=== PATIENT | female | born 1955 | race American Indian/Alaskan Native ===

== ENCOUNTER 2016-08-20 14:52 | Outpatient (CLI) | payer BC | END 2016-08-20 14:53 | disposition home or self-care (01) | LOC: LABHHL 14:52 | PROVIDERS: ATTEND Internal Medicine Gastroenterology | DX: D12.6 Benign neoplasm of colon, unspecified (principal) | CPT/HCPCS: 88305 ==

== ENCOUNTER 2019-10-01 04:50 | Inpatient (IN) | payer BC ==
--- NOTE | 2019-10-01 05:35 | Emergency Department Report ---
Blank Doc - Documentation Documentation: 64-year-old female with history of hypertension, diabetes presents to ED with shortness of breath. Patient arrives to ED via EMS. Upon arrival at patient's home, EMS reports patient had room air O2 sats in the 40s. States O2 sats improved to the 90s on nonrebreather. 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 Patient states she was sent home 5 days ago from work due to URI symptoms. Patient denies fever, vomiting, diarrhea. Reports cough, headache, loss of sense of smell and taste. Patient has not been tested for COVID-19. Here in the ED, her O2 sats are 74% on nonrebreather, respiratory rate in the 50s. Patient states she does not want to be intubated. For now, patient has been placed on high flow nasal cannula, and instructed to lay in the prone position. O2 sats have increased to 88%. Preliminary labs and CXR ordered.
[2019-10-01 06:17] LABS: INR 1.15 (0.87-1.13)
[2019-10-01] MEDS ORDERED: IPRATROPIUM 0.02% NEBU 2.5 ML IH ONE (06:17)
[2019-10-01] MEDS ORDERED: ALBUTEROL 2.5 MG/3 ML NEBU IH ONE (06:17)
[2019-10-01 06:18] LABS: Partial Thromboplastin Time 28.6 Sec. (24.2-36.6)
--- NOTE | 2019-10-01 06:23 | XRay Report ---
CHEST 1 VIEW 5:42 AM INDICATION / CLINICAL INFORMATION: Shortness of breath and cough. COMPARISON: None available. FINDINGS: SUPPORT DEVICES: None. HEART / MEDIASTINUM: The heart size and pulmonary vasculature are normal. LUNGS / PLEURA: There is moderately severe parenchymal disease throughout both lungs, more prominent in the lower lung zones especially peripherally. Disease is predominantly groundglass in appearance. No significant pleural effusion. No pneumothorax. ADDITIONAL FINDINGS: No significant additional findings. IMPRESSION: Moderately severe groundglass parenchymal disease bilaterally, more prominent in the mid to lower lung zones peripherally. Atypical causes of pneumonia, including viral pneumonia, should be considered. Signer Name: Alphonse Chan MD Signed: 10/01/2019 6:18 AM Workstation Name: [id number]
[2019-10-01 06:25] LABS: Alanine Aminotransferase 64 units/L (7-56); Albumin 3.4 g/dL (3.9-5); BUN/Creatinine Ratio 24; Bilirubin,Direct < 0.2 mg/dL (0-0.2); Blood Urea Nitrogen 34 mg/dL (7-17); Calcium 8.9 mg/dL (8.4-10.2); Hemolysis Index 24
[2019-10-01] MEDS ORDERED: AZITHROMYCIN 500 MG in SODIUM CHLORIDE 0.9% 250ML 250 ML IV ONE (06:25)
[2019-10-01] MEDS ORDERED: cefTRIAXone/NS 1 GM/50 ML 1 GM/50 ML BAG IV ONE (06:25)
[2019-10-01 06:27] LABS: C-Reactive Protein 15.1 mg/dL (0.00-1.30)
[2019-10-01] MEDS ORDERED: SODIUM CHLORIDE 0.9% 1000 ML 1,000 ML IV ONE (06:31)
--- NOTE | 2019-10-01 06:44 | Emergency Department Report ---
HPI - General Chief Complaint: Dyspnea/Respdistress Time Seen by Provider: 10/01/19 06:05 - HPI HPI: This is a 64-year-old -[place] Citizen female presents to the emergency department via EMS from home with a complaint of shortness of breath and coughing that has been getting progressively worse over the past 4 days. 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 She denies any tobacco or illicit drug use. When EMS arrived to her house they found her to be short of breath with a pulse ox of 43% on room air. She was placed on a nonrebreather and transported to our facility. She denies any fever, chest pain, nausea, vomiting. ED Past Medical Hx - Social History Smoking Status: Never Smoker Substance Use Type: None ED Review of Systems ROS: Stated complaint: SOB Other details as noted in HPI Comment: All other systems reviewed and negative Constitutional: weakness. denies: fever Eyes: denies: eye pain, vision change ENT: denies: ear pain, throat pain Respiratory: cough, shortness of breath Cardiovascular: denies: chest pain, palpitations Gastrointestinal: denies: abdominal pain, vomiting Genitourinary: denies: dysuria, discharge Musculoskeletal: denies: back pain, arthralgia Skin: denies: rash, lesions Neurological: denies: headache, weakness Physical Exam - Physical Exam Vital Signs: Vital Signs 10/01/19 10/01/19 10/01/19 05:09 05:41 06:30 Temperature 98.0 F Pulse Rate 100 H Pulse Rate [ Throughout] Respiratory 26 H 26 H Rate Respiratory Rate [ Throughout] Blood Pressure 160/94 O2 Sat by Pulse 72 L 72 L 86 Oximetry 10/01/19 06:37 Temperature Pulse Rate Pulse Rate [ 98 H Throughout] Respiratory Rate Respiratory 40 H Rate [ Throughout] Blood Pressure O2 Sat by Pulse Oximetry Physical Exam: GENERAL: The patient is well-developed well-nourished. Ill-appearing. HENT: Normocephalic. Atraumatic. Patient has moist mucous membranes. EYES: Extraocular motions are intact. NECK: Supple. Trachea is midline. CHEST/LUNGS: There is tachypnea, accessory muscle use and conversational dyspne a. There is respiratory distress noted. HEART/CARDIOVASCULAR: Regular. There is moderate tachycardia. There is no murmur. ABDOMEN: Abdomen is soft, nontender. There is no abdominal distention. SKIN: Skin is warm and dry. NEURO: The patient is awake, alert, and oriented. No focal, motor or sensory deficits. MUSCULOSKELETAL: There is no tenderness or deformity. There is no evidence of acute injury. ED Course Vital Signs 10/01/19 10/01/19 10/01/19 05:09 05:41 06:30 Temperature 98.0 F Pulse Rate 100 H Pulse Rate [ Throughout] Respiratory 26 H 26 H Rate Respiratory Rate [ Throughout] Blood Pressure 160/94 O2 Sat by Pulse 72 L 72 L 86 Oximetry 10/01/19 06:37 Temperature Pulse Rate Pulse Rate [ 98 H Throughout] Respiratory Rate Respiratory 40 H Rate [ Throughout] Blood Pressure O2 Sat by Pulse Oximetry - ABG Interpretation Ph: [phone] PCO2: 46 PO2: 60 Bicarbonate: 20 Interpretation: respiratory acidosis, metabolic acidosis - Intubation Time Out Performed: Yes Sedative: Etomidate Mg Given: 20 Paralytic: Rocuronium Mg Given: 80 Laryngoscope: other ([place] Scope) Size: 4 ET Tube Size: 7.5 Tube Secured Depth (cm): 24 Tube Secured Location: lips Tube Placement Confirmation: visualized tube passing t, equal breath sounds bilat, confirmation by capnometr Intubation Complications: none ED Medical Decision Making - Lab Data Result diagrams: 10/01/19 06:31 10/01/19 12:24 - EKG Data -: EKG Interpreted by Me EKG shows normal: sinus rhythm, axis (Left axis deviation), intervals, QRS complexes (LVH), ST-T waves Rate: tachycardia (102 bpm) - EKG Data When compared to previous EKG there are: previous EKG unavailable Interpretation: LVH (With mild tachycardia at 103 bpm) - Radiology Data Radiology results: image reviewed interpreted by me: Chest x-ray shows diffuse bilateral opacities. - Medical Decision Making This patient presents to the emergency department with a 4-day history of progressively worsening shortness of breath and cough. Patient was hypoxic when picked up by EMS and continues to have some hypoxia in the high 80s and low 90s with high flow nasal cannula. On top of that patient continues to have some increased work of breathing with tachypnea and conversational dyspnea and accessory muscle use. I spoke to the patient about possibility of intubation but she is very resistant. Patient was placed on BiPAP which did help at first with her oxygen saturation and work of breathing. She was given some IV fluid resuscitation and DuoNeb breathing treatment. A chest x-ray was done which shows diffuse opacities. Patient's labs shows acute kidney injury/renal i nsufficiency, and a mild elevation in the LFTs, elevated inflammatory markers such as d-dimer, CRP, LDH, ferritin. Eventually patient stopped tolerating the BiPAP. She has been pulling out IVs and continuously pulls off her mask. At this point I once again spoke with patient and spoke with her about intubation and she was in agreement. She was given rocuronium and etomidate and intubated successfully using the glide scope. Patient's coronavirus PCR has just come back positive. She is being admitted to the ICU and was accepted for admission by the hospitalist service. Critical Care Time: Yes Critical care time in (mins) excluding proc time.: 45 Critical care attestation.: If time is entered above; I have spent that time in minutes in the direct care of this critically ill patient, excluding procedure time. Critical care time was spent on this patient in doing her initial evaluation, multiple re-evaluations, ordering and interpretation of labs and imaging, IV fluid resuscitation, IV antibiotics, titration of supplemental oxygen and mechanical ventilation with BiPAP. This does not include the time spent doing the intubation procedure. Critical Care Time: 45 minutes ED Disposition Clinical Impression: Suspected 2019 novel coronavirus infection, Hyperglycemia, Hypoxia, FANI (acute kidney injury) Acute respiratory failure Qualifiers: Respiratory failure complication: hypoxia Qualified Code(s): J96.01 - Acute respiratory failure with hypoxia Disposition: -09 OP ADMIT IP TO THIS HOSP Is pt being admited?: Yes Condition: Serious Time of Disposition: 08:04
[2019-10-01 07:43] LABS: Hematocrit 41.7 % (30.3-42.9); Hemoglobin 13.7 gm/dl (10.1-14.3); Mean Corpuscular HGB Conc 33 % (30-34); Mean Corpuscular Volume 91 fl (79-97); Platelet Count 259 K/mm3 (140-440); Red Cell Distribution Width 14.7 % (13.2-15.2)
[2019-10-01] MEDS ORDERED: INSULIN REGULAR, HUMAN 100 UNITS/1 ML IV ONE (08:01)
--- NOTE | 2019-10-01 08:33 | History and Physical Report ---
History of Present Illness Date of examination: 10/01/19 Date of admission: 10/01/19 Chief complaint: Hypoxic respiratory failure History of present illness: Patient is a 64-year-old female with past medical history of hypertension, diabetes presents to ED with shortness of breath. 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 and a few days ago was sent home due to upper respiratory infection syndromes. Unfortunately the symptoms worsened and the patient activated the EMS system and according to documentation upon arrival to the first to the home patient was noted to have an oxygen sat in the 40s which improved to the 90s and a nonrebreather. On arrival to the ED the patient was with increased work of breathing while the patient reports shortness of breath and cough with associated headache and loss of sense of smell and taste she denied any nausea vomiting or diarrhea she denied week evaluation in the ED showed that her respiratory rate was closer to the 50s the patient refused intubation. She was placed on a BiPAP and were consulted to admit the patient. Patient very lethargic could not provide me much information is arrest information is obtained from record Past History Past Medical History: hypertension, hyperlipidemia Past Surgical History: No surgical history Social history: no significant social history Family history: no significant family history Medications and Allergies Allergies Allergy/AdvReac Type Severity Reaction Status Date / Time No Known Allergies Allergy Verified 10/01/19 06:31 Active Meds: Active Medications Sodium Chloride (Nacl 0.9% 1000 Ml) 1,000 mls @ 125 mls/hr IV ONCE ONE Stop: 10/01/19 14:30 Review of Systems All systems: negative Constitutional: fatigue, weakness, malaise, lethargy, no fever, no chills Cardiovascular: shortness of breath Respiratory: shortness of breath Exam - Physical Exam Narrative exam: VITAL SIGNS: Reviewed. GENERAL: The patient appears normally developed, Vital signs as documented. HEAD: No signs of head trauma. EYES: Pupils are equal. Extraocular motions intact. EARS: Hearing grossly intact. MOUTH: Oropharynx is normal. NECK: No adenopathy, no JVD. CHEST: Chest with diminished breath sounds bilaterally. With increased work of breathing no wheezes, rales, or rhonchi. CARDIAC: Tachycardic S1 and S2, without murmurs, gallops, or rubs. VASCULAR: No Edema. Peripheral pulses normal and equal in all extremities. ABDOMEN: Soft, non tender and non distended. No rebound or guarding, and no masses palpated. Bowel Sounds normal. MUSCULOSKELETAL: Good range of motion of all major joints. Extremities without clubbing, cyanosis or edema. NEUROLOGIC EXAM: Awake but lethargic anxious no focal sensory or strength deficits. Speech normal. Follows commands. PSYCHIATRIC: Mood anxious SKIN: detial exam as documented in skin assessment - Constitutional Vitals: Temp Pulse Resp BP Pulse Ox 98.0 F 98 H 40 H 160/94 86 10/01/19 05:09 10/01/19 06:37 10/01/19 06:37 10/01/19 05:09 10/01/19 06:30 HEART Score - HEART Score Troponin: Troponin T 0.018 ng/mL (0.00-0.029) 10/01/19 05:36 Results - Labs CBC & Chem 7: 10/01/19 06:31 10/01/19 12:24 Labs: Laboratory Last Values WBC 12.8 K/mm3 (4.5-11.0) H 10/01/19 06:31 RBC 4.60 M/mm3 (3.65-5.03) 10/01/19 06:31 Hgb 13.7 gm/dl (10.1-14.3) 10/01/19 06:31 Hct 41.7 % (30.3-42.9) 10/01/19 06:31 MCV 91 fl (79-97) 10/01/19 06:31 MCH 30 pg (28-32) 10/01/19 06:31 MCHC 33 % (30-34) 10/01/19 06:31 RDW 14.7 % (13.2-15.2) 10/01/19 06:31 Plt Count 259 K/mm3 (140-440) 10/01/19 06:31 Lymph % (Auto) Assistant Center Director 10/01/19 06:31 Pine % (Auto) Assistant Center Director 10/01/19 06:31 Eos % (Auto) Assistant Center Director 10/01/19 06:31 Baso % (Auto) Assistant Center Director 10/01/19 06:31 Lymph # Assistant Center Director 10/01/19 06:31 Pine # Assistant Center Director 10/01/19 06:31 Eos # Assistant Center Director 10/01/19 06:31 Baso # Assistant Center Director 10/01/19 06:31 Seg Neutrophils % Assistant Center Director 10/01/19 06:31 Seg Neutrophils # Assistant Center Director 10/01/19 06:31 PT 14.5 Sec. (12.2-14.9) 10/01/19 05:36 INR 1.15 (0.87-1.13) H 10/01/19 05:36 APTT 28.6 Sec. (24.2-36.6) 10/01/19 05:36 D-Dimer 1648.23 ng/mlDDU (0-234) H 10/01/19 05:36 Sodium 139 mmol/L (137-145) 10/01/19 05:36 Potassium 4.2 mmol/L (3.6-5.0) 10/01/19 05:36 Chloride 100.9 mmol/L (98-107) 10/01/19 05:36 Carbon Dioxide 13 mmol/L (22-30) L 10/01/19 05:36 Anion Gap 29 mmol/L 10/01/19 05:36 BUN 34 mg/dL (7-17) H 10/01/19 05:36 Creatinine 1.4 mg/dL (0.7-1.2) H 10/01/19 05:36 Estimated GFR 46 ml/min 10/01/19 05:36 BUN/Creatinine Ratio 24 % 10/01/19 05:36 Glucose 413 mg/dL (65-100) H 10/01/19 05:36 Glucose 424 mg/dL (65-100) H 10/01/19 05:36 Ketones Quantitative Negative (Negative) 10/01/19 06:31 Lactic Acid 7.20 mmol/L (0.7-2.0) H* 10/01/19 05:36 Calcium 8.9 mg/dL (8.4-10.2) 10/01/19 05:36 Ferritin 1745.0 ng/mL (13.0-400.0) H 10/01/19 05:36 Total Bilirubin 0.30 mg/dL (0.1-1.2) 10/01/19 05:36 Direct Bilirubin < 0.2 mg/dL (0-0.2) 10/01/19 05:36 Indirect Bilirubin 0.1 mg/dL 10/01/19 05:36 AST 54 units/L (5-40) H 10/01/19 05:36 ALT 64 units/L (7-56) H 10/01/19 05:36 Alkaline Phosphatase 94 units/L (35-129) 10/01/19 05:36 Lactate Dehydrogenase 822 units/L (91-180) H 10/01/19 05:36 Troponin T 0.018 ng/mL (0.00-0.029) 10/01/19 05:36 C-Reactive Protein 15.10 mg/dL (0.00-1.30) H 10/01/19 05:36 Total Protein 6.6 g/dL (6.3-8.2) 10/01/19 05:36 Albumin 3.4 g/dL (3.9-5) L 10/01/19 05:36 Albumin/Globulin Ratio 1.1 % 10/01/19 05:36 Microbiology: Microbiology 10/01/19 05:38 Peripheral/Venous Blood Culture - Preliminary Culture in Progress 10/01/19 05:36 Peripheral/Venous Blood Culture - Preliminary Culture in Progress Assessment and Plan Assessment and plan: Patient is a 64-year-old female with past medical history of hypertension, diabetes presents to ED with shortness of breath. 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 Unfortunately the symptoms worsened and the patient activated the EMS system and according to documentation upon arrival to the first to the home patient was noted to have an oxygen sat in the 40s which improved to the 90s and a nonrebreather. On arrival to the ED the patient was with increased work of breathing while the patient reports shortness of breath and cough with associated headache and loss of sense of smell and taste she denied any nausea vomiting or diarrhea she denied week evaluation in the ED showed that her respiratory rate was closer to the 50s the patient refused intubation. She was placed on a BiPAP and were consulted to admit the patient. Patient very lethargic could not provide me much information is arrest information is obtained from record Acute hypoxic respiratory failure Sepsis secondary to viral pneumonia Hypertensive urgency Diabetes mellitus Present under investigation highly suspicious for COVID-19 Secondary coagulopathy Plan Admit to ICU patient low threshold for intubation Pulmonary consult Infectious disease consult Continue antibiotics obtain COVID-19 testing and inflammatory markers which are currently elevated Monitor liver exams Continue empiric antibiotics Due to high suspicion for COVID-19 will not give aggressive fluid resuscitation at this time DVT and GI prophylaxis plan of care discussed with the patient and also with the ED nurse and physician. Also discussed with the consultants. The high probability of a clinically significant, sudden or life threatening deterioration of the [pulmonary] system(s) required my full and direct attention, intervention and personal management. The aggregate critical care time was [90] minutes. This time is in addition to time spent performing reported procedures but includes the following: [x] Data Review and interpretation [x] Patient assessment and monitoring of vital signs [x] Documentation [x] Medication orders and management Advance Directives: Yes Plan of care discussed with patient/family: Yes
[2019-10-01 08:41] LABS: Band Neutrophils # (Manual) 0.5 K/mm3; Basophils % (Manual) 0 % (0.0-1.8); Eosinophils % (Manual) 0 % (0.0-4.3); Platelet Estimate Consistent w Auto; RBC Morphology Normal; Total Cells Counted 100
[2019-10-01] MEDS ORDERED: NALOXONE 0.4 MG/1 ML INJ IV PRN (09:10)
[2019-10-01] MEDS ORDERED: METOCLOPRAMIDE 10 MG/2 ML INJ IV PRN (09:10)
[2019-10-01] MEDS ORDERED: DEXTROSE 50% IN WATER (25GM) 50 ML SYRINGE IV PRN (09:10)
[2019-10-01] MEDS ORDERED: ACETAMINOPHEN 325 MG TAB PO PRN (09:10)
[2019-10-01] MEDS ORDERED: ALBUTEROL 2.5 MG/3 ML NEBU IH PRN (09:10)
[2019-10-01] MEDS ORDERED: INSULIN NPH/REGULAR 70/30 INJ SUB-Q SCH (10:00)
[2019-10-01] MEDS ORDERED: ARFORMOTEROL 15 MCG/2 ML NEBU IH ONE (10:15)
[2019-10-01] MEDS: ARFORMOTEROL 15 MCG/2 ML NEBU IH SCH ×2 (10:29→23:15)
[2019-10-01] MEDS ORDERED: amLODIPine 10 MG TAB ONE (10:44)
[2019-10-01] MEDS: INSULIN NPH/REGULAR 70/30 INJ SUB-Q SCH ×2 (10:44→21:42)
[2019-10-01 13:16] LABS: C-Reactive Protein 18.6 mg/dL (0.00-1.30)
[2019-10-01] MEDS ORDERED: ETOMIDATE 20 MG/10 ML INJ IV ONE (13:25)
[2019-10-01] MEDS ORDERED: ROCURONIUM 50 MG/5 ML INJ IV ONE (13:26)
[2019-10-01] MEDS ORDERED: MINERAL OIL/PETROLATUM, WHITE OPHTH OINT 3.5 GM OU PRN (13:33)
[2019-10-01] MEDS ORDERED: LIP THERAPY VASELINE TP PRN (13:33)
--- NOTE | 2019-10-01 14:37 | XRay Report ---
CHEST 1 VIEW INDICATION: ETT placement. COMPARISON: 10/01/2019 FINDINGS: Support devices: Endotracheal tube terminates 5.4 cm superior to the natasha. A nasogastric tube termi nates just beyond the GE junction. Consider advancement by 5 to 10 cm. Heart: Within normal limits. Lungs/Pleura: Bilateral lung infiltrates appear relatively stable since earlier today. No pleural eff usion or pneumothorax. Additional findings: None. IMPRESSION: Lines and tubes as described. Stable bilateral infiltrates. Signer Name: Beka Riley Jr, MD Signed: 10/01/2019 2:33 PM Workstation Name: [id number]
[2019-10-01 14:38] LABS: ABG Base Excess -6.4 mmol/L (-2.0-3.0); ABG HCO3 20.6 mmol/L (20.0-26.0); ABG Methemoglobin 0.7 % (0.0-1.5); ABG Oxygen Saturation 88.2 % (95.0-99.0); ABG PCO2 46.7 mm Hg; ABG PH 7.263 pH Units (7.350-7.450); ABG PO2 60.7 mm Hg (80.0-90.0)
--- NOTE | 2019-10-01 14:47 | Consultation ---
History of Present Illness Consult date: 10/01/19 Requesting physician: ROBBY COATES Reason for consult: other (Acute hypercapnic and hypoxemic respiratory failure; Severe Sepsis) History of present illness: PULMONARY/CCM CONSULT NOTE (Full dictation # [id number]) Please see dictated notes for full details Medications and Allergies Allergies Allergy/AdvReac Type Severity Reaction Status Date / Time No Known Allergies Allergy Verified 10/01/19 06:31 Active Meds: Active Medications Acetaminophen (Tylenol) 650 mg PO Q6H PRN PRN Reason: Pain MILD(1-3)/Fever >100.5/PALOMARES Albuterol (Proventil) 2.5 mg IH Q3HRT PRN PRN Reason: Shortness Of Breath Albuterol/Ipratropium (Duoneb *Not For Prn Use*) 1 ampul IH Q6HRT [facility] Amlodipine Besylate (Amlodipine) 10 mg PO QDAY [facility] Arformoterol Tartrate (Brovana Nebu) 15 mcg IH Q12HRT [facility] Last Admin: 10/01/19 10:29 Dose: 15 mcg Documented by: Budesonide (Pulmicort) 0.5 mg IH Q12HRT [facility] Dextrose (D50w (25gm) Syringe) 50 ml IV Q30MIN PRN; Protocol PRN Reason: Hypoglycemia Hydralazine HCl (Apresoline) 10 mg IV Q4HR PRN PRN Reason: Hypertension Hydrophilic Ointment (Vaseline Lip Therapy) 1 applic TP Q2HR PRN PRN Reason: Dry Lips Ceftriaxone Sodium (Rocephin/Ns 2 Gm/100 Ml) 2 gm in 100 mls @ 200 mls/hr IV Q24HR [facility]; Protocol Azithromycin 500 mg/ Sodium (Chloride) 250 mls @ 250 mls/hr IV Q24HR [facility]; Protocol Propofol (Diprivan 10 Mg/Ml) 1,000 mg in 100 mls @ 1.905 mls/hr IV TITR [facility]; Protocol Insulin Human Isoph/Insulin Regular (Humulin 70/30) 30 unit SUB-Q BIDDIAB [facility] Last Admin: 10/01/19 10:44 Dose: 30 unit Documented by: Insulin Human Lispro (Humalog) 0 unit SUB-Q Q6HR [facility]; Protocol Methylprednisolone Sodium Succinate (Solu-Medrol) 40 mg IV Q8HR [facility] Metoclopramide HCl (Reglan) 10 mg IV Q6H PRN PRN Reason: Nausea And Vomiting Multi-Ingred Cream/Lotion/Oil/Oint (Artificial Tears Ophth Oint) 1 applic OU Q4HR PRN PRN Reason: Dry Eye(s) Naloxone HCl (Naloxone) 0.1 mg IV Q2MIN PRN PRN Reason: Res Rate </= 8 or 02 SAT < 92% Sodium Chloride (Sodium Chloride Flush Syringe 10 Ml) 10 ml IV BID [facility] Last Admin: 10/01/19 11:36 Dose: 10 ml Documented by: Sodium Chloride (Sodium Chloride Flush Syringe 10 Ml) 10 ml IV PRN PRN PRN Reason: LINE FLUSH Spironolactone (Aldactone) 50 mg PO BID [facility] Physical Examination Vital signs: Vital Signs Pulse Resp Pulse Ox 130 H 23 66 L 10/01/19 05:00 10/01/19 05:00 10/01/19 05:00 Results - Laboratory Findings CBC and BMP: 10/01/19 06:31 10/01/19 12:24 ABG ABG pH 7.263 pH Units (7.350-7.450) L 10/01/19 14:30 ABG pCO2 46.7 mm Hg 10/01/19 14:30 ABG pO2 60.7 mm Hg (80.0-90.0) L 10/01/19 14:30 ABG O2 Saturation 88.2 % (95.0-99.0) L 10/01/19 14:30 PT/INR, D-dimer PT 14.5 Sec. (12.2-14.9) 10/01/19 05:36 INR 1.15 (0.87-1.13) H 10/01/19 05:36 D-Dimer 1957.06 ng/mlDDU (0-234) H 10/01/19 12:24 Abnormal lab findings: Abnormal Labs 10/01/19 10/01/19 10/01/19 05:36 05:36 05:36 WBC Seg Neuts % (Manual) Lymphocytes % (Manual) Seg Neutrophils # Man Lymphocytes # (Manual) INR 1.15 H D-Dimer 1648.23 H ABG pH ABG pO2 ABG O2 Saturation ABG Base Excess Oxyhemoglobin Carbon Dioxide BUN Creatinine Glucose 424 H POC Glucose Lactic Acid Ferritin 1745.0 H AST ALT Lactate Dehydrogenase 822 H C-Reactive Protein 15.10 H Albumin 10/01/19 10/01/19 10/01/19 05:36 05:36 06:31 WBC 12.8 H Seg Neuts % (Manual) 93.0 H Lymphocytes % (Manual) 2.0 L Seg Neutrophils # Man 11.9 H Lymphocytes # (Manual) 0.3 L INR D-Dimer ABG pH ABG pO2 ABG O2 Saturation ABG Base Excess Oxyhemoglobin Carbon Dioxide 13 L BUN 34 H Creatinine 1.4 H Glucose 413 H POC Glucose Lactic Acid 7.20 H* Ferritin AST 54 H ALT 64 H Lactate Dehydrogenase C-Reactive Protein Albumin 3.4 L 10/01/19 10/01/19 10/01/19 10:05 12:24 12:24 WBC Seg Neuts % (Manual) Lymphocytes % (Manual) Seg Neutrophils # Man Lymphocytes # (Manual) INR D-Dimer 1957.06 H ABG pH ABG pO2 ABG O2 Saturation ABG Base Excess Oxyhemoglobin Carbon Dioxide BUN Creatinine Glucose 346 H POC Glucose 354 H Lactic Acid Ferritin AST ALT Lactate Dehydrogenase 766 H C-Reactive Protein 18.60 H Albumin 10/01/19 10/01/19 12:24 14:30 WBC Seg Neuts % (Manual) Lymphocytes % (Manual) Seg Neutrophils # Man Lymphocytes # (Manual) INR D-Dimer ABG pH 7.263 L ABG pO2 60.7 L ABG O2 Saturation 88.2 L ABG Base Excess -6.4 L Oxyhemoglobin 86.6 L Carbon Dioxide BUN Creatinine Glucose POC Glucose Lactic Acid Ferritin 1646.0 H AST ALT Lactate Dehydrogenase C-Reactive Protein Albumin
[2019-10-01] MEDS ORDERED: fentaNYL 100 MCG/2 ML INJ IV PRN (15:03)
[2019-10-01] MEDS ORDERED: fentaNYL DRIP Premix 2,000 MCG/100 ML BAG IV ONE (15:04)
[2019-10-01] MEDS ORDERED: niCARdipine DRIP 40 MG/200 ML BAG ONE (15:06)
[2019-10-01] MEDS: fentaNYL DRIP Premix 2,000 MCG/100 ML BAG IV SCH (15:10)
[2019-10-01] MEDS: amLODIPine 10 MG TAB PO SCH (15:21)
[2019-10-01] MEDS: SPIRONOLACTONE 50 MG TAB PO SCH (15:21)
[2019-10-01] MEDS ORDERED: methylPREDNISolone Sod Succinate 40 MG/1 ML INJ ONE (15:23)
[2019-10-01] MEDS: methylPREDNISolone Sod Succinate 40 MG/1 ML INJ IV SCH ×2 (15:35→15:41)
[2019-10-01] MEDS ORDERED: ENOXAPARIN 100 MG/1 ML INJ SUB-Q SCH (16:00)
[2019-10-01] MEDS ORDERED: FAMOTIDINE 20 MG TAB PO SCH ×2 (16:00)
[2019-10-01] MEDS ORDERED: niCARdipine 50 MG in SODIUM CHLORIDE 0.9% 250ML 230 ML IV SCH (16:00)
[2019-10-01] MEDS ORDERED: NICARDIPINE IV SCH (16:00)
[2019-10-01] MEDS ORDERED: SODIUM CHLORIDE IV SCH (16:00)
[2019-10-01] MEDS: INSULIN LISPRO 100 UNIT/ML SUB-Q SCH ×2 (16:07→21:42)
[2019-10-01] MEDS ORDERED: IPRATROPIUM/ALBUTEROL SULFATE 3 ML AMPUL.NEB IH ONE (16:38)
[2019-10-01] MEDS: IPRATROPIUM/ALBUTEROL SULFATE 3 ML AMPUL.NEB IH SCH ×2 (16:51→23:13)
[2019-10-01] MEDS ORDERED: ENOXAPARIN 30 MG/0.3 ML INJ SUB-Q ONE (17:25)
--- NOTE | 2019-10-01 17:33 | Consultation ---
PULMONARY CRITICAL CARE CONSULTATION NOTE CONSULTING PHYSICIAN: Yeyo Robertson M.D. REASON FOR CONSULTATION: Critical care management, acute hypoxemic respiratory failure and bilateral pneumonia. CHIEF COMPLAINT AND HISTORY OF PRESENT ILLNESS: As follows: The patient is a 64-year-old -[place] female with past medical history according to the record significant for a diagnosis of hypertension and diabetes, presented to the Emergency Room via EMS with shortness of breath and coughing. It had been going on for about 4-5 days. 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 She got worse at home with increasing dyspnea on exertion and shortness of breath. She was brought into the ER on a nonrebreather. She had been found with O2 sats of 43% on room air. In the Emergency Room, she continued to decompensate, a trial of bilevel positive airway pressure ventilation therapy was unsuccessful, and ultimately she agreed for intubation. When I stopped by to see her, she was on the mechanical ventilator. I believe a rate of 20, tidal volumes 400, PEEP of 6, 100% FiO2, O2 sats were barely in the 90s. She was sedated, unable to give me more of her history. I do not have any history of vomiting or overt aspiration. This really is as much of the history of presentation as I have. PAST MEDICAL HISTORY: Again, significant for diabetes, hypertension. She is obese. PAST SURGICAL HISTORY: Unknown. MEDICATIONS: She was on at the time I stopped by to see her were reviewed. Pertinent medications included the following: DuoNeb nebulizer treatment scheduled q. 6 hours, Tylenol 650 mg p.o. q. 4 hours p.r.n. mild pain or fevers, all p.o. meds via the feeding tube, amlodipine 10 mg p.o. daily, Brovana 15 mcg nebulized q. 12 hours, azithromycin 500 mg IV daily, Pulmicort 0.5 mg nebulized q.12 hours, Rocephin 2 g IV daily, hydralazine 10 mg IV q. 4 hours p.r.n. elevated blood pressures; insulin 70/30, 30 units subcutaneous b.i.d. as well as insulin via sliding scale; Solu-Medrol 40 mg IV q. 8 hours, Reglan 10 mg IV q. 6 hours p.r.n. nausea and vomiting, Propofol was going at 5 mcg per kilogram per minute, Aldactone 50 mg p.o. b.i.d. ALLERGIES: No known drug allergies. DIET: Obese lady, acute weight loss or gain history is unknown. FAMILY AND SOCIAL HISTORY: Lives in the community. Denied alcohol, tobacco, or illicit drug use or abuse at presentation. Family history is otherwise unobtainable and unknown. REVIEW OF SYSTEMS: Unobtainable secondary to patient's medical and mental condition. Since she has been here, no gross hematochezia or melena, no gross hematuria, no hematemesis, no hemoptysis, no witnessed seizures. Review of systems otherwise unobtainable or as in the body of history above. PHYSICAL EXAMINATION: VITAL SIGNS: At presentation, she was afebrile, temperature 98.0 degrees Fahrenheit, pulse 130, respiratory rate 26, blood pressure was 160/94, O2 sats were as low as 66%. Inspired oxygen concentration at that time was not recorded. When I stopped by to see her, O2 sats were 93% on the above-mentioned ventilator settings. GENERAL: Elderly looking obese female, normocephalic, atraumatic, on the mechanical ventilator with mildly increased respiratory effort at rest. HEAD, EYES, EARS, NOSE AND THROAT: She was anicteric, no conjunctival erythema. Oropharynx was moist. Endotracheal tube was taped at the lips around 23-24 cm. NECK: She had some jugular venous distention almost up to the angle of the jaw. She has a large neck circumference. No thyromegaly. Grossly, there were no palpable lymph nodes in the supraclavicular or submandibular lymph node chains. LUNGS: Auscultation of both lung landeros revealed bilateral rales, slightly prolonged expiratory phase. No active wheezing. HEART: Heart sounds 1 and 2 were heard, regular. Tachycardia. At the time of my evaluation without overt rubs or murmurs. ABDOMEN: Soft, full, bowel sounds are positive, nontender, no palpable hepatosplenomegaly. EXTREMITIES: Without overt digital clubbing or cyanosis. No pedal edema. Pedal pulses are 2+ bilaterally. NEUROLOGIC: Pupils are equal, round, about 3 mm, sluggishly reactive to light. Extraocular muscle movements could not be assessed. She had spontaneous movements to all 4 extremities, but she was sedated at that time. SKIN: Normal turgor without overt cellulitis or rash in the areas examined. Please see the wound care nurses' notes and registered nurse's notes for full description of her skin. PSYCHIATRIC: Mood and affect were unassessable due to the sedation LABORATORY DATA: From my review are as follows: Admission white cell count 12,800, hemoglobin 13.7, hematocrit 41.7, platelet count 259, 4% band neutrophils. INR 1.15. D-dimer elevated at 1648. Serum sodium is 139, potassium 4.2, chloride 101, bicarbonate 13, BUN 34, creatinine 1.4, glucose 413. Lactic acid level was 7.20. Ferritin elevated at 1745. AST was 54, ALT was 64. LDH 822. CRP 15.1. Coronavirus PCR is positive. Arterial blood gas shows a pH of 7.26, pCO2 of 47, pO2 of 61 on 100%; however, that was immediately post-intubation. Two sets of blood cultures, no growth to date. Chest x-ray post-intubation shows the endotracheal tube in good position, tip of the lower level of the clavicular heads around the aortic knob, bilateral alveolar and interstitial type infiltrates, no pleural effusions that I can see. Cardiovascular silhouette is obscured, but appears borderline normal. No gross pneumothorax that I can see. A feeding tube is seen coursing through the mediastinum and going below the diaphragm. No gross bony fractures that I can see. ASSESSMENT: 1. Acute hypoxemic respiratory failure, on mechanical ventilatory support. 2. Acute respiratory distress syndrome. 3. COVID-19 virus infection. 4. Bilateral pneumonia. 5. Possible pulmonary edema. 6. Severe sepsis. 7. Leukocytosis. 8. Acute kidney injury. 9. Hyperglycemia. 10. Lactic acidosis. 11. Elevated serum transaminases. 12. Oropharyngeal dysphagia. PLAN: She is a little unstable at this point. We will continue full mechanical ventilatory support. I will be repeating the arterial blood gas in about a couple of hours, make changes as necessary. We will allow some element of permissive hypercapnia. I will try and use as little positive end expiratory pressure as possible, ventilator-associated pneumonia bundle has been introduced. Oxygen will be weaned to keep sats in the 92-96% range. Specific COVID-19 directed interventions will include airborne, droplet and contact precautions. She will be on vitamin C, zinc supplementation as well as vitamin D. I will be contacting the Infectious Disease team. She will be a candidate for ancillary interventions including the Actemra, convalescent plasma, plus or minus remdesivir. I will continue community-acquired pneumonia therapy for now. I am going to be starting her on some fentanyl for pain and analgesia, a Cardene drip is also going to be started as her systolics are in the 220s right now. Sedation titrate will be RASS of -1 to -2. Enteral nutrition will be the feeding modality of choice. She will be placed on GI prophylaxis. She is going to be fully anticoagulated in lieu of a CT angio, but for the coagulopathy associated with this severe COVID-19 infection. Consideration will be given for a 2D echocardiogram, especially in light of her jugular venous distention, borderline cardiomegaly and the possibility of a true congestive heart failure, cardioplegia or cardiomyopathy. A 12-lead EKG will be reviewed. Flu and pneumonia vaccination will be addressed per protocol. Thank you very much for the consult. We will follow along and make further recommendations as picture progresses/becomes clearer. She is critically ill on life-sustaining interventions including mechanical ventilatory support, at high risk of from cardiopulmonary system decompensation. At this time, I spent about 40-45 minutes of critical care time without overlap excluding any procedural time that may be necessary. JOB# [id number] VELASQUEZ/RAMON MARCUS
[2019-10-01 17:38] LABS: ABG Base Excess -4.8 mmol/L (-2.0-3.0); ABG HCO3 21.7 mmol/L (20.0-26.0); ABG Methemoglobin 0.7 % (0.0-1.5); ABG Oxygen Saturation 83.2 % (95.0-99.0); ABG PCO2 46.2 mm Hg; ABG PH 7.289 pH Units (7.350-7.450); ABG PO2 52.1 mm Hg (80.0-90.0)
[2019-10-01] MEDS: ASCORBIC ACID 500 MG TAB PO SCH (17:48)
[2019-10-01] MEDS: ZINC SULFATE 220 MG CAP PO SCH (17:48)
--- NOTE | 2019-10-01 17:57 | Consultation ---
History of Present Illness - Reason for Consult Consult date: 10/01/19 COVID Requesting physician: ROBBY COATES - History of Present Illness The patient is a 64-year-old female who came into the emergency room with complaints of shortness of breath and cough. She has a history of diabetes and hypertension. Due to significant hypoxia, she was intubated and placed on m echanical ventilation. COVID-19 test is positive. Infectious diseases was consulted for additional evaluation. Additionally, her labs show ferritin 1646, procalcitonin 1.73, LDH 766, CRP 18.6, mild transaminitis, d-dimer 1957. Review of Systems: reviewed in the chart, unable to obtain directly due to PPE shortage and preservation Medications and Allergies Allergies Allergy/AdvReac Type Severity Reaction Status Date / Time No Known Allergies Allergy Verified 10/01/19 06:31 Active Meds: Active Medications Acetaminophen (Tylenol) 650 mg PO Q6H PRN PRN Reason: Pain MILD(1-3)/Fever >100.5/PALOMARES Albuterol (Proventil) 2.5 mg IH Q3HRT PRN PRN Reason: Shortness Of Breath Albuterol/Ipratropium (Duoneb *Not For Prn Use*) 1 ampul IH Q6HRT [facility] Last Admin: 10/01/19 16:51 Dose: 1 ampul Documented by: Amlodipine Besylate (Amlodipine) 10 mg PO QDAY [facility] Last Admin: 10/01/19 15:21 Dose: Not Given Documented by: Arformoterol Tartrate (Brovana Nebu) 15 mcg IH Q12HRT [facility] Last Admin: 10/01/19 10:29 Dose: 15 mcg Documented by: Ascorbic Acid (Vitamin C) 500 mg PO BID [facility] Last Admin: 10/01/19 17:48 Dose: Not Given Documented by: Azithromycin (Zithromax) 500 mg PO QDAY [facility] Budesonide (Pulmicort) 0.5 mg IH Q12HRT [facility] Dextrose (D50w (25gm) Syringe) 50 ml IV Q30MIN PRN; Protocol PRN Reason: Hypoglycemia Enoxaparin Sodium (Enoxaparin) 60 mg SUB-Q Q12HR [facility] Famotidine (Pepcid) 20 mg PO DAILY [facility] Last Admin: 10/01/19 17:48 Dose: Not Given Documented by: Fentanyl (Sublimaze) 50 mcg IV Q10MIN PRN PRN Reason: ANALGESIA Hydralazine HCl (Apresoline) 10 mg IV Q4HR PRN PRN Reason: Hypertension Hydrophilic Ointment (Vaseline Lip Therapy) 1 applic TP Q2HR PRN PRN Reason: Dry Lips Ceftriaxone Sodium (Rocephin/Ns 2 Gm/100 Ml) 2 gm in 100 mls @ 200 mls/hr IV Q2 4HR [facility]; Protocol Propofol (Diprivan 10 Mg/Ml) 1,000 mg in 100 mls @ 1.905 mls/hr IV TITR [facility]; Protocol Last Titration: 10/01/19 15:15 Dose: 10 mcg/kg/min, 3.81 mls/hr Documented by: Fentanyl Citrate (Fentanyl Drip Premix) 2,000 mcg in 100 mls @ 3.175 mls/hr IV TITR [facility]; Protocol Last Titration: 10/01/19 15:41 Dose: 2 mcg/kg/hr, 6.35 mls/hr Documented by: Nicardipine HCl 50 mg/ Sodium (Chloride) 250 mls @ 25 mls/hr IV TITR [facility]; Protocol Last Titration: 10/01/19 16:00 Dose: 0 mg/hr, 0 mls/hr Documented by: TOCILIZUMAB 400 mg/ Sodium (Chloride) 120 mls @ 120 mls/hr IV ONCE ONE Stop: 10/01/19 18:53 Insulin Human Isoph/Insulin Regular (Humulin 70/30) 30 unit SUB-Q BIDDIAB [facility] Last Admin: 10/01/19 10:44 Dose: 30 unit Documented by: Insulin Human Lispro (Humalog) 0 unit SUB-Q Q6HR [facility]; Protocol Last Admin: 10/01/19 16:07 Dose: Not Given Documented by: Methylprednisolone Sodium Succinate (Solu-Medrol) 40 mg IV Q8HR [facility] Last Admin: 10/01/19 15:41 Dose: Not Given Documented by: Metoclopramide HCl (Reglan) 10 mg IV Q6H PRN PRN Reason: Nausea And Vomiting Multi-Ingred Cream/Lotion/Oil/Oint (Artificial Tears Ophth Oint) 1 applic OU Q4HR PRN PRN Reason: Dry Eye(s) Naloxone HCl (Naloxone) 0.1 mg IV Q2MIN PRN PRN Reason: Res Rate </= 8 or 02 SAT < 92% Sodium Chloride (Sodium Chloride Flush Syringe 10 Ml) 10 ml IV BID [facility] Last Admin: 10/01/19 11:36 Dose: 10 ml Documented by: Sodium Chloride (Sodium Chloride Flush Syringe 10 Ml) 10 ml IV PRN PRN PRN Reason: LINE FLUSH Spironolactone (Aldactone) 50 mg PO BID [facility] Last Admin: 10/01/19 15:21 Dose: Not Given Documented by: Zinc Sulfate (Zinc Sulfate) 220 mg PO BID [facility] Last Admin: 10/01/19 17:48 Dose: Not Given Documented by: Physical Examination - Physical Exam Narrative exam: Physical Exam (reviewed in chart due to PPE conservation) Constitutional: intubated, sedated, on the vent Head, Ears, Nose: normocephalic, atraumatic Eyes: limited due to PPE conservation strategy Neck: intubated Oral: intubated Cardiovascular: limited due to PPE conservation strategy Respiratory: limited due to PPE conservation strategy GI: limited due to PPE conservation strategy Musculoskeletal: limited due to PPE conservation strategy Skin: limited due to PPE conservation strategy Hem/Lymphatic: limited due to PPE conservation strategy Psych: no agitation Neurological: sedated, intubated, on the vent, exam limited - Constitutional Vitals: Vital Signs Temp Pulse Resp BP Pulse Ox 97.9 F 90 22 120/75 86 10/01/19 09:41 10/01/19 17:46 10/01/19 17:46 10/01/19 17:46 10/01/19 17:46 Temperature -Last 24 Hours Temperature 97.9 F Temperature 98.0 F Results - Labs CBC & Chem 7: 10/01/19 06:31 10/01/19 12:24 Labs: Abnormal lab results 10/01/19 10/01/19 10/01/19 Range/Units 05:36 05:36 05:36 WBC (4.5-11.0) K/mm3 Seg Neuts % (Manual) (40.0-70.0) % Lymphocytes % (Manual) (13.4-35.0) % Seg Neutrophils # Man (1.8-7.7) K/mm3 Lymphocytes # (Manual) (1.2-5.4) K/mm3 INR 1.15 H (0.87-1.13) D-Dimer 1648.23 H (0-234) ng/mlDDU ABG pH (7.350-7.450) pH Units ABG pO2 (80.0-90.0) mm Hg ABG O2 Saturation (95.0-99.0) % ABG Base Excess (-2.0-3.0) mmol/L ABG Hemoglobin (12.0-16.0) gm/dl Oxyhemoglobin (95.0-99.0) % Carbon Dioxide (22-30) mmol/L BUN (7-17) mg/dL Creatinine (0.7-1.2) mg/dL Glucose 424 H (65-100) mg/dL POC Glucose (70-105) Lactic Acid (0.7-2.0) mmol/L Ferritin 1745.0 H (13.0-400.0) ng/mL AST (5-40) units/L ALT (7-56) units/L Lactate Dehydrogenase 822 H (91-180) units/L C-Reactive Protein 15.10 H (0.00-1.30) mg/dL Albumin (3.9-5) g/dL Coronavirus (PCR) (Negative) 10/01/19 10/01/19 10/01/19 Range/Units 05:36 05:36 06:31 WBC 12.8 H (4.5-11.0) K/mm3 Seg Neuts % (Manual) 93.0 H (40.0-70.0) % Lymphocytes % (Manual) 2.0 L (13.4-35.0) % Seg Neutrophils # Man 11.9 H (1.8-7.7) K/mm3 Lymphocytes # (Manual) 0.3 L (1.2-5.4) K/mm3 INR (0.87-1.13) D-Dimer (0-234) ng/mlDDU ABG pH (7.350-7.450) pH Units ABG pO2 (80.0-90.0) mm Hg ABG O2 Saturation (95.0-99.0) % ABG Base Excess (-2.0-3.0) mmol/L ABG Hemoglobin (12.0-16.0) gm/dl Oxyhemoglobin (95.0-99.0) % Carbon Dioxide 13 L (22-30) mmol/L BUN 34 H (7-17) mg/dL Creatinine 1.4 H (0.7-1.2) mg/dL Glucose 413 H (65-100) mg/dL POC Glucose (70-105) Lactic Acid 7.20 H* (0.7-2.0) mmol/L Ferritin (13.0-400.0) ng/mL AST 54 H (5-40) units/L ALT 64 H (7-56) units/L Lactate Dehydrogenase (91-180) units/L C-Reactive Protein (0.00-1.30) mg/dL Albumin 3.4 L (3.9-5) g/dL Coronavirus (PCR) (Negative) 10/01/19 10/01/19 10/01/19 Range/Units 10:05 12:24 12:24 WBC (4.5-11.0) K/mm3 Seg Neuts % (Manual) (40.0-70.0) % Lymphocytes % (Manual) (13.4-35.0) % Seg Neutrophils # Man (1.8-7.7) K/mm3 Lymphocytes # (Manual) (1.2-5.4) K/mm3 INR (0.87-1.13) D-Dimer 1957.06 H (0-234) ng/mlDDU ABG pH (7.350-7.450) pH Units ABG pO2 (80.0-90.0) mm Hg ABG O2 Saturation (95.0-99.0) % ABG Base Excess (-2.0-3.0) mmol/L ABG Hemoglobin (12.0-16.0) gm/dl Oxyhemoglobin (95.0-99.0) % Carbon Dioxide (22-30) mmol/L BUN (7-17) mg/dL Creatinine (0.7-1.2) mg/dL Glucose 346 H (65-100) mg/dL POC Glucose 354 H (70-105) Lactic Acid (0.7-2.0) mmol/L Ferritin (13.0-400.0) ng/mL AST (5-40) units/L ALT (7-56) units/L Lactate Dehydrogenase 766 H (91-180) units/L C-Reactive Protein 18.60 H (0.00-1.30) mg/dL Albumin (3.9-5) g/dL Coronavirus (PCR) (Negative) 10/01/19 10/01/19 10/01/19 Range/Units 12:24 14:30 17:20 WBC (4.5-11.0) K/mm3 Seg Neuts % (Manual) (40.0-70.0) % Lymphocytes % (Manual) (13.4-35.0) % Seg Neutrophils # Man (1.8-7.7) K/mm3 Lymphocytes # (Manual) (1.2-5.4) K/mm3 INR (0.87-1.13) D-Dimer (0-234) ng/mlDDU ABG pH 7.263 L 7.289 L (7.350-7.450) pH Units ABG pO2 60.7 L 52.1 L (80.0-90.0) mm Hg ABG O2 Saturation 88.2 L 83.2 L (95.0-99.0) % ABG Base Excess -6.4 L -4.8 L (-2.0-3.0) mmol/L ABG Hemoglobin 10.5 L (12.0-16.0) gm/dl Oxyhemoglobin 86.6 L 81.4 L (95.0-99.0) % Carbon Dioxide (22-30) mmol/L BUN (7-17) mg/dL Creatinine (0.7-1.2) mg/dL Glucose (65-100) mg/dL POC Glucose (70-105) Lactic Acid (0.7-2.0) mmol/L Ferritin 1646.0 H (13.0-400.0) ng/mL AST (5-40) units/L ALT (7-56) units/L Lactate Dehydrogenase (91-180) units/L C-Reactive Protein (0.00-1.30) mg/dL Albumin (3.9-5) g/dL Coronavirus (PCR) (Negative) 10/01/19 Range/Units Unknown WBC (4.5-11.0) K/mm3 Seg Neuts % (Manual) (40.0-70.0) % Lymphocytes % (Manual) (13.4-35.0) % Seg Neutrophils # Man (1.8-7.7) K/mm3 Lymphocytes # (Manual) (1.2-5.4) K/mm3 INR (0.87-1.13) D-Dimer (0-234) ng/mlDDU ABG pH (7.350-7.450) pH Units ABG pO2 (80.0-90.0) mm Hg ABG O2 Saturation (95.0-99.0) % ABG Base Excess (-2.0-3.0) mmol/L ABG Hemoglobin (12.0-16.0) gm/dl Oxyhemoglobin (95.0-99.0) % Carbon Dioxide (22-30) mmol/L BUN (7-17) mg/dL Creatinine (0.7-1.2) mg/dL Glucose (65-100) mg/dL POC Glucose (70-105) Lactic Acid (0.7-2.0) mmol/L Ferritin (13.0-400.0) ng/mL AST (5-40) units/L ALT (7-56) units/L Lactate Dehydrogenase (91-180) units/L C-Reactive Protein (0.00-1.30) mg/dL Albumin (3.9-5) g/dL Coronavirus (PCR) Positive A (Negative) - Imaging and Cardiology Chest x-ray: report reviewed, image reviewed (b/l pneumonia) Assessment and Plan Cultures: 10/01/2019 coronavirus PCR: Positive 10/01/2019 blood culture: In process A/P: 64-year-old female with diabetes, hypertension admitted with: #Bilateral pneumonia: Secondary to COVID-19. Inflammatory markers are significantly elevated. #Acute hypoxic respiratory failure: On mechanical ventilation. #Mild transaminitis: Likely secondary to COVID-19 Recs: Continue steroids Actemra x 1 ordered Remdesivir ordered. There is a current shortage, if available, can administer trend ferritin, d-dimer, CRP every 2 days for risk stratification and to assess disease progression Agree with full anticoagulation Consider enrollment for convalescent plasma Given procalcitonin elevation, continue empiric antibiotics for now Ashly Booker MD, FACP [facility] C: [phone] O: [phone] F: [phone]
[2019-10-01] MEDS: ENOXAPARIN 60 MG/0.6 ML INJ SUB-Q SCH (18:07)
[2019-10-01] MEDS ORDERED: TOCILIZUMAB 400 MG in SODIUM CHLORIDE 0.9% 100 ML IV ONE (18:30)
[2019-10-01] MEDS ORDERED: INSULIN LISPRO 100 UNIT/ML SUB-Q ONE (21:34)
[2019-10-01 21:48] LABS: ABG Base Excess -4.4 mmol/L (-2.0-3.0); ABG HCO3 21.4 mmol/L (20.0-26.0); ABG Methemoglobin 0.7 % (0.0-1.5); ABG Oxygen Saturation 94.5 % (95.0-99.0); ABG PCO2 41.8 mm Hg; ABG PH 7.327 pH Units (7.350-7.450); ABG PO2 75.1 mm Hg (80.0-90.0)
[2019-10-01] MEDS: BUDESONIDE 0.5 MG/2 ML NEBU IH SCH (23:12)
[2019-10-02] MEDS ORDERED: ENOXAPARIN 100 MG/1 ML INJ SUB-Q ONE (00:28)
[2019-10-02] MEDS ORDERED: methylPREDNISolone Sod Succinate 40 MG/1 ML INJ ONE ×2 (00:28→06:57)
[2019-10-02] MEDS: ENOXAPARIN 60 MG/0.6 ML INJ SUB-Q SCH ×2 (01:02→21:30)
[2019-10-02] MEDS: SPIRONOLACTONE 50 MG TAB PO SCH ×2 (01:02→10:17)
[2019-10-02] MEDS: methylPREDNISolone Sod Succinate 40 MG/1 ML INJ IV SCH ×2 (01:04→07:26)
[2019-10-02] MEDS: ZINC SULFATE 220 MG CAP PO SCH ×3 (01:04→21:30)
[2019-10-02] MEDS: ASCORBIC ACID 500 MG TAB PO SCH ×3 (01:05→21:30)
[2019-10-02] MEDS ORDERED: INSULIN REGULAR, HUMAN 100 UNITS/1 ML ONE (01:14)
[2019-10-02] MEDS: INSULIN LISPRO 100 UNIT/ML SUB-Q SCH ×4 (01:16→18:52)
[2019-10-02] MEDS ORDERED: INSULIN LISPRO 100 UNIT/ML SUB-Q ONE ×2 (01:17→07:10)
--- NOTE | 2019-10-02 03:13 | XRay Report ---
CHEST 1 VIEW 2:45 AM INDICATION / CLINICAL INFORMATION: Follow-up respiratory failure. COMPARISON: Yesterday. FINDINGS: SUPPORT DEVICES: The tip of the endotracheal tube is approximately 2 cm above the natasha. The nasogas tric tube has been advanced with the tip not seen but the proximal sidehole well below the gastroesop hageal junction. HEART / MEDIASTINUM: Unchanged. LUNGS / PLEURA: Moderately severe patchy parenchymal disease throughout both lungs has not changed si gnificantly. No pneumothorax. ADDITIONAL FINDINGS: No significant additional findings. IMPRESSION: 1. No significant interval change in bilateral parenchymal disease. 2. The nasogastric tube has been advanced and is now in good position. Signer Name: Alphonse Chan MD Signed: 10/02/2019 3:09 AM Workstation Name: [id number]
[2019-10-02] MEDS ORDERED: IPRATROPIUM/ALBUTEROL SULFATE 3 ML AMPUL.NEB IH ONE ×2 (03:37→08:38)
[2019-10-02] MEDS: IPRATROPIUM/ALBUTEROL SULFATE 3 ML AMPUL.NEB IH SCH ×2 (03:38→08:41)
[2019-10-02 04:28] LABS: ABG Base Excess -4.9 mmol/L (-2.0-3.0); ABG HCO3 21.3 mmol/L (20.0-26.0); ABG Methemoglobin 0.7 % (0.0-1.5); ABG Oxygen Saturation 98.3 % (95.0-99.0); ABG PCO2 43.6 mm Hg; ABG PH 7.308 pH Units (7.350-7.450); ABG PO2 129.3 mm Hg (80.0-90.0)
[2019-10-02 05:49] LABS: Hematocrit 38.4 % (30.3-42.9); Hemoglobin 12.6 gm/dl (10.1-14.3); Mean Corpuscular HGB Conc 33 % (30-34); Mean Corpuscular Volume 91 fl (79-97); Platelet Count 261 K/mm3 (140-440); Red Blood Count 4.21 M/mm3 (3.65-5.03); Red Cell Distribution Width 14.6 % (13.2-15.2)
[2019-10-02] MEDS ORDERED: ETOMIDATE 20 MG/10 ML INJ IV ONE (05:50)
[2019-10-02] MEDS ORDERED: ROCURONIUM 50 MG/5 ML INJ IV ONE (05:50)
[2019-10-02 06:42] LABS: Basophils % (Manual) 0 % (0.0-1.8); Eosinophils % (Manual) 0 % (0.0-4.3); Platelet Estimate Consistent w Auto; Total Cells Counted 100
[2019-10-02] MEDS ORDERED: fentaNYL DRIP Premix 2,000 MCG/100 ML BAG IV ONE (07:09)
[2019-10-02] MEDS: fentaNYL DRIP Premix 2,000 MCG/100 ML BAG IV SCH ×2 (07:25→12:00)
[2019-10-02] MEDS ORDERED: BUDESONIDE 0.5 MG/2 ML NEBU IH ONE (08:38)
[2019-10-02] MEDS ORDERED: ARFORMOTEROL 15 MCG/2 ML NEBU IH ONE (08:39)
[2019-10-02] MEDS: BUDESONIDE 0.5 MG/2 ML NEBU IH SCH (08:41)
[2019-10-02] MEDS: ARFORMOTEROL 15 MCG/2 ML NEBU IH SCH (08:41)
[2019-10-02] MEDS ORDERED: AZITHROMYCIN 500 MG in SODIUM CHLORIDE 0.9% 250ML 250 ML IV SCH (10:00)
[2019-10-02] MEDS: amLODIPine 10 MG TAB PO SCH (10:17)
[2019-10-02] MEDS: AZITHROMYCIN 250 MG TAB PO SCH (10:18)
[2019-10-02] MEDS: cefTRIAXone/NS 2 GM/100 ML 2 GM/100 ML BAG IV SCH (11:00)
[2019-10-02] MEDS: FAMOTIDINE 20 MG/2 ML INJ IV SCH (11:00)
[2019-10-02] MEDS: INSULIN NPH/REGULAR 70/30 INJ SUB-Q SCH ×2 (11:38→18:00)
--- NOTE | 2019-10-02 11:42 | Progress Note ---
Assessment and Plan Acute hypoxemic respiratory failure, on mechanical ventilatory support. Acute respiratory distress syndrome. COVID-19 virus infection. Bilateral pneumonia. Possible pulmonary edema. Severe sepsis. Leukocytosis. Acute kidney injury. Hyperglycemia. Lactic acidosis. Elevated serum transaminases. Oropharyngeal dysphagia - continue airborne and contact precautions - Remdesivir dosing per ID - Actemra dosing per ID rec's - covalescent plasma per ID rec's - continue Zinc and Ascorbic acid supplementation - continue systemic steroids for oxygen dependent COVID 19 infection - follow serum transaminases - Daily SAT and SBT assessment as tolerated - continue accuchecks with glycemic control per SSI (While critically ill target blood glucose of 140-180 mg/dL; avoid hypoglycemia) - sedation for target RASS 0 to -1 - continue to wean supplemental oxygen for target O2 sat's > 92% acutely - VAP bundle addressed - continue lung protective strategies - continue bronchodilators with pulmonary hygiene per RT - wean per pulmonary driven protocols otherwise - continue to avoid benzodiazepine's, reduce the possibility of delirium - continue AB's per ID rec's - prn analgesia per CPOT score - Maintenance of sleep-wake cycle, avoid delirium - continue enteral nutritional support at goal rate as tolerated - G.I. & VTE prophylaxis - PT/OT/ROM exercises - continue mobility protocols for pressure ulcer prophylaxis - Monitor hemodynamics closely - continue other care per attending / other consultants - discharge planning ongoing concurrently .... Re-evaluate in am & prn CONDITION: CRITICAL PROGNOSIS: GUARDED CODE STATUS: FULL CODE The high probability of a clinically significant, sudden or life-threatening deterioration of the [respiratory, cardiovascular & neurologic] system(s) required my full and direct attention, intervention and personal management. The aggregate critical care time was [36] minutes without overlap. Time includes spent on; [x] Data Review and interpretation [x] Patient assessment and monitoring of vital signs [x] Documentation [x] Medication orders and management Subjective Date of service: 10/02/19 Principal diagnosis: Ac. hypoxemic resp failure; ARDS; COVID-19 virus infxn; PNA; Severe sepsis Interval history: Patient is seen today for: Ac. hypoxemic resp failure; ARDS; COVID-19 virus infection; Bilateral pneumonia; Severe sepsis; FANI Seen and examined at bedside; 24hour events reviewed; nursing and respiratory care staff consulted; no adverse overnight events reported to me; resting peacefully in bed; remains on MVS; remains in isolation; denies acute chesat pain; FiOI2 still high at 70% Objective Vital Signs - 12hr 10/01/19 10/02/19 10/02/19 23:45 01:02 03:05 Pulse Rate 78 75 78 Pulse Rate [ Throughout] Respiratory 20 Rate Respiratory Rate [ Throughout] Blood Pressure 106/72 110/69 121/73 O2 Sat by Pulse 98 99 Oximetry 10/02/19 10/02/19 10/02/19 03:10 03:15 03:20 Pulse Rate 79 80 77 Pulse Rate [ Throughout] Respiratory 20 20 21 Rate Respiratory Rate [ Throughout] Blood Pressure 117/75 116/75 112/72 O2 Sat by Pulse 100 99 99 Oximetry 10/02/19 10/02/19 10/02/19 03:25 03:30 03:35 Pulse Rate 78 76 78 Pulse Rate [ Throughout] Respiratory 20 20 20 Rate Respiratory Rate [ Throughout] Blood Pressure 117/75 113/71 116/74 O2 Sat by Pulse 99 100 99 Oximetry 10/02/19 10/02/19 10/02/19 03:40 03:45 03:50 Pulse Rate 76 75 80 Pulse Rate [ Throughout] Respiratory 20 20 20 Rate Respiratory Rate [ Throughout] Blood Pressure 117/72 110/74 123/81 O2 Sat by Pulse 99 99 99 Oximetry 10/02/19 10/02/19 10/02/19 03:55 04:00 04:05 Pulse Rate 80 76 80 Pulse Rate [ Throughout] Respiratory 23 22 20 Rate Respiratory Rate [ Throughout] Blood Pressure 133/82 134/77 130/82 O2 Sat by Pulse 100 100 100 Oximetry 10/02/19 10/02/19 10/02/19 04:10 04:15 04:20 Pulse Rate 78 78 77 Pulse Rate [ Throughout] Respiratory 20 21 20 Rate Respiratory Rate [ Throughout] Blood Pressure 124/83 133/78 136/76 O2 Sat by Pulse 100 100 99 Oximetry 10/02/19 10/02/19 10/02/19 04:25 04:30 04:35 Pulse Rate 78 80 83 Pulse Rate [ Throughout] Respiratory 20 21 21 Rate Respiratory Rate [ Throughout] Blood Pressure 130/81 129/77 134/86 O2 Sat by Pulse 100 100 100 Oximetry 10/02/19 10/02/19 10/02/19 04:40 04:45 04:50 Pulse Rate 76 78 76 Pulse Rate [ Throughout] Respiratory 20 21 21 Rate Respiratory Rate [ Throughout] Blood Pressure 130/78 133/78 129/76 O2 Sat by Pulse 100 100 100 Oximetry 10/02/19 10/02/19 10/02/19 04:55 05:00 05:05 Pulse Rate 77 76 76 Pulse Rate [ Throughout] Respiratory 20 20 20 Rate Respiratory Rate [ Throughout] Blood Pressure 136/79 132/80 150/81 O2 Sat by Pulse 100 100 99 Oximetry 10/02/19 10/02/19 10/02/19 05:10 05:15 05:20 Pulse Rate 77 75 80 Pulse Rate [ Throughout] Respiratory 25 H 23 22 Rate Respiratory Rate [ Throughout] Blood Pressure 145/77 139/82 136/80 O2 Sat by Pulse 100 100 100 Oximetry 10/02/19 10/02/19 10/02/19 05:25 05:30 05:35 Pulse Rate 77 78 74 Pulse Rate [ Throughout] Respiratory 23 22 20 Rate Respiratory Rate [ Throughout] Blood Pressure 144/84 142/85 134/75 O2 Sat by Pulse 100 100 100 Oximetry 10/02/19 10/02/19 10/02/19 05:40 05:45 05:50 Pulse Rate 76 76 75 Pulse Rate [ Throughout] Respiratory 21 21 22 Rate Respiratory Rate [ Throughout] Blood Pressure 131/80 130/78 141/79 O2 Sat by Pulse 100 100 100 Oximetry 10/02/19 10/02/19 10/02/19 05:55 06:00 06:05 Pulse Rate 73 76 73 Pulse Rate [ Throughout] Respiratory 22 20 21 Rate Respiratory Rate [ Throughout] Blood Pressure 139/79 130/79 133/79 O2 Sat by Pulse 100 100 100 Oximetry 10/02/19 10/02/19 10/02/19 06:10 06:15 06:20 Pulse Rate 69 74 73 Pulse Rate [ Throughout] Respiratory 20 20 20 Rate Respiratory Rate [ Throughout] Blood Pressure 131/75 131/81 131/89 O2 Sat by Pulse 97 100 100 Oximetry 10/02/19 10/02/19 10/02/19 06:25 06:30 06:35 Pulse Rate 69 72 71 Pulse Rate [ Throughout] Respiratory 21 21 21 Rate Respiratory Rate [ Throughout] Blood Pressure 143/76 130/82 133/80 O2 Sat by Pulse 98 100 100 Oximetry 10/02/19 10/02/19 10/02/19 06:40 06:45 06:50 Pulse Rate 74 69 70 Pulse Rate [ Throughout] Respiratory 21 19 20 Rate Respiratory Rate [ Throughout] Blood Pressure 136/78 131/79 130/81 O2 Sat by Pulse 100 100 100 Oximetry 10/02/19 10/02/19 10/02/19 06:55 07:00 07:05 Pulse Rate 72 76 75 Pulse Rate [ Throughout] Respiratory 20 20 21 Rate Respiratory Rate [ Throughout] Blood Pressure 133/79 131/88 136/88 O2 Sat by Pulse 100 98 100 Oximetry 10/02/19 10/02/19 10/02/19 07:10 07:15 07:30 Pulse Rate 72 75 71 Pulse Rate [ Throughout] Respiratory 20 20 22 Rate Respiratory Rate [ Throughout] Blood Pressure 139/81 135/84 118/85 O2 Sat by Pulse 100 100 99 Oximetry 10/02/19 10/02/19 10/02/19 07:45 08:01 08:15 Pulse Rate 71 75 71 Pulse Rate [ Throughout] Respiratory 20 20 20 Rate Respiratory Rate [ Throughout] Blood Pressure 128/80 113/80 139/78 O2 Sat by Pulse 100 100 100 Oximetry 10/02/19 10/02/19 10/02/19 08:30 08:45 08:50 Pulse Rate 74 72 73 Pulse Rate [ 73 Throughout] Respiratory 20 20 Rate Respiratory 20 Rate [ Throughout] Blood Pressure 123/78 130/79 135/81 O2 Sat by Pulse 100 100 98 Oximetry 10/02/19 10/02/19 10/02/19 09:00 09:15 09:30 Pulse Rate 73 74 72 Pulse Rate [ Throughout] Respiratory 20 20 20 Rate Respiratory Rate [ Throughout] Blood Pressure 121/79 127/80 123/78 O2 Sat by Pulse 97 96 99 Oximetry 10/02/19 10/02/19 10/02/19 09:45 10:00 10:15 Pulse Rate 73 71 73 Pulse Rate [ Throughout] Respiratory 20 20 21 Rate Respiratory Rate [ Throughout] Blood Pressure 118/78 126/74 119/79 O2 Sat by Pulse 99 96 97 Oximetry 10/02/19 10:31 Pulse Rate 72 Pulse Rate [ Throughout] Respiratory 20 Rate Respiratory Rate [ Throughout] Blood Pressure 126/75 O2 Sat by Pulse 98 Oximetry Constitutional: appears uncomfortable, other (elderly looking AAF with mildly increased resp effort at rest on mvs) Eyes: non-icteric ENT: oropharynx moist, other (ETT 24 cm GLYNN) Neck: supple, no lymphadenopathy, no JVD Effort: mildly labored Ascultation: Bilateral: rales Percussion: Bilateral: not dull Cardiovascular: regular rate and rhythm Gastrointestinal: normoactive bowel sounds, soft, non-tender, non-distended Integumentary: normal Extremities: no cyanosis, no edema, pulses normal, no ischemia or petechiae Neurologic: normal mental status, non-focal exam, pupils equal and round, motor strength normal and Psychiatric: mood appropriate, affect normal CBC and BMP: 10/03/19 04:02 10/03/19 04:02 ABG, PT/INR, D-dimer: ABG ABG pH 7.308 pH Units (7.350-7.450) L 10/02/19 03:55 ABG pCO2 43.6 mm Hg 10/02/19 03:55 ABG pO2 129.3 mm Hg (80.0-90.0) H 10/02/19 03:55 ABG O2 Saturation 98.3 % (95.0-99.0) 10/02/19 03:55 PT/INR, D-dimer PT 14.5 Sec. (12.2-14.9) 10/01/19 05:36 INR 1.15 (0.87-1.13) H 10/01/19 05:36 D-Dimer 1957.06 ng/mlDDU (0-234) H 10/01/19 12:24 Abnormal lab findings: Abnormal Labs 10/01/19 10/01/19 10/01/19 05:36 05:36 05:36 WBC Seg Neuts % (Manual) Lymphocytes % (Manual) Nucleated RBC % Seg Neutrophils # Man Lymphocytes # (Manual) INR 1.15 H D-Dimer 1648.23 H ABG pH ABG pO2 ABG O2 Saturation ABG Base Excess ABG Hemoglobin Oxyhemoglobin Chloride Carbon Dioxide BUN Creatinine Glucose 424 H POC Glucose Lactic Acid Phosphorus Magnesium Ferritin 1745.0 H AST ALT Lactate Dehydrogenase 822 H C-Reactive Protein 15.10 H NT-Pro-B Natriuret Pep Albumin Coronavirus (PCR) 10/01/19 10/01/19 10/01/19 05:36 05:36 06:31 WBC 12.8 H Seg Neuts % (Manual) 93.0 H Lymphocytes % (Manual) 2.0 L Nucleated RBC % Seg Neutrophils # Man 11.9 H Lymphocytes # (Manual) 0.3 L INR D-Dimer ABG pH ABG pO2 ABG O2 Saturation ABG Base Excess ABG Hemoglobin Oxyhemoglobin Chloride Carbon Dioxide 13 L BUN 34 H Creatinine 1.4 H Glucose 413 H POC Glucose Lactic Acid 7.20 H* Phosphorus Magnesium Ferritin AST 54 H ALT 64 H Lactate Dehydrogenase C-Reactive Protein NT-Pro-B Natriuret Pep Albumin 3.4 L Coronavirus (PCR) 10/01/19 10/01/19 10/01/19 10:05 12:24 12:24 WBC Seg Neuts % (Manual) Lymphocytes % (Manual) Nucleated RBC % Seg Neutrophils # Man Lymphocytes # (Manual) INR D-Dimer 1957.06 H ABG pH ABG pO2 ABG O2 Saturation ABG Base Excess ABG Hemoglobin Oxyhemoglobin Chloride Carbon Dioxide BUN Creatinine Glucose 346 H POC Glucose 354 H Lactic Acid Phosphorus Magnesium Ferritin AST ALT Lactate Dehydrogenase 766 H C-Reactive Protein 18.60 H NT-Pro-B Natriuret Pep Albumin Coronavirus (PCR) 10/01/19 10/01/19 10/01/19 12:24 12:45 14:30 WBC Seg Neuts % (Manual) Lymphocytes % (Manual) Nucleated RBC % Seg Neutrophils # Man Lymphocytes # (Manual) INR D-Dimer ABG pH 7.263 L ABG pO2 60.7 L ABG O2 Saturation 88.2 L ABG Base Excess -6.4 L ABG Hemoglobin Oxyhemoglobin 86.6 L Chloride Carbon Dioxide BUN Creatinine Glucose POC Glucose Lactic Acid Phosphorus 4.70 H Magnesium 2.50 H Ferritin 1646.0 H AST ALT Lactate Dehydrogenase C-Reactive Protein NT-Pro-B Natriuret Pep 1525 H Albumin Coronavirus (PCR) 10/01/19 10/01/19 10/01/19 17:20 18:15 21:08 WBC Seg Neuts % (Manual) Lymphocytes % (Manual) Nucleated RBC % Seg Neutrophils # Man Lymphocytes # (Manual) INR D-Dimer ABG pH 7.289 L ABG pO2 52.1 L ABG O2 Saturation 83.2 L ABG Base Excess -4.8 L ABG Hemoglobin 10.5 L Oxyhemoglobin 81.4 L Chloride Carbon Dioxide BUN Creatinine Glucose POC Glucose 299 H 266 H Lactic Acid Phosphorus Magnesium Ferritin AST ALT Lactate Dehydrogenase C-Reactive Protein NT-Pro-B Natriuret Pep Albumin Coronavirus (PCR) 10/01/19 10/01/19 10/02/19 21:35 Unknown 01:23 WBC Seg Neuts % (Manual) Lymphocytes % (Manual) Nucleated RBC % Seg Neutrophils # Man Lymphocytes # (Manual) INR D-Dimer ABG pH 7.327 L ABG pO2 75.1 L ABG O2 Saturation 94.5 L ABG Base Excess -4.4 L ABG Hemoglobin Oxyhemoglobin 92.8 L Chloride Carbon Dioxide BUN Creatinine Glucose POC Glucose 291 H Lactic Acid Phosphorus Magnesium Ferritin AST ALT Lactate Dehydrogenase C-Reactive Protein NT-Pro-B Natriuret Pep Albumin Coronavirus (PCR) Positive A 10/02/19 10/02/19 10/02/19 03:55 05:18 05:18 WBC 17.8 H Seg Neuts % (Manual) 93.0 H Lymphocytes % (Manual) 5.0 L Nucleated RBC % 1.0 H Seg Neutrophils # Man 16.6 H Lymphocytes # (Manual) 0.9 L INR D-Dimer ABG pH 7.308 L ABG pO2 129.3 H ABG O2 Saturation ABG Base Excess -4.9 L ABG Hemoglobin 16.1 H Oxyhemoglobin Chloride 111.1 H Carbon Dioxide 19 L BUN 44 H Creatinine 2.4 H D Glucose 227 H POC Glucose Lactic Acid Phosphorus Magnesium Ferritin AST ALT Lactate Dehydrogenase C-Reactive Protein NT-Pro-B Natriuret Pep Albumin Coronavirus (PCR) 10/02/19 07:15 WBC Seg Neuts % (Manual) Lymphocytes % (Manual) Nucleated RBC % Seg Neutrophils # Man Lymphocytes # (Manual) INR D-Dimer ABG pH ABG pO2 ABG O2 Saturation ABG Base Excess ABG Hemoglobin Oxyhemoglobin Chloride Carbon Dioxide BUN Creatinine Glucose POC Glucose 196 H Lactic Acid Phosphorus Magnesium Ferritin AST ALT Lactate Dehydrogenase C-Reactive Protein NT-Pro-B Natriuret Pep Albumin Coronavirus (PCR) Chest x-ray: image reviewed (ETT in good position)
[2019-10-02] MEDS ORDERED: SIMPLE SYRUP 15 ML FEEDTUBE PRN ×2 (11:44)
[2019-10-02] MEDS ORDERED: SODIUM BICARBONATE 325 MG TAB FEEDTUBE PRN (11:44)
[2019-10-02] MEDS ORDERED: LIPASE 10,500/PROTEASE 25,000/AMYLASE 43,750 (UNITS) DR CAP FEEDTUBE PRN (11:44)
--- NOTE | 2019-10-02 12:42 | Progress Note ---
Assessment and Plan Assessment and plan: Sepsis. Continue IV antibiotics per ID. Follow-up blood cultures. Given elevated procalcitonin level we will continue with IV antibiotics Bilateral pneumonia. Etiology secondary COVID-19. Continue to follow up serial chest x-ray. COVID 19 infection. Actemra x1 and remdesivir. Continue to trend inflammatory markers. Consider convalescent plasma therapy per ID. COVID coagulopathy. Continue with full anticoagulation. Acute hypoxic respiratory failure. Etiology secondary to above. Continue on mechanical ventilation per pulmonary recommendations. Transaminitis. Etiology secondary to sepsis/COVID. Continue to trend LFTs. The high probability of a clinically significant, sudden or life threatening deterioration of the [respiratory] system(s) required my full and direct attention, intervention and personal management. The aggregate critical care time was [32] minutes. This time is in addition to time spent performing reported procedures but includes the following: [x] Data Review and interpretation [x] Patient assessment and monitoring of vital signs [x] Documentation [x] Medication orders and management History Interval history: The patient is a 64-year-old female who came into the emergency room with complaints of shortness of breath and cough. She has a history of diabetes and hypertension. Due to significant hypoxia, she was intubated and placed on mechanical ventilation. COVID-19 test is positive. Additionally, her labs show ferritin 1646, procalcitonin 1.73, LDH 766, CRP 18.6, mild transaminitis, d- dimer 1957. Hospitalist Physical - Constitutional Vitals: Temp Pulse Resp BP Pulse Ox 97.5 F L 72 20 126/75 98 10/02/19 12:00 10/02/19 10:31 10/02/19 10:31 10/02/19 10:31 10/02/19 10:31 General appearance: Present: no acute distress, well-nourished - EENT Eyes: Present: PERRL, EOM intact ENT: hearing intact, clear oral mucosa, dentition normal - Neck Neck: Present: supple, normal ROM - Respiratory Respiratory effort: normal Respiratory: bilateral: CTA - Cardiovascular Rhythm: regular Heart Sounds: Present: S1 & S2. Absent: gallop, rub - Extremities Extremities: no ischemia, No edema, Full ROM - Abdominal General gastrointestinal: soft, non-tender, non-distended, normal bowel sounds - Integumentary Integumentary: Present: clear, warm, dry - Neurologic Neurologic: CNII-XII intact, moves all extremities HEART Score - HEART Score Troponin: Troponin T 0.018 ng/mL (0.00-0.029) 10/01/19 05:36 Results - Labs CBC & Chem 7: 10/02/19 05:18 10/02/19 05:18 Labs: Laboratory Last Values WBC 17.8 K/mm3 (4.5-11.0) H 10/02/19 05:18 RBC 4.21 M/mm3 (3.65-5.03) 10/02/19 05:18 Hgb 12.6 gm/dl (10.1-14.3) 10/02/19 05:18 Hct 38.4 % (30.3-42.9) 10/02/19 05:18 MCV 91 fl (79-97) 10/02/19 05:18 MCH 30 pg (28-32) 10/02/19 05:18 MCHC 33 % (30-34) 10/02/19 05:18 RDW 14.6 % (13.2-15.2) 10/02/19 05:18 Plt Count 261 K/mm3 (140-440) 10/02/19 05:18 Lymph % (Auto) Aircraft Engine [employer]ic Supervisor 10/01/19 06:31 Sabine % (Auto) Aircraft Engine Mechanic Supervisor 10/01/19 06:31 Eos % (Auto) Aircraft Engine Mechanic Supervisor 10/01/19 06:31 Baso % (Auto) Aircraft Engine Mechanic Supervisor 10/01/19 06:31 Lymph # Aircraft Engine Mechanic Supervisor 10/01/19 06:31 Sabine # Aircraft Engine Mechanic Supervisor 10/01/19 06:31 Eos # Aircraft Engine Mechanic Supervisor 10/01/19 06:31 Baso # Aircraft Engine Mechanic Supervisor 10/01/19 06:31 Add Manual Diff Complete 10/02/19 05:18 Total Counted 100 10/02/19 05:18 Seg Neutrophils % Aircraft Engine Mechanic Supervisor 10/02/19 05:18 Seg Neuts % (Manual) 93.0 % (40.0-70.0) H 10/02/19 05:18 Band Neutrophils % 0 % 10/02/19 05:18 Lymphocytes % (Manual) 5.0 % (13.4-35.0) L 10/02/19 05:18 Reactive Lymphs % (Man) 0 % 10/02/19 05:18 Monocytes % (Manual) 2.0 % (0.0-7.3) 10/02/19 05:18 Eosinophils % (Manual) 0 % (0.0-4.3) 10/02/19 05:18 Basophils % (Manual) 0 % (0.0-1.8) 10/02/19 05:18 Metamyelocytes % 0 % 10/02/19 05:18 Myelocytes % 0 % 10/02/19 05:18 Promyelocytes % 0 % 10/02/19 05:18 Blast Cells % 0 % 10/02/19 05:18 Nucleated RBC % 1.0 % (0.0-0.9) H 10/02/19 05:18 Seg Neutrophils # Aircraft Engine Mechanic Supervisor 10/01/19 06:31 Seg Neutrophils # Man 16.6 K/mm3 (1.8-7.7) H 10/02/19 05:18 Band Neutrophils # 0.0 K/mm3 10/02/19 05:18 Lymphocytes # (Manual) 0.9 K/mm3 (1.2-5.4) L 10/02/19 05:18 Abs React Lymphs (Man) 0.0 K/mm3 10/02/19 05:18 Monocytes # (Manual) 0.4 K/mm3 (0.0-0.8) 10/02/19 05:18 Eosinophils # (Manual) 0.0 K/mm3 (0.0-0.4) 10/02/19 05:18 Basophils # (Manual) 0.0 K/mm3 (0.0-0.1) 10/02/19 05:18 Metamyelocytes # 0.0 K/mm3 10/02/19 05:18 Myelocytes # 0.0 K/mm3 10/02/19 05:18 Promyelocytes # 0.0 K/mm3 10/02/19 05:18 Blast Cells # 0.0 K/mm3 10/02/19 05:18 WBC Morphology Not Reportable 10/02/19 05:18 Hypersegmented Neuts Not Reportable 10/02/19 05:18 Hyposegmented Neuts Not Reportable 10/02/19 05:18 Hypogranular Neuts Not Reportable 10/02/19 05:18 Smudge Cells Not Reportable 10/02/19 05:18 Toxic Granulation Not Reportable 10/02/19 05:18 Toxic Vacuolation Not Reportable 10/02/19 05:18 Dohle Bodies Not Reportable 10/02/19 05:18 Pelger-Huet Anomaly Not Reportable 10/02/19 05:18 Dona Rods Not Reportable 10/02/19 05:18 Platelet Estimate Consistent w auto 10/02/19 05:18 Clumped Platelets Not Reportable 10/02/19 05:18 Plt Clumps, EDTA Not Reportable 10/02/19 05:18 Large Platelets Not Reportable 10/02/19 05:18 Giant Platelets Not Reportable 10/02/19 05:18 Platelet Satelliting Not Reportable 10/02/19 05:18 Plt Morphology Comment Not Reportable 10/02/19 05:18 RBC Morphology Not Reportable 10/02/19 05:18 Dimorphic RBCs Not Reportable 10/02/19 05:18 Polychromasia Not Reportable 10/02/19 05:18 Hypochromasia Not Reportable 10/02/19 05:18 Poikilocytosis Not Reportable 10/02/19 05:18 Anisocytosis Not Reportable 10/02/19 05:18 Microcytosis Not Reportable 10/02/19 05:18 Macrocytosis Not Reportable 10/02/19 05:18 Spherocytes Not Reportable 10/02/19 05:18 Pappenheimer Bodies Not Reportable 10/02/19 05:18 Sickle Cells Not Reportable 10/02/19 05:18 Target Cells Not Reportable 10/02/19 05:18 Tear Drop Cells Not Reportable 10/02/19 05:18 Ovalocytes Not Reportable 10/02/19 05:18 Helmet Cells Not Reportable 10/02/19 05:18 Madden-[place] Bodies Not Reportable 10/02/19 05:18 [place] Rings Not Reportable 10/02/19 05:18 Galina Cells Not Reportable 10/02/19 05:18 Bite Cells Not Reportable 10/02/19 05:18 Crenated Cell Not Reportable 10/02/19 05:18 Elliptocytes Not Reportable 10/02/19 05:18 Acanthocytes (Spur) Not Reportable 10/02/19 05:18 Rouleaux Not Reportable 10/02/19 05:18 Hemoglobin C Crystals Not Reportable 10/02/19 05:18 Schistocytes Not Reportable 10/02/19 05:18 Malaria parasites Not Reportable 10/02/19 05:18 Cornelio Bodies Not Reportable 10/02/19 05:18 Hem Pathologist Commnt No 10/02/19 05:18 PT 14.5 Sec. (12.2-14.9) 10/01/19 05:36 INR 1.15 (0.87-1.13) H 10/01/19 05:36 APTT 28.6 Sec. (24.2-36.6) 10/01/19 05:36 D-Dimer 1957.06 ng/mlDDU (0-234) H 10/01/19 12:24 ABG pH 7.308 pH Units (7.350-7.450) L 10/02/19 03:55 ABG pCO2 43.6 mm Hg 10/02/19 03:55 ABG pO2 129.3 mm Hg (80.0-90.0) H 10/02/19 03:55 ABG HCO3 21.3 mmol/L (20.0-26.0) 10/02/19 03:55 ABG O2 Saturation 98.3 % (95.0-99.0) 10/02/19 03:55 ABG O2 Content 22.1 (0.0-44) 10/02/19 03:55 ABG Base Excess -4.9 mmol/L (-2.0-3.0) L 10/02/19 03:55 ABG Hemoglobin 16.1 gm/dl (12.0-16.0) H 10/02/19 03:55 ABG Carboxyhemoglobin 1.0 % (0.0-5.0) 10/02/19 03:55 ABG Methemoglobin 0.7 % (0.0-1.5) 10/02/19 03:55 Oxyhemoglobin 96.7 % (95.0-99.0) 10/02/19 03:55 FiO2 100 % 10/02/19 03:55 Sodium 144 mmol/L (137-145) 10/02/19 05:18 Potassium 4.4 mmol/L (3.6-5.0) 10/02/19 05:18 Chloride 111.1 mmol/L (98-107) H 10/02/19 05:18 Carbon Dioxide 19 mmol/L (22-30) L 10/02/19 05:18 Anion Gap 18 mmol/L 10/02/19 05:18 BUN 44 mg/dL (7-17) H 10/02/19 05:18 Creatinine 2.4 mg/dL (0.7-1.2) H D 10/02/19 05:18 Estimated GFR 25 ml/min 10/02/19 05:18 BUN/Creatinine Ratio 18 % 10/02/19 05:18 Glucose 227 mg/dL (65-100) H 10/02/19 05:18 POC Glucose 100 (70-105) 10/02/19 11:50 Ketones Quantitative Negative (Negative) 10/01/19 06:31 Lactic Acid 1.80 mmol/L (0.7-2.0) 10/02/19 08:04 Calcium 9.0 mg/dL (8.4-10.2) 10/02/19 05:18 Phosphorus 4.70 mg/dL (2.5-4.5) H 10/01/19 12:45 Magnesium 2.50 mg/dL (1.7-2.3) H 10/01/19 12:45 Ferritin 1646.0 ng/mL (13.0-400.0) H 10/01/19 12:24 Total Bilirubin 0.30 mg/dL (0.1-1.2) 10/01/19 05:36 Direct Bilirubin < 0.2 mg/dL (0-0.2) 10/01/19 05:36 Indirect Bilirubin 0.1 mg/dL 10/01/19 05:36 AST 54 units/L (5-40) H 10/01/19 05:36 ALT 64 units/L (7-56) H 10/01/19 05:36 Alkaline Phosphatase 94 units/L (35-129) 10/01/19 05:36 Lactate Dehydrogenase 766 units/L (91-180) H 10/01/19 12:24 Troponin T 0.018 ng/mL (0.00-0.029) 10/01/19 05:36 C-Reactive Protein 18.60 mg/dL (0.00-1.30) H 10/01/19 12:24 NT-Pro-B Natriuret Pep 1525 pg/mL (0-900) H 10/01/19 12:45 Total Protein 6.6 g/dL (6.3-8.2) 10/01/19 05:36 Albumin 3.4 g/dL (3.9-5) L 10/01/19 05:36 Albumin/Globulin Ratio 1.1 % 10/01/19 05:36 Procalcitonin 1.73 ng/mL (<0.15) 10/01/19 12:24 Coronavirus (PCR) Positive (Negative) A 10/01/19 Unknown Microbiology: Microbiology 10/01/19 05:36 Peripheral/Venous Blood Culture - Preliminary 10/01/19 05:38 Peripheral/Venous Blood Culture - Preliminary NO GROWTH AFTER 24 HOURS Alexis/IV: Voiding Method Indwelling Catheter IV Catheter Type [Left Forearm INT / Saline Lock ] IV Catheter Type [Right Hand] Peripheral IV IV Catheter Type [Left Foot] INT / Saline Lock IV Catheter Type [Right Peripheral IV Forearm] Active Medications - Current Medications Current Medications: Generic Name Dose Route Start Last Admin Trade Name Freq PRN Reason Stop Dose Admin Acetaminophen 650 mg 10/01/19 09:10 Tylenol PO Q6H PRN Pain MILD(1-3)/Fever >100.5/PALOMARES Albuterol 2.5 mg 10/01/19 09:10 Proventil IH Q3HRT PRN Shortness Of Breath Albuterol/Ipratropium 1 ampul 10/01/19 14:00 10/02/19 08:41 Duoneb *Not For Prn Use* IH 1 ampul Q6HRT CLARKE Administration Amlodipine Besylate 10 mg 10/01/19 10:00 10/02/19 10:17 Amlodipine PO Not Given QDAY CLARKE Lipase/Protease/Amylase 1 each 10/02/19 11:44 Pancrejoaquin Fleming 10,500 Unit FEEDTUBE PRN PRN For Clogged Feeding Tube Arformoterol Tartrate 15 mcg 10/01/19 09:30 10/02/19 08:41 Brovana Nebu IH 15 mcg Q12HRT CLARKE Administration Ascorbic Acid 500 mg 10/01/19 16:00 10/02/19 10:17 Vitamin C PO Not Given BID CLARKE Azithromycin 500 mg 10/02/19 10:00 10/02/19 10:18 Zithromax PO Not Given QDAY CLARKE Budesonide 0.5 mg 10/01/19 20:00 10/02/19 08:41 Pulmicort IH 0.5 mg Q12HRT CLARKE Administration Dextrose 50 ml 10/01/19 09:10 D50w (25gm) Syringe IV Q30MIN PRN Hypoglycemia Protocol Enoxaparin Sodium 60 mg 10/02/19 22:00 Enoxaparin SUB-Q Q24H CLARKE Famotidine 20 mg 10/02/19 10:00 10/02/19 11:00 Pepcid IV 20 mg DAILY CLARKE Administration Fentanyl 50 mcg 10/01/19 15:03 Sublimaze IV Q10MIN PRN ANALGESIA Hydralazine HCl 10 mg 10/01/19 09:20 Apresoline IV Q4HR PRN Hypertension Hydrophilic Ointment 1 applic 10/01/19 13:33 Vaseline Lip Therapy TP Q2HR PRN Dry Lips Ceftriaxone Sodium 2 gm in 100 mls @ 200 mls/hr 10/02/19 10:00 10/02/19 11:00 Rocephin/Ns 2 Gm/100 Ml IV 200 mls/hr Q24HR CLARKE Administration Protocol Propofol 1,000 mg in 100 mls @ 1.905 mls/hr 10/01/19 14:00 10/01/19 18:41 Diprivan 10 Mg/Ml IV 0 mcg/kg/min TITR CLARKE 0 mls/hr Titration Protocol 5 MCG/KG/MIN Fentanyl Citrate 2,000 mcg in 100 mls @ 3.175 mls/hr 10/01/19 16:00 10/02/19 12:00 Fentanyl Drip Premix IV 2 mcg/kg/hr TITR CLARKE 6.35 mls/hr Administration Protocol 1 MCG/KG/HR Nicardipine HCl 50 mg/ Sodium 250 mls @ 25 mls/hr 10/01/19 16:00 10/01/19 16:00 Chloride IV 0 mg/hr TITR CLARKE 0 mls/hr Titration Protocol 5 MG/HR Insulin Human Isoph/Insulin Regular 30 unit 10/01/19 10:00 10/02/19 11:38 Humulin 70/30 SUB-Q Not Given BIDDIAB [facility] Insulin Human Lispro 0 unit 10/01/19 12:00 10/02/19 12:01 Humalog SUB-Q Not Given Q6HR CLARKE Protocol Methylprednisolone Sodium Succinate 40 mg 10/01/19 10:00 10/02/19 07:26 Solu-Medrol IV 40 mg Q8HR CLARKE Administration Metoclopramide HCl 10 mg 10/01/19 09:10 Reglan IV Q6H PRN Nausea And Vomiting Multi-Ingred Cream/Lotion/Oil/Oint 1 applic 10/01/19 13:33 Artificial Tears Ophth Oint OU Q4HR PRN Dry Eye(s) Naloxone HCl 0.1 mg 10/01/19 09:10 Naloxone IV Q2MIN PRN Res Rate </= 8 or 02 SAT < 92% Simple Syrup 15 ml 10/02/19 11:44 Simple Syrup FEEDTUBE PRN PRN Hypoglycemia Simple Syrup 30 ml 10/02/19 11:44 Simple Syrup FEEDTUBE PRN PRN Hypoglycemia Sodium Bicarbonate 325 mg 10/02/19 11:44 Sodium Bicarbonate FEEDTUBE PRN PRN For Clogged Feeding Tube Sodium Chloride 10 ml 10/01/19 10:00 10/02/19 10:17 Sodium Chloride Flush Syringe 10 Ml IV 10 ml BID CLARKE Administration Sodium Chloride 10 ml 10/01/19 09:10 Sodium Chloride Flush Syringe 10 Ml IV PRN PRN LINE FLUSH Spironolactone 50 mg 10/01/19 10:00 10/02/19 10:17 Aldactone PO Not Given BID CLARKE Zinc Sulfate 220 mg 10/01/19 16:00 10/02/19 10:18 Zinc Sulfate PO Not Given BID CLARKE Nutrition/Malnutrition Assess - Dietary Evaluation Nutrition/Malnutrition Findings: Nutrition Notes Start: 10/01/19 14:13 Freq: Status: Active Protocol: Document 10/02/19 11:46 LP (Rec: 10/02/19 11:48 LP [id number]) Nutrition Notes Need for Assessment generated from: MD Order Initial or Follow up Brief Note Current Diagnosis Acute Kidney Injury,Diabetes, Hypertension Other Pertinent Diagnosis COVID-19 (+) Current Diet NPO Subjective/Other Information Consult for TF. Pt continues on vent. Nutrition Intervention Change Diet Order: TF Nutrition Support: Vital 1.2 at 45ml/hr Flush with 100ml q4h Kcal 1,296 Protein (gm) 81 Fluid (mL) 870 Goal #1 Meet at least 80% of kcal and protein needs Anticipated Discharge Needs: Unable to determine at this time Follow-Up By: 10/04/19 Additional Comments Follow for TF start/tolerance, renal labs
[2019-10-02] MEDS: methylPREDNISolone Sod Succinate 125 MG/2 ML INJ IV SCH ×2 (13:45→21:30)
--- NOTE | 2019-10-02 13:54 | Progress Note ---
Assessment and Plan Cultures: 10/01/2019 coronavirus PCR: Positive 10/01/2019 blood culture: GPC 10/01/2019 tracheal aspirate culture: No growth A/P: 64-year-old female with diabetes, hypertension admitted with: #Bilateral pneumonia: Secondary to COVID-19. Inflammatory markers are significantly elevated. s/p Actemra on 10/01/2019. Continue steroids. Creatinine increasing, not a candidate for Remdesivir #Acute hypoxic respiratory failure: On mechanical ventilation. #Mild transaminitis: Likely secondary to COVID-19 #GPC bacteremia may be a contaminant. Recs: Continue steroids Creatinine increasing, not a candidate for Remdesivir continue Ceftriaxone, azithromycin for now GPC bacteremia may be a contaminant. Hold off on IV Vancomycin for now especially due to rising creatinine trend ferritin, d-dimer, CRP every 2 days for risk stratification and to assess disease progression Agree with full anticoagulation Consider enrollment for convalescent plasma Given procalcitonin elevation, continue empiric antibiotics for now Ashly Booker MD, FACP [facility] ([facility] C: [phone] O: [phone] F: [phone] Subjective Date of service: 10/02/19 Interval history: No fever. Remains intubated, sedated, on the vent. Objective - Exam Narrative Exam: Physical Exam (reviewed in chart due to PPE conservation) Constitutional: intubated, sedated, on the vent Head, Ears, Nose: normocephalic, atraumatic Eyes: limited due to PPE conservation strategy Neck: intubated Oral: intubated Cardiovascular: limited due to PPE conservation strategy Respiratory: limited due to PPE conservation strategy GI: limited due to PPE conservation strategy Musculoskeletal: limited due to PPE conservation strategy Skin: limited due to PPE conservation strategy Hem/Lymphatic: limited due to PPE conservation strategy Psych: no agitation Neurological: sedated, intubated, on the vent, exam limited - Constitutional Vitals: Vital Signs Temp Pulse Resp BP Pulse Ox 97.5 F L 72 20 126/75 98 10/02/19 12:00 10/02/19 10:31 10/02/19 10:31 10/02/19 10:31 10/02/19 10:31 Temperature -Last 24 Hours Temperature 97.5 F Temperature 98.1 F - Labs CBC & Chem 7: 10/02/19 05:18 10/02/19 05:18 Labs: Abnormal lab results 10/01/19 10/01/19 10/01/19 Range/Units 12:45 14:30 17:20 WBC (4.5-11.0) K/mm3 Seg Neuts % (Manual) (40.0-70.0) % Lymphocytes % (Manual) (13.4-35.0) % Nucleated RBC % (0.0-0.9) % Seg Neutrophils # Man (1.8-7.7) K/mm3 Lymphocytes # (Manual) (1.2-5.4) K/mm3 ABG pH 7.263 L 7.289 L (7.350-7.450) pH Units ABG pO2 60.7 L 52.1 L (80.0-90.0) mm Hg ABG O2 Saturation 88.2 L 83.2 L (95.0-99.0) % ABG Base Excess -6.4 L -4.8 L (-2.0-3.0) mmol/L ABG Hemoglobin 10.5 L (12.0-16.0) gm/dl Oxyhemoglobin 86.6 L 81.4 L (95.0-99.0) % Chloride (98-107) mmol/L Carbon Dioxide (22-30) mmol/L BUN (7-17) mg/dL Creatinine (0.7-1.2) mg/dL Glucose (65-100) mg/dL POC Glucose (70-105) Phosphorus 4.70 H (2.5-4.5) mg/dL Magnesium 2.50 H (1.7-2.3) mg/dL NT-Pro-B Natriuret Pep 1525 H (0-900) pg/mL Coronavirus (PCR) (Negative) 10/01/19 10/01/19 10/01/19 Range/Units 18:15 21:08 21:35 WBC (4.5-11.0) K/mm3 Seg Neuts % (Manual) (40.0-70.0) % Lymphocytes % (Manual) (13.4-35.0) % Nucleated RBC % (0.0-0.9) % Seg Neutrophils # Man (1.8-7.7) K/mm3 Lymphocytes # (Manual) (1.2-5.4) K/mm3 ABG pH 7.327 L (7.350-7.450) pH Units ABG pO2 75.1 L (80.0-90.0) mm Hg ABG O2 Saturation 94.5 L (95.0-99.0) % ABG Base Excess -4.4 L (-2.0-3.0) mmol/L ABG Hemoglobin (12.0-16.0) gm/dl Oxyhemoglobin 92.8 L (95.0-99.0) % Chloride (98-107) mmol/L Carbon Dioxide (22-30) mmol/L BUN (7-17) mg/dL Creatinine (0.7-1.2) mg/dL Glucose (65-100) mg/dL POC Glucose 299 H 266 H (70-105) Phosphorus (2.5-4.5) mg/dL Magnesium (1.7-2.3) mg/dL NT-Pro-B Natriuret Pep (0-900) pg/mL Coronavirus (PCR) (Negative) 10/01/19 10/02/19 10/02/19 Range/Units Unknown 01:23 03:55 WBC (4.5-11.0) K/mm3 Seg Neuts % (Manual) (40.0-70.0) % Lymphocytes % (Manual) (13.4-35.0) % Nucleated RBC % (0.0-0.9) % Seg Neutrophils # Man (1.8-7.7) K/mm3 Lymphocytes # (Manual) (1.2-5.4) K/mm3 ABG pH 7.308 L (7.350-7.450) pH Units ABG pO2 129.3 H (80.0-90.0) mm Hg ABG O2 Saturation (95.0-99.0) % ABG Base Excess -4.9 L (-2.0-3.0) mmol/L ABG Hemoglobin 16.1 H (12.0-16.0) gm/dl Oxyhemoglobin (95.0-99.0) % Chloride (98-107) mmol/L Carbon Dioxide (22-30) mmol/L BUN (7-17) mg/dL Creatinine (0.7-1.2) mg/dL Glucose (65-100) mg/dL POC Glucose 291 H (70-105) Phosphorus (2.5-4.5) mg/dL Magnesium (1.7-2.3) mg/dL NT-Pro-B Natriuret Pep (0-900) pg/mL Coronavirus (PCR) Positive A (Negative) 10/02/19 10/02/19 10/02/19 Range/Units 05:18 05:18 07:15 WBC 17.8 H (4.5-11.0) K/mm3 Seg Neuts % (Manual) 93.0 H (40.0-70.0) % Lymphocytes % (Manual) 5.0 L (13.4-35.0) % Nucleated RBC % 1.0 H (0.0-0.9) % Seg Neutrophils # Man 16.6 H (1.8-7.7) K/mm3 Lymphocytes # (Manual) 0.9 L (1.2-5.4) K/mm3 ABG pH (7.350-7.450) pH Units ABG pO2 (80.0-90.0) mm Hg ABG O2 Saturation (95.0-99.0) % ABG Base Excess (-2.0-3.0) mmol/L ABG Hemoglobin (12.0-16.0) gm/dl Oxyhemoglobin (95.0-99.0) % Chloride 111.1 H (98-107) mmol/L Carbon Dioxide 19 L (22-30) mmol/L BUN 44 H (7-17) mg/dL Creatinine 2.4 H D (0.7-1.2) mg/dL Glucose 227 H (65-100) mg/dL POC Glucose 196 H (70-105) Phosphorus (2.5-4.5) mg/dL Magnesium (1.7-2.3) mg/dL NT-Pro-B Natriuret Pep (0-900) pg/mL Coronavirus (PCR) (Negative)
[2019-10-02 19:52] LABS: Creatinine,Urine 336.4 mg/dL (0.1-20.0)
[2019-10-03] MEDS: INSULIN LISPRO 100 UNIT/ML SUB-Q SCH ×4 (00:45→18:56)
[2019-10-03] MEDS: fentaNYL DRIP Premix 2,000 MCG/100 ML BAG IV SCH ×2 (03:50→18:00)
[2019-10-03 04:17] LABS: Hematocrit 36.6 % (30.3-42.9); Mean Corpuscular HGB Conc 33 % (30-34); Mean Corpuscular Volume 91 fl (79-97); Platelet Count 296 K/mm3 (140-440); Red Blood Count 4.02 M/mm3 (3.65-5.03); Red Cell Distribution Width 14.8 % (13.2-15.2)
[2019-10-03 04:36] LABS: Calcium 9.1 mg/dL (8.4-10.2)
--- NOTE | 2019-10-03 04:53 | XRay Report ---
CHEST 1 VIEW 2:38 AM INDICATION / CLINICAL INFORMATION: Follow-up respiratory failure. COMPARISON: Yesterday. FINDINGS: SUPPORT DEVICES: The positions of the endotracheal and nasogastric tubes have not changed. HEART / MEDIASTINUM: Unchanged. LUNGS / PLEURA: There is moderate patchy parenchymal disease throughout both lungs, moderately improv ed. No significant pleural effusion. No new abnormality. No pneumothorax. ADDITIONAL FINDINGS: No significant additional findings. IMPRESSION: Significant improvement in bilateral parenchymal disease since yesterday. Signer Name: Alphonse Chan MD Signed: 10/03/2019 4:48 AM Workstation Name: [employer]
[2019-10-03 05:33] LABS: Band Neutrophils # (Manual) 0.2 K/mm3; Basophils % (Manual) 0 % (0.0-1.8); Eosinophils % (Manual) 0 % (0.0-4.3); Total Cells Counted 100
[2019-10-03 05:34] LABS: Platelet Estimate Consistent w Auto; RBC Morphology Normal
[2019-10-03 05:46] LABS: ABG Base Excess -3.8 mmol/L (-2.0-3.0); ABG HCO3 21.8 mmol/L (20.0-26.0); ABG Methemoglobin 0.5 % (0.0-1.5); ABG PCO2 41.7 mm Hg; ABG PH 7.336 pH Units (7.350-7.450); ABG PO2 70.1 mm Hg (80.0-90.0)
[2019-10-03] MEDS: methylPREDNISolone Sod Succinate 125 MG/2 ML INJ IV SCH (06:58)
[2019-10-03] MEDS: INSULIN NPH/REGULAR 70/30 INJ SUB-Q SCH ×2 (08:25→16:09)
[2019-10-03] MEDS: AZITHROMYCIN 250 MG TAB PO SCH (09:24)
[2019-10-03] MEDS: ZINC SULFATE 220 MG CAP PO SCH ×2 (09:24→21:50)
[2019-10-03] MEDS: ASCORBIC ACID 500 MG TAB PO SCH ×2 (09:24→21:50)
[2019-10-03] MEDS: FAMOTIDINE 20 MG/2 ML INJ IV SCH (09:25)
[2019-10-03] MEDS: cefTRIAXone/NS 2 GM/100 ML 2 GM/100 ML BAG IV SCH (09:25)
[2019-10-03] MEDS: amLODIPine 10 MG TAB PO SCH (10:10)
[2019-10-03] MEDS: hydrALAZINE 20 MG/1 ML INJ IV PRN ×2 (10:56→16:10)
[2019-10-03] MEDS ORDERED: ROCURONIUM 50 MG/5 ML INJ IV ONE (12:47)
--- NOTE | 2019-10-03 13:14 | Progress Note ---
Assessment and Plan Assessment and plan: Sepsis. Continue IV antibiotics per ID. Follow-up blood cultures. Given elevated procalcitonin level we will continue with IV antibiotics Bilateral pneumonia. Etiology secondary COVID-19. Continue to follow up serial chest x-ray. COVID 19 infection. Actemra x1 and remdesivir. Continue to trend inflammatory markers. Consider convalescent plasma therapy per ID. COVID coagulopathy. Continue with full anticoagulation. Acute hypoxic respiratory failure. Etiology secondary to above. Continue on mechanical ventilation per pulmonary recommendations. Transaminitis. Etiology secondary to sepsis/COVID. Continue to trend LFTs. 10/03/2019. Patient's daughter Evelio Plascencia has consented to convalescent plasma therapy. Await type and screen for patient enrollment. Continue mechanical ventilation per pulmonary. Patient currently AC mode ventilation rate of 20, tidal volume 450 FiO2 70% and PEEP of 12. Continue Solu-Medrol 40 mg IV daily. Wean sedation of propofol and fentanyl as needed. The high probability of a clinically significant, sudden or life threatening deterioration of the [respiratory] system(s) required my full and direct attention, intervention and personal management. The aggregate critical care time was [50] minutes. This time is in addition to time spent performing reported procedures but includes the following: [x] Data Review and interpretation [x] Patient assessment and monitoring of vital signs [x] Documentation [x] Medication orders and management History Interval history: The patient is a 64-year-old female who came into the emergency room with complaints of shortness of breath and cough. She has a history of diabetes and hypertension. Due to significant hypoxia, she was intubated and placed on mechanical ventilation. COVID-19 test is positive. Additionally, her labs show ferritin 1646, procalcitonin 1.73, LDH 766, CRP 18.6, mild transaminitis, d- dimer 1957. Hospitalist Physical - Constitutional Vitals: Temp Pulse Resp BP Pulse Ox 97.9 F 75 22 175/95 87 10/03/19 08:00 10/03/19 11:59 10/03/19 10:30 10/03/19 11:59 10/03/19 11:59 General appearance: Present: no acute distress, well-nourished HEART Score - HEART Score Troponin: Troponin T 0.018 ng/mL (0.00-0.029) 10/01/19 05:36 Results - Labs CBC & Chem 7: 10/03/19 04:02 10/03/19 04:02 Labs: Laboratory Last Values WBC 17.2 K/mm3 (4.5-11.0) H 10/03/19 04:02 RBC 4.02 M/mm3 (3.65-5.03) 10/03/19 04:02 Hgb 12.0 gm/dl (10.1-14.3) 10/03/19 04:02 Hct 36.6 % (30.3-42.9) 10/03/19 04:02 MCV 91 fl (79-97) 10/03/19 04:02 MCH 30 pg (28-32) 10/03/19 04:02 MCHC 33 % (30-34) 10/03/19 04:02 RDW 14.8 % (13.2-15.2) 10/03/19 04:02 Plt Count 296 K/mm3 (140-440) 10/03/19 04:02 Lymph % (Auto) Teaching Young 10/01/19 06:31 [place] % (Auto) Teaching Young 10/01/19 06:31 Eos % (Auto) Teaching Young 10/01/19 06:31 Baso % (Auto) Teaching Young 10/01/19 06:31 Lymph # Teaching Young 10/01/19 06:31 [place] # Teaching Young 10/01/19 06:31 Eos # Teaching Young 10/01/19 06:31 Baso # Teaching Young 10/01/19 06:31 Add Manual Diff Complete 10/03/19 04:02 Total Counted 100 10/03/19 04:02 Seg Neutrophils % Teaching Young 10/03/19 04:02 Seg Neuts % (Manual) 95.0 % (40.0-70.0) H 10/03/19 04:02 Band Neutrophils % 1.0 % 10/03/19 04:02 Lymphocytes % (Manual) 3.0 % (13.4-35.0) L 10/03/19 04:02 Reactive Lymphs % (Man) 0 % 10/03/19 04:02 Monocytes % (Manual) 1.0 % (0.0-7.3) 10/03/19 04:02 Eosinophils % (Manual) 0 % (0.0-4.3) 10/03/19 04:02 Basophils % (Manual) 0 % (0.0-1.8) 10/03/19 04:02 Metamyelocytes % 0 % 10/03/19 04:02 Myelocytes % 0 % 10/03/19 04:02 Promyelocytes % 0 % 10/03/19 04:02 Blast Cells % 0 % 10/03/19 04:02 Nucleated RBC % 2.0 % (0.0-0.9) H 10/03/19 04:02 Seg Neutrophils # Teaching Young 10/01/19 06:31 Seg Neutrophils # Man 16.3 K/mm3 (1.8-7.7) H 10/03/19 04:02 Band Neutrophils # 0.2 K/mm3 10/03/19 04:02 Lymphocytes # (Manual) 0.5 K/mm3 (1.2-5.4) L 10/03/19 04:02 Abs React Lymphs (Man) 0.0 K/mm3 10/03/19 04:02 Monocytes # (Manual) 0.2 K/mm3 (0.0-0.8) 10/03/19 04:02 Eosinophils # (Manual) 0.0 K/mm3 (0.0-0.4) 10/03/19 04:02 Basophils # (Manual) 0.0 K/mm3 (0.0-0.1) 10/03/19 04:02 Metamyelocytes # 0.0 K/mm3 10/03/19 04:02 Myelocytes # 0.0 K/mm3 10/03/19 04:02 Promyelocytes # 0.0 K/mm3 10/03/19 04:02 Blast Cells # 0.0 K/mm3 10/03/19 04:02 WBC Morphology Not Reportable 10/03/19 04:02 Hypersegmented Neuts Not Reportable 10/03/19 04:02 Hyposegmented Neuts Not Reportable 10/03/19 04:02 Hypogranular Neuts Not Reportable 10/03/19 04:02 Smudge Cells Not Reportable 10/03/19 04:02 Toxic Granulation Not Reportable 10/03/19 04:02 Toxic Vacuolation Not Reportable 10/03/19 04:02 Dohle Bodies Not Reportable 10/03/19 04:02 Pelger-Huet Anomaly Not Reportable 10/03/19 04:02 Dona Rods Not Reportable 10/03/19 04:02 Platelet Estimate Consistent w auto 10/03/19 04:02 Clumped Platelets Not Reportable 10/03/19 04:02 Plt Clumps, EDTA Not Reportable 10/03/19 04:02 Large Platelets Not Reportable 10/03/19 04:02 Giant Platelets Not Reportable 10/03/19 04:02 Platelet Satelliting Not Reportable 10/03/19 04:02 Plt Morphology Comment Not Reportable 10/03/19 04:02 RBC Morphology Normal 10/03/19 04:02 Dimorphic RBCs Not Reportable 10/03/19 04:02 Polychromasia Not Reportable 10/03/19 04:02 Hypochromasia Not Reportable 10/03/19 04:02 Poikilocytosis Not Reportable 10/03/19 04:02 Anisocytosis Not Reportable 10/03/19 04:02 Microcytosis Not Reportable 10/03/19 04:02 Macrocytosis Not Reportable 10/03/19 04:02 Spherocytes Not Reportable 10/03/19 04:02 Pappenheimer Bodies Not Reportable 10/03/19 04:02 Sickle Cells Not Reportable 10/03/19 04:02 Target Cells Not Reportable 10/03/19 04:02 Tear Drop Cells Not Reportable 10/03/19 04:02 Ovalocytes Not Reportable 10/03/19 04:02 Helmet Cells Not Reportable 10/03/19 04:02 Madden-Noonday Bodies Not Reportable 10/03/19 04:02 [place] Rings Not Reportable 10/03/19 04:02 Kn[place]a Cells Not Reportable 10/03/19 04:02 Bite Cells Not Reportable 10/03/19 04:02 Crenated Cell Not Reportable 10/03/19 04:02 Elliptocytes Not Reportable 10/03/19 04:02 Acanthocytes (Spur) Not Reportable 10/03/19 04:02 Rouleaux Not Reportable 10/03/19 04:02 Hemoglobin C Crystals Not Reportable 10/03/19 04:02 Schistocytes Not Reportable 10/03/19 04:02 Malaria parasites Not Reportable 10/03/19 04:02 Cornelio Bodies Not Reportable 10/03/19 04:02 Hem Pathologist Commnt No 10/03/19 04:02 PT 14.5 Sec. (12.2-14.9) 10/01/19 05:36 INR 1.15 (0.87-1.13) H 10/01/19 05:36 APTT 28.6 Sec. (24.2-36.6) 10/01/19 05:36 D-Dimer 1957.06 ng/mlDDU (0-234) H 10/01/19 12:24 ABG pH 7.336 pH Units (7.350-7.450) L 10/03/19 05:20 ABG pCO2 41.7 mm Hg 10/03/19 05:20 ABG pO2 70.1 mm Hg (80.0-90.0) L 10/03/19 05:20 ABG HCO3 21.8 mmol/L (20.0-26.0) 10/03/19 05:20 ABG O2 Saturation 94.0 % (95.0-99.0) L 10/03/19 05:20 ABG O2 Content 18.0 (0.0-44) 10/03/19 05:20 ABG Base Excess -3.8 mmol/L (-2.0-3.0) L 10/03/19 05:20 ABG Hemoglobin 13.8 gm/dl (12.0-16.0) 10/03/19 05:20 ABG Carboxyhemoglobin 1.3 % (0.0-5.0) 10/03/19 05:20 ABG Methemoglobin 0.5 % (0.0-1.5) 10/03/19 05:20 Oxyhemoglobin 92.4 % (95.0-99.0) L 10/03/19 05:20 FiO2 70 % 10/03/19 05:20 Sodium 144 mmol/L (137-145) 10/03/19 04:02 Potassium 4.3 mmol/L (3.6-5.0) 10/03/19 04:02 Chloride 108.9 mmol/L (98-107) H 10/03/19 04:02 Carbon Dioxide 19 mmol/L (22-30) L 10/03/19 04:02 Anion Gap 20 mmol/L 10/03/19 04:02 BUN 64 mg/dL (7-17) H 10/03/19 04:02 Creatinine 2.1 mg/dL (0.7-1.2) H 10/03/19 04:02 Estimated GFR 29 ml/min 10/03/19 04:02 BUN/Creatinine Ratio 30 % 10/03/19 04:02 Glucose 212 mg/dL (65-100) H 10/03/19 04:02 POC Glucose 245 (70-105) H 10/03/19 11:58 Ketones Quantitative Negative (Negative) 10/01/19 06:31 Lactic Acid 1.80 mmol/L (0.7-2.0) 10/02/19 08:04 Calcium 9.1 mg/dL (8.4-10.2) 10/03/19 04:02 Phosphorus 4.70 mg/dL (2.5-4.5) H 10/01/19 12:45 Magnesium 2.50 mg/dL (1.7-2.3) H 10/01/19 12:45 Ferritin 1646.0 ng/mL (13.0-400.0) H 10/01/19 12:24 Total Bilirubin 0.30 mg/dL (0.1-1.2) 10/01/19 05:36 Direct Bilirubin < 0.2 mg/dL (0-0.2) 10/01/19 05:36 Indirect Bilirubin 0.1 mg/dL 10/01/19 05:36 AST 54 units/L (5-40) H 10/01/19 05:36 ALT 64 units/L (7-56) H 10/01/19 05:36 Alkaline Phosphatase 94 units/L (35-129) 10/01/19 05:36 Lactate Dehydrogenase 766 units/L (91-180) H 10/01/19 12:24 Troponin T 0.018 ng/mL (0.00-0.029) 10/01/19 05:36 C-Reactive Protein 18.60 mg/dL (0.00-1.30) H 10/01/19 12:24 NT-Pro-B Natriuret Pep 1525 pg/mL (0-900) H 10/01/19 12:45 Total Protein 6.6 g/dL (6.3-8.2) 10/01/19 05:36 Albumin 3.4 g/dL (3.9-5) L 10/01/19 05:36 Albumin/Globulin Ratio 1.1 % 10/01/19 05:36 Procalcitonin 1.73 ng/mL (<0.15) 10/01/19 12:24 Urine Creatinine 336.4 mg/dL (0.1-20.0) H 10/02/19 15:28 Urine Sodium 10 mmol/L 10/02/19 15:28 Coronavirus (PCR) Positive (Negative) A 10/01/19 Unknown Microbiology: Microbiology 10/01/19 05:36 Peripheral/Venous Blood Culture - Preliminary Coag Negative Staphylococcus 10/01/19 05:38 Peripheral/Venous Blood Culture - Preliminary NO GROWTH AFTER 48 HOURS 10/01/19 Unknown Tracheal Aspirate Sputum Culture - Preliminary Alexis/IV: Voiding Method Indwelling Catheter IV Catheter Type [Left Forearm INT / Saline Lock ] IV Catheter Type [Right Hand] Peripheral IV IV Catheter Type [Left Foot] INT / Saline Lock IV Catheter Type [Right Peripheral IV Forearm] Active Medications - Current Medications Current Medications: Generic Name Dose Route Start Last Admin Trade Name Freq PRN Reason Stop Dose Admin Acetaminophen 650 mg 10/01/19 09:10 Tylenol PO Q6H PRN Pain MILD(1-3)/Fever >100.5/PALOMARES Albuterol 2.5 mg 10/01/19 09:10 Proventil IH Q3HRT PRN Shortness Of Breath Amlodipine Besylate 10 mg 10/01/19 10:00 10/03/19 10:10 Amlodipine PO 10 mg QDAY CLARKE Administration Lipase/Protease/Amylase 1 each 10/02/19 11:[address] 10,500 Unit FEEDTUBE PRN PRN For Clogged Feeding Tube Ascorbic Acid 500 mg 10/01/19 16:00 10/03/19 09:24 Vitamin C PO 500 mg BID CLAKRE Administration Azithromycin 500 mg 10/02/19 10:00 10/03/19 09:24 Zithromax PO 500 mg QDAY CLARKE Administration Dextrose 50 ml 10/01/19 09:10 D50w (25gm) Syringe IV Q30MIN PRN Hypoglycemia Protocol Enoxaparin Sodium 60 mg 10/02/19 22:00 10/02/19 21:30 Enoxaparin SUB-Q 60 mg Q24H CLARKE Administration Famotidine 20 mg 10/04/19 10:00 Pepcid PO DAILY CLARKE Fentanyl 50 mcg 10/01/19 15:03 Sublimaze IV Q10MIN PRN ANALGESIA Hydralazine HCl 10 mg 10/01/19 09:20 10/03/19 10:56 Apresoline IV 10 mg Q4HR PRN Administration Hypertension Hydrophilic Ointment 1 applic 10/01/19 13:33 Vaseline Lip Therapy TP Q2HR PRN Dry Lips Ceftriaxone Sodium 2 gm in 100 mls @ 200 mls/hr 10/02/19 10:00 10/03/19 09:25 Rocephin/Ns 2 Gm/100 Ml IV 200 mls/hr Q24HR CLARKE Administration Protocol Propofol 1,000 mg in 100 mls @ 1.905 mls/hr 10/01/19 14:00 10/03/19 12:21 Diprivan 10 Mg/Ml IV 0 mcg/kg/min TITR CLARKE 0 mls/hr Titration Protocol 5 MCG/KG/MIN Fentanyl Citrate 2,000 mcg in 100 mls @ 3.175 mls/hr 10/01/19 16:00 10/03/19 12:21 Fentanyl Drip Premix IV 0 mcg/kg/hr TITR CLARKE 0 mls/hr Titration Protocol 1 MCG/KG/HR Nicardipine HCl 50 mg/ Sodium 250 mls @ 25 mls/hr 10/01/19 16:00 10/01/19 16:00 Chloride IV 0 mg/hr TITR CLARKE 0 mls/hr Titration Protocol 5 MG/HR Insulin Human Isoph/Insulin Regular 30 unit 10/01/19 10:00 10/03/19 08:25 Humulin 70/30 SUB-Q 30 unit BIDDIAB [facility] Administration Insulin Human Lispro 0 unit 10/01/19 12:00 10/03/19 11:27 Humalog SUB-Q 4 unit Q6HR [facility] Administration Protocol Methylprednisolone Sodium Succinate 40 mg 10/03/19 14:00 Solu-Medrol IV Q8HR [facility] Metoclopramide HCl 10 mg 10/01/19 09:10 Reglan IV Q6H PRN Nausea And Vomiting Multi-Ingred Cream/Lotion/Oil/Oint 1 applic 10/01/19 13:33 Artificial Tears Ophth Oint OU Q4HR PRN Dry Eye(s) Naloxone HCl 0.1 mg 10/01/19 09:10 Naloxone IV Q2MIN PRN Res Rate </= 8 or 02 SAT < 92% Simple Syrup 15 ml 10/02/19 11:44 Simple Syrup FEEDTUBE PRN PRN Hypoglycemia Simple Syrup 30 ml 10/02/19 11:44 Simple Syrup FEEDTUBE PRN PRN Hypoglycemia Sodium Bicarbonate 325 mg 10/02/19 11:44 Sodium Bicarbonate FEEDTUBE PRN PRN For Clogged Feeding Tube Sodium Chloride 10 ml 10/01/19 10:00 10/03/19 09:26 Sodium Chloride Flush Syringe 10 Ml IV 10 ml BID CLARKE Administration Sodium Chloride 10 ml 10/01/19 09:10 Sodium Chloride Flush Syringe 10 Ml IV PRN PRN LINE FLUSH Zinc Sulfate 220 mg 10/01/19 16:00 10/03/19 09:24 Zinc Sulfate PO 220 mg BID CLARKE Administration Nutrition/Malnutrition Assess - Dietary Evaluation Nutrition/Malnutrition Findings: Nutrition Notes Start: 10/01/19 14:13 Freq: Status: Active Protocol: Document 10/02/19 11:46 LP (Rec: 10/02/19 11:48 LP [email or web address]) Nutrition Notes Need for Assessment generated from: MD Order Initial or Follow up Brief Note Current Diagnosis Acute Kidney Injury,Diabetes, Hypertension Other Pertinent Diagnosis COVID-19 (+) Current Diet NPO Subjective/Other Information Consult for TF. Pt continues on vent. Nutrition Intervention Change Diet Order: TF Nutrition Support: Vital 1.2 at 45ml/hr Flush with 100ml q4h Kcal 1,296 Protein (gm) 81 Fluid (mL) 870 Goal #1 Meet at least 80% of kcal and protein needs Anticipated Discharge Needs: Unable to determine at this time Follow-Up By: 10/04/19 Additional Comments Follow for TF start/tolerance, renal labs
--- NOTE | 2019-10-03 14:00 | Progress Note ---
Assessment and Plan Cultures: 10/01/2019 coronavirus PCR: Positive 10/01/2019 blood culture: CoNS in 1/4 bottles 10/01/2019 tracheal aspirate culture: No growth A/P: 64-year-old female with diabetes, hypertension admitted with: #Bilateral pneumonia: Secondary to COVID-19. Inflammatory markers are significantly elevated. s/p Actemra on 10/01/2019. Continue steroids. Creatinine increasing, not a candidate for Remdesivir #Acute hypoxic respiratory failure: On mechanical ventilation. #Mild transaminitis: Likely secondary to COVID-19 #GPC bacteremia: CoNS in 1/4 bottles, likely a contaminant. #FANI: creatinine high. Recs: Continue steroids Creatinine elevated, not a candidate for Remdesivir Continue Ceftriaxone, azithromycin for total 5 days trend ferritin, d-dimer, CRP every 2 days for risk stratification and to assess disease progression Agree with full anticoagulation Consider enrollment for convalescent plasma Ashly Booker MD, FACP [facility] C: [phone] O: [phone] F: [phone] Subjective Date of service: 10/03/19 Interval history: No fever. Remains intubated, sedated, on the vent. Objective - Exam Narrative Exam: Physical Exam (reviewed in chart due to PPE conservation) Constitutional: intubated, sedated, on the vent Head, Ears, Nose: normocephalic, atraumatic Eyes: limited due to PPE conservation strategy Neck: intubated Oral: intubated Cardiovascular: limited due to PPE conservation strategy Respiratory: limited due to PPE conservation strategy GI: limited due to PPE conservation strategy Musculoskeletal: limited due to PPE conservation strategy Skin: limited due to PPE conservation strategy Hem/Lymphatic: limited due to PPE conservation strategy Psych: no agitation Neurological: sedated, intubated, on the vent, exam limited - Constitutional Vitals: Vital Signs Temp Pulse Resp BP Pulse Ox 97.9 F 99 H 32 H 86/55 90 10/03/19 08:00 10/03/19 13:00 10/03/19 13:00 10/03/19 13:00 10/03/19 13:00 Temperature -Last 24 Hours Temperature 97.9 F Temperature 97.7 F Temperature 97.8 F Temperature 97.5 F Temperature 97.5 F - Labs CBC & Chem 7: 10/03/19 04:02 10/03/19 04:02 Labs: Abnormal lab results 10/02/19 10/02/19 10/03/19 Range/Units 15:28 17:57 00:32 WBC (4.5-11.0) K/mm3 Seg Neuts % (Manual) (40.0-70.0) % Lymphocytes % (Manual) (13.4-35.0) % Nucleated RBC % (0.0-0.9) % Seg Neutrophils # Man (1.8-7.7) K/mm3 Lymphocytes # (Manual) (1.2-5.4) K/mm3 ABG pH (7.350-7.450) pH Units ABG pO2 (80.0-90.0) mm Hg ABG O2 Saturation (95.0-99.0) % ABG Base Excess (-2.0-3.0) mmol/L Oxyhemoglobin (95.0-99.0) % Chloride (98-107) mmol/L Carbon Dioxide (22-30) mmol/L BUN (7-17) mg/dL Creatinine (0.7-1.2) mg/dL Glucose (65-100) mg/dL POC Glucose 137 H 184 H (70-105) Urine Creatinine 336.4 H (0.1-20.0) mg/dL 10/03/19 10/03/19 10/03/19 Range/Units 04:02 04:02 04:26 WBC 17.2 H (4.5-11.0) K/mm3 Seg Neuts % (Manual) 95.0 H (40.0-70.0) % Lymphocytes % (Manual) 3.0 L (13.4-35.0) % Nucleated RBC % 2.0 H (0.0-0.9) % Seg Neutrophils # Man 16.3 H (1.8-7.7) K/mm3 Lymphocytes # (Manual) 0.5 L (1.2-5.4) K/mm3 ABG pH (7.350-7.450) pH Units ABG pO2 (80.0-90.0) mm Hg ABG O2 Saturation (95.0-99.0) % ABG Base Excess (-2.0-3.0) mmol/L Oxyhemoglobin (95.0-99.0) % Chloride 108.9 H (98-107) mmol/L Carbon Dioxide 19 L (22-30) mmol/L BUN 64 H (7-17) mg/dL Creatinine 2.1 H (0.7-1.2) mg/dL Glucose 212 H (65-100) mg/dL POC Glucose 197 H (70-105) Urine Creatinine (0.1-20.0) mg/dL 10/03/19 10/03/19 10/03/19 Range/Units 05:20 11:22 11:58 WBC (4.5-11.0) K/mm3 Seg Neuts % (Manual) (40.0-70.0) % Lymphocytes % (Manual) (13.4-35.0) % Nucleated RBC % (0.0-0.9) % Seg Neutrophils # Man (1.8-7.7) K/mm3 Lymphocytes # (Manual) (1.2-5.4) K/mm3 ABG pH 7.336 L (7.350-7.450) pH Units ABG pO2 70.1 L (80.0-90.0) mm Hg ABG O2 Saturation 94.0 L (95.0-99.0) % ABG Base Excess -3.8 L (-2.0-3.0) mmol/L Oxyhemoglobin 92.4 L (95.0-99.0) % Chloride (98-107) mmol/L Carbon Dioxide (22-30) mmol/L BUN (7-17) mg/dL Creatinine (0.7-1.2) mg/dL Glucose (65-100) mg/dL POC Glucose 248 H 245 H (70-105) Urine Creatinine (0.1-20.0) mg/dL
[2019-10-03] MEDS: methylPREDNISolone Sod Succinate 40 MG/1 ML INJ IV SCH ×2 (14:10→21:49)
--- NOTE | 2019-10-03 14:18 | XRay Report ---
CHEST 1 VIEW--first exam was at 2:38 AM today and the second exam was at 1:32 PM INDICATION: follow up respiratory failure. COMPARISON: Chest x-ray from yesterday FINDINGS: SUPPORT DEVICES: Stable satisfactory device positioning. HEART: Within normal limits. LUNGS/PLEURA: Persistent patchy multifocal airspace disease, improved since yesterday but stable thro ughout today. ADDITIONAL FINDINGS: None. IMPRESSION: 1. Improved exam findings as outlined above compared to yesterday and stable throughout today. Signer Name: Braulio Saucedo MD Signed: 10/03/2019 2:14 PM Workstation Name: [id number]
--- NOTE | 2019-10-03 15:45 | Progress Note ---
Assessment and Plan Acute hypoxemic respiratory failure, on mechanical ventilatory support. Acute respiratory distress syndrome. COVID-19 virus infection. Bilateral pneumonia. Possible pulmonary edema. Severe sepsis. Leukocytosis. Acute kidney injury. Hyperglycemia. Lactic acidosis. Elevated serum transaminases. Oropharyngeal dysphagia - intubated RSI with Glideoscope at bedside - continue airborne and contact precautions - Remdesivir dosing per ID - Actemra dosing per ID rec's - covalescent plasma per ID rec's - continue Zinc and Ascorbic acid supplementation - continue systemic steroids for oxygen dependent COVID 19 infection - follow serum transaminases - Daily SAT and SBT assessment as tolerated - continue accuchecks with glycemic control per SSI (While critically ill target blood glucose of 140-180 mg/dL; avoid hypoglycemia) - sedation for target RASS 0 to -1 - continue to wean supplemental oxygen for target O2 sat's > 92% acutely - VAP bundle addressed - continue lung protective strategies - continue bronchodilators with pulmonary hygiene per RT - wean per pulmonary driven protocols otherwise - continue to avoid benzodiazepine's, reduce the possibility of delirium - continue AB's per ID rec's - prn analgesia per CPOT score - Maintenance of sleep-wake cycle, avoid delirium - continue enteral nutritional support at goal rate as tolerated - G.I. & VTE prophylaxis - PT/OT/ROM exercises - continue mobility protocols for pressure ulcer prophylaxis - Monitor hemodynamics closely - continue other care per attending / other consultants - discharge planning ongoing concurrently .... Re-evaluate in am & prn CONDITION: CRITICAL PROGNOSIS: GUARDED CODE STATUS: FULL CODE The high probability of a clinically significant, sudden or life-threatening deterioration of the [respiratory, cardiovascular & neurologic] system(s) required my full and direct attention, intervention and personal management. The aggregate critical care time was [36] minutes without overlap. Time includes spent on; [x] Data Review and interpretation [x] Patient assessment and monitoring of vital signs [x] Documentation [x] Medication orders and management Subjective Date of service: 10/03/19 Principal diagnosis: Ac. hypoxemic resp failure; ARDS; COVID-19 virus infxn; PNA; Severe sepsis Interval history: Patient is seen today for: Ac. hypoxemic resp failure; ARDS; COVID-19 virus infection; Bilateral pneumonia; Severe sepsis; FANI Seen and examined at bedside; 24hour events reviewed; nursing and respiratory care staff consulted; no adverse overnight events reported to me; resting peacefully in bed; self extubated this am; Objective Vital Signs - 12hr 10/03/19 10/03/19 10/03/19 04:00 04:30 05:00 Temperature 97.7 F Pulse Rate 75 73 83 Pulse Rate [ 75 From Monitor] Respiratory 21 21 19 Rate Blood Pressure 137/81 152/87 149/88 O2 Sat by Pulse 97 96 96 Oximetry 10/03/19 10/03/19 10/03/19 05:15 05:30 06:00 Temperature Pulse Rate 78 82 72 Pulse Rate [ From Monitor] Respiratory 14 13 Rate Blood Pressure 149/88 149/88 149/88 O2 Sat by Pulse 96 93 94 Oximetry 10/03/19 10/03/19 10/03/19 06:30 07:00 07:30 Temperature Pulse Rate 74 75 76 Pulse Rate [ From Monitor] Respiratory 21 20 25 H Rate Blood Pressure 78/37 78/37 78/37 O2 Sat by Pulse 97 95 96 Oximetry 10/03/19 10/03/19 10/03/19 08:00 08:20 08:30 Temperature 97.9 F Pulse Rate 84 74 71 Pulse Rate [ 75 From Monitor] Respiratory 20 14 Rate Blood Pressure 78/37 78/37 78/37 O2 Sat by Pulse 97 97 95 Oximetry 10/03/19 10/03/19 10/03/19 09:00 09:30 10:00 Temperature Pulse Rate 71 73 90 Pulse Rate [ From Monitor] Respiratory 12 17 25 H Rate Blood Pressure 78/37 78/37 155/132 O2 Sat by Pulse 94 94 91 Oximetry 10/03/19 10/03/19 10/03/19 10:10 10:30 10:56 Temperature Pulse Rate 75 74 75 Pulse Rate [ From Monitor] Respiratory 22 Rate Blood Pressure 175/95 172/93 175/95 O2 Sat by Pulse 87 Oximetry 10/03/19 10/03/19 10/03/19 11:00 11:30 11:59 Temperature Pulse Rate 76 94 H 75 Pulse Rate [ From Monitor] Respiratory 17 30 H Rate Blood Pressure 161/86 156/83 175/95 O2 Sat by Pulse 91 95 87 Oximetry 10/03/19 10/03/19 10/03/19 12:00 12:30 13:00 Temperature Pulse Rate 71 118 H 99 H Pulse Rate [ 122 H From Monitor] Respiratory 20 35 H 32 H Rate Blood Pressure 160/86 169/85 86/55 O2 Sat by Pulse 97 94 90 Oximetry 10/03/19 10/03/19 10/03/19 13:30 14:00 14:30 Temperature Pulse Rate 101 H 105 H 97 H Pulse Rate [ From Monitor] Respiratory 22 32 H 29 H Rate Blood Pressure 86/55 153/78 147/79 O2 Sat by Pulse 93 95 95 Oximetry 10/03/19 15:00 Temperature Pulse Rate 99 H Pulse Rate [ From Monitor] Respiratory 30 H Rate Blood Pressure 152/79 O2 Sat by Pulse 94 Oximetry Constitutional: appears uncomfortable, other (elderly looking AAF with mildly increased resp effort at rest on mvs) Eyes: non-icteric ENT: oropharynx moist, other (ETT 24 cm GLYNN) Neck: supple, no lymphadenopathy, no JVD Effort: mildly labored Ascultation: Bilateral: rales Percussion: Bilateral: not dull Cardiovascular: regular rate and rhythm Gastrointestinal: normoactive bowel sounds, soft, non-tender, non-distended Integumentary: normal Extremities: no cyanosis, no edema, pulses normal, no ischemia or petechiae Neurologic: normal mental status, non-focal exam, pupils equal and round, motor strength normal and Psychiatric: mood appropriate, affect normal CBC and BMP: 10/03/19 04:02 10/03/19 04:02 ABG, PT/INR, D-dimer: ABG ABG pH 7.336 pH Units (7.350-7.450) L 10/03/19 05:20 ABG pCO2 41.7 mm Hg 10/03/19 05:20 ABG pO2 70.1 mm Hg (80.0-90.0) L 10/03/19 05:20 ABG O2 Saturation 94.0 % (95.0-99.0) L 10/03/19 05:20 PT/INR, D-dimer PT 14.5 Sec. (12.2-14.9) 10/01/19 05:36 INR 1.15 (0.87-1.13) H 10/01/19 05:36 D-Dimer 1957.06 ng/mlDDU (0-234) H 10/01/19 12:24 Abnormal lab findings: Abnormal Labs 10/01/19 10/01/19 10/01/19 05:36 05:36 05:36 WBC Seg Neuts % (Manual) Lymphocytes % (Manual) Nucleated RBC % Seg Neutrophils # Man Lymphocytes # (Manual) INR 1.15 H D-Dimer 1648.23 H ABG pH ABG pO2 ABG O2 Saturation ABG Base Excess ABG Hemoglobin Oxyhemoglobin Chloride Carbon Dioxide BUN Creatinine Glucose 424 H POC Glucose Lactic Acid Phosphorus Magnesium Ferritin 1745.0 H AST ALT Lactate Dehydrogenase 822 H C-Reactive Protein 15.10 H NT-Pro-B Natriuret Pep Albumin Urine Creatinine Coronavirus (PCR) 10/01/19 10/01/19 10/01/19 05:36 05:36 06:31 WBC 12.8 H Seg Neuts % (Manual) 93.0 H Lymphocytes % (Manual) 2.0 L Nucleated RBC % Seg Neutrophils # Man 11.9 H Lymphocytes # (Manual) 0.3 L INR D-Dimer ABG pH ABG pO2 ABG O2 Saturation ABG Base Excess ABG Hemoglobin Oxyhemoglobin Chloride Carbon Dioxide 13 L BUN 34 H Creatinine 1.4 H Glucose 413 H POC Glucose Lactic Acid 7.20 H* Phosphorus Magnesium Ferritin AST 54 H ALT 64 H Lactate Dehydrogenase C-Reactive Protein NT-Pro-B Natriuret Pep Albumin 3.4 L Urine Creatinine Coronavirus (PCR) 10/01/19 10/01/19 10/01/19 10:05 12:24 12:24 WBC Seg Neuts % (Manual) Lymphocytes % (Manual) Nucleated RBC % Seg Neutrophils # Man Lymphocytes # (Manual) INR D-Dimer 1957.06 H ABG pH ABG pO2 ABG O2 Saturation ABG Base Excess ABG Hemoglobin Oxyhemoglobin Chloride Carbon Dioxide BUN Creatinine Glucose 346 H POC Glucose 354 H Lactic Acid Phosphorus Magnesium Ferritin AST ALT Lactate Dehydrogenase 766 H C-Reactive Protein 18.60 H NT-Pro-B Natriuret Pep Albumin Urine Creatinine Coronavirus (PCR) 10/01/19 10/01/19 10/01/19 12:24 12:45 14:30 WBC Seg Neuts % (Manual) Lymphocytes % (Manual) Nucleated RBC % Seg Neutrophils # Man Lymphocytes # (Manual) INR D-Dimer ABG pH 7.263 L ABG pO2 60.7 L ABG O2 Saturation 88.2 L ABG Base Excess -6.4 L ABG Hemoglobin Oxyhemoglobin 86.6 L Chloride Carbon Dioxide BUN Creatinine Glucose POC Glucose Lactic Acid Phosphorus 4.70 H Magnesium 2.50 H Ferritin 1646.0 H AST ALT Lactate Dehydrogenase C-Reactive Protein NT-Pro-B Natriuret Pep 1525 H Albumin Urine Creatinine Coronavirus (PCR) 10/01/19 10/01/19 10/01/19 17:20 18:15 21:08 WBC Seg Neuts % (Manual) Lymphocytes % (Manual) Nucleated RBC % Seg Neutrophils # Man Lymphocytes # (Manual) INR D-Dimer ABG pH 7.289 L ABG pO2 52.1 L ABG O2 Saturation 83.2 L ABG Base Excess -4.8 L ABG Hemoglobin 10.5 L Oxyhemoglobin 81.4 L Chloride Carbon Dioxide BUN Creatinine Glucose POC Glucose 299 H 266 H Lactic Acid Phosphorus Magnesium Ferritin AST ALT Lactate Dehydrogenase C-Reactive Protein NT-Pro-B Natriuret Pep Albumin Urine Creatinine Coronavirus (PCR) 10/01/19 10/01/19 10/02/19 21:35 Unknown 01:23 WBC Seg Neuts % (Manual) Lymphocytes % (Manual) Nucleated RBC % Seg Neutrophils # Man Lymphocytes # (Manual) INR D-Dimer ABG pH 7.327 L ABG pO2 75.1 L ABG O2 Saturation 94.5 L ABG Base Excess -4.4 L ABG Hemoglobin Oxyhemoglobin 92.8 L Chloride Carbon Dioxide BUN Creatinine Glucose POC Glucose 291 H Lactic Acid Phosphorus Magnesium Ferritin AST ALT Lactate Dehydrogenase C-Reactive Protein NT-Pro-B Natriuret Pep Albumin Urine Creatinine Coronavirus (PCR) Positive A 10/02/19 10/02/19 10/02/19 03:55 05:18 05:18 WBC 17.8 H Seg Neuts % (Manual) 93.0 H Lymphocytes % (Manual) 5.0 L Nucleated RBC % 1.0 H Seg Neutrophils # Man 16.6 H Lymphocytes # (Manual) 0.9 L INR D-Dimer ABG pH 7.308 L ABG pO2 129.3 H ABG O2 Saturation ABG Base Excess -4.9 L ABG Hemoglobin 16.1 H Oxyhemoglobin Chloride 111.1 H Carbon Dioxide 19 L BUN 44 H Creatinine 2.4 H D Glucose 227 H POC Glucose Lactic Acid Phosphorus Magnesium Ferritin AST ALT Lactate Dehydrogenase C-Reactive Protein NT-Pro-B Natriuret Pep Albumin Urine Creatinine Coronavirus (PCR) 10/02/19 10/02/19 10/02/19 07:15 15:28 17:57 WBC Seg Neuts % (Manual) Lymphocytes % (Manual) Nucleated RBC % Seg Neutrophils # Man Lymphocytes # (Manual) INR D-Dimer ABG pH ABG pO2 ABG O2 Saturation ABG Base Excess ABG Hemoglobin Oxyhemoglobin Chloride Carbon Dioxide BUN Creatinine Glucose POC Glucose 196 H 137 H Lactic Acid Phosphorus Magnesium Ferritin AST ALT Lactate Dehydrogenase C-Reactive Protein NT-Pro-B Natriuret Pep Albumin Urine Creatinine 336.4 H Coronavirus (PCR) 10/03/19 10/03/19 10/03/19 00:32 04:02 04:02 WBC 17.2 H Seg Neuts % (Manual) 95.0 H Lymphocytes % (Manual) 3.0 L Nucleated RBC % 2.0 H Seg Neutrophils # Man 16.3 H Lymphocytes # (Manual) 0.5 L INR D-Dimer ABG pH ABG pO2 ABG O2 Saturation ABG Base Excess ABG Hemoglobin Oxyhemoglobin Chloride 108.9 H Carbon Dioxide 19 L BUN 64 H Creatinine 2.1 H Glucose 212 H POC Glucose 184 H Lactic Acid Phosphorus Magnesium Ferritin AST ALT Lactate Dehydrogenase C-Reactive Protein NT-Pro-B Natriuret Pep Albumin Urine Creatinine Coronavirus (PCR) 10/03/19 10/03/19 10/03/19 04:26 05:20 11:22 WBC Seg Neuts % (Manual) Lymphocytes % (Manual) Nucleated RBC % Seg Neutrophils # Man Lymphocytes # (Manual) INR D-Dimer ABG pH 7.336 L ABG pO2 70.1 L ABG O2 Saturation 94.0 L ABG Base Excess -3.8 L ABG Hemoglobin Oxyhemoglobin 92.4 L Chloride Carbon Dioxide BUN Creatinine Glucose POC Glucose 197 H 248 H Lactic Acid Phosphorus Magnesium Ferritin AST ALT Lactate Dehydrogenase C-Reactive Protein NT-Pro-B Natriuret Pep Albumin Urine Creatinine Coronavirus (PCR) 10/03/19 11:58 WBC Seg Neuts % (Manual) Lymphocytes % (Manual) Nucleated RBC % Seg Neutrophils # Man Lymphocytes # (Manual) INR D-Dimer ABG pH ABG pO2 ABG O2 Saturation ABG Base Excess ABG Hemoglobin Oxyhemoglobin Chloride Carbon Dioxide BUN Creatinine Glucose POC Glucose 245 H Lactic Acid Phosphorus Magnesium Ferritin AST ALT Lactate Dehydrogenase C-Reactive Protein NT-Pro-B Natriuret Pep Albumin Urine Creatinine Coronavirus (PCR)
[2019-10-03] MEDS: METOPROLOL TARTRATE 25 MG TAB PO SCH ×2 (16:11→21:50)
[2019-10-03] MEDS: ENOXAPARIN 60 MG/0.6 ML INJ SUB-Q SCH (21:53)
[2019-10-04] MEDS: INSULIN LISPRO 100 UNIT/ML SUB-Q SCH ×4 (00:36→19:53)
[2019-10-04 04:43] LABS: ABG Base Excess -3.5 mmol/L (-2.0-3.0); ABG HCO3 21.7 mmol/L (20.0-26.0); ABG Methemoglobin 0.3 % (0.0-1.5); ABG Oxygen Saturation 98.4 % (95.0-99.0); ABG PCO2 40.1 mm Hg; ABG PH 7.352 pH Units (7.350-7.450); ABG PO2 129.4 mm Hg (80.0-90.0)
[2019-10-04] MEDS: fentaNYL DRIP Premix 2,000 MCG/100 ML BAG IV SCH ×3 (05:40→23:54)
[2019-10-04] MEDS: methylPREDNISolone Sod Succinate 40 MG/1 ML INJ IV SCH ×3 (05:55→21:59)
--- NOTE | 2019-10-04 06:19 | XRay Report ---
CHEST 1 VIEW 5:26 AM INDICATION / CLINICAL INFORMATION: Follow-up respiratory failure. COMPARISON: Yesterday. FINDINGS: SUPPORT DEVICES: The position of the nasogastric tube has not changed. HEART / MEDIASTINUM: Unchanged. LUNGS / PLEURA: Moderate patchy parenchymal disease throughout both lungs has shown mild improvement, predominantly on the right. No significant pleural effusion. No pneumothorax. ADDITIONAL FINDINGS: No significant additional findings. IMPRESSION: Interval improvement in bilateral parenchymal disease, mainly on the right, since yesterd ay. Signer Name: Alphonse Chan MD Signed: 10/04/2019 6:15 AM Workstation Name: [id number]
[2019-10-04] MEDS: INSULIN NPH/REGULAR 70/30 INJ SUB-Q SCH ×2 (09:20→16:10)
[2019-10-04] MEDS: hydrALAZINE 20 MG/1 ML INJ IV PRN (10:00)
[2019-10-04] MEDS: ASCORBIC ACID 500 MG TAB PO SCH ×2 (10:21→21:59)
[2019-10-04] MEDS: ZINC SULFATE 220 MG CAP PO SCH ×2 (10:21→21:59)
[2019-10-04] MEDS: METOPROLOL TARTRATE 25 MG TAB PO SCH (10:21)
[2019-10-04] MEDS: cefTRIAXone/NS 2 GM/100 ML 2 GM/100 ML BAG IV SCH (10:21)
[2019-10-04] MEDS: FAMOTIDINE 20 MG TAB PO SCH (10:21)
[2019-10-04] MEDS: AZITHROMYCIN 250 MG TAB PO SCH (10:22)
[2019-10-04] MEDS: amLODIPine 10 MG TAB PO SCH (10:22)
--- NOTE | 2019-10-04 12:28 | Progress Note ---
Assessment and Plan Severe sepsis secondary to COVID COVID pneumonia with ARDS Acute hypoxemic respiratory failure, orally intubated on [facility] [place] Multi-lobar pneumonia FANI -ABG, CXR now and daily -CBC, BMP now - Wean supplemental oxygen for target O2 sats > 92% -Increased PEEP to 20 monitor airway pressures closely -Proning per facility protocol- will like her proned for 12-18 hours - Daily SAT's and SBT assessment - current ventilator demands precludes this - VAP bundle addressed - Lung protective strategies -Fluid conservative measures as tolerated by hemodynamics and renal function - Bronchodilators with pulmonary hygiene per RT - Accuchecks with glycemic control per SSI (While critically ill target blood glucose of 140-180 mg/dL; avoid hypoglycemia) - Avoid benzodiazepines, reduce the possibility of delirium - prn analgesia per CPOT score - Maintenance of sleep-wake cycle, avoid delirium -Avoid nephrotoxins, closely monitor renal function -Alexis catheter for accurate intake and output monitoring in this critically ill patient with COVID-ARDS, severe hypoxemia -Empiric antibiotics( Ceftriaxone and Azithromycin for CAP ) -RD consult for enteral nutritional support especially with proning -Aspiration precautions, HOB >40 -Sedation Fentanyl, Propofol and midazolam titrate to RASS -1 to -2 - Stress ulcer & VTE prophylaxis (Lovenox- therapeutic dose, Famotidine) - Mobility protocol, off loading and skin assessment for pressure ulcer prev ention - Monitor hemodynamics closely -Supportive transfusions as indicated to keep HgB >7g/dL -Place intrarterial line for frequent ABG and in the event of proning -Early consideration for transfer for evaluation for ECMO if she does not improve or there is ongoing deterioration COVID SPECIFIC INTERVENTIONS -Needs aggressive management per ID/Pulmonary drive protocols -Airborne, contact isolation for COVID per facility protocols -Patient has renal impairment and is not a candidate for Remdesivir at this time -Consent and administration of convalescent plasma per facility protocol -Continue with steroids, solumedrol IV 40mg q8 -Continue with therapeutic enoxaparin therapy -Trend inflammatory markers per facility protocol -Continue all supportive care -Contact tracing and testing of her contacts Discussed with the ICU team-RT,RN, Case management and clinical pharmacist Discussed extensively with ID and primary Attending Life threatening condition- Severe sepsis with COVID 19 ARDS acute hypoxemic respiratory failure on [facility] [place] Mortality/Morbidity- High Complexity of medical decision making- High CONDITION: CRITICAL PROGNOSIS: GUARDED-GRAVE CODE STATUS: FULL CODE The high probability of a clinically significant, sudden or life-threatening deterioration of the [respiratory , cardiovascular, renal, neurology] system(s) required my full and direct attention, intervention and personal management. The aggregate critical care time was [45] minutes without overlap. Time includes spent on; [x] Data Review and interpretation [x] Patient assessment and monitoring of vital signs [x] Documentation [x] Medication orders and management Subjective Date of service: 10/04/19 Principal diagnosis: Ac. hypoxemic resp failure; ARDS; COVID-19 virus infxn; PNA; Severe sepsis Interval history: Patient is seen today for: Ac. hypoxemic resp failure; ARDS; COVID-19 virus infection; Bilateral pneumonia; Severe sepsis; FNAI Seen and examined at bedside; 24hour events reviewed; nursing and respiratory care staff consulted; no adverse overnight events reported to me; resting in bed; desaturations requiring increasing FIO2, now at 100% with a PEEP of 12 and O2 sats of 88 % No fevers, on Fentanyl and propofol Objective Vital Signs - 12hr 10/04/19 10/04/19 10/04/19 00:30 00:41 00:45 Temperature Pulse Rate 75 70 70 Pulse Rate [ From Monitor] Respiratory 16 22 Rate Blood Pressure 126/86 126/86 136/86 O2 Sat by Pulse 95 95 98 Oximetry 10/04/19 10/04/19 10/04/19 01:00 01:15 01:30 Temperature Pulse Rate 72 70 68 Pulse Rate [ From Monitor] Respiratory 25 H 17 15 Rate Blood Pressure 142/88 128/84 126/86 O2 Sat by Pulse 98 92 95 Oximetry 10/04/19 10/04/19 10/04/19 01:45 02:00 02:15 Temperature Pulse Rate 74 74 72 Pulse Rate [ From Monitor] Respiratory 17 22 19 Rate Blood Pressure 133/87 138/89 132/91 O2 Sat by Pulse 94 96 96 Oximetry 10/04/19 10/04/19 10/04/19 02:30 02:45 03:00 Temperature Pulse Rate 71 71 68 Pulse Rate [ From Monitor] Respiratory 20 20 15 Rate Blood Pressure 138/89 138/89 144/87 O2 Sat by Pulse 97 98 98 Oximetry 10/04/19 10/04/19 10/04/19 03:15 03:30 03:38 Temperature Pulse Rate 68 74 67 Pulse Rate [ From Monitor] Respiratory 13 13 Rate Blood Pressure 139/88 144/94 144/94 O2 Sat by Pulse 98 98 100 Oximetry 10/04/19 10/04/19 10/04/19 03:45 04:00 04:15 Temperature 97.6 F Pulse Rate 66 73 70 Pulse Rate [ 73 From Monitor] Respiratory 16 21 22 Rate Blood Pressure 145/90 133/89 144/93 O2 Sat by Pulse 100 98 98 Oximetry 10/04/19 10/04/19 10/04/19 04:30 04:45 05:00 Temperature Pulse Rate 72 72 74 Pulse Rate [ From Monitor] Respiratory 12 16 20 Rate Blood Pressure 144/91 145/93 147/88 O2 Sat by Pulse 97 96 95 Oximetry 10/04/19 10/04/19 10/04/19 05:15 05:30 05:45 Temperature Pulse Rate 71 75 70 Pulse Rate [ From Monitor] Respiratory 24 20 13 Rate Blood Pressure 147/93 150/93 149/94 O2 Sat by Pulse 97 99 94 Oximetry 10/04/19 10/04/19 10/04/19 06:00 06:15 06:30 Temperature Pulse Rate 71 73 72 Pulse Rate [ From Monitor] Respiratory 22 14 19 Rate Blood Pressure 150/94 139/88 146/94 O2 Sat by Pulse 91 88 90 Oximetry 10/04/19 10/04/19 10/04/19 06:45 07:00 07:15 Temperature Pulse Rate 79 79 75 Pulse Rate [ From Monitor] Respiratory 17 23 18 Rate Blood Pressure 152/97 149/96 165/98 O2 Sat by Pulse 85 84 89 Oximetry 10/04/19 10/04/19 10/04/19 07:30 07:45 08:00 Temperature 97.7 F Pulse Rate 74 77 78 Pulse Rate [ 73 From Monitor] Respiratory 24 23 25 H Rate Blood Pressure 160/95 163/98 154/96 O2 Sat by Pulse 85 83 L 85 Oximetry 10/04/19 10/04/19 10/04/19 08:54 10:00 10:21 Temperature Pulse Rate 82 79 81 Pulse Rate [ From Monitor] Respiratory Rate Blood Pressure 155/58 170/98 168/99 O2 Sat by Pulse 90 Oximetry 10/04/19 10/04/19 10:22 12:08 Temperature Pulse Rate 74 86 Pulse Rate [ From Monitor] Respiratory Rate Blood Pressure 168/99 126/80 O2 Sat by Pulse 92 Oximetry Constitutional: appears uncomfortable, other (elderly looking AAF with mildly increased resp effort at rest on mvs) Eyes: non-icteric ENT: oropharynx moist, other (ETT 24 cm GLYNN) Neck: supple, no lymphadenopathy, no JVD Effort: very labored Ascultation: Bilateral: diminished breath sounds, rales Percussion: Bilateral: not dull Cardiovascular: regular rate and rhythm, other (S1,S2, no murmurs) Gastrointestinal: normoactive bowel sounds, soft, non-tender, non-distended Integumentary: normal Extremities: no cyanosis, no edema, pulses normal, no ischemia or petechiae Neurologic: pupils equal and round, other (unable to assess, sedated) Psychiatric: other (unable to assess, sedated) CBC and BMP: 10/03/19 04:02 10/03/19 04:02 ABG, PT/INR, D-dimer: ABG ABG pH 7.352 pH Units (7.350-7.450) 10/04/19 03:50 ABG pCO2 40.1 mm Hg 10/04/19 03:50 ABG pO2 129.4 mm Hg (80.0-90.0) H 10/04/19 03:50 ABG O2 Saturation 98.4 % (95.0-99.0) 10/04/19 03:50 PT/INR, D-dimer PT 14.5 Sec. (12.2-14.9) 10/01/19 05:36 INR 1.15 (0.87-1.13) H 10/01/19 05:36 D-Dimer 1957.06 ng/mlDDU (0-234) H 10/01/19 12:24 Abnormal lab findings: Abnormal Labs 10/01/19 10/01/19 10/01/19 05:36 05:36 05:36 WBC Seg Neuts % (Manual) Lymphocytes % (Manual) Nucleated RBC % Seg Neutrophils # Man Lymphocytes # (Manual) INR 1.15 H D-Dimer 1648.23 H ABG pH ABG pO2 ABG O2 Saturation ABG Base Excess ABG Hemoglobin Oxyhemoglobin Chloride Carbon Dioxide BUN Creatinine Glucose 424 H POC Glucose Lactic Acid Phosphorus Magnesium Ferritin 1745.0 H AST ALT Lactate Dehydrogenase 822 H C-Reactive Protein 15.10 H NT-Pro-B Natriuret Pep Albumin Urine Creatinine Coronavirus (PCR) 10/01/19 10/01/19 10/01/19 05:36 05:36 06:31 WBC 12.8 H Seg Neuts % (Manual) 93.0 H Lymphocytes % (Manual) 2.0 L Nucleated RBC % Seg Neutrophils # Man 11.9 H Lymphocytes # (Manual) 0.3 L INR D-Dimer ABG pH ABG pO2 ABG O2 Saturation ABG Base Excess ABG Hemoglobin Oxyhemoglobin Chloride Carbon Dioxide 13 L BUN 34 H Creatinine 1.4 H Glucose 413 H POC Glucose Lactic Acid 7.20 H* Phosphorus Magnesium Ferritin AST 54 H ALT 64 H Lactate Dehydrogenase C-Reactive Protein NT-Pro-B Natriuret Pep Albumin 3.4 L Urine Creatinine Coronavirus (PCR) 10/01/19 10/01/19 10/01/19 10:05 12:24 12:24 WBC Seg Neuts % (Manual) Lymphocytes % (Manual) Nucleated RBC % Seg Neutrophils # Man Lymphocytes # (Manual) INR D-Dimer 1957.06 H ABG pH ABG pO2 ABG O2 Saturation ABG Base Excess ABG Hemoglobin Oxyhemoglobin Chloride Carbon Dioxide BUN Creatinine Glucose 346 H POC Glucose 354 H Lactic Acid Phosphorus Magnesium Ferritin AST ALT Lactate Dehydrogenase 766 H C-Reactive Protein 18.60 H NT-Pro-B Natriuret Pep Albumin Urine Creatinine Coronavirus (PCR) 10/01/19 10/01/19 10/01/19 12:24 12:45 14:30 WBC Seg Neuts % (Manual) Lymphocytes % (Manual) Nucleated RBC % Seg Neutrophils # Man Lymphocytes # (Manual) INR D-Dimer ABG pH 7.263 L ABG pO2 60.7 L ABG O2 Saturation 88.2 L ABG Base Excess -6.4 L ABG Hemoglobin Oxyhemoglobin 86.6 L Chloride Carbon Dioxide BUN Creatinine Glucose POC Glucose Lactic Acid Phosphorus 4.70 H Magnesium 2.50 H Ferritin 1646.0 H AST ALT Lactate Dehydrogenase C-Reactive Protein NT-Pro-B Natriuret Pep 1525 H Albumin Urine Creatinine Coronavirus (PCR) 10/01/19 10/01/19 10/01/19 17:20 18:15 21:08 WBC Seg Neuts % (Manual) Lymphocytes % (Manual) Nucleated RBC % Seg Neutrophils # Man Lymphocytes # (Manual) INR D-Dimer ABG pH 7.289 L ABG pO2 52.1 L ABG O2 Saturation 83.2 L ABG Base Excess -4.8 L ABG Hemoglobin 10.5 L Oxyhemoglobin 81.4 L Chloride Carbon Dioxide BUN Creatinine Glucose POC Glucose 299 H 266 H Lactic Acid Phosphorus Magnesium Ferritin AST ALT Lactate Dehydrogenase C-Reactive Protein NT-Pro-B Natriuret Pep Albumin Urine Creatinine Coronavirus (PCR) 10/01/19 10/01/19 10/02/19 21:35 Unknown 01:23 WBC Seg Neuts % (Manual) Lymphocytes % (Manual) Nucleated RBC % Seg Neutrophils # Man Lymphocytes # (Manual) INR D-Dimer ABG pH 7.327 L ABG pO2 75.1 L ABG O2 Saturation 94.5 L ABG Base Excess -4.4 L ABG Hemoglobin Oxyhemoglobin 92.8 L Chloride Carbon Dioxide BUN Creatinine Glucose POC Glucose 291 H Lactic Acid Phosphorus Magnesium Ferritin AST ALT Lactate Dehydrogenase C-Reactive Protein NT-Pro-B Natriuret Pep Albumin Urine Creatinine Coronavirus (PCR) Positive A 10/02/19 10/02/19 10/02/19 03:55 05:18 05:18 WBC 17.8 H Seg Neuts % (Manual) 93.0 H Lymphocytes % (Manual) 5.0 L Nucleated RBC % 1.0 H Seg Neutrophils # Man 16.6 H Lymphocytes # (Manual) 0.9 L INR D-Dimer ABG pH 7.308 L ABG pO2 129.3 H ABG O2 Saturation ABG Base Excess -4.9 L ABG Hemoglobin 16.1 H Oxyhemoglobin Chloride 111.1 H Carbon Dioxide 19 L BUN 44 H Creatinine 2.4 H D Glucose 227 H POC Glucose Lactic Acid Phosphorus Magnesium Ferritin AST ALT Lactate Dehydrogenase C-Reactive Protein NT-Pro-B Natriuret Pep Albumin Urine Creatinine Coronavirus (PCR) 10/02/19 10/02/19 10/02/19 07:15 15:28 17:57 WBC Seg Neuts % (Manual) Lymphocytes % (Manual) Nucleated RBC % Seg Neutrophils # Man Lymphocytes # (Manual) INR D-Dimer ABG pH ABG pO2 ABG O2 Saturation ABG Base Excess ABG Hemoglobin Oxyhemoglobin Chloride Carbon Dioxide BUN Creatinine Glucose POC Glucose 196 H 137 H Lactic Acid Phosphorus Magnesium Ferritin AST ALT Lactate Dehydrogenase C-Reactive Protein NT-Pro-B Natriuret Pep Albumin Urine Creatinine 336.4 H Coronavirus (PCR) 10/03/19 10/03/19 10/03/19 00:32 04:02 04:02 WBC 17.2 H Seg Neuts % (Manual) 95.0 H Lymphocytes % (Manual) 3.0 L Nucleated RBC % 2.0 H Seg Neutrophils # Man 16.3 H Lymphocytes # (Manual) 0.5 L INR D-Dimer ABG pH ABG pO2 ABG O2 Saturation ABG Base Excess ABG Hemoglobin Oxyhemoglobin Chloride 108.9 H Carbon Dioxide 19 L BUN 64 H Creatinine 2.1 H Glucose 212 H POC Glucose 184 H Lactic Acid Phosphorus Magnesium Ferritin AST ALT Lactate Dehydrogenase C-Reactive Protein NT-Pro-B Natriuret Pep Albumin Urine Creatinine Coronavirus (PCR) 10/03/19 10/03/19 10/03/19 04:26 05:20 11:22 WBC Seg Neuts % (Manual) Lymphocytes % (Manual) Nucleated RBC % Seg Neutrophils # Man Lymphocytes # (Manual) INR D-Dimer ABG pH 7.336 L ABG pO2 70.1 L ABG O2 Saturation 94.0 L ABG Base Excess -3.8 L ABG Hemoglobin Oxyhemoglobin 92.4 L Chloride Carbon Dioxide BUN Creatinine Glucose POC Glucose 197 H 248 H Lactic Acid Phosphorus Magnesium Ferritin AST ALT Lactate Dehydrogenase C-Reactive Protein NT-Pro-B Natriuret Pep Albumin Urine Creatinine Coronavirus (PCR) 10/03/19 10/03/19 10/03/19 11:58 18:44 23:51 WBC Seg Neuts % (Manual) Lymphocytes % (Manual) Nucleated RBC % Seg Neutrophils # Man Lymphocytes # (Manual) INR D-Dimer ABG pH ABG pO2 ABG O2 Saturation ABG Base Excess ABG Hemoglobin Oxyhemoglobin Chloride Carbon Dioxide BUN Creatinine Glucose POC Glucose 245 H 324 H 182 H Lactic Acid Phosphorus Magnesium Ferritin AST ALT Lactate Dehydrogenase C-Reactive Protein NT-Pro-B Natriuret Pep Albumin Urine Creatinine Coronavirus (PCR) 10/04/19 10/04/19 10/04/19 03:50 05:35 11:39 WBC Seg Neuts % (Manual) Lymphocytes % (Manual) Nucleated RBC % Seg Neutrophils # Man Lymphocytes # (Manual) INR D-Dimer ABG pH ABG pO2 129.4 H ABG O2 Saturation ABG Base Excess -3.5 L ABG Hemoglobin Oxyhemoglobin Chloride Carbon Dioxide BUN Creatinine Glucose POC Glucose 177 H 265 H Lactic Acid Phosphorus Magnesium Ferritin AST ALT Lactate Dehydrogenase C-Reactive Protein NT-Pro-B Natriuret Pep Albumin Urine Creatinine Coronavirus (PCR) Chest x-ray: image reviewed Allied health notes reviewed: RT
--- NOTE | 2019-10-04 13:00 | Progress Note ---
Assessment and Plan Assessment and plan: Sepsis. Continue IV antibiotics per ID. Follow-up blood cultures. Given elevated procalcitonin level we will continue with IV antibiotics Bilateral pneumonia. Etiology secondary COVID-19. Continue to follow up serial chest x-ray. COVID 19 infection. Actemra x1 and remdesivir. Continue to trend inflammatory markers. Consider convalescent plasma therapy per ID. COVID coagulopathy. Continue with full anticoagulation. Acute hypoxic respiratory failure. Etiology secondary to above. Continue on mechanical ventilation per pulmonary recommendations. Transaminitis. Etiology secondary to sepsis/COVID. Continue to trend LFTs. Acute kidney injury. Etiology secondary to ATN/sepsis. Continue to follow BMP 10/03/2019. Patient's daughter Evelio Plascencia has consented to convalescent plasma therapy. Await type and screen for patient enrollment. Continue mechanical ventilation per pulmonary. Patient currently AC mode ventilation rate of 20, tidal volume 450 FiO2 70% and PEEP of 12. Continue Solu-Medrol 40 mg IV daily. Wean sedation of propofol and fentanyl as needed. 10/04/2019. Convalescent plasma enrollment form has been submitted. Patient currently on mechanical ventilation AC mode rate 20, tidal volume 450 FiO2 100%. Continue IV Solu-Medrol. Wean sedation of propofol and fentanyl as needed. Patient not a candidate of remdesivir secondary to elevated creatinine. Continue ceftriaxone and azithromycin for total of 5 days. Continue to trend inflammatory markers. Prognosis is extremely guarded. The high probability of a clinically significant, sudden or life threatening deterioration of the [respiratory] system(s) required my full and direct attention, intervention and personal management. The aggregate critical care time was [40] minutes. This time is in addition to time spent performing reported procedures but includes the following: [x] Data Review and interpretation [x] Patient assessment and monitoring of vital signs [x] Documentation [x] Medication orders and management History Interval history: The patient is a 64-year-old female who came into the emergency room with complaints of shortness of breath and cough. She has a history of diabetes and hypertension. Due to significant hypoxia, she was intubated and placed on mechanical ventilation. COVID-19 test is positive. Additionally, her labs show ferritin 1646, procalcitonin 1.73, LDH 766, CRP 18.6, mild transaminitis, d- dimer 1957. Hospitalist Physical - Constitutional Vitals: Temp Pulse Resp BP Pulse Ox 97.7 F 86 21 126/80 92 10/04/19 08:00 10/04/19 12:08 10/04/19 08:00 10/04/19 12:08 10/04/19 12:08 General appearance: Present: well-nourished, other (Patient on mechanical ventilation) - EENT Eyes: Present: PERRL, EOM intact ENT: hearing intact, clear oral mucosa, dentition normal - Neck Neck: Present: supple, normal ROM - Respiratory Respiratory effort: normal Respiratory: bilateral: CTA - Cardiovascular Rhythm: regular Heart Sounds: Present: S1 & S2. Absent: gallop, rub - Extremities Extremities: no ischemia, No edema, Full ROM - Abdominal General gastrointestinal: soft, non-tender, non-distended, normal bowel sounds - Integumentary Integumentary: Present: clear, warm, dry - Neurologic Neurologic: CNII-XII intact, moves all extremities HEART Score - HEART Score Troponin: Troponin T 0.018 ng/mL (0.00-0.029) 10/01/19 05:36 Results - Labs CBC & Chem 7: 10/03/19 04:02 10/03/19 04:02 Labs: Laboratory Last Values WBC 17.2 K/mm3 (4.5-11.0) H 10/03/19 04:02 RBC 4.02 M/mm3 (3.65-5.03) 10/03/19 04:02 Hgb 12.0 gm/dl (10.1-14.3) 10/03/19 04:02 Hct 36.6 % (30.3-42.9) 10/03/19 04:02 MCV 91 fl (79-97) 10/03/19 04:02 MCH 30 pg (28-32) 10/03/19 04:02 MCHC 33 % (30-34) 10/03/19 04:02 RDW 14.8 % (13.2-15.2) 10/03/19 04:02 Plt Count 296 K/mm3 (140-440) 10/03/19 04:02 Lymph % (Auto) Harvesting Supervisor 10/01/19 06:31 [place] % (Auto) Harvesting Supervisor 10/01/19 06:31 Eos % (Auto) Harvesting Supervisor 10/01/19 06:31 Baso % (Auto) Harvesting Supervisor 10/01/19 06:31 Lymph # Harvesting Supervisor 10/01/19 06:31 [place] # Harvesting Supervisor 10/01/19 06:31 Eos # Harvesting Supervisor 10/01/19 06:31 Baso # Harvesting Supervisor 10/01/19 06:31 Add Manual Diff Complete 10/03/19 04:02 Total Counted 100 10/03/19 04:02 Seg Neutrophils % Harvesting Supervisor 10/03/19 04:02 Seg Neuts % (Manual) 95.0 % (40.0-70.0) H 10/03/19 04:02 Band Neutrophils % 1.0 % 10/03/19 04:02 Lymphocytes % (Manual) 3.0 % (13.4-35.0) L 10/03/19 04:02 Reactive Lymphs % (Man) 0 % 10/03/19 04:02 Monocytes % (Manual) 1.0 % (0.0-7.3) 10/03/19 04:02 Eosinophils % (Manual) 0 % (0.0-4.3) 10/03/19 04:02 Basophils % (Manual) 0 % (0.0-1.8) 10/03/19 04:02 Metamyelocytes % 0 % 10/03/19 04:02 Myelocytes % 0 % 10/03/19 04:02 Promyelocytes % 0 % 10/03/19 04:02 Blast Cells % 0 % 10/03/19 04:02 Nucleated RBC % 2.0 % (0.0-0.9) H 10/03/19 04:02 Seg Neutrophils # Harvesting Supervisor 10/01/19 06:31 Seg Neutrophils # Man 16.3 K/mm3 (1.8-7.7) H 10/03/19 04:02 Band Neutrophils # 0.2 K/mm3 10/03/19 04:02 Lymphocytes # (Manual) 0.5 K/mm3 (1.2-5.4) L 10/03/19 04:02 Abs React Lymphs (Man) 0.0 K/mm3 10/03/19 04:02 Monocytes # (Manual) 0.2 K/mm3 (0.0-0.8) 10/03/19 04:02 Eosinophils # (Manual) 0.0 K/mm3 (0.0-0.4) 10/03/19 04:02 Basophils # (Manual) 0.0 K/mm3 (0.0-0.1) 10/03/19 04:02 Metamyelocytes # 0.0 K/mm3 10/03/19 04:02 Myelocytes # 0.0 K/mm3 10/03/19 04:02 Promyelocytes # 0.0 K/mm3 10/03/19 04:02 Blast Cells # 0.0 K/mm3 10/03/19 04:02 WBC Morphology Not Reportable 10/03/19 04:02 Hypersegmented Neuts Not Reportable 10/03/19 04:02 Hyposegmented Neuts Not Reportable 10/03/19 04:02 Hypogranular Neuts Not Reportable 10/03/19 04:02 Smudge Cells Not Reportable 10/03/19 04:02 Toxic Granulation Not Reportable 10/03/19 04:02 Toxic Vacuolation Not Reportable 10/03/19 04:02 Dohle Bodies Not Reportable 10/03/19 04:02 Pelger-Huet Anomaly Not Reportable 10/03/19 04:02 Dona Rods Not Reportable 10/03/19 04:02 Platelet Estimate Consistent w auto 10/03/19 04:02 Clumped Platelets Not Reportable 10/03/19 04:02 Plt Clumps, EDTA Not Reportable 10/03/19 04:02 Large Platelets Not Reportable 10/03/19 04:02 Giant Platelets Not Reportable 10/03/19 04:02 Platelet Satelliting Not Reportable 10/03/19 04:02 Plt Morphology Comment Not Reportable 10/03/19 04:02 RBC Morphology Normal 10/03/19 04:02 Dimorphic RBCs Not Reportable 10/03/19 04:02 Polychromasia Not Reportable 10/03/19 04:02 Hypochromasia Not Reportable 10/03/19 04:02 Poikilocytosis Not Reportable 10/03/19 04:02 Anisocytosis Not Reportable 10/03/19 04:02 Microcytosis Not Reportable 10/03/19 04:02 Macrocytosis Not Reportable 10/03/19 04:02 Spherocytes Not Reportable 10/03/19 04:02 Pappenheimer Bodies Not Reportable 10/03/19 04:02 Sickle Cells Not Reportable 10/03/19 04:02 Target Cells Not Reportable 10/03/19 04:02 Tear Drop Cells Not Reportable 10/03/19 04:02 Ovalocytes Not Reportable 10/03/19 04:02 Helmet Cells Not Reportable 10/03/19 04:02 [place] Horse Bodies Not Reportable 10/03/19 04:02 [place] Rings Not Reportable 10/03/19 04:02 [place] Cells Not Reportable 10/03/19 04:02 Bite Cells Not Reportable 10/03/19 04:02 Crenated Cell Not Reportable 10/03/19 04:02 Elliptocytes Not Reportable 10/03/19 04:02 Acanthocytes (Spur) Not Reportable 10/03/19 04:02 Rouleaux Not Reportable 10/03/19 04:02 Hemoglobin C Crystals Not Reportable 10/03/19 04:02 Schistocytes Not Reportable 10/03/19 04:02 Malaria parasites Not Reportable 10/03/19 04:02 Cornelio Bodies Not Reportable 10/03/19 04:02 Hem Pathologist Commnt No 10/03/19 04:02 PT 14.5 Sec. (12.2-14.9) 10/01/19 05:36 INR 1.15 (0.87-1.13) H 10/01/19 05:36 APTT 28.6 Sec. (24.2-36.6) 10/01/19 05:36 D-Dimer 1957.06 ng/mlDDU (0-234) H 10/01/19 12:24 ABG pH 7.352 pH Units (7.350-7.450) 10/04/19 03:50 ABG pCO2 40.1 mm Hg 10/04/19 03:50 ABG pO2 129.4 mm Hg (80.0-90.0) H 10/04/19 03:50 ABG HCO3 21.7 mmol/L (20.0-26.0) 10/04/19 03:50 ABG O2 Saturation 98.4 % (95.0-99.0) 10/04/19 03:50 ABG O2 Content 20.0 (0.0-44) 10/04/19 03:50 ABG Base Excess -3.5 mmol/L (-2.0-3.0) L 10/04/19 03:50 ABG Hemoglobin 14.6 gm/dl (12.0-16.0) 10/04/19 03:50 ABG Carboxyhemoglobin 1.5 % (0.0-5.0) 10/04/19 03:50 ABG Methemoglobin 0.3 % (0.0-1.5) 10/04/19 03:50 Oxyhemoglobin 96.6 % (95.0-99.0) 10/04/19 03:50 FiO2 80 % 10/04/19 03:50 Sodium 144 mmol/L (137-145) 10/03/19 04:02 Potassium 4.3 mmol/L (3.6-5.0) 10/03/19 04:02 Chloride 108.9 mmol/L (98-107) H 10/03/19 04:02 Carbon Dioxide 19 mmol/L (22-30) L 10/03/19 04:02 Anion Gap 20 mmol/L 10/03/19 04:02 BUN 64 mg/dL (7-17) H 10/03/19 04:02 Creatinine 2.1 mg/dL (0.7-1.2) H 10/03/19 04:02 Estimated GFR 29 ml/min 10/03/19 04:02 BUN/Creatinine Ratio 30 % 10/03/19 04:02 Glucose 212 mg/dL (65-100) H 10/03/19 04:02 POC Glucose 265 (70-105) H 10/04/19 11:39 Ketones Quantitative Negative (Negative) 10/01/19 06:31 Lactic Acid 1.80 mmol/L (0.7-2.0) 10/02/19 08:04 Calcium 9.1 mg/dL (8.4-10.2) 10/03/19 04:02 Phosphorus 4.70 mg/dL (2.5-4.5) H 10/01/19 12:45 Magnesium 2.50 mg/dL (1.7-2.3) H 10/01/19 12:45 Ferritin 1646.0 ng/mL (13.0-400.0) H 10/01/19 12:24 Total Bilirubin 0.30 mg/dL (0.1-1.2) 10/01/19 05:36 Direct Bilirubin < 0.2 mg/dL (0-0.2) 10/01/19 05:36 Indirect Bilirubin 0.1 mg/dL 10/01/19 05:36 AST 54 units/L (5-40) H 10/01/19 05:36 ALT 64 units/L (7-56) H 10/01/19 05:36 Alkaline Phosphatase 94 units/L (35-129) 10/01/19 05:36 Lactate Dehydrogenase 766 units/L (91-180) H 10/01/19 12:24 Troponin T 0.018 ng/mL (0.00-0.029) 10/01/19 05:36 C-Reactive Protein 18.60 mg/dL (0.00-1.30) H 10/01/19 12:24 NT-Pro-B Natriuret Pep 1525 pg/mL (0-900) H 10/01/19 12:45 Total Protein 6.6 g/dL (6.3-8.2) 10/01/19 05:36 Albumin 3.4 g/dL (3.9-5) L 10/01/19 05:36 Albumin/Globulin Ratio 1.1 % 10/01/19 05:36 Procalcitonin 1.73 ng/mL (<0.15) 10/01/19 12:24 Urine Creatinine 336.4 mg/dL (0.1-20.0) H 10/02/19 15:28 Urine Sodium 10 mmol/L 10/02/19 15:28 Coronavirus (PCR) Positive (Negative) A 10/01/19 Unknown Blood Type B POSITIVE 10/03/19 13:50 Antibody Screen Negative 10/03/19 13:50 Microbiology: Microbiology 10/01/19 05:36 Peripheral/Venous Blood Culture - Preliminary Coag Negative Staphylococcus 10/01/19 05:38 Peripheral/Venous Blood Culture - Preliminary NO GROWTH AFTER 72 HOURS 10/01/19 Unknown Tracheal Aspirate Sputum Culture - Final - Diagnostic Impressions Diagnostic Impressions: Echocardiogram 10/02/19 19:48 Transthoracic Echocardiogram Indication: Elevated BNP BP: 78/37 HR: 75 Conclusions *Global left ventricular systolic function is normal. *The estimated ejection fraction is 50-55%. *The right ventricular global systolic function is normal. *There is mild to moderate tricuspid regurgitation. *The right ventricular systolic pressure is calculated at 75 mmHg. *There is no evidence of mitral regurgitation. *There is no evidence of aortic regurgitation. *There is trace pulmonic regurgitation. *There is no pericardial effusion. *There is evidence of severe pulmonary hypertension. Findings Left Ventricle: Global left ventricular wall motion and contractility are within normal limits. Global left ventricular systolic function is normal. The estimated ejection fraction is 50-55%. Abnormal left ventricular diastolic filling is observed, consistent with impaired relaxation. Left Atrium: The left atrial chamber size is normal. Right Ventricle: The right ventricular cavity size is normal. The right ventricular global systolic function is normal. Right Atrium: The right atrial cavity size is normal. Aortic Valve: The aortic valve leaflets are mildly thickened. There is no evidence of aortic regurgitation. Mitral Valve: The mitral valve leaflets are mildly thickened. There is no evidence of mitral regurgitation. Tricuspid Valve: The tricuspid valve leaflets are normal. There is mild to moderate tricuspid regurgitation. The right ventricular systolic pressure is calculated at 75 mmHg. There is evidence of severe pulmonary hypertension. Pulmonic Valve: The pulmonic valve appears normal. There is trace pulmonic regurgitation. Pericardium: There is no pericardial effusion. Aorta: The aorta appears normal. Venous: The inferior vena cava appears normal. Measurements Chambers 2D Name Value Normal Range IVSd (2D) 1.1 cm (0.6 - 1.1) LVPWd (2D) 1.03 cm (0.6 - 1.1) IVS:LVPW ratio (2D) 1.07 ratio - LVIDd (2D) 2.7 cm (3.7 - 5.6) LVIDs (2D) 2.02 cm (2 - 3.8) LV FS (Teichholz) (2D) 25.2 % - LV FS (cube) (2D) 25.2 % - EF Teichholz (2D) 51.5 % - Ao root diameter (2D) 2.4 cm (2 - 3.7) LA dimension (AP) 2D 2.9 cm (1.9 - 4) LA:Ao ratio (2D) 1.21 ratio - Volumes/Mass Name Value Normal Range LA ESV SP 4CH (MOD) 23 ml - LA ESV SP 2CH (MOD) 21 ml - LA ESV BP (MOD) 22 ml - LA ESV BP (MOD) index 13.6 ml/m2 - LV EDV SP 4CH (MOD) 54 ml - LV ESV SP 4CH (MOD) 20 ml - EF SP 4CH (MOD) 63 % - LV EDV SP 2CH (MOD) 48 ml - LV ESV SP 2CH (MOD) 20 ml - EF SP 2CH (MOD) 58 % - LV EDV BP 51 ml - LV ESV BP 20 ml - BP EF (MOD) 61 % - Diastolic/Systolic Function Name Value Normal Range MV E-wave Vmax 0.94 m/sec - MV deceleration time 218 msec - MV A-wave Vmax 1.06 m/sec - MV E:A ratio 0.9 ratio - LV septal e' Vmax 0.08 m/sec - LV lateral e' Vmax 0.08 m/sec - LV E:e' septal ratio 11.3 ratio - LV E:e' lateral ratio 11.4 ratio - Aortic Valve Name Value Normal Range AV VTI 29.3 cm - AV mean gradient 8 mmHg - LVOT diameter 2 cm - LVOT VTI 29.7 cm - LVOT mean gradient 6 mmHg - SV LVOT 93 ml - YASMEEN (continuity VTI) 3.18 cm2 - Tricuspid Valve Name Value Normal Range TR Vmax 4.25 m/sec - TR peak gradient 72 mmHg - RAP 3 mmHg - RVSP 75 mmHg - Pulmonic Valve/Qp:Qs Name Value Normal Range PV Vmax 1.11 m/sec - PV peak gradient 5 mmHg - WA end-diastolic Vmax 1.71 m/sec - PV acceleration time 77 msec - Alexis/IV: Voiding Method Indwelling Catheter IV Catheter Type [Left Forearm INT / Saline Lock ] IV Catheter Type [Right Hand] Peripheral IV IV Catheter Type [Left Foot] INT / Saline Lock IV Catheter Type [Right Peripheral IV Forearm] Active Medications - Current Medications Current Medications: Generic Name Dose Route Start Last Admin Trade Name Freq PRN Reason Stop Dose Admin Acetaminophen 650 mg 10/01/19 09:10 Tylenol PO Q6H PRN Pain MILD(1-3)/Fever >100.5/PALOMARES Albuterol 2.5 mg 10/01/19 09:10 Proventil IH Q3HRT PRN Shortness Of Breath Amlodipine Besylate 10 mg 10/01/19 10:00 10/04/19 10:22 Amlodipine PO 10 mg QDAY CLARKE Administration Lipase/Protease/Amylase 1 each 10/02/19 11:44 Pancreaze 10,500 Unit FEEDTUBE PRN PRN For Clogged Feeding Tube Ascorbic Acid 500 mg 10/01/19 16:00 10/04/19 10:21 Vitamin C PO 500 mg BID CLARKE Administration Azithromycin 500 mg 10/02/19 10:00 10/04/19 10:22 Zithromax PO 10/06/19 10:01 500 mg QDAY CLARKE Administration Dextrose 50 ml 10/01/19 09:10 D50w (25gm) Syringe IV Q30MIN PRN Hypoglycemia Protocol Enoxaparin Sodium 60 mg 10/02/19 22:00 10/03/19 21:53 Enoxaparin SUB-Q 60 mg Q24H CLARKE Administration Famotidine 20 mg 10/04/19 10:00 10/04/19 10:21 Pepcid PO 20 mg DAILY CLARKE Administration Fentanyl 50 mcg 10/01/19 15:03 Sublimaze IV Q10MIN PRN ANALGESIA Hydralazine HCl 10 mg 10/01/19 09:20 10/04/19 10:00 Apresoline IV 10 mg Q4HR PRN Administration Hypertension Hydrophilic Ointment 1 applic 10/01/19 13:33 Vaseline Lip Therapy TP Q2HR PRN Dry Lips Ceftriaxone Sodium 2 gm in 100 mls @ 200 mls/hr 10/02/19 10:00 10/04/19 10:21 Rocephin/Ns 2 Gm/100 Ml IV 10/06/19 10:29 200 mls/hr Q24HR CLARKE Administration Protocol Propofol 1,000 mg in 100 mls @ 1.905 mls/hr 10/01/19 14:00 10/04/19 01:30 Diprivan 10 Mg/Ml IV 10 mcg/kg/min TITR CLARKE 3.81 mls/hr Titration Protocol 5 MCG/KG/MIN Fentanyl Citrate 2,000 mcg in 100 mls @ 3.175 mls/hr 10/01/19 16:00 10/04/19 05:40 Fentanyl Drip Premix IV 3 mcg/kg/hr TITR CLARKE 9.525 mls/hr Administration Protocol 1 MCG/KG/HR Nicardipine HCl 50 mg/ Sodium 250 mls @ 25 mls/hr 10/01/19 16:00 10/01/19 16:00 Chloride IV 0 mg/hr TITR CLARKE 0 mls/hr Titration Protocol 5 MG/HR Insulin Human Isoph/Insulin Regular 30 unit 10/01/19 10:00 10/04/19 09:20 Humulin 70/30 SUB-Q 30 unit BIDDIAB CLARKE Administration Insulin Human Lispro 0 unit 10/01/19 12:00 10/04/19 05:55 Humalog SUB-Q 2 unit Q6HR CLARKE Administration Protocol Methylprednisolone Sodium Succinate 40 mg 10/03/19 14:00 10/04/19 05:55 Solu-Medrol IV 40 mg Q8HR CLARKE Administration Metoclopramide HCl 10 mg 10/01/19 09:10 Reglan IV Q6H PRN Nausea And Vomiting Metoprolol Tartrate 25 mg 10/03/19 16:00 10/04/19 10:21 Metoprolol PO 25 mg BID CLARKE Administration Multi-Ingred Cream/Lotion/Oil/Oint 1 applic 10/01/19 13:33 Artificial Tears Ophth Oint OU Q4HR PRN Dry Eye(s) Naloxone HCl 0.1 mg 10/01/19 09:10 Naloxone IV Q2MIN PRN Res Rate </= 8 or 02 SAT < 92% Simple Syrup 15 ml 10/02/19 11:44 Simple Syrup FEEDTUBE PRN PRN Hypoglycemia Simple Syrup 30 ml 10/02/19 11:44 Simple Syrup FEEDTUBE PRN PRN Hypoglycemia Sodium Bicarbonate 325 mg 10/02/19 11:44 Sodium Bicarbonate FEEDTUBE PRN PRN For Clogged Feeding Tube Sodium Chloride 10 ml 10/01/19 10:00 10/04/19 10:22 Sodium Chloride Flush Syringe 10 Ml IV 10 ml BID CLARKE Administration Sodium Chloride 10 ml 10/01/19 09:10 Sodium Chloride Flush Syringe 10 Ml IV PRN PRN LINE FLUSH Zinc Sulfate 220 mg 10/01/19 16:00 10/04/19 10:21 Zinc Sulfate PO 220 mg BID CLARKE Administration Nutrition/Malnutrition Assess - Dietary Evaluation Nutrition/Malnutrition Findings: Nutrition Notes Start: 10/01/19 14:13 Freq: Status: Active Protocol: Document 10/04/19 12:42 LM (Rec: 10/04/19 12:56 LM [id number]) Nutrition Notes Need for Assessment generated from: MD Order Initial or Follow up Reassessment Current Diagnosis Acute Kidney Injury,Diabetes, Hypertension Other Pertinent Diagnosis COVID-19 (+) Current Diet Vital AF 1.2 at 45ml/hr Labs/Tests POC glu 265 7/8 BUN 64 Cr 2.1 Pertinent Medications Solumedrol Zinc Height 5 ft 1 in Weight 63.503 kg [place] Body Weight (kg) 47.72 BMI 26.4 Weight Status Overweight Subjective/Other Information MD consult to write/manage TF. Burn Absent Trauma Absent GI Symptoms None Current % PO Negligible Minimum of two criteria No physical signs of malnutrition #1 Nutrition Diagnosis Inadequate oral intake Diagnosis Progress(for reassessment Continues documentation) Is patient on ventilator? Yes Is Patient Ambulatory and/or Out of Bed No REE-([facility]-confined to bed) 1358.172 Calculation Used for Recommendations [facility] Additional Notes Protein needs are 76-127g (1.2 -2g/kg) Fluid needs are 1ml/kcal Nutrition Intervention Change Diet Order: TF Nutrition Support: Change to Nepro 1.8 at 30ml/hr Flush 130ml q4h Kcal 1,296 Protein (gm) 58 Fluid (mL) 523 Goal #1 Meet at least 75% of kcal and protein needs Anticipated Discharge Needs: Unable to determine at this time Follow-Up By: 10/08/19 Additional Comments F/U for TF change/tolerance
[2019-10-04] MEDS ORDERED: MINERAL OIL/PETROLATUM, WHITE OPHTH OINT 3.5 GM OU PRN (14:47)
[2019-10-04] MEDS ORDERED: SODIUM CHLORIDE 0.9% 500 ML IVPB IV PRN (14:47)
[2019-10-04] MEDS ORDERED: MIDAZOLAM 2 MG/2 ML INJ IV PRN (14:47)
[2019-10-04] MEDS ORDERED: LIP THERAPY VASELINE TP PRN (14:47)
--- NOTE | 2019-10-04 15:03 | Progress Note ---
Assessment and Plan Cultures: 10/01/2019 coronavirus PCR: Positive 10/01/2019 blood culture: CoNS in 1/4 bottles 10/01/2019 tracheal aspirate culture: No growth A/P: 64-year-old female with diabetes, hypertension admitted with: #Bilateral pneumonia: Secondary to COVID-19. Inflammatory markers are significantly elevated. s/p Actemra on 10/01/2019. Continue steroids. Creatinine elevated, not a candidate for Remdesivir #Acute hypoxic respiratory failure: On mechanical ventilation. #Mild transaminitis: Likely secondary to COVID-19 #CoNS bacteremia: CoNS in 1/4 bottles, likely a contaminant. #FANI: creatinine high. Recs: Continue steroids Creatinine elevated, hence, not a candidate for Remdesivir Continue Ceftriaxone, azithromycin for total 5 days trend ferritin, d-dimer, CRP every 2 days for risk stratification and to assess disease progression continue with full anticoagulation Consider enrollment for convalescent plasma Ashly Booker MD, FACP [facility] ([facility] C: [phone] O: [phone] F: [phone] Subjective Date of service: 10/04/19 Principal diagnosis: Ac. hypoxemic resp failure; ARDS; COVID-19 virus infxn; PNA; Severe sepsis Interval history: No fever. Remains intubated, sedated, on the vent. Objective - Exam Narrative Exam: Physical Exam (reviewed in chart due to PPE conservation) Constitutional: intubated, sedated, on the vent Head, Ears, Nose: normocephalic, atraumatic Eyes: limited due to PPE conservation strategy Neck: intubated Oral: intubated Cardiovascular: limited due to PPE conservation strategy Respiratory: limited due to PPE conservation strategy GI: limited due to PPE conservation strategy Musculoskeletal: limited due to PPE conservation strategy Skin: limited due to PPE conservation strategy Hem/Lymphatic: limited due to PPE conservation strategy Psych: no agitation Neurological: sedated, intubated, on the vent, exam limited - Constitutional Vitals: Vital Signs Temp Pulse Resp BP Pulse Ox 97.7 F 86 21 126/80 92 10/04/19 08:00 10/04/19 12:08 10/04/19 08:00 10/04/19 12:08 10/04/19 12:08 Temperature -Last 24 Hours Temperature 97.7 F Temperature 97.6 F Temperature 98.2 F Temperature 98.1 F Temperature 98 F - Labs CBC & Chem 7: 10/03/19 04:02 10/03/19 04:02 Labs: Abnormal lab results 10/03/19 10/03/19 10/04/19 Range/Units 18:44 23:51 03:50 ABG pO2 129.4 H (80.0-90.0) mm Hg ABG Base Excess -3.5 L (-2.0-3.0) mmol/L POC Glucose 324 H 182 H (70-105) 10/04/19 10/04/19 Range/Units 05:35 11:39 ABG pO2 (80.0-90.0) mm Hg ABG Base Excess (-2.0-3.0) mmol/L POC Glucose 177 H 265 H (70-105)
[2019-10-04] MEDS ORDERED: SODIUM CHLORIDE 0.9% 250ML 250 ML IV ONE ×2 (15:30→17:20)
--- NOTE | 2019-10-04 15:34 | XRay Report ---
CHEST 1 VIEW INDICATION: ETT placement. COMPARISON: 10/04/2019 FINDINGS: Support devices: Endotracheal tube terminates 3.6 cm superior to the natasha. Nasogastric tube is foll owed to the mid stomach. Heart: Within normal limits. Lungs/Pleura: Patchy bilateral lung densities are identified, left greater than right. No pneumothora x. Additional findings: None. IMPRESSION: Adequate placement of lines and tubes. Bilateral lung infiltrates concerning for viral infection. Signer Name: Beka Riley Jr, MD Signed: 10/04/2019 3:29 PM Workstation Name: [id number]
[2019-10-04] MEDS ORDERED: SODIUM CHLORIDE 0.9% 500 ML 500 ML IV SCH (16:00)
[2019-10-04] MEDS: MIDAZOLAM 100 MG in SODIUM CHLORIDE 0.9% 80 ML IV SCH (16:17)
--- NOTE | 2019-10-04 16:42 | Procedure Note ---
Date of procedure: 10/04/19 Pre-op diagnosis: COVID ARDS Post-op diagnosis: same Procedure: Left radial arterial line- placed One attempt. Good wave form Estimated blood loss: none Pathology: none Condition: critical Disposition: ICU
[2019-10-04 17:16] LABS: Hematocrit 40.2 % (30.3-42.9); Mean Corpuscular HGB Conc 32 % (30-34); Mean Corpuscular Volume 92 fl (79-97); Red Blood Count 4.37 M/mm3 (3.65-5.03)
[2019-10-04 17:19] LABS: Platelet Count 93 K/mm3 (140-440)
[2019-10-04] MEDS ORDERED: SODIUM CHLORIDE 0.9% 1000 ML 1,000 ML ONE (17:21)
[2019-10-04 17:25] LABS: Calcium 8.9 mg/dL (8.4-10.2)
[2019-10-04] MEDS: NORepinephrine/NS 4 MG-250 ML 4 MG/250 ML BAG IV SCH ×2 (17:44→22:15)
[2019-10-04] MEDS: D5W/0.9% NACL 1,000 ML IV SCH (17:47)
[2019-10-04 18:16] LABS: Basophils % (Manual) 0 % (0.0-1.8); Eosinophils % (Manual) 0 % (0.0-4.3); RBC Morphology Normal; Total Cells Counted 100
[2019-10-04 18:59] LABS: ABG Base Excess -7.2 mmol/L (-2.0-3.0); ABG HCO3 18.1 mmol/L (20.0-26.0); ABG Methemoglobin 0.5 % (0.0-1.5); ABG Oxygen Saturation 99.1 % (95.0-99.0); ABG PCO2 35.8 mm Hg; ABG PH 7.322 pH Units (7.350-7.450); ABG PO2 183.3 mm Hg (80.0-90.0)
[2019-10-04] MEDS: ENOXAPARIN 60 MG/0.6 ML INJ SUB-Q SCH (22:15)
[2019-10-05] MEDS: INSULIN LISPRO 100 UNIT/ML SUB-Q SCH ×3 (00:43→12:03)
[2019-10-05 04:21] LABS: ABG Base Excess -8.3 mmol/L (-2.0-3.0); ABG HCO3 19.4 mmol/L (20.0-26.0); ABG PCO2 48.2 mm Hg; ABG PH 7.223 pH Units (7.350-7.450); ABG PO2 93.7 mm Hg (80.0-90.0)
[2019-10-05 04:45] LABS: ABG Methemoglobin TNR % (0.0-1.5); ABG Oxygen Saturation TNR % (95.0-99.0)
[2019-10-05] MEDS: NORepinephrine/NS 4 MG-250 ML 4 MG/250 ML BAG IV SCH ×2 (04:58→15:47)
[2019-10-05] MEDS: methylPREDNISolone Sod Succinate 40 MG/1 ML INJ IV SCH ×3 (05:00→21:04)
[2019-10-05] MEDS: MIDAZOLAM 100 MG in SODIUM CHLORIDE 0.9% 80 ML IV SCH (06:13)
[2019-10-05] MEDS: D5W/0.9% NACL 1,000 ML IV SCH (06:14)
[2019-10-05 07:14] LABS: Hematocrit 37.6 % (30.3-42.9); Hemoglobin 12.1 gm/dl (10.1-14.3); Mean Corpuscular HGB Conc 32 % (30-34); Mean Corpuscular Volume 93 fl (79-97); Red Blood Count 4.05 M/mm3 (3.65-5.03); Red Cell Distribution Width 16.6 % (13.2-15.2)
[2019-10-05 07:35] LABS: Platelet Count 78 K/mm3 (140-440)
[2019-10-05 07:38] LABS: Calcium 8.4 mg/dL (8.4-10.2)
[2019-10-05] MEDS: fentaNYL DRIP Premix 2,000 MCG/100 ML BAG IV SCH ×3 (08:48→22:35)
[2019-10-05] MEDS: INSULIN NPH/REGULAR 70/30 INJ SUB-Q SCH (08:49)
--- NOTE | 2019-10-05 09:09 | XRay Report ---
CHEST 1 VIEW 10/05/2019 7:56 AM INDICATION / CLINICAL INFORMATION: follow up respiratory failure. COMPARISON: 10/04/2019 FINDINGS: SUPPORT DEVICES: Left upper extremity PICC is in place with the tip projecting over the mid SVC. Othe r lines and tubes appear stable. HEART / MEDIASTINUM: Stable. LUNGS / PLEURA: Stable diffuse hazy bilateral opacities. No pneumothorax. ADDITIONAL FINDINGS: No significant additional findings. IMPRESSION: 1. No adverse change from the prior exam. Signer Name: Jovanni Davis MD Signed: 10/05/2019 9:05 AM Workstation Name: [id number]
--- NOTE | 2019-10-05 10:22 | Consultation ---
History of Present Illness - Reason for Consult Consult date: 10/05/19 acute renal failure, metabolic acidosis Requesting physician: PREET QUINONES - History of Present Illness This is a 64 yo F with past medical history of hypertension, Diabetes, who initially presented to [facility] on 09/30, BIBEMS, with complaints of shortness of breath. 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 COVID 19 test was positive, pt' course was complicated by respiratory failure with hypoxia, initially placed on BIPAP, however due to worsening resp failure, required intubation/ventilator support. Pt was treated with Actemra on 09/30, IV steroids started on 10/02. Pt was not a candidate for remdesivir d/t FANI. Pt developed progressive renal failure with BUN/Cr at 34/1.4mg/dl on admission, now rising to 101/3.2mg/dl, along with worsening metabolic acidosis, for which r enal consult is requested. pt's course was also complicated by septic shock, pt was initiated on levophed. Past History Past Medical History: hypertension, hyperlipidemia Past Surgical History: No surgical history Social history: no significant social history Family history: no significant family history Medications and Allergies Allergies Allergy/AdvReac Type Severity Reaction Status Date / Time No Known Allergies Allergy Verified 10/01/19 06:31 Active Meds: Active Medications Acetaminophen (Tylenol) 650 mg PO Q6H PRN PRN Reason: Pain MILD(1-3)/Fever >100.5/PALOMARES Albuterol (Proventil) 2.5 mg IH Q3HRT PRN PRN Reason: Shortness Of Breath Lipase/Protease/Amylase (Pancreaze Dr 10,500 Unit) 1 each FEEDTUBE PRN PRN PRN Reason: For Clogged Feeding Tube Ascorbic Acid (Vitamin C) 500 mg PO BID [facility] Last Admin: 10/04/19 21:59 Dose: 500 mg Documented by: Azithromycin (Zithromax) 500 mg PO QDAY [facility] Stop: 10/06/19 10:01 Last Admin: 10/04/19 10:22 Dose: 500 mg Documented by: Dextrose (D50w (25gm) Syringe) 50 ml IV Q30MIN PRN; Protocol PRN Reason: Hypoglycemia Enoxaparin Sodium (Enoxaparin) 30 mg SUB-Q QDAY@2200 CLARKE Famotidine (Pepcid) 20 mg PO DAILY CLARKE Last Admin: 10/04/19 10:21 Dose: 20 mg Documented by: Fentanyl (Sublimaze) 50 mcg IV Q10MIN PRN PRN Reason: ANALGESIA Hydralazine HCl (Apresoline) 10 mg IV Q4HR PRN PRN Reason: Hypertension Last Admin: 10/04/19 10:00 Dose: 10 mg Documented by: Hydrophilic Ointment (Vaseline Lip Therapy) 1 applic TP Q2HR PRN PRN Reason: Dry Lips Hydrophilic Ointment (Vaseline Lip Therapy) 1 applic TP Q2HR PRN PRN Reason: Dry Lips Ceftriaxone Sodium (Rocephin/Ns 2 Gm/100 Ml) 2 gm in 100 mls @ 200 mls/hr IV Q24HR CLARKE; Protocol Stop: 10/06/19 10:29 Last Admin: 10/04/19 10:21 Dose: 200 mls/hr Documented by: Propofol (Diprivan 10 Mg/Ml) 1,000 mg in 100 mls @ 1.905 mls/hr IV TITR CLARKE; Protocol Last Admin: 10/05/19 08:41 Dose: 45 mcg/kg/min, 17.146 mls/hr Documented by: Fentanyl Citrate (Fentanyl Drip Premix) 2,000 mcg in 100 mls @ 3.175 mls/hr IV TITR CLARKE; Protocol Last Admin: 10/05/19 08:48 Dose: 4 mcg/kg/hr, 12.701 mls/hr Documented by: Midazolam HCl 100 mg/ Sodium (Chloride) 100 mls @ 2 mls/hr IV TITR CLARKE; Protocol Last Admin: 10/05/19 06:13 Dose: 5 mg/hr, 5 mls/hr Documented by: Sodium Chloride (Nacl 0.9% 500 Ml) 500 mls @ 10 mls/hr IV DIRECT CL[facility]KE Norepinephrine (Levophed Drip 4 Mg/Ns 250 Ml) 4 mg in 250 mls @ 37.5 mls/hr IV TITR CLARKE; Protocol Last Titration: 10/05/19 06:14 Dose: 8 mcg/min, 30 mls/hr Documented by: Dextrose/Sodium Chloride (D5ns) 1,000 mls @ 75 mls/hr IV DIRECT CLARKE Last Admin: 10/05/19 06:14 Dose: 75 mls/hr Documented by: Sodium Bicarbonate 150 meq/ (Sterile Water) 1,150 mls @ 75 mls/hr IV DIRECT [facility] Insulin Human Isoph/Insulin Regular (Humulin 70/30) 40 unit SUB-Q BIDDIAB [facility] Insulin Human Isoph/Insulin Regular (Humulin 70/30) 10 unit SUB-Q ONCE ONE Stop: 10/05/19 11:01 Insulin Human Lispro (Humalog) 0 unit SUB-Q Q6HR [facility]; Protocol Last Admin: 10/05/19 05:08 Dose: 8 unit Documented by: Methylprednisolone Sodium Succinate (Solu-Medrol) 40 mg IV Q8HR [facility] Last Admin: 10/05/19 05:00 Dose: 40 mg Documented by: Metoclopramide HCl (Reglan) 10 mg IV Q6H PRN PRN Reason: Nausea And Vomiting Midazolam HCl (Versed) 2 mg IV Q10MIN PRN PRN Reason: Sedation Multi-Ingred Cream/Lotion/Oil/Oint (Artificial Tears Ophth Oint) 1 applic OU Q4HR PRN PRN Reason: Dry Eye(s) Multi-Ingred Cream/Lotion/Oil/Oint (Artificial Tears Ophth Oint) 1 applic OU Q4HR PRN PRN Reason: Dry Eye(s) Naloxone HCl (Naloxone) 0.1 mg IV Q2MIN PRN PRN Reason: Res Rate </= 8 or 02 SAT < 92% Simple Syrup (Simple Syrup) 15 ml FEEDTUBE PRN PRN PRN Reason: Hypoglycemia Simple Syrup (Simple Syrup) 30 ml FEEDTUBE PRN PRN PRN Reason: Hypoglycemia Sodium Bicarbonate (Sodium Bicarbonate) 325 mg FEEDTUBE PRN PRN PRN Reason: For Clogged Feeding Tube Sodium Chloride (Sodium Chloride Flush Syringe 10 Ml) 10 ml IV BID [facility] Last Admin: 10/04/19 21:59 Dose: 10 ml Documented by: Sodium Chloride (Sodium Chloride Flush Syringe 10 Ml) 10 ml IV PRN PRN PRN Reason: LINE FLUSH Sodium Chloride (Nacl 0.9% 500 Ml) 5 ml IV DIRECT PRN PRN Reason: [employer] Zinc Sulfate (Zinc Sulfate) 220 mg PO BID [facility] Last Admin: 10/04/19 21:59 Dose: 220 mg Documented by: Review of Systems ROS unobtainable: due to endotracheal tube, due to mental status Exam - Vital Signs Vital signs: Vital Signs Pulse Resp Pulse Ox 130 H 23 66 L 10/01/19 05:00 10/01/19 05:00 10/01/19 05:00 - Physical Exam Narrative exam: Exam deferred d/t PPE conservation management, reviewed in chart, Results - Lab Results 10/05/19 06:00 10/05/19 06:00 Most recent lab results ABG pH 7.223 pH Units (7.350-7.450) L 10/05/19 04:00 ABG pCO2 48.2 mm Hg 10/05/19 04:00 ABG pO2 93.7 mm Hg (80.0-90.0) H 10/05/19 04:00 ABG HCO3 19.4 mmol/L (20.0-26.0) L 10/05/19 04:00 ABG O2 Saturation TNR 10/05/19 04:00 Calcium 8.4 mg/dL (8.4-10.2) 10/05/19 06:00 Phosphorus 4.70 mg/dL (2.5-4.5) H 10/01/19 12:45 Magnesium 2.50 mg/dL (1.7-2.3) H 10/01/19 12:45 Urine Creatinine 336.4 mg/dL (0.1-20.0) H 10/02/19 15:28 Urine Sodium 10 mmol/L 10/02/19 15:28 Assessment and Plan - Patient Problems (1) Acute kidney failure with tubular necrosis Current Visit: Yes Status: Acute Plan to address problem: Suspect FANI secondary to acute tubular necrosis in the setting of septic shock, superimposed on pre-renal azotemia, as suggested by low urine Na at 10 on 10/01. pt with decreased UOP overnight. Agree with bicarb gtt at 75ml/hr given also worsening metabolic acidosis. Cont vasopressor support with levo to maintain MAP > 65mmHg. Will recheck UA, urine lytes and urine p/c ratio. No emergent indication for renal replacemen therapy at present, will monitor lytes, renal parameters closely and make further recommendations (2) Pneumonia due to severe acute respiratory syndrome coronavirus 2 (SARS-CoV-2) Current Visit: Yes Status: Acute Plan to address problem: treatment as per ID/pulm/CCM (3) Metabolic acidosis Current Visit: Yes Status: Acute Plan to address problem: started D5W + 150meq/L Na bicarb at 75ml/hr, if metabolic acidosis is refractory to IV bicarb and renal function continues to decline, will consider HD (4) Acute respiratory failure Current Visit: Yes Status: Acute Qualifiers: Respiratory failure complication: hypoxia Qualified Code(s): J96.01 - Acute respiratory failure with hypoxia Plan to address problem: vent support as per ICU team (5) Hypoxia Current Visit: Yes Status: Acute (6) Hyperkalemia Current Visit: Yes Status: Acute Plan to address problem: mild hyperkalemia in the setting of FANI/met acidosis. treated medically incl. bicarb gtt.
[2019-10-05] MEDS: ASCORBIC ACID 500 MG TAB PO SCH ×2 (10:55→21:04)
[2019-10-05] MEDS: cefTRIAXone/NS 2 GM/100 ML 2 GM/100 ML BAG IV SCH (10:55)
[2019-10-05] MEDS: ZINC SULFATE 220 MG CAP PO SCH ×2 (10:55→21:04)
[2019-10-05] MEDS: AZITHROMYCIN 250 MG TAB PO SCH (10:55)
[2019-10-05] MEDS: FAMOTIDINE 20 MG TAB PO SCH (10:55)
[2019-10-05] MEDS ORDERED: SODIUM BICARBONATE 150 MEQ in DEXTROSE 5% IN WATER 1,000 ML IV SCH (11:00)
[2019-10-05] MEDS ORDERED: INSULIN NPH/REGULAR 70/30 INJ SUB-Q ONE (11:00)
--- NOTE | 2019-10-05 11:44 | Progress Note ---
Assessment and Plan Assessment and plan: Sepsis. Continue IV antibiotics per ID. Follow-up blood cultures. Given elevated procalcitonin level we will continue with IV antibiotics Bilateral pneumonia. Etiology secondary COVID-19. Continue to follow up serial chest x-ray. ARDS. Continue vent per pulmonary. COVID 19 infection. Actemra x1 and remdesivir. Continue to trend inflammatory markers. Consider convalescent plasma therapy per ID. COVID coagulopathy. Continue with full anticoagulation. Acute hypoxic respiratory failure. Etiology secondary to above. Continue on mechanical ventilation per pulmonary recommendations. Transaminitis. Etiology secondary to sepsis/COVID. Continue to trend LFTs. Acute kidney injury. Etiology secondary to ATN/sepsis superimposed on vasomotor nephropathy. Continue to follow BMP Coag negative staph bacteremia. Continue IV antibiotics. 10/03/2019. Patient's daughter Evelio Plascencia has consented to convalescent plasma therapy. Await type and screen for patient enrollment. Continue mechanical ventilation per pulmonary. Patient currently AC mode ventilation rate of 20, tidal volume 450 FiO2 70% and PEEP of 12. Continue Solu-Medrol 40 mg IV daily. Wean sedation of propofol and fentanyl as needed. 10/04/2019. Convalescent plasma enrollment form has been submitted. Patient currently on mechanical ventilation AC mode rate 20, tidal volume 450 FiO2 100%. Continue IV Solu-Medrol. Wean sedation of propofol and fentanyl as needed. Patient not a candidate of remdesivir secondary to elevated creatinine. Continue ceftriaxone and azithromycin for total of 5 days. Continue to trend inflammatory markers. Prognosis is extremely guarded. 10/05/2019. Await convalescent plasma. Continue IV steroids, ceftriaxone, azithromycin and full anticoagulation. Creatinine elevated and thus not a candidate for Remdesivir. Patient actually with worsening creatinine secondary to acute kidney injury with ATN in the setting of septic shock superimposed on vasomotor nephropathy. Continue pressors to maintain MAP> 65. The high probability of a clinically significant, sudden or life threatening deterioration of the [respiratory] system(s) required my full and direct attention, intervention and personal management. The aggregate critical care time was [33] minutes. This time is in addition to time spent performing reported procedures but includes the following: [x] Data Review and interpretation [x] Patient assessment and monitoring of vital signs [x] Documentation [x] Medication orders and management History Interval history: The patient is a 64-year-old female who came into the emergency room with complaints of shortness of breath and cough. She has a history of diabetes and hypertension. Due to significant hypoxia, she was intubated and placed on mechanical ventilation. COVID-19 test is positive. Additionally, her labs show ferritin 1646, procalcitonin 1.73, LDH 766, CRP 18.6, mild transaminitis, d- dimer 1957. Hospitalist Physical - Constitutional Vitals: Temp Pulse Resp BP Pulse Ox 97.7 F 67 30 H 130/72 100 10/05/19 08:00 10/05/19 10:38 10/05/19 09:01 10/05/19 10:38 10/05/19 10:38 General appearance: Present: well-nourished, other (Patient on mechanical ventilation) - EENT Eyes: Present: PERRL, EOM intact ENT: hearing intact, clear oral mucosa, dentition normal - Neck Neck: Present: supple, normal ROM - Respiratory Respiratory effort: normal Respiratory: bilateral: CTA - Cardiovascular Rhythm: regular Heart Sounds: Present: S1 & S2. Absent: gallop, rub - Extremities Extremities: no ischemia, No edema, Full ROM - Abdominal General gastrointestinal: soft, non-tender, non-distended, normal bowel sounds - Integumentary Integumentary: Present: clear, warm, dry - Neurologic Neurologic: CNII-XII intact, moves all extremities HEART Score - HEART Score Troponin: Troponin T 0.018 ng/mL (0.00-0.029) 10/01/19 05:36 Results - Labs CBC & Chem 7: 10/05/19 06:00 10/05/19 06:00 Labs: Laboratory Last Values WBC 18.6 K/mm3 (4.5-11.0) H 10/05/19 06:00 RBC 4.05 M/mm3 (3.65-5.03) 10/05/19 06:00 Hgb 12.1 gm/dl (10.1-14.3) 10/05/19 06:00 Hct 37.6 % (30.3-42.9) 10/05/19 06:00 MCV 93 fl (79-97) 10/05/19 06:00 MCH 30 pg (28-32) 10/05/19 06:00 MCHC 32 % (30-34) 10/05/19 06:00 RDW 16.6 % (13.2-15.2) H 10/05/19 06:00 Plt Count 78 K/mm3 (140-440) L 10/05/19 06:00 Lymph % (Auto) Patient Accounting Representative 10/01/19 06:31 [place] % (Auto) Patient Accounting Representative 10/01/19 06:31 Eos % (Auto) Patient Accounting Representative 10/01/19 06:31 Baso % (Auto) Patient Accounting Representative 10/01/19 06:31 Lymph # Patient Accounting Representative 10/01/19 06:31 [place] # Patient Accounting Representative 10/01/19 06:31 Eos # Patient Accounting Representative 10/01/19 06:31 Baso # Patient Accounting Representative 10/01/19 06:31 Add Manual Diff Complete 10/04/19 16:30 Total Counted 100 10/04/19 16:30 Seg Neutrophils % Patient Accounting Representative 10/05/19 06:00 Seg Neuts % (Manual) 92.0 % (40.0-70.0) H 10/04/19 16:30 Band Neutrophils % 0 % 10/04/19 16:30 Lymphocytes % (Manual) 3.0 % (13.4-35.0) L 10/04/19 16:30 Reactive Lymphs % (Man) 0 % 10/04/19 16:30 Monocytes % (Manual) 5.0 % (0.0-7.3) 10/04/19 16:30 Eosinophils % (Manual) 0 % (0.0-4.3) 10/04/19 16:30 Basophils % (Manual) 0 % (0.0-1.8) 10/04/19 16:30 Metamyelocytes % 0 % 10/04/19 16:30 Myelocytes % 0 % 10/04/19 16:30 Promyelocytes % 0 % 10/04/19 16:30 Blast Cells % 0 % 10/04/19 16:30 Nucleated RBC % 4.0 % (0.0-0.9) H 10/04/19 16:30 Seg Neutrophils # Patient Accounting Representative 10/01/19 06:31 Seg Neutrophils # Man 19.5 K/mm3 (1.8-7.7) H 10/04/19 16:30 Band Neutrophils # 0.0 K/mm3 10/04/19 16:30 Lymphocytes # (Manual) 0.6 K/mm3 (1.2-5.4) L 10/04/19 16:30 Abs React Lymphs (Man) 0.0 K/mm3 10/04/19 16:30 Monocytes # (Manual) 1.1 K/mm3 (0.0-0.8) H 10/04/19 16:30 Eosinophils # (Manual) 0.0 K/mm3 (0.0-0.4) 10/04/19 16:30 Basophils # (Manual) 0.0 K/mm3 (0.0-0.1) 10/04/19 16:30 Metamyelocytes # 0.0 K/mm3 10/04/19 16:30 Myelocytes # 0.0 K/mm3 10/04/19 16:30 Promyelocytes # 0.0 K/mm3 10/04/19 16:30 Blast Cells # 0.0 K/mm3 10/04/19 16:30 WBC Morphology Not Reportable 10/04/19 16:30 Hypersegmented Neuts Not Reportable 10/04/19 16:30 Hyposegmented Neuts Not Reportable 10/04/19 16:30 Hypogranular Neuts Not Reportable 10/04/19 16:30 Smudge Cells Not Reportable 10/04/19 16:30 Toxic Granulation Not Reportable 10/04/19 16:30 Toxic Vacuolation Not Reportable 10/04/19 16:30 Dohle Bodies Not Reportable 10/04/19 16:30 Pelger-Huet Anomaly Not Reportable 10/04/19 16:30 Dona Rods Not Reportable 10/04/19 16:30 Platelet Estimate Not Reportable 10/04/19 16:30 Clumped Platelets Not Reportable 10/04/19 16:30 Plt Clumps, EDTA Not Reportable 10/04/19 16:30 Large Platelets Not Reportable 10/04/19 16:30 Giant Platelets Not Reportable 10/04/19 16:30 Platelet Satelliting Not Reportable 10/04/19 16:30 Plt Morphology Comment Not Reportable 10/04/19 16:30 RBC Morphology Normal 10/04/19 16:30 Dimorphic RBCs Not Reportable 10/04/19 16:30 Polychromasia Not Reportable 10/04/19 16:30 Hypochromasia Not Reportable 10/04/19 16:30 Poikilocytosis Not Reportable 10/04/19 16:30 Anisocytosis Not Reportable 10/04/19 16:30 Microcytosis Not Reportable 10/04/19 16:30 Macrocytosis Not Reportable 10/04/19 16:30 Spherocytes Not Reportable 10/04/19 16:30 Pappenheimer Bodies Not Reportable 10/04/19 16:30 Sickle Cells Not Reportable 10/04/19 16:30 Target Cells Not Reportable 10/04/19 16:30 Tear Drop Cells Not Reportable 10/04/19 16:30 Ovalocytes Not Reportable 10/04/19 16:30 Helmet Cells Not Reportable 10/04/19 16:30 [place] Bodies Not Reportable 10/04/19 16:30 [place] Rings Not Reportable 10/04/19 16:30 [place] Cells Not Reportable 10/04/19 16:30 Bite Cells Not Reportable 10/04/19 16:30 Crenated Cell Not Reportable 10/04/19 16:30 Elliptocytes Not Reportable 10/04/19 16:30 Acanthocytes (Spur) Not Reportable 10/04/19 16:30 Rouleaux Not Reportable 10/04/19 16:30 Hemoglobin C Crystals Not Reportable 10/04/19 16:30 Schistocytes Not Reportable 10/04/19 16:30 Malaria parasites Not Reportable 10/04/19 16:30 Cornelio Bodies Not Reportable 10/04/19 16:30 Hem Pathologist Commnt No 10/04/19 16:30 PT 14.5 Sec. (12.2-14.9) 10/01/19 05:36 INR 1.15 (0.87-1.13) H 10/01/19 05:36 APTT 28.6 Sec. (24.2-36.6) 10/01/19 05:36 D-Dimer 1957.06 ng/mlDDU (0-234) H 10/01/19 12:24 ABG pH 7.223 pH Units (7.350-7.450) L 10/05/19 04:00 ABG pCO2 48.2 mm Hg 10/05/19 04:00 ABG pO2 93.7 mm Hg (80.0-90.0) H 10/05/19 04:00 ABG HCO3 19.4 mmol/L (20.0-26.0) L 10/05/19 04:00 ABG O2 Saturation TNR 10/05/19 04:00 ABG O2 Content 20.1 (0.0-44) 10/05/19 04:00 ABG Base Excess -8.3 mmol/L (-2.0-3.0) L 10/05/19 04:00 ABG Hemoglobin TNR 10/05/19 04:00 ABG Carboxyhemoglobin TNR 10/05/19 04:00 ABG Methemoglobin TNR 10/05/19 04:00 Oxyhemoglobin TNR 10/05/19 04:00 FiO2 100 % 10/05/19 04:00 Sodium 144 mmol/L (137-145) 10/05/19 06:00 Potassium 5.2 mmol/L (3.6-5.0) H 10/05/19 06:00 Chloride 110.9 mmol/L (98-107) H 10/05/19 06:00 Carbon Dioxide 17 mmol/L (22-30) L 10/05/19 06:00 Anion Gap 21 mmol/L 10/05/19 06:00 BUN 101 mg/dL (7-17) H 10/05/19 06:00 Creatinine 3.2 mg/dL (0.7-1.2) H 10/05/19 06:00 Estimated GFR 18 ml/min 10/05/19 06:00 BUN/Creatinine Ratio 32 % 10/05/19 06:00 Glucose 368 mg/dL (65-100) H 10/05/19 06:00 POC Glucose 362 (70-105) H 10/05/19 05:05 Ketones Quantitative Negative (Negative) 10/01/19 06:31 Lactic Acid 1.80 mmol/L (0.7-2.0) 10/02/19 08:04 Calcium 8.4 mg/dL (8.4-10.2) 10/05/19 06:00 Phosphorus 4.70 mg/dL (2.5-4.5) H 10/01/19 12:45 Magnesium 2.50 mg/dL (1.7-2.3) H 10/01/19 12:45 Ferritin 1646.0 ng/mL (13.0-400.0) H 10/01/19 12:24 Total Bilirubin 0.30 mg/dL (0.1-1.2) 10/01/19 05:36 Direct Bilirubin < 0.2 mg/dL (0-0.2) 10/01/19 05:36 Indirect Bilirubin 0.1 mg/dL 10/01/19 05:36 AST 54 units/L (5-40) H 10/01/19 05:36 ALT 64 units/L (7-56) H 10/01/19 05:36 Alkaline Phosphatase 94 units/L (35-129) 10/01/19 05:36 Lactate Dehydrogenase 766 units/L (91-180) H 10/01/19 12:24 Troponin T 0.018 ng/mL (0.00-0.029) 10/01/19 05:36 C-Reactive Protein 18.60 mg/dL (0.00-1.30) H 10/01/19 12:24 NT-Pro-B Natriuret Pep 1525 pg/mL (0-900) H 10/01/19 12:45 Total Protein 6.6 g/dL (6.3-8.2) 10/01/19 05:36 Albumin 3.4 g/dL (3.9-5) L 10/01/19 05:36 Albumin/Globulin Ratio 1.1 % 10/01/19 05:36 Triglycerides 518 mg/dL (2-149) H 10/05/19 06:00 Procalcitonin 1.73 ng/mL (<0.15) 10/01/19 12:24 Urine Creatinine 336.4 mg/dL (0.1-20.0) H 10/02/19 15:28 Urine Sodium 10 mmol/L 10/02/19 15:28 Coronavirus (PCR) Positive (Negative) A 10/01/19 Unknown Blood Type B POSITIVE 10/03/19 13:50 Antibody Screen Negative 10/03/19 13:50 Microbiology: Microbiology 10/01/19 05:36 Peripheral/Venous Blood Culture - Preliminary Coag Negative Staphylococcus 10/01/19 05:38 Peripheral/Venous Blood Culture - Preliminary NO GROWTH AFTER 4 DAYS - Diagnostic Impressions Diagnostic Impressions: Echocardiogram 10/02/19 19:48 Transthoracic Echocardiogram Indication: Elevated BNP BP: 78/37 HR: 75 Conclusions *Global left ventricular systolic function is normal. *The estimated ejection fraction is 50-55%. *The right ventricular global systolic function is normal. *There is mild to moderate tricuspid regurgitation. *The right ventricular systolic pressure is calculated at 75 mmHg. *There is no evidence of mitral regurgitation. *There is no evidence of aortic regurgitation. *There is trace pulmonic regurgitation. *There is no pericardial effusion. *There is evidence of severe pulmonary hypertension. Findings Left Ventricle: Global left ventricular wall motion and contractility are within normal limits. Global left ventricular systolic function is normal. The estimated ejection fraction is 50-55%. Abnormal left ventricular diastolic filling is observed, consistent with impaired relaxation. Left Atrium: The left atrial chamber size is normal. Right Ventricle: The right ventricular cavity size is normal. The right ventricular global systolic function is normal. Right Atrium: The right atrial cavity size is normal. Aortic Valve: The aortic valve leaflets are mildly thickened. There is no evidence of aortic regurgitation. Mitral Valve: The mitral valve leaflets are mildly thickened. There is no evidence of mitral regurgitation. Tricuspid Valve: The tricuspid valve leaflets are normal. There is mild to moderate tricuspid regurgitation. The right ventricular systolic pressure is calculated at 75 mmHg. There is evidence of severe pulmonary hypertension. Pulmonic Valve: The pulmonic valve appears normal. There is trace pulmonic regurgitation. Pericardium: There is no pericardial effusion. Aorta: The aorta appears normal. Venous: The inferior vena cava appears normal. Measurements Chambers 2D Name Value Normal Range IVSd (2D) 1.1 cm (0.6 - 1.1) LVPWd (2D) 1.03 cm (0.6 - 1.1) IVS:LVPW ratio (2D) 1.07 ratio - LVIDd (2D) 2.7 cm (3.7 - 5.6) LVIDs (2D) 2.02 cm (2 - 3.8) LV FS (Teichholz) (2D) 25.2 % - LV FS (cube) (2D) 25.2 % - EF Teichholz (2D) 51.5 % - Ao root diameter (2D) 2.4 cm (2 - 3.7) LA dimension (AP) 2D 2.9 cm (1.9 - 4) LA:Ao ratio (2D) 1.21 ratio - Volumes/Mass Name Value Normal Range LA ESV SP 4CH (MOD) 23 ml - LA ESV SP 2CH (MOD) 21 ml - LA ESV BP (MOD) 22 ml - LA ESV BP (MOD) index 13.6 ml/m2 - LV EDV SP 4CH (MOD) 54 ml - LV ESV SP 4CH (MOD) 20 ml - EF SP 4CH (MOD) 63 % - LV EDV SP 2CH (MOD) 48 ml - LV ESV SP 2CH (MOD) 20 ml - EF SP 2CH (MOD) 58 % - LV EDV BP 51 ml - LV ESV BP 20 ml - BP EF (MOD) 61 % - Diastolic/Systolic Function Name Value Normal Range MV E-wave Vmax 0.94 m/sec - MV deceleration time 218 msec - MV A-wave Vmax 1.06 m/sec - MV E:A ratio 0.9 ratio - LV septal e' Vmax 0.08 m/sec - LV lateral e' Vmax 0.08 m/sec - LV E:e' septal ratio 11.3 ratio - LV E:e' lateral ratio 11.4 ratio - Aortic Valve Name Value Normal Range AV VTI 29.3 cm - AV mean gradient 8 mmHg - LVOT diameter 2 cm - LVOT VTI 29.7 cm - LVOT mean gradient 6 mmHg - SV LVOT 93 ml - YASMEEN (continuity VTI) 3.18 cm2 - Tricuspid Valve Name Value Normal Range TR Vmax 4.25 m/sec - TR peak gradient 72 mmHg - RAP 3 mmHg - RVSP 75 mmHg - Pulmonic Valve/Qp:Qs Name Value Normal Range PV Vmax 1.11 m/sec - PV peak gradient 5 mmHg - MS end-diastolic Vmax 1.71 m/sec - PV acceleration time 77 msec - Alexis/IV: Voiding Method Indwelling Catheter IV Catheter Type [Left Upper PICC Line arm] IV Catheter Type [Left Forearm INT / Saline Lock ] IV Catheter Type [Right Hand] Peripheral IV IV Catheter Type [Left Foot] INT / Saline Lock IV Catheter Type [Right Peripheral IV Forearm] Active Medications - Current Medications Current Medications: Generic Name Dose Route Start Last Admin Trade Name Freq PRN Reason Stop Dose Admin Acetaminophen 650 mg 10/01/19 09:10 Tylenol PO Q6H PRN Pain MILD(1-3)/Fever >100.5/PALOMARES Albuterol 2.5 mg 10/01/19 09:10 Proventil IH Q3HRT PRN Shortness Of Breath Lipase/Protease/Amylase 1 each 10/02/19 11:44 Pancreaze 10,500 Unit FEEDTUBE PRN PRN For Clogged Feeding Tube Apixaban 5 mg 10/05/19 11:00 Eliquis PO Q12HR CLARKE Ascorbic Acid 500 mg 10/01/19 16:00 10/05/19 10:55 Vitamin C PO 500 mg BID CLARKE Administration Azithromycin 500 mg 10/02/19 10:00 10/05/19 10:55 Zithromax PO 10/06/19 10:01 500 mg QDAY CLARKE Administration Dextrose 50 ml 10/01/19 09:10 D50w (25gm) Syringe IV Q30MIN PRN Hypoglycemia Protocol Famotidine 20 mg 10/04/19 10:00 10/05/19 10:55 Pepcid PO 20 mg DAILY CLARKE Administration Fentanyl 50 mcg 10/01/19 15:03 Sublimaze IV Q10MIN PRN ANALGESIA Hydralazine HCl 10 mg 10/01/19 09:20 10/04/19 10:00 Apresoline IV 10 mg Q4HR PRN Administration Hypertension Hydrophilic Ointment 1 applic 10/01/19 13:33 Vaseline Lip Therapy TP Q2HR PRN Dry Lips Hydrophilic Ointment 1 applic 10/04/19 14:47 Vaseline Lip Therapy TP Q2HR PRN Dry Lips Ceftriaxone Sodium 2 gm in 100 mls @ 200 mls/hr 10/02/19 10:00 10/05/19 10:55 Rocephin/Ns 2 Gm/100 Ml IV 10/06/19 10:29 200 mls/hr Q24HR CLARKE Administration Protocol Propofol 1,000 mg in 100 mls @ 1.905 mls/hr 10/01/19 14:00 10/05/19 10:57 Diprivan 10 Mg/Ml IV 40 mcg/kg/min TITR CLARKE 15.241 mls/hr Titration Protocol 5 MCG/KG/MIN Fentanyl Citrate 2,000 mcg in 100 mls @ 3.175 mls/hr 10/01/19 16:00 10/05/19 08:48 Fentanyl Drip Premix IV 4 mcg/kg/hr TITR CLARKE 12.701 mls/hr Administration Protocol 1 MCG/KG/HR Midazolam HCl 100 mg/ Sodium 100 mls @ 2 mls/hr 10/04/19 15:00 10/05/19 06:13 Chloride IV 5 mg/hr TITR CLARKE 5 mls/hr Administration Protocol 2 MG/HR Sodium Chloride 500 mls @ 10 mls/hr 10/04/19 16:00 Nacl 0.9% 500 Ml IV DIRECT CLARKE Norepinephrine 4 mg in 250 mls @ 37.5 mls/hr 10/04/19 18:00 10/05/19 06:14 Levophed Drip 4 Mg/Ns 250 Ml IV 8 mcg/min TITR CLARKE 30 mls/hr Titration Protocol 10 MCG/MIN Dextrose/Sodium Chloride 1,000 mls @ 75 mls/hr 10/04/19 18:00 10/05/19 06:14 D5ns IV 75 mls/hr DIRECT CLARKE Administration Sodium Bicarbonate 150 meq/ 1,150 mls @ 75 mls/hr 10/05/19 11:00 Sterile Water IV DIRECT CLARKE Insulin Human Isoph/Insulin Regular 40 unit 10/05/19 17:00 Humulin 70/30 SUB-Q BIDDIAB CLARKE Insulin Human Lispro 0 unit 10/01/19 12:00 10/05/19 05:08 Humalog SUB-Q 8 unit Q6HR CLARKE Administration Protocol Methylprednisolone Sodium Succinate 40 mg 10/03/19 14:00 10/05/19 05:00 Solu-Medrol IV 40 mg Q8HR CLARKE Administration Metoclopramide HCl 10 mg 10/01/19 09:10 Reglan IV Q6H PRN Nausea And Vomiting Midazolam HCl 2 mg 10/04/19 14:47 Versed IV Q10MIN PRN Sedation Multi-Ingred Cream/Lotion/Oil/Oint 1 applic 10/01/19 13:33 Artificial Tears Ophth Oint OU Q4HR PRN Dry Eye(s) Multi-Ingred Cream/Lotion/Oil/Oint 1 applic 10/04/19 14:47 Artificial Tears Ophth Oint OU Q4HR PRN Dry Eye(s) Naloxone HCl 0.1 mg 10/01/19 09:10 Naloxone IV Q2MIN PRN Res Rate </= 8 or 02 SAT < 92% Simple Syrup 15 ml 10/02/19 11:44 Simple Syrup FEEDTUBE PRN PRN Hypoglycemia Simple Syrup 30 ml 10/02/19 11:44 Simple Syrup FEEDTUBE PRN PRN Hypoglycemia Sodium Bicarbonate 325 mg 10/02/19 11:44 Sodium Bicarbonate FEEDTUBE PRN PRN For Clogged Feeding Tube Sodium Chloride 10 ml 10/01/19 10:00 10/05/19 10:55 Sodium Chloride Flush Syringe 10 Ml IV 10 ml BID CLARKE Administration Sodium Chloride 10 ml 10/01/19 09:10 Sodium Chloride Flush Syringe 10 Ml IV PRN PRN LINE FLUSH Sodium Chloride 5 ml 10/04/19 14:47 Nacl 0.9% 500 Ml IV DIRECT PRN [employer] Sodium Polystyrene Sulfonate 30 gm 10/05/19 11:37 Kionex PO 10/05/19 11:38 ONCE ONE Zinc Sulfate 220 mg 10/01/19 16:00 10/05/19 10:55 Zinc Sulfate PO 220 mg BID CLARKE Administration Nutrition/Malnutrition Assess - Dietary Evaluation Nutrition/Malnutrition Findings: Nutrition Notes Start: 10/01/19 14:13 Freq: Status: Active Protocol: Document 10/04/19 12:42 LM (Rec: 10/04/19 12:56 LM [id number]) Nutrition Notes Need for Assessment generated from: MD Order Initial or Follow up Reassessment Current Diagnosis Acute Kidney Injury,Diabetes, Hypertension Other Pertinent Diagnosis COVID-19 (+) Current Diet Vital AF 1.2 at 45ml/hr Labs/Tests POC glu 265 7/8 BUN 64 Cr 2.1 Pertinent Medications Solumedrol Zinc Height 5 ft 1 in Weight 63.503 kg [place] Body Weight (kg) 47.72 BMI 26.4 Weight Status Overweight Subjective/Other Information MD consult to write/manage TF. Pt will be proned for 8-12 hr . Burn Absent Trauma Absent GI Symptoms None Current % PO Negligible Minimum of two criteria No physical signs of malnutrition #1 Nutrition Diagnosis Inadequate oral intake Diagnosis Progress(for reassessment Continues documentation) Is patient on ventilator? Yes Is Patient Ambulatory and/or Out of Bed No REE-([facility]-confined to bed) [phone] Calculation Used for Recommendations [facility] Additional Notes Protein needs are 76-127g (1.2 -2g/kg) Fluid needs are 1ml/kcal Nutrition Intervention Change Diet Order: TF Nutrition Support: Change to Nepro 1.8 at 30ml/hr Flush 130ml q4h When prone Nepro 1.8 at 20ml/ hr for 12 hr Flush 50ml q4h Nepro 1.8 at 40ml/hr for the remaining 12 hr when not prone Flush 90ml q4h Kcal 1,296 Protein (gm) 58 Fluid (mL) 523 Goal #1 Meet at least 75% of kcal and protein needs Anticipated Discharge Needs: Unable to determine at this time Follow-Up By: 10/08/19 Additional Comments F/U for TF change/tolerance
[2019-10-05] MEDS ORDERED: SODIUM POLYSTYRENE 15 GM/60 ML ORAL LIQD PO ONE (12:00)
[2019-10-05] MEDS: SODIUM BICARBONATE 150 MEQ in WATER FOR INJECTION (PF) 1,000 ML IV SCH (12:02)
[2019-10-05] MEDS: APIXABAN 5 MG TAB PO SCH ×2 (12:03→21:04)
[2019-10-05 12:14] LABS: Anisocytosis 1+; Band Neutrophils # (Manual) 0.2 K/mm3; Basophils % (Manual) 0 % (0.0-1.8); Eosinophils % (Manual) 0 % (0.0-4.3); Macrocytosis Few; Monocytes % (Manual) 0 % (0.0-7.3); Myelocytes # (Manual) 0.4 K/mm3; Platelet Estimate Consistent w Auto; Schistocytes Rare; Total Cells Counted 100
[2019-10-05 13:01] LABS: Bacteria,Urine 1+ /HPF (Negative); Bilirubin,Urine NEG (Negative); Blood,Urine MOD (Negative); Color,Urine Yellow (Yellow); Mucus,Urine FEW /HPF; Urobilinogen,Urine < 2.0 mg/dL (<2.0)
--- NOTE | 2019-10-05 13:04 | Progress Note ---
Assessment and Plan Severe sepsis secondary to COVID COVID pneumonia with ARDS Acute hypoxemic respiratory failure, orally intubated on MVS Multi-lobar pneumonia FANI Thrombocytopenia -ABG, CXR now and daily -CBC, BMP now - Wean supplemental oxygen for target O2 sats > 92% - PEEP at 18 monitor airway pressures closely -Place back supine after 12 hours of proning - Daily SAT's and SBT assessment - current ventilator demands precludes this - VAP bundle addressed - Lung protective strategies -Fluid conservative measures as tolerated by hemodynamics and renal function - Bronchodilators with pulmonary hygiene per RT - Accuchecks with glycemic control per SSI (While critically ill target blood glucose of 140-180 mg/dL; avoid hypoglycemia) - Avoid benzodiazepines, reduce the possibility of delirium - prn analgesia per CPOT score - Maintenance of sleep-wake cycle, avoid delirium -Avoid nephrotoxins, closely monitor renal function -Alexis catheter for accurate intake and output monitoring in this critically ill patient with COVID-ARDS, severe hypoxemia -Empiric antibiotics( Ceftriaxone and Azithromycin for CAP ) -Aspiration precautions, HOB >40 -Sedation Fentanyl, Propofol and midazolam titrate to RASS -2 to -4 - Stress ulcer prophylaxis ( Famotidine) - Mobility protocol, off loading and skin assessment for pressure ulcer prevention - Monitor hemodynamics closely -Supportive transfusions as indicated to keep HgB >7g/dL -Place intrarterial line for frequent ABG and in the event of proning -Early consideration for transfer for evaluation for ECMO if she does not improve or there is ongoing deterioration COVID SPECIFIC INTERVENTIONS -Needs aggressive management per ID/Pulmonary drive protocols -Airborne, contact isolation for COVID per facility protocols -Patient has renal impairment and is not a candidate for Remdesivir at this iva e -Consent and administration of convalescent plasma per facility protocol -Continue with steroids, solumedrol IV 40mg q8 -Continue with therapeutic anticoagulation. Eliquis started, HIT panel ordered -Trend inflammatory markers per facility protocol -Continue all supportive care -Contact tracing and testing of her contacts Discussed with the ICU team-RT,RN, Case management and clinical pharmacist Discussed extensively with ID and primary Attending Life threatening condition- Severe sepsis with COVID 19 ARDS acute hypoxemic respiratory failure on MVS Mortality/Morbidity- High Complexity of medical decision making- High CONDITION: CRITICAL PROGNOSIS: GUARDED-GRAVE CODE STATUS: FULL CODE The high probability of a clinically significant, sudden or life-threatening deterioration of the [respiratory , cardiovascular, renal, neurology] system(s) required my full and direct attention, intervention and personal management. The aggregate critical care time was [45] minutes without overlap. Time includes spent on; [x] Data Review and interpretation [x] Patient assessment and monitoring of vital signs [x] Documentation [x] Medication orders and management Subjective Date of service: 10/05/19 Principal diagnosis: Ac. hypoxemic resp failure; ARDS; COVID-19 virus infxn; PNA; Severe sepsis Interval history: Patient is seen today for: Ac. hypoxemic resp failure; ARDS; COVID-19 virus infection; Bilateral pneumonia; Severe sepsis; FANI Seen and examined at bedside; 24hour events reviewed; nursing and respiratory care staff consulted; no adverse overnight events reported to me; resting in bed; maintaining oxygen saturations above 94%, discussed with Agricultural Technical Officer worsening renal function No fevers, on Fentanyl, Midazolam and propofol. Off all vasopressors. Bicarb infusion Objective Vital Signs - 12hr 10/05/19 10/05/19 10/05/19 01:15 01:31 01:45 Temperature Pulse Rate 103 H 105 H 105 H Pulse Rate [ From Monitor] Respiratory 26 H 22 24 Rate Blood Pressure O2 Sat by Pulse 88 88 88 Oximetry 10/05/19 10/05/19 10/05/19 02:01 02:15 02:31 Temperature Pulse Rate 103 H 100 H 98 H Pulse Rate [ From Monitor] Respiratory 19 23 16 Rate Blood Pressure O2 Sat by Pulse 87 91 91 Oximetry 10/05/19 10/05/19 10/05/19 02:45 03:01 03:15 Temperature Pulse Rate 105 H 105 H 99 H Pulse Rate [ From Monitor] Respiratory 22 16 15 Rate Blood Pressure O2 Sat by Pulse 91 88 92 Oximetry 10/05/19 10/05/19 10/05/19 03:31 03:45 04:00 Temperature Pulse Rate 102 H 104 H Pulse Rate [ 78 From Monitor] Respiratory 26 H 32 H 30 H Rate Blood Pressure O2 Sat by Pulse 93 95 97 Oximetry 10/05/19 10/05/19 10/05/19 04:01 04:14 04:15 Temperature 97.5 F L Pulse Rate 93 H 96 H Pulse Rate [ From Monitor] Respiratory 20 25 H Rate Blood Pressure O2 Sat by Pulse 97 94 Oximetry 10/05/19 10/05/19 10/05/19 04:28 04:31 04:45 Temperature Pulse Rate 94 H 95 H 86 Pulse Rate [ From Monitor] Respiratory 28 H 30 H Rate Blood Pressure O2 Sat by Pulse 92 90 98 Oximetry 10/05/19 10/05/19 10/05/19 05:01 05:15 05:31 Temperature Pulse Rate 81 77 77 Pulse Rate [ From Monitor] Respiratory 30 H 30 H 30 H Rate Blood Pressure O2 Sat by Pulse 100 98 99 Oximetry 10/05/19 10/05/19 10/05/19 05:45 06:01 06:15 Temperature Pulse Rate 80 82 76 Pulse Rate [ From Monitor] Respiratory 30 H 30 H 30 H Rate Blood Pressure O2 Sat by Pulse 97 97 98 Oximetry 10/05/19 10/05/19 10/05/19 06:31 06:45 07:01 Temperature Pulse Rate 76 75 76 Pulse Rate [ From Monitor] Respiratory 30 H 30 H 30 H Rate Blood Pressure O2 Sat by Pulse 98 98 98 Oximetry 10/05/19 10/05/19 10/05/19 07:15 07:31 07:45 Temperature Pulse Rate 76 77 76 Pulse Rate [ From Monitor] Respiratory 30 H 30 H 30 H Rate Blood Pressure 120/77 116/71 O2 Sat by Pulse 98 99 99 Oximetry 10/05/19 10/05/19 10/05/19 08:00 08:01 08:15 Temperature 97.7 F Pulse Rate 75 75 Pulse Rate [ 79 From Monitor] Respiratory 30 H 30 H 30 H Rate Blood Pressure 115/71 115/71 O2 Sat by Pulse 94 99 99 Oximetry 10/05/19 10/05/19 10/05/19 08:31 08:45 09:01 Temperature Pulse Rate 72 76 73 Pulse Rate [ From Monitor] Respiratory 30 H 30 H 30 H Rate Blood Pressure 117/70 126/74 121/72 O2 Sat by Pulse 98 97 98 Oximetry 10/05/19 10/05/19 10/05/19 09:12 09:15 09:31 Temperature Pulse Rate 71 71 78 Pulse Rate [ From Monitor] Respiratory 30 H 30 H Rate Blood Pressure 120/70 120/70 89/54 O2 Sat by Pulse 97 93 96 Oximetry 10/05/19 10/05/19 10/05/19 09:45 10:01 10:15 Temperature Pulse Rate 79 78 69 Pulse Rate [ From Monitor] Respiratory 30 H 30 H 29 H Rate Blood Pressure 93/56 90/57 93/57 O2 Sat by Pulse 94 92 97 Oximetry 10/05/19 10/05/19 10/05/19 10:31 10:38 10:45 Temperature Pulse Rate 69 67 70 Pulse Rate [ From Monitor] Respiratory 30 H 8 L Rate Blood Pressure 90/57 130/72 90/57 O2 Sat by Pulse 99 100 100 Oximetry 10/05/19 10/05/19 10/05/19 11:01 11:15 11:31 Temperature Pulse Rate 67 66 66 Pulse Rate [ From Monitor] Respiratory 30 H 30 H 30 H Rate Blood Pressure 97/61 116/62 113/59 O2 Sat by Pulse 100 100 100 Oximetry 10/05/19 10/05/19 10/05/19 11:45 12:00 12:01 Temperature 97.9 F Pulse Rate 69 64 Pulse Rate [ 75 From Monitor] Respiratory 30 H 30 H 30 H Rate Blood Pressure 58/37 122/65 O2 Sat by Pulse 100 100 100 Oximetry 10/05/19 10/05/19 12:15 12:31 Temperature Pulse Rate 66 64 Pulse Rate [ From Monitor] Respiratory 30 H 30 H Rate Blood Pressure 122/65 122/65 O2 Sat by Pulse 100 100 Oximetry Constitutional: appears uncomfortable, other (elderly looking AAF with mildly increased resp effort at rest on mvs) Eyes: non-icteric ENT: oropharynx moist, other (ETT 24 cm GLYNN) Neck: supple, no lymphadenopathy, no JVD Effort: very labored Ascultation: Bilateral: diminished breath sounds, rales Percussion: Bilateral: not dull Cardiovascular: regular rate and rhythm, other (S1,S2, no murmurs) Gastrointestinal: normoactive bowel sounds, soft, non-tender, non-distended Integumentary: normal Extremities: no cyanosis, no edema, pulses normal, no ischemia or petechiae Neurologic: pupils equal and round, other (unable to assess, sedated) Psychiatric: other (unable to assess, sedated) CBC and BMP: 10/06/19 06:07 10/06/19 06:07 ABG, PT/INR, D-dimer: ABG ABG pH 7.223 pH Units (7.350-7.450) L 10/05/19 04:00 ABG pCO2 48.2 mm Hg 10/05/19 04:00 ABG pO2 93.7 mm Hg (80.0-90.0) H 10/05/19 04:00 ABG O2 Saturation TNR 10/05/19 04:00 PT/INR, D-dimer PT 14.5 Sec. (12.2-14.9) 10/01/19 05:36 INR 1.15 (0.87-1.13) H 10/01/19 05:36 D-Dimer 1957.06 ng/mlDDU (0-234) H 10/01/19 12:24 Abnormal lab findings: Abnormal Labs 10/01/19 10/01/19 10/01/19 05:36 05:36 05:36 WBC RDW Plt Count Seg Neuts % (Manual) Lymphocytes % (Manual) Nucleated RBC % Seg Neutrophils # Man Lymphocytes # (Manual) Monocytes # (Manual) INR 1.15 H D-Dimer 1648.23 H ABG pH ABG pO2 ABG HCO3 ABG O2 Saturation ABG Base Excess ABG Hemoglobin Oxyhemoglobin Potassium Chloride Carbon Dioxide BUN Creatinine Glucose 424 H POC Glucose Lactic Acid Phosphorus Magnesium Ferritin 1745.0 H AST ALT Lactate Dehydrogenase 822 H C-Reactive Protein 15.10 H NT-Pro-B Natriuret Pep Albumin Triglycerides Urine Creatinine Coronavirus (PCR) 10/01/19 10/01/19 10/01/19 05:36 05:36 06:31 WBC 12.8 H RDW Plt Count Seg Neuts % (Manual) 93.0 H Lymphocytes % (Manual) 2.0 L Nucleated RBC % Seg Neutrophils # Man 11.9 H Lymphocytes # (Manual) 0.3 L Monocytes # (Manual) INR D-Dimer ABG pH ABG pO2 ABG HCO3 ABG O2 Saturation ABG Base Excess ABG Hemoglobin Oxyhemoglobin Potassium Chloride Carbon Dioxide 13 L BUN 34 H Creatinine 1.4 H Glucose 413 H POC Glucose Lactic Acid 7.20 H* Phosphorus Magnesium Ferritin AST 54 H ALT 64 H Lactate Dehydrogenase C-Reactive Protein NT-Pro-B Natriuret Pep Albumin 3.4 L Triglycerides Urine Creatinine Coronavirus (PCR) 10/01/19 10/01/19 10/01/19 10:05 12:24 12:24 WBC RDW Plt Count Seg Neuts % (Manual) Lymphocytes % (Manual) Nucleated RBC % Seg Neutrophils # Man Lymphocytes # (Manual) Monocytes # (Manual) INR D-Dimer 1957.06 H ABG pH ABG pO2 ABG HCO3 ABG O2 Saturation ABG Base Excess ABG Hemoglobin Oxyhemoglobin Potassium Chloride Carbon Dioxide BUN Creatinine Glucose 346 H POC Glucose 354 H Lactic Acid Phosphorus Magnesium Ferritin AST ALT Lactate Dehydrogenase 766 H C-Reactive Protein 18.60 H NT-Pro-B Natriuret Pep Albumin Triglycerides Urine Creatinine Coronavirus (PCR) 10/01/19 10/01/19 10/01/19 12:24 12:45 14:30 WBC RDW Plt Count Seg Neuts % (Manual) Lymphocytes % (Manual) Nucleated RBC % Seg Neutrophils # Man Lymphocytes # (Manual) Monocytes # (Manual) INR D-Dimer ABG pH 7.263 L ABG pO2 60.7 L ABG HCO3 ABG O2 Saturation 88.2 L ABG Base Excess -6.4 L ABG Hemoglobin Oxyhemoglobin 86.6 L Potassium Chloride Carbon Dioxide BUN Creatinine Glucose POC Glucose Lactic Acid Phosphorus 4.70 H Magnesium 2.50 H Ferritin 1646.0 H AST ALT Lactate Dehydrogenase C-Reactive Protein NT-Pro-B Natriuret Pep 1525 H Albumin Triglycerides Urine Creatinine Coronavirus (PCR) 10/01/19 10/01/19 10/01/19 17:20 18:15 21:08 WBC RDW Plt Count Seg Neuts % (Manual) Lymphocytes % (Manual) Nucleated RBC % Seg Neutrophils # Man Lymphocytes # (Manual) Monocytes # (Manual) INR D-Dimer ABG pH 7.289 L ABG pO2 52.1 L ABG HCO3 ABG O2 Saturation 83.2 L ABG Base Excess -4.8 L ABG Hemoglobin 10.5 L Oxyhemoglobin 81.4 L Potassium Chloride Carbon Dioxide BUN Creatinine Glucose POC Glucose 299 H 266 H Lactic Acid Phosphorus Magnesium Ferritin AST ALT Lactate Dehydrogenase C-Reactive Protein NT-Pro-B Natriuret Pep Albumin Triglycerides Urine Creatinine Coronavirus (PCR) 10/01/19 10/01/19 10/02/19 21:35 Unknown 01:23 WBC RDW Plt Count Seg Neuts % (Manual) Lymphocytes % (Manual) Nucleated RBC % Seg Neutrophils # Man Lymphocytes # (Manual) Monocytes # (Manual) INR D-Dimer ABG pH 7.327 L ABG pO2 75.1 L ABG HCO3 ABG O2 Saturation 94.5 L ABG Base Excess -4.4 L ABG Hemoglobin Oxyhemoglobin 92.8 L Potassium Chloride Carbon Dioxide BUN Creatinine Glucose POC Glucose 291 H Lactic Acid Phosphorus Magnesium Ferritin AST ALT Lactate Dehydrogenase C-Reactive Protein NT-Pro-B Natriuret Pep Albumin Triglycerides Urine Creatinine Coronavirus (PCR) Positive A 10/02/19 10/02/19 10/02/19 03:55 05:18 05:18 WBC 17.8 H RDW Plt Count Seg Neuts % (Manual) 93.0 H Lymphocytes % (Manual) 5.0 L Nucleated RBC % 1.0 H Seg Neutrophils # Man 16.6 H Lymphocytes # (Manual) 0.9 L Monocytes # (Manual) INR D-Dimer ABG pH 7.308 L ABG pO2 129.3 H ABG HCO3 ABG O2 Saturation ABG Base Excess -4.9 L ABG Hemoglobin 16.1 H Oxyhemoglobin Potassium Chloride 111.1 H Carbon Dioxide 19 L BUN 44 H Creatinine 2.4 H D Glucose 227 H POC Glucose Lactic Acid Phosphorus Magnesium Ferritin AST ALT Lactate Dehydrogenase C-Reactive Protein NT-Pro-B Natriuret Pep Albumin Triglycerides Urine Creatinine Coronavirus (PCR) 10/02/19 10/02/19 10/02/19 07:15 15:28 17:57 WBC RDW Plt Count Seg Neuts % (Manual) Lymphocytes % (Manual) Nucleated RBC % Seg Neutrophils # Man Lymphocytes # (Manual) Monocytes # (Manual) INR D-Dimer ABG pH ABG pO2 ABG HCO3 ABG O2 Saturation ABG Base Excess ABG Hemoglobin Oxyhemoglobin Potassium Chloride Carbon Dioxide BUN Creatinine Glucose POC Glucose 196 H 137 H Lactic Acid Phosphorus Magnesium Ferritin AST ALT Lactate Dehydrogenase C-Reactive Protein NT-Pro-B Natriuret Pep Albumin Triglycerides Urine Creatinine 336.4 H Coronavirus (PCR) 10/03/19 10/03/19 10/03/19 00:32 04:02 04:02 WBC 17.2 H RDW Plt Count Seg Neuts % (Manual) 95.0 H Lymphocytes % (Manual) 3.0 L Nucleated RBC % 2.0 H Seg Neutrophils # Man 16.3 H Lymphocytes # (Manual) 0.5 L Monocytes # (Manual) INR D-Dimer ABG pH ABG pO2 ABG HCO3 ABG O2 Saturation ABG Base Excess ABG Hemoglobin Oxyhemoglobin Potassium Chloride 108.9 H Carbon Dioxide 19 L BUN 64 H Creatinine 2.1 H Glucose 212 H POC Glucose 184 H Lactic Acid Phosphorus Magnesium Ferritin AST ALT Lactate Dehydrogenase C-Reactive Protein NT-Pro-B Natriuret Pep Albumin Triglycerides Urine Creatinine Coronavirus (PCR) 10/03/19 10/03/19 10/03/19 04:26 05:20 11:22 WBC RDW Plt Count Seg Neuts % (Manual) Lymphocytes % (Manual) Nucleated RBC % Seg Neutrophils # Man Lymphocytes # (Manual) Monocytes # (Manual) INR D-Dimer ABG pH 7.336 L ABG pO2 70.1 L ABG HCO3 ABG O2 Saturation 94.0 L ABG Base Excess -3.8 L ABG Hemoglobin Oxyhemoglobin 92.4 L Potassium Chloride Carbon Dioxide BUN Creatinine Glucose POC Glucose 197 H 248 H Lactic Acid Phosphorus Magnesium Ferritin AST ALT Lactate Dehydrogenase C-Reactive Protein NT-Pro-B Natriuret Pep Albumin Triglycerides Urine Creatinine Coronavirus (PCR) 10/03/19 10/03/19 10/03/19 11:58 18:44 23:51 WBC RDW Plt Count Seg Neuts % (Manual) Lymphocytes % (Manual) Nucleated RBC % Seg Neutrophils # Man Lymphocytes # (Manual) Monocytes # (Manual) INR D-Dimer ABG pH ABG pO2 ABG HCO3 ABG O2 Saturation ABG Base Excess ABG Hemoglobin Oxyhemoglobin Potassium Chloride Carbon Dioxide BUN Creatinine Glucose POC Glucose 245 H 324 H 182 H Lactic Acid Phosphorus Magnesium Ferritin AST ALT Lactate Dehydrogenase C-Reactive Protein NT-Pro-B Natriuret Pep Albumin Triglycerides Urine Creatinine Coronavirus (PCR) 10/04/19 10/04/19 10/04/19 03:50 05:35 11:39 WBC RDW Plt Count Seg Neuts % (Manual) Lymphocytes % (Manual) Nucleated RBC % Seg Neutrophils # Man Lymphocytes # (Manual) Monocytes # (Manual) INR D-Dimer ABG pH ABG pO2 129.4 H ABG HCO3 ABG O2 Saturation ABG Base Excess -3.5 L ABG Hemoglobin Oxyhemoglobin Potassium Chloride Carbon Dioxide BUN Creatinine Glucose POC Glucose 177 H 265 H Lactic Acid Phosphorus Magnesium Ferritin AST ALT Lactate Dehydrogenase C-Reactive Protein NT-Pro-B Natriuret Pep Albumin Triglycerides Urine Creatinine Coronavirus (PCR) 10/04/19 10/04/19 10/04/19 16:30 16:30 18:04 WBC 21.2 H RDW 16.0 H Plt Count 93 L Seg Neuts % (Manual) 92.0 H Lymphocytes % (Manual) 3.0 L Nucleated RBC % 4.0 H Seg Neutrophils # Man 19.5 H Lymphocytes # (Manual) 0.6 L Monocytes # (Manual) 1.1 H INR D-Dimer ABG pH ABG pO2 ABG HCO3 ABG O2 Saturation ABG Base Excess ABG Hemoglobin Oxyhemoglobin Potassium Chloride 109.0 H Carbon Dioxide 21 L BUN 94 H Creatinine 2.3 H Glucose 345 H POC Glucose 333 H Lactic Acid Phosphorus Magnesium Ferritin AST ALT Lactate Dehydrogenase C-Reactive Protein NT-Pro-B Natriuret Pep Albumin Triglycerides Urine Creatinine Coronavirus (PCR) 10/04/19 10/04/19 10/05/19 18:50 23:19 04:00 WBC RDW Plt Count Seg Neuts % (Manual) Lymphocytes % (Manual) Nucleated RBC % Seg Neutrophils # Man Lymphocytes # (Manual) Monocytes # (Manual) INR D-Dimer ABG pH 7.322 L 7.223 L ABG pO2 183.3 H 93.7 H ABG HCO3 18.1 L 19.4 L ABG O2 Saturation 99.1 H ABG Base Excess -7.2 L -8.3 L ABG Hemoglobin 11.8 L Oxyhemoglobin Potassium Chloride Carbon Dioxide BUN Creatinine Glucose POC Glucose 366 H Lactic Acid Phosphorus Magnesium Ferritin AST ALT Lactate Dehydrogenase C-Reactive Protein NT-Pro-B Natriuret Pep Albumin Triglycerides Urine Creatinine Coronavirus (PCR) 10/05/19 10/05/19 10/05/19 05:05 06:00 06:00 WBC 18.6 H RDW 16.6 H Plt Count 78 L Seg Neuts % (Manual) 95.0 H Lymphocytes % (Manual) 0 L Nucleated RBC % 4.0 H Seg Neutrophils # Man 17.7 H Lymphocytes # (Manual) 0.0 L Monocytes # (Manual) INR D-Dimer ABG pH ABG pO2 ABG HCO3 ABG O2 Saturation ABG Base Excess ABG Hemoglobin Oxyhemoglobin Potassium Chloride Carbon Dioxide BUN Creatinine Glucose POC Glucose 362 H Lactic Acid Phosphorus Magnesium Ferritin AST ALT Lactate Dehydrogenase C-Reactive Protein NT-Pro-B Natriuret Pep Albumin Triglycerides 518 H Urine Creatinine Coronavirus (PCR) 10/05/19 06:00 WBC RDW Plt Count Seg Neuts % (Manual) Lymphocytes % (Manual) Nucleated RBC % Seg Neutrophils # Man Lymphocytes # (Manual) Monocytes # (Manual) INR D-Dimer ABG pH ABG pO2 ABG HCO3 ABG O2 Saturation ABG Base Excess ABG Hemoglobin Oxyhemoglobin Potassium 5.2 H Chloride 110.9 H Carbon Dioxide 17 L BUN 101 H Creatinine 3.2 H Glucose 368 H POC Glucose Lactic Acid Phosphorus Magnesium Ferritin AST ALT Lactate Dehydrogenase C-Reactive Protein NT-Pro-B Natriuret Pep Albumin Triglycerides Urine Creatinine Coronavirus (PCR) Allied health notes reviewed: RT
--- NOTE | 2019-10-05 16:10 | Progress Note ---
Assessment and Plan Cultures: 10/01/2019 coronavirus PCR: Positive 10/01/2019 blood culture: CoNS in 1/4 bottles 10/01/2019 tracheal aspirate culture: No growth A/P: 64-year-old female with diabetes, hypertension admitted with: #Bilateral pneumonia: Secondary to COVID-19. Inflammatory markers are significantly elevated. s/p Actemra on 10/01/2019. Continue steroids. Creatinine elevated, not a candidate for Remdesivir #Acute hypoxic respiratory failure: On mechanical ventilation. #Mild transaminitis: Likely secondary to COVID-19 #CoNS bacteremia: CoNS in 1/4 bottles, likely a contaminant. #FANI: creatinine high. Recs: Continue steroids d-dimer very high, continue with full anticoagulation Creatinine elevated, hence, not a candidate for Remdesivir Continue Ceftriaxone, azithromycin for total 5 days trend ferritin, d-dimer, CRP every 2 days for risk stratification and to assess disease progression Consider enrollment for convalescent plasma Ashly Booker MD, FACP [facility] ([facility] C: [phone] O: [phone] F: [phone] Subjective Date of service: 10/05/19 Principal diagnosis: Ac. hypoxemic resp failure; ARDS; COVID-19 virus infxn; PNA; Severe sepsis Interval history: No fever. Remains intubated, sedated, on the vent. Objective - Exam Narrative Exam: Physical Exam (reviewed in chart due to PPE conservation) Constitutional: intubated, sedated, on the vent Head, Ears, Nose: normocephalic, atraumatic Eyes: limited due to PPE conservation strategy Neck: intubated Oral: intubated Cardiovascular: limited due to PPE conservation strategy Respiratory: limited due to PPE conservation strategy GI: limited due to PPE conservation strategy Musculoskeletal: limited due to PPE conservation strategy Skin: limited due to PPE conservation strategy Hem/Lymphatic: limited due to PPE conservation strategy Psych: no agitation Neurological: sedated, intubated, on the vent, exam limited - Constitutional Vitals: Vital Signs Temp Pulse Resp BP Pulse Ox 97.5 F L 77 30 H 76/43 100 10/05/19 15:09 10/05/19 15:15 10/05/19 15:15 10/05/19 15:15 07/10/20 15:15 Temperature -Last 24 Hours Temperature 97.5 F Temperature 97.9 F Temperature 97.7 F Temperature 97.5 F Temperature 97.5 F Temperature 97.7 F - Labs CBC & Chem 7: 10/05/19 06:00 10/05/19 06:00 Labs: Abnormal lab results 10/04/19 10/04/19 10/04/19 Range/Units 16:30 16:30 18:04 WBC 21.2 H (4.5-11.0) K/mm3 RDW 16.0 H (13.2-15.2) % Plt Count 93 L (140-440) K/mm3 Seg Neuts % (Manual) 92.0 H (40.0-70.0) % Lymphocytes % (Manual) 3.0 L (13.4-35.0) % Nucleated RBC % 4.0 H (0.0-0.9) % Seg Neutrophils # Man 19.5 H (1.8-7.7) K/mm3 Lymphocytes # (Manual) 0.6 L (1.2-5.4) K/mm3 Monocytes # (Manual) 1.1 H (0.0-0.8) K/mm3 D-Dimer (0-234) ng/mlDDU ABG pH (7.350-7.450) pH Units ABG pO2 (80.0-90.0) mm Hg ABG HCO3 (20.0-26.0) mmol/L ABG O2 Saturation (95.0-99.0) % ABG Base Excess (-2.0-3.0) mmol/L ABG Hemoglobin (12.0-16.0) gm/dl Potassium (3.6-5.0) mmol/L Chloride 109.0 H (98-107) mmol/L Carbon Dioxide 21 L (22-30) mmol/L BUN 94 H (7-17) mg/dL Creatinine 2.3 H (0.7-1.2) mg/dL Glucose 345 H (65-100) mg/dL POC Glucose 333 H (70-105) Triglycerides (2-149) mg/dL Urine WBC (Auto) (0.0-6.0) /HPF 10/04/19 10/04/19 10/05/19 Range/Units 18:50 23:19 04:00 WBC (4.5-11.0) K/mm3 RDW (13.2-15.2) % Plt Count (140-440) K/mm3 Seg Neuts % (Manual) (40.0-70.0) % Lymphocytes % (Manual) (13.4-35.0) % Nucleated RBC % (0.0-0.9) % Seg Neutrophils # Man (1.8-7.7) K/mm3 Lymphocytes # (Manual) (1.2-5.4) K/mm3 Monocytes # (Manual) (0.0-0.8) K/mm3 D-Dimer (0-234) ng/mlDDU ABG pH 7.322 L 7.223 L (7.350-7.450) pH Units ABG pO2 183.3 H 93.7 H (80.0-90.0) mm Hg ABG HCO3 18.1 L 19.4 L (20.0-26.0) mmol/L ABG O2 Saturation 99.1 H (95.0-99.0) % ABG Base Excess -7.2 L -8.3 L (-2.0-3.0) mmol/L ABG Hemoglobin 11.8 L (12.0-16.0) gm/dl Potassium (3.6-5.0) mmol/L Chloride (98-107) mmol/L Carbon Dioxide (22-30) mmol/L BUN (7-17) mg/dL Creatinine (0.7-1.2) mg/dL Glucose (65-100) mg/dL POC Glucose 366 H (70-105) Triglycerides (2-149) mg/dL Urine WBC (Auto) (0.0-6.0) /HPF 10/05/19 10/05/19 10/05/19 Range/Units 05:05 06:00 06:00 WBC 18.6 H (4.5-11.0) K/mm3 RDW 16.6 H (13.2-15.2) % Plt Count 78 L (140-440) K/mm3 Seg Neuts % (Manual) 95.0 H (40.0-70.0) % Lymphocytes % (Manual) 0 L (13.4-35.0) % Nucleated RBC % 4.0 H (0.0-0.9) % Seg Neutrophils # Man 17.7 H (1.8-7.7) K/mm3 Lymphocytes # (Manual) 0.0 L (1.2-5.4) K/mm3 Monocytes # (Manual) (0.0-0.8) K/mm3 D-Dimer (0-234) ng/mlDDU ABG pH (7.350-7.450) pH Units ABG pO2 (80.0-90.0) mm Hg ABG HCO3 (20.0-26.0) mmol/L ABG O2 Saturation (95.0-99.0) % ABG Base Excess (-2.0-3.0) mmol/L ABG Hemoglobin (12.0-16.0) gm/dl Potassium (3.6-5.0) mmol/L Chloride (98-107) mmol/L Carbon Dioxide (22-30) mmol/L BUN (7-17) mg/dL Creatinine (0.7-1.2) mg/dL Glucose (65-100) mg/dL POC Glucose 362 H (70-105) Triglycerides 518 H (2-149) mg/dL Urine WBC (Auto) (0.0-6.0) /HPF 10/05/19 10/05/19 10/05/19 Range/Units 06:00 10:17 12:10 WBC (4.5-11.0) K/mm3 RDW (13.2-15.2) % Plt Count (140-440) K/mm3 Seg Neuts % (Manual) (40.0-70.0) % Lymphocytes % (Manual) (13.4-35.0) % Nucleated RBC % (0.0-0.9) % Seg Neutrophils # Man (1.8-7.7) K/mm3 Lymphocytes # (Manual) (1.2-5.4) K/mm3 Monocytes # (Manual) (0.0-0.8) K/mm3 D-Dimer > 84529 H (0-234) ng/mlDDU ABG pH (7.350-7.450) pH Units ABG pO2 (80.0-90.0) mm Hg ABG HCO3 (20.0-26.0) mmol/L ABG O2 Saturation (95.0-99.0) % ABG Base Excess (-2.0-3.0) mmol/L ABG Hemoglobin (12.0-16.0) gm/dl Potassium 5.2 H (3.6-5.0) mmol/L Chloride 110.9 H (98-107) mmol/L Carbon Dioxide 17 L (22-30) mmol/L BUN 101 H (7-17) mg/dL Creatinine 3.2 H (0.7-1.2) mg/dL Glucose 368 H (65-100) mg/dL POC Glucose (70-105) Triglycerides (2-149) mg/dL Urine WBC (Auto) 25.0 H (0.0-6.0) /HPF
[2019-10-05 17:33] LABS: Creatinine,Urine 179.4 mg/dL (0.1-20.0)
[2019-10-05 17:47] LABS: ABG Base Excess -3.8 mmol/L (-2.0-3.0); ABG HCO3 21.1 mmol/L (20.0-26.0); ABG PH 7.361 pH Units (7.350-7.450)
[2019-10-05 17:50] LABS: ABG Methemoglobin TNR % (0.0-1.5); ABG Oxygen Saturation TNR % (95.0-99.0); ABG PO2 TNR mm Hg (80.0-90.0)
[2019-10-05 18:08] LABS: Creatinine,Urine 179.4 mg/dL (0.1-20.0); Microalbumin/Creatinine Ratio 37.3 ug/mg
[2019-10-06] MEDS: SODIUM BICARBONATE 150 MEQ in WATER FOR INJECTION (PF) 1,000 ML IV SCH (00:02)
[2019-10-06] MEDS: INSULIN LISPRO 100 UNIT/ML SUB-Q SCH ×5 (00:46→18:53)
[2019-10-06 05:25] LABS: ABG Base Excess -2.4 mmol/L (-2.0-3.0); ABG HCO3 23.5 mmol/L (20.0-26.0); ABG Methemoglobin 0.6 % (0.0-1.5); ABG Oxygen Saturation 96.2 % (95.0-99.0); ABG PCO2 44.5 mm Hg; ABG PH 7.339 pH Units (7.350-7.450); ABG PO2 86.2 mm Hg (80.0-90.0)
[2019-10-06] MEDS: methylPREDNISolone Sod Succinate 40 MG/1 ML INJ IV SCH ×3 (05:55→21:12)
[2019-10-06] MEDS: fentaNYL DRIP Premix 2,000 MCG/100 ML BAG IV SCH ×3 (06:19→21:11)
[2019-10-06] MEDS: NORepinephrine/NS 4 MG-250 ML 4 MG/250 ML BAG IV SCH ×2 (07:00→23:52)
[2019-10-06 07:14] LABS: Hemoglobin 11.5 gm/dl (10.1-14.3); Mean Corpuscular HGB Conc 33 % (30-34); Mean Corpuscular Volume 91 fl (79-97); Red Blood Count 3.87 M/mm3 (3.65-5.03); Red Cell Distribution Width 15.6 % (13.2-15.2)
[2019-10-06 07:16] LABS: Platelet Count 79 K/mm3 (140-440)
[2019-10-06 07:43] LABS: Calcium 7.8 mg/dL (8.4-10.2)
[2019-10-06] MEDS: MIDAZOLAM 100 MG in SODIUM CHLORIDE 0.9% 80 ML IV SCH ×2 (09:06→18:50)
--- NOTE | 2019-10-06 09:22 | XRay Report ---
CHEST 1 VIEW INDICATION: follow up respiratory failure. COMPARISON: Previous day. FINDINGS: Support devices: Unchanged. Heart: Within normal limits. Lungs/Pleura: Bilateral interstitial/airspace disease left greater than right remains with mild inter aimee improvement. Aeration has decreased the left base. Additional findings: None. IMPRESSION: 1. Mild improvement in bilateral interstitial/airspace disease left greater than right. 2. Decreasing aeration left base. Signer Name: Mono Mendoza MD Signed: 10/06/2019 9:18 AM Workstation Name: [id number]
--- NOTE | 2019-10-06 10:06 | Progress Note ---
Assessment and Plan Assessment and plan: Sepsis. Continue IV antibiotics per ID. Follow-up blood cultures. Given elevated procalcitonin level we will continue with IV antibiotics Bilateral pneumonia. Etiology secondary COVID-19. Continue to follow up serial chest x-ray. ARDS. Continue vent per pulmonary. COVID 19 infection. Actemra x1 and remdesivir. Continue to trend inflammatory markers. Consider convalescent plasma therapy per ID. COVID coagulopathy. Continue with full anticoagulation. Acute hypoxic respiratory failure. Etiology secondary to above. Continue on mechanical ventilation per pulmonary recommendations. Transaminitis. Etiology secondary to sepsis/COVID. Continue to trend LFTs. Acute kidney injury. Etiology secondary to ATN/sepsis superimposed on vasomotor nephropathy. Continue to follow BMP Coag negative staph bacteremia. Continue IV antibiotics. 10/03/2019. Patient's daughter Evelio Plascencia has consented to convalescent plasma therapy. Await type and screen for patient enrollment. Continue mechanical ventilation per pulmonary. Patient currently AC mode ventilation rate of 20, tidal volume 450 FiO2 70% and PEEP of 12. Continue Solu-Medrol 40 mg IV daily. Wean sedation of propofol and fentanyl as needed. 10/04/2019. Convalescent plasma enrollment form has been submitted. Patient currently on mechanical ventilation AC mode rate 20, tidal volume 450 FiO2 100%. Continue IV Solu-Medrol. Wean sedation of propofol and fentanyl as needed. Patient not a candidate of remdesivir secondary to elevated creatinine. Continue ceftriaxone and azithromycin for total of 5 days. Continue to trend inflammatory markers. Prognosis is extremely guarded. 10/05/2019. Await convalescent plasma. Continue IV steroids, ceftriaxone, azithromycin and full anticoagulation. Creatinine elevated and thus not a candidate for Remdesivir. Patient actually with worsening creatinine secondary to acute kidney injury with ATN in the setting of septic shock superimposed on vasomotor nephropathy. Continue pressors to maintain MAP> 65. 10/06/2019. Patient currently on AC mode ventilation rate 30, tidal volume 450 FiO2 60% and PEEP of 18. Await convalescent plasma. Continue IV steroids, ceftriaxone, azithromycin and full anticoagulation. Creatinine elevated and thus not a candidate for Remdesivir. The high probability of a clinically significant, sudden or life threatening deterioration of the [respiratory] system(s) required my full and direct attention, intervention and personal management. The aggregate critical care time was [32] minutes. This time is in addition to time spent performing reported procedures but includes the following: [x] Data Review and interpretation [x] Patient assessment and monitoring of vital signs [x] Documentation [x] Medication orders and management History Interval history: The patient is a 64-year-old female who came into the emergency room with complaints of shortness of breath and cough. She has a history of diabetes and hypertension. Due to significant hypoxia, she was intubated and placed on mechanical ventilation. COVID-19 test is positive. Additionally, her labs show ferritin 1646, procalcitonin 1.73, LDH 766, CRP 18.6, mild transaminitis, d- dimer 1957. Hospitalist Physical - Constitutional Vitals: Temp Pulse Resp BP Pulse Ox 98.1 F 87 30 H 127/63 95 10/06/19 08:00 10/06/19 08:00 10/06/19 06:00 10/06/19 08:00 10/06/19 08:00 General appearance: Present: well-nourished, other (Patient on mechanical ventilation) - EENT Eyes: Present: PERRL, EOM intact ENT: hearing intact, clear oral mucosa, dentition normal - Neck Neck: Present: supple, normal ROM - Respiratory Respiratory effort: normal Respiratory: bilateral: CTA - Cardiovascular Rhythm: regular Heart Sounds: Present: S1 & S2. Absent: gallop, rub - Extremities Extremities: no ischemia, No edema, Full ROM - Abdominal General gastrointestinal: soft, non-tender, non-distended, normal bowel sounds - Integumentary Integumentary: Present: clear, warm, dry - Neurologic Neurologic: CNII-XII intact, moves all extremities HEART Score - HEART Score Troponin: Troponin T 0.018 ng/mL (0.00-0.029) 10/01/19 05:36 Results - Labs CBC & Chem 7: 10/06/19 06:07 10/06/19 06:07 Labs: Laboratory Last Values WBC 20.5 K/mm3 (4.5-11.0) H 10/06/19 06:07 RBC 3.87 M/mm3 (3.65-5.03) 10/06/19 06:07 Hgb 11.5 gm/dl (10.1-14.3) 10/06/19 06:07 Hct 35.0 % (30.3-42.9) 10/06/19 06:07 MCV 91 fl (79-97) 10/06/19 06:07 MCH 30 pg (28-32) 10/06/19 06:07 MCHC 33 % (30-34) 10/06/19 06:07 RDW 15.6 % (13.2-15.2) H 10/06/19 06:07 Plt Count 79 K/mm3 (140-440) L 10/06/19 06:07 Lymph % (Auto) Medical Office Technician 10/01/19 06:31 [place] % (Auto) Medical Office Technician 10/01/19 06:31 Eos % (Auto) Medical Office Technician 10/01/19 06:31 Baso % (Auto) Medical Office Technician 10/01/19 06:31 Lymph # Medical Office Technician 10/01/19 06:31 [place] # Medical Office Technician 10/01/19 06:31 Eos # Medical Office Technician 10/01/19 06:31 Baso # Medical Office Technician 10/01/19 06:31 Add Manual Diff Complete 10/05/19 06:00 Total Counted 100 10/05/19 06:00 Seg Neutrophils % Medical Office Technician 10/06/19 06:07 Seg Neuts % (Manual) 95.0 % (40.0-70.0) H 10/05/19 06:00 Band Neutrophils % 1.0 % 10/05/19 06:00 Lymphocytes % (Manual) 0 % (13.4-35.0) L 10/05/19 06:00 Reactive Lymphs % (Man) 1.0 % 10/05/19 06:00 Monocytes % (Manual) 0 % (0.0-7.3) 10/05/19 06:00 Eosinophils % (Manual) 0 % (0.0-4.3) 10/05/19 06:00 Basophils % (Manual) 0 % (0.0-1.8) 10/05/19 06:00 Metamyelocytes % 1.0 % 10/05/19 06:00 Myelocytes % 2.0 % 10/05/19 06:00 Promyelocytes % 0 % 10/05/19 06:00 Blast Cells % 0 % 10/05/19 06:00 Nucleated RBC % 4.0 % (0.0-0.9) H 10/05/19 06:00 Seg Neutrophils # Medical Office Technician 10/01/19 06:31 Seg Neutrophils # Man 17.7 K/mm3 (1.8-7.7) H 10/05/19 06:00 Band Neutrophils # 0.2 K/mm3 10/05/19 06:00 Lymphocytes # (Manual) 0.0 K/mm3 (1.2-5.4) L 10/05/19 06:00 Abs React Lymphs (Man) 0.2 K/mm3 10/05/19 06:00 Monocytes # (Manual) 0.0 K/mm3 (0.0-0.8) 10/05/19 06:00 Eosinophils # (Manual) 0.0 K/mm3 (0.0-0.4) 10/05/19 06:00 Basophils # (Manual) 0.0 K/mm3 (0.0-0.1) 10/05/19 06:00 Metamyelocytes # 0.2 K/mm3 10/05/19 06:00 Myelocytes # 0.4 K/mm3 10/05/19 06:00 Promyelocytes # 0.0 K/mm3 10/05/19 06:00 Blast Cells # 0.0 K/mm3 10/05/19 06:00 WBC Morphology Not Reportable 10/05/19 06:00 Hypersegmented Neuts Not Reportable 10/05/19 06:00 Hyposegmented Neuts Not Reportable 10/05/19 06:00 Hypogranular Neuts Not Reportable 10/05/19 06:00 Smudge Cells Not Reportable 10/05/19 06:00 Toxic Granulation Not Reportable 10/05/19 06:00 Toxic Vacuolation Not Reportable 10/05/19 06:00 Dohle Bodies Not Reportable 10/05/19 06:00 Pelger-Huet Anomaly Not Reportable 10/05/19 06:00 Dona Rods Not Reportable 10/05/19 06:00 Platelet Estimate Consistent w auto 10/05/19 06:00 Clumped Platelets Not Reportable 10/05/19 06:00 Plt Clumps, EDTA Not Reportable 10/05/19 06:00 Large Platelets Not Reportable 10/05/19 06:00 Giant Platelets Not Reportable 10/05/19 06:00 Platelet Satelliting Not Reportable 10/05/19 06:00 Plt Morphology Comment Not Reportable 10/05/19 06:00 RBC Morphology Not Reportable 10/05/19 06:00 Dimorphic RBCs Not Reportable 10/05/19 06:00 Polychromasia Not Reportable 10/05/19 06:00 Hypochromasia Not Reportable 10/05/19 06:00 Poikilocytosis Not Reportable 10/05/19 06:00 Anisocytosis 1+ 10/05/19 06:00 Microcytosis Not Reportable 10/05/19 06:00 Macrocytosis Few 10/05/19 06:00 Spherocytes Not Reportable 10/05/19 06:00 Pappenheimer Bodies Not Reportable 10/05/19 06:00 Sickle Cells Not Reportable 10/05/19 06:00 Target Cells Not Reportable 10/05/19 06:00 Tear Drop Cells Not Reportable 10/05/19 06:00 Ovalocytes Not Reportable 10/05/19 06:00 Helmet Cells Not Reportable 10/05/19 06:00 [place] Bodies Not Reportable 10/05/19 06:00 [place] Rings Not Reportable 10/05/19 06:00 [place] Cells Not Reportable 10/05/19 06:00 Bite Cells Not Reportable 10/05/19 06:00 Crenated Cell Not Reportable 10/05/19 06:00 Elliptocytes Not Reportable 10/05/19 06:00 Acanthocytes (Spur) Not Reportable 10/05/19 06:00 Rouleaux Not Reportable 10/05/19 06:00 Hemoglobin C Crystals Not Reportable 10/05/19 06:00 Schistocytes Rare 10/05/19 06:00 Malaria parasites Not Reportable 10/05/19 06:00 Cornelio Bodies Not Reportable 10/05/19 06:00 Hem Pathologist Commnt No 10/05/19 06:00 PT 14.5 Sec. (12.2-14.9) 10/01/19 05:36 INR 1.15 (0.87-1.13) H 10/01/19 05:36 APTT 28.6 Sec. (24.2-36.6) 10/01/19 05:36 D-Dimer > 04144 ng/mlDDU (0-234) H 10/05/19 12:10 ABG pH 7.339 pH Units (7.350-7.450) L 10/06/19 03:32 ABG pCO2 44.5 mm Hg 10/06/19 03:32 ABG pO2 86.2 mm Hg (80.0-90.0) 10/06/19 03:32 ABG HCO3 23.5 mmol/L (20.0-26.0) 10/06/19 03:32 ABG O2 Saturation 96.2 % (95.0-99.0) 10/06/19 03:32 ABG O2 Content 15.4 (0.0-44) 10/06/19 03:32 ABG Base Excess -2.4 mmol/L (-2.0-3.0) L 10/06/19 03:32 ABG Hemoglobin 11.5 gm/dl (12.0-16.0) L 10/06/19 03:32 ABG Carboxyhemoglobin 1.2 % (0.0-5.0) 10/06/19 03:32 ABG Methemoglobin 0.6 % (0.0-1.5) 10/06/19 03:32 Oxyhemoglobin 94.5 % (95.0-99.0) L 10/06/19 03:32 FiO2 60 % 10/06/19 03:32 Sodium 147 mmol/L (137-145) H 10/06/19 06:07 Potassium 4.2 mmol/L (3.6-5.0) 10/06/19 06:07 Chloride 108.6 mmol/L (98-107) H 10/06/19 06:07 Carbon Dioxide 22 mmol/L (22-30) 10/06/19 06:07 Anion Gap 21 mmol/L 10/06/19 06:07 BUN 102 mg/dL (7-17) H 10/06/19 06:07 Creatinine 3.2 mg/dL (0.7-1.2) H 10/06/19 06:07 Estimated GFR 18 ml/min 10/06/19 06:07 BUN/Creatinine Ratio 32 % 10/06/19 06:07 Glucose 305 mg/dL (65-100) H 10/06/19 06:07 POC Glucose 310 (70-105) H 10/06/19 06:33 Ketones Quantitative Negative (Negative) 10/01/19 06:31 Lactic Acid 1.80 mmol/L (0.7-2.0) 10/02/19 08:04 Calcium 7.8 mg/dL (8.4-10.2) L 10/06/19 06:07 Phosphorus 4.70 mg/dL (2.5-4.5) H 10/01/19 12:45 Magnesium 2.50 mg/dL (1.7-2.3) H 10/01/19 12:45 Ferritin 1646.0 ng/mL (13.0-400.0) H 10/01/19 12:24 Total Bilirubin 0.30 mg/dL (0.1-1.2) 10/01/19 05:36 Direct Bilirubin < 0.2 mg/dL (0-0.2) 10/01/19 05:36 Indirect Bilirubin 0.1 mg/dL 10/01/19 05:36 AST 54 units/L (5-40) H 10/01/19 05:36 ALT 64 units/L (7-56) H 10/01/19 05:36 Alkaline Phosphatase 94 units/L (35-129) 10/01/19 05:36 Lactate Dehydrogenase 766 units/L (91-180) H 10/01/19 12:24 Troponin T 0.018 ng/mL (0.00-0.029) 10/01/19 05:36 C-Reactive Protein 18.60 mg/dL (0.00-1.30) H 10/01/19 12:24 NT-Pro-B Natriuret Pep 1525 pg/mL (0-900) H 10/01/19 12:45 Total Protein 6.6 g/dL (6.3-8.2) 10/01/19 05:36 Albumin 3.4 g/dL (3.9-5) L 10/01/19 05:36 Albumin/Globulin Ratio 1.1 % 10/01/19 05:36 Triglycerides 467 mg/dL (2-149) H 10/06/19 06:07 Procalcitonin 1.73 ng/mL (<0.15) 10/01/19 12:24 Urine Color Yellow (Yellow) 10/05/19 10:17 Urine Turbidity Cloudy (Clear) 10/05/19 10:17 Urine pH 5.0 (5.0-7.0) 10/05/19 10:17 Ur Specific [place] 1.018 (1.003-1.030) 10/05/19 10:17 Urine Protein 30 mg/dl mg/dL (Negative) 10/05/19 10:17 Urine Glucose (UA) Neg mg/dL (Negative) 10/05/19 10:17 Urine Ketones Neg mg/dL (Negative) 10/05/19 10:17 Urine Blood Mod (Negative) 10/05/19 10:17 Urine Nitrite Neg (Negative) 10/05/19 10:17 Urine Bilirubin Neg (Negative) 10/05/19 10:17 Urine Urobilinogen < 2.0 mg/dL (<2.0) 10/05/19 10:17 Ur Leukocyte Esterase Neg (Negative) 10/05/19 10:17 Urine WBC (Auto) 25.0 /HPF (0.0-6.0) H 10/05/19 10:17 Urine RBC (Auto) 109.0 /HPF (0.0-6.0) 10/05/19 10:17 U Epithel Cells (Auto) 3.0 /HPF (0-13.0) 10/05/19 10:17 Urine Bacteria (Auto) 1+ /HPF (Negative) 10/05/19 10:17 Urine Mucus Few /HPF 10/05/19 10:17 Urine Creatinine 179.4 mg/dL (0.1-20.0) H 10/05/19 10:16 Urine Microalbumin 6.7 mg/dL (0.1-34.0) 10/01/19 09:10 Microalb/Creat Ratio 37.3 ug/mg 10/01/19 09:10 Urine Sodium 10 mmol/L 10/05/19 10:16 Urine Total Protein 66 mg/dL (5-11.8) H 10/05/19 10:16 Coronavirus (PCR) Positive (Negative) A 10/01/19 Unknown Blood Type B POSITIVE 10/03/19 13:50 Antibody Screen Negative 10/03/19 13:50 Microbiology: Microbiology 10/01/19 05:38 Peripheral/Venous Blood Culture - Final NO GROWTH AFTER 5 DAYS 10/05/19 04:22 Tracheal Aspirate Sputum Culture - Preliminary 10/01/19 05:36 Peripheral/Venous Blood Culture - Preliminary Coag Negative Staphylococcus - Diagnostic Impressions Diagnostic Impressions: Echocardiogram 10/02/19 19:48 Transthoracic Echocardiogram Indication: Elevated BNP BP: 78/37 HR: 75 Conclusions *Global left ventricular systolic function is normal. *The estimated ejection fraction is 50-55%. *The right ventricular global systolic function is normal. *There is mild to moderate tricuspid regurgitation. *The right ventricular systolic pressure is calculated at 75 mmHg. *There is no evidence of mitral regurgitation. *There is no evidence of aortic regurgitation. *There is trace pulmonic regurgitation. *There is no pericardial effusion. *There is evidence of severe pulmonary hypertension. Findings Left Ventricle: Global left ventricular wall motion and contractility are within normal limits. Global left ventricular systolic function is normal. The estimated ejection fraction is 50-55%. Abnormal left ventricular diastolic filling is observed, consistent with impaired relaxation. Left Atrium: The left atrial chamber size is normal. Right Ventricle: The right ventricular cavity size is normal. The right ventricular global systolic function is normal. Right Atrium: The right atrial cavity size is normal. Aortic Valve: The aortic valve leaflets are mildly thickened. There is no evidence of aortic regurgitation. Mitral Valve: The mitral valve leaflets are mildly thickened. There is no evidence of mitral regurgitation. Tricuspid Valve: The tricuspid valve leaflets are normal. There is mild to moderate tricuspid regurgitation. The right ventricular systolic pressure is calculated at 75 mmHg. There is evidence of severe pulmonary hypertension. Pulmonic Valve: The pulmonic valve appears normal. There is trace pulmonic regurgitation. Pericardium: There is no pericardial effusion. Aorta: The aorta appears normal. Venous: The inferior vena cava appears normal. Measurements Chambers 2D Name Value Normal Range IVSd (2D) 1.1 cm (0.6 - 1.1) LVPWd (2D) 1.03 cm (0.6 - 1.1) IVS:LVPW ratio (2D) 1.07 ratio - LVIDd (2D) 2.7 cm (3.7 - 5.6) LVIDs (2D) 2.02 cm (2 - 3.8) LV FS (Teichholz) (2D) 25.2 % - LV FS (cube) (2D) 25.2 % - EF Teichholz (2D) 51.5 % - Ao root diameter (2D) 2.4 cm (2 - 3.7) LA dimension (AP) 2D 2.9 cm (1.9 - 4) LA:Ao ratio (2D) 1.21 ratio - Volumes/Mass Name Value Normal Range LA ESV SP 4CH (MOD) 23 ml - LA ESV SP 2CH (MOD) 21 ml - LA ESV BP (MOD) 22 ml - LA ESV BP (MOD) index 13.6 ml/m2 - LV EDV SP 4CH (MOD) 54 ml - LV ESV SP 4CH (MOD) 20 ml - EF SP 4CH (MOD) 63 % - LV EDV SP 2CH (MOD) 48 ml - LV ESV SP 2CH (MOD) 20 ml - EF SP 2CH (MOD) 58 % - LV EDV BP 51 ml - LV ESV BP 20 ml - BP EF (MOD) 61 % - Diastolic/Systolic Function Name Value Normal Range MV E-wave Vmax 0.94 m/sec - MV deceleration time 218 msec - MV A-wave Vmax 1.06 m/sec - MV E:A ratio 0.9 ratio - LV septal e' Vmax 0.08 m/sec - LV lateral e' Vmax 0.08 m/sec - LV E:e' septal ratio 11.3 ratio - LV E:e' lateral ratio 11.4 ratio - Aortic Valve Name Value Normal Range AV VTI 29.3 cm - AV mean gradient 8 mmHg - LVOT diameter 2 cm - LVOT VTI 29.7 cm - LVOT mean gradient 6 mmHg - SV LVOT 93 ml - YASMEEN (continuity VTI) 3.18 cm2 - Tricuspid Valve Name Value Normal Range TR Vmax 4.25 m/sec - TR peak gradient 72 mmHg - RAP 3 mmHg - RVSP 75 mmHg - Pulmonic Valve/Qp:Qs Name Value Normal Range PV Vmax 1.11 m/sec - PV peak gradient 5 mmHg - [place] end-diastolic Vmax 1.71 m/sec - PV acceleration time 77 msec - Alexis/IV: Voiding Method Indwelling Catheter IV Catheter Type [Left Upper PICC Line arm] IV Catheter Type [Left Forearm INT / Saline Lock ] IV Catheter Type [Right Hand] Peripheral IV IV Catheter Type [Left Foot] INT / Saline Lock IV Catheter Type [Right Peripheral IV Forearm] Active Medications - Current Medications Current Medications: Generic Name Dose Route Start Last Admin Trade Name Freq PRN Reason Stop Dose Admin Acetaminophen 650 mg 07/06/20 09:10 Tylenol PO Q6H PRN Pain MILD(1-3)/Fever >100.5/PALOMARES Albuterol 2.5 mg 10/01/19 09:10 Proventil IH Q3HRT PRN Shortness Of Breath Lipase/Protease/Amylase 1 each 10/02/19 11:44 Pancreaze 10,500 Unit FEEDTUBE PRN PRN For Clogged Feeding Tube Apixaban 5 mg 10/05/19 11:00 10/05/19 21:04 Eliquis PO 5 mg Q12HR CLARKE Administration Ascorbic Acid 500 mg 10/01/19 16:00 10/05/19 21:04 Vitamin C PO 500 mg BID CLARKE Administration Dextrose 50 ml 10/01/19 09:10 D50w (25gm) Syringe IV Q30MIN PRN Hypoglycemia Protocol Famotidine 20 mg 10/04/19 10:00 10/05/19 10:55 Pepcid PO 20 mg DAILY CLARKE Administration Fentanyl 50 mcg 10/01/19 15:03 Sublimaze IV Q10MIN PRN ANALGESIA Hydralazine HCl 10 mg 10/01/19 09:20 10/04/19 10:00 Apresoline IV 10 mg Q4HR PRN Administration Hypertension Hydrophilic Ointment 1 applic 10/01/19 13:33 Vaseline Lip Therapy TP Q2HR PRN Dry Lips Hydrophilic Ointment 1 applic 10/04/19 14:47 Vaseline Lip Therapy TP Q2HR PRN Dry Lips Ceftriaxone Sodium 2 gm in 100 mls @ 200 mls/hr 10/02/19 10:00 10/05/19 10:55 Rocephin/Ns 2 Gm/100 Ml IV 10/06/19 10:29 200 mls/hr Q24HR CLARKE Administration Protocol Propofol 1,000 mg in 100 mls @ 1.905 mls/hr 10/01/19 14:00 10/06/19 09:04 Diprivan 10 Mg/Ml IV 30 mcg/kg/min TITR CLARKE 11.431 mls/hr Titration Protocol 5 MCG/KG/MIN Fentanyl Citrate 2,000 mcg in 100 mls @ 3.175 mls/hr 10/01/19 16:00 10/06/19 06:19 Fentanyl Drip Premix IV 4 mcg/kg/hr TITR CLARKE 12.701 mls/hr Administration Protocol 1 MCG/KG/HR Midazolam HCl 100 mg/ Sodium 100 mls @ 2 mls/hr 10/04/19 15:00 10/06/19 09:06 Chloride IV Infused TITR CLARKE Titration Protocol 2 MG/HR Sodium Chloride 500 mls @ 10 mls/hr 10/04/19 16:00 Nacl 0.9% 500 Ml IV DIRECT CLARKE Norepinephrine 4 mg in 250 mls @ 37.5 mls/hr 10/04/19 18:00 10/06/19 06:19 Levophed Drip 4 Mg/Ns 250 Ml IV Infused TITR CLARKE Titration Protocol 10 MCG/MIN Insulin Human Isoph/Insulin Regular 40 unit 10/05/19 17:00 Humulin 70/30 SUB-Q BIDDIAB CLARKE Insulin Human Lispro 0 unit 10/01/19 12:00 10/06/19 06:25 Humalog SUB-Q 6 unit Q6HR CLARKE Administration Protocol Methylprednisolone Sodium Succinate 40 mg 10/03/19 14:00 10/06/19 05:55 Solu-Medrol IV 40 mg Q8HR CLARKE Administration Metoclopramide HCl 10 mg 10/01/19 09:10 Reglan IV Q6H PRN Nausea And Vomiting Midazolam HCl 2 mg 10/04/19 14:47 Versed IV Q10MIN PRN Sedation Multi-Ingred Cream/Lotion/Oil/Oint 1 applic 10/01/19 13:33 Artificial Tears Ophth Oint OU Q4HR PRN Dry Eye(s) Multi-Ingred Cream/Lotion/Oil/Oint 1 applic 10/04/19 14:47 Artificial Tears Ophth Oint OU Q4HR PRN Dry Eye(s) Naloxone HCl 0.1 mg 10/01/19 09:10 Naloxone IV Q2MIN PRN Res Rate </= 8 or 02 SAT < 92% Simple Syrup 15 ml 10/02/19 11:44 Simple Syrup FEEDTUBE PRN PRN Hypoglycemia Simple Syrup 30 ml 10/02/19 11:44 Simple Syrup FEEDTUBE PRN PRN Hypoglycemia Sodium Bicarbonate 325 mg 10/02/19 11:44 Sodium Bicarbonate FEEDTUBE PRN PRN For Clogged Feeding Tube Sodium Chloride 10 ml 10/01/19 10:00 10/05/19 21:05 Sodium Chloride Flush Syringe 10 Ml IV 10 ml BID CLARKE Administration Sodium Chloride 10 ml 10/01/19 09:10 Sodium Chloride Flush Syringe 10 Ml IV PRN PRN LINE FLUSH Sodium Chloride 5 ml 10/04/19 14:47 Nacl 0.9% 500 Ml IV DIRECT PRN [employer] Zinc Sulfate 220 mg 10/01/19 16:00 10/05/19 21:04 Zinc Sulfate PO 220 mg BID CLARKE Administration Nutrition/Malnutrition Assess - Dietary Evaluation Nutrition/Malnutrition Findings: Nutrition Notes Start: 10/01/19 14:13 Freq: Status: Active Protocol: Document 10/04/19 12:42 LM (Rec: 10/04/19 12:56 LM [id number]) Nutrition Notes Need for Assessment generated from: MD Order Initial or Follow up Reassessment Current Diagnosis Acute Kidney Injury,Diabetes, Hypertension Other Pertinent Diagnosis COVID-19 (+) Current Diet Vital AF 1.2 at 45ml/hr Labs/Tests POC glu 265 7/8 BUN 64 Cr 2.1 Pertinent Medications Solumedrol Zinc Height 5 ft 1 in Weight 63.503 kg [place] Body Weight (kg) 47.72 BMI 26.4 Weight Status Overweight Subjective/Other Information MD consult to write/manage TF. Pt will be proned for 8-12 hr . Burn Absent Trauma Absent GI Symptoms None Current % PO Negligible Minimum of two criteria No physical signs of malnutrition #1 Nutrition Diagnosis Inadequate oral intake Diagnosis Progress(for reassessment Continues documentation) Is patient on ventilator? Yes Is Patient Ambulatory and/or Out of Bed No REE-([facility]-confined to bed) 1358.172 Calculation Used for Recommendations [facility] Additional Notes Protein needs are 76-127g (1.2 -2g/kg) Fluid needs are 1ml/kcal Nutrition Intervention Change Diet Order: TF Nutrition Support: Change to Nepro 1.8 at 30ml/hr Flush 130ml q4h When prone Nepro 1.8 at 20ml/ hr for 12 hr Flush 50ml q4h Nepro 1.8 at 40ml/hr for the remaining 12 hr when not prone Flush 90ml q4h Kcal 1,296 Protein (gm) 58 Fluid (mL) 523 Goal #1 Meet at least 75% of kcal and protein needs Anticipated Discharge Needs: Unable to determine at this time Follow-Up By: 10/08/19 Additional Comments F/U for TF change/tolerance
[2019-10-06] MEDS: cefTRIAXone/NS 2 GM/100 ML 2 GM/100 ML BAG IV SCH (10:30)
[2019-10-06] MEDS: APIXABAN 5 MG TAB PO SCH ×2 (10:33→21:12)
[2019-10-06] MEDS: ZINC SULFATE 220 MG CAP PO SCH ×2 (10:33→21:12)
[2019-10-06] MEDS: FAMOTIDINE 20 MG TAB PO SCH (10:33)
[2019-10-06] MEDS: ASCORBIC ACID 500 MG TAB PO SCH ×2 (10:33→21:12)
[2019-10-06] MEDS: AZITHROMYCIN 250 MG TAB PO SCH (10:33)
[2019-10-06] MEDS: INSULIN NPH/REGULAR 70/30 INJ SUB-Q SCH ×5 (10:34→19:54)
[2019-10-06 11:48] LABS: Eosinophils % (Auto) 0.1 % (0.0-4.3); Monocytes # (Auto) 0.9 K/mm3 (0.0-0.8); Monocytes % (Auto) 4.4 % (0.0-7.3)
[2019-10-06 12:25] LABS: Total Cells Counted 100
[2019-10-06 12:26] LABS: Band Neutrophils # (Manual) 0.2 K/mm3; Basophils % (Manual) 0 % (0.0-1.8); Eosinophils % (Manual) 0 % (0.0-4.3); Monocytes % (Manual) 0 % (0.0-7.3); Myelocytes # (Manual) 0.4 K/mm3
[2019-10-06 12:28] LABS: Schistocytes Rare; Spherocytes Few
[2019-10-06 12:29] LABS: Platelet Estimate Consistent w Auto
[2019-10-06 12:52] LABS: ABG Base Excess -2.7 mmol/L (-2.0-3.0); ABG HCO3 24.4 mmol/L (20.0-26.0); ABG PCO2 51.4 mm Hg; ABG PH 7.295 pH Units (7.350-7.450); ABG PO2 48.4 mm Hg (80.0-90.0)
[2019-10-06 12:57] LABS: ABG Methemoglobin 0.8 % (0.0-1.5)
--- NOTE | 2019-10-06 13:04 | Progress Note ---
Assessment and Plan Severe sepsis secondary to COVID COVID pneumonia with ARDS Acute hypoxemic respiratory failure, orally intubated on MVS Multi-lobar pneumonia FANI -ABG, CXR now -CBC, BMP in am - Wean supplemental oxygen for target O2 sats > 92% -Increased PEEP to 20 monitor airway pressures closely, if no improvement will prone - Daily SAT's and SBT assessment - current ventilator demands precludes this - VAP bundle addressed - Lung protective strategies -Fluid conservative measures as tolerated by hemodynamics and renal function -Renal on consult - Bronchodilators with pulmonary hygiene per RT - Accuchecks with glycemic control per SSI (While critically ill target blood glucose of 140-180 mg/dL; avoid hypoglycemia) - Avoid benzodiazepines, reduce the possibility of delirium - prn analgesia per CPOT score - Maintenance of sleep-wake cycle, avoid delirium -Avoid nephrotoxins, closely monitor renal function -Alexis catheter for accurate intake and output monitoring in this critically ill patient with COVID-ARDS, severe hypoxemia -Empiric antibiotics( Ceftriaxone and Azithromycin for CAP ) -RD consult for enteral nutritional support especially with proning -Aspiration precautions, HOB >40 -Sedation Fentanyl, Propofol and midazolam titrate to RASS -1 to -2 - Stress ulcer & VTE prophylaxis (Lovenox- therapeutic dose, Famotidine) - Mobility protocol, off loading and skin assessment for pressure ulcer prevention - Monitor hemodynamics closely -Supportive transfusions as indicated to keep HgB >7g/dL -intrarterial line for frequent ABG COVID SPECIFIC INTERVENTIONS -Needs aggressive management per ID/Pulmonary drive protocols -Airborne, contact isolation for COVID per facility protocols -Patient had renal impairment and is not a candidate for Remdesivir -Consent and administration of convalescent plasma per facility protocol -Continue with steroids, solumedrol IV 40mg q8 -Continue with therapeutic anticoagulation, on Eliquis -Trend inflammatory markers per facility protocol -Continue all supportive care -Contact tracing and testing of her contacts Discussed with the ICU team-RTRN Life threatening condition- Severe sepsis with COVID 19 ARDS acute hypoxemic respiratory failure on MVS Mortality/Morbidity- High Complexity of medical decision making- High CONDITION: CRITICAL PROGNOSIS: GUARDED-GRAVE CODE STATUS: FULL CODE The high probability of a clinically significant, sudden or life-threatening deterioration of the [respiratory , cardiovascular, renal, neurology] system(s) required my full and direct attention, intervention and personal management. The aggregate critical care time was [45] minutes without overlap. Time includes spent on; [x] Data Review and interpretation [x] Patient assessment and monitoring of vital signs [x] Documentation [x] Medication orders and management Subjective Date of service: 10/06/19 Principal diagnosis: Ac. hypoxemic resp failure; ARDS; COVID-19 virus infxn; PNA; Severe sepsis Interval history: Patient is seen today for: Ac. hypoxemic resp failure; ARDS; COVID-19 virus infection; Bilateral pneumonia; Severe sepsis; FANI Seen and examined at bedside; 24hour events reviewed; nursing and respiratory care staff consulted; no adverse overnight events reported to me; resting in bed; RN started weaning sedation this morning with resulting desaturations requiring increasing FIO2, now at 100% with a PEEP of 18 and O2 sats of 80 % No fevers STAT ABG done RICHAR 2 of 48 Objective Vital Signs - 12hr 10/06/19 10/06/19 10/06/19 01:16 01:30 01:46 Temperature Pulse Rate 73 76 74 Pulse Rate [ From Monitor] Respiratory 30 H 30 H 30 H Rate Blood Pressure 105/57 103/54 102/58 O2 Sat by Pulse 98 99 99 Oximetry 10/06/19 10/06/19 10/06/19 02:00 02:16 02:30 Temperature Pulse Rate 73 72 73 Pulse Rate [ From Monitor] Respiratory 30 H 30 H 30 H Rate Blood Pressure 101/58 101/57 100/58 O2 Sat by Pulse 98 99 98 Oximetry 10/06/19 10/06/19 10/06/19 02:46 03:00 03:16 Temperature Pulse Rate 74 76 74 Pulse Rate [ From Monitor] Respiratory 30 H 30 H 30 H Rate Blood Pressure 108/61 99/58 107/59 O2 Sat by Pulse 99 100 99 Oximetry 10/06/19 10/06/19 10/06/19 03:30 03:46 04:00 Temperature 97.7 F Pulse Rate 72 71 68 Pulse Rate [ 80 From Monitor] Respiratory 30 H 30 H 30 H Rate Blood Pressure 106/62 100/59 118/62 O2 Sat by Pulse 99 100 98 Oximetry 10/06/19 10/06/19 10/06/19 04:16 04:30 04:46 Temperature Pulse Rate 71 72 73 Pulse Rate [ From Monitor] Respiratory 30 H 30 H 30 H Rate Blood Pressure 109/60 110/61 118/64 O2 Sat by Pulse 96 100 100 Oximetry 10/06/19 10/06/19 10/06/19 04:48 05:00 05:16 Temperature Pulse Rate 72 71 70 Pulse Rate [ From Monitor] Respiratory 30 H 30 H Rate Blood Pressure 132/68 111/64 109/65 O2 Sat by Pulse 100 100 100 Oximetry 10/06/19 10/06/19 10/06/19 05:30 05:46 06:00 Temperature Pulse Rate 70 72 74 Pulse Rate [ From Monitor] Respiratory 5 L 30 H 30 H Rate Blood Pressure 113/60 118/65 130/74 O2 Sat by Pulse 96 97 98 Oximetry 10/06/19 10/06/19 10/06/19 06:16 06:30 06:46 Temperature Pulse Rate 80 77 78 Pulse Rate [ From Monitor] Respiratory 30 H 30 H 30 H Rate Blood Pressure 118/72 118/65 113/65 O2 Sat by Pulse 93 95 93 Oximetry 10/06/19 10/06/19 10/06/19 07:00 07:16 07:30 Temperature Pulse Rate 78 72 80 Pulse Rate [ From Monitor] Respiratory 30 H 31 H 30 H Rate Blood Pressure 114/66 122/68 119/63 O2 Sat by Pulse 91 92 91 Oximetry 10/06/19 10/06/19 10/06/19 07:46 08:00 08:16 Temperature 98.1 F Pulse Rate 74 82 78 Pulse Rate [ 90 From Monitor] Respiratory 30 H 22 30 H Rate Blood Pressure 117/67 118/61 120/67 O2 Sat by Pulse 92 92 92 Oximetry 10/06/19 10/06/19 10/06/19 08:30 08:46 09:00 Temperature Pulse Rate 83 81 80 Pulse Rate [ From Monitor] Respiratory 36 H 30 H 30 H Rate Blood Pressure 119/66 117/67 135/73 O2 Sat by Pulse 86 93 97 Oximetry 10/06/19 10/06/19 10/06/19 09:16 09:30 09:46 Temperature Pulse Rate 87 84 80 Pulse Rate [ From Monitor] Respiratory 32 H 30 H 31 H Rate Blood Pressure 119/66 111/63 105/64 O2 Sat by Pulse 93 95 93 Oximetry 10/06/19 10/06/19 10/06/19 10:00 10:16 10:30 Temperature Pulse Rate 86 84 80 Pulse Rate [ From Monitor] Respiratory 30 H 30 H 30 H Rate Blood Pressure 111/63 103/62 102/57 O2 Sat by Pulse 94 94 95 Oximetry 10/06/19 10/06/19 10/06/19 10:46 11:00 11:16 Temperature Pulse Rate 80 82 91 H Pulse Rate [ From Monitor] Respiratory 30 H 30 H 41 H Rate Blood Pressure 98/58 104/60 104/62 O2 Sat by Pulse 96 91 81 L Oximetry 10/06/19 10/06/19 10/06/19 11:22 11:30 11:46 Temperature Pulse Rate 79 113 H 111 H Pulse Rate [ From Monitor] Respiratory 37 H 43 H Rate Blood Pressure 109/59 100/64 114/67 O2 Sat by Pulse 96 72 L 76 L Oximetry 10/06/19 10/06/19 10/06/19 12:00 12:16 12:30 Temperature Pulse Rate 108 H 111 H 117 H Pulse Rate [ 108 H From Monitor] Respiratory 42 H 39 H 42 H Rate Blood Pressure 110/74 113/51 119/52 O2 Sat by Pulse 84 86 80 L Oximetry Constitutional: appears uncomfortable, other (elderly looking AAF with mildly increased resp effort at rest on mvs) Eyes: non-icteric ENT: oropharynx moist, other (ETT 24 cm GLYNN) Neck: supple, no lymphadenopathy, no JVD Effort: very labored Ascultation: Bilateral: diminished breath sounds, rales Percussion: Bilateral: not dull Cardiovascular: regular rate and rhythm, other (S1,S2, no murmurs) Gastrointestinal: normoactive bowel sounds, soft, non-tender, non-distended Integumentary: normal Extremities: no cyanosis, no edema, pulses normal, no ischemia or petechiae Neurologic: pupils equal and round, other (unable to assess, sedated) Psychiatric: other (unable to assess, sedated) CBC and BMP: 10/06/19 06:07 10/06/19 06:07 ABG, PT/INR, D-dimer: ABG ABG pH 7.295 pH Units (7.350-7.450) L 10/06/19 Unknown ABG pCO2 51.4 mm Hg 10/06/19 Unknown ABG pO2 48.4 mm Hg (80.0-90.0) L 10/06/19 Unknown ABG O2 Saturation 81.0 % (95.0-99.0) L 10/06/19 Unknown PT/INR, D-dimer PT 14.5 Sec. (12.2-14.9) 10/01/19 05:36 INR 1.15 (0.87-1.13) H 10/01/19 05:36 D-Dimer > 73212 ng/mlDDU (0-234) H 10/05/19 12:10 Abnormal lab findings: Abnormal Labs 10/01/19 10/01/19 10/01/19 05:36 05:36 05:36 WBC RDW Plt Count [place] # Seg Neuts % (Manual) Lymphocytes % (Manual) Nucleated RBC % Seg Neutrophils # Seg Neutrophils # Man Lymphocytes # (Manual) Monocytes # (Manual) INR 1.15 H D-Dimer 1648.23 H ABG pH ABG pO2 ABG HCO3 ABG O2 Saturation ABG Base Excess ABG Hemoglobin Oxyhemoglobin Sodium Potassium Chloride Carbon Dioxide BUN Creatinine Glucose 424 H POC Glucose Lactic Acid Calcium Phosphorus Magnesium Ferritin 1745.0 H AST ALT Lactate Dehydrogenase 822 H C-Reactive Protein 15.10 H NT-Pro-B Natriuret Pep Albumin Triglycerides Urine WBC (Auto) Urine Creatinine Urine Total Protein Coronavirus (PCR) 10/01/19 10/01/19 10/01/19 05:36 05:36 06:31 WBC 12.8 H RDW Plt Count [place] # Seg Neuts % (Manual) 93.0 H Lymphocytes % (Manual) 2.0 L Nucleated RBC % Seg Neutrophils # Seg Neutrophils # Man 11.9 H Lymphocytes # (Manual) 0.3 L Monocytes # (Manual) INR D-Dimer ABG pH ABG pO2 ABG HCO3 ABG O2 Saturation ABG Base Excess ABG Hemoglobin Oxyhemoglobin Sodium Potassium Chloride Carbon Dioxide 13 L BUN 34 H Creatinine 1.4 H Glucose 413 H POC Glucose Lactic Acid 7.20 H* Calcium Phosphorus Magnesium Ferritin AST 54 H ALT 64 H Lactate Dehydrogenase C-Reactive Protein NT-Pro-B Natriuret Pep Albumin 3.4 L Triglycerides Urine WBC (Auto) Urine Creatinine Urine Total Protein Coronavirus (PCR) 10/01/19 10/01/19 10/01/19 09:10 10:05 12:24 WBC RDW Plt Count [place] # Seg Neuts % (Manual) Lymphocytes % (Manual) Nucleated RBC % Seg Neutrophils # Seg Neutrophils # Man Lymphocytes # (Manual) Monocytes # (Manual) INR D-Dimer 1957.06 H ABG pH ABG pO2 ABG HCO3 ABG O2 Saturation ABG Base Excess ABG Hemoglobin Oxyhemoglobin Sodium Potassium Chloride Carbon Dioxide BUN Creatinine Glucose POC Glucose 354 H Lactic Acid Calcium Phosphorus Magnesium Ferritin AST ALT Lactate Dehydrogenase C-Reactive Protein NT-Pro-B Natriuret Pep Albumin Triglycerides Urine WBC (Auto) Urine Creatinine 179.4 H Urine Total Protein Coronavirus (PCR) 10/01/19 10/01/19 10/01/19 12:24 12:24 12:45 WBC RDW Plt Count [place] # Seg Neuts % (Manual) Lymphocytes % (Manual) Nucleated RBC % Seg Neutrophils # Seg Neutrophils # Man Lymphocytes # (Manual) Monocytes # (Manual) INR D-Dimer ABG pH ABG pO2 ABG HCO3 ABG O2 Saturation ABG Base Excess ABG Hemoglobin Oxyhemoglobin Sodium Potassium Chloride Carbon Dioxide BUN Creatinine Glucose 346 H POC Glucose Lactic Acid Calcium Phosphorus 4.70 H Magnesium 2.50 H Ferritin 1646.0 H AST ALT Lactate Dehydrogenase 766 H C-Reactive Protein 18.60 H NT-Pro-B Natriuret Pep 1525 H Albumin Triglycerides Urine WBC (Auto) Urine Creatinine Urine Total Protein Coronavirus (PCR) 10/01/19 10/01/19 10/01/19 14:30 17:20 18:15 WBC RDW Plt Count [place] # Seg Neuts % (Manual) Lymphocytes % (Manual) Nucleated RBC % Seg Neutrophils # Seg Neutrophils # Man Lymphocytes # (Manual) Monocytes # (Manual) INR D-Dimer ABG pH 7.263 L 7.289 L ABG pO2 60.7 L 52.1 L ABG HCO3 ABG O2 Saturation 88.2 L 83.2 L ABG Base Excess -6.4 L -4.8 L ABG Hemoglobin 10.5 L Oxyhemoglobin 86.6 L 81.4 L Sodium Potassium Chloride Carbon Dioxide BUN Creatinine Glucose POC Glucose 299 H Lactic Acid Calcium Phosphorus Magnesium Ferritin AST ALT Lactate Dehydrogenase C-Reactive Protein NT-Pro-B Natriuret Pep Albumin Triglycerides Urine WBC (Auto) Urine Creatinine Urine Total Protein Coronavirus (PCR) 10/01/19 10/01/19 10/01/19 21:08 21:35 Unknown WBC RDW Plt Count [place] # Seg Neuts % (Manual) Lymphocytes % (Manual) Nucleated RBC % Seg Neutrophils # Seg Neutrophils # Man Lymphocytes # (Manual) Monocytes # (Manual) INR D-Dimer ABG pH 7.327 L ABG pO2 75.1 L ABG HCO3 ABG O2 Saturation 94.5 L ABG Base Excess -4.4 L ABG Hemoglobin Oxyhemoglobin 92.8 L Sodium Potassium Chloride Carbon Dioxide BUN Creatinine Glucose POC Glucose 266 H Lactic Acid Calcium Phosphorus Magnesium Ferritin AST ALT Lactate Dehydrogenase C-Reactive Protein NT-Pro-B Natriuret Pep Albumin Triglycerides Urine WBC (Auto) Urine Creatinine Urine Total Protein Coronavirus (PCR) Positive A 10/02/19 10/02/19 10/02/19 01:23 03:55 05:18 WBC 17.8 H RDW Plt Count [place] # Seg Neuts % (Manual) 93.0 H Lymphocytes % (Manual) 5.0 L Nucleated RBC % 1.0 H Seg Neutrophils # Seg Neutrophils # Man 16.6 H Lymphocytes # (Manual) 0.9 L Monocytes # (Manual) INR D-Dimer ABG pH 7.308 L ABG pO2 129.3 H ABG HCO3 ABG O2 Saturation ABG Base Excess -4.9 L ABG Hemoglobin 16.1 H Oxyhemoglobin Sodium Potassium Chloride Carbon Dioxide BUN Creatinine Glucose POC Glucose 291 H Lactic Acid Calcium Phosphorus Magnesium Ferritin AST ALT Lactate Dehydrogenase C-Reactive Protein NT-Pro-B Natriuret Pep Albumin Triglycerides Urine WBC (Auto) Urine Creatinine Urine Total Protein Coronavirus (PCR) 10/02/19 10/02/19 10/02/19 05:18 07:15 15:28 WBC RDW Plt Count [place] # Seg Neuts % (Manual) Lymphocytes % (Manual) Nucleated RBC % Seg Neutrophils # Seg Neutrophils # Man Lymphocytes # (Manual) Monocytes # (Manual) INR D-Dimer ABG pH ABG pO2 ABG HCO3 ABG O2 Saturation ABG Base Excess ABG Hemoglobin Oxyhemoglobin Sodium Potassium Chloride 111.1 H Carbon Dioxide 19 L BUN 44 H Creatinine 2.4 H D Glucose 227 H POC Glucose 196 H Lactic Acid Calcium Phosphorus Magnesium Ferritin AST ALT Lactate Dehydrogenase C-Reactive Protein NT-Pro-B Natriuret Pep Albumin Triglycerides Urine WBC (Auto) Urine Creatinine 336.4 H Urine Total Protein Coronavirus (PCR) 10/02/19 10/03/19 10/03/19 17:57 00:32 04:02 WBC 17.2 H RDW Plt Count [place] # Seg Neuts % (Manual) 95.0 H Lymphocytes % (Manual) 3.0 L Nucleated RBC % 2.0 H Seg Neutrophils # Seg Neutrophils # Man 16.3 H Lymphocytes # (Manual) 0.5 L Monocytes # (Manual) INR D-Dimer ABG pH ABG pO2 ABG HCO3 ABG O2 Saturation ABG Base Excess ABG Hemoglobin Oxyhemoglobin Sodium Potassium Chloride Carbon Dioxide BUN Creatinine Glucose POC Glucose 137 H 184 H Lactic Acid Calcium Phosphorus Magnesium Ferritin AST ALT Lactate Dehydrogenase C-Reactive Protein NT-Pro-B Natriuret Pep Albumin Triglycerides Urine WBC (Auto) Urine Creatinine Urine Total Protein Coronavirus (PCR) 10/03/19 10/03/19 10/03/19 04:02 04:26 05:20 WBC RDW Plt Count [place] # Seg Neuts % (Manual) Lymphocytes % (Manual) Nucleated RBC % Seg Neutrophils # Seg Neutrophils # Man Lymphocytes # (Manual) Monocytes # (Manual) INR D-Dimer ABG pH 7.336 L ABG pO2 70.1 L ABG HCO3 ABG O2 Saturation 94.0 L ABG Base Excess -3.8 L ABG Hemoglobin Oxyhemoglobin 92.4 L Sodium Potassium Chloride 108.9 H Carbon Dioxide 19 L BUN 64 H Creatinine 2.1 H Glucose 212 H POC Glucose 197 H Lactic Acid Calcium Phosphorus Magnesium Ferritin AST ALT Lactate Dehydrogenase C-Reactive Protein NT-Pro-B Natriuret Pep Albumin Triglycerides Urine WBC (Auto) Urine Creatinine Urine Total Protein Coronavirus (PCR) 10/03/19 10/03/19 10/03/19 11:22 11:58 18:44 WBC RDW Plt Count [place] # Seg Neuts % (Manual) Lymphocytes % (Manual) Nucleated RBC % Seg Neutrophils # Seg Neutrophils # Man Lymphocytes # (Manual) Monocytes # (Manual) INR D-Dimer ABG pH ABG pO2 ABG HCO3 ABG O2 Saturation ABG Base Excess ABG Hemoglobin Oxyhemoglobin Sodium Potassium Chloride Carbon Dioxide BUN Creatinine Glucose POC Glucose 248 H 245 H 324 H Lactic Acid Calcium Phosphorus Magnesium Ferritin AST ALT Lactate Dehydrogenase C-Reactive Protein NT-Pro-B Natriuret Pep Albumin Triglycerides Urine WBC (Auto) Urine Creatinine Urine Total Protein Coronavirus (PCR) 10/03/19 10/04/19 10/04/19 23:51 03:50 05:35 WBC RDW Plt Count [place] # Seg Neuts % (Manual) Lymphocytes % (Manual) Nucleated RBC % Seg Neutrophils # Seg Neutrophils # Man Lymphocytes # (Manual) Monocytes # (Manual) INR D-Dimer ABG pH ABG pO2 129.4 H ABG HCO3 ABG O2 Saturation ABG Base Excess -3.5 L ABG Hemoglobin Oxyhemoglobin Sodium Potassium Chloride Carbon Dioxide BUN Creatinine Glucose POC Glucose 182 H 177 H Lactic Acid Calcium Phosphorus Magnesium Ferritin AST ALT Lactate Dehydrogenase C-Reactive Protein NT-Pro-B Natriuret Pep Albumin Triglycerides Urine WBC (Auto) Urine Creatinine Urine Total Protein Coronavirus (PCR) 10/04/19 10/04/19 10/04/19 11:39 16:30 16:30 WBC 21.2 H RDW 16.0 H Plt Count 93 L [place] # Seg Neuts % (Manual) 92.0 H Lymphocytes % (Manual) 3.0 L Nucleated RBC % 4.0 H Seg Neutrophils # Seg Neutrophils # Man 19.5 H Lymphocytes # (Manual) 0.6 L Monocytes # (Manual) 1.1 H INR D-Dimer ABG pH ABG pO2 ABG HCO3 ABG O2 Saturation ABG Base Excess ABG Hemoglobin Oxyhemoglobin Sodium Potassium Chloride 109.0 H Carbon Dioxide 21 L BUN 94 H Creatinine 2.3 H Glucose 345 H POC Glucose 265 H Lactic Acid Calcium Phosphorus Magnesium Ferritin AST ALT Lactate Dehydrogenase C-Reactive Protein NT-Pro-B Natriuret Pep Albumin Triglycerides Urine WBC (Auto) Urine Creatinine Urine Total Protein Coronavirus (PCR) 10/04/19 10/04/19 10/04/19 18:04 18:50 23:19 WBC RDW Plt Count [place] # Seg Neuts % (Manual) Lymphocytes % (Manual) Nucleated RBC % Seg Neutrophils # Seg Neutrophils # Man Lymphocytes # (Manual) Monocytes # (Manual) INR D-Dimer ABG pH 7.322 L ABG pO2 183.3 H ABG HCO3 18.1 L ABG O2 Saturation 99.1 H ABG Base Excess -7.2 L ABG Hemoglobin 11.8 L Oxyhemoglobin Sodium Potassium Chloride Carbon Dioxide BUN Creatinine Glucose POC Glucose 333 H 366 H Lactic Acid Calcium Phosphorus Magnesium Ferritin AST ALT Lactate Dehydrogenase C-Reactive Protein NT-Pro-B Natriuret Pep Albumin Triglycerides Urine WBC (Auto) Urine Creatinine Urine Total Protein Coronavirus (PCR) 10/05/19 10/05/19 10/05/19 04:00 05:05 06:00 WBC RDW Plt Count [place] # Seg Neuts % (Manual) Lymphocytes % (Manual) Nucleated RBC % Seg Neutrophils # Seg Neutrophils # Man Lymphocytes # (Manual) Monocytes # (Manual) INR D-Dimer ABG pH 7.223 L ABG pO2 93.7 H ABG HCO3 19.4 L ABG O2 Saturation ABG Base Excess -8.3 L ABG Hemoglobin Oxyhemoglobin Sodium Potassium Chloride Carbon Dioxide BUN Creatinine Glucose POC Glucose 362 H Lactic Acid Calcium Phosphorus Magnesium Ferritin AST ALT Lactate Dehydrogenase C-Reactive Protein NT-Pro-B Natriuret Pep Albumin Triglycerides 518 H Urine WBC (Auto) Urine Creatinine Urine Total Protein Coronavirus (PCR) 10/05/19 10/05/19 10/05/19 06:00 06:00 10:16 WBC 18.6 H RDW 16.6 H Plt Count 78 L [place] # Seg Neuts % (Manual) 95.0 H Lymphocytes % (Manual) 0 L Nucleated RBC % 4.0 H Seg Neutrophils # Seg Neutrophils # Man 17.7 H Lymphocytes # (Manual) 0.0 L Monocytes # (Manual) INR D-Dimer ABG pH ABG pO2 ABG HCO3 ABG O2 Saturation ABG Base Excess ABG Hemoglobin Oxyhemoglobin Sodium Potassium 5.2 H Chloride 110.9 H Carbon Dioxide 17 L BUN 101 H Creatinine 3.2 H Glucose 368 H POC Glucose Lactic Acid Calcium Phosphorus Magnesium Ferritin AST ALT Lactate Dehydrogenase C-Reactive Protein NT-Pro-B Natriuret Pep Albumin Triglycerides Urine WBC (Auto) Urine Creatinine 179.4 H Urine Total Protein 66 H Coronavirus (PCR) 10/05/19 10/05/19 10/05/19 10:17 11:43 12:10 WBC RDW Plt Count [place] # Seg Neuts % (Manual) Lymphocytes % (Manual) Nucleated RBC % Seg Neutrophils # Seg Neutrophils # Man Lymphocytes # (Manual) Monocytes # (Manual) INR D-Dimer > 06491 H ABG pH ABG pO2 ABG HCO3 ABG O2 Saturation ABG Base Excess ABG Hemoglobin Oxyhemoglobin Sodium Potassium Chloride Carbon Dioxide BUN Creatinine Glucose POC Glucose 328 H Lactic Acid Calcium Phosphorus Magnesium Ferritin AST ALT Lactate Dehydrogenase C-Reactive Protein NT-Pro-B Natriuret Pep Albumin Triglycerides Urine WBC (Auto) 25.0 H Urine Creatinine Urine Total Protein Coronavirus (PCR) 10/05/19 10/05/19 10/06/19 17:35 17:57 00:46 WBC RDW Plt Count [place] # Seg Neuts % (Manual) Lymphocytes % (Manual) Nucleated RBC % Seg Neutrophils # Seg Neutrophils # Man Lymphocytes # (Manual) Monocytes # (Manual) INR D-Dimer ABG pH ABG pO2 ABG HCO3 ABG O2 Saturation ABG Base Excess -3.8 L ABG Hemoglobin Oxyhemoglobin Sodium Potassium Chloride Carbon Dioxide BUN Creatinine Glucose POC Glucose 292 H 295 H Lactic Acid Calcium Phosphorus Magnesium Ferritin AST ALT Lactate Dehydrogenase C-Reactive Protein NT-Pro-B Natriuret Pep Albumin Triglycerides Urine WBC (Auto) Urine Creatinine Urine Total Protein Coronavirus (PCR) 10/06/19 10/06/19 10/06/19 03:32 06:07 06:07 WBC 20.5 H RDW 15.6 H Plt Count 79 L [place] # 0.9 H Seg Neuts % (Manual) 91.0 H Lymphocytes % (Manual) 0 L Nucleated RBC % 2.0 H Seg Neutrophils # 18.4 H Seg Neutrophils # Man 18.7 H Lymphocytes # (Manual) 0.0 L Monocytes # (Manual) INR D-Dimer ABG pH 7.339 L ABG pO2 ABG HCO3 ABG O2 Saturation ABG Base Excess -2.4 L ABG Hemoglobin 11.5 L Oxyhemoglobin 94.5 L Sodium 147 H Potassium Chloride 108.6 H Carbon Dioxide BUN 102 H Creatinine 3.2 H Glucose 305 H POC Glucose Lactic Acid Calcium 7.8 L Phosphorus Magnesium Ferritin AST ALT Lactate Dehydrogenase C-Reactive Protein NT-Pro-B Natriuret Pep Albumin Triglycerides Urine WBC (Auto) Urine Creatinine Urine Total Protein Coronavirus (PCR) 10/06/19 10/06/19 10/06/19 06:07 06:33 10:25 WBC RDW Plt Count [place] # Seg Neuts % (Manual) Lymphocytes % (Manual) Nucleated RBC % Seg Neutrophils # Seg Neutrophils # Man Lymphocytes # (Manual) Monocytes # (Manual) INR D-Dimer ABG pH ABG pO2 ABG HCO3 ABG O2 Saturation ABG Base Excess ABG Hemoglobin Oxyhemoglobin Sodium Potassium Chloride Carbon Dioxide BUN Creatinine Glucose POC Glucose 310 H 304 H Lactic Acid Calcium Phosphorus Magnesium Ferritin AST ALT Lactate Dehydrogenase C-Reactive Protein NT-Pro-B Natriuret Pep Albumin Triglycerides 467 H Urine WBC (Auto) Urine Creatinine Urine Total Protein Coronavirus (PCR) 10/06/19 Unknown WBC RDW Plt Count [place] # Seg Neuts % (Manual) Lymphocytes % (Manual) Nucleated RBC % Seg Neutrophils # Seg Neutrophils # Man Lymphocytes # (Manual) Monocytes # (Manual) INR D-Dimer ABG pH 7.295 L ABG pO2 48.4 L ABG HCO3 ABG O2 Saturation 81.0 L ABG Base Excess -2.7 L ABG Hemoglobin Oxyhemoglobin 79.2 L Sodium Potassium Chloride Carbon Dioxide BUN Creatinine Glucose POC Glucose Lactic Acid Calcium Phosphorus Magnesium Ferritin AST ALT Lactate Dehydrogenase C-Reactive Protein NT-Pro-B Natriuret Pep Albumin Triglycerides Urine WBC (Auto) Urine Creatinine Urine Total Protein Coronavirus (PCR) Chest x-ray: image reviewed Allied health notes reviewed: RT
--- NOTE | 2019-10-06 14:02 | Progress Note ---
Assessment and Plan Cultures: 10/01/2019 coronavirus PCR: Positive 10/01/2019 blood culture: CoNS in 1/4 bottles 10/01/2019 tracheal aspirate culture: No growth A/P: 64-year-old female with diabetes, hypertension admitted with: #Bilateral pneumonia: Secondary to COVID-19. Inflammatory markers are significantly elevated. s/p Actemra on 10/01/2019. Continue steroids. Creatinine elevated, not a candidate for Remdesivir #Acute hypoxic respiratory failure: On mechanical ventilation. #Mild transaminitis: Likely secondary to COVID-19 #CoNS bacteremia: CoNS in 1/4 bottles, likely a contaminant. #FANI: creatinine high. Recs: Continue steroids d-dimer very high, continue with full anticoagulation Creatinine elevated, hence, not a candidate for Remdesivir completed empiric abx trend ferritin, d-dimer, CRP every 2 days for risk stratification and to assess disease progression Consider enrollment for convalescent plasma, notified Dr. Vern Booker MD, FACP [facility] ([facility]) C: [phone] O: [phone] F: [phone] Subjective Date of service: 10/06/19 Principal diagnosis: Ac. hypoxemic resp failure; ARDS; COVID-19 virus infxn; PNA; Severe sepsis Interval history: No fever. Remains intubated, sedated, on the vent. Objective - Exam Narrative Exam: Physical Exam (reviewed in chart due to PPE conservation) Constitutional: intubated, sedated, on the vent Head, Ears, Nose: normocephalic, atraumatic Eyes: limited due to PPE conservation strategy Neck: intubated Oral: intubated Cardiovascular: limited due to PPE conservation strategy Respiratory: limited due to PPE conservation strategy GI: limited due to PPE conservation strategy Musculoskeletal: limited due to PPE conservation strategy Skin: limited due to PPE conservation strategy Hem/Lymphatic: limited due to PPE conservation strategy Psych: no agitation Neurological: sedated, intubated, on the vent, exam limited - Constitutional Vitals: Vital Signs Temp Pulse Resp BP Pulse Ox 98.1 F 117 H 42 H 119/52 80 L 10/06/19 08:00 10/06/19 12:30 10/06/19 12:30 10/06/19 12:30 10/06/19 12:30 Temperature -Last 24 Hours Temperature 98.1 F Temperature 97.7 F Temperature 98.5 F Temperature 98.1 F Temperature 97.5 F - Labs CBC & Chem 7: 10/06/19 06:07 10/06/19 06:07 Labs: Abnormal lab results 10/01/19 10/05/19 10/05/19 Range/Units 09:10 10:16 11:43 WBC (4.5-11.0) K/mm3 RDW (13.2-15.2) % Plt Count (140-440) K/mm3 [place] # (0.0-0.8) K/mm3 Seg Neuts % (Manual) (40.0-70.0) % Lymphocytes % (Manual) (13.4-35.0) % Nucleated RBC % (0.0-0.9) % Seg Neutrophils # (1.8-7.7) K/mm3 Seg Neutrophils # Man (1.8-7.7) K/mm3 Lymphocytes # (Manual) (1.2-5.4) K/mm3 ABG pH (7.350-7.450) pH Units ABG pO2 (80.0-90.0) mm Hg ABG O2 Saturation (95.0-99.0) % ABG Base Excess (-2.0-3.0) mmol/L ABG Hemoglobin (12.0-16.0) gm/dl Oxyhemoglobin (95.0-99.0) % Sodium (137-145) mmol/L Chloride (98-107) mmol/L BUN (7-17) mg/dL Creatinine (0.7-1.2) mg/dL Glucose (65-100) mg/dL POC Glucose 328 H (70-105) Calcium (8.4-10.2) mg/dL Triglycerides (2-149) mg/dL Urine Creatinine 179.4 H 179.4 H (0.1-20.0) mg/dL Urine Total Protein 66 H (5-11.8) mg/dL 10/05/19 10/05/19 10/06/19 Range/Units 17:35 17:57 00:46 WBC (4.5-11.0) K/mm3 RDW (13.2-15.2) % Plt Count (140-440) K/mm3 [place] # (0.0-0.8) K/mm3 Seg Neuts % (Manual) (40.0-70.0) % Lymphocytes % (Manual) (13.4-35.0) % Nucleated RBC % (0.0-0.9) % Seg Neutrophils # (1.8-7.7) K/mm3 Seg Neutrophils # Man (1.8-7.7) K/mm3 Lymphocytes # (Manual) (1.2-5.4) K/mm3 ABG pH (7.350-7.450) pH Units ABG pO2 (80.0-90.0) mm Hg ABG O2 Saturation (95.0-99.0) % ABG Base Excess -3.8 L (-2.0-3.0) mmol/L ABG Hemoglobin (12.0-16.0) gm/dl Oxyhemoglobin (95.0-99.0) % Sodium (137-145) mmol/L Chloride (98-107) mmol/L BUN (7-17) mg/dL Creatinine (0.7-1.2) mg/dL Glucose (65-100) mg/dL POC Glucose 292 H 295 H (70-105) Calcium (8.4-10.2) mg/dL Triglycerides (2-149) mg/dL Urine Creatinine (0.1-20.0) mg/dL Urine Total Protein (5-11.8) mg/dL 10/06/19 10/06/19 10/06/19 Range/Units 03:32 06:07 06:07 WBC 20.5 H (4.5-11.0) K/mm3 RDW 15.6 H (13.2-15.2) % Plt Count 79 L (140-440) K/mm3 [place] # 0.9 H (0.0-0.8) K/mm3 Seg Neuts % (Manual) 91.0 H (40.0-70.0) % Lymphocytes % (Manual) 0 L (13.4-35.0) % Nucleated RBC % 2.0 H (0.0-0.9) % Seg Neutrophils # 18.4 H (1.8-7.7) K/mm3 Seg Neutrophils # Man 18.7 H (1.8-7.7) K/mm3 Lymphocytes # (Manual) 0.0 L (1.2-5.4) K/mm3 ABG pH 7.339 L (7.350-7.450) pH Units ABG pO2 (80.0-90.0) mm Hg ABG O2 Saturation (95.0-99.0) % ABG Base Excess -2.4 L (-2.0-3.0) mmol/L ABG Hemoglobin 11.5 L (12.0-16.0) gm/dl Oxyhemoglobin 94.5 L (95.0-99.0) % Sodium 147 H (137-145) mmol/L Chloride 108.6 H (98-107) mmol/L BUN 102 H (7-17) mg/dL Creatinine 3.2 H (0.7-1.2) mg/dL Glucose 305 H (65-100) mg/dL POC Glucose (70-105) Calcium 7.8 L (8.4-10.2) mg/dL Triglycerides (2-149) mg/dL Urine Creatinine (0.1-20.0) mg/dL Urine Total Protein (5-11.8) mg/dL 10/06/19 10/06/19 10/06/19 Range/Units 06:07 06:33 10:25 WBC (4.5-11.0) K/mm3 RDW (13.2-15.2) % Plt Count (140-440) K/mm3 [place] # (0.0-0.8) K/mm3 Seg Neuts % (Manual) (40.0-70.0) % Lymphocytes % (Manual) (13.4-35.0) % Nucleated RBC % (0.0-0.9) % Seg Neutrophils # (1.8-7.7) K/mm3 Seg Neutrophils # Man (1.8-7.7) K/mm3 Lymphocytes # (Manual) (1.2-5.4) K/mm3 ABG pH (7.350-7.450) pH Units ABG pO2 (80.0-90.0) mm Hg ABG O2 Saturation (95.0-99.0) % ABG Base Excess (-2.0-3.0) mmol/L ABG Hemoglobin (12.0-16.0) gm/dl Oxyhemoglobin (95.0-99.0) % Sodium (137-145) mmol/L Chloride (98-107) mmol/L BUN (7-17) mg/dL Creatinine (0.7-1.2) mg/dL Glucose (65-100) mg/dL POC Glucose 310 H 304 H (70-105) Calcium (8.4-10.2) mg/dL Triglycerides 467 H (2-149) mg/dL Urine Creatinine (0.1-20.0) mg/dL Urine Total Protein (5-11.8) mg/dL 10/06/19 Range/Units Unknown WBC (4.5-11.0) K/mm3 RDW (13.2-15.2) % Plt Count (140-440) K/mm3 [place] # (0.0-0.8) K/mm3 Seg Neuts % (Manual) (40.0-70.0) % Lymphocytes % (Manual) (13.4-35.0) % Nucleated RBC % (0.0-0.9) % Seg Neutrophils # (1.8-7.7) K/mm3 Seg Neutrophils # Man (1.8-7.7) K/mm3 Lymphocytes # (Manual) (1.2-5.4) K/mm3 ABG pH 7.295 L (7.350-7.450) pH Units ABG pO2 48.4 L (80.0-90.0) mm Hg ABG O2 Saturation 81.0 L (95.0-99.0) % ABG Base Excess -2.7 L (-2.0-3.0) mmol/L ABG Hemoglobin (12.0-16.0) gm/dl Oxyhemoglobin 79.2 L (95.0-99.0) % Sodium (137-145) mmol/L Chloride (98-107) mmol/L BUN (7-17) mg/dL Creatinine (0.7-1.2) mg/dL Glucose (65-100) mg/dL POC Glucose (70-105) Calcium (8.4-10.2) mg/dL Triglycerides (2-149) mg/dL Urine Creatinine (0.1-20.0) mg/dL Urine Total Protein (5-11.8) mg/dL
[2019-10-06] MEDS ORDERED: MIDAZOLAM 5 MG/5 ML INJ MDV IV ONE (14:36)
--- NOTE | 2019-10-06 14:52 | Event Note ---
Date: 10/06/19 Patient placed in prone position on PEEP 20 She recovered briefly but is desaturating again. Her O2 sats is persistently below 80. Our facility does not have the capability for paralytics and monitoring. Discussed with primary Attending, will need evaluation fro ECMO at this time Will need evaluation for ECMO with persistent hypoxia Stat ABG ordered
[2019-10-06] MEDS ORDERED: MIDAZOLAM 5 MG/5 ML INJ MDV IV NR (15:00)
--- NOTE | 2019-10-06 15:53 | XRay Report ---
CHEST 1 VIEW INDICATION: Acute hypoxemia. COMPARISON: 10/06/2019. FINDINGS: Support devices: Endotracheal tube, NG tube and left-sided PICC line in satisfactory position. Heart: Within normal limits. Lungs/Pleura: Significant worsening of bilateral infiltrates. Additional findings: None. IMPRESSION: Significant worsening of bilateral infiltrates. Signer Name: Mono Mendoza MD Signed: 10/06/2019 3:49 PM Workstation Name: [id number]
--- NOTE | 2019-10-06 16:02 | Progress Note ---
Assessment and Plan - Patient Problems (1) Acute kidney failure with tubular necrosis Current Visit: Yes Status: Acute Plan to address problem: Kidney indices are worsening and patient is not improving even with prone ventilation. She will benefit from dialysis but given hemodynamic instability, will need continuous renal replacement therapy. This is not available at this institution and patient will need to be transferred to a higher level of care. (2) Hypernatremia Current Visit: Yes Status: Acute Plan to address problem: Secondary to replacement of hypotonic fluid losses with isotonic saline. (3) Acute respiratory failure with hypoxia Current Visit: Yes Status: Acute Plan to address problem: Continue management by professor of psychiatry (4) Metabolic acidosis Current Visit: Yes Status: Acute Plan to address problem: Uremic acidosis. (5) Pneumonia due to severe acute respiratory syndrome coronavirus 2 (SARS-CoV-2) Current Visit: Yes Status: Acute Plan to address problem: Continue management by infectious disease and pulmonary/critical care consultants Subjective Date of service: 10/06/19 Principal diagnosis: Ac. hypoxemic resp failure; ARDS; COVID-19 virus infxn; PNA; Severe sepsis Interval history: Patient seen lying in bed in the ICU. Intubated on ventilator. In prone position. Patient on Levophed infusion, dopamine and depression. Objective - Exam Narrative Exam: Morbidly obese middle-aged -[place] female lying in bed in prone position on the ventilator. I did not do physical exam at the bedside due to PPE conservation with the current COVID-19 pandemic, - Vital Signs Vital signs: Vital Signs - 12hr 10/06/19 10/06/19 10/06/19 04:00 04:16 04:30 Temperature 97.7 F Pulse Rate 68 71 72 Pulse Rate [ 80 From Monitor] Respiratory 30 H 30 H 30 H Rate Blood Pressure 118/62 109/60 110/61 O2 Sat by Pulse 98 96 100 Oximetry 10/06/19 10/06/19 10/06/19 04:46 04:48 05:00 Temperature Pulse Rate 73 72 71 Pulse Rate [ From Monitor] Respiratory 30 H 30 H Rate Blood Pressure 118/64 132/68 111/64 O2 Sat by Pulse 100 100 100 Oximetry 10/06/19 10/06/19 10/06/19 05:16 05:30 05:46 Temperature Pulse Rate 70 70 72 Pulse Rate [ From Monitor] Respiratory 30 H 5 L 30 H Rate Blood Pressure 109/65 113/60 118/65 O2 Sat by Pulse 100 96 97 Oximetry 10/06/19 10/06/19 10/06/19 06:00 06:16 06:30 Temperature Pulse Rate 74 80 77 Pulse Rate [ From Monitor] Respiratory 30 H 30 H 30 H Rate Blood Pressure 130/74 118/72 118/65 O2 Sat by Pulse 98 93 95 Oximetry 10/06/19 10/06/19 10/06/19 06:46 07:00 07:16 Temperature Pulse Rate 78 78 72 Pulse Rate [ From Monitor] Respiratory 30 H 30 H 31 H Rate Blood Pressure 113/65 114/66 122/68 O2 Sat by Pulse 93 91 92 Oximetry 10/06/19 10/06/19 10/06/19 07:30 07:46 08:00 Temperature 98.1 F Pulse Rate 80 74 82 Pulse Rate [ 90 From Monitor] Respiratory 30 H 30 H 22 Rate Blood Pressure 119/63 117/67 118/61 O2 Sat by Pulse 91 92 92 Oximetry 10/06/19 10/06/19 10/06/19 08:16 08:30 08:46 Temperature Pulse Rate 78 83 81 Pulse Rate [ From Monitor] Respiratory 30 H 36 H 30 H Rate Blood Pressure 120/67 119/66 117/67 O2 Sat by Pulse 92 86 93 Oximetry 10/06/19 10/06/19 10/06/19 09:00 09:16 09:30 Temperature Pulse Rate 80 87 84 Pulse Rate [ From Monitor] Respiratory 30 H 32 H 30 H Rate Blood Pressure 135/73 119/66 111/63 O2 Sat by Pulse 97 93 95 Oximetry 10/06/19 10/06/19 10/06/19 09:46 10:00 10:16 Temperature Pulse Rate 80 86 84 Pulse Rate [ From Monitor] Respiratory 31 H 30 H 30 H Rate Blood Pressure 105/64 111/63 103/62 O2 Sat by Pulse 93 94 94 Oximetry 10/06/19 10/06/19 10/06/19 10:30 10:46 11:00 Temperature Pulse Rate 80 80 82 Pulse Rate [ From Monitor] Respiratory 30 H 30 H 30 H Rate Blood Pressure 102/57 98/58 104/60 O2 Sat by Pulse 95 96 91 Oximetry 10/06/19 10/06/19 10/06/19 11:16 11:22 11:30 Temperature Pulse Rate 91 H 79 113 H Pulse Rate [ From Monitor] Respiratory 41 H 37 H Rate Blood Pressure 104/62 109/59 100/64 O2 Sat by Pulse 81 L 96 72 L Oximetry 10/06/19 10/06/19 10/06/19 11:46 12:00 12:16 Temperature 98.3 F Pulse Rate 111 H 108 H 111 H Pulse Rate [ 108 H From Monitor] Respiratory 43 H 42 H 39 H Rate Blood Pressure 114/67 110/74 113/51 O2 Sat by Pulse 76 L 84 86 Oximetry 10/06/19 10/06/19 10/06/19 12:30 12:46 13:00 Temperature Pulse Rate 117 H 116 H 117 H Pulse Rate [ From Monitor] Respiratory 42 H 42 H 38 H Rate Blood Pressure 119/52 121/54 115/50 O2 Sat by Pulse 80 L 80 L 80 L Oximetry 10/06/19 10/06/19 10/06/19 13:16 13:30 13:46 Temperature Pulse Rate 118 H 119 H 116 H Pulse Rate [ From Monitor] Respiratory 33 H 28 H 33 H Rate Blood Pressure 101/62 110/51 109/61 O2 Sat by Pulse 73 L 71 L 71 L Oximetry 10/06/19 10/06/19 10/06/19 14:00 14:10 14:16 Temperature Pulse Rate 111 H 105 H 102 H Pulse Rate [ From Monitor] Respiratory 32 H 35 H Rate Blood Pressure 116/62 98/80 116/62 O2 Sat by Pulse 69 L 89 94 Oximetry 10/06/19 10/06/19 10/06/19 14:30 14:46 15:00 Temperature Pulse Rate 101 H 106 H 105 H Pulse Rate [ From Monitor] Respiratory 35 H 33 H 35 H Rate Blood Pressure 116/62 93/60 112/70 O2 Sat by Pulse 77 L 76 L 80 L Oximetry - Lab 10/06/19 06:07 10/06/19 06:07 Most recent lab results ABG pH 7.295 pH Units (7.350-7.450) L 10/06/19 Unknown ABG pCO2 51.4 mm Hg 10/06/19 Unknown ABG pO2 48.4 mm Hg (80.0-90.0) L 10/06/19 Unknown ABG HCO3 24.4 mmol/L (20.0-26.0) 10/06/19 Unknown ABG O2 Saturation 81.0 % (95.0-99.0) L 10/06/19 Unknown Calcium 7.8 mg/dL (8.4-10.2) L 10/06/19 06:07 Phosphorus 4.70 mg/dL (2.5-4.5) H 10/01/19 12:45 Magnesium 2.50 mg/dL (1.7-2.3) H 10/01/19 12:45 Urine Creatinine 179.4 mg/dL (0.1-20.0) H 10/05/19 10:16 Urine Sodium 10 mmol/L 10/05/19 10:16 Urine Total Protein 66 mg/dL (5-11.8) H 10/05/19 10:16 Medications & Allergies - Medications Allergies/Adverse Reactions: Allergies No Known Allergies Allergy (Verified 10/01/19 06:31) Active Medications: Generic Name Dose Route Start Last Admin Trade Name Freq PRN Reason Stop Dose Admin Acetaminophen 650 mg 10/01/19 09:10 Tylenol PO Q6H PRN Pain MILD(1-3)/Fever >100.5/PALOMARES Albuterol 2.5 mg 10/01/19 09:10 Proventil IH Q3HRT PRN Shortness Of Breath Lipase/Protease/Amylase 1 each 10/02/19 11:[address] 10,500 Unit FEEDTUBE PRN PRN For Clogged Feeding Tube Apixaban 5 mg 10/05/19 11:00 10/06/19 10:33 Eliquis PO 5 mg Q12HR CLARKE Administration Ascorbic Acid 500 mg 10/01/19 16:00 10/06/19 10:33 Vitamin C PO 500 mg BID CLARKE Administration Dextrose 50 ml 10/01/19 09:10 D50w (25gm) Syringe IV Q30MIN PRN Hypoglycemia Protocol Famotidine 20 mg 10/04/19 10:00 10/06/19 10:33 Pepcid PO 20 mg DAILY CLARKE Administration Fentanyl 50 mcg 10/01/19 15:03 Sublimaze IV Q10MIN PRN ANALGESIA Hydralazine HCl 10 mg 10/01/19 09:20 10/04/19 10:00 Apresoline IV 10 mg Q4HR PRN Administration Hypertension Hydrophilic Ointment 1 applic 10/01/19 13:33 Vaseline Lip Therapy TP Q2HR PRN Dry Lips Hydrophilic Ointment 1 applic 10/04/19 14:47 Vaseline Lip Therapy TP Q2HR PRN Dry Lips Propofol 1,000 mg in 100 mls @ 1.905 mls/hr 10/01/19 14:00 10/06/19 15:30 Diprivan 10 Mg/Ml IV 50 mcg/kg/min TITR CLARKE 19.051 mls/hr Administration Protocol 5 MCG/KG/MIN Fentanyl Citrate 2,000 mcg in 100 mls @ 3.175 mls/hr 10/01/19 16:00 10/06/19 14:31 Fentanyl Drip Premix IV 4 mcg/kg/hr TITR CLARKE 12.701 mls/hr Titration Protocol 1 MCG/KG/HR Midazolam HCl 100 mg/ Sodium 100 mls @ 2 mls/hr 10/04/19 15:00 10/06/19 14:39 Chloride IV 5 mg/hr TITR CLARKE 5 mls/hr Titration Protocol 2 MG/HR Sodium Chloride 500 mls @ 10 mls/hr 10/04/19 16:00 Nacl 0.9% 500 Ml IV DIRECT CL[facility]KE Norepinephrine 4 mg in 250 mls @ 37.5 mls/hr 10/04/19 18:00 10/06/19 14:44 Levophed Drip 4 Mg/Ns 250 Ml IV 4 mcg/min TITR CLARKE 15 mls/hr Titration Protocol 10 MCG/MIN Insulin Human Isoph/Insulin Regular 40 unit 10/05/19 17:00 10/06/19 10:34 Humulin 70/30 SUB-Q 40 unit BIDDIAB CL[facility] Administration Insulin Human Lispro 0 unit 10/01/19 12:00 10/06/19 10:59 Humalog SUB-Q 6 unit Q6HR [facility] Administration Protocol Methylprednisolone Sodium Succinate 40 mg 10/03/19 14:00 10/06/19 15:27 Solu-Medrol IV 40 mg Q8HR CL[facility] Administration Metoclopramide HCl 10 mg 10/01/19 09:10 Reglan IV Q6H PRN Nausea And Vomiting Midazolam HCl 2 mg 10/04/19 14:47 Versed IV Q10MIN PRN Sedation Multi-Ingred Cream/Lotion/Oil/Oint 1 applic 10/01/19 13:33 Artificial Tears Ophth Oint OU Q4HR PRN Dry Eye(s) Multi-Ingred Cream/Lotion/Oil/Oint 1 applic 10/04/19 14:47 Artificial Tears Ophth Oint OU Q4HR PRN Dry Eye(s) Naloxone HCl 0.1 mg 10/01/19 09:10 Naloxone IV Q2MIN PRN Res Rate </= 8 or 02 SAT < 92% Simple Syrup 15 ml 10/02/19 11:44 Simple Syrup FEEDTUBE PRN PRN Hypoglycemia Simple Syrup 30 ml 10/02/19 11:44 Simple Syrup FEEDTUBE PRN PRN Hypoglycemia Sodium Bicarbonate 325 mg 10/02/19 11:44 Sodium Bicarbonate FEEDTUBE PRN PRN For Clogged Feeding Tube Sodium Chloride 10 ml 10/01/19 10:00 10/06/19 10:50 Sodium Chloride Flush Syringe 10 Ml IV 10 ml BID [facility] Administration Sodium Chloride 10 ml 10/01/19 09:10 Sodium Chloride Flush Syringe 10 Ml IV PRN PRN LINE FLUSH Sodium Chloride 5 ml 10/04/19 14:47 Nacl 0.9% 500 Ml IV DIRECT PRN [employer] Zinc Sulfate 220 mg 10/01/19 16:00 10/06/19 10:33 Zinc Sulfate PO 220 mg BID [facility] Administration
[2019-10-06 16:38] LABS: ABG Base Excess -2.8 mmol/L (-2.0-3.0); ABG HCO3 25.3 mmol/L (20.0-26.0); ABG Oxygen Saturation 79.5 % (95.0-99.0); ABG PCO2 60.2 mm Hg; ABG PH 7.241 pH Units (7.350-7.450); ABG PO2 49.7 mm Hg (80.0-90.0)
[2019-10-06] MEDS ORDERED: ENOXAPARIN 30 MG/0.3 ML INJ SUB-Q SCH (22:00)
[2019-10-07] MEDS: methylPREDNISolone Sod Succinate 40 MG/1 ML INJ IV SCH ×3 (05:00→21:32)
[2019-10-07] MEDS: fentaNYL DRIP Premix 2,000 MCG/100 ML BAG IV SCH ×3 (05:06→21:29)
[2019-10-07 05:10] LABS: ABG Base Excess -1.6 mmol/L (-2.0-3.0); ABG HCO3 24.9 mmol/L (20.0-26.0); ABG Methemoglobin 0.6 % (0.0-1.5); ABG Oxygen Saturation 99.4 % (95.0-99.0); ABG PCO2 50.1 mm Hg; ABG PH 7.314 pH Units (7.350-7.450); ABG PO2 281.9 mm Hg (80.0-90.0)
[2019-10-07 05:39] LABS: Calcium 8.1 mg/dL (8.4-10.2)
[2019-10-07 06:30] LABS: Hemoglobin 10.8 gm/dl (10.1-14.3); Mean Corpuscular HGB Conc 33 % (30-34); Mean Corpuscular Volume 90 fl (79-97); Red Blood Count 3.65 M/mm3 (3.65-5.03); Red Cell Distribution Width 15.3 % (13.2-15.2)
[2019-10-07] MEDS: INSULIN LISPRO 100 UNIT/ML SUB-Q SCH ×3 (06:38→14:01)
[2019-10-07 06:40] LABS: Platelet Count 63 K/mm3 (140-440)
[2019-10-07 09:19] LABS: ABG Base Excess -2.9 mmol/L (-2.0-3.0); ABG HCO3 22.7 mmol/L (20.0-26.0); ABG Methemoglobin 0.5 % (0.0-1.5); ABG PCO2 42.8 mm Hg; ABG PH 7.342 pH Units (7.350-7.450); ABG PO2 170.9 mm Hg (80.0-90.0)
--- NOTE | 2019-10-07 09:32 | Progress Note ---
Assessment and Plan Severe sepsis secondary to COVID COVID pneumonia with ARDS Acute hypoxemic respiratory failure, orally intubated on MVS Multi-lobar pneumonia FANI Thrombocytopenia - PEEP at 20 monitor airway pressures closely -Place back supine now - Wean supplemental oxygen for target O2 sats > 94% -Was unable to transfer patient yesterday fro ECMO and CVVHD, no beds available She mas markedly improved oxygenation with proning. Will place her supine now. Worsening renal indices, plan to wean off vasopressor support within the next few hours. Discussed with renal the possibility of [employer] With her respiratory status, I need conservative fluid management at this time. -ABG, CXR daily -CBC, BMP daily - Daily SAT's and SBT assessment - current ventilator demands precludes this - VAP bundle addressed - Lung protective strategies -Fluid conservative measures as tolerated by hemodynamics and renal function - Bronchodilators with pulmonary hygiene per RT - Accuchecks with glycemic control per SSI (While critically ill target blood glucose of 140-180 mg/dL; avoid hypoglycemia) - Avoid benzodiazepines, reduce the possibility of delirium - prn analgesia per CPOT score - Maintenance of sleep-wake cycle, avoid delirium -Avoid nephrotoxins, closely monitor renal function -Alexis catheter for accurate intake and output monitoring in this critically ill patient with COVID-ARDS, severe hypoxemia -Empiric antibiotics( Ceftriaxone and Azithromycin for CAP ) -Aspiration precautions, HOB >40 -Sedation Fentanyl, Propofol and midazolam titrate to RASS -2 to -4 - Stress ulcer prophylaxis ( Famotidine) - Mobility protocol, off loading and skin assessment for pressure ulcer prevention - Monitor hemodynamics closely -Supportive transfusions as indicated to keep HgB >7g/dL -Continue intrarterial line for frequent ABG and invasive hemodynamic monitoring -Early consideration for transfer for evaluation for ECMO if she does not impro ve or there is ongoing deterioration COVID SPECIFIC INTERVENTIONS -Needs aggressive management per ID/Pulmonary drive protocols -Airborne, contact isolation for COVID per facility protocols -Patient has renal impairment and is not a candidate for Remdesivir at this time -Consent and administration of convalescent plasma per facility protocol -Continue with steroids, solumedrol IV 40mg q8 -Continue with therapeutic anticoagulation. On Eliquis started, HIT panel results pending -Trend inflammatory markers per facility protocol -Continue all supportive care -Contact tracing and testing of her contacts Discussed with the ICU team-RT,RN, Life threatening condition- Severe sepsis with COVID 19 ARDS acute hypoxemic respiratory failure on MVS Mortality/Morbidity- High Complexity of medical decision making- High CONDITION: CRITICAL PROGNOSIS: GUARDED-GRAVE CODE STATUS: FULL CODE The high probability of a clinically significant, sudden or life-threatening deterioration of the [respiratory , cardiovascular, renal, neurology] system(s) required my full and direct attention, intervention and personal management. The aggregate critical care time was [45] minutes without overlap. Time includes spent on; [x] Data Review and interpretation [x] Patient assessment and monitoring of vital signs [x] Documentation [x] Medication orders and management Subjective Date of service: 10/07/19 Principal diagnosis: Ac. hypoxemic resp failure; ARDS; COVID-19 virus infxn; PNA; Severe sepsis Interval history: Patient is seen today for: Ac. hypoxemic resp failure; ARDS; COVID-19 virus infection; Bilateral pneumonia; Severe sepsis; FANI Seen and examined at bedside; 24hour events reviewed; nursing and respiratory care staff consulted; no adverse overnight events reported to me; resting in bed; maintaining oxygen saturations at 100%, has been proned fro 18 hours, on norepinephrine at 8mcg with MAP >70 No fevers, on Fentanyl, Midazolam and propofol. Objective Vital Signs - 12hr 10/06/19 10/06/19 10/06/19 21:46 22:00 22:16 Temperature Pulse Rate 89 89 87 Respiratory 30 H 30 H 30 H Rate Blood Pressure 132/74 97/59 93/58 O2 Sat by Pulse 95 95 97 Oximetry 10/06/19 10/06/19 10/06/19 22:30 22:46 23:00 Temperature Pulse Rate 85 85 87 Respiratory 30 H 30 H 30 H Rate Blood Pressure 97/59 96/59 90/56 O2 Sat by Pulse 98 100 100 Oximetry 10/06/19 10/06/19 10/06/19 23:16 23:30 23:46 Temperature Pulse Rate 86 84 84 Respiratory 30 H 30 H 30 H Rate Blood Pressure 84/50 84/47 80/48 O2 Sat by Pulse 100 100 100 Oximetry 10/07/19 10/07/19 10/07/19 00:00 00:10 00:16 Temperature 98.0 F Pulse Rate 76 75 74 Respiratory 30 H 30 H Rate Blood Pressure 120/79 169/84 144/85 O2 Sat by Pulse 100 100 100 Oximetry 0710/07/19 10/07/19 00:30 00:46 01:00 Temperature Pulse Rate 74 77 77 Respiratory 30 H 30 H 30 H Rate Blood Pressure 137/83 144/85 119/76 O2 Sat by Pulse 100 100 100 Oximetry 10/07/19 10/07/19 10/07/19 01:16 01:30 01:46 Temperature Pulse Rate 75 74 74 Respiratory 30 H 30 H 30 H Rate Blood Pressure 126/79 125/78 126/79 O2 Sat by Pulse 100 100 100 Oximetry 10/07/19 10/07/19 10/07/19 02:00 02:16 02:30 Temperature Pulse Rate 73 72 70 Respiratory 30 H 30 H 30 H Rate Blood Pressure 125/77 122/77 129/77 O2 Sat by Pulse 100 100 100 Oximetry 10/07/19 10/07/19 10/07/19 02:46 03:00 03:16 Temperature Pulse Rate 69 70 69 Respiratory 30 H 30 H 30 H Rate Blood Pressure 132/77 131/78 135/78 O2 Sat by Pulse 100 100 100 Oximetry 10/07/19 10/07/19 10/07/19 03:30 03:34 03:46 Temperature Pulse Rate 76 71 69 Respiratory 20 30 H Rate Blood Pressure 130/75 145/71 133/77 O2 Sat by Pulse 100 100 100 Oximetry 10/07/19 10/07/19 10/07/19 03:57 04:00 04:16 Temperature 97.9 F Pulse Rate 86 76 77 Respiratory 30 H 30 H Rate Blood Pressure 79/44 82/45 O2 Sat by Pulse 100 100 Oximetry 10/07/19 10/07/19 10/07/19 04:30 04:46 05:00 Temperature Pulse Rate 76 77 76 Respiratory 30 H 30 H 30 H Rate Blood Pressure 85/50 89/50 88/52 O2 Sat by Pulse 100 100 100 Oximetry 10/07/19 10/07/19 10/07/19 05:16 05:30 05:46 Temperature Pulse Rate 63 63 67 Respiratory 30 H 30 H 30 H Rate Blood Pressure 169/89 160/84 153/85 O2 Sat by Pulse 100 100 100 Oximetry 10/07/19 10/07/19 10/07/19 06:00 06:15 06:30 Temperature Pulse Rate 66 68 67 Respiratory 30 H 30 H 30 H Rate Blood Pressure 145/83 144/83 142/79 O2 Sat by Pulse 100 100 100 Oximetry 10/07/19 10/07/19 10/07/19 06:46 07:00 07:16 Temperature Pulse Rate 68 69 67 Respiratory 30 H 30 H 30 H Rate Blood Pressure 136/77 135/76 137/79 O2 Sat by Pulse 100 100 100 Oximetry 10/07/19 10/07/19 10/07/19 07:30 07:46 08:00 Temperature 97.9 F Pulse Rate 68 69 70 Respiratory 30 H 30 H 30 H Rate Blood Pressure 136/81 147/83 144/81 O2 Sat by Pulse 100 100 100 Oximetry 10/07/19 10/07/19 10/07/19 08:16 08:30 08:46 Temperature Pulse Rate 69 68 67 Respiratory 30 H 30 H 30 H Rate Blood Pressure 144/80 140/80 128/72 O2 Sat by Pulse 100 100 100 Oximetry Constitutional: appears uncomfortable, other (elderly looking AAF with mildly increased resp effort at rest on mvs, proned) Eyes: non-icteric ENT: other (ETT 24 cm GLYNN) Neck: supple, no lymphadenopathy, no JVD Effort: mildly labored, very labored Ascultation: Bilateral: diminished breath sounds, rales Percussion: Bilateral: not dull Cardiovascular: regular rate and rhythm, other (S1,S2, no murmurs) Gastrointestinal: normoactive bowel sounds, soft, non-tender, non-distended Integumentary: normal Extremities: no cyanosis, no edema, pulses normal, no ischemia or petechiae Neurologic: other (unable to assess, sedated) Psychiatric: other (unable to assess, sedated) CBC and BMP: 10/07/19 05:00 10/07/19 05:00 ABG, PT/INR, D-dimer: ABG ABG pH 7.314 pH Units (7.350-7.450) L 10/07/19 Unknown ABG pCO2 50.1 mm Hg 10/07/19 Unknown ABG pO2 281.9 mm Hg (80.0-90.0) H 10/07/19 Unknown ABG O2 Saturation 99.4 % (95.0-99.0) H 10/07/19 Unknown PT/INR, D-dimer PT 14.5 Sec. (12.2-14.9) 10/01/19 05:36 INR 1.15 (0.87-1.13) H 10/01/19 05:36 D-Dimer > 17905 ng/mlDDU (0-234) H 10/05/19 12:10 Abnormal lab findings: Abnormal Labs 10/01/19 10/01/19 10/01/19 05:36 05:36 05:36 WBC RDW Plt Count [place] # Seg Neuts % (Manual) Lymphocytes % (Manual) Nucleated RBC % Seg Neutrophils # Seg Neutrophils # Man Lymphocytes # (Manual) Monocytes # (Manual) INR 1.15 H D-Dimer 1648.23 H ABG pH ABG pO2 ABG HCO3 ABG O2 Saturation ABG Base Excess ABG Hemoglobin Oxyhemoglobin Sodium Potassium Chloride Carbon Dioxide BUN Creatinine Glucose 424 H POC Glucose Lactic Acid Calcium Phosphorus Magnesium Ferritin 1745.0 H AST ALT Lactate Dehydrogenase 822 H C-Reactive Protein 15.10 H NT-Pro-B Natriuret Pep Albumin Triglycerides Urine WBC (Auto) Urine Creatinine Urine Total Protein Coronavirus (PCR) 10/01/19 10/01/19 10/01/19 05:36 05:36 06:31 WBC 12.8 H RDW Plt Count [place] # Seg Neuts % (Manual) 93.0 H Lymphocytes % (Manual) 2.0 L Nucleated RBC % Seg Neutrophils # Seg Neutrophils # Man 11.9 H Lymphocytes # (Manual) 0.3 L Monocytes # (Manual) INR D-Dimer ABG pH ABG pO2 ABG HCO3 ABG O2 Saturation ABG Base Excess ABG Hemoglobin Oxyhemoglobin Sodium Potassium Chloride Carbon Dioxide 13 L BUN 34 H Creatinine 1.4 H Glucose 413 H POC Glucose Lactic Acid 7.20 H* Calcium Phosphorus Magnesium Ferritin AST 54 H ALT 64 H Lactate Dehydrogenase C-Reactive Protein NT-Pro-B Natriuret Pep Albumin 3.4 L Triglycerides Urine WBC (Auto) Urine Creatinine Urine Total Protein Coronavirus (PCR) 10/01/19 10/01/19 10/01/19 09:10 10:05 12:24 WBC RDW Plt Count [place] # Seg Neuts % (Manual) Lymphocytes % (Manual) Nucleated RBC % Seg Neutrophils # Seg Neutrophils # Man Lymphocytes # (Manual) Monocytes # (Manual) INR D-Dimer 1957.06 H ABG pH ABG pO2 ABG HCO3 ABG O2 Saturation ABG Base Excess ABG Hemoglobin Oxyhemoglobin Sodium Potassium Chloride Carbon Dioxide BUN Creatinine Glucose POC Glucose 354 H Lactic Acid Calcium Phosphorus Magnesium Ferritin AST ALT Lactate Dehydrogenase C-Reactive Protein NT-Pro-B Natriuret Pep Albumin Triglycerides Urine WBC (Auto) Urine Creatinine 179.4 H Urine Total Protein Coronavirus (PCR) 10/01/19 10/01/19 10/01/19 12:24 12:24 12:45 WBC RDW Plt Count [place] # Seg Neuts % (Manual) Lymphocytes % (Manual) Nucleated RBC % Seg Neutrophils # Seg Neutrophils # Man Lymphocytes # (Manual) Monocytes # (Manual) INR D-Dimer ABG pH ABG pO2 ABG HCO3 ABG O2 Saturation ABG Base Excess ABG Hemoglobin Oxyhemoglobin Sodium Potassium Chloride Carbon Dioxide BUN Creatinine Glucose 346 H POC Glucose Lactic Acid Calcium Phosphorus 4.70 H Magnesium 2.50 H Ferritin 1646.0 H AST ALT Lactate Dehydrogenase 766 H C-Reactive Protein 18.60 H NT-Pro-B Natriuret Pep 1525 H Albumin Triglycerides Urine WBC (Auto) Urine Creatinine Urine Total Protein Coronavirus (PCR) 10/01/19 10/01/19 10/01/19 14:30 17:20 18:15 WBC RDW Plt Count [place] # Seg Neuts % (Manual) Lymphocytes % (Manual) Nucleated RBC % Seg Neutrophils # Seg Neutrophils # Man Lymphocytes # (Manual) Monocytes # (Manual) INR D-Dimer ABG pH 7.263 L 7.289 L ABG pO2 60.7 L 52.1 L ABG HCO3 ABG O2 Saturation 88.2 L 83.2 L ABG Base Excess -6.4 L -4.8 L ABG Hemoglobin 10.5 L Oxyhemoglobin 86.6 L 81.4 L Sodium Potassium Chloride Carbon Dioxide BUN Creatinine Glucose POC Glucose 299 H Lactic Acid Calcium Phosphorus Magnesium Ferritin AST ALT Lactate Dehydrogenase C-Reactive Protein NT-Pro-B Natriuret Pep Albumin Triglycerides Urine WBC (Auto) Urine Creatinine Urine Total Protein Coronavirus (PCR) 10/01/19 10/01/19 10/01/19 21:08 21:35 Unknown WBC RDW Plt Count [place] # Seg Neuts % (Manual) Lymphocytes % (Manual) Nucleated RBC % Seg Neutrophils # Seg Neutrophils # Man Lymphocytes # (Manual) Monocytes # (Manual) INR D-Dimer ABG pH 7.327 L ABG pO2 75.1 L ABG HCO3 ABG O2 Saturation 94.5 L ABG Base Excess -4.4 L ABG Hemoglobin Oxyhemoglobin 92.8 L Sodium Potassium Chloride Carbon Dioxide BUN Creatinine Glucose POC Glucose 266 H Lactic Acid Calcium Phosphorus Magnesium Ferritin AST ALT Lactate Dehydrogenase C-Reactive Protein NT-Pro-B Natriuret Pep Albumin Triglycerides Urine WBC (Auto) Urine Creatinine Urine Total Protein Coronavirus (PCR) Positive A 10/02/19 10/02/19 10/02/19 01:23 03:55 05:18 WBC 17.8 H RDW Plt Count [place] # Seg Neuts % (Manual) 93.0 H Lymphocytes % (Manual) 5.0 L Nucleated RBC % 1.0 H Seg Neutrophils # Seg Neutrophils # Man 16.6 H Lymphocytes # (Manual) 0.9 L Monocytes # (Manual) INR D-Dimer ABG pH 7.308 L ABG pO2 129.3 H ABG HCO3 ABG O2 Saturation ABG Base Excess -4.9 L ABG Hemoglobin 16.1 H Oxyhemoglobin Sodium Potassium Chloride Carbon Dioxide BUN Creatinine Glucose POC Glucose 291 H Lactic Acid Calcium Phosphorus Magnesium Ferritin AST ALT Lactate Dehydrogenase C-Reactive Protein NT-Pro-B Natriuret Pep Albumin Triglycerides Urine WBC (Auto) Urine Creatinine Urine Total Protein Coronavirus (PCR) 10/02/19 10/02/19 10/02/19 05:18 07:15 15:28 WBC RDW Plt Count [place] # Seg Neuts % (Manual) Lymphocytes % (Manual) Nucleated RBC % Seg Neutrophils # Seg Neutrophils # Man Lymphocytes # (Manual) Monocytes # (Manual) INR D-Dimer ABG pH ABG pO2 ABG HCO3 ABG O2 Saturation ABG Base Excess ABG Hemoglobin Oxyhemoglobin Sodium Potassium Chloride 111.1 H Carbon Dioxide 19 L BUN 44 H Creatinine 2.4 H D Glucose 227 H POC Glucose 196 H Lactic Acid Calcium Phosphorus Magnesium Ferritin AST ALT Lactate Dehydrogenase C-Reactive Protein NT-Pro-B Natriuret Pep Albumin Triglycerides Urine WBC (Auto) Urine Creatinine 336.4 H Urine Total Protein Coronavirus (PCR) 10/02/19 10/03/19 10/03/19 17:57 00:32 04:02 WBC 17.2 H RDW Plt Count [place] # Seg Neuts % (Manual) 95.0 H Lymphocytes % (Manual) 3.0 L Nucleated RBC % 2.0 H Seg Neutrophils # Seg Neutrophils # Man 16.3 H Lymphocytes # (Manual) 0.5 L Monocytes # (Manual) INR D-Dimer ABG pH ABG pO2 ABG HCO3 ABG O2 Saturation ABG Base Excess ABG Hemoglobin Oxyhemoglobin Sodium Potassium Chloride Carbon Dioxide BUN Creatinine Glucose POC Glucose 137 H 184 H Lactic Acid Calcium Phosphorus Magnesium Ferritin AST ALT Lactate Dehydrogenase C-Reactive Protein NT-Pro-B Natriuret Pep Albumin Triglycerides Urine WBC (Auto) Urine Creatinine Urine Total Protein Coronavirus (PCR) 10/03/19 10/03/19 10/03/19 04:02 04:26 05:20 WBC RDW Plt Count [place] # Seg Neuts % (Manual) Lymphocytes % (Manual) Nucleated RBC % Seg Neutrophils # Seg Neutrophils # Man Lymphocytes # (Manual) Monocytes # (Manual) INR D-Dimer ABG pH 7.336 L ABG pO2 70.1 L ABG HCO3 ABG O2 Saturation 94.0 L ABG Base Excess -3.8 L ABG Hemoglobin Oxyhemoglobin 92.4 L Sodium Potassium Chloride 108.9 H Carbon Dioxide 19 L BUN 64 H Creatinine 2.1 H Glucose 212 H POC Glucose 197 H Lactic Acid Calcium Phosphorus Magnesium Ferritin AST ALT Lactate Dehydrogenase C-Reactive Protein NT-Pro-B Natriuret Pep Albumin Triglycerides Urine WBC (Auto) Urine Creatinine Urine Total Protein Coronavirus (PCR) 10/03/19 10/03/19 10/03/19 11:22 11:58 18:44 WBC RDW Plt Count [place] # Seg Neuts % (Manual) Lymphocytes % (Manual) Nucleated RBC % Seg Neutrophils # Seg Neutrophils # Man Lymphocytes # (Manual) Monocytes # (Manual) INR D-Dimer ABG pH ABG pO2 ABG HCO3 ABG O2 Saturation ABG Base Excess ABG Hemoglobin Oxyhemoglobin Sodium Potassium Chloride Carbon Dioxide BUN Creatinine Glucose POC Glucose 248 H 245 H 324 H Lactic Acid Calcium Phosphorus Magnesium Ferritin AST ALT Lactate Dehydrogenase C-Reactive Protein NT-Pro-B Natriuret Pep Albumin Triglycerides Urine WBC (Auto) Urine Creatinine Urine Total Protein Coronavirus (PCR) 10/03/19 10/04/19 10/04/19 23:51 03:50 05:35 WBC RDW Plt Count [place] # Seg Neuts % (Manual) Lymphocytes % (Manual) Nucleated RBC % Seg Neutrophils # Seg Neutrophils # Man Lymphocytes # (Manual) Monocytes # (Manual) INR D-Dimer ABG pH ABG pO2 129.4 H ABG HCO3 ABG O2 Saturation ABG Base Excess -3.5 L ABG Hemoglobin Oxyhemoglobin Sodium Potassium Chloride Carbon Dioxide BUN Creatinine Glucose POC Glucose 182 H 177 H Lactic Acid Calcium Phosphorus Magnesium Ferritin AST ALT Lactate Dehydrogenase C-Reactive Protein NT-Pro-B Natriuret Pep Albumin Triglycerides Urine WBC (Auto) Urine Creatinine Urine Total Protein Coronavirus (PCR) 10/04/19 10/04/19 10/04/19 11:39 16:30 16:30 WBC 21.2 H RDW 16.0 H Plt Count 93 L [place] # Seg Neuts % (Manual) 92.0 H Lymphocytes % (Manual) 3.0 L Nucleated RBC % 4.0 H Seg Neutrophils # Seg Neutrophils # Man 19.5 H Lymphocytes # (Manual) 0.6 L Monocytes # (Manual) 1.1 H INR D-Dimer ABG pH ABG pO2 ABG HCO3 ABG O2 Saturation ABG Base Excess ABG Hemoglobin Oxyhemoglobin Sodium Potassium Chloride 109.0 H Carbon Dioxide 21 L BUN 94 H Creatinine 2.3 H Glucose 345 H POC Glucose 265 H Lactic Acid Calcium Phosphorus Magnesium Ferritin AST ALT Lactate Dehydrogenase C-Reactive Protein NT-Pro-B Natriuret Pep Albumin Triglycerides Urine WBC (Auto) Urine Creatinine Urine Total Protein Coronavirus (PCR) 10/04/19 10/04/19 10/04/19 18:04 18:50 23:19 WBC RDW Plt Count [place] # Seg Neuts % (Manual) Lymphocytes % (Manual) Nucleated RBC % Seg Neutrophils # Seg Neutrophils # Man Lymphocytes # (Manual) Monocytes # (Manual) INR D-Dimer ABG pH 7.322 L ABG pO2 183.3 H ABG HCO3 18.1 L ABG O2 Saturation 99.1 H ABG Base Excess -7.2 L ABG Hemoglobin 11.8 L Oxyhemoglobin Sodium Potassium Chloride Carbon Dioxide BUN Creatinine Glucose POC Glucose 333 H 366 H Lactic Acid Calcium Phosphorus Magnesium Ferritin AST ALT Lactate Dehydrogenase C-Reactive Protein NT-Pro-B Natriuret Pep Albumin Triglycerides Urine WBC (Auto) Urine Creatinine Urine Total Protein Coronavirus (PCR) 10/05/19 10/05/19 10/05/19 04:00 05:05 06:00 WBC RDW Plt Count [place] # Seg Neuts % (Manual) Lymphocytes % (Manual) Nucleated RBC % Seg Neutrophils # Seg Neutrophils # Man Lymphocytes # (Manual) Monocytes # (Manual) INR D-Dimer ABG pH 7.223 L ABG pO2 93.7 H ABG HCO3 19.4 L ABG O2 Saturation ABG Base Excess -8.3 L ABG Hemoglobin Oxyhemoglobin Sodium Potassium Chloride Carbon Dioxide BUN Creatinine Glucose POC Glucose 362 H Lactic Acid Calcium Phosphorus Magnesium Ferritin AST ALT Lactate Dehydrogenase C-Reactive Protein NT-Pro-B Natriuret Pep Albumin Triglycerides 518 H Urine WBC (Auto) Urine Creatinine Urine Total Protein Coronavirus (PCR) 10/05/19 10/05/19 10/05/19 06:00 06:00 10:16 WBC 18.6 H RDW 16.6 H Plt Count 78 L [place] # Seg Neuts % (Manual) 95.0 H Lymphocytes % (Manual) 0 L Nucleated RBC % 4.0 H Seg Neutrophils # Seg Neutrophils # Man 17.7 H Lymphocytes # (Manual) 0.0 L Monocytes # (Manual) INR D-Dimer ABG pH ABG pO2 ABG HCO3 ABG O2 Saturation ABG Base Excess ABG Hemoglobin Oxyhemoglobin Sodium Potassium 5.2 H Chloride 110.9 H Carbon Dioxide 17 L BUN 101 H Creatinine 3.2 H Glucose 368 H POC Glucose Lactic Acid Calcium Phosphorus Magnesium Ferritin AST ALT Lactate Dehydrogenase C-Reactive Protein NT-Pro-B Natriuret Pep Albumin Triglycerides Urine WBC (Auto) Urine Creatinine 179.4 H Urine Total Protein 66 H Coronavirus (PCR) 10/05/19 10/05/19 10/05/19 10:17 11:43 12:10 WBC RDW Plt Count [place] # Seg Neuts % (Manual) Lymphocytes % (Manual) Nucleated RBC % Seg Neutrophils # Seg Neutrophils # Man Lymphocytes # (Manual) Monocytes # (Manual) INR D-Dimer > 29238 H ABG pH ABG pO2 ABG HCO3 ABG O2 Saturation ABG Base Excess ABG Hemoglobin Oxyhemoglobin Sodium Potassium Chloride Carbon Dioxide BUN Creatinine Glucose POC Glucose 328 H Lactic Acid Calcium Phosphorus Magnesium Ferritin AST ALT Lactate Dehydrogenase C-Reactive Protein NT-Pro-B Natriuret Pep Albumin Triglycerides Urine WBC (Auto) 25.0 H Urine Creatinine Urine Total Protein Coronavirus (PCR) 10/05/19 10/05/19 10/06/19 17:35 17:57 00:46 WBC RDW Plt Count [place] # Seg Neuts % (Manual) Lymphocytes % (Manual) Nucleated RBC % Seg Neutrophils # Seg Neutrophils # Man Lymphocytes # (Manual) Monocytes # (Manual) INR D-Dimer ABG pH ABG pO2 ABG HCO3 ABG O2 Saturation ABG Base Excess -3.8 L ABG Hemoglobin Oxyhemoglobin Sodium Potassium Chloride Carbon Dioxide BUN Creatinine Glucose POC Glucose 292 H 295 H Lactic Acid Calcium Phosphorus Magnesium Ferritin AST ALT Lactate Dehydrogenase C-Reactive Protein NT-Pro-B Natriuret Pep Albumin Triglycerides Urine WBC (Auto) Urine Creatinine Urine Total Protein Coronavirus (PCR) 10/06/19 10/06/19 10/06/19 03:32 06:07 06:07 WBC 20.5 H RDW 15.6 H Plt Count 79 L [place] # 0.9 H Seg Neuts % (Manual) 91.0 H Lymphocytes % (Manual) 0 L Nucleated RBC % 2.0 H Seg Neutrophils # 18.4 H Seg Neutrophils # Man 18.7 H Lymphocytes # (Manual) 0.0 L Monocytes # (Manual) INR D-Dimer ABG pH 7.339 L ABG pO2 ABG HCO3 ABG O2 Saturation ABG Base Excess -2.4 L ABG Hemoglobin 11.5 L Oxyhemoglobin 94.5 L Sodium 147 H Potassium Chloride 108.6 H Carbon Dioxide BUN 102 H Creatinine 3.2 H Glucose 305 H POC Glucose Lactic Acid Calcium 7.8 L Phosphorus Magnesium Ferritin AST ALT Lactate Dehydrogenase C-Reactive Protein NT-Pro-B Natriuret Pep Albumin Triglycerides Urine WBC (Auto) Urine Creatinine Urine Total Protein Coronavirus (PCR) 10/06/19 10/06/19 10/06/19 06:07 06:33 10:25 WBC RDW Plt Count [place] # Seg Neuts % (Manual) Lymphocytes % (Manual) Nucleated RBC % Seg Neutrophils # Seg Neutrophils # Man Lymphocytes # (Manual) Monocytes # (Manual) INR D-Dimer ABG pH ABG pO2 ABG HCO3 ABG O2 Saturation ABG Base Excess ABG Hemoglobin Oxyhemoglobin Sodium Potassium Chloride Carbon Dioxide BUN Creatinine Glucose POC Glucose 310 H 304 H Lactic Acid Calcium Phosphorus Magnesium Ferritin AST ALT Lactate Dehydrogenase C-Reactive Protein NT-Pro-B Natriuret Pep Albumin Triglycerides 467 H Urine WBC (Auto) Urine Creatinine Urine Total Protein Coronavirus (PCR) 10/06/19 10/06/19 10/06/19 16:20 16:51 Unknown WBC RDW Plt Count [place] # Seg Neuts % (Manual) Lymphocytes % (Manual) Nucleated RBC % Seg Neutrophils # Seg Neutrophils # Man Lymphocytes # (Manual) Monocytes # (Manual) INR D-Dimer ABG pH 7.241 L 7.295 L ABG pO2 49.7 L 48.4 L ABG HCO3 ABG O2 Saturation 79.5 L 81.0 L ABG Base Excess -2.8 L -2.7 L ABG Hemoglobin 11.9 L Oxyhemoglobin 77.4 L 79.2 L Sodium Potassium Chloride Carbon Dioxide BUN Creatinine Glucose POC Glucose 346 H Lactic Acid Calcium Phosphorus Magnesium Ferritin AST ALT Lactate Dehydrogenase C-Reactive Protein NT-Pro-B Natriuret Pep Albumin Triglycerides Urine WBC (Auto) Urine Creatinine Urine Total Protein Coronavirus (PCR) 10/07/19 10/07/19 10/07/19 00:10 05:00 05:00 WBC 21.1 H RDW 15.3 H Plt Count 63 L [place] # Seg Neuts % (Manual) Lymphocytes % (Manual) Nucleated RBC % Seg Neutrophils # Seg Neutrophils # Man Lymphocytes # (Manual) Monocytes # (Manual) INR D-Dimer ABG pH ABG pO2 ABG HCO3 ABG O2 Saturation ABG Base Excess ABG Hemoglobin Oxyhemoglobin Sodium 148 H Potassium Chloride Carbon Dioxide BUN 130 H Creatinine 4.2 H Glucose 228 H POC Glucose 227 H Lactic Acid Calcium 8.1 L Phosphorus Magnesium Ferritin AST ALT Lactate Dehydrogenase C-Reactive Protein NT-Pro-B Natriuret Pep Albumin Triglycerides Urine WBC (Auto) Urine Creatinine Urine Total Protein Coronavirus (PCR) 10/07/19 10/07/19 10/07/19 06:18 08:55 Unknown WBC RDW Plt Count [place] # Seg Neuts % (Manual) Lymphocytes % (Manual) Nucleated RBC % Seg Neutrophils # Seg Neutrophils # Man Lymphocytes # (Manual) Monocytes # (Manual) INR D-Dimer ABG pH 7.342 L 7.314 L ABG pO2 170.9 H 281.9 H ABG HCO3 ABG O2 Saturation 99.4 H ABG Base Excess -2.9 L ABG Hemoglobin 10.7 L 10.7 L Oxyhemoglobin Sodium Potassium Chloride Carbon Dioxide BUN Creatinine Glucose POC Glucose 223 H Lactic Acid Calcium Phosphorus Magnesium Ferritin AST ALT Lactate Dehydrogenase C-Reactive Protein NT-Pro-B Natriuret Pep Albumin Triglycerides Urine WBC (Auto) Urine Creatinine Urine Total Protein Coronavirus (PCR) Chest x-ray: image reviewed (10/05- ARDS, worsenig alveolar infiltrates 10/06- improving alveolar infiltrates) Allied health notes reviewed: RT
[2019-10-07 09:59] LABS: Basophils % (Manual) 0 % (0.0-1.8); Eosinophils % (Manual) 0 % (0.0-4.3); Total Cells Counted 100
[2019-10-07 10:02] LABS: Platelet Estimate Consistent w Auto; Schistocytes Rare
--- NOTE | 2019-10-07 10:44 | Progress Note ---
Assessment and Plan Assessment and plan: Sepsis. Continue IV antibiotics per ID. Follow-up blood cultures. Given elevated procalcitonin level we will continue with IV antibiotics Bilateral pneumonia. Etiology secondary COVID-19. Continue to follow up serial chest x-ray. ARDS. Continue vent per pulmonary. COVID 19 infection. Actemra x1 and remdesivir. Continue to trend inflammatory markers. Consider convalescent plasma therapy per ID. COVID coagulopathy. Continue with full anticoagulation. Acute hypoxic respiratory failure. Etiology secondary to above. Continue on mechanical ventilation per pulmonary recommendations. Transaminitis. Etiology secondary to sepsis/COVID. Continue to trend LFTs. Acute kidney injury. Etiology secondary to ATN/sepsis superimposed on vasomotor nephropathy. Continue to follow BMP Coag negative staph bacteremia. Continue IV antibiotics. 10/03/2019. Patient's daughter Evelio Plascencia has consented to convalescent plasma therapy. Await type and screen for patient enrollment. Continue mechanical ventilation per pulmonary. Patient currently AC mode ventilation rate of 20, tidal volume 450 FiO2 70% and PEEP of 12. Continue Solu-Medrol 40 mg IV daily. Wean sedation of propofol and fentanyl as needed. 10/04/2019. Convalescent plasma enrollment form has been submitted. Patient currently on mechanical ventilation AC mode rate 20, tidal volume 450 FiO2 100%. Continue IV Solu-Medrol. Wean sedation of propofol and fentanyl as needed. Patient not a candidate of remdesivir secondary to elevated creatinine. Continue ceftriaxone and azithromycin for total of 5 days. Continue to trend inflammatory markers. Prognosis is extremely guarded. 10/05/2019. Await convalescent plasma. Continue IV steroids, ceftriaxone, azithromycin and full anticoagulation. Creatinine elevated and thus not a candidate for Remdesivir. Patient actually with worsening creatinine secondary to acute kidney injury with ATN in the setting of septic shock superimposed on vasomotor nephropathy. Continue pressors to maintain MAP> 65. 10/06/2019. Patient currently on AC mode ventilation rate 30, tidal volume 450 FiO2 60% and PEEP of 18. Await convalescent plasma. Continue IV steroids, ceftriaxone, azithromycin and full anticoagulation. Creatinine elevated and thus not a candidate for Remdesivir. 10/07/2019. Patient currently on AC mode ventilation rate 30, tidal volume 450 FiO2 80% and PEEP of 18. Await convalescent plasma. Continue IV steroids, ceftriaxone, azithromycin and full anticoagulation. Creatinine elevated and thus not a candidate for Remdesivir. Cont. proning The high probability of a clinically significant, sudden or life threatening deterioration of the [respiratory] system(s) required my full and direct attention, intervention and personal management. The aggregate critical care time was [32] minutes. This time is in addition to time spent performing reported procedures but includes the following: [x] Data Review and interpretation [x] Patient assessment and monitoring of vital signs [x] Documentation [x] Medication orders and management History Interval history: The patient is a 64-year-old female who came into the emergency room with complaints of shortness of breath and cough. She has a history of diabetes and hypertension. Due to significant hypoxia, she was intubated and placed on mechanical ventilation. COVID-19 test is positive. Additionally, her labs show ferritin 1646, procalcitonin 1.73, LDH 766, CRP 18.6, mild transaminitis, d- dimer 1957. Hospitalist Physical - Constitutional Vitals: Temp Pulse Resp BP Pulse Ox 97.9 F 67 30 H 128/72 100 10/07/19 08:00 10/07/19 08:46 10/07/19 08:46 10/07/19 08:46 10/07/19 08:46 General appearance: Present: well-nourished, other (Patient on mechanical ventilation) - EENT Eyes: Present: PERRL, EOM intact ENT: hearing intact, clear oral mucosa, dentition normal - Neck Neck: Present: supple, normal ROM - Respiratory Respiratory effort: normal Respiratory: bilateral: CTA - Cardiovascular Rhythm: regular Heart Sounds: Present: S1 & S2. Absent: gallop, rub - Extremities Extremities: no ischemia, No edema, Full ROM - Abdominal General gastrointestinal: soft, non-tender, non-distended, normal bowel sounds - Integumentary Integumentary: Present: clear, warm, dry - Neurologic Neurologic: CNII-XII intact, moves all extremities HEART Score - HEART Score Troponin: Troponin T 0.018 ng/mL (0.00-0.029) 10/01/19 05:36 Results - Labs CBC & Chem 7: 10/07/19 05:00 10/07/19 05:00 Labs: Laboratory Last Values WBC 21.1 K/mm3 (4.5-11.0) H 10/07/19 05:00 RBC 3.65 M/mm3 (3.65-5.03) 10/07/19 05:00 Hgb 10.8 gm/dl (10.1-14.3) 10/07/19 05:00 Hct 33.0 % (30.3-42.9) 10/07/19 05:00 MCV 90 fl (79-97) 10/07/19 05:00 MCH 30 pg (28-32) 10/07/19 05:00 MCHC 33 % (30-34) 10/07/19 05:00 RDW 15.3 % (13.2-15.2) H 10/07/19 05:00 Plt Count 63 K/mm3 (140-440) L 10/07/19 05:00 Lymph % (Auto) Maintenance Mechanic Elevators 10/01/19 06:31 [place]ran % (Auto) 4.4 % (0.0-7.3) 10/06/19 06:07 Eos % (Auto) 0.1 % (0.0-4.3) 10/06/19 06:07 Baso % (Auto) Maintenance Mechanic Elevators 10/01/19 06:31 Lymph # Maintenance Mechanic Elevators 10/01/19 06:31 Cochran # 0.9 K/mm3 (0.0-0.8) H 10/06/19 06:07 Eos # 0.0 K/mm3 (0.0-0.4) 10/06/19 06:07 Baso # 0.0 K/mm3 (0.0-0.1) 10/06/19 06:07 Add Manual Diff Complete 10/07/19 05:00 Total Counted 100 10/07/19 05:00 Seg Neutrophils % Maintenance Mechan[employer] Elevators 10/07/19 05:00 Seg Neuts % (Manual) 93.0 % (40.0-70.0) H 10/07/19 05:00 Band Neutrophils % 0 % 10/07/19 05:00 Lymphocytes % (Manual) 1.0 % (13.4-35.0) L 10/07/19 05:00 Reactive Lymphs % (Man) 0 % 10/07/19 05:00 Monocytes % (Manual) 3.0 % (0.0-7.3) 10/07/19 05:00 Eosinophils % (Manual) 0 % (0.0-4.3) 10/07/19 05:00 Basophils % (Manual) 0 % (0.0-1.8) 10/07/19 05:00 Metamyelocytes % 3.0 % 10/07/19 05:00 Myelocytes % 0 % 10/07/19 05:00 Promyelocytes % 0 % 10/07/19 05:00 Blast Cells % 0 % 10/07/19 05:00 Nucleated RBC % 10.0 % (0.0-0.9) H 10/07/19 05:00 Seg Neutrophils # 18.4 K/mm3 (1.8-7.7) H 10/06/19 06:07 Seg Neutrophils # Man 19.6 K/mm3 (1.8-7.7) H 10/07/19 05:00 Band Neutrophils # 0.0 K/mm3 10/07/19 05:00 Lymphocytes # (Manual) 0.2 K/mm3 (1.2-5.4) L 10/07/19 05:00 Abs React Lymphs (Man) 0.0 K/mm3 10/07/19 05:00 Monocytes # (Manual) 0.6 K/mm3 (0.0-0.8) 10/07/19 05:00 Eosinophils # (Manual) 0.0 K/mm3 (0.0-0.4) 10/07/19 05:00 Basophils # (Manual) 0.0 K/mm3 (0.0-0.1) 10/07/19 05:00 Metamyelocytes # 0.6 K/mm3 10/07/19 05:00 Myelocytes # 0.0 K/mm3 10/07/19 05:00 Promyelocytes # 0.0 K/mm3 10/07/19 05:00 Blast Cells # 0.0 K/mm3 10/07/19 05:00 WBC Morphology Not Reportable 10/07/19 05:00 Hypersegmented Neuts Not Reportable 10/07/19 05:00 Hyposegmented Neuts Not Reportable 10/07/19 05:00 Hypogranular Neuts Not Reportable 10/07/19 05:00 Smudge Cells Not Reportable 10/07/19 05:00 Toxic Granulation Not Reportable 10/07/19 05:00 Toxic Vacuolation Not Reportable 10/07/19 05:00 Dohle Bodies Not Reportable 10/07/19 05:00 Pelger-Huet Anomaly Not Reportable 10/07/19 05:00 Dona Rods Not Reportable 10/07/19 05:00 Platelet Estimate Consistent w auto 10/07/19 05:00 Clumped Platelets Not Reportable 10/07/19 05:00 Plt Clumps, EDTA Not Reportable 10/07/19 05:00 Large Platelets Not Reportable 10/07/19 05:00 Giant Platelets Not Reportable 10/07/19 05:00 Platelet Satelliting Not Reportable 10/07/19 05:00 Plt Morphology Comment Not Reportable 10/07/19 05:00 RBC Morphology Not Reportable 10/07/19 05:00 Dimorphic RBCs Not Reportable 10/07/19 05:00 Polychromasia Few 10/07/19 05:00 Hypochromasia Not Reportable 10/07/19 05:00 Poikilocytosis Not Reportable 10/07/19 05:00 Anisocytosis Not Reportable 10/07/19 05:00 Microcytosis Not Reportable 10/07/19 05:00 Macrocytosis Not Reportable 10/07/19 05:00 Spherocytes Not Reportable 10/07/19 05:00 Pappenheimer Bodies Not Reportable 10/07/19 05:00 Sickle Cells Not Reportable 10/07/19 05:00 Target Cells Not Reportable 10/07/19 05:00 Tear Drop Cells Not Reportable 10/07/19 05:00 Ovalocytes Not Reportable 10/07/19 05:00 Helmet Cells Not Reportable 10/07/19 05:00 [place] Bodies Not Reportable 10/07/19 05:00 [place] Rings Not Reportable 10/07/19 05:00 [place] Cells Not Reportable 10/07/19 05:00 Bite Cells Not Reportable 10/07/19 05:00 Crenated Cell Not Reportable 10/07/19 05:00 Elliptocytes Not Reportable 10/07/19 05:00 Acanthocytes (Spur) Not Reportable 10/07/19 05:00 Rouleaux Not Reportable 10/07/19 05:00 Hemoglobin C Crystals Not Reportable 10/07/19 05:00 Schistocytes Rare 10/07/19 05:00 Malaria parasites Not Reportable 10/07/19 05:00 Cornelio Bodies Not Reportable 10/07/19 05:00 Hem Pathologist Commnt No 10/07/19 05:00 PT 14.5 Sec. (12.2-14.9) 10/01/19 05:36 INR 1.15 (0.87-1.13) H 10/01/19 05:36 APTT 28.6 Sec. (24.2-36.6) 10/01/19 05:36 D-Dimer > 47304 ng/mlDDU (0-234) H 10/05/19 12:10 ABG pH 7.314 pH Units (7.350-7.450) L 10/07/19 Unknown ABG pCO2 50.1 mm Hg 10/07/19 Unknown ABG pO2 281.9 mm Hg (80.0-90.0) H 10/07/19 Unknown ABG HCO3 24.9 mmol/L (20.0-26.0) 10/07/19 Unknown ABG O2 Saturation 99.4 % (95.0-99.0) H 10/07/19 Unknown ABG O2 Content 15.3 (0.0-44) 10/07/19 Unknown ABG Base Excess -1.6 mmol/L (-2.0-3.0) 10/07/19 Unknown ABG Hemoglobin 10.7 gm/dl (12.0-16.0) L 10/07/19 Unknown ABG Carboxyhemoglobin 1.3 % (0.0-5.0) 10/07/19 Unknown ABG Methemoglobin 0.6 % (0.0-1.5) 10/07/19 Unknown Oxyhemoglobin 97.5 % (95.0-99.0) 10/07/19 Unknown FiO2 100 % 10/07/19 Unknown Sodium 148 mmol/L (137-145) H 10/07/19 05:00 Potassium 4.2 mmol/L (3.6-5.0) 10/07/19 05:00 Chloride 106.7 mmol/L (98-107) 10/07/19 05:00 Carbon Dioxide 25 mmol/L (22-30) 10/07/19 05:00 Anion Gap 21 mmol/L 10/07/19 05:00 BUN 130 mg/dL (7-17) H 10/07/19 05:00 Creatinine 4.2 mg/dL (0.7-1.2) H 10/07/19 05:00 Estimated GFR 13 ml/min 10/07/19 05:00 BUN/Creatinine Ratio 31 % 10/07/19 05:00 Glucose 228 mg/dL (65-100) H 10/07/19 05:00 POC Glucose 223 (70-105) H 10/07/19 06:18 Ketones Quantitative Negative (Negative) 10/01/19 06:31 Lactic Acid 1.80 mmol/L (0.7-2.0) 10/02/19 08:04 Calcium 8.1 mg/dL (8.4-10.2) L 10/07/19 05:00 Phosphorus 4.70 mg/dL (2.5-4.5) H 10/01/19 12:45 Magnesium 2.50 mg/dL (1.7-2.3) H 10/01/19 12:45 Ferritin 1646.0 ng/mL (13.0-400.0) H 10/01/19 12:24 Total Bilirubin 0.30 mg/dL (0.1-1.2) 10/01/19 05:36 Direct Bilirubin < 0.2 mg/dL (0-0.2) 10/01/19 05:36 Indirect Bilirubin 0.1 mg/dL 10/01/19 05:36 AST 54 units/L (5-40) H 10/01/19 05:36 ALT 64 units/L (7-56) H 10/01/19 05:36 Alkaline Phosphatase 94 units/L (35-129) 10/01/19 05:36 Lactate Dehydrogenase 766 units/L (91-180) H 10/01/19 12:24 Troponin T 0.018 ng/mL (0.00-0.029) 10/01/19 05:36 C-Reactive Protein 18.60 mg/dL (0.00-1.30) H 10/01/19 12:24 NT-Pro-B Natriuret Pep 1525 pg/mL (0-900) H 10/01/19 12:45 Total Protein 6.6 g/dL (6.3-8.2) 10/01/19 05:36 Albumin 3.4 g/dL (3.9-5) L 10/01/19 05:36 Albumin/Globulin Ratio 1.1 % 10/01/19 05:36 Triglycerides 467 mg/dL (2-149) H 10/06/19 06:07 Procalcitonin 1.73 ng/mL (<0.15) 10/01/19 12:24 Urine Color Yellow (Yellow) 10/05/19 10:17 Urine Turbidity Cloudy (Clear) 10/05/19 10:17 Urine pH 5.0 (5.0-7.0) 10/05/19 10:17 Ur Specific [place] 1.018 (1.003-1.030) 10/05/19 10:17 Urine Protein 30 mg/dl mg/dL (Negative) 10/05/19 10:17 Urine Glucose (UA) Neg mg/dL (Negative) 10/05/19 10:17 Urine Ketones Neg mg/dL (Negative) 10/05/19 10:17 Urine Blood Mod (Negative) 10/05/19 10:17 Urine Nitrite Neg (Negative) 10/05/19 10:17 Urine Bilirubin Neg (Negative) 10/05/19 10:17 Urine Urobilinogen < 2.0 mg/dL (<2.0) 10/05/19 10:17 Ur Leukocyte Esterase Neg (Negative) 10/05/19 10:17 Urine WBC (Auto) 25.0 /HPF (0.0-6.0) H 10/05/19 10:17 Urine RBC (Auto) 109.0 /HPF (0.0-6.0) 10/05/19 10:17 U Epithel Cells (Auto) 3.0 /HPF (0-13.0) 10/05/19 10:17 Urine Bacteria (Auto) 1+ /HPF (Negative) 10/05/19 10:17 Urine Mucus Few /HPF 10/05/19 10:17 Urine Creatinine 179.4 mg/dL (0.1-20.0) H 10/05/19 10:16 Urine Microalbumin 6.7 mg/dL (0.1-34.0) 10/01/19 09:10 Microalb/Creat Ratio 37.3 ug/mg 10/01/19 09:10 Urine Sodium 10 mmol/L 10/05/19 10:16 Urine Total Protein 66 mg/dL (5-11.8) H 10/05/19 10:16 Coronavirus (PCR) Positive (Negative) A 10/01/19 Unknown Blood Type B POSITIVE 10/03/19 13:50 Antibody Screen Negative 10/03/19 13:50 Microbiology: Microbiology 10/01/19 05:38 Peripheral/Venous Blood Culture - Final NO GROWTH AFTER 5 DAYS - Diagnostic Impressions Diagnostic Impressions: Echocardiogram 10/02/19 19:48 Transthoracic Echocardiogram Indication: Elevated BNP BP: 78/37 HR: 75 Conclusions *Global left ventricular systolic function is normal. *The estimated ejection fraction is 50-55%. *The right ventricular global systolic function is normal. *There is mild to moderate tricuspid regurgitation. *The right ventricular systolic pressure is calculated at 75 mmHg. *There is no evidence of mitral regurgitation. *There is no evidence of aortic regurgitation. *There is trace pulmonic regurgitation. *There is no pericardial effusion. *There is evidence of severe pulmonary hypertension. Findings Left Ventricle: Global left ventricular wall motion and contractility are within normal limits. Global left ventricular systolic function is normal. The estimated ejection fraction is 50-55%. Abnormal left ventricular diastolic filling is observed, consistent with impaired relaxation. Left Atrium: The left atrial chamber size is normal. Right Ventricle: The right ventricular cavity size is normal. The right ventricular global systolic function is normal. Right Atrium: The right atrial cavity size is normal. Aortic Valve: The aortic valve leaflets are mildly thickened. There is no evidence of aortic regurgitation. Mitral Valve: The mitral valve leaflets are mildly thickened. There is no evidence of mitral regurgitation. Tricuspid Valve: The tricuspid valve leaflets are normal. There is mild to moderate tricuspid regurgitation. The right ventricular systolic pressure is calculated at 75 mmHg. There is evidence of severe pulmonary hypertension. Pulmonic Valve: The pulmonic valve appears normal. There is trace pulmonic regurgitation. Pericardium: There is no pericardial effusion. Aorta: The aorta appears normal. Venous: The inferior vena cava appears normal. Measurements Chambers 2D Name Value Normal Range IVSd (2D) 1.1 cm (0.6 - 1.1) LVPWd (2D) 1.03 cm (0.6 - 1.1) IVS:LVPW ratio (2D) 1.07 ratio - LVIDd (2D) 2.7 cm (3.7 - 5.6) LVIDs (2D) 2.02 cm (2 - 3.8) LV FS (Teichholz) (2D) 25.2 % - LV FS (cube) (2D) 25.2 % - EF Teichholz (2D) 51.5 % - Ao root diameter (2D) 2.4 cm (2 - 3.7) LA dimension (AP) 2D 2.9 cm (1.9 - 4) LA:Ao ratio (2D) 1.21 ratio - Volumes/Mass Name Value Normal Range LA ESV SP 4CH (MOD) 23 ml - LA ESV SP 2CH (MOD) 21 ml - LA ESV BP (MOD) 22 ml - LA ESV BP (MOD) index 13.6 ml/m2 - LV EDV SP 4CH (MOD) 54 ml - LV ESV SP 4CH (MOD) 20 ml - EF SP 4CH (MOD) 63 % - LV EDV SP 2CH (MOD) 48 ml - LV ESV SP 2CH (MOD) 20 ml - EF SP 2CH (MOD) 58 % - LV EDV BP 51 ml - LV ESV BP 20 ml - BP EF (MOD) 61 % - Diastolic/Systolic Function Name Value Normal Range MV E-wave Vmax 0.94 m/sec - MV deceleration time 218 msec - MV A-wave Vmax 1.06 m/sec - MV E:A ratio 0.9 ratio - LV septal e' Vmax 0.08 m/sec - LV lateral e' Vmax 0.08 m/sec - LV E:e' septal ratio 11.3 ratio - LV E:e' lateral ratio 11.4 ratio - Aortic Valve Name Value Normal Range AV VTI 29.3 cm - AV mean gradient 8 mmHg - LVOT diameter 2 cm - LVOT VTI 29.7 cm - LVOT mean gradient 6 mmHg - SV LVOT 93 ml - YASMEEN (continuity VTI) 3.18 cm2 - Tricuspid Valve Name Value Normal Range TR Vmax 4.25 m/sec - TR peak gradient 72 mmHg - RAP 3 mmHg - RVSP 75 mmHg - Pulmonic Valve/Qp:Qs Name Value Normal Range PV Vmax 1.11 m/sec - PV peak gradient 5 mmHg - WI end-diastolic Vmax 1.71 m/sec - PV acceleration time 77 msec - Alexis/IV: Voiding Method Indwelling Catheter IV Catheter Type [Left Upper PICC Line arm] IV Catheter Type [Left Forearm INT / Saline Lock ] IV Catheter Type [Right Hand] Peripheral IV IV Catheter Type [Left Foot] INT / Saline Lock IV Catheter Type [Right Peripheral IV Forearm] Active Medications - Current Medications Current Medications: Generic Name Dose Route Start Last Admin Trade Name Freq PRN Reason Stop Dose Admin Acetaminophen 650 mg 10/01/19 09:10 Tylenol PO Q6H PRN Pain MILD(1-3)/Fever >100.5/PALOMARES Albuterol 2.5 mg 10/01/19 09:10 Proventil IH Q3HRT PRN Shortness Of Breath Lipase/Protease/Amylase 1 each 10/02/19 11:[address] 10,500 Unit FEEDTUBE PRN PRN For Clogged Feeding Tube Apixaban 5 mg 10/05/19 11:00 10/06/19 21:12 Eliquis PO 5 mg Q12HR CLARKE Administration Ascorbic Acid 500 mg 10/01/19 16:00 10/06/19 21:12 Vitamin C PO 500 mg BID CLARKE Administration Dextrose 50 ml 10/01/19 09:10 D50w (25gm) Syringe IV Q30MIN PRN Hypoglycemia Protocol Famotidine 20 mg 10/04/19 10:00 10/06/19 10:33 Pepcid PO 20 mg DAILY CLARKE Administration Fentanyl 50 mcg 10/01/19 15:03 Sublimaze IV Q10MIN PRN ANALGESIA Hydralazine HCl 10 mg 10/01/19 09:20 10/04/19 10:00 Apresoline IV 10 mg Q4HR PRN Administration Hypertension Hydrophilic Ointment 1 applic 10/01/19 13:33 Vaseline Lip Therapy TP Q2HR PRN Dry Lips Hydrophilic Ointment 1 applic 10/04/19 14:47 Vaseline Lip Therapy TP Q2HR PRN Dry Lips Propofol 1,000 mg in 100 mls @ 1.905 mls/hr 10/01/19 14:00 10/07/19 02:29 Diprivan 10 Mg/Ml IV 50 mcg/kg/min TITR CLARKE 19.051 mls/hr Administration Protocol 5 MCG/KG/MIN Fentanyl Citrate 2,000 mcg in 100 mls @ 3.175 mls/hr 10/01/19 16:00 10/07/19 05:06 Fentanyl Drip Premix IV 4 mcg/kg/hr TITR CLARKE 12.701 mls/hr Administration Protocol 1 MCG/KG/HR Midazolam HCl 100 mg/ Sodium 100 mls @ 2 mls/hr 10/04/19 15:00 10/06/19 18:50 Chloride IV 5 mg/hr TITR CLARKE 5 mls/hr Administration Protocol 2 MG/HR Sodium Chloride 500 mls @ 10 mls/hr 10/04/19 16:00 Nacl 0.9% 500 Ml IV DIRECT CLARKE Norepinephrine 4 mg in 250 mls @ 37.5 mls/hr 10/04/19 18:00 10/07/19 08:49 Levophed Drip 4 Mg/Ns 250 Ml IV 4 mcg/min TITR CLARKE 15 mls/hr Titration Protocol 10 MCG/MIN Insulin Human Isoph/Insulin Regular 60 unit 10/07/19 10:00 Humulin 70/30 SUB-Q BIDDIAB CLARKE Insulin Human Lispro 0 unit 10/01/19 12:00 10/07/19 06:38 Humalog SUB-Q 3 unit Q6HR [facility] Administration Protocol Methylprednisolone Sodium Succinate 40 mg 10/03/19 14:00 10/07/19 05:00 Solu-Medrol IV 40 mg Q8HR CLARKE Administration Metoclopramide HCl 10 mg 10/01/19 09:10 Reglan IV Q6H PRN Nausea And Vomiting Midazolam HCl 2 mg 10/04/19 14:47 Versed IV Q10MIN PRN Sedation Multi-Ingred Cream/Lotion/Oil/Oint 1 applic 10/04/19 14:47 Artificial Tears Ophth Oint OU Q4HR PRN Dry Eye(s) Naloxone HCl 0.1 mg 10/01/19 09:10 Naloxone IV Q2MIN PRN Res Rate </= 8 or 02 SAT < 92% Simple Syrup 15 ml 10/02/19 11:44 Simple Syrup FEEDTUBE PRN PRN Hypoglycemia Simple Syrup 30 ml 10/02/19 11:44 Simple Syrup FEEDTUBE PRN PRN Hypoglycemia Sodium Bicarbonate 325 mg 10/02/19 11:44 Sodium Bicarbonate FEEDTUBE PRN PRN For Clogged Feeding Tube Sodium Chloride 10 ml 10/01/19 10:00 10/06/19 21:12 Sodium Chloride Flush Syringe 10 Ml IV 10 ml BID CLARKE Administration Sodium Chloride 10 ml 10/01/19 09:10 Sodium Chloride Flush Syringe 10 Ml IV PRN PRN LINE FLUSH Sodium Chloride 5 ml 10/04/19 14:47 Nacl 0.9% 500 Ml IV DIRECT PRN ARTERIAL CAMP DIRECTOR Zinc Sulfate 220 mg 10/01/19 16:00 10/06/19 21:12 Zinc Sulfate PO 220 mg BID CLARKE Administration Nutrition/Malnutrition Assess - Dietary Evaluation Nutrition/Malnutrition Findings: Nutrition Notes Start: 10/01/19 14:13 Freq: Status: Active Protocol: Document 10/04/19 12:42 LM (Rec: 10/04/19 12:56 LM [id number]) Nutrition Notes Need for Assessment generated from: MD Order Initial or Follow up Reassessment Current Diagnosis Acute Kidney Injury,Diabetes, Hypertension Other Pertinent Diagnosis COVID-19 (+) Current Diet Vital AF 1.2 at 45ml/hr Labs/Tests POC glu 265 7/8 BUN 64 Cr 2.1 Pertinent Medications Solumedrol Zinc Height 5 ft 1 in Weight 63.503 kg [place] Body Weight (kg) 47.72 BMI 26.4 Weight Status Overweight Subjective/Other Information MD consult to write/manage TF. Pt will be proned for 8-12 hr . Burn Absent Trauma Absent GI Symptoms None Current % PO Negligible Minimum of two criteria No physical signs of malnutrition #1 Nutrition Diagnosis Inadequate oral intake Diagnosis Progress(for reassessment Continues documentation) Is patient on ventilator? Yes Is Patient Ambulatory and/or Out of Bed No [facility] 1358.172 Calculation Used for Recommendations [facility] Additional Notes Protein needs are 76-127g (1.2 -2g/kg) Fluid needs are 1ml/kcal Nutrition Intervention Change Diet Order: TF Nutrition Support: Change to Nepro 1.8 at 30ml/hr Flush 130ml q4h When prone Nepro 1.8 at 20ml/ hr for 12 hr Flush 50ml q4h Nepro 1.8 at 40ml/hr for the remaining 12 hr when not prone Flush 90ml q4h Kcal 1,296 Protein (gm) 58 Fluid (mL) 523 Goal #1 Meet at least 75% of kcal and protein needs Anticipated Discharge Needs: Unable to determine at this time Follow-Up By: 10/08/19 Additional Comments F/U for TF change/tolerance
--- NOTE | 2019-10-07 11:20 | XRay Report ---
CHEST 1 VIEW INDICATION / CLINICAL INFORMATION: follow up respiratory failure. COMPARISON: 10/06/2019 FINDINGS: SUPPORT DEVICES: Stable, satisfactory device positioning. HEART / MEDIASTINUM: No significant abnormality. LUNGS / PLEURA: There has been significant improvement in the previously described diffuse bilateral pulmonary opacities. No significant pleural effusion. No pneumothorax. ADDITIONAL FINDINGS: No significant additional findings. IMPRESSION: 1. Significant improvement of diffuse bilateral pulmonary opacities. Signer Name: Mary Rodrigues MD Signed: 10/07/2019 11:15 AM Workstation Name: [id number]
[2019-10-07 11:47] LABS: Albumin 2.7 g/dL (3.9-5); Calcium 8.1 mg/dL (8.4-10.2)
[2019-10-07] MEDS: ZINC SULFATE 220 MG CAP PO SCH ×2 (11:50→21:33)
[2019-10-07] MEDS: FAMOTIDINE 20 MG TAB PO SCH (11:50)
[2019-10-07] MEDS: APIXABAN 5 MG TAB PO SCH ×2 (11:51→21:33)
[2019-10-07] MEDS: ASCORBIC ACID 500 MG TAB PO SCH ×2 (11:51→21:33)
[2019-10-07] MEDS: INSULIN NPH/REGULAR 70/30 INJ SUB-Q SCH (11:52)
[2019-10-07] MEDS: MIDAZOLAM 100 MG in SODIUM CHLORIDE 0.9% 80 ML IV SCH (13:51)
--- NOTE | 2019-10-07 15:25 | Operative Report ---
Operative Report Operative Report: EXAM: 1. Ultrasound-guided puncture of the left common femoral vein 2. Placement of a left common femoral vein nontunneled noncuffed hemodialysis catheter. DATE: 10/07/2019 INDICATION: Acute renal failure with COVID-19. MEDICATIONS: Local anesthetic (1% lidocaine). DEVICES: Triple lumen nontunneled noncuffed hemodialysis catheter SWITCH INSPECTOR: JADYN NOEL MD CONTRAST: None PROCEDURE: The risks, benefits, and alternatives were discussed and informed consent was obtained. The patient's left common femoral vein was assessed with ultrasound at bedside and determined to be patent prior to procedure. The patient was prepped and draped in a sterile fashion. The puncture site was anesthetized. Under sonographic guidance, the left common femoral vein was punctured with a 18-gauge micropuncture needle and a 0.035 inch wire was advanced through the needle. Over the 0.035 inch wire, dilatation was performed. The catheter was advanced over the wire. 3-0 nylon suture was used to secure the catheter. The catheter was charged with 1000 units/mL of heparin in the dialysis ports and saline in the central PICC line port. Biopatch and sterile dressing were applied. The patient tolerated the procedure well., No immediate postprocedural complications. FINDINGS: 1. Ultrasound documented patency of the left common femoral vein. The vessel was accessed under direct ultrasound guidance. IMPRESSION: 1. Successful ultrasound guided bedside placement of a left common femoral vein nontunneled noncuffed triple lumen hemodialysis catheter.
[2019-10-07] MEDS ORDERED: SODIUM CHLORIDE 0.9% 100 ML IV PRN (15:26)
[2019-10-07] MEDS ORDERED: HEPARIN 10,000 UNIT/1 ML VIAL IV PRN (15:26)
--- NOTE | 2019-10-07 15:34 | Progress Note ---
Assessment and Plan - Patient Problems (1) Acute kidney failure with tubular necrosis Current Visit: Yes Status: Acute Plan to address problem: Acute kidney injury acute tubular necrosis secondary to hypotension and COVID-19 disease. Kidney indices worsening but hemodynamic status is now improving. Will initiate intermittent dialysis. I discussed with drug and alcohol counsellor and also with interventional radiologist. (2) Hypernatremia Current Visit: Yes Status: Acute Plan to address problem: Secondary to replacement of hypotonic fluid losses with isotonic saline. Correct with dialysis (3) Acute respiratory failure with hypoxia Current Visit: Yes Status: Acute Plan to address problem: Continue management by drug and alcohol counsellor (4) Metabolic acidosis Current Visit: Yes Status: Acute Plan to address problem: Uremic acidosis. (5) Pneumonia due to severe acute respiratory syndrome coronavirus 2 (SARS-CoV-2) Current Visit: Yes Status: Acute Plan to address problem: Continue management by infectious disease and pulmonary/critical care consultants Subjective Date of service: 10/07/19 Principal diagnosis: Ac. hypoxemic resp failure; ARDS; COVID-19 virus infxn; PNA; Severe sepsis Interval history: Patient seen lying in bed in the ICU. Intubated on ventilator. Oxygenation improved significantly with pruning. Patient is back supine now and hemodynamic status has also improved. She is currently only on Levophed at 2 mcg per minute. I was called by drug and alcohol counsellor earlier today and we discussed patient's condition. Given improving hemodynamic status, will initiate intermittent hemodialysis. Objective - Exam Narrative Exam: Morbidly obese middle-aged -[place] female lying in bed in on the vent ilator. HEENT: NCAT, endotracheal tube intact Neck: Supple, no venous distention CVS: S1S2 RRR with no murmur, rub or gallop Chest: Coarse breath sounds Abdomen: Obese, soft, nontender, no organomegaly, bowel sounds are present Extremities: Mild edema Skin warm and dry Genitourinary deferred. Alexis draining clear urine Neuro: Awake, alert no focal deficits - Vital Signs Vital signs: Vital Signs - 12hr 10/07/19 10/07/19 10/07/19 03:30 03:34 03:46 Temperature Pulse Rate 76 71 69 Respiratory 20 30 H Rate Blood Pressure 130/75 145/71 133/77 O2 Sat by Pulse 100 100 100 Oximetry 10/07/19 10/07/19 10/07/19 03:57 04:00 04:16 Temperature 97.9 F Pulse Rate 86 76 77 Respiratory 30 H 30 H Rate Blood Pressure 79/44 82/45 O2 Sat by Pulse 100 100 Oximetry 10/07/19 10/07/19 10/07/19 04:30 04:46 05:00 Temperature Pulse Rate 76 77 76 Respiratory 30 H 30 H 30 H Rate Blood Pressure 85/50 89/50 88/52 O2 Sat by Pulse 100 100 100 Oximetry 10/07/19 10/07/19 10/07/19 05:16 05:30 05:46 Temperature Pulse Rate 63 63 67 Respiratory 30 H 30 H 30 H Rate Blood Pressure 169/89 160/84 153/85 O2 Sat by Pulse 100 100 100 Oximetry 10/07/19 10/07/19 10/07/19 06:00 06:15 06:30 Temperature Pulse Rate 66 68 67 Respiratory 30 H 30 H 30 H Rate Blood Pressure 145/83 144/83 142/79 O2 Sat by Pulse 100 100 100 Oximetry 10/07/19 10/07/19 10/07/19 06:46 07:00 07:16 Temperature Pulse Rate 68 69 67 Respiratory 30 H 30 H 30 H Rate Blood Pressure 136/77 135/76 137/79 O2 Sat by Pulse 100 100 100 Oximetry 10/07/19 10/07/19 10/07/19 07:30 07:46 08:00 Temperature 97.9 F Pulse Rate 68 69 70 Respiratory 30 H 30 H 30 H Rate Blood Pressure 136/81 147/83 144/81 O2 Sat by Pulse 100 100 100 Oximetry 10/07/19 10/07/19 10/07/19 08:16 08:30 08:46 Temperature Pulse Rate 69 68 67 Respiratory 30 H 30 H 30 H Rate Blood Pressure 144/80 140/80 128/72 O2 Sat by Pulse 100 100 100 Oximetry 10/07/19 10/07/19 10/07/19 09:00 09:16 09:30 Temperature Pulse Rate 70 61 Respiratory 30 H 27 H Rate Blood Pressure 104/60 104/60 118/76 O2 Sat by Pulse 100 100 100 Oximetry 10/07/19 10/07/19 10/07/19 09:46 10:00 10:16 Temperature Pulse Rate 65 64 64 Respiratory 30 H 30 H 30 H Rate Blood Pressure 107/63 117/67 118/69 O2 Sat by Pulse 100 100 100 Oximetry 10/07/19 10/07/19 10/07/19 10:30 10:46 11:00 Temperature Pulse Rate 63 67 68 Respiratory 30 H 30 H 20 Rate Blood Pressure 120/71 99/58 97/57 O2 Sat by Pulse 100 100 100 Oximetry 10/07/19 10/07/19 10/07/19 11:15 11:30 11:46 Temperature Pulse Rate 67 66 64 Respiratory 30 H 30 H 30 H Rate Blood Pressure 42/15 42/15 42/15 O2 Sat by Pulse 100 100 100 Oximetry 10/07/19 10/07/19 10/07/19 11:49 12:00 12:16 Temperature 98.0 F Pulse Rate 65 64 64 Respiratory 30 H 30 H Rate Blood Pressure 125/64 42/15 42/15 O2 Sat by Pulse 100 100 100 Oximetry 10/07/19 10/07/19 10/07/19 12:30 12:46 13:00 Temperature Pulse Rate 64 63 63 Respiratory 30 H 30 H 30 H Rate Blood Pressure 42/15 42/15 42/15 O2 Sat by Pulse 100 100 100 Oximetry 10/07/19 10/07/19 13:16 13:30 Temperature Pulse Rate 62 64 Respiratory 30 H 30 H Rate Blood Pressure 42/15 42/15 O2 Sat by Pulse 100 100 Oximetry - Lab 10/07/19 05:00 10/07/19 11:04 Most recent lab results ABG pH 7.314 pH Units (7.350-7.450) L 10/07/19 Unknown ABG pCO2 50.1 mm Hg 10/07/19 Unknown ABG pO2 281.9 mm Hg (80.0-90.0) H 10/07/19 Unknown ABG HCO3 24.9 mmol/L (20.0-26.0) 10/07/19 Unknown ABG O2 Saturation 99.4 % (95.0-99.0) H 10/07/19 Unknown Calcium 8.1 mg/dL (8.4-10.2) L 10/07/19 11:04 Phosphorus 4.70 mg/dL (2.5-4.5) H 10/01/19 12:45 Magnesium 2.50 mg/dL (1.7-2.3) H 10/01/19 12:45 Urine Creatinine 179.4 mg/dL (0.1-20.0) H 10/05/19 10:16 Urine Sodium 10 mmol/L 10/05/19 10:16 Urine Total Protein 66 mg/dL (5-11.8) H 10/05/19 10:16 Medications & Allergies - Medications Allergies/Adverse Reactions: Allergies No Known Allergies Allergy (Verified 10/01/19 06:31) Active Medications: Generic Name Dose Route Start Last Admin Trade Name Freq PRN Reason Stop Dose Admin Acetaminophen 650 mg 10/01/19 09:10 Tylenol PO Q6H PRN Pain MILD(1-3)/Fever >100.5/PALOMARES Albumin Human 25 gm 10/07/19 15:26 Alburx 25% (Albumin) IV KINJAL PRN Hypotension Albuterol 2.5 mg 10/01/19 09:10 Proventil IH Q3HRT PRN Shortness Of Breath Lipase/Protease/Amylase 1 each 10/02/19 11:44 Pancreaze 10,500 Unit FEEDTUBE PRN PRN For Clogged Feeding Tube Apixaban 5 mg 10/05/19 11:00 10/07/19 11:51 Eliquis PO 5 mg Q12HR [facility] Administration Ascorbic Acid 500 mg 10/01/19 16:00 10/07/19 11:51 Vitamin C PO 500 mg BID [facility] Administration Dextrose 50 ml 10/01/19 09:10 D50w (25gm) Syringe IV Q30MIN PRN Hypoglycemia Protocol Epoetin Mukesh 10,000 unit 10/07/19 15:26 Procrit IV KINJAL PRN hemodialysis Famotidine 20 mg 10/04/19 10:00 10/07/19 11:50 Pepcid PO 20 mg DAILY [facility] Administration Fentanyl 50 mcg 10/01/19 15:03 Sublimaze IV Q10MIN PRN ANALGESIA Heparin Sodium (Porcine) 5,000 unit 10/07/19 15:26 Heparin IV KINJAL PRN hemodialysis Hydralazine HCl 10 mg 10/01/19 09:20 10/04/19 10:00 Apresoline IV 10 mg Q4HR PRN Administration Hypertension Hydrophilic Ointment 1 applic 10/04/19 14:47 Vaseline Lip Therapy TP Q2HR PRN Dry Lips Propofol 1,000 mg in 100 mls @ 1.905 mls/hr 10/01/19 14:00 10/07/19 09:30 Diprivan 10 Mg/Ml IV 50 mcg/kg/min TITR CLARKE 19.051 mls/hr Administration Protocol 5 MCG/KG/MIN Fentanyl Citrate 2,000 mcg in 100 mls @ 3.175 mls/hr 10/01/19 16:00 10/07/19 13:51 Fentanyl Drip Premix IV 4 mcg/kg/hr TITR CLARKE 12.701 mls/hr Administration Protocol 1 MCG/KG/HR Midazolam HCl 100 mg/ Sodium 100 mls @ 2 mls/hr 10/04/19 15:00 10/07/19 13:51 Chloride IV 5 mg/hr TITR CLAR[facility] 5 mls/hr Administration Protocol 2 MG/HR Sodium Chloride 500 mls @ 10 mls/hr 10/04/19 16:00 Nacl 0.9% 500 Ml IV DIRECT [facility] Norepinephrine 4 mg in 250 mls @ 37.5 mls/hr 10/04/19 18:00 10/07/19 08:49 Levophed Drip 4 Mg/Ns 250 Ml IV 4 mcg/min TITR CLARKE 15 mls/hr Titration Protocol 10 MCG/MIN Sodium Chloride 100 mls @ 999 mls/hr 10/07/19 15:26 Nacl 0.9% IV KINJAL PRN Hypotension Insulin Human Isoph/Insulin Regular 60 unit 10/07/19 10:00 10/07/19 11:52 Humulin 70/30 SUB-Q 60 unit BIDDIAB [facility] Administration Insulin Human Lispro 0 unit 10/01/19 12:00 10/07/19 14:01 Humalog SUB-Q 4 unit Q6HR [facility] Administration Protocol Methylprednisolone Sodium Succinate 40 mg 10/03/19 14:00 10/07/19 13:57 Solu-Medrol IV 40 mg Q8HR [facility] Administration Metoclopramide HCl 10 mg 10/01/19 09:10 Reglan IV Q6H PRN Nausea And Vomiting Midazolam HCl 2 mg 10/04/19 14:47 Versed IV Q10MIN PRN Sedation Multi-Ingred Cream/Lotion/Oil/Oint 1 applic 10/04/19 14:47 Artificial Tears Ophth Oint OU Q4HR PRN Dry Eye(s) Naloxone HCl 0.1 mg 10/01/19 09:10 Naloxone IV Q2MIN PRN Res Rate </= 8 or 02 SAT < 92% Simple Syrup 15 ml 10/02/19 11:44 Simple Syrup FEEDTUBE PRN PRN Hypoglycemia Simple Syrup 30 ml 10/02/19 11:44 Simple Syrup FEEDTUBE PRN PRN Hypoglycemia Sodium Bicarbonate 325 mg 10/02/19 11:44 Sodium Bicarbonate FEEDTUBE PRN PRN For Clogged Feeding Tube Sodium Chloride 10 ml 10/01/19 10:00 10/07/19 11:52 Sodium Chloride Flush Syringe 10 Ml IV 10 ml BID [facility] Administration Sodium Chloride 10 ml 10/01/19 09:10 Sodium Chloride Flush Syringe 10 Ml IV PRN PRN LINE FLUSH Sodium Chloride 5 ml 10/04/19 14:47 Nacl 0.9% 500 Ml IV DIRECT PRN [employer] Zinc Sulfate 220 mg 10/01/19 16:00 10/07/19 11:50 Zinc Sulfate PO 220 mg BID [facility]AR[facility] Administration
[2019-10-07] MEDS: NORepinephrine/NS 4 MG-250 ML 4 MG/250 ML BAG IV SCH (19:28)
[2019-10-08] MEDS ORDERED: HEPARIN 10,000 UNIT/1 ML VIAL ONE (00:24)
[2019-10-08] MEDS ORDERED: SODIUM CHLORIDE 0.9% P/F 10 ML VIAL ONE (00:24)
[2019-10-08 00:56] LABS: Hematocrit 31.7 % (30.3-42.9); Hemoglobin 10.5 gm/dl (10.1-14.3); Mean Corpuscular HGB Conc 33 % (30-34); Mean Corpuscular Volume 92 fl (79-97); Red Blood Count 3.45 M/mm3 (3.65-5.03); Red Cell Distribution Width 15.8 % (13.2-15.2)
[2019-10-08] MEDS: INSULIN LISPRO 100 UNIT/ML SUB-Q SCH ×4 (01:17→17:54)
[2019-10-08 01:19] LABS: Platelet Count 67 K/mm3 (140-440)
[2019-10-08 03:35] LABS: Anisocytosis 1+; Basophils % (Manual) 0 % (0.0-1.8); Eosinophils % (Manual) 0 % (0.0-4.3); Monocytes % (Manual) 2.5 % (0.0-7.3); Total Cells Counted 200
[2019-10-08 03:36] LABS: Platelet Estimate Consistent w Auto
--- NOTE | 2019-10-08 03:37 | XRay Report ---
CHEST 1 VIEW 10/08/2019 3:10 AM INDICATION / CLINICAL INFORMATION: follow up respiratory failure. COMPARISON: Yesterday FINDINGS: SUPPORT DEVICES: None. HEART / MEDIASTINUM: No significant abnormality. LUNGS / PLEURA: Multifocal bilateral parenchymal disease, unchanged characteristic for bronchopneumon ia No pneumothorax. ADDITIONAL FINDINGS: No significant additional findings. IMPRESSION: 1. Bilateral bronchopneumonia Signer Name: Carlitos Asif MD Signed: 10/08/2019 3:33 AM Workstation Name: [id number]
[2019-10-08 04:35] LABS: ABG Base Excess -4.1 mmol/L (-2.0-3.0); ABG HCO3 22.3 mmol/L (20.0-26.0); ABG PCO2 45.4 mm Hg; ABG PH 7.309 pH Units (7.350-7.450)
[2019-10-08 04:39] LABS: ABG Methemoglobin TNR % (0.0-1.5); ABG Oxygen Saturation TNR % (95.0-99.0); ABG PO2 305.9 mm Hg (80.0-90.0)
[2019-10-08] MEDS: fentaNYL DRIP Premix 2,000 MCG/100 ML BAG IV SCH ×3 (05:40→20:56)
[2019-10-08] MEDS: methylPREDNISolone Sod Succinate 40 MG/1 ML INJ IV SCH ×4 (05:41→21:01)
[2019-10-08 06:36] LABS: Hematocrit 31.3 % (30.3-42.9); Hemoglobin 10.5 gm/dl (10.1-14.3); Mean Corpuscular HGB Conc 33 % (30-34); Mean Corpuscular Volume 90 fl (79-97); Red Blood Count 3.47 M/mm3 (3.65-5.03); Red Cell Distribution Width 15.7 % (13.2-15.2)
[2019-10-08 06:42] LABS: Platelet Count 67 K/mm3 (140-440)
[2019-10-08 07:00] LABS: Calcium 8.6 mg/dL (8.4-10.2)
[2019-10-08 08:17] LABS: Anisocytosis 1+; Basophils % (Manual) 0 % (0.0-1.8); Total Cells Counted 100
[2019-10-08 08:18] LABS: Large Platelets Few; Platelet Estimate Cons
--- NOTE | 2019-10-08 08:39 | Progress Note ---
Assessment and Plan Severe sepsis secondary to COVID COVID pneumonia with ARDS Acute hypoxemic respiratory failure, orally intubated [place] [facility] Multi-lobar pneumonia FANI Thrombocytopenia - PEEP at 20 monitor airway pressures closely - Wean supplemental oxygen for target O2 sats > 94% -Daily CXR and ABG daily. Will start weaning PEEP tomorrow -HD/UF today with intradialytic vasopressor support -CBC, BMP daily - Daily SAT's and SBT assessment - current ventilator demands precludes this - VAP bundle addressed - Lung protective strategies -Fluid conservative measures as tolerated by hemodynamics and renal function - Bronchodilators with pulmonary hygiene per RT - Accuchecks with glycemic control per SSI (While critically ill target blood glucose of 140-180 mg/dL; avoid hypoglycemia) - Avoid benzodiazepines, reduce the possibility of delirium - prn analgesia per CPOT score - Maintenance of sleep-wake cycle, avoid delirium -Avoid nephrotoxins, closely monitor renal function -Alexis catheter for accurate intake and output monitoring in this critically ill patient with COVID-ARDS, severe hypoxemia -Empiric antibiotics( Ceftriaxone and Azithromycin for CAP ) -Aspiration precautions, HOB >40 -Sedation Fentanyl, Propofol and midazolam titrate to RASS -2 to -4 - Stress ulcer prophylaxis ( Famotidine) - Mobility protocol, off loading and skin assessment for pressure ulcer prevention - Monitor hemodynamics closely -Supportive transfusions as indicated to keep HgB >7g/dL -Continue intrarterial line for frequent ABG and invasive hemodynamic monitoring -Early consideration for transfer for evaluation for ECMO if she does not impro ve or there is ongoing deterioration COVID SPECIFIC INTERVENTIONS -Needs aggressive management per ID/Pulmonary drive protocols -Airborne, contact isolation for COVID per facility protocols -Patient has renal impairment and is not a candidate for Remdesivir at this time -Consent and administration of convalescent plasma per facility protocol -Continue with steroids, solumedrol IV 40mg q8 -Continue with therapeutic anticoagulation. On Eliquis started, HIT panel results pending -Trend inflammatory markers per facility protocol -Continue all supportive care -Contact tracing and testing of her contacts Discussed with the ICU team-RTRN, Life threatening condition- Severe sepsis with COVID 19 ARDS acute hypoxemic respiratory failure on [facility] Mortality/Morbidity- High Complexity of medical decision making- High CONDITION: CRITICAL PROGNOSIS: GUARDED-GRAVE CODE STATUS: FULL CODE The high probability of a clinically significant, sudden or life-threatening deterioration of the [respiratory , cardiovascular, renal, neurology] system(s) required my full and direct attention, intervention and personal management. The aggregate critical care time was [45] minutes without overlap. Time includes spent on; [x] Data Review and interpretation [x] Patient assessment and monitoring of vital signs [x] Documentation [x] Medication orders and management Subjective Date of service: 10/08/19 Principal diagnosis: Ac. hypoxemic resp failure; ARDS; COVID-19 virus infxn; PNA; Severe sepsis Interval history: Patient is seen today for: Ac. hypoxemic resp failure; ARDS; COVID-19 virus infection; Bilateral pneumonia; Severe sepsis; FANI Seen and examined at bedside; 24hour events reviewed; nursing and respiratory care staff consulted; no adverse overnight events reported to me; resting in bed; maintaining oxygen saturations at 100%, placed back supine yesterday at noon, on norepinephrine at 2mcg with MAP >65. Apparently drops blood pressure whenever the norepinephrine is stopped. Femoral catheter placed yesterday, plan for UF/HD today. No fevers, on Fentanyl, Midazolam and propofol. Currently on AC-VC 450/30/PEEP 20/FIO2 90% ABG 7.309/45/305/22.3 Objective Vital Signs - 12hr 10/07/19 10/07/19 10/07/19 20:46 21:00 21:16 Temperature Pulse Rate 62 60 61 Pulse Rate [ From Monitor] Respiratory 30 H 30 H 30 H Rate Blood Pressure O2 Sat by Pulse 100 100 100 Oximetry 10/07/19 10/07/19 10/07/19 21:30 21:40 21:46 Temperature Pulse Rate 59 L 61 Pulse Rate [ 62 From Monitor] Respiratory 30 H 30 H 24 Rate Blood Pressure O2 Sat by Pulse 100 100 100 Oximetry 10/07/19 10/07/19 10/07/19 22:00 22:16 22:20 Temperature Pulse Rate 57 L 57 L 56 L Pulse Rate [ From Monitor] Respiratory 30 H 30 H 30 H Rate Blood Pressure O2 Sat by Pulse 100 100 100 Oximetry 10/07/19 10/07/19 10/07/19 22:30 22:46 23:00 Temperature Pulse Rate 56 L 56 L 57 L Pulse Rate [ From Monitor] Respiratory 30 H 30 H 30 H Rate Blood Pressure O2 Sat by Pulse 100 100 100 Oximetry 10/07/19 10/07/19 10/07/19 23:16 23:30 23:46 Temperature Pulse Rate 54 L 54 L 53 L Pulse Rate [ From Monitor] Respiratory 30 H 30 H 30 H Rate Blood Pressure O2 Sat by Pulse 100 100 100 Oximetry 10/08/19 10/08/19 10/08/19 00:00 00:15 00:30 Temperature 96.9 F L Pulse Rate 57 L 62 55 L Pulse Rate [ From Monitor] Respiratory 30 H 30 H 30 H Rate Blood Pressure 99/72 107/60 125/70 O2 Sat by Pulse 100 100 100 Oximetry 10/08/19 10/08/19 10/08/19 00:46 00:50 01:00 Temperature Pulse Rate 57 L 60 59 L Pulse Rate [ From Monitor] Respiratory 30 H 30 H Rate Blood Pressure 120/69 120/69 O2 Sat by Pulse 100 100 Oximetry 10/08/19 10/08/19 10/08/19 01:16 01:25 01:30 Temperature Pulse Rate 58 L 54 L Pulse Rate [ 60 From Monitor] Respiratory 30 H 30 H 30 H Rate Blood Pressure 120/69 120/69 O2 Sat by Pulse 100 100 100 Oximetry 10/08/19 10/08/19 10/08/19 01:46 02:00 02:16 Temperature Pulse Rate 53 L 54 L 53 L Pulse Rate [ From Monitor] Respiratory 30 H 30 H 30 H Rate Blood Pressure 120/69 120/69 127/74 O2 Sat by Pulse 100 100 100 Oximetry 10/08/19 10/08/19 10/08/19 02:30 02:46 03:00 Temperature Pulse Rate 53 L 57 L 54 L Pulse Rate [ From Monitor] Respiratory 30 H 30 H 30 H Rate Blood Pressure 136/78 109/61 122/71 O2 Sat by Pulse 100 100 100 Oximetry 10/08/19 10/08/19 10/08/19 03:16 03:30 03:46 Temperature Pulse Rate 55 L 54 L 52 L Pulse Rate [ From Monitor] Respiratory 30 H 30 H 30 H Rate Blood Pressure 127/70 125/70 131/73 O2 Sat by Pulse 100 100 100 Oximetry 10/08/19 10/08/19 10/08/19 04:00 04:09 04:16 Temperature 97.0 F L Pulse Rate 54 L 52 L 53 L Pulse Rate [ From Monitor] Respiratory 30 H 30 H Rate Blood Pressure 123/72 131/80 129/75 O2 Sat by Pulse 100 100 100 Oximetry 10/08/19 10/08/19 10/08/19 04:30 04:46 05:00 Temperature Pulse Rate 53 L 54 L 54 L Pulse Rate [ 55 L From Monitor] Respiratory 30 H 30 H 30 H Rate Blood Pressure 129/75 125/68 121/69 O2 Sat by Pulse 100 100 100 Oximetry 10/08/19 10/08/19 10/08/19 05:16 05:30 05:46 Temperature Pulse Rate 56 L 56 L 65 Pulse Rate [ From Monitor] Respiratory 30 H 30 H 26 H Rate Blood Pressure 120/68 116/64 116/64 O2 Sat by Pulse 100 100 100 Oximetry 10/08/19 10/08/19 10/08/19 06:00 06:16 06:30 Temperature Pulse Rate 58 L 57 L 56 L Pulse Rate [ From Monitor] Respiratory 30 H 30 H 30 H Rate Blood Pressure 116/64 116/64 114/69 O2 Sat by Pulse 98 99 100 Oximetry 10/08/19 10/08/19 10/08/19 06:46 07:00 07:16 Temperature Pulse Rate 56 L 58 L 57 L Pulse Rate [ From Monitor] Respiratory 30 H 30 H 30 H Rate Blood Pressure 116/64 112/65 109/67 O2 Sat by Pulse 100 100 100 Oximetry 10/08/19 10/08/19 10/08/19 07:30 07:46 07:51 Temperature 97.4 F L Pulse Rate 58 L 59 L Pulse Rate [ From Monitor] Respiratory 30 H 30 H Rate Blood Pressure 102/60 103/62 O2 Sat by Pulse 100 100 Oximetry 10/08/19 08:00 Temperature Pulse Rate 59 L Pulse Rate [ From Monitor] Respiratory 30 H Rate Blood Pressure 106/63 O2 Sat by Pulse 100 Oximetry Constitutional: appears uncomfortable, other (elderly looking AAF with mildly increased resp effort at rest on mvs, supine) Eyes: non-icteric ENT: other (ETT 24 cm GLYNN) Neck: supple, no lymphadenopathy, no JVD Effort: mildly labored Ascultation: Bilateral: diminished breath sounds, rales Percussion: Bilateral: not dull Cardiovascular: regular rate and rhythm, other (S1,S2, no murmurs) Gastrointestinal: normoactive bowel sounds, soft, non-tender, non-distended Integumentary: normal Extremities: no cyanosis, no edema, pulses normal, no ischemia or petechiae, other (Femoral HD catheter) Neurologic: other (unable to assess, sedated) Psychiatric: other (unable to assess, sedated) CBC and BMP: 10/08/19 05:45 10/08/19 05:45 ABG, PT/INR, D-dimer: ABG ABG pH 7.309 pH Units (7.350-7.450) L 10/08/19 04:20 ABG pCO2 45.4 mm Hg 10/08/19 04:20 ABG pO2 305.9 mm Hg (80.0-90.0) H 10/08/19 04:20 ABG O2 Saturation TNR 10/08/19 04:20 PT/INR, D-dimer PT 14.5 Sec. (12.2-14.9) 10/01/19 05:36 INR 1.15 (0.87-1.13) H 10/01/19 05:36 D-Dimer > 99671 ng/mlDDU (0-234) H 10/05/19 12:10 Abnormal lab findings: Abnormal Labs 10/01/19 10/01/19 10/01/19 05:36 05:36 05:36 WBC RBC RDW Plt Count [place] # Seg Neuts % (Manual) Lymphocytes % (Manual) Nucleated RBC % Seg Neutrophils # Seg Neutrophils # Man Lymphocytes # (Manual) Monocytes # (Manual) INR 1.15 H D-Dimer 1648.23 H ABG pH ABG pO2 ABG HCO3 ABG O2 Saturation ABG Base Excess ABG Hemoglobin Oxyhemoglobin Sodium Potassium Chloride Carbon Dioxide BUN Creatinine Glucose 424 H POC Glucose Lactic Acid Calcium Phosphorus Magnesium Ferritin 1745.0 H AST ALT Alkaline Phosphatase Lactate Dehydrogenase 822 H C-Reactive Protein 15.10 H NT-Pro-B Natriuret Pep Total Protein Albumin Triglycerides Urine WBC (Auto) Urine Creatinine Urine Total Protein Coronavirus (PCR) 10/01/19 10/01/19 10/01/19 05:36 05:36 06:31 WBC 12.8 H RBC RDW Plt Count [place] # Seg Neuts % (Manual) 93.0 H Lymphocytes % (Manual) 2.0 L Nucleated RBC % Seg Neutrophils # Seg Neutrophils # Man 11.9 H Lymphocytes # (Manual) 0.3 L Monocytes # (Manual) INR D-Dimer ABG pH ABG pO2 ABG HCO3 ABG O2 Saturation ABG Base Excess ABG Hemoglobin Oxyhemoglobin Sodium Potassium Chloride Carbon Dioxide 13 L BUN 34 H Creatinine 1.4 H Glucose 413 H POC Glucose Lactic Acid 7.20 H* Calcium Phosphorus Magnesium Ferritin AST 54 H ALT 64 H Alkaline Phosphatase Lactate Dehydrogenase C-Reactive Protein NT-Pro-B Natriuret Pep Total Protein Albumin 3.4 L Triglycerides Urine WBC (Auto) Urine Creatinine Urine Total Protein Coronavirus (PCR) 10/01/19 10/01/19 10/01/19 09:10 10:05 12:24 WBC RBC RDW Plt Count [place] # Seg Neuts % (Manual) Lymphocytes % (Manual) Nucleated RBC % Seg Neutrophils # Seg Neutrophils # Man Lymphocytes # (Manual) Monocytes # (Manual) INR D-Dimer 1957.06 H ABG pH ABG pO2 ABG HCO3 ABG O2 Saturation ABG Base Excess ABG Hemoglobin Oxyhemoglobin Sodium Potassium Chloride Carbon Dioxide BUN Creatinine Glucose POC Glucose 354 H Lactic Acid Calcium Phosphorus Magnesium Ferritin AST ALT Alkaline Phosphatase Lactate Dehydrogenase C-Reactive Protein NT-Pro-B Natriuret Pep Total Protein Albumin Triglycerides Urine WBC (Auto) Urine Creatinine 179.4 H Urine Total Protein Coronavirus (PCR) 10/01/19 10/01/19 10/01/19 12:24 12:24 12:45 WBC RBC RDW Plt Count [place] # Seg Neuts % (Manual) Lymphocytes % (Manual) Nucleated RBC % Seg Neutrophils # Seg Neutrophils # Man Lymphocytes # (Manual) Monocytes # (Manual) INR D-Dimer ABG pH ABG pO2 ABG HCO3 ABG O2 Saturation ABG Base Excess ABG Hemoglobin Oxyhemoglobin Sodium Potassium Chloride Carbon Dioxide BUN Creatinine Glucose 346 H POC Glucose Lactic Acid Calcium Phosphorus 4.70 H Magnesium 2.50 H Ferritin 1646.0 H AST ALT Alkaline Phosphatase Lactate Dehydrogenase 766 H C-Reactive Protein 18.60 H NT-Pro-B Natriuret Pep 1525 H Total Protein Albumin Triglycerides Urine WBC (Auto) Urine Creatinine Urine Total Protein Coronavirus (PCR) 10/01/19 10/01/19 10/01/19 14:30 17:20 18:15 WBC RBC RDW Plt Count [place] # Seg Neuts % (Manual) Lymphocytes % (Manual) Nucleated RBC % Seg Neutrophils # Seg Neutrophils # Man Lymphocytes # (Manual) Monocytes # (Manual) INR D-Dimer ABG pH 7.263 L 7.289 L ABG pO2 60.7 L 52.1 L ABG HCO3 ABG O2 Saturation 88.2 L 83.2 L ABG Base Excess -6.4 L -4.8 L ABG Hemoglobin 10.5 L Oxyhemoglobin 86.6 L 81.4 L Sodium Potassium Chloride Carbon Dioxide BUN Creatinine Glucose POC Glucose 299 H Lactic Acid Calcium Phosphorus Magnesium Ferritin AST ALT Alkaline Phosphatase Lactate Dehydrogenase C-Reactive Protein NT-Pro-B Natriuret Pep Total Protein Albumin Triglycerides Urine WBC (Auto) Urine Creatinine Urine Total Protein Coronavirus (PCR) 10/01/19 10/01/19 10/01/19 21:08 21:35 Unknown WBC RBC RDW Plt Count [place] # Seg Neuts % (Manual) Lymphocytes % (Manual) Nucleated RBC % Seg Neutrophils # Seg Neutrophils # Man Lymphocytes # (Manual) Monocytes # (Manual) INR D-Dimer ABG pH 7.327 L ABG pO2 75.1 L ABG HCO3 ABG O2 Saturation 94.5 L ABG Base Excess -4.4 L ABG Hemoglobin Oxyhemoglobin 92.8 L Sodium Potassium Chloride Carbon Dioxide BUN Creatinine Glucose POC Glucose 266 H Lactic Acid Calcium Phosphorus Magnesium Ferritin AST ALT Alkaline Phosphatase Lactate Dehydrogenase C-Reactive Protein NT-Pro-B Natriuret Pep Total Protein Albumin Triglycerides Urine WBC (Auto) Urine Creatinine Urine Total Protein Coronavirus (PCR) Positive A 10/02/19 10/02/19 10/02/19 01:23 03:55 05:18 WBC 17.8 H RBC RDW Plt Count [place] # Seg Neuts % (Manual) 93.0 H Lymphocytes % (Manual) 5.0 L Nucleated RBC % 1.0 H Seg Neutrophils # Seg Neutrophils # Man 16.6 H Lymphocytes # (Manual) 0.9 L Monocytes # (Manual) INR D-Dimer ABG pH 7.308 L ABG pO2 129.3 H ABG HCO3 ABG O2 Saturation ABG Base Excess -4.9 L ABG Hemoglobin 16.1 H Oxyhemoglobin Sodium Potassium Chloride Carbon Dioxide BUN Creatinine Glucose POC Glucose 291 H Lactic Acid Calcium Phosphorus Magnesium Ferritin AST ALT Alkaline Phosphatase Lactate Dehydrogenase C-Reactive Protein NT-Pro-B Natriuret Pep Total Protein Albumin Triglycerides Urine WBC (Auto) Urine Creatinine Urine Total Protein Coronavirus (PCR) 10/02/19 10/02/19 10/02/19 05:18 07:15 15:28 WBC RBC RDW Plt Count [place] # Seg Neuts % (Manual) Lymphocytes % (Manual) Nucleated RBC % Seg Neutrophils # Seg Neutrophils # Man Lymphocytes # (Manual) Monocytes # (Manual) INR D-Dimer ABG pH ABG pO2 ABG HCO3 ABG O2 Saturation ABG Base Excess ABG Hemoglobin Oxyhemoglobin Sodium Potassium Chloride 111.1 H Carbon Dioxide 19 L BUN 44 H Creatinine 2.4 H D Glucose 227 H POC Glucose 196 H Lactic Acid Calcium Phosphorus Magnesium Ferritin AST ALT Alkaline Phosphatase Lactate Dehydrogenase C-Reactive Protein NT-Pro-B Natriuret Pep Total Protein Albumin Triglycerides Urine WBC (Auto) Urine Creatinine 336.4 H Urine Total Protein Coronavirus (PCR) 10/02/19 10/03/19 10/03/19 17:57 00:32 04:02 WBC 17.2 H RBC RDW Plt Count [place] # Seg Neuts % (Manual) 95.0 H Lymphocytes % (Manual) 3.0 L Nucleated RBC % 2.0 H Seg Neutrophils # Seg Neutrophils # Man 16.3 H Lymphocytes # (Manual) 0.5 L Monocytes # (Manual) INR D-Dimer ABG pH ABG pO2 ABG HCO3 ABG O2 Saturation ABG Base Excess ABG Hemoglobin Oxyhemoglobin Sodium Potassium Chloride Carbon Dioxide BUN Creatinine Glucose POC Glucose 137 H 184 H Lactic Acid Calcium Phosphorus Magnesium Ferritin AST ALT Alkaline Phosphatase Lactate Dehydrogenase C-Reactive Protein NT-Pro-B Natriuret Pep Total Protein Albumin Triglycerides Urine WBC (Auto) Urine Creatinine Urine Total Protein Coronavirus (PCR) 10/03/19 10/03/19 10/03/19 04:02 04:26 05:20 WBC RBC RDW Plt Count [place] # Seg Neuts % (Manual) Lymphocytes % (Manual) Nucleated RBC % Seg Neutrophils # Seg Neutrophils # Man Lymphocytes # (Manual) Monocytes # (Manual) INR D-Dimer ABG pH 7.336 L ABG pO2 70.1 L ABG HCO3 ABG O2 Saturation 94.0 L ABG Base Excess -3.8 L ABG Hemoglobin Oxyhemoglobin 92.4 L Sodium Potassium Chloride 108.9 H Carbon Dioxide 19 L BUN 64 H Creatinine 2.1 H Glucose 212 H POC Glucose 197 H Lactic Acid Calcium Phosphorus Magnesium Ferritin AST ALT Alkaline Phosphatase Lactate Dehydrogenase C-Reactive Protein NT-Pro-B Natriuret Pep Total Protein Albumin Triglycerides Urine WBC (Auto) Urine Creatinine Urine Total Protein Coronavirus (PCR) 07/11/1410/03/19 10/03/19 11:22 11:58 18:44 WBC RBC RDW Plt Count [place] # Seg Neuts % (Manual) Lymphocytes % (Manual) Nucleated RBC % Seg Neutrophils # Seg Neutrophils # Man Lymphocytes # (Manual) Monocytes # (Manual) INR D-Dimer ABG pH ABG pO2 ABG HCO3 ABG O2 Saturation ABG Base Excess ABG Hemoglobin Oxyhemoglobin Sodium Potassium Chloride Carbon Dioxide BUN Creatinine Glucose POC Glucose 248 H 245 H 324 H Lactic Acid Calcium Phosphorus Magnesium Ferritin AST ALT Alkaline Phosphatase Lactate Dehydrogenase C-Reactive Protein NT-Pro-B Natriuret Pep Total Protein Albumin Triglycerides Urine WBC (Auto) Urine Creatinine Urine Total Protein Coronavirus (PCR) 10/03/19 10/04/19 10/04/19 23:51 03:50 05:35 WBC RBC RDW Plt Count [place] # Seg Neuts % (Manual) Lymphocytes % (Manual) Nucleated RBC % Seg Neutrophils # Seg Neutrophils # Man Lymphocytes # (Manual) Monocytes # (Manual) INR D-Dimer ABG pH ABG pO2 129.4 H ABG HCO3 ABG O2 Saturation ABG Base Excess -3.5 L ABG Hemoglobin Oxyhemoglobin Sodium Potassium Chloride Carbon Dioxide BUN Creatinine Glucose POC Glucose 182 H 177 H Lactic Acid Calcium Phosphorus Magnesium Ferritin AST ALT Alkaline Phosphatase Lactate Dehydrogenase C-Reactive Protein NT-Pro-B Natriuret Pep Total Protein Albumin Triglycerides Urine WBC (Auto) Urine Creatinine Urine Total Protein Coronavirus (PCR) 10/04/19 10/04/19 10/04/19 11:39 16:30 16:30 WBC 21.2 H RBC RDW 16.0 H Plt Count 93 L [place] # Seg Neuts % (Manual) 92.0 H Lymphocytes % (Manual) 3.0 L Nucleated RBC % 4.0 H Seg Neutrophils # Seg Neutrophils # Man 19.5 H Lymphocytes # (Manual) 0.6 L Monocytes # (Manual) 1.1 H INR D-Dimer ABG pH ABG pO2 ABG HCO3 ABG O2 Saturation ABG Base Excess ABG Hemoglobin Oxyhemoglobin Sodium Potassium Chloride 109.0 H Carbon Dioxide 21 L BUN 94 H Creatinine 2.3 H Glucose 345 H POC Glucose 265 H Lactic Acid Calcium Phosphorus Magnesium Ferritin AST ALT Alkaline Phosphatase Lactate Dehydrogenase C-Reactive Protein NT-Pro-B Natriuret Pep Total Protein Albumin Triglycerides Urine WBC (Auto) Urine Creatinine Urine Total Protein Coronavirus (PCR) 10/04/19 10/04/19 10/04/19 18:04 18:50 23:19 WBC RBC RDW Plt Count [place] # Seg Neuts % (Manual) Lymphocytes % (Manual) Nucleated RBC % Seg Neutrophils # Seg Neutrophils # Man Lymphocytes # (Manual) Monocytes # (Manual) INR D-Dimer ABG pH 7.322 L ABG pO2 183.3 H ABG HCO3 18.1 L ABG O2 Saturation 99.1 H ABG Base Excess -7.2 L ABG Hemoglobin 11.8 L Oxyhemoglobin Sodium Potassium Chloride Carbon Dioxide BUN Creatinine Glucose POC Glucose 333 H 366 H Lactic Acid Calcium Phosphorus Magnesium Ferritin AST ALT Alkaline Phosphatase Lactate Dehydrogenase C-Reactive Protein NT-Pro-B Natriuret Pep Total Protein Albumin Triglycerides Urine WBC (Auto) Urine Creatinine Urine Total Protein Coronavirus (PCR) 10/05/19 10/05/19 10/05/19 04:00 05:05 06:00 WBC RBC RDW Plt Count [place] # Seg Neuts % (Manual) Lymphocytes % (Manual) Nucleated RBC % Seg Neutrophils # Seg Neutrophils # Man Lymphocytes # (Manual) Monocytes # (Manual) INR D-Dimer ABG pH 7.223 L ABG pO2 93.7 H ABG HCO3 19.4 L ABG O2 Saturation ABG Base Excess -8.3 L ABG Hemoglobin Oxyhemoglobin Sodium Potassium Chloride Carbon Dioxide BUN Creatinine Glucose POC Glucose 362 H Lactic Acid Calcium Phosphorus Magnesium Ferritin AST ALT Alkaline Phosphatase Lactate Dehydrogenase C-Reactive Protein NT-Pro-B Natriuret Pep Total Protein Albumin Triglycerides 518 H Urine WBC (Auto) Urine Creatinine Urine Total Protein Coronavirus (PCR) 10/05/19 10/05/19 10/05/19 06:00 06:00 10:16 WBC 18.6 H RBC RDW 16.6 H Plt Count 78 L [place] # Seg Neuts % (Manual) 95.0 H Lymphocytes % (Manual) 0 L Nucleated RBC % 4.0 H Seg Neutrophils # Seg Neutrophils # Man 17.7 H Lymphocytes # (Manual) 0.0 L Monocytes # (Manual) INR D-Dimer ABG pH ABG pO2 ABG HCO3 ABG O2 Saturation ABG Base Excess ABG Hemoglobin Oxyhemoglobin Sodium Potassium 5.2 H Chloride 110.9 H Carbon Dioxide 17 L BUN 101 H Creatinine 3.2 H Glucose 368 H POC Glucose Lactic Acid Calcium Phosphorus Magnesium Ferritin AST ALT Alkaline Phosphatase Lactate Dehydrogenase C-Reactive Protein NT-Pro-B Natriuret Pep Total Protein Albumin Triglycerides Urine WBC (Auto) Urine Creatinine 179.4 H Urine Total Protein 66 H Coronavirus (PCR) 10/05/19 10/05/19 10/05/19 10:17 11:43 12:10 WBC RBC RDW Plt Count [place] # Seg Neuts % (Manual) Lymphocytes % (Manual) Nucleated RBC % Seg Neutrophils # Seg Neutrophils # Man Lymphocytes # (Manual) Monocytes # (Manual) INR D-Dimer > 89215 H ABG pH ABG pO2 ABG HCO3 ABG O2 Saturation ABG Base Excess ABG Hemoglobin Oxyhemoglobin Sodium Potassium Chloride Carbon Dioxide BUN Creatinine Glucose POC Glucose 328 H Lactic Acid Calcium Phosphorus Magnesium Ferritin AST ALT Alkaline Phosphatase Lactate Dehydrogenase C-Reactive Protein NT-Pro-B Natriuret Pep Total Protein Albumin Triglycerides Urine WBC (Auto) 25.0 H Urine Creatinine Urine Total Protein Coronavirus (PCR) 10/05/19 10/05/19 10/06/19 17:35 17:57 00:46 WBC RBC RDW Plt Count [place] # Seg Neuts % (Manual) Lymphocytes % (Manual) Nucleated RBC % Seg Neutrophils # Seg Neutrophils # Man Lymphocytes # (Manual) Monocytes # (Manual) INR D-Dimer ABG pH ABG pO2 ABG HCO3 ABG O2 Saturation ABG Base Excess -3.8 L ABG Hemoglobin Oxyhemoglobin Sodium Potassium Chloride Carbon Dioxide BUN Creatinine Glucose POC Glucose 292 H 295 H Lactic Acid Calcium Phosphorus Magnesium Ferritin AST ALT Alkaline Phosphatase Lactate Dehydrogenase C-Reactive Protein NT-Pro-B Natriuret Pep Total Protein Albumin Triglycerides Urine WBC (Auto) Urine Creatinine Urine Total Protein Coronavirus (PCR) 10/06/19 10/06/19 10/06/19 03:32 06:07 06:07 WBC 20.5 H RBC RDW 15.6 H Plt Count 79 L [place] # 0.9 H Seg Neuts % (Manual) 91.0 H Lymphocytes % (Manual) 0 L Nucleated RBC % 2.0 H Seg Neutrophils # 18.4 H Seg Neutrophils # Man 18.7 H Lymphocytes # (Manual) 0.0 L Monocytes # (Manual) INR D-Dimer ABG pH 7.339 L ABG pO2 ABG HCO3 ABG O2 Saturation ABG Base Excess -2.4 L ABG Hemoglobin 11.5 L Oxyhemoglobin 94.5 L Sodium 147 H Potassium Chloride 108.6 H Carbon Dioxide BUN 102 H Creatinine 3.2 H Glucose 305 H POC Glucose Lactic Acid Calcium 7.8 L Phosphorus Magnesium Ferritin AST ALT Alkaline Phosphatase Lactate Dehydrogenase C-Reactive Protein NT-Pro-B Natriuret Pep Total Protein Albumin Triglycerides Urine WBC (Auto) Urine Creatinine Urine Total Protein Coronavirus (PCR) 10/06/19 10/06/19 10/06/19 06:07 06:33 10:25 WBC RBC RDW Plt Count [place] # Seg Neuts % (Manual) Lymphocytes % (Manual) Nucleated RBC % Seg Neutrophils # Seg Neutrophils # Man Lymphocytes # (Manual) Monocytes # (Manual) INR D-Dimer ABG pH ABG pO2 ABG HCO3 ABG O2 Saturation ABG Base Excess ABG Hemoglobin Oxyhemoglobin Sodium Potassium Chloride Carbon Dioxide BUN Creatinine Glucose POC Glucose 310 H 304 H Lactic Acid Calcium Phosphorus Magnesium Ferritin AST ALT Alkaline Phosphatase Lactate Dehydrogenase C-Reactive Protein NT-Pro-B Natriuret Pep Total Protein Albumin Triglycerides 467 H Urine WBC (Auto) Urine Creatinine Urine Total Protein Coronavirus (PCR) 10/06/19 10/06/19 10/06/19 16:20 16:51 Unknown WBC RBC RDW Plt Count [place] # Seg Neuts % (Manual) Lymphocytes % (Manual) Nucleated RBC % Seg Neutrophils # Seg Neutrophils # Man Lymphocytes # (Manual) Monocytes # (Manual) INR D-Dimer ABG pH 7.241 L 7.295 L ABG pO2 49.7 L 48.4 L ABG HCO3 ABG O2 Saturation 79.5 L 81.0 L ABG Base Excess -2.8 L -2.7 L ABG Hemoglobin 11.9 L Oxyhemoglobin 77.4 L 79.2 L Sodium Potassium Chloride Carbon Dioxide BUN Creatinine Glucose POC Glucose 346 H Lactic Acid Calcium Phosphorus Magnesium Ferritin AST ALT Alkaline Phosphatase Lactate Dehydrogenase C-Reactive Protein NT-Pro-B Natriuret Pep Total Protein Albumin Triglycerides Urine WBC (Auto) Urine Creatinine Urine Total Protein Coronavirus (PCR) 10/07/19 10/07/19 10/07/19 00:10 05:00 05:00 WBC 21.1 H RBC RDW 15.3 H Plt Count 63 L [place] # Seg Neuts % (Manual) 93.0 H Lymphocytes % (Manual) 1.0 L Nucleated RBC % 10.0 H Seg Neutrophils # Seg Neutrophils # Man 19.6 H Lymphocytes # (Manual) 0.2 L Monocytes # (Manual) INR D-Dimer ABG pH ABG pO2 ABG HCO3 ABG O2 Saturation ABG Base Excess ABG Hemoglobin Oxyhemoglobin Sodium 148 H Potassium Chloride Carbon Dioxide BUN 130 H Creatinine 4.2 H Glucose 228 H POC Glucose 227 H Lactic Acid Calcium 8.1 L Phosphorus Magnesium Ferritin AST ALT Alkaline Phosphatase Lactate Dehydrogenase C-Reactive Protein NT-Pro-B Natriuret Pep Total Protein Albumin Triglycerides Urine WBC (Auto) Urine Creatinine Urine Total Protein Coronavirus (PCR) 10/07/19 10/07/19 10/07/19 06:18 08:55 11:04 WBC RBC RDW Plt Count [place] # Seg Neuts % (Manual) Lymphocytes % (Manual) Nucleated RBC % Seg Neutrophils # Seg Neutrophils # Man Lymphocytes # (Manual) Monocytes # (Manual) INR D-Dimer ABG pH 7.342 L ABG pO2 170.9 H ABG HCO3 ABG O2 Saturation ABG Base Excess -2.9 L ABG Hemoglobin 10.7 L Oxyhemoglobin Sodium 149 H Potassium Chloride 107.7 H Carbon Dioxide BUN 130 H Creatinine 3.8 H Glucose 220 H POC Glucose 223 H Lactic Acid Calcium 8.1 L Phosphorus Magnesium Ferritin AST 136 H ALT 109 H Alkaline Phosphatase 263 H Lactate Dehydrogenase C-Reactive Protein NT-Pro-B Natriuret Pep Total Protein 4.8 L Albumin 2.7 L Triglycerides Urine WBC (Auto) Urine Creatinine Urine Total Protein Coronavirus (PCR) 10/07/19 10/07/19 10/07/19 11:56 19:33 Unknown WBC RBC RDW Plt Count [place] # Seg Neuts % (Manual) Lymphocytes % (Manual) Nucleated RBC % Seg Neutrophils # Seg Neutrophils # Man Lymphocytes # (Manual) Monocytes # (Manual) INR D-Dimer ABG pH 7.314 L ABG pO2 281.9 H ABG HCO3 ABG O2 Saturation 99.4 H ABG Base Excess ABG Hemoglobin 10.7 L Oxyhemoglobin Sodium Potassium Chloride Carbon Dioxide BUN Creatinine Glucose POC Glucose 225 H 198 H Lactic Acid Calcium Phosphorus Magnesium Ferritin AST ALT Alkaline Phosphatase Lactate Dehydrogenase C-Reactive Protein NT-Pro-B Natriuret Pep Total Protein Albumin Triglycerides Urine WBC (Auto) Urine Creatinine Urine Total Protein Coronavirus (PCR) 10/08/19 10/08/19 10/08/19 00:30 01:16 04:20 WBC 23.4 H RBC 3.45 L RDW 15.8 H Plt Count 67 L [place] # Seg Neuts % (Manual) 96.0 H Lymphocytes % (Manual) 1.5 L Nucleated RBC % 3.0 H Seg Neutrophils # Seg Neutrophils # Man 22.5 H Lymphocytes # (Manual) 0.4 L Monocytes # (Manual) INR D-Dimer ABG pH 7.309 L ABG pO2 305.9 H ABG HCO3 ABG O2 Saturation ABG Base Excess -4.1 L ABG Hemoglobin Oxyhemoglobin Sodium Potassium Chloride Carbon Dioxide BUN Creatinine Glucose POC Glucose 212 H Lactic Acid Calcium Phosphorus Magnesium Ferritin AST ALT Alkaline Phosphatase Lactate Dehydrogenase C-Reactive Protein NT-Pro-B Natriuret Pep Total Protein Albumin Triglycerides Urine WBC (Auto) Urine Creatinine Urine Total Protein Coronavirus (PCR) 10/08/19 10/08/19 10/08/19 05:45 05:45 05:45 WBC 24.2 H RBC 3.47 L RDW 15.7 H Plt Count 67 L [place] # Seg Neuts % (Manual) 97.0 H Lymphocytes % (Manual) 0 L Nucleated RBC % 6.0 H Seg Neutrophils # Seg Neutrophils # Man 23.5 H Lymphocytes # (Manual) 0.0 L Monocytes # (Manual) INR D-Dimer ABG pH ABG pO2 ABG HCO3 ABG O2 Saturation ABG Base Excess ABG Hemoglobin Oxyhemoglobin Sodium 148 H Potassium Chloride Carbon Dioxide BUN 137 H Creatinine 3.5 H Glucose 183 H POC Glucose Lactic Acid Calcium Phosphorus Magnesium Ferritin AST ALT Alkaline Phosphatase Lactate Dehydrogenase C-Reactive Protein NT-Pro-B Natriuret Pep Total Protein Albumin Triglycerides 428 H Urine WBC (Auto) Urine Creatinine Urine Total Protein Coronavirus (PCR) 10/08/19 06:06 WBC RBC RDW Plt Count [place] # Seg Neuts % (Manual) Lymphocytes % (Manual) Nucleated RBC % Seg Neutrophils # Seg Neutrophils # Man Lymphocytes # (Manual) Monocytes # (Manual) INR D-Dimer ABG pH ABG pO2 ABG HCO3 ABG O2 Saturation ABG Base Excess ABG Hemoglobin Oxyhemoglobin Sodium Potassium Chloride Carbon Dioxide BUN Creatinine Glucose POC Glucose 192 H Lactic Acid Calcium Phosphorus Magnesium Ferritin AST ALT Alkaline Phosphatase Lactate Dehydrogenase C-Reactive Protein NT-Pro-B Natriuret Pep Total Protein Albumin Triglycerides Urine WBC (Auto) Urine Creatinine Urine Total Protein Coronavirus (PCR) Chest x-ray: image reviewed (Bilateral alveolar infiltrates improving) Allied health notes reviewed: RT
--- NOTE | 2019-10-08 08:44 | Progress Note ---
Assessment and Plan - Patient Problems (1) Acute kidney failure with tubular necrosis Current Visit: Yes Status: Acute Plan to address problem: Will plan for HD session today. Orders placed. Daily assessment for isolated UF treatments. (2) Acute respiratory failure with hypoxia Current Visit: Yes Status: Acute Plan to address problem: Vent management per pulmonary team. (3) Hypernatremia Current Visit: Yes Status: Acute Plan to address problem: Will managed with HD. (4) Metabolic acidosis Current Visit: Yes Status: Acute Plan to address problem: Will manage with HD. Monitor closely. (5) Pneumonia due to severe acute respiratory syndrome coronavirus 2 (SARS-CoV-2) Current Visit: Yes Status: Acute Plan to address problem: Management per infectious disease team and pulmonology. Subjective Date of service: 10/08/19 Principal diagnosis: Ac. hypoxemic resp failure; ARDS; COVID-19 virus infxn; PNA; Severe sepsis Interval history: Nop acute changes. She is supine this am. Vent settings stable, with FiO2 70 %. Remains on levophed at 2mcg/kg/min. Had left femoral vascath placed yesterday by IR. Will have patient undergo HD today per orders from yesterday. Objective - Vital Signs Vital signs: Vital Signs - 12hr 10/07/19 10/07/19 10/07/19 20:46 21:00 21:16 Temperature Pulse Rate 62 60 61 Pulse Rate [ From Monitor] Respiratory 30 H 30 H 30 H Rate Blood Pressure O2 Sat by Pulse 100 100 100 Oximetry 10/07/19 10/07/19 10/07/19 21:30 21:40 21:46 Temperature Pulse Rate 59 L 61 Pulse Rate [ 62 From Monitor] Respiratory 30 H 30 H 24 Rate Blood Pressure O2 Sat by Pulse 100 100 100 Oximetry 10/07/19 10/07/19 10/07/19 22:00 22:16 22:20 Temperature Pulse Rate 57 L 57 L 56 L Pulse Rate [ From Monitor] Respiratory 30 H 30 H 30 H Rate Blood Pressure O2 Sat by Pulse 100 100 100 Oximetry 10/07/19 10/07/19 10/07/19 22:30 22:46 23:00 Temperature Pulse Rate 56 L 56 L 57 L Pulse Rate [ From Monitor] Respiratory 30 H 30 H 30 H Rate Blood Pressure O2 Sat by Pulse 100 100 100 Oximetry 10/07/19 10/07/1920 23:16 23:30 23:46 Temperature Pulse Rate 54 L 54 L 53 L Pulse Rate [ From Monitor] Respiratory 30 H 30 H 30 H Rate Blood Pressure O2 Sat by Pulse 100 100 100 Oximetry 10/08/19 10/08/19 10/08/19 00:00 00:15 00:30 Temperature 96.9 F L Pulse Rate 57 L 62 55 L Pulse Rate [ From Monitor] Respiratory 30 H 30 H 30 H Rate Blood Pressure 99/72 107/60 125/70 O2 Sat by Pulse 100 100 100 Oximetry 10/08/19 10/08/19 10/08/19 00:46 00:50 01:00 Temperature Pulse Rate 57 L 60 59 L Pulse Rate [ From Monitor] Respiratory 30 H 30 H Rate Blood Pressure 120/69 120/69 O2 Sat by Pulse 100 100 Oximetry 10/08/19 10/08/19 10/08/19 01:16 01:25 01:30 Temperature Pulse Rate 58 L 54 L Pulse Rate [ 60 From Monitor] Respiratory 30 H 30 H 30 H Rate Blood Pressure 120/69 120/69 O2 Sat by Pulse 100 100 100 Oximetry 10/08/19 10/08/19 10/08/19 01:46 02:00 02:16 Temperature Pulse Rate 53 L 54 L 53 L Pulse Rate [ From Monitor] Respiratory 30 H 30 H 30 H Rate Blood Pressure 120/69 120/69 127/74 O2 Sat by Pulse 100 100 100 Oximetry 10/08/19 10/08/19 10/08/19 02:30 02:46 03:00 Temperature Pulse Rate 53 L 57 L 54 L Pulse Rate [ From Monitor] Respiratory 30 H 30 H 30 H Rate Blood Pressure 136/78 109/61 122/71 O2 Sat by Pulse 100 100 100 Oximetry 10/08/19 10/08/19 10/08/19 03:16 03:30 03:46 Temperature Pulse Rate 55 L 54 L 52 L Pulse Rate [ From Monitor] Respiratory 30 H 30 H 30 H Rate Blood Pressure 127/70 125/70 131/73 O2 Sat by Pulse 100 100 100 Oximetry 10/08/19 10/08/19 10/08/19 04:00 04:09 04:16 Temperature 97.0 F L Pulse Rate 54 L 52 L 53 L Pulse Rate [ From Monitor] Respiratory 30 H 30 H Rate Blood Pressure 123/72 131/80 129/75 O2 Sat by Pulse 100 100 100 Oximetry 10/08/19 10/08/19 10/08/19 04:30 04:46 05:00 Temperature Pulse Rate 53 L 54 L 54 L Pulse Rate [ 55 L From Monitor] Respiratory 30 H 30 H 30 H Rate Blood Pressure 129/75 125/68 121/69 O2 Sat by Pulse 100 100 100 Oximetry 10/08/19 10/08/19 10/08/19 05:16 05:30 05:46 Temperature Pulse Rate 56 L 56 L 65 Pulse Rate [ From Monitor] Respiratory 30 H 30 H 26 H Rate Blood Pressure 120/68 116/64 116/64 O2 Sat by Pulse 100 100 100 Oximetry 10/08/19 10/08/19 10/08/19 06:00 06:16 06:30 Temperature Pulse Rate 58 L 57 L 56 L Pulse Rate [ From Monitor] Respiratory 30 H 30 H 30 H Rate Blood Pressure 116/64 116/64 114/69 O2 Sat by Pulse 98 99 100 Oximetry 10/08/19 10/08/19 10/08/19 06:46 07:00 07:16 Temperature Pulse Rate 56 L 58 L 57 L Pulse Rate [ From Monitor] Respiratory 30 H 30 H 30 H Rate Blood Pressure 116/64 112/65 109/67 O2 Sat by Pulse 100 100 100 Oximetry 10/08/19 10/08/19 10/08/19 07:30 07:46 07:51 Temperature 97.4 F L Pulse Rate 58 L 59 L Pulse Rate [ From Monitor] Respiratory 30 H 30 H Rate Blood Pressure 102/60 103/62 O2 Sat by Pulse 100 100 Oximetry 10/08/19 08:00 Temperature Pulse Rate 59 L Pulse Rate [ From Monitor] Respiratory 30 H Rate Blood Pressure 106/63 O2 Sat by Pulse 100 Oximetry - General Appearance General appearance: chronically ill, sedated on ventilator, intubated, frail, comatose EENT: ATNC Neck: no JVD Respiratory: Present: Decreased Breath Sounds Cardiology: regular, S1S2 Gastrointestinal: normal Integumentary: no rash Musculoskeletal: deferred - Lab 10/08/19 05:45 10/08/19 05:45 Most recent lab results ABG pH 7.309 pH Units (7.350-7.450) L 10/08/19 04:20 ABG pCO2 45.4 mm Hg 10/08/19 04:20 ABG pO2 305.9 mm Hg (80.0-90.0) H 10/08/19 04:20 ABG HCO3 22.3 mmol/L (20.0-26.0) 10/08/19 04:20 ABG O2 Saturation TNR 10/08/19 04:20 Calcium 8.6 mg/dL (8.4-10.2) 10/08/19 05:45 Phosphorus 4.70 mg/dL (2.5-4.5) H 10/01/19 12:45 Magnesium 2.50 mg/dL (1.7-2.3) H 10/01/19 12:45 Urine Creatinine 179.4 mg/dL (0.1-20.0) H 10/05/19 10:16 Urine Sodium 10 mmol/L 10/05/19 10:16 Urine Total Protein 66 mg/dL (5-11.8) H 10/05/19 10:16 Medications & Allergies - Medications Allergies/Adverse Reactions: Allergies No Known Allergies Allergy (Verified 10/01/19 06:31) Active Medications: Generic Name Dose Route Start Last Admin Trade Name Freq PRN Reason Stop Dose Admin Acetaminophen 650 mg 10/01/19 09:10 Tylenol PO Q6H PRN Pain MILD(1-3)/Fever >100.5/PALOMARES Albumin Human 25 gm 10/07/19 15:26 Alburx 25% (Albumin) IV KINJAL PRN Hypotension Albuterol 2.5 mg 10/01/19 09:10 Proventil IH Q3HRT PRN Shortness Of Breath Lipase/Protease/Amylase 1 each 10/02/19 11:44 Pancreaze 10,500 Unit FEEDTUBE PRN PRN For Clogged Feeding Tube Apixaban 5 mg 10/05/19 11:00 10/07/19 21:33 Eliquis PO 5 mg Q12HR CLARKE Administration Ascorbic Acid 500 mg 10/01/19 16:00 10/07/19 21:33 Vitamin C PO 500 mg BID CLARKE Administration Dextrose 50 ml 10/01/19 09:10 D50w (25gm) Syringe IV Q30MIN PRN Hypoglycemia Protocol Epoetin Mukesh 10,000 unit 10/07/19 15:26 Procrit IV KINJAL PRN hemodialysis Famotidine 20 mg 10/04/19 10:00 10/07/19 11:50 Pepcid PO 20 mg DAILY CLARKE Administration Fentanyl 50 mcg 10/01/19 15:03 Sublimaze IV Q10MIN PRN ANALGESIA Heparin Sodium (Porcine) 5,000 unit 10/07/19 15:26 Heparin IV KINJAL PRN hemodialysis Hydralazine HCl 10 mg 10/01/19 09:20 10/04/19 10:00 Apresoline IV 10 mg Q4HR PRN Administration Hypertension Hydrophilic Ointment 1 applic 10/04/19 14:47 Vaseline Lip Therapy TP Q2HR PRN Dry Lips Propofol 1,000 mg in 100 mls @ 1.905 mls/hr 10/01/19 14:00 10/08/19 05:39 Diprivan 10 Mg/Ml IV 50 mcg/kg/min TITR CLARKE 19.051 mls/hr Administration Protocol 5 MCG/KG/MIN Fentanyl Citrate 2,000 mcg in 100 mls @ 3.175 mls/hr 10/01/19 16:00 10/08/19 05:40 Fentanyl Drip Premix IV 4 mcg/kg/hr TITR CLARKE 12.701 mls/hr Administration Protocol 1 MCG/KG/HR Midazolam HCl 100 mg/ Sodium 100 mls @ 2 mls/hr 10/04/19 15:00 10/07/19 13:51 Chloride IV 5 mg/hr TITR CLAKRE 5 mls/hr Administration Protocol 2 MG/HR Sodium Chloride 500 mls @ 10 mls/hr 10/04/19 16:00 Nacl 0.9% 500 Ml IV DIRECT CLARKE Norepinephrine 4 mg in 250 mls @ 37.5 mls/hr 10/04/19 18:00 10/07/19 22:10 Levophed Drip 4 Mg/Ns 250 Ml IV 2 mcg/min TITR CLARKE 7.5 mls/hr Titration Protocol 10 MCG/MIN Sodium Chloride 100 mls @ 999 mls/hr 10/07/19 15:26 Nacl 0.9% IV KINJAL PRN Hypotension Insulin Human Isoph/Insulin Regular 60 unit 10/07/19 10:00 10/07/19 11:52 Humulin 70/30 SUB-Q 60 unit BIDDIAB CLARKE Administration Insulin Human Lispro 0 unit 10/01/19 12:00 10/08/19 06:26 Humalog SUB-Q 2 unit Q6HR CLARKE Administration Protocol Methylprednisolone Sodium Succinate 40 mg 10/03/19 14:00 10/08/19 05:41 Solu-Medrol IV 40 mg Q8HR CLARKE Administration Metoclopramide HCl 10 mg 10/01/19 09:10 Reglan IV Q6H PRN Nausea And Vomiting Midazolam HCl 2 mg 10/04/19 14:47 Versed IV Q10MIN PRN Sedation Multi-Ingred Cream/Lotion/Oil/Oint 1 applic 10/04/19 14:47 Artificial Tears Ophth Oint OU Q4HR PRN Dry Eye(s) Naloxone HCl 0.1 mg 10/01/19 09:10 Naloxone IV Q2MIN PRN Res Rate </= 8 or 02 SAT < 92% Simple Syrup 15 ml 10/02/19 11:44 Simple Syrup FEEDTUBE PRN PRN Hypoglycemia Simple Syrup 30 ml 10/02/19 11:44 Simple Syrup FEEDTUBE PRN PRN Hypoglycemia Sodium Bicarbonate 325 mg 10/02/19 11:44 Sodium Bicarbonate FEEDTUBE PRN PRN For Clogged Feeding Tube Sodium Chloride 10 ml 10/01/19 10:00 10/07/19 21:33 Sodium Chloride Flush Syringe 10 Ml IV 10 ml BID [place] Administration Sodium Chloride 10 ml 10/01/19 09:10 Sodium Chloride Flush Syringe 10 Ml IV PRN PRN LINE FLUSH Sodium Chloride 5 ml 10/04/19 14:47 Nacl 0.9% 500 Ml IV DIRECT PRN 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
[2019-10-08] MEDS: INSULIN NPH/REGULAR 70/30 INJ SUB-Q SCH ×2 (09:30→17:55)
[2019-10-08] MEDS: EPOETIN ALFA 10,000 UNIT/1 ML INJ IV PRN (09:43)
[2019-10-08] MEDS: FAMOTIDINE 20 MG TAB PO SCH (09:50)
[2019-10-08] MEDS: ZINC SULFATE 220 MG CAP PO SCH ×2 (09:50→20:59)
[2019-10-08] MEDS: APIXABAN 5 MG TAB PO SCH ×3 (09:50→21:00)
[2019-10-08] MEDS: ASCORBIC ACID 500 MG TAB PO SCH ×2 (09:50→20:59)
[2019-10-08] MEDS: MIDAZOLAM 100 MG in SODIUM CHLORIDE 0.9% 80 ML IV SCH (09:52)
[2019-10-08] MEDS ORDERED: SODIUM CHLORIDE 0.9% 1000 ML 2,000 ML ONE (10:02)
[2019-10-08] MEDS: ALBUMIN HUMAN 25% (25 GM/100 ML) INJ IV PRN (10:46)
--- NOTE | 2019-10-08 11:22 | Progress Note ---
Assessment and Plan Assessment and plan: Sepsis. Continue IV antibiotics per ID. Follow-up blood cultures. Given elevated procalcitonin level we will continue with IV antibiotics Bilateral pneumonia. Etiology secondary COVID-19. Continue to follow up serial chest x-ray. ARDS. Continue vent per pulmonary. COVID 19 infection. Actemra x1 and remdesivir. Continue to trend inflammatory markers. Consider convalescent plasma therapy per ID. COVID coagulopathy. Continue with full anticoagulation. Acute hypoxic respiratory failure. Etiology secondary to above. Continue on mechanical ventilation per pulmonary recommendations. Transaminitis. Etiology secondary to sepsis/COVID. Continue to trend LFTs. Acute kidney injury. Etiology secondary to ATN/sepsis superimposed on vasomotor nephropathy. Continue to follow BMP Coag negative staph bacteremia. Continue IV antibiotics. 10/03/2019. Patient's daughter Evelio Plascencia has consented to convalescent plasma therapy. Await type and screen for patient enrollment. Continue mechanical ventilation per pulmonary. Patient currently AC mode ventilation rate of 20, tidal volume 450 FiO2 70% and PEEP of 12. Continue Solu-Medrol 40 mg IV daily. Wean sedation of propofol and fentanyl as needed. 10/04/2019. Convalescent plasma enrollment form has been submitted. Patient currently on mechanical ventilation AC mode rate 20, tidal volume 450 FiO2 100%. Continue IV Solu-Medrol. Wean sedation of propofol and fentanyl as needed. Patient not a candidate of remdesivir secondary to elevated creatinine. Continue ceftriaxone and azithromycin for total of 5 days. Continue to trend inflammatory markers. Prognosis is extremely guarded. 10/05/2019. Await convalescent plasma. Continue IV steroids, ceftriaxone, azithromycin and full anticoagulation. Creatinine elevated and thus not a candidate for Remdesivir. Patient actually with worsening creatinine secondary to acute kidney injury with ATN in the setting of septic shock superimposed on vasomotor nephropathy. Continue pressors to maintain MAP> 65. 10/06/2019. Patient currently on AC mode ventilation rate 30, tidal volume 450 FiO2 60% and PEEP of 18. Await convalescent plasma. Continue IV steroids, ceftriaxone, azithromycin and full anticoagulation. Creatinine elevated and thus not a candidate for Remdesivir. 10/07/2019. Patient currently on AC mode ventilation rate 30, tidal volume 450 FiO2 80% and PEEP of 18. Await convalescent plasma. Continue IV steroids, ceftriaxone, azithromycin and full anticoagulation. Creatinine elevated and thus not a candidate for Remdesivir. Cont. proning 10/08/2019. Patient currently on AC mode ventilation rate 30, tidal volume 450 FiO2 70% and PEEP of 20. Await convalescent plasma. Continue IV steroids, ceftriaxone, azithromycin and full anticoagulation. Creatinine elevated and thus not a candidate for Remdesivir. Cont. proning The high probability of a clinically significant, sudden or life threatening deterioration of the [respiratory] system(s) required my full and direct attention, intervention and personal management. The aggregate critical care time was [31] minutes. This time is in addition to time spent performing reported procedures but includes the following: [x] Data Review and interpretation [x] Patient assessment and monitoring of vital signs [x] Documentation [x] Medication orders and management History Interval history: The patient is a 64-year-old female who came into the emergency room with complaints of shortness of breath and cough. She has a history of diabetes and hypertension. Due to significant hypoxia, she was intubated and placed on mechanical ventilation. COVID-19 test is positive. Additionally, her labs show ferritin 1646, procalcitonin 1.73, LDH 766, CRP 18.6, mild transaminitis, d- dimer 1957. Hospitalist Physical - Constitutional Vitals: Temp Pulse Resp BP Pulse Ox 97.4 F L 72 28 H 145/77 100 10/08/19 09:10 10/08/19 10:00 10/08/19 09:10 10/08/19 10:00 10/08/19 09:10 General appearance: Present: well-nourished, other (Patient on mechanical ventilation) - EENT Eyes: Present: PERRL, EOM intact ENT: hearing intact, clear oral mucosa, dentition normal - Neck Neck: Present: supple, normal ROM - Respiratory Respiratory effort: normal Respiratory: bilateral: CTA - Cardiovascular Rhythm: regular Heart Sounds: Present: S1 & S2. Absent: gallop, rub - Extremities Extremities: no ischemia, No edema, Full ROM - Abdominal General gastrointestinal: soft, non-tender, non-distended, normal bowel sounds - Integumentary Integumentary: Present: clear, warm, dry - Neurologic Neurologic: CNII-XII intact, moves all extremities HEART Score - HEART Score Troponin: Troponin T 0.018 ng/mL (0.00-0.029) 07/06/20 05:36 Results - Labs CBC & Chem 7: 10/08/19 05:45 10/08/19 05:45 Labs: Laboratory Last Values WBC 24.2 K/mm3 (4.5-11.0) H 10/08/19 05:45 RBC 3.47 M/mm3 (3.65-5.03) L 10/08/19 05:45 Hgb 10.5 gm/dl (10.1-14.3) 10/08/19 05:45 Hct 31.3 % (30.3-42.9) 10/08/19 05:45 MCV 90 fl (79-97) 10/08/19 05:45 MCH 30 pg (28-32) 10/08/19 05:45 MCHC 33 % (30-34) 10/08/19 05:45 RDW 15.7 % (13.2-15.2) H 10/08/19 05:45 Plt Count 67 K/mm3 (140-440) L 10/08/19 05:45 Lymph % (Auto) [employer] Grinder 10/01/19 06:31 [place] % (Auto) 4.4 % (0.0-7.3) 10/06/19 06:07 Eos % (Auto) 0.1 % (0.0-4.3) 10/06/19 06:07 Baso % (Auto) [employer] Grinder 10/01/19 06:31 Lymph # Carbide Grinder 10/01/19 06:31 [place] # 0.9 K/mm3 (0.0-0.8) H 10/06/19 06:07 Eos # 0.0 K/mm3 (0.0-0.4) 10/06/19 06:07 Baso # 0.0 K/mm3 (0.0-0.1) 10/06/19 06:07 Add Manual Diff Complete 10/08/19 05:45 Total Counted 100 10/08/19 05:45 Seg Neutrophils % Carbide Grinder 10/08/19 05:45 Seg Neuts % (Manual) 97.0 % (40.0-70.0) H 10/08/19 05:45 Band Neutrophils % 0 % 10/08/19 05:45 Lymphocytes % (Manual) 0 % (13.4-35.0) L 10/08/19 05:45 Reactive Lymphs % (Man) 0 % 10/08/19 05:45 Monocytes % (Manual) 2.0 % (0.0-7.3) 10/08/19 05:45 Eosinophils % (Manual) 1.0 % (0.0-4.3) 10/08/19 05:45 Basophils % (Manual) 0 % (0.0-1.8) 10/08/19 05:45 Metamyelocytes % 0 % 10/08/19 05:45 Myelocytes % 0 % 10/08/19 05:45 Promyelocytes % 0 % 10/08/19 05:45 Blast Cells % 0 % 10/08/19 05:45 Nucleated RBC % 6.0 % (0.0-0.9) H 10/08/19 05:45 Seg Neutrophils # 18.4 K/mm3 (1.8-7.7) H 10/06/19 06:07 Seg Neutrophils # Man 23.5 K/mm3 (1.8-7.7) H 10/08/19 05:45 Band Neutrophils # 0.0 K/mm3 10/08/19 05:45 Lymphocytes # (Manual) 0.0 K/mm3 (1.2-5.4) L 10/08/19 05:45 Abs React Lymphs (Man) 0.0 K/mm3 10/08/19 05:45 Monocytes # (Manual) 0.5 K/mm3 (0.0-0.8) 10/08/19 05:45 Eosinophils # (Manual) 0.2 K/mm3 (0.0-0.4) 10/08/19 05:45 Basophils # (Manual) 0.0 K/mm3 (0.0-0.1) 10/08/19 05:45 Metamyelocytes # 0.0 K/mm3 10/08/19 05:45 Myelocytes # 0.0 K/mm3 10/08/19 05:45 Promyelocytes # 0.0 K/mm3 10/08/19 05:45 Blast Cells # 0.0 K/mm3 10/08/19 05:45 WBC Morphology Not Reportable 10/08/19 05:45 Hypersegmented Neuts Not Reportable 10/08/19 05:45 Hyposegmented Neuts Not Reportable 10/08/19 05:45 Hypogranular Neuts Not Reportable 10/08/19 05:45 Smudge Cells Not Reportable 10/08/19 05:45 Toxic Granulation Not Reportable 10/08/19 05:45 Toxic Vacuolation Not Reportable 10/08/19 05:45 Dohle Bodies Not Reportable 10/08/19 05:45 Pelger-Huet Anomaly Not Reportable 10/08/19 05:45 Dona Rods Not Reportable 10/08/19 05:45 Platelet Estimate Cons 10/08/19 05:45 Clumped Platelets Not Reportable 10/08/19 05:45 Plt Clumps, EDTA Not Reportable 10/08/19 05:45 Large Platelets Few 10/08/19 05:45 Giant Platelets Not Reportable 10/08/19 05:45 Platelet Satelliting Not Reportable 10/08/19 05:45 Plt Morphology Comment Not Reportable 10/08/19 05:45 RBC Morphology Not Reportable 10/08/19 05:45 Dimorphic RBCs Not Reportable 10/08/19 05:45 Polychromasia Few 10/08/19 05:45 Hypochromasia Not Reportable 10/08/19 05:45 Poikilocytosis Not Reportable 10/08/19 05:45 Anisocytosis 1+ 10/08/19 05:45 Microcytosis Not Reportable 10/08/19 05:45 Macrocytosis Not Reportable 10/08/19 05:45 Spherocytes Not Reportable 10/08/19 05:45 Pappenheimer Bodies Not Reportable 10/08/19 05:45 Sickle Cells Not Reportable 10/08/19 05:45 Target Cells Not Reportable 10/08/19 05:45 Tear Drop Cells Not Reportable 10/08/19 05:45 Ovalocytes Not Reportable 10/08/19 05:45 Helmet Cells Not Reportable 10/08/19 05:45 [place] Bodies Not Reportable 10/08/19 05:45 [place] Rings Not Reportable 10/08/19 05:45 [place] Cells Not Reportable 10/08/19 05:45 Bite Cells Not Reportable 10/08/19 05:45 Crenated Cell Not Reportable 10/08/19 05:45 Elliptocytes Not Reportable 10/08/19 05:45 Acanthocytes (Spur) Not Reportable 10/08/19 05:45 Rouleaux Not Reportable 10/08/19 05:45 Hemoglobin C Crystals Not Reportable 10/08/19 05:45 Schistocytes Not Reportable 10/08/19 05:45 Malaria parasites Not Reportable 10/08/19 05:45 Cornelio Bodies Not Reportable 10/08/19 05:45 Hem Pathologist Commnt No 10/08/19 05:45 PT 14.5 Sec. (12.2-14.9) 10/01/19 05:36 INR 1.15 (0.87-1.13) H 10/01/19 05:36 APTT 28.6 Sec. (24.2-36.6) 10/01/19 05:36 D-Dimer > 91658 ng/mlDDU (0-234) H 10/05/19 12:10 ABG pH 7.309 pH Units (7.350-7.450) L 10/08/19 04:20 ABG pCO2 45.4 mm Hg 10/08/19 04:20 ABG pO2 305.9 mm Hg (80.0-90.0) H 10/08/19 04:20 ABG HCO3 22.3 mmol/L (20.0-26.0) 10/08/19 04:20 ABG O2 Saturation TNR 10/08/19 04:20 ABG O2 Content 21.8 (0.0-44) 10/08/19 04:20 ABG Base Excess -4.1 mmol/L (-2.0-3.0) L 10/08/19 04:20 ABG Hemoglobin TNR 10/08/19 04:20 ABG Carboxyhemoglobin TNR 10/08/19 04:20 ABG Methemoglobin TNR 10/08/19 04:20 Oxyhemoglobin TNR 10/08/19 04:20 FiO2 90 % 10/08/19 04:20 Sodium 148 mmol/L (137-145) H 10/08/19 05:45 Potassium 4.0 mmol/L (3.6-5.0) 10/08/19 05:45 Chloride 105.9 mmol/L (98-107) 10/08/19 05:45 Carbon Dioxide 22 mmol/L (22-30) 10/08/19 05:45 Anion Gap 24 mmol/L 10/08/19 05:45 BUN 137 mg/dL (7-17) H 10/08/19 05:45 Creatinine 3.5 mg/dL (0.7-1.2) H 10/08/19 05:45 Estimated GFR 16 ml/min 10/08/19 05:45 BUN/Creatinine Ratio 39 % 10/08/19 05:45 Glucose 183 mg/dL (65-100) H 10/08/19 05:45 POC Glucose 192 (70-105) H 10/08/19 06:06 Ketones Quantitative Negative (Negative) 10/01/19 06:31 Lactic Acid 1.80 mmol/L (0.7-2.0) 10/02/19 08:04 Calcium 8.6 mg/dL (8.4-10.2) 10/08/19 05:45 Phosphorus 4.70 mg/dL (2.5-4.5) H 10/01/19 12:45 Magnesium 2.50 mg/dL (1.7-2.3) H 10/01/19 12:45 Ferritin 1646.0 ng/mL (13.0-400.0) H 10/01/19 12:24 Total Bilirubin 0.30 mg/dL (0.1-1.2) 10/07/19 11:04 Direct Bilirubin < 0.2 mg/dL (0-0.2) 10/01/19 05:36 Indirect Bilirubin 0.1 mg/dL 10/01/19 05:36 AST 136 units/L (5-40) H 10/07/19 11:04 ALT 109 units/L (7-56) H 10/07/19 11:04 Alkaline Phosphatase 263 units/L (35-129) H 10/07/19 11:04 Lactate Dehydrogenase 766 units/L (91-180) H 10/01/19 12:24 Troponin T 0.018 ng/mL (0.00-0.029) 10/01/19 05:36 C-Reactive Protein 18.60 mg/dL (0.00-1.30) H 10/01/19 12:24 NT-Pro-B Natriuret Pep 1525 pg/mL (0-900) H 10/01/19 12:45 Total Protein 4.8 g/dL (6.3-8.2) L 10/07/19 11:04 Albumin 2.7 g/dL (3.9-5) L 10/07/19 11:04 Albumin/Globulin Ratio 1.3 % 10/07/19 11:04 Triglycerides 428 mg/dL (2-149) H 10/08/19 05:45 Procalcitonin 1.73 ng/mL (<0.15) 10/01/19 12:24 Urine Color Yellow (Yellow) 10/05/19 10:17 Urine Turbidity Cloudy (Clear) 10/05/19 10:17 Urine pH 5.0 (5.0-7.0) 10/05/19 10:17 Ur Specific [place] 1.018 (1.003-1.030) 10/05/19 10:17 Urine Protein 30 mg/dl mg/dL (Negative) 10/05/19 10:17 Urine Glucose (UA) Neg mg/dL (Negative) 10/05/19 10:17 Urine Ketones Neg mg/dL (Negative) 10/05/19 10:17 Urine Blood Mod (Negative) 10/05/19 10:17 Urine Nitrite Neg (Negative) 10/05/19 10:17 Urine Bilirubin Neg (Negative) 10/05/19 10:17 Urine Urobilinogen < 2.0 mg/dL (<2.0) 10/05/19 10:17 Ur Leukocyte Esterase Neg (Negative) 10/05/19 10:17 Urine WBC (Auto) 25.0 /HPF (0.0-6.0) H 10/05/19 10:17 Urine RBC (Auto) 109.0 /HPF (0.0-6.0) 10/05/19 10:17 U Epithel Cells (Auto) 3.0 /HPF (0-13.0) 10/05/19 10:17 Urine Bacteria (Auto) 1+ /HPF (Negative) 10/05/19 10:17 Urine Mucus Few /HPF 10/05/19 10:17 Urine Creatinine 179.4 mg/dL (0.1-20.0) H 10/05/19 10:16 Urine Microalbumin 6.7 mg/dL (0.1-34.0) 10/01/19 09:10 Microalb/Creat Ratio 37.3 ug/mg 10/01/19 09:10 Urine Sodium 10 mmol/L 10/05/19 10:16 Urine Total Protein 66 mg/dL (5-11.8) H 10/05/19 10:16 Coronavirus (PCR) Positive (Negative) A 10/01/19 Unknown Blood Type B POSITIVE 10/03/19 13:50 Antibody Screen Negative 10/03/19 13:50 Microbiology: Microbiology 10/05/19 04:22 Tracheal Aspirate Sputum Culture - Final 10/05/19 10:17 Urine,Clean Catch Urine Culture - Final NO GROWTH AFTER 48 HOURS - Diagnostic Impressions Diagnostic Impressions: Echocardiogram 10/02/19 19:48 Transthoracic Echocardiogram Indication: Elevated BNP BP: 78/37 HR: 75 Conclusions *Global left ventricular systolic function is normal. *The estimated ejection fraction is 50-55%. *The right ventricular global systolic function is normal. *There is mild to moderate tricuspid regurgitation. *The right ventricular systolic pressure is calculated at 75 mmHg. *There is no evidence of mitral regurgitation. *There is no evidence of aortic regurgitation. *There is trace pulmonic regurgitation. *There is no pericardial effusion. *There is evidence of severe pulmonary hypertension. Findings Left Ventricle: Global left ventricular wall motion and contractility are within normal limits. Global left ventricular systolic function is normal. The estimated ejection fraction is 50-55%. Abnormal left ventricular diastolic filling is observed, consistent with impaired relaxation. Left Atrium: The left atrial chamber size is normal. Right Ventricle: The right ventricular cavity size is normal. The right ventricular global systolic function is normal. Right Atrium: The right atrial cavity size is normal. Aortic Valve: The aortic valve leaflets are mildly thickened. There is no evidence of aortic regurgitation. Mitral Valve: The mitral valve leaflets are mildly thickened. There is no evidence of mitral regurgitation. Tricuspid Valve: The tricuspid valve leaflets are normal. There is mild to moderate tricuspid regurgitation. The right ventricular systolic pressure is calculated at 75 mmHg. There is evidence of severe pulmonary hypertension. Pulmonic Valve: The pulmonic valve appears normal. There is trace pulmonic regurgitation. Pericardium: There is no pericardial effusion. Aorta: The aorta appears normal. Venous: The inferior vena cava appears normal. Measurements Chambers 2D Name Value Normal Range IVSd (2D) 1.1 cm (0.6 - 1.1) LVPWd (2D) 1.03 cm (0.6 - 1.1) IVS:LVPW ratio (2D) 1.07 ratio - LVIDd (2D) 2.7 cm (3.7 - 5.6) LVIDs (2D) 2.02 cm (2 - 3.8) LV FS (Teichholz) (2D) 25.2 % - LV FS (cube) (2D) 25.2 % - EF Teichholz (2D) 51.5 % - Ao root diameter (2D) 2.4 cm (2 - 3.7) LA dimension (AP) 2D 2.9 cm (1.9 - 4) LA:Ao ratio (2D) 1.21 ratio - Volumes/Mass Name Value Normal Range LA ESV SP 4CH (MOD) 23 ml - LA ESV SP 2CH (MOD) 21 ml - LA ESV BP (MOD) 22 ml - LA ESV BP (MOD) index 13.6 ml/m2 - LV EDV SP 4CH (MOD) 54 ml - LV ESV SP 4CH (MOD) 20 ml - EF SP 4CH (MOD) 63 % - LV EDV SP 2CH (MOD) 48 ml - LV ESV SP 2CH (MOD) 20 ml - EF SP 2CH (MOD) 58 % - LV EDV BP 51 ml - LV ESV BP 20 ml - BP EF (MOD) 61 % - Diastolic/Systolic Function Name Value Normal Range MV E-wave Vmax 0.94 m/sec - MV deceleration time 218 msec - MV A-wave Vmax 1.06 m/sec - MV E:A ratio 0.9 ratio - LV septal e' Vmax 0.08 m/sec - LV lateral e' Vmax 0.08 m/sec - LV E:e' septal ratio 11.3 ratio - LV E:e' lateral ratio 11.4 ratio - Aortic Valve Name Value Normal Range AV VTI 29.3 cm - AV mean gradient 8 mmHg - LVOT diameter 2 cm - LVOT VTI 29.7 cm - LVOT mean gradient 6 mmHg - SV LVOT 93 ml - YASMEEN (continuity VTI) 3.18 cm2 - Tricuspid Valve Name Value Normal Range TR Vmax 4.25 m/sec - TR peak gradient 72 mmHg - RAP 3 mmHg - RVSP 75 mmHg - Pulmonic Valve/Qp:Qs Name Value Normal Range PV Vmax 1.11 m/sec - PV peak gradient 5 mmHg - WV end-diastolic Vmax 1.71 m/sec - PV acceleration time 77 msec - Alexis/IV: Voiding Method Indwelling Catheter IV Catheter Type [Left Upper PICC Line arm] IV Catheter Type [Left Forearm INT / Saline Lock ] IV Catheter Type [Right Hand] Peripheral IV IV Catheter Type [Left Foot] INT / Saline Lock IV Catheter Type [Right Peripheral IV Forearm] Active Medications - Current Medications Current Medications: Generic Name Dose Route Start Last Admin Trade Name Freq PRN Reason Stop Dose Admin Acetaminophen 650 mg 10/01/19 09:10 Tylenol PO Q6H PRN Pain MILD(1-3)/Fever >100.5/PALOMARES Albumin Human 25 gm 10/07/19 15:26 10/08/19 10:46 Alburx 25% (Albumin) IV 25 gm KINJAL PRN Administration Hypotension Albuterol 2.5 mg 10/01/19 09:10 Proventil IH Q3HRT PRN Shortness Of Breath Lipase/Protease/Amylase 1 each 10/02/19 11:44 Pancreaze 10,500 Unit FEEDTUBE PRN PRN For Clogged Feeding Tube Apixaban 5 mg 10/05/19 11:00 10/07/19 21:33 Eliquis PO 5 mg Q12HR CLARKE Administration Ascorbic Acid 500 mg 10/01/19 16:00 10/07/19 21:33 Vitamin C PO 500 mg BID CLARKE Administration Dextrose 50 ml 10/01/19 09:10 D50w (25gm) Syringe IV Q30MIN PRN Hypoglycemia Protocol Epoetin Mukesh 10,000 unit 10/07/19 15:26 10/08/19 09:43 Procrit IV 10,000 unit KINJAL PRN Administration hemodialysis Famotidine 20 mg 10/04/19 10:00 10/07/19 11:50 Pepcid PO 20 mg DAILY CLARKE Administration Fentanyl 50 mcg 10/01/19 15:03 Sublimaze IV Q10MIN PRN ANALGESIA Heparin Sodium (Porcine) 5,000 unit 10/07/19 15:26 Heparin IV KINJAL PRN hemodialysis Hydralazine HCl 10 mg 10/01/19 09:20 10/04/19 10:00 Apresoline IV 10 mg Q4HR PRN Administration Hypertension Hydrophilic Ointment 1 applic 10/04/19 14:47 Vaseline Lip Therapy TP Q2HR PRN Dry Lips Propofol 1,000 mg in 100 mls @ 1.905 mls/hr 10/01/19 14:00 10/08/19 05:39 Diprivan 10 Mg/Ml IV 50 mcg/kg/min TITR CLARKE 19.051 mls/hr Administration Protocol 5 MCG/KG/MIN Fentanyl Citrate 2,000 mcg in 100 mls @ 3.175 mls/hr 10/01/19 16:00 10/08/19 05:40 Fentanyl Drip Premix IV 4 mcg/kg/hr TITR CLARKE 12.701 mls/hr Administration Protocol 1 MCG/KG/HR Midazolam HCl 100 mg/ Sodium 100 mls @ 2 mls/hr 10/04/19 15:00 10/07/19 13:51 Chloride IV 5 mg/hr TITR CLARKE 5 mls/hr Administration Protocol 2 MG/HR Sodium Chloride 500 mls @ 10 mls/hr 10/04/19 16:00 Nacl 0.9% 500 Ml IV DIRECT CLARKE Norepinephrine 4 mg in 250 mls @ 37.5 mls/hr 10/04/19 18:00 10/07/19 22:10 Levophed Drip 4 Mg/Ns 250 Ml IV 2 mcg/min TITR CLARKE 7.5 mls/hr Titration Protocol 10 MCG/MIN Sodium Chloride 100 mls @ 999 mls/hr 10/07/19 15:26 Nacl 0.9% IV KINJAL PRN Hypotension Insulin Human Isoph/Insulin Regular 60 unit 10/07/19 10:00 10/07/19 11:52 Humulin 70/30 SUB-Q 60 unit BIDDIAB [facility] Administration Insulin Human Lispro 0 unit 10/01/19 12:00 10/08/19 06:26 Humalog SUB-Q 2 unit Q6HR [facility] Administration Protocol Methylprednisolone Sodium Succinate 40 mg 10/03/19 14:00 10/08/19 05:41 Solu-Medrol IV 40 mg Q8HR [facility] Administration Metoclopramide HCl 10 mg 10/01/19 09:10 Reglan IV Q6H PRN Nausea And Vomiting Midazolam HCl 2 mg 10/04/19 14:47 Versed IV Q10MIN PRN Sedation Multi-Ingred Cream/Lotion/Oil/Oint 1 applic 10/04/19 14:47 Artificial Tears Ophth Oint OU Q4HR PRN Dry Eye(s) Naloxone HCl 0.1 mg 10/01/19 09:10 Naloxone IV Q2MIN PRN Res Rate </= 8 or 02 SAT < 92% Simple Syrup 15 ml 10/02/19 11:44 Simple Syrup FEEDTUBE PRN PRN Hypoglycemia Simple Syrup 30 ml 10/02/19 11:44 Simple Syrup FEEDTUBE PRN PRN Hypoglycemia Sodium Bicarbonate 325 mg 10/02/19 11:44 Sodium Bicarbonate FEEDTUBE PRN PRN For Clogged Feeding Tube Sodium Chloride 10 ml 10/01/19 10:00 10/07/19 21:33 Sodium Chloride Flush Syringe 10 Ml IV 10 ml BID CLARKE Administration Sodium Chloride 10 ml 10/01/19 09:10 Sodium Chloride Flush Syringe 10 Ml IV PRN PRN LINE FLUSH Sodium Chloride 5 ml 10/04/19 14:47 Nacl 0.9% 500 Ml IV DIRECT PRN ARTERIAL TEST CARRIER Zinc Sulfate 220 mg 10/01/19 16:00 10/07/19 21:33 Zinc Sulfate PO 220 mg BID CLARKE Administration Nutrition/Malnutrition Assess - Dietary Evaluation Nutrition/Malnutrition Findings: Nutrition Notes Start: 10/01/19 14:13 Freq: Status: Active Protocol: Document 10/08/19 09:39 LP (Rec: 10/08/19 09:53 LP [id number]) Nutrition Notes Initial or Follow up Reassessment Current Diagnosis Acute Kidney Injury,Diabetes, Hypertension Other Pertinent Diagnosis COVID-19 (+) Current Diet Nepro at 30ml/hr Labs/Tests TG 428 Na 148 Pertinent Medications Propofol at 19ml/hr Height 5 ft 1 in Weight 63.503 kg [place] Body Weight (kg) 47.72 BMI 26.4 Weight Status Overweight Subjective/Other Information Pt tolerating TF at goal rate. Percent of energy/protein needs met: 100%/76% with propofol Burn Absent Trauma Absent GI Symptoms None Current % PO Negligible Minimum of two criteria No physical signs of malnutrition #1 Nutrition Diagnosis Inadequate oral intake Diagnosis Progress(for reassessment Continues documentation) Is patient on ventilator? Yes Is Patient Ambulatory and/or Out of Bed No REE-([facility]-confined to bed) [phone] Calculation Used for Recommendations [facility] Additional Notes Protein needs are 76-127g (1.2 -2g/kg) Fluid needs are 1ml/kcal Nutrition Intervention Change Diet Order: TF Nutrition Support: Nepro 1.8 at 30ml/hr Flush 130ml q4h When prone Nepro at 20ml/hr for 12 hr Flush 70ml q4h When Supine Nepro 1.8 at 40ml/ hr for the remaining 12 hr Flush 100ml q4h MD flush order 150ml q4h Kcal 1,296 Protein (gm) 58 Fluid (mL) 523 Goal #1 Meet at least 75% of kcal and protein needs Anticipated Discharge Needs: Unable to determine at this time Follow-Up By: 10/12/19 Additional Comments Follow for TF tolerance and Na
[2019-10-08] MEDS: NORepinephrine/NS 4 MG-250 ML 4 MG/250 ML BAG IV SCH (11:50)
[2019-10-08 13:16] LABS: Hepatitis B Surface Antigen Non-Reactive (Negative); Hepatitis C Virus Antibody Non-Reactive (NonReactive)
--- NOTE | 2019-10-08 13:52 | Progress Note ---
Assessment and Plan Cultures: 10/01/2019 coronavirus PCR: Positive 10/01/2019 blood culture: CoNS in 1/4 bottles 10/01/2019 tracheal aspirate culture: No growth A/P: 64-year-old female with diabetes, hypertension admitted with: #Bilateral pneumonia: Secondary to COVID-19. Inflammatory markers are significantly elevated. s/p Actemra on 10/01/2019. Continue steroids. Creatinine elevated, not a candidate for Remdesivir #Acute hypoxic respiratory failure: On mechanical ventilation. #Mild transaminitis: Likely secondary to COVID-19 #CoNS bacteremia: CoNS in 1/4 bottles, likely a contaminant. #FANI: creatinine high. Recs: Continue steroids continue with full anticoagulation trend ferritin, d-dimer, CRP every 2 days for risk stratification and to assess disease progression Consider enrollment for convalescent plasma Ashly Booker MD, FACP [facility] C: [phone] O: [phone] F: [phone] Subjective Date of service: 10/08/19 Principal diagnosis: Ac. hypoxemic resp failure; ARDS; COVID-19 virus infxn; PNA; Severe sepsis Interval history: No fever. Remains intubated, sedated, on the vent. Objective - Exam Narrative Exam: Physical Exam (reviewed in chart due to PPE conservation) Constitutional: intubated, sedated, on the vent Head, Ears, Nose: normocephalic, atraumatic Eyes: limited due to PPE conservation strategy Neck: intubated Oral: intubated Cardiovascular: limited due to PPE conservation strategy Respiratory: limited due to PPE conservation strategy GI: limited due to PPE conservation strategy Musculoskeletal: limited due to PPE conservation strategy Skin: limited due to PPE conservation strategy Hem/Lymphatic: limited due to PPE conservation strategy Psych: no agitation Neurological: sedated, intubated, on the vent, exam limited - Constitutional Vitals: Vital Signs Temp Pulse Resp BP Pulse Ox 97.4 F L 97 H 30 H 120/46 92 10/08/19 09:10 10/08/19 12:30 10/08/19 12:30 10/08/19 12:30 10/08/19 12:30 Temperature -Last 24 Hours Temperature 97.4 F Temperature 97.4 F Temperature 97.0 F Temperature 96.9 F Temperature 98.2 F Temperature 98.4 F - Labs CBC & Chem 7: 10/08/19 05:45 10/08/19 05:45 Labs: Abnormal lab results 10/07/19 10/08/19 10/08/19 Range/Units 19:33 00:30 01:16 WBC 23.4 H (4.5-11.0) K/mm3 RBC 3.45 L (3.65-5.03) M/mm3 RDW 15.8 H (13.2-15.2) % Plt Count 67 L (140-440) K/mm3 Seg Neuts % (Manual) 96.0 H (40.0-70.0) % Lymphocytes % (Manual) 1.5 L (13.4-35.0) % Nucleated RBC % 3.0 H (0.0-0.9) % Seg Neutrophils # Man 22.5 H (1.8-7.7) K/mm3 Lymphocytes # (Manual) 0.4 L (1.2-5.4) K/mm3 ABG pH (7.350-7.450) pH Units ABG pO2 (80.0-90.0) mm Hg ABG Base Excess (-2.0-3.0) mmol/L Sodium (137-145) mmol/L BUN (7-17) mg/dL Creatinine (0.7-1.2) mg/dL Glucose (65-100) mg/dL POC Glucose 198 H 212 H (70-105) Triglycerides (2-149) mg/dL 10/08/19 10/08/19 10/08/19 Range/Units 04:20 05:45 05:45 WBC 24.2 H (4.5-11.0) K/mm3 RBC 3.47 L (3.65-5.03) M/mm3 RDW 15.7 H (13.2-15.2) % Plt Count 67 L (140-440) K/mm3 Seg Neuts % (Manual) 97.0 H (40.0-70.0) % Lymphocytes % (Manual) 0 L (13.4-35.0) % Nucleated RBC % 6.0 H (0.0-0.9) % Seg Neutrophils # Man 23.5 H (1.8-7.7) K/mm3 Lymphocytes # (Manual) 0.0 L (1.2-5.4) K/mm3 ABG pH 7.309 L (7.350-7.450) pH Units ABG pO2 305.9 H (80.0-90.0) mm Hg ABG Base Excess -4.1 L (-2.0-3.0) mmol/L Sodium 148 H (137-145) mmol/L BUN 137 H (7-17) mg/dL Creatinine 3.5 H (0.7-1.2) mg/dL Glucose 183 H (65-100) mg/dL POC Glucose (70-105) Triglycerides (2-149) mg/dL 10/08/19 10/08/19 Range/Units 05:45 06:06 WBC (4.5-11.0) K/mm3 RBC (3.65-5.03) M/mm3 RDW (13.2-15.2) % Plt Count (140-440) K/mm3 Seg Neuts % (Manual) (40.0-70.0) % Lymphocytes % (Manual) (13.4-35.0) % Nucleated RBC % (0.0-0.9) % Seg Neutrophils # Man (1.8-7.7) K/mm3 Lymphocytes # (Manual) (1.2-5.4) K/mm3 ABG pH (7.350-7.450) pH Units ABG pO2 (80.0-90.0) mm Hg ABG Base Excess (-2.0-3.0) mmol/L Sodium (137-145) mmol/L BUN (7-17) mg/dL Creatinine (0.7-1.2) mg/dL Glucose (65-100) mg/dL POC Glucose 192 H (70-105) Triglycerides 428 H (2-149) mg/dL
[2019-10-09] MEDS: INSULIN LISPRO 100 UNIT/ML SUB-Q SCH ×4 (00:44→17:10)
[2019-10-09] MEDS: fentaNYL DRIP Premix 2,000 MCG/100 ML BAG IV SCH ×3 (02:19→16:48)
[2019-10-09] MEDS: MIDAZOLAM 100 MG in SODIUM CHLORIDE 0.9% 80 ML IV SCH (03:25)
--- NOTE | 2019-10-09 04:16 | XRay Report ---
CHEST 1 VIEW 10/09/2019 3:25 AM INDICATION / CLINICAL INFORMATION: follow up respiratory failure. COMPARISON: 10/08/2019 FINDINGS: SUPPORT DEVICES: Lines and tubes again project in expected position HEART / MEDIASTINUM: No significant abnormality. LUNGS / PLEURA: Mild/moderate bilateral parenchymal disease has slightly worsened characteristic for pneumonia. No pneumothorax. ADDITIONAL FINDINGS: No significant additional findings. IMPRESSION: 1. Worsening bilateral bronchopneumonia Signer Name: Carlitos Asif MD Signed: 10/09/2019 4:12 AM Workstation Name: [id number]
[2019-10-09] MEDS: methylPREDNISolone Sod Succinate 40 MG/1 ML INJ IV SCH ×3 (05:53→23:15)
[2019-10-09 05:55] LABS: ABG Base Excess -4.9 mmol/L (-2.0-3.0); ABG HCO3 23.4 mmol/L (20.0-26.0); ABG Methemoglobin 0.6 % (0.0-1.5); ABG Oxygen Saturation 97.6 % (95.0-99.0); ABG PCO2 61.8 mm Hg; ABG PO2 121.3 mm Hg (80.0-90.0)
[2019-10-09 06:01] LABS: ABG PH 7.196 pH Units (7.350-7.450)
[2019-10-09] MEDS ORDERED: SODIUM BICARB 8.4% 50 MEQ/50 ML SYRINGE IV ONE (06:18)
[2019-10-09] MEDS: INSULIN NPH/REGULAR 70/30 INJ SUB-Q SCH ×2 (08:42→17:10)
--- NOTE | 2019-10-09 09:47 | Progress Note ---
Assessment and Plan Severe sepsis secondary to COVID COVID pneumonia with ARDS Acute hypoxemic respiratory failure, orally intubated on MVS Multi-lobar pneumonia FANI Thrombocytopenia - PEEP at 20 monitor airway pressures closely, will get ABG in the morning if oxygenation is acceptable, plan to wean PEEP down by 2 -Stop propofol in the morning - Wean supplemental oxygen for target O2 sats > 94% -ABG daily. CXR prn -Follow HIT panel _start on PPI, since hemoglobin is stable, BID dosing -Wean off noreponphrine -Supportive transfusions as inidcated fro HgB <7g/dL -Place NGT to LIS, -HD/UF today with intradialytic vasopressor support if needed -D/C arterial line -CBC, BMP daily - Daily SAT's and SBT assessment - current ventilator demands precludes this - VAP bundle addressed - Lung protective strategies -Fluid conservative measures as tolerated by hemodynamics and renal function - Bronchodilators with pulmonary hygiene per RT - Accuchecks with glycemic control per SSI (While critically ill target blood glucose of 140-180 mg/dL; avoid hypoglycemia) - Avoid benzodiazepines, reduce the possibility of delirium - prn analgesia per CPOT score - Maintenance of sleep-wake cycle, avoid delirium -Avoid nephrotoxins, closely monitor renal function -Alexis catheter for accurate intake and output monitoring in this critically ill patient with COVID-ARDS, severe hypoxemia - Completed empiric antibiotics( Ceftriaxone and Azithromycin for CAP ) -Aspiration precautions, HOB >40 -Sedation Fentanyl, Propofol and midazolam titrate to RASS -2 to -4 - Stress ulcer prophylaxis ( Famotidine) - Mobility protocol, off loading and skin assessment for pressure ulcer prevention - Monitor hemodynamics closely -Supportive transfusions as indicated to keep HgB >7g/dL COVID SPECIFIC INTERVENTIONS -Needs aggressive management per ID/Pulmonary drive protocols -Airborne, contact isolation for COVID per facility protocols -Patient has renal impairment and is not a candidate for Remdesivir at this time -Consent and administration of convalescent plasma per facility protocol- still awaiting delivery of plasma -Continue with steroids, solumedrol IV 40mg q8 -Stopped therapeutic anticoagulation for now -Continue to trend inflammatory markers per facility protocol -Continue all supportive care -Contact tracing and testing of her contacts Discussed with the ICU team-RT,RN, Life threatening condition- Severe sepsis with COVID 19 ARDS acute hypoxemic respiratory failure on MVS Mortality/Morbidity- High Complexity of medical decision making- High CONDITION: CRITICAL PROGNOSIS: GUARDED-GRAVE CODE STATUS: FULL CODE The high probability of a clinically significant, sudden or life-threatening deterioration of the [respiratory , cardiovascular, renal, neurology] system(s) required my full and direct attention, intervention and personal management. The aggregate critical care time was [45] minutes without overlap. Time includes spent on; [x] Data Review and interpretation [x] Patient assessment and monitoring of vital signs [x] Documentation [x] Medication orders and management Subjective Date of service: 10/09/19 Principal diagnosis: Ac. hypoxemic resp failure; ARDS; COVID-19 virus infxn; PNA; Severe sepsis Interval history: Patient is seen today for: Ac. hypoxemic resp failure; ARDS; COVID-19 virus infection; Bilateral pneumonia; Severe sepsis; FANI Seen and examined at bedside; 24hour events reviewed; nursing and respiratory care staff consulted; no adverse overnight events reported to me; resting in bed; maintaining oxygen saturations at 100%, placed back supine yesterday at noon, on norepinephrine at 2mcg with MAP >65. s/p Femoral catheter placed yesterday,tolerated first session of HD yesterday 2L of fluid was removed No fevers, on Fentanyl at 4mcg/kg , Midazolam at 5mg/kg and propofol at 50mcg/kg with elevated triglycerides. Blood tinged NGT output with high residuals Currently on AC-VC 450/30/PEEP 20/FIO2 80% ABG 7.19/61.5/121/23.4 Objective Vital Signs - 12hr 10/08/19 10/08/19 10/08/19 22:00 22:16 22:30 Temperature Pulse Rate 97 H 99 H 98 H Respiratory 30 H 30 H 30 H Rate Blood Pressure 90/63 90/63 90/63 O2 Sat by Pulse 100 99 100 Oximetry 10/08/19 10/08/19 10/08/19 22:46 23:00 23:10 Temperature Pulse Rate 99 H 99 H 98 H Respiratory 30 H 23 30 H Rate Blood Pressure 104/71 104/71 110/71 O2 Sat by Pulse 100 100 100 Oximetry 10/08/19 10/08/19 10/08/19 23:16 23:30 23:46 Temperature Pulse Rate 97 H 98 H 97 H Respiratory 30 H 27 H 30 H Rate Blood Pressure 110/71 110/71 120/74 O2 Sat by Pulse 100 100 100 Oximetry 10/09/19 10/09/19 10/09/19 00:00 00:15 00:16 Temperature 96 F L Pulse Rate 98 H 98 H 97 H Respiratory 30 H 30 H Rate Blood Pressure 120/74 129/70 129/70 O2 Sat by Pulse 100 98 97 Oximetry 10/09/19 10/09/19 10/09/19 00:30 00:46 01:00 Temperature Pulse Rate 98 H 97 H 97 H Respiratory 30 H 30 H 30 H Rate Blood Pressure 129/70 113/65 113/65 O2 Sat by Pulse 98 97 97 Oximetry 10/09/19 10/09/19 10/09/19 01:16 01:30 01:46 Temperature Pulse Rate 97 H 97 H 97 H Respiratory 30 H 30 H 30 H Rate Blood Pressure 129/66 129/66 104/61 O2 Sat by Pulse 98 98 98 Oximetry 10/09/19 10/09/19 10/09/19 02:00 02:10 02:16 Temperature Pulse Rate 97 H 95 H 95 H Respiratory 30 H 30 H 30 H Rate Blood Pressure 104/61 104/61 O2 Sat by Pulse 99 99 100 Oximetry 10/09/19 10/09/19 10/09/19 02:30 02:46 03:00 Temperature Pulse Rate 95 H 95 H 96 H Respiratory 30 H 30 H 30 H Rate Blood Pressure 104/61 97/67 97/67 O2 Sat by Pulse 99 99 99 Oximetry 10/09/19 10/09/19 10/09/19 03:16 03:30 03:46 Temperature Pulse Rate 96 H 93 H 94 H Respiratory 30 H 30 H 30 H Rate Blood Pressure 95/62 95/62 100/64 O2 Sat by Pulse 99 99 100 Oximetry 10/09/19 10/09/19 10/09/19 04:00 04:16 04:20 Temperature 96.7 F L Pulse Rate 94 H 94 H 94 H Respiratory 30 H 30 H 30 H Rate Blood Pressure 100/64 110/62 O2 Sat by Pulse 100 100 99 Oximetry 10/09/19 10/09/19 10/09/19 04:30 04:46 05:00 Temperature Pulse Rate 95 H 95 H 95 H Respiratory 30 H 30 H 30 H Rate Blood Pressure 110/62 109/65 109/65 O2 Sat by Pulse 100 99 99 Oximetry 10/09/19 10/09/19 10/09/19 05:10 05:15 05:22 Temperature Pulse Rate 96 H 96 H 96 H Respiratory 30 H 30 H Rate Blood Pressure 110/61 110/61 O2 Sat by Pulse 99 100 100 Oximetry 10/09/19 10/09/19 10/09/19 05:31 05:38 05:39 Temperature Pulse Rate 94 H 94 H Respiratory 30 H 30 H Rate Blood Pressure 109/65 O2 Sat by Pulse 100 99 Oximetry 10/09/19 10/09/19 10/09/19 05:45 06:01 06:15 Temperature Pulse Rate 95 H 93 H 93 H Respiratory 30 H 30 H 30 H Rate Blood Pressure 99/57 99/57 107/58 O2 Sat by Pulse 100 99 98 Oximetry 10/09/19 10/09/19 10/09/19 06:31 06:45 07:01 Temperature Pulse Rate 94 H 98 H 99 H Respiratory 30 H 28 H 14 Rate Blood Pressure 107/58 115/69 107/58 O2 Sat by Pulse 98 99 99 Oximetry 10/09/19 10/09/19 10/09/19 07:15 07:31 07:45 Temperature Pulse Rate 99 H 103 H 102 H Respiratory 17 16 32 H Rate Blood Pressure 152/81 152/81 141/81 O2 Sat by Pulse 98 99 99 Oximetry 10/09/19 10/09/19 10/09/19 08:00 08:01 08:09 Temperature 97.4 F L Pulse Rate 108 H 109 H Respiratory 23 Rate Blood Pressure 141/81 141/51 O2 Sat by Pulse 95 94 Oximetry 10/09/19 10/09/19 10/09/19 08:15 08:31 08:45 Temperature Pulse Rate 110 H 104 H 101 H Respiratory 30 H 25 H 28 H Rate Blood Pressure 145/82 145/82 102/65 O2 Sat by Pulse 97 96 96 Oximetry 10/09/19 10/09/19 10/09/19 09:01 09:15 09:31 Temperature Pulse Rate 101 H 99 H 99 H Respiratory 30 H 30 H 30 H Rate Blood Pressure 145/82 95/62 95/62 O2 Sat by Pulse 97 96 97 Oximetry Constitutional: appears uncomfortable, other (elderly looking AAF with mildly increased resp effort at rest on mvs, supine) Eyes: non-icteric ENT: other (ETT 24 cm GLYNN, NGT with pinkiish effluent) Neck: supple, no lymphadenopathy, no JVD Effort: mildly labored Ascultation: Bilateral: diminished breath sounds, rales Percussion: Bilateral: not dull Cardiovascular: regular rate and rhythm, other (S1,S2, no murmurs) Gastrointestinal: normoactive bowel sounds, soft, non-tender, non-distended Integumentary: normal Extremities: no cyanosis, no edema, pulses normal, no ischemia or petechiae, other (Femoral HD catheter) Neurologic: other (unable to assess, sedated) Psychiatric: other (unable to assess, sedated) CBC and BMP: 10/10/19 06:15 10/10/19 06:15 ABG, PT/INR, D-dimer: ABG ABG pH 7.196 pH Units (7.350-7.450) L* 10/09/19 04:55 ABG pCO2 61.8 mm Hg 10/09/19 04:55 ABG pO2 121.3 mm Hg (80.0-90.0) H 10/09/19 04:55 ABG O2 Saturation 97.6 % (95.0-99.0) 10/09/19 04:55 PT/INR, D-dimer PT 14.5 Sec. (12.2-14.9) 10/01/19 05:36 INR 1.15 (0.87-1.13) H 10/01/19 05:36 D-Dimer > 49713 ng/mlDDU (0-234) H 10/05/19 12:10 Abnormal lab findings: Abnormal Labs 10/01/19 10/01/19 10/01/19 05:36 05:36 05:36 WBC RBC RDW Plt Count [place] # Seg Neuts % (Manual) Lymphocytes % (Manual) Nucleated RBC % Seg Neutrophils # Seg Neutrophils # Man Lymphocytes # (Manual) Monocytes # (Manual) INR 1.15 H D-Dimer 1648.23 H ABG pH ABG pO2 ABG HCO3 ABG O2 Saturation ABG Base Excess ABG Hemoglobin Oxyhemoglobin Sodium Potassium Chloride Carbon Dioxide BUN Creatinine Glucose 424 H POC Glucose Lactic Acid Calcium Phosphorus Magnesium Ferritin 1745.0 H AST ALT Alkaline Phosphatase Lactate Dehydrogenase 822 H C-Reactive Protein 15.10 H NT-Pro-B Natriuret Pep Total Protein Albumin Triglycerides Urine WBC (Auto) Urine Creatinine Urine Total Protein Coronavirus (PCR) 10/01/19 10/01/19 10/01/19 05:36 05:36 06:31 WBC 12.8 H RBC RDW Plt Count [place] # Seg Neuts % (Manual) 93.0 H Lymphocytes % (Manual) 2.0 L Nucleated RBC % Seg Neutrophils # Seg Neutrophils # Man 11.9 H Lymphocytes # (Manual) 0.3 L Monocytes # (Manual) INR D-Dimer ABG pH ABG pO2 ABG HCO3 ABG O2 Saturation ABG Base Excess ABG Hemoglobin Oxyhemoglobin Sodium Potassium Chloride Carbon Dioxide 13 L BUN 34 H Creatinine 1.4 H Glucose 413 H POC Glucose Lactic Acid 7.20 H* Calcium Phosphorus Magnesium Ferritin AST 54 H ALT 64 H Alkaline Phosphatase Lactate Dehydrogenase C-Reactive Protein NT-Pro-B Natriuret Pep Total Protein Albumin 3.4 L Triglycerides Urine WBC (Auto) Urine Creatinine Urine Total Protein Coronavirus (PCR) 10/01/19 10/01/19 10/01/19 09:10 10:05 12:24 WBC RBC RDW Plt Count [place] # Seg Neuts % (Manual) Lymphocytes % (Manual) Nucleated RBC % Seg Neutrophils # Seg Neutrophils # Man Lymphocytes # (Manual) Monocytes # (Manual) INR D-Dimer 1957.06 H ABG pH ABG pO2 ABG HCO3 ABG O2 Saturation ABG Base Excess ABG Hemoglobin Oxyhemoglobin Sodium Potassium Chloride Carbon Dioxide BUN Creatinine Glucose POC Glucose 354 H Lactic Acid Calcium Phosphorus Magnesium Ferritin AST ALT Alkaline Phosphatase Lactate Dehydrogenase C-Reactive Protein NT-Pro-B Natriuret Pep Total Protein Albumin Triglycerides Urine WBC (Auto) Urine Creatinine 179.4 H Urine Total Protein Coronavirus (PCR) 10/01/19 10/01/19 10/01/19 12:24 12:24 12:45 WBC RBC RDW Plt Count [place] # Seg Neuts % (Manual) Lymphocytes % (Manual) Nucleated RBC % Seg Neutrophils # Seg Neutrophils # Man Lymphocytes # (Manual) Monocytes # (Manual) INR D-Dimer ABG pH ABG pO2 ABG HCO3 ABG O2 Saturation ABG Base Excess ABG Hemoglobin Oxyhemoglobin Sodium Potassium Chloride Carbon Dioxide BUN Creatinine Glucose 346 H POC Glucose Lactic Acid Calcium Phosphorus 4.70 H Magnesium 2.50 H Ferritin 1646.0 H AST ALT Alkaline Phosphatase Lactate Dehydrogenase 766 H C-Reactive Protein 18.60 H NT-Pro-B Natriuret Pep 1525 H Total Protein Albumin Triglycerides Urine WBC (Auto) Urine Creatinine Urine Total Protein Coronavirus (PCR) 10/01/19 10/01/19 10/01/19 14:30 17:20 18:15 WBC RBC RDW Plt Count [place] # Seg Neuts % (Manual) Lymphocytes % (Manual) Nucleated RBC % Seg Neutrophils # Seg Neutrophils # Man Lymphocytes # (Manual) Monocytes # (Manual) INR D-Dimer ABG pH 7.263 L 7.289 L ABG pO2 60.7 L 52.1 L ABG HCO3 ABG O2 Saturation 88.2 L 83.2 L ABG Base Excess -6.4 L -4.8 L ABG Hemoglobin 10.5 L Oxyhemoglobin 86.6 L 81.4 L Sodium Potassium Chloride Carbon Dioxide BUN Creatinine Glucose POC Glucose 299 H Lactic Acid Calcium Phosphorus Magnesium Ferritin AST ALT Alkaline Phosphatase Lactate Dehydrogenase C-Reactive Protein NT-Pro-B Natriuret Pep Total Protein Albumin Triglycerides Urine WBC (Auto) Urine Creatinine Urine Total Protein Coronavirus (PCR) 10/01/19 10/01/19 10/01/19 21:08 21:35 Unknown WBC RBC RDW Plt Count [place] # Seg Neuts % (Manual) Lymphocytes % (Manual) Nucleated RBC % Seg Neutrophils # Seg Neutrophils # Man Lymphocytes # (Manual) Monocytes # (Manual) INR D-Dimer ABG pH 7.327 L ABG pO2 75.1 L ABG HCO3 ABG O2 Saturation 94.5 L ABG Base Excess -4.4 L ABG Hemoglobin Oxyhemoglobin 92.8 L Sodium Potassium Chloride Carbon Dioxide BUN Creatinine Glucose POC Glucose 266 H Lactic Acid Calcium Phosphorus Magnesium Ferritin AST ALT Alkaline Phosphatase Lactate Dehydrogenase C-Reactive Protein NT-Pro-B Natriuret Pep Total Protein Albumin Triglycerides Urine WBC (Auto) Urine Creatinine Urine Total Protein Coronavirus (PCR) Positive A 10/02/19 10/02/19 10/02/19 01:23 03:55 05:18 WBC 17.8 H RBC RDW Plt Count [place] # Seg Neuts % (Manual) 93.0 H Lymphocytes % (Manual) 5.0 L Nucleated RBC % 1.0 H Seg Neutrophils # Seg Neutrophils # Man 16.6 H Lymphocytes # (Manual) 0.9 L Monocytes # (Manual) INR D-Dimer ABG pH 7.308 L ABG pO2 129.3 H ABG HCO3 ABG O2 Saturation ABG Base Excess -4.9 L ABG Hemoglobin 16.1 H Oxyhemoglobin Sodium Potassium Chloride Carbon Dioxide BUN Creatinine Glucose POC Glucose 291 H Lactic Acid Calcium Phosphorus Magnesium Ferritin AST ALT Alkaline Phosphatase Lactate Dehydrogenase C-Reactive Protein NT-Pro-B Natriuret Pep Total Protein Albumin Triglycerides Urine WBC (Auto) Urine Creatinine Urine Total Protein Coronavirus (PCR) 10/02/19 10/02/19 10/02/19 05:18 07:15 15:28 WBC RBC RDW Plt Count [place] # Seg Neuts % (Manual) Lymphocytes % (Manual) Nucleated RBC % Seg Neutrophils # Seg Neutrophils # Man Lymphocytes # (Manual) Monocytes # (Manual) INR D-Dimer ABG pH ABG pO2 ABG HCO3 ABG O2 Saturation ABG Base Excess ABG Hemoglobin Oxyhemoglobin Sodium Potassium Chloride 111.1 H Carbon Dioxide 19 L BUN 44 H Creatinine 2.4 H D Glucose 227 H POC Glucose 196 H Lactic Acid Calcium Phosphorus Magnesium Ferritin AST ALT Alkaline Phosphatase Lactate Dehydrogenase C-Reactive Protein NT-Pro-B Natriuret Pep Total Protein Albumin Triglycerides Urine WBC (Auto) Urine Creatinine 336.4 H Urine Total Protein Coronavirus (PCR) 10/02/19 10/03/19 10/03/19 17:57 00:32 04:02 WBC 17.2 H RBC RDW Plt Count [place] # Seg Neuts % (Manual) 95.0 H Lymphocytes % (Manual) 3.0 L Nucleated RBC % 2.0 H Seg Neutrophils # Seg Neutrophils # Man 16.3 H Lymphocytes # (Manual) 0.5 L Monocytes # (Manual) INR D-Dimer ABG pH ABG pO2 ABG HCO3 ABG O2 Saturation ABG Base Excess ABG Hemoglobin Oxyhemoglobin Sodium Potassium Chloride Carbon Dioxide BUN Creatinine Glucose POC Glucose 137 H 184 H Lactic Acid Calcium Phosphorus Magnesium Ferritin AST ALT Alkaline Phosphatase Lactate Dehydrogenase C-Reactive Protein NT-Pro-B Natriuret Pep Total Protein Albumin Triglycerides Urine WBC (Auto) Urine Creatinine Urine Total Protein Coronavirus (PCR) 10/03/19 10/03/19 10/03/19 04:02 04:26 05:20 WBC RBC RDW Plt Count [place] # Seg Neuts % (Manual) Lymphocytes % (Manual) Nucleated RBC % Seg Neutrophils # Seg Neutrophils # Man Lymphocytes # (Manual) Monocytes # (Manual) INR D-Dimer ABG pH 7.336 L ABG pO2 70.1 L ABG HCO3 ABG O2 Saturation 94.0 L ABG Base Excess -3.8 L ABG Hemoglobin Oxyhemoglobin 92.4 L Sodium Potassium Chloride 108.9 H Carbon Dioxide 19 L BUN 64 H Creatinine 2.1 H Glucose 212 H POC Glucose 197 H Lactic Acid Calcium Phosphorus Magnesium Ferritin AST ALT Alkaline Phosphatase Lactate Dehydrogenase C-Reactive Protein NT-Pro-B Natriuret Pep Total Protein Albumin Triglycerides Urine WBC (Auto) Urine Creatinine Urine Total Protein Coronavirus (PCR) 10/03/19 10/03/19 10/03/19 11:22 11:58 18:44 WBC RBC RDW Plt Count [place] # Seg Neuts % (Manual) Lymphocytes % (Manual) Nucleated RBC % Seg Neutrophils # Seg Neutrophils # Man Lymphocytes # (Manual) Monocytes # (Manual) INR D-Dimer ABG pH ABG pO2 ABG HCO3 ABG O2 Saturation ABG Base Excess ABG Hemoglobin Oxyhemoglobin Sodium Potassium Chloride Carbon Dioxide BUN Creatinine Glucose POC Glucose 248 H 245 H 324 H Lactic Acid Calcium Phosphorus Magnesium Ferritin AST ALT Alkaline Phosphatase Lactate Dehydrogenase C-Reactive Protein NT-Pro-B Natriuret Pep Total Protein Albumin Triglycerides Urine WBC (Auto) Urine Creatinine Urine Total Protein Coronavirus (PCR) 10/03/19 10/04/19 10/04/19 23:51 03:50 05:35 WBC RBC RDW Plt Count [place] # Seg Neuts % (Manual) Lymphocytes % (Manual) Nucleated RBC % Seg Neutrophils # Seg Neutrophils # Man Lymphocytes # (Manual) Monocytes # (Manual) INR D-Dimer ABG pH ABG pO2 129.4 H ABG HCO3 ABG O2 Saturation ABG Base Excess -3.5 L ABG Hemoglobin Oxyhemoglobin Sodium Potassium Chloride Carbon Dioxide BUN Creatinine Glucose POC Glucose 182 H 177 H Lactic Acid Calcium Phosphorus Magnesium Ferritin AST ALT Alkaline Phosphatase Lactate Dehydrogenase C-Reactive Protein NT-Pro-B Natriuret Pep Total Protein Albumin Triglycerides Urine WBC (Auto) Urine Creatinine Urine Total Protein Coronavirus (PCR) 10/04/19 10/04/19 10/04/19 11:39 16:30 16:30 WBC 21.2 H RBC RDW 16.0 H Plt Count 93 L [place] # Seg Neuts % (Manual) 92.0 H Lymphocytes % (Manual) 3.0 L Nucleated RBC % 4.0 H Seg Neutrophils # Seg Neutrophils # Man 19.5 H Lymphocytes # (Manual) 0.6 L Monocytes # (Manual) 1.1 H INR D-Dimer ABG pH ABG pO2 ABG HCO3 ABG O2 Saturation ABG Base Excess ABG Hemoglobin Oxyhemoglobin Sodium Potassium Chloride 109.0 H Carbon Dioxide 21 L BUN 94 H Creatinine 2.3 H Glucose 345 H POC Glucose 265 H Lactic Acid Calcium Phosphorus Magnesium Ferritin AST ALT Alkaline Phosphatase Lactate Dehydrogenase C-Reactive Protein NT-Pro-B Natriuret Pep Total Protein Albumin Triglycerides Urine WBC (Auto) Urine Creatinine Urine Total Protein Coronavirus (PCR) 10/04/19 10/04/19 10/04/19 18:04 18:50 23:19 WBC RBC RDW Plt Count [place] # Seg Neuts % (Manual) Lymphocytes % (Manual) Nucleated RBC % Seg Neutrophils # Seg Neutrophils # Man Lymphocytes # (Manual) Monocytes # (Manual) INR D-Dimer ABG pH 7.322 L ABG pO2 183.3 H ABG HCO3 18.1 L ABG O2 Saturation 99.1 H ABG Base Excess -7.2 L ABG Hemoglobin 11.8 L Oxyhemoglobin Sodium Potassium Chloride Carbon Dioxide BUN Creatinine Glucose POC Glucose 333 H 366 H Lactic Acid Calcium Phosphorus Magnesium Ferritin AST ALT Alkaline Phosphatase Lactate Dehydrogenase C-Reactive Protein NT-Pro-B Natriuret Pep Total Protein Albumin Triglycerides Urine WBC (Auto) Urine Creatinine Urine Total Protein Coronavirus (PCR) 10/05/19 10/05/19 10/05/19 04:00 05:05 06:00 WBC RBC RDW Plt Count [place] # Seg Neuts % (Manual) Lymphocytes % (Manual) Nucleated RBC % Seg Neutrophils # Seg Neutrophils # Man Lymphocytes # (Manual) Monocytes # (Manual) INR D-Dimer ABG pH 7.223 L ABG pO2 93.7 H ABG HCO3 19.4 L ABG O2 Saturation ABG Base Excess -8.3 L ABG Hemoglobin Oxyhemoglobin Sodium Potassium Chloride Carbon Dioxide BUN Creatinine Glucose POC Glucose 362 H Lactic Acid Calcium Phosphorus Magnesium Ferritin AST ALT Alkaline Phosphatase Lactate Dehydrogenase C-Reactive Protein NT-Pro-B Natriuret Pep Total Protein Albumin Triglycerides 518 H Urine WBC (Auto) Urine Creatinine Urine Total Protein Coronavirus (PCR) 10/05/19 10/05/19 10/05/19 06:00 06:00 10:16 WBC 18.6 H RBC RDW 16.6 H Plt Count 78 L [place] # Seg Neuts % (Manual) 95.0 H Lymphocytes % (Manual) 0 L Nucleated RBC % 4.0 H Seg Neutrophils # Seg Neutrophils # Man 17.7 H Lymphocytes # (Manual) 0.0 L Monocytes # (Manual) INR D-Dimer ABG pH ABG pO2 ABG HCO3 ABG O2 Saturation ABG Base Excess ABG Hemoglobin Oxyhemoglobin Sodium Potassium 5.2 H Chloride 110.9 H Carbon Dioxide 17 L BUN 101 H Creatinine 3.2 H Glucose 368 H POC Glucose Lactic Acid Calcium Phosphorus Magnesium Ferritin AST ALT Alkaline Phosphatase Lactate Dehydrogenase C-Reactive Protein NT-Pro-B Natriuret Pep Total Protein Albumin Triglycerides Urine WBC (Auto) Urine Creatinine 179.4 H Urine Total Protein 66 H Coronavirus (PCR) 10/05/19 10/05/19 10/05/19 10:17 11:43 12:10 WBC RBC RDW Plt Count [place] # Seg Neuts % (Manual) Lymphocytes % (Manual) Nucleated RBC % Seg Neutrophils # Seg Neutrophils # Man Lymphocytes # (Manual) Monocytes # (Manual) INR D-Dimer > 55274 H ABG pH ABG pO2 ABG HCO3 ABG O2 Saturation ABG Base Excess ABG Hemoglobin Oxyhemoglobin Sodium Potassium Chloride Carbon Dioxide BUN Creatinine Glucose POC Glucose 328 H Lactic Acid Calcium Phosphorus Magnesium Ferritin AST ALT Alkaline Phosphatase Lactate Dehydrogenase C-Reactive Protein NT-Pro-B Natriuret Pep Total Protein Albumin Triglycerides Urine WBC (Auto) 25.0 H Urine Creatinine Urine Total Protein Coronavirus (PCR) 10/05/19 10/05/19 10/06/19 17:35 17:57 00:46 WBC RBC RDW Plt Count [place] # Seg Neuts % (Manual) Lymphocytes % (Manual) Nucleated RBC % Seg Neutrophils # Seg Neutrophils # Man Lymphocytes # (Manual) Monocytes # (Manual) INR D-Dimer ABG pH ABG pO2 ABG HCO3 ABG O2 Saturation ABG Base Excess -3.8 L ABG Hemoglobin Oxyhemoglobin Sodium Potassium Chloride Carbon Dioxide BUN Creatinine Glucose POC Glucose 292 H 295 H Lactic Acid Calcium Phosphorus Magnesium Ferritin AST ALT Alkaline Phosphatase Lactate Dehydrogenase C-Reactive Protein NT-Pro-B Natriuret Pep Total Protein Albumin Triglycerides Urine WBC (Auto) Urine Creatinine Urine Total Protein Coronavirus (PCR) 10/06/19 10/06/19 10/06/19 03:32 06:07 06:07 WBC 20.5 H RBC RDW 15.6 H Plt Count 79 L [place] # 0.9 H Seg Neuts % (Manual) 91.0 H Lymphocytes % (Manual) 0 L Nucleated RBC % 2.0 H Seg Neutrophils # 18.4 H Seg Neutrophils # Man 18.7 H Lymphocytes # (Manual) 0.0 L Monocytes # (Manual) INR D-Dimer ABG pH 7.339 L ABG pO2 ABG HCO3 ABG O2 Saturation ABG Base Excess -2.4 L ABG Hemoglobin 11.5 L Oxyhemoglobin 94.5 L Sodium 147 H Potassium Chloride 108.6 H Carbon Dioxide BUN 102 H Creatinine 3.2 H Glucose 305 H POC Glucose Lactic Acid Calcium 7.8 L Phosphorus Magnesium Ferritin AST ALT Alkaline Phosphatase Lactate Dehydrogenase C-Reactive Protein NT-Pro-B Natriuret Pep Total Protein Albumin Triglycerides Urine WBC (Auto) Urine Creatinine Urine Total Protein Coronavirus (PCR) 10/06/19 10/06/19 10/06/19 06:07 06:33 10:25 WBC RBC RDW Plt Count [place] # Seg Neuts % (Manual) Lymphocytes % (Manual) Nucleated RBC % Seg Neutrophils # Seg Neutrophils # Man Lymphocytes # (Manual) Monocytes # (Manual) INR D-Dimer ABG pH ABG pO2 ABG HCO3 ABG O2 Saturation ABG Base Excess ABG Hemoglobin Oxyhemoglobin Sodium Potassium Chloride Carbon Dioxide BUN Creatinine Glucose POC Glucose 310 H 304 H Lactic Acid Calcium Phosphorus Magnesium Ferritin AST ALT Alkaline Phosphatase Lactate Dehydrogenase C-Reactive Protein NT-Pro-B Natriuret Pep Total Protein Albumin Triglycerides 467 H Urine WBC (Auto) Urine Creatinine Urine Total Protein Coronavirus (PCR) 10/06/19 10/06/19 10/06/19 16:20 16:51 Unknown WBC RBC RDW Plt Count [place] # Seg Neuts % (Manual) Lymphocytes % (Manual) Nucleated RBC % Seg Neutrophils # Seg Neutrophils # Man Lymphocytes # (Manual) Monocytes # (Manual) INR D-Dimer ABG pH 7.241 L 7.295 L ABG pO2 49.7 L 48.4 L ABG HCO3 ABG O2 Saturation 79.5 L 81.0 L ABG Base Excess -2.8 L -2.7 L ABG Hemoglobin 11.9 L Oxyhemoglobin 77.4 L 79.2 L Sodium Potassium Chloride Carbon Dioxide BUN Creatinine Glucose POC Glucose 346 H Lactic Acid Calcium Phosphorus Magnesium Ferritin AST ALT Alkaline Phosphatase Lactate Dehydrogenase C-Reactive Protein NT-Pro-B Natriuret Pep Total Protein Albumin Triglycerides Urine WBC (Auto) Urine Creatinine Urine Total Protein Coronavirus (PCR) 10/07/19 10/07/19 10/07/19 00:10 05:00 05:00 WBC 21.1 H RBC RDW 15.3 H Plt Count 63 L [place] # Seg Neuts % (Manual) 93.0 H Lymphocytes % (Manual) 1.0 L Nucleated RBC % 10.0 H Seg Neutrophils # Seg Neutrophils # Man 19.6 H Lymphocytes # (Manual) 0.2 L Monocytes # (Manual) INR D-Dimer ABG pH ABG pO2 ABG HCO3 ABG O2 Saturation ABG Base Excess ABG Hemoglobin Oxyhemoglobin Sodium 148 H Potassium Chloride Carbon Dioxide BUN 130 H Creatinine 4.2 H Glucose 228 H POC Glucose 227 H Lactic Acid Calcium 8.1 L Phosphorus Magnesium Ferritin AST ALT Alkaline Phosphatase Lactate Dehydrogenase C-Reactive Protein NT-Pro-B Natriuret Pep Total Protein Albumin Triglycerides Urine WBC (Auto) Urine Creatinine Urine Total Protein Coronavirus (PCR) 10/07/19 10/07/19 10/07/19 06:18 08:55 11:04 WBC RBC RDW Plt Count [place] # Seg Neuts % (Manual) Lymphocytes % (Manual) Nucleated RBC % Seg Neutrophils # Seg Neutrophils # Man Lymphocytes # (Manual) Monocytes # (Manual) INR D-Dimer ABG pH 7.342 L ABG pO2 170.9 H ABG HCO3 ABG O2 Saturation ABG Base Excess -2.9 L ABG Hemoglobin 10.7 L Oxyhemoglobin Sodium 149 H Potassium Chloride 107.7 H Carbon Dioxide BUN 130 H Creatinine 3.8 H Glucose 220 H POC Glucose 223 H Lactic Acid Calcium 8.1 L Phosphorus Magnesium Ferritin AST 136 H ALT 109 H Alkaline Phosphatase 263 H Lactate Dehydrogenase C-Reactive Protein NT-Pro-B Natriuret Pep Total Protein 4.8 L Albumin 2.7 L Triglycerides Urine WBC (Auto) Urine Creatinine Urine Total Protein Coronavirus (PCR) 10/07/19 10/07/19 10/07/19 11:56 19:33 Unknown WBC RBC RDW Plt Count [place] # Seg Neuts % (Manual) Lymphocytes % (Manual) Nucleated RBC % Seg Neutrophils # Seg Neutrophils # Man Lymphocytes # (Manual) Monocytes # (Manual) INR D-Dimer ABG pH 7.314 L ABG pO2 281.9 H ABG HCO3 ABG O2 Saturation 99.4 H ABG Base Excess ABG Hemoglobin 10.7 L Oxyhemoglobin Sodium Potassium Chloride Carbon Dioxide BUN Creatinine Glucose POC Glucose 225 H 198 H Lactic Acid Calcium Phosphorus Magnesium Ferritin AST ALT Alkaline Phosphatase Lactate Dehydrogenase C-Reactive Protein NT-Pro-B Natriuret Pep Total Protein Albumin Triglycerides Urine WBC (Auto) Urine Creatinine Urine Total Protein Coronavirus (PCR) 10/08/19 10/08/19 10/08/19 00:30 01:16 04:20 WBC 23.4 H RBC 3.45 L RDW 15.8 H Plt Count 67 L [place] # Seg Neuts % (Manual) 96.0 H Lymphocytes % (Manual) 1.5 L Nucleated RBC % 3.0 H Seg Neutrophils # Seg Neutrophils # Man 22.5 H Lymphocytes # (Manual) 0.4 L Monocytes # (Manual) INR D-Dimer ABG pH 7.309 L ABG pO2 305.9 H ABG HCO3 ABG O2 Saturation ABG Base Excess -4.1 L ABG Hemoglobin Oxyhemoglobin Sodium Potassium Chloride Carbon Dioxide BUN Creatinine Glucose POC Glucose 212 H Lactic Acid Calcium Phosphorus Magnesium Ferritin AST ALT Alkaline Phosphatase Lactate Dehydrogenase C-Reactive Protein NT-Pro-B Natriuret Pep Total Protein Albumin Triglycerides Urine WBC (Auto) Urine Creatinine Urine Total Protein Coronavirus (PCR) 10/08/19 10/08/19 10/08/19 05:45 05:45 05:45 WBC 24.2 H RBC 3.47 L RDW 15.7 H Plt Count 67 L [place] # Seg Neuts % (Manual) 97.0 H Lymphocytes % (Manual) 0 L Nucleated RBC % 6.0 H Seg Neutrophils # Seg Neutrophils # Man 23.5 H Lymphocytes # (Manual) 0.0 L Monocytes # (Manual) INR D-Dimer ABG pH ABG pO2 ABG HCO3 ABG O2 Saturation ABG Base Excess ABG Hemoglobin Oxyhemoglobin Sodium 148 H Potassium Chloride Carbon Dioxide BUN 137 H Creatinine 3.5 H Glucose 183 H POC Glucose Lactic Acid Calcium Phosphorus Magnesium Ferritin AST ALT Alkaline Phosphatase Lactate Dehydrogenase C-Reactive Protein NT-Pro-B Natriuret Pep Total Protein Albumin Triglycerides 428 H Urine WBC (Auto) Urine Creatinine Urine Total Protein Coronavirus (PCR) 10/08/19 10/08/19 10/08/19 06:06 18:32 21:41 WBC RBC RDW Plt Count [place] # Seg Neuts % (Manual) Lymphocytes % (Manual) Nucleated RBC % Seg Neutrophils # Seg Neutrophils # Man Lymphocytes # (Manual) Monocytes # (Manual) INR D-Dimer ABG pH ABG pO2 ABG HCO3 ABG O2 Saturation ABG Base Excess ABG Hemoglobin Oxyhemoglobin Sodium Potassium Chloride Carbon Dioxide BUN Creatinine Glucose POC Glucose 192 H 227 H 214 H Lactic Acid Calcium Phosphorus Magnesium Ferritin AST ALT Alkaline Phosphatase Lactate Dehydrogenase C-Reactive Protein NT-Pro-B Natriuret Pep Total Protein Albumin Triglycerides Urine WBC (Auto) Urine Creatinine Urine Total Protein Coronavirus (PCR) 10/09/19 10/09/19 10/09/19 00:43 04:55 05:30 WBC RBC RDW Plt Count [place] # Seg Neuts % (Manual) Lymphocytes % (Manual) Nucleated RBC % Seg Neutrophils # Seg Neutrophils # Man Lymphocytes # (Manual) Monocytes # (Manual) INR D-Dimer ABG pH 7.196 L* ABG pO2 121.3 H ABG HCO3 ABG O2 Saturation ABG Base Excess -4.9 L ABG Hemoglobin 9.0 L Oxyhemoglobin Sodium Potassium Chloride Carbon Dioxide BUN Creatinine Glucose POC Glucose 206 H Lactic Acid Calcium Phosphorus Magnesium Ferritin AST ALT Alkaline Phosphatase Lactate Dehydrogenase C-Reactive Protein NT-Pro-B Natriuret Pep Total Protein Albumin Triglycerides 427 H Urine WBC (Auto) Urine Creatinine Urine Total Protein Coronavirus (PCR) 10/09/19 06:22 WBC RBC RDW Plt Count [place] # Seg Neuts % (Manual) Lymphocytes % (Manual) Nucleated RBC % Seg Neutrophils # Seg Neutrophils # Man Lymphocytes # (Manual) Monocytes # (Manual) INR D-Dimer ABG pH ABG pO2 ABG HCO3 ABG O2 Saturation ABG Base Excess ABG Hemoglobin Oxyhemoglobin Sodium Potassium Chloride Carbon Dioxide BUN Creatinine Glucose POC Glucose 196 H Lactic Acid Calcium Phosphorus Magnesium Ferritin AST ALT Alkaline Phosphatase Lactate Dehydrogenase C-Reactive Protein NT-Pro-B Natriuret Pep Total Protein Albumin Triglycerides Urine WBC (Auto) Urine Creatinine Urine Total Protein Coronavirus (PCR) Chest x-ray: image reviewed Allied health notes reviewed: RT
[2019-10-09] MEDS: APIXABAN 5 MG TAB PO SCH ×3 (10:33→23:15)
[2019-10-09] MEDS: ASCORBIC ACID 500 MG TAB PO SCH ×2 (10:41→23:16)
[2019-10-09] MEDS: ZINC SULFATE 220 MG CAP PO SCH ×2 (10:42→23:16)
[2019-10-09 11:21] LABS: Calcium 8.9 mg/dL (8.4-10.2)
[2019-10-09] MEDS ORDERED: SODIUM CHLORIDE 0.9% 100 ML IV PRN ×2 (11:29→11:48)
[2019-10-09] MEDS: PANTOPRAZOLE 40 MG INJ IV SCH ×2 (11:36→23:15)
[2019-10-09] MEDS: METOCLOPRAMIDE 10 MG/2 ML INJ IV SCH ×2 (11:42→18:27)
--- NOTE | 2019-10-09 11:48 | Progress Note ---
Assessment and Plan - Patient Problems (1) Acute kidney failure with tubular necrosis Current Visit: Yes Status: Acute Plan to address problem: Tolerated HD well yesterday. Labs reviewed. Chest Xray concerning for worsening pneumonia process. Will plan for session of isolated UF treatment today, (2) Acute respiratory failure with hypoxia Current Visit: Yes Status: Acute Plan to address problem: Vent management per pulmonary team. (3) Hypernatremia Current Visit: Yes Status: Acute Plan to address problem: Will manage with HD. (4) Metabolic acidosis Current Visit: Yes Status: Acute Plan to address problem: Will manage with HD. Monitor closely. (5) Pneumonia due to severe acute respiratory syndrome coronavirus 2 (SARS-CoV-2) Current Visit: Yes Status: Acute Plan to address problem: Management per infectious disease team and pulmonology. Subjective Date of service: 10/09/19 Principal diagnosis: Ac. hypoxemic resp failure; ARDS; COVID-19 virus infxn; PNA; Severe sepsis Interval history: Patient is now down to FiO2 of 65%. Blood pressures remain labile this am but she is currently off levophed. Was able to remove 2.0 L UF yesterday with HD treatment. Labs reviewed. Objective - Vital Signs Vital signs: Vital Signs - 12hr 10/08/19 10/09/19 10/09/19 23:46 00:00 00:15 Temperature 96 F L Pulse Rate 97 H 98 H 98 H Respiratory 30 H 30 H Rate Blood Pressure 120/74 120/74 129/70 O2 Sat by Pulse 100 100 98 Oximetry 10/09/19 10/09/19 10/09/19 00:16 00:30 00:46 Temperature Pulse Rate 97 H 98 H 97 H Respiratory 30 H 30 H 30 H Rate Blood Pressure 129/70 129/70 113/65 O2 Sat by Pulse 97 98 97 Oximetry 10/09/19 10/09/19 10/09/19 01:00 01:16 01:30 Temperature Pulse Rate 97 H 97 H 97 H Respiratory 30 H 30 H 30 H Rate Blood Pressure 113/65 129/66 129/66 O2 Sat by Pulse 97 98 98 Oximetry 10/09/19 10/09/19 10/09/19 01:46 02:00 02:10 Temperature Pulse Rate 97 H 97 H 95 H Respiratory 30 H 30 H 30 H Rate Blood Pressure 104/61 104/61 O2 Sat by Pulse 98 99 99 Oximetry 07/14/20 07/14/20 07/14/20 02:16 02:30 02:46 Temperature Pulse Rate 95 H 95 H 95 H Respiratory 30 H 30 H 30 H Rate Blood Pressure 104/61 104/61 97/67 O2 Sat by Pulse 100 99 99 Oximetry 10/09/19 10/09/19 10/09/19 03:00 03:16 03:30 Temperature Pulse Rate 96 H 96 H 93 H Respiratory 30 H 30 H 30 H Rate Blood Pressure 97/67 95/62 95/62 O2 Sat by Pulse 99 99 99 Oximetry 10/09/19 10/09/19 10/09/19 03:46 04:00 04:16 Temperature 96.7 F L Pulse Rate 94 H 94 H 94 H Respiratory 30 H 30 H 30 H Rate Blood Pressure 100/64 100/64 110/62 O2 Sat by Pulse 100 100 100 Oximetry 10/09/19 10/09/19 10/09/19 04:20 04:30 04:46 Temperature Pulse Rate 94 H 95 H 95 H Respiratory 30 H 30 H 30 H Rate Blood Pressure 110/62 109/65 O2 Sat by Pulse 99 100 99 Oximetry 10/09/19 10/09/19 10/09/19 05:00 05:10 05:15 Temperature Pulse Rate 95 H 96 H 96 H Respiratory 30 H 30 H 30 H Rate Blood Pressure 109/65 110/61 O2 Sat by Pulse 99 99 100 Oximetry 10/09/19 10/09/19 10/09/19 05:22 05:31 05:38 Temperature Pulse Rate 96 H 94 H 94 H Respiratory 30 H Rate Blood Pressure 110/61 109/65 O2 Sat by Pulse 100 100 Oximetry 10/09/19 10/09/19 10/09/19 05:39 05:45 06:01 Temperature Pulse Rate 95 H 93 H Respiratory 30 H 30 H 30 H Rate Blood Pressure 99/57 99/57 O2 Sat by Pulse 99 100 99 Oximetry 10/09/19 10/09/19 10/09/19 06:15 06:31 06:45 Temperature Pulse Rate 93 H 94 H 98 H Respiratory 30 H 30 H 28 H Rate Blood Pressure 107/58 107/58 115/69 O2 Sat by Pulse 98 98 99 Oximetry 10/09/19 10/09/19 10/09/19 07:01 07:15 07:31 Temperature Pulse Rate 99 H 99 H 103 H Respiratory 14 17 16 Rate Blood Pressure 107/58 152/81 152/81 O2 Sat by Pulse 99 98 99 Oximetry 10/09/19 10/09/19 10/09/19 07:45 08:00 08:01 Temperature 97.4 F L Pulse Rate 102 H 104 H 108 H Respiratory 32 H 30 H 23 Rate Blood Pressure 141/81 141/81 O2 Sat by Pulse 99 99 95 Oximetry 10/09/19 10/09/19 10/09/19 08:09 08:15 08:31 Temperature Pulse Rate 109 H 110 H 104 H Respiratory 30 H 25 H Rate Blood Pressure 141/51 145/82 145/82 O2 Sat by Pulse 94 97 96 Oximetry 10/09/19 10/09/19 10/09/19 08:45 09:01 09:15 Temperature Pulse Rate 101 H 101 H 99 H Respiratory 28 H 30 H 30 H Rate Blood Pressure 102/65 145/82 95/62 O2 Sat by Pulse 96 97 96 Oximetry 10/09/19 10/09/19 10/09/19 09:31 09:45 10:01 Temperature Pulse Rate 99 H 98 H 100 H Respiratory 30 H 30 H 30 H Rate Blood Pressure 95/62 112/62 95/62 O2 Sat by Pulse 97 97 97 Oximetry 10/09/19 10/09/19 10/09/19 10:15 10:31 10:45 Temperature Pulse Rate 99 H 99 H 99 H Respiratory 30 H 30 H 30 H Rate Blood Pressure 107/60 107/60 106/59 O2 Sat by Pulse 98 99 99 Oximetry 10/09/19 11:01 Temperature Pulse Rate 98 H Respiratory 30 H Rate Blood Pressure 106/59 O2 Sat by Pulse 99 Oximetry - General Appearance General appearance: chronically ill, sedated on ventilator, intubated, frail EENT: ATNC Neck: no JVD Respiratory: Present: Decreased Breath Sounds Cardiology: regular Gastrointestinal: normal Neurologic: other (unresponsive ) - Lab 10/08/19 05:45 10/09/19 05:30 Most recent lab results ABG pH 7.196 pH Units (7.350-7.450) L* 10/09/19 04:55 ABG pCO2 61.8 mm Hg 10/09/19 04:55 ABG pO2 121.3 mm Hg (80.0-90.0) H 10/09/19 04:55 ABG HCO3 23.4 mmol/L (20.0-26.0) 10/09/19 04:55 ABG O2 Saturation 97.6 % (95.0-99.0) 10/09/19 04:55 Calcium 8.9 mg/dL (8.4-10.2) 10/09/19 05:30 Phosphorus 4.70 mg/dL (2.5-4.5) H 10/01/19 12:45 Magnesium 2.50 mg/dL (1.7-2.3) H 10/01/19 12:45 Urine Creatinine 179.4 mg/dL (0.1-20.0) H 10/05/19 10:16 Urine Sodium 10 mmol/L 10/05/19 10:16 Urine Total Protein 66 mg/dL (5-11.8) H 10/05/19 10:16 - Imaging Chest x-ray: report reviewed - Allied health notes Allied health notes reviewed: nursing Medications & Allergies - Medications Allergies/Adverse Reactions: Allergies No Known Allergies Allergy (Verified 10/01/19 06:31) Active Medications: Generic Name Dose Route Start Last Admin Trade Name Freq PRN Reason Stop Dose Admin Acetaminophen 650 mg 10/01/19 09:10 Tylenol PO Q6H PRN Pain MILD(1-3)/Fever >100.5/PALOMARES Albumin Human 25 gm 10/07/19 15:26 10/08/19 10:46 Alburx 25% (Albumin) IV 25 gm KINJAL PRN Administration Hypotension Albuterol 2.5 mg 10/01/19 09:10 Proventil IH Q3HRT PRN Shortness Of Breath Lipase/Protease/Amylase 1 each 10/02/19 11:44 Pancreaze 10,500 Unit FEEDTUBE PRN PRN For Clogged Feeding Tube Apixaban 5 mg 10/05/19 11:00 10/08/19 21:00 Eliquis PO Not Given Q12HR CLARKE Ascorbic Acid 500 mg 10/01/19 16:00 10/08/19 20:59 Vitamin C PO 500 mg BID CLARKE Administration Dextrose 50 ml 10/01/19 09:10 D50w (25gm) Syringe IV Q30MIN PRN Hypoglycemia Protocol Epoetin Mukesh 10,000 unit 10/07/19 15:26 10/08/19 09:43 Procrit IV 10,000 unit KINJAL PRN Administration hemodialysis Fentanyl 50 mcg 10/01/19 15:03 Sublimaze IV Q10MIN PRN ANALGESIA Heparin Sodium (Porcine) 5,000 unit 10/07/19 15:26 Heparin IV KINJAL PRN hemodialysis Hydralazine HCl 10 mg 10/01/19 09:20 10/04/19 10:00 Apresoline IV 10 mg Q4HR PRN Administration Hypertension Hydrophilic Ointment 1 applic 10/04/19 14:47 Vaseline Lip Therapy TP Q2HR PRN Dry Lips Propofol 1,000 mg in 100 mls @ 1.905 mls/hr 10/01/19 14:00 10/09/19 05:45 Diprivan 10 Mg/Ml IV 50 mcg/kg/min TITR CLARKE 19.051 mls/hr Administration Protocol 5 MCG/KG/MIN Fentanyl Citrate 2,000 mcg in 100 mls @ 3.175 mls/hr 10/01/19 16:00 10/09/19 02:19 Fentanyl Drip Premix IV 4 mcg/kg/hr TITR CLARKE 12.701 mls/hr Administration Protocol 1 MCG/KG/HR Midazolam HCl 100 mg/ Sodium 100 mls @ 2 mls/hr 10/04/19 15:00 10/09/19 03:25 Chloride IV 5 mg/hr TITR CLARKE 5 mls/hr Administration Protocol 2 MG/HR Sodium Chloride 500 mls @ 10 mls/hr 10/04/19 16:00 Nacl 0.9% 500 Ml IV DIRECT CLARKE Norepinephrine 4 mg in 250 mls @ 37.5 mls/hr 10/04/19 18:00 10/08/19 17:35 Levophed Drip 4 Mg/Ns 250 Ml IV Infused TITR CLARKE Titration Protocol 10 MCG/MIN Sodium Chloride 100 mls @ 999 mls/hr 10/07/19 15:26 Nacl 0.9% IV KINJAL PRN Hypotension Sodium Chloride 100 mls @ 999 mls/hr 10/09/19 11:29 Nacl 0.9% IV KINJAL PRN Hypotension Insulin Human Isoph/Insulin Regular 60 unit 10/07/19 10:00 10/09/19 08:42 Humulin 70/30 SUB-Q 60 unit BIDDIAB CLARKE Administration Insulin Human Lispro 0 unit 10/01/19 12:00 10/09/19 06:49 Humalog SUB-Q 2 unit Q6HR CLARKE Administration Protocol Methylprednisolone Sodium Succinate 40 mg 10/03/19 14:00 10/09/19 05:53 Solu-Medrol IV 40 mg Q8HR CLARKE Administration Metoclopramide HCl 10 mg 10/01/19 09:10 Reglan IV Q6H PRN Nausea And Vomiting Metoclopramide HCl 5 mg 10/09/19 12:00 Reglan IV Q6HR CLARKE Midazolam HCl 2 mg 10/04/19 14:47 Versed IV Q10MIN PRN Sedation Multi-Ingred Cream/Lotion/Oil/Oint 1 applic 10/04/19 14:47 Artificial Tears Ophth Oint OU Q4HR PRN Dry Eye(s) Naloxone HCl 0.1 mg 10/01/19 09:10 Naloxone IV Q2MIN PRN Res Rate </= 8 or 02 SAT < 92% Pantoprazole Sodium 40 mg 10/09/19 11:00 Protonix IV BID CLARKE Simple Syrup 15 ml 10/02/19 11:44 Simple Syrup FEEDTUBE PRN PRN Hypoglycemia Simple Syrup 30 ml 10/02/19 11:44 Simple Syrup FEEDTUBE PRN PRN Hypoglycemia Sodium Bicarbonate 325 mg 10/02/19 11:44 Sodium Bicarbonate FEEDTUBE PRN PRN For Clogged Feeding Tube Sodium Chloride 10 ml 10/01/19 10:00 10/08/19 21:00 Sodium Chloride Flush Syringe 10 Ml IV Not Given BID CLARKE Sodium Chloride 10 ml 10/01/19 09:10 Sodium Chloride Flush Syringe 10 Ml IV PRN PRN LINE FLUSH Sodium Chloride 5 ml 10/04/19 14:47 Nacl 0.9% 500 Ml IV DIRECT PRN ARTERIAL PLASTER CASTER Zinc Sulfate 220 mg 10/01/19 16:00 10/08/19 20:59 Zinc Sulfate PO 220 mg BID CLARKE Administration
[2019-10-09 14:33] LABS: Heparin-Induced Platelet Antib Negative (Negative); Unfractionated Heparin Negative (Negative)
--- NOTE | 2019-10-09 16:23 | Progress Note ---
Assessment and Plan Assessment and plan: --COVID positive patient; --Bloodstained/coffee-ground emesis/aspirate from the Dobbhoff; Hold tube feeding, IV Protonix, monitor H&H, if no improvement, hold Eliquis Consult GI --Acute hypoxic respiratory failure. On vent Continue ventilatory support, wean as tolerated and extubate Pulmonary critical following . --Sepsis: Completed IV antibiotics per ID. Monitor off antibiotics, supportive care --Bilateral pneumonia: Due to COVID-19 , supportive care --ARDS: Ventilatory support, nebulizers, pulmonary critical following --COVID 19 infection. Actemra x1 and remdesivir. Continue to trend in flammatory markers. Consider convalescent plasma therapy per ID. --COVID coagulopathy. Continue with full anticoagulation Eliquis --Transaminitis. Etiology secondary to sepsis/COVID. Continue to trend LFTs. --Acute kidney injury. Etiology secondary to ATN/sepsis superimposed on vasomotor nephropathy. Continue to follow renal function , avoid nephrotoxins, nephrology planning intermittent HD --Coag negative staph bacteremia. Likely contaminant. We will closely monitor patient and adjust management as needed Plan of care reviewed with the patient and her nurse The high probability of a clinically significant, sudden or life threatening deterioration of the [respiratory, infectious, renal and GI] system(s) required my full and direct attention, intervention and personal management. The aggregate critical care time was [35] minutes. This time is in addition to time spent performing reported procedures but includes the following: [x] Data Review and interpretation [x] Patient assessment and monitoring of vital signs [x] Documentation [x] Medication orders and management History Interval history: Patient seen and examined Patient's chart and medications reviewed Patient had bloodstained Dobbhoff aspirate this morning Advised to hold tube feeding Monitor H&H If no improvement consider GI evaluation. Patient intubated on ventilatory support Not in acute distress Vital signs noted Hospitalist Physical - Constitutional Vitals: Temp Pulse Resp BP Pulse Ox 97.6 F 96 H 30 H 125/64 100 10/09/19 12:00 10/09/19 16:15 10/09/19 16:15 10/09/19 16:15 10/09/19 16:15 General appearance: Present: well-nourished, other (Patient on mechanical ventilation) - EENT Eyes: Present: PERRL, EOM intact - Neck Neck: Present: supple, normal ROM - Respiratory Respiratory effort: normal Respiratory: bilateral: diminished, negative: rales, rhonchi, wheezing - Cardiovascular Rhythm: regular Heart Sounds: Present: S1 & S2 - Extremities Extremities: no ischemia, No edema - Abdominal General gastrointestinal: soft, non-tender, non-distended, normal bowel sounds - Integumentary Integumentary: Present: clear, warm - Psychiatric Psychiatric: appropriate mood/affect, cooperative - Neurologic Neurologic: CNII-XII intact, moves all extremities HEART Score - HEART Score Troponin: Troponin T 0.018 ng/mL (0.00-0.029) 10/01/19 05:36 Results - Labs CBC & Chem 7: 10/08/19 05:45 10/09/19 05:30 Labs: Laboratory Last Values WBC 24.2 K/mm3 (4.5-11.0) H 10/08/19 05:45 RBC 3.47 M/mm3 (3.65-5.03) L 10/08/19 05:45 Hgb 10.5 gm/dl (10.1-14.3) 10/08/19 05:45 Hct 31.3 % (30.3-42.9) 10/08/19 05:45 MCV 90 fl (79-97) 10/08/19 05:45 MCH 30 pg (28-32) 10/08/19 05:45 MCHC 33 % (30-34) 10/08/19 05:45 RDW 15.7 % (13.2-15.2) H 10/08/19 05:45 Plt Count 67 K/mm3 (140-440) L 10/08/19 05:45 Lymph % (Auto) Cdl A Driver 10/01/19 06:31 Bennett % (Auto) 4.4 % (0.0-7.3) 10/06/19 06:07 Eos % (Auto) 0.1 % (0.0-4.3) 10/06/19 06:07 Baso % (Auto) Cdl A Driver 10/01/19 06:31 Lymph # Cdl A Driver 10/01/19 06:31 Bennett # 0.9 K/mm3 (0.0-0.8) H 10/06/19 06:07 Eos # 0.0 K/mm3 (0.0-0.4) 10/06/19 06:07 Baso # 0.0 K/mm3 (0.0-0.1) 10/06/19 06:07 Add Manual Diff Complete 10/08/19 05:45 Total Counted 100 10/08/19 05:45 Seg Neutrophils % Cdl A Driver 10/08/19 05:45 Seg Neuts % (Manual) 97.0 % (40.0-70.0) H 10/08/19 05:45 Band Neutrophils % 0 % 10/08/19 05:45 Lymphocytes % (Manual) 0 % (13.4-35.0) L 10/08/19 05:45 Reactive Lymphs % (Man) 0 % 10/08/19 05:45 Monocytes % (Manual) 2.0 % (0.0-7.3) 10/08/19 05:45 Eosinophils % (Manual) 1.0 % (0.0-4.3) 10/08/19 05:45 Basophils % (Manual) 0 % (0.0-1.8) 10/08/19 05:45 Metamyelocytes % 0 % 10/08/19 05:45 Myelocytes % 0 % 10/08/19 05:45 Promyelocytes % 0 % 10/08/19 05:45 Blast Cells % 0 % 10/08/19 05:45 Nucleated RBC % 6.0 % (0.0-0.9) H 10/08/19 05:45 Seg Neutrophils # 18.4 K/mm3 (1.8-7.7) H 10/06/19 06:07 Seg Neutrophils # Man 23.5 K/mm3 (1.8-7.7) H 10/08/19 05:45 Band Neutrophils # 0.0 K/mm3 10/08/19 05:45 Lymphocytes # (Manual) 0.0 K/mm3 (1.2-5.4) L 10/08/19 05:45 Abs React Lymphs (Man) 0.0 K/mm3 10/08/19 05:45 Monocytes # (Manual) 0.5 K/mm3 (0.0-0.8) 10/08/19 05:45 Eosinophils # (Manual) 0.2 K/mm3 (0.0-0.4) 10/08/19 05:45 Basophils # (Manual) 0.0 K/mm3 (0.0-0.1) 10/08/19 05:45 Metamyelocytes # 0.0 K/mm3 10/08/19 05:45 Myelocytes # 0.0 K/mm3 10/08/19 05:45 Promyelocytes # 0.0 K/mm3 10/08/19 05:45 Blast Cells # 0.0 K/mm3 10/08/19 05:45 WBC Morphology Not Reportable 10/08/19 05:45 Hypersegmented Neuts Not Reportable 10/08/19 05:45 Hyposegmented Neuts Not Reportable 10/08/19 05:45 Hypogranular Neuts Not Reportable 10/08/19 05:45 Smudge Cells Not Reportable 10/08/19 05:45 Toxic Granulation Not Reportable 10/08/19 05:45 Toxic Vacuolation Not Reportable 10/08/19 05:45 Dohle Bodies Not Reportable 10/08/19 05:45 Pelger-Huet Anomaly Not Reportable 10/08/19 05:45 Dona Rods Not Reportable 10/08/19 05:45 Platelet Estimate Cons 10/08/19 05:45 Clumped Platelets Not Reportable 10/08/19 05:45 Plt Clumps, EDTA Not Reportable 10/08/19 05:45 Large Platelets Few 10/08/19 05:45 Giant Platelets Not Reportable 10/08/19 05:45 Platelet Satelliting Not Reportable 10/08/19 05:45 Plt Morphology Comment Not Reportable 10/08/19 05:45 RBC Morphology Not Reportable 10/08/19 05:45 Dimorphic RBCs Not Reportable 10/08/19 05:45 Polychromasia Few 10/08/19 05:45 Hypochromasia Not Reportable 10/08/19 05:45 Poikilocytosis Not Reportable 10/08/19 05:45 Anisocytosis 1+ 10/08/19 05:45 Microcytosis Not Reportable 10/08/19 05:45 Macrocytosis Not Reportable 10/08/19 05:45 Spherocytes Not Reportable 10/08/19 05:45 Pappenheimer Bodies Not Reportable 10/08/19 05:45 Sickle Cells Not Reportable 10/08/19 05:45 Target Cells Not Reportable 10/08/19 05:45 Tear Drop Cells Not Reportable 10/08/19 05:45 Ovalocytes Not Reportable 10/08/19 05:45 Helmet Cells Not Reportable 10/08/19 05:45 [place] Bodies Not Reportable 10/08/19 05:45 [place] Rings Not Reportable 10/08/19 05:45 [place] Cells Not Reportable 10/08/19 05:45 Bite Cells Not Reportable 10/08/19 05:45 Crenated Cell Not Reportable 10/08/19 05:45 Elliptocytes Not Reportable 10/08/19 05:45 Acanthocytes (Spur) Not Reportable 10/08/19 05:45 Rouleaux Not Reportable 10/08/19 05:45 Hemoglobin C Crystals Not Reportable 10/08/19 05:45 Schistocytes Not Reportable 10/08/19 05:45 Malaria parasites Not Reportable 10/08/19 05:45 Cornelio Bodies Not Reportable 10/08/19 05:45 Hem Pathologist Commnt No 10/08/19 05:45 PT 14.5 Sec. (12.2-14.9) 10/01/19 05:36 INR 1.15 (0.87-1.13) H 10/01/19 05:36 APTT 28.6 Sec. (24.2-36.6) 10/01/19 05:36 D-Dimer > 22510 ng/mlDDU (0-234) H 10/05/19 12:10 Heparin Anti-Xa, Unfract Negative (Negative) 10/05/19 12:10 ABG pH 7.196 pH Units (7.350-7.450) L* 10/09/19 04:55 ABG pCO2 61.8 mm Hg 10/09/19 04:55 ABG pO2 121.3 mm Hg (80.0-90.0) H 10/09/19 04:55 ABG HCO3 23.4 mmol/L (20.0-26.0) 10/09/19 04:55 ABG O2 Saturation 97.6 % (95.0-99.0) 10/09/19 04:55 ABG O2 Content 12.3 (0.0-44) 10/09/19 04:55 ABG Base Excess -4.9 mmol/L (-2.0-3.0) L 10/09/19 04:55 ABG Hemoglobin 9.0 gm/dl (12.0-16.0) L 10/09/19 04:55 ABG Carboxyhemoglobin 1.4 % (0.0-5.0) 10/09/19 04:55 ABG Methemoglobin 0.6 % (0.0-1.5) 10/09/19 04:55 Oxyhemoglobin 95.7 % (95.0-99.0) 10/09/19 04:55 FiO2 80 % 10/09/19 04:55 Sodium 147 mmol/L (137-145) H 10/09/19 05:30 Potassium 4.9 mmol/L (3.6-5.0) D 10/09/19 05:30 Chloride 103.9 mmol/L (98-107) 10/09/19 05:30 Carbon Dioxide 21 mmol/L (22-30) L 10/09/19 05:30 Anion Gap 27 mmol/L 10/09/19 05:30 BUN 111 mg/dL (7-17) H 10/09/19 05:30 Creatinine 4.0 mg/dL (0.7-1.2) H 10/09/19 05:30 Estimated GFR 14 ml/min 10/09/19 05:30 BUN/Creatinine Ratio 28 % 10/09/19 05:30 Glucose 196 mg/dL (65-100) H 10/09/19 05:30 POC Glucose 196 (70-105) H 10/09/19 06:22 Ketones Quantitative Negative (Negative) 10/01/19 06:31 Lactic Acid 1.80 mmol/L (0.7-2.0) 10/02/19 08:04 Calcium 8.9 mg/dL (8.4-10.2) 10/09/19 05:30 Phosphorus 4.70 mg/dL (2.5-4.5) H 10/01/19 12:45 Magnesium 2.50 mg/dL (1.7-2.3) H 10/01/19 12:45 Ferritin 1646.0 ng/mL (13.0-400.0) H 10/01/19 12:24 Total Bilirubin 0.30 mg/dL (0.1-1.2) 10/07/19 11:04 Direct Bilirubin < 0.2 mg/dL (0-0.2) 10/01/19 05:36 Indirect Bilirubin 0.1 mg/dL 10/01/19 05:36 AST 136 units/L (5-40) H 10/07/19 11:04 ALT 109 units/L (7-56) H 10/07/19 11:04 Alkaline Phosphatase 263 units/L (35-129) H 10/07/19 11:04 Lactate Dehydrogenase 766 units/L (91-180) H 10/01/19 12:24 Troponin T 0.018 ng/mL (0.00-0.029) 10/01/19 05:36 C-Reactive Protein 18.60 mg/dL (0.00-1.30) H 10/01/19 12:24 NT-Pro-B Natriuret Pep 1525 pg/mL (0-900) H 10/01/19 12:45 Total Protein 4.8 g/dL (6.3-8.2) L 10/07/19 11:04 Albumin 2.7 g/dL (3.9-5) L 10/07/19 11:04 Albumin/Globulin Ratio 1.3 % 10/07/19 11:04 Triglycerides 427 mg/dL (2-149) H 10/09/19 05:30 Procalcitonin 1.73 ng/mL (<0.15) 10/01/19 12:24 Urine Color Yellow (Yellow) 10/05/19 10:17 Urine Turbidity Cloudy (Clear) 10/05/19 10:17 Urine pH 5.0 (5.0-7.0) 10/05/19 10:17 Ur Specific [place] 1.018 (1.003-1.030) 10/05/19 10:17 Urine Protein 30 mg/dl mg/dL (Negative) 10/05/19 10:17 Urine Glucose (UA) Neg mg/dL (Negative) 10/05/19 10:17 Urine Ketones Neg mg/dL (Negative) 10/05/19 10:17 Urine Blood Mod (Negative) 10/05/19 10:17 Urine Nitrite Neg (Negative) 10/05/19 10:17 Urine Bilirubin Neg (Negative) 10/05/19 10:17 Urine Urobilinogen < 2.0 mg/dL (<2.0) 10/05/19 10:17 Ur Leukocyte Esterase Neg (Negative) 10/05/19 10:17 Urine WBC (Auto) 25.0 /HPF (0.0-6.0) H 10/05/19 10:17 Urine RBC (Auto) 109.0 /HPF (0.0-6.0) 10/05/19 10:17 U Epithel Cells (Auto) 3.0 /HPF (0-13.0) 10/05/19 10:17 Urine Bacteria (Auto) 1+ /HPF (Negative) 10/05/19 10:17 Urine Mucus Few /HPF 10/05/19 10:17 Urine Creatinine 179.4 mg/dL (0.1-20.0) H 10/05/19 10:16 Urine Microalbumin 6.7 mg/dL (0.1-34.0) 10/01/19 09:10 Microalb/Creat Ratio 37.3 ug/mg 10/01/19 09:10 Urine Sodium 10 mmol/L 10/05/19 10:16 Urine Total Protein 66 mg/dL (5-11.8) H 10/05/19 10:16 Heparin-induced Plt Ab Negative (Negative) 10/05/19 12:10 UF Heparin High Dose 1 % Release 10/05/19 12:10 KIRA UFH Low Dose 0.1 0 % Release 10/05/19 12:10 KIRA UFH Low Dose 0.5 0 % Release 10/05/19 12:10 Coronavirus (PCR) Positive (Negative) A 10/01/19 Unknown Hepatitis A IgM Ab -1 (NonReactive) 10/08/19 08:30 Hep Bs Antigen Non-reactive (Negative) 10/08/19 08:30 Hep B Core IgM Ab Non-reactive (NonReactive) 10/08/19 08:30 Hepatitis C Antibody Non-reactive (NonReactive) 10/08/19 08:30 Blood Type B POSITIVE 10/03/19 13:50 Antibody Screen Negative 10/03/19 13:50 - Diagnostic Impressions Diagnostic Impressions: Echocardiogram 10/02/19 19:48 Transthoracic Echocardiogram Indication: Elevated BNP BP: 78/37 HR: 75 Conclusions *Global left ventricular systolic function is normal. *The estimated ejection fraction is 50-55%. *The right ventricular global systolic function is normal. *There is mild to moderate tricuspid regurgitation. *The right ventricular systolic pressure is calculated at 75 mmHg. *There is no evidence of mitral regurgitation. *There is no evidence of aortic regurgitation. *There is trace pulmonic regurgitation. *There is no pericardial effusion. *There is evidence of severe pulmonary hypertension. Findings Left Ventricle: Global left ventricular wall motion and contractility are within normal limits. Global left ventricular systolic function is normal. The estimated ejection fraction is 50-55%. Abnormal left ventricular diastolic filling is observed, consistent with impaired relaxation. Left Atrium: The left atrial chamber size is normal. Right Ventricle: The right ventricular cavity size is normal. The right ventricular global systolic function is normal. Right Atrium: The right atrial cavity size is normal. Aortic Valve: The aortic valve leaflets are mildly thickened. There is no evidence of aortic regurgitation. Mitral Valve: The mitral valve leaflets are mildly thickened. There is no evidence of mitral regurgitation. Tricuspid Valve: The tricuspid valve leaflets are normal. There is mild to moderate tricuspid regurgitation. The right ventricular systolic pressure is calculated at 75 mmHg. There is evidence of severe pulmonary hypertension. Pulmonic Valve: The pulmonic valve appears normal. There is trace pulmonic regurgitation. Pericardium: There is no pericardial effusion. Aorta: The aorta appears normal. Venous: The inferior vena cava appears normal. Measurements Chambers 2D Name Value Normal Range IVSd (2D) 1.1 cm (0.6 - 1.1) LVPWd (2D) 1.03 cm (0.6 - 1.1) IVS:LVPW ratio (2D) 1.07 ratio - LVIDd (2D) 2.7 cm (3.7 - 5.6) LVIDs (2D) 2.02 cm (2 - 3.8) LV FS (Teichholz) (2D) 25.2 % - LV FS (cube) (2D) 25.2 % - EF Teichholz (2D) 51.5 % - Ao root diameter (2D) 2.4 cm (2 - 3.7) LA dimension (AP) 2D 2.9 cm (1.9 - 4) LA:Ao ratio (2D) 1.21 ratio - Volumes/Mass Name Value Normal Range LA ESV SP 4CH (MOD) 23 ml - LA ESV SP 2CH (MOD) 21 ml - LA ESV BP (MOD) 22 ml - LA ESV BP (MOD) index 13.6 ml/m2 - LV EDV SP 4CH (MOD) 54 ml - LV ESV SP 4CH (MOD) 20 ml - EF SP 4CH (MOD) 63 % - LV EDV SP 2CH (MOD) 48 ml - LV ESV SP 2CH (MOD) 20 ml - EF SP 2CH (MOD) 58 % - LV EDV BP 51 ml - LV ESV BP 20 ml - BP EF (MOD) 61 % - Diastolic/Systolic Function Name Value Normal Range MV E-wave Vmax 0.94 m/sec - MV deceleration time 218 msec - MV A-wave Vmax 1.06 m/sec - MV E:A ratio 0.9 ratio - LV septal e' Vmax 0.08 m/sec - LV lateral e' Vmax 0.08 m/sec - LV E:e' septal ratio 11.3 ratio - LV E:e' lateral ratio 11.4 ratio - Aortic Valve Name Value Normal Range AV VTI 29.3 cm - AV mean gradient 8 mmHg - LVOT diameter 2 cm - LVOT VTI 29.7 cm - LVOT mean gradient 6 mmHg - SV LVOT 93 ml - YASMEEN (continuity VTI) 3.18 cm2 - Tricuspid Valve Name Value Normal Range TR Vmax 4.25 m/sec - TR peak gradient 72 mmHg - RAP 3 mmHg - RVSP 75 mmHg - Pulmonic Valve/Qp:Qs Name Value Normal Range PV Vmax 1.11 m/sec - PV peak gradient 5 mmHg - MN end-diastolic Vmax 1.71 m/sec - PV acceleration time 77 msec - Alexis/IV: Voiding Method Indwelling Catheter IV Catheter Type [Left Upper PICC Line arm] IV Catheter Type [Left Forearm INT / Saline Lock ] IV Catheter Type [Right Hand] Peripheral IV IV Catheter Type [Left Foot] INT / Saline Lock IV Catheter Type [Right Peripheral IV Forearm] Active Medications - Current Medications Current Medications: Generic Name Dose Route Start Last Admin Trade Name Freq PRN Reason Stop Dose Admin Acetaminophen 650 mg 10/01/19 09:10 Tylenol PO Q6H PRN Pain MILD(1-3)/Fever >100.5/PALOMARES Albumin Human 25 gm 10/07/19 15:26 10/08/19 10:46 Alburx 25% (Albumin) IV 25 gm KINJAL PRN Administration Hypotension Albuterol 2.5 mg 10/01/19 09:10 Proventil IH Q3HRT PRN Shortness Of Breath Lipase/Protease/Amylase 1 each 10/02/19 11:44 Pancreaze 10,500 Unit FEEDTUBE PRN PRN For Clogged Feeding Tube Apixaban 5 mg 10/05/19 11:00 10/09/19 10:41 Eliquis PO 5 mg Q12HR CLARKE Administration Ascorbic Acid 500 mg 10/01/19 16:00 10/09/19 10:41 Vitamin C PO 500 mg BID CLARKE Administration Dextrose 50 ml 10/01/19 09:10 D50w (25gm) Syringe IV Q30MIN PRN Hypoglycemia Protocol Epoetin Mukesh 10,000 unit 10/07/19 15:26 10/08/19 09:43 Procrit IV 10,000 unit KINJAL PRN Administration hemodialysis Fentanyl 50 mcg 10/01/19 15:03 Sublimaze IV Q10MIN PRN ANALGESIA Heparin Sodium (Porcine) 5,000 unit 10/07/19 15:26 Heparin IV KINJAL PRN hemodialysis Hydralazine HCl 10 mg 10/01/19 09:20 10/04/19 10:00 Apresoline IV 10 mg Q4HR PRN Administration Hypertension Hydrophilic Ointment 1 applic 10/04/19 14:47 Vaseline Lip Therapy TP Q2HR PRN Dry Lips Propofol 1,000 mg in 100 mls @ 1.905 mls/hr 10/01/19 14:00 10/09/19 16:05 Diprivan 10 Mg/Ml IV 50 mcg/kg/min TITR CLARKE 19.051 mls/hr Administration Protocol 5 MCG/KG/MIN Fentanyl Citrate 2,000 mcg in 100 mls @ 3.175 mls/hr 10/01/19 16:00 10/09/19 10:30 Fentanyl Drip Premix IV 4 mcg/kg/hr TITR CLARKE 12.701 mls/hr Administration Protocol 1 MCG/KG/HR Midazolam HCl 100 mg/ Sodium 100 mls @ 2 mls/hr 10/04/19 15:00 10/09/19 03:25 Chloride IV 5 mg/hr TITR CLARKE 5 mls/hr Administration Protocol 2 MG/HR Sodium Chloride 500 mls @ 10 mls/hr 10/04/19 16:00 Nacl 0.9% 500 Ml IV DIRECT CLARKE Norepinephrine 4 mg in 250 mls @ 37.5 mls/hr 10/04/19 18:00 10/08/19 17:35 Levophed Drip 4 Mg/Ns 250 Ml IV Infused TITR CLARKE Titration Protocol 10 MCG/MIN Sodium Chloride 100 mls @ 999 mls/hr 10/09/19 11:48 Nacl 0.9% IV KINJAL PRN Hypotension Insulin Human Isoph/Insulin Regular 60 unit 10/07/19 10:00 10/09/19 08:42 Humulin 70/30 SUB-Q 60 unit BIDDIAB CLARKE Administration Insulin Human Lispro 0 unit 10/01/19 12:00 10/09/19 06:49 Humalog SUB-Q 2 unit Q6HR CLARKE Administration Protocol Methylprednisolone Sodium Succinate 40 mg 10/03/19 14:00 10/09/19 14:03 Solu-Medrol IV 40 mg Q8HR CLARKE Administration Metoclopramide HCl 10 mg 10/01/19 09:10 Reglan IV Q6H PRN Nausea And Vomiting Metoclopramide HCl 5 mg 10/09/19 12:00 10/09/19 11:42 Reglan IV 5 mg Q6HR CLARKE Administration Midazolam HCl 2 mg 10/04/19 14:47 Versed IV Q10MIN PRN Sedation Multi-Ingred Cream/Lotion/Oil/Oint 1 applic 10/04/19 14:47 Artificial Tears Ophth Oint OU Q4HR PRN Dry Eye(s) Naloxone HCl 0.1 mg 10/01/19 09:10 Naloxone IV Q2MIN PRN Res Rate </= 8 or 02 SAT < 92% Pantoprazole Sodium 40 mg 10/09/19 11:00 10/09/19 11:36 Protonix IV 40 mg BID CLARKE Administration Simple Syrup 15 ml 10/02/19 11:44 Simple Syrup FEEDTUBE PRN PRN Hypoglycemia Simple Syrup 30 ml 10/02/19 11:44 Simple Syrup FEEDTUBE PRN PRN Hypoglycemia Sodium Bicarbonate 325 mg 10/02/19 11:44 Sodium Bicarbonate FEEDTUBE PRN PRN For Clogged Feeding Tube Sodium Chloride 10 ml 10/01/19 10:00 10/09/19 10:42 Sodium Chloride Flush Syringe 10 Ml IV 10 ml BID CLARKE Administration Sodium Chloride 10 ml 10/01/19 09:10 Sodium Chloride Flush Syringe 10 Ml IV PRN PRN LINE FLUSH Sodium Chloride 5 ml 10/04/19 14:47 Nacl 0.9% 500 Ml IV DIRECT PRN [employer] Zinc Sulfate 220 mg 10/01/19 16:00 10/09/19 10:42 Zinc Sulfate PO 220 mg BID CLARKE Administration Nutrition/Malnutrition Assess - Dietary Evaluation Nutrition/Malnutrition Findings: Nutrition Notes Start: 10/01/19 14:13 Freq: Status: Active Protocol: Document 10/08/19 09:39 LP (Rec: 10/08/19 09:53 LP [email or web address]) Nutrition Notes Initial or Follow up Reassessment Current Diagnosis Acute Kidney Injury,Diabetes, Hypertension Other Pertinent Diagnosis COVID-19 (+) Current Diet Nepro at 30ml/hr Labs/Tests TG 428 Na 148 Pertinent Medications Propofol at 19ml/hr Height 5 ft 1 in Weight 63.503 kg [place] Body Weight (kg) 47.72 BMI 26.4 Weight Status Overweight Subjective/Other Information Pt tolerating TF at goal rate. Percent of energy/protein needs met: 100%/76% with propofol Burn Absent Trauma Absent GI Symptoms None Current % PO Negligible Minimum of two criteria No physical signs of malnutrition #1 Nutrition Diagnosis Inadequate oral intake Diagnosis Progress(for reassessment Continues documentation) Is patient on ventilator? Yes Is Patient Ambulatory and/or Out of Bed No R[facility] 1358.172 Calculation Used for Recommendations [facility] Additional Notes Protein needs are 76-127g (1.2 -2g/kg) Fluid needs are 1ml/kcal Nutrition Intervention Change Diet Order: TF Nutrition Support: Nepro 1.8 at 30ml/hr Flush 130ml q4h When prone Nepro at 20ml/hr for 12 hr Flush 70ml q4h When Supine Nepro 1.8 at 40ml/ hr for the remaining 12 hr Flush 100ml q4h MD flush order 150ml q4h Kcal 1,296 Protein (gm) 58 Fluid (mL) 523 Goal #1 Meet at least 75% of kcal and protein needs Anticipated Discharge Needs: Unable to determine at this time Follow-Up By: 10/12/19 Additional Comments Follow for TF tolerance and Na
[2019-10-09 16:52] LABS: Hematocrit 27.2 % (30.3-42.9); Hemoglobin 9.1 gm/dl (10.1-14.3)
[2019-10-09] MEDS: ALBUMIN HUMAN 25% (25 GM/100 ML) INJ IV PRN (20:21)
[2019-10-09] MEDS: NORepinephrine/NS 4 MG-250 ML 4 MG/250 ML BAG IV SCH (20:54)
[2019-10-10] MEDS: fentaNYL DRIP Premix 2,000 MCG/100 ML BAG IV SCH ×4 (00:30→23:04)
[2019-10-10] MEDS: METOCLOPRAMIDE 10 MG/2 ML INJ IV SCH ×2 (00:31→06:13)
[2019-10-10] MEDS: INSULIN LISPRO 100 UNIT/ML SUB-Q SCH ×4 (00:32→18:52)
[2019-10-10] MEDS: MIDAZOLAM 100 MG in SODIUM CHLORIDE 0.9% 80 ML IV SCH ×2 (01:31→21:36)
[2019-10-10 04:26] LABS: ABG Base Excess -5.7 mmol/L (-2.0-3.0); ABG HCO3 21.3 mmol/L (20.0-26.0); ABG Methemoglobin 0.6 % (0.0-1.5); ABG Oxygen Saturation 96.7 % (95.0-99.0); ABG PH 7.247 pH Units (7.350-7.450); ABG PO2 98.8 mm Hg (80.0-90.0)
[2019-10-10] MEDS: methylPREDNISolone Sod Succinate 40 MG/1 ML INJ IV SCH ×3 (06:13→21:36)
[2019-10-10 06:34] LABS: Hemoglobin 7.1 gm/dl (10.1-14.3); Mean Corpuscular HGB Conc 32 % (30-34); Mean Corpuscular Volume 93 fl (79-97); Red Blood Count 2.37 M/mm3 (3.65-5.03); Red Cell Distribution Width 15.9 % (13.2-15.2)
[2019-10-10 06:51] LABS: Platelet Count 75 K/mm3 (140-440)
[2019-10-10 07:02] LABS: Calcium 8.9 mg/dL (8.4-10.2)
[2019-10-10] MEDS: INSULIN NPH/REGULAR 70/30 INJ SUB-Q SCH (07:53)
--- NOTE | 2019-10-10 08:21 | Gastroenterology Consultation ---
History of Present Illness - Reason for Consult Consult date: 10/10/19 GI Bleed Requesting physician: GAL MULLEN - History of Present Illness GI consulted for blood in NGT and drop in Hgb Spoke with patient's daughter, Raymond Plascencia and spoke with vianca turner's nurse for history as patient is intubated and unable to provide a history In brief, patient was admitted for COVID pneumonia, started on full anticoagulation with Eliquis due to hypercoagulable state. However, yesterday patient developed large amount of dark red blood from her NG tube and last night had melena from her rectal output therefore she did not get Eliquis yesterday. The nurse reports that the blood from the NG tube has nearly stopped and the melena from the rectal output has significantly decreased as of this morning. Repeat hemoglobin this a.m. did drop to correlate with the clinical bleeding patient had yesterday Per the patient's daughter, no known history of GI bleed or ulcers Obtained/updated/reviewed patient's current medications Past History Past Medical History: hypertension, hyperlipidemia Past Surgical History: No surgical history Social history: no significant social history Family history: no significant family history Medications and Allergies Allergies Allergy/AdvReac Type Severity Reaction Status Date / Time No Known Allergies Allergy Verified 10/01/19 06:31 Active Meds: Active Medications Acetaminophen (Tylenol) 650 mg PO Q6H PRN PRN Reason: Pain MILD(1-3)/Fever >100.5/PALOMARES Albumin Human (Alburx 25% (Albumin)) 25 gm IV KINJAL PRN PRN Reason: Hypotension Last Admin: 10/09/19 20:21 Dose: 25 gm Documented by: Albuterol (Proventil) 2.5 mg IH Q3HRT PRN PRN Reason: Shortness Of Breath Lipase/Protease/Amylase (Pancreaze Dr 10,500 Unit) 1 each FEEDTUBE PRN PRN PRN Reason: For Clogged Feeding Tube Apixaban (Eliquis) 5 mg PO Q12HR CLARKE Last Admin: 10/09/19 23:15 Dose: Not Given Documented by: Ascorbic Acid (Vitamin C) 500 mg PO BID CLARKE Last Admin: 10/09/19 23:16 Dose: Not Given Documented by: Dextrose (D50w (25gm) Syringe) 50 ml IV Q30MIN PRN; Protocol PRN Reason: Hypoglycemia Epoetin Mukesh (Procrit) 10,000 unit IV KINJAL PRN PRN Reason: hemodialysis Last Admin: 10/08/19 09:43 Dose: 10,000 unit Documented by: Fentanyl (Sublimaze) 50 mcg IV Q10MIN PRN PRN Reason: ANALGESIA Heparin Sodium (Porcine) (Heparin) 5,000 unit IV KINJAL PRN PRN Reason: hemodialysis Hydralazine HCl (Apresoline) 10 mg IV Q4HR PRN PRN Reason: Hypertension Last Admin: 10/04/19 10:00 Dose: 10 mg Documented by: Hydrophilic Ointment (Vaseline Lip Therapy) 1 applic TP Q2HR PRN PRN Reason: Dry Lips Propofol (Diprivan 10 Mg/Ml) 1,000 mg in 100 mls @ 1.905 mls/hr IV TITR CLARKE; Protocol Last Admin: 10/10/19 05:07 Dose: 50 mcg/kg/min, 19.051 mls/hr Documented by: Fentanyl Citrate (Fentanyl Drip Premix) 2,000 mcg in 100 mls @ 3.175 mls/hr IV TITR CLARKE; Protocol Last Admin: 10/10/19 00:30 Dose: 4 mcg/kg/hr, 12.701 mls/hr Documented by: Midazolam HCl 100 mg/ Sodium (Chloride) 100 mls @ 2 mls/hr IV TITR CLARKE; Protocol Last Admin: 10/10/19 01:31 Dose: 5 mg/hr, 5 mls/hr Documented by: Sodium Chloride (Nacl 0.9% 500 Ml) 500 mls @ 10 mls/hr IV DIRECT CLARKE Norepinephrine (Levophed Drip 4 Mg/Ns 250 Ml) 4 mg in 250 mls @ 37.5 mls/hr IV TITR CLARKE; Protocol Last Titration: 10/09/19 23:16 Dose: 0 mcg/min, 0 mls/hr Documented by: Sodium Chloride (Nacl 0.9%) 100 mls @ 999 mls/hr IV KINJAL PRN PRN Reason: Hypotension Pantoprazole Sodium 80 mg/ (Sodium Chloride) 100 mls @ 10 mls/hr IV DIRECT CLARKE Insulin Human Isoph/Insulin Regular (Humulin 70/30) 60 unit SUB-Q BIDDIAB CLARKE Last Admin: 10/10/19 07:53 Dose: Not Given Documented by: Insulin Human Lispro (Humalog) 0 unit SUB-Q Q6HR [facility]; Protocol Last Admin: 10/10/19 06:14 Dose: 2 unit Documented by: Methylprednisolone Sodium Succinate (Solu-Medrol) 40 mg IV Q8HR [facility] Last Admin: 10/10/19 06:13 Dose: 40 mg Documented by: Metoclopramide HCl (Reglan) 10 mg IV Q6H PRN PRN Reason: Nausea And Vomiting Metoclopramide HCl (Reglan) 5 mg IV Q6HR [facility] Last Admin: 10/10/19 06:13 Dose: 5 mg Documented by: Midazolam HCl (Versed) 2 mg IV Q10MIN PRN PRN Reason: Sedation Multi-Ingred Cream/Lotion/Oil/Oint (Artificial Tears Ophth Oint) 1 applic OU Q4HR PRN PRN Reason: Dry Eye(s) Naloxone HCl (Naloxone) 0.1 mg IV Q2MIN PRN PRN Reason: Res Rate </= 8 or 02 SAT < 92% Simple Syrup (Simple Syrup) 15 ml FEEDTUBE PRN PRN PRN Reason: Hypoglycemia Simple Syrup (Simple Syrup) 30 ml FEEDTUBE PRN PRN PRN Reason: Hypoglycemia Sodium Bicarbonate (Sodium Bicarbonate) 325 mg FEEDTUBE PRN PRN PRN Reason: For Clogged Feeding Tube Sodium Chloride (Sodium Chloride Flush Syringe 10 Ml) 10 ml IV BID [facility] Last Admin: 10/09/19 23:15 Dose: 10 ml Documented by: Sodium Chloride (Sodium Chloride Flush Syringe 10 Ml) 10 ml IV PRN PRN PRN Reason: LINE FLUSH Sodium Chloride (Nacl 0.9% 500 Ml) 5 ml IV DIRECT PRN PRN Reason: ARTERIAL CONTAINER SHOP WELDER Zinc Sulfate (Zinc Sulfate) 220 mg PO BID [facility] Last Admin: 10/09/19 23:16 Dose: Not Given Documented by: Review of Systems - Review of Systems ROS unobtainable: due to endotracheal tube Exam - Constitutional Vital Signs: Temp Pulse Resp BP Pulse Ox 96.9 F L 84 30 H 121/58 99 10/10/19 04:25 10/10/19 06:45 10/10/19 06:45 10/10/19 06:45 10/10/19 06:45 General appearance: other (Intubated) - Respiratory Respiratory effort: labored - Labs CBC & Chem 7: 10/10/19 06:15 10/10/19 06:15 Lab Results: Laboratory Results - last 24 hr 10/05/19 10/09/19 10/09/19 12:10 05:30 12:38 WBC RBC Hgb Hct MCV MCH MCHC RDW Plt Count Seg Neutrophils % Heparin Anti-Xa, Unfract Negative ABG pH ABG pCO2 ABG pO2 ABG HCO3 ABG O2 Saturation ABG O2 Content ABG Base Excess ABG Hemoglobin ABG Carboxyhemoglobin ABG Methemoglobin Oxyhemoglobin FiO2 Sodium 147 H Potassium 4.9 D Chloride 103.9 Carbon Dioxide 21 L Anion Gap 27 BUN 111 H Creatinine 4.0 H Estimated GFR 14 BUN/Creatinine Ratio 28 Glucose 196 H POC Glucose 255 H Calcium 8.9 Triglycerides Heparin-induced Plt Ab Negative UF Heparin High Dose 1 KIRA UFH Low Dose 0.1 0 KIRA UFH Low Dose 0.5 0 10/09/19 10/09/19 10/09/19 16:40 18:23 23:42 WBC RBC Hgb 9.1 L Hct 27.2 L MCV MCH MCHC RDW Plt Count Seg Neutrophils % Heparin Anti-Xa, Unfract ABG pH ABG pCO2 ABG pO2 ABG HCO3 ABG O2 Saturation ABG O2 Content ABG Base Excess ABG Hemoglobin ABG Carboxyhemoglobin ABG Methemoglobin Oxyhemoglobin FiO2 Sodium Potassium Chloride Carbon Dioxide Anion Gap BUN Creatinine Estimated GFR BUN/Creatinine Ratio Glucose POC Glucose 211 H 221 H Calcium Triglycerides Heparin-induced Plt Ab UF Heparin High Dose KIRA UFH Low Dose 0.1 KIRA UFH Low Dose 0.5 10/10/19 10/10/19 10/10/19 03:35 06:11 06:15 WBC RBC Hgb Hct MCV MCH MCHC RDW Plt Count Seg Neutrophils % Heparin Anti-Xa, Unfract ABG pH 7.247 L ABG pCO2 50.0 ABG pO2 98.8 H ABG HCO3 21.3 ABG O2 Saturation 96.7 ABG O2 Content 9.9 ABG Base Excess -5.7 L ABG Hemoglobin 7.3 L ABG Carboxyhemoglobin 1.8 ABG Methemoglobin 0.6 Oxyhemoglobin 94.4 L FiO2 50 Sodium Potassium Chloride Carbon Dioxide Anion Gap BUN Creatinine Estimated GFR BUN/Creatinine Ratio Glucose POC Glucose 169 H Calcium Triglycerides 144 Heparin-induced Plt Ab UF Heparin High Dose KIRA UFH Low Dose 0.1 KIRA UFH Low Dose 0.5 10/10/19 10/10/19 06:15 06:15 WBC 28.3 H RBC 2.37 L Hgb 7.1 L Hct 22.0 L MCV 93 MCH 30 MCHC 32 RDW 15.9 H Plt Count 75 L Seg Neutrophils % Sterile Process Coordinator Heparin Anti-Xa, Unfract ABG pH ABG pCO2 ABG pO2 ABG HCO3 ABG O2 Saturation ABG O2 Content ABG Base Excess ABG Hemoglobin ABG Carboxyhemoglobin ABG Methemoglobin Oxyhemoglobin FiO2 Sodium 148 H Potassium 4.9 Chloride 104.3 Carbon Dioxide 20 L Anion Gap 29 BUN 153 H Creatinine 5.1 H Estimated GFR 10 BUN/Creatinine Ratio 30 Glucose 157 H POC Glucose Calcium 8.9 Triglycerides Heparin-induced Plt Ab UF Heparin High Dose KIRA UFH Low Dose 0.1 KIRA UFH Low Dose 0.5 Assessment and Plan change PPI to PPI drip, agree with continuing to hold anticoagulation given significant GI bleeding. Trend hemoglobin every 8 hours and monitor output closely. Transfuse if hemoglobin drops below 7. As of right now the clinical bleeding appears to have stopped therefore we will not perform endoscopy as the risks of the endoscopy would likely outweigh the benefits at this juncture. However patient does rebleed and has hemodynamically significant bleeding please call me back immediately and will reassess for emergent EGD. Plan was discussed with patient's daughter and hospitalist - Patient Problems (1) GI bleed Current Visit: Yes Status: Acute (2) Pneumonia due to severe acute respiratory syndrome coronavirus 2 (SARS-CoV-2) Current Visit: Yes Status: Acute (3) Suspected 2019 novel coronavirus infection Current Visit: Yes Status: Acute
--- NOTE | 2019-10-10 09:52 | Progress Note ---
Assessment and Plan - Patient Problems (1) Acute kidney failure with tubular necrosis Current Visit: Yes Status: Acute Plan to address problem: Tolerated isolated UF well yesterday. Pressor were turned on for ~ 30 mins. Now off all pressors this am. Labs reviewed. Chest Xray concerning for worsening pneumonia process. s/p extra isolated UF session yesterday. Plan for HD today (2) GI bleed Current Visit: Yes Status: Acute Plan to address problem: GI consult reviewed, with repeat drop noted this am. Possible EGD if clinically stable per GI. Her level of azotemia can also be indicative of GI bleed process, (3) Acute respiratory failure with hypoxia Current Visit: Yes Status: Acute Plan to address problem: Vent management per pulmonary team. (4) Hypernatremia Current Visit: Yes Status: Acute Plan to address problem: Will manage with HD. (5) Metabolic acidosis Current Visit: Yes Status: Acute Plan to address problem: Will manage with HD. Monitor closely. (6) Pneumonia due to severe acute respiratory syndrome coronavirus 2 (SARS-CoV-2) Current Visit: Yes Status: Acute Plan to address problem: Management per infectious disease team and pulmonology. Subjective Date of service: 10/10/19 Principal diagnosis: Ac. hypoxemic resp failure; ARDS; COVID-19 virus infxn; PNA; Severe sepsis Interval history: Patient given orders for isolated UF yesterday, which she tolerated with removal of 2.0L. GI consultation reviewed and protonix drip initiated given concern for GI bleeding. H/H dropped again today, down to Hgb 7.1. Plan for HD session today. Objective - Vital Signs Vital signs: Vital Signs - 12hr 10/09/19 10/09/19 10/09/19 22:00 22:01 22:15 Temperature Pulse Rate 90 89 86 Respiratory 30 H 30 H Rate Blood Pressure 85/44 85/44 108/60 O2 Sat by Pulse 95 100 Oximetry O2 Sat by Pulse Oximetry [ Anterior Bilateral Throughout] O2 Sat by Pulse Oximetry [ Throughout] 10/09/19 10/09/19 10/09/19 22:25 22:31 22:33 Temperature 97.8 F 97.8 F Pulse Rate 87 89 94 H Respiratory 28 H 27 H 26 H Rate Blood Pressure 108/60 140/70 102/55 O2 Sat by Pulse 100 Oximetry O2 Sat by Pulse 100 Oximetry [ Anterior Bilateral Throughout] O2 Sat by Pulse 100 Oximetry [ Throughout] 10/09/19 10/09/19 10/09/19 22:45 23:01 23:15 Temperature Pulse Rate 89 89 89 Respiratory 20 30 H 30 H Rate Blood Pressure 156/70 150/69 141/66 O2 Sat by Pulse 98 100 98 Oximetry O2 Sat by Pulse Oximetry [ Anterior Bilateral Throughout] O2 Sat by Pulse Oximetry [ Throughout] 10/09/19 10/09/19 10/09/19 23:31 23:45 23:55 Temperature Pulse Rate 88 86 84 Respiratory 31 H 30 H Rate Blood Pressure 137/63 95/51 114/61 O2 Sat by Pulse 98 100 100 Oximetry O2 Sat by Pulse Oximetry [ Anterior Bilateral Throughout] O2 Sat by Pulse Oximetry [ Throughout] 10/10/19 10/10/19 10/10/19 00:00 00:01 00:15 Temperature 97.0 F L Pulse Rate 85 86 Respiratory 30 H 30 H Rate Blood Pressure 114/61 117/63 O2 Sat by Pulse 100 100 Oximetry O2 Sat by Pulse Oximetry [ Anterior Bilateral Throughout] O2 Sat by Pulse Oximetry [ Throughout] 10/10/19 10/10/19 10/10/19 00:31 00:45 01:00 Temperature Pulse Rate 86 87 88 Respiratory 30 H 30 H 30 H Rate Blood Pressure 127/65 122/70 128/68 O2 Sat by Pulse 100 100 100 Oximetry O2 Sat by Pulse Oximetry [ Anterior Bilateral Throughout] O2 Sat by Pulse Oximetry [ Throughout] 10/10/19 10/10/19 10/10/19 01:15 01:31 01:45 Temperature Pulse Rate 88 88 88 Respiratory 30 H 30 H 30 H Rate Blood Pressure 118/71 119/65 129/69 O2 Sat by Pulse 100 100 100 Oximetry O2 Sat by Pulse Oximetry [ Anterior Bilateral Throughout] O2 Sat by Pulse Oximetry [ Throughout] 10/10/19 10/10/19 10/10/19 02:01 02:15 02:31 Temperature Pulse Rate 88 88 87 Respiratory 30 H 30 H 30 H Rate Blood Pressure 120/65 117/66 108/63 O2 Sat by Pulse 100 100 100 Oximetry O2 Sat by Pulse Oximetry [ Anterior Bilateral Throughout] O2 Sat by Pulse Oximetry [ Throughout] 10/10/19 10/10/19 10/10/19 02:45 03:01 03:15 Temperature Pulse Rate 87 87 87 Respiratory 30 H 30 H 30 H Rate Blood Pressure 115/65 115/61 110/62 O2 Sat by Pulse 100 100 100 Oximetry O2 Sat by Pulse Oximetry [ Anterior Bilateral Throughout] O2 Sat by Pulse Oximetry [ Throughout] 10/10/19 10/10/19 10/10/19 03:31 03:45 04:00 Temperature Pulse Rate 86 86 86 Respiratory 30 H 30 H Rate Blood Pressure 108/63 124/50 O2 Sat by Pulse 100 99 Oximetry O2 Sat by Pulse Oximetry [ Anterior Bilateral Throughout] O2 Sat by Pulse Oximetry [ Throughout] 10/10/19 10/10/19 10/10/19 04:01 04:08 04:15 Temperature Pulse Rate 87 85 86 Respiratory 30 H 30 H Rate Blood Pressure 108/63 127/53 127/53 O2 Sat by Pulse 100 100 100 Oximetry O2 Sat by Pulse Oximetry [ Anterior Bilateral Throughout] O2 Sat by Pulse Oximetry [ Throughout] 10/10/19 10/10/19 10/10/19 04:24 04:25 04:31 Temperature 96.9 F L 96.9 F L Pulse Rate 85 Respiratory 30 H Rate Blood Pressure 128/53 O2 Sat by Pulse 100 Oximetry O2 Sat by Pulse Oximetry [ Anterior Bilateral Throughout] O2 Sat by Pulse Oximetry [ Throughout] 10/10/19 10/10/19 10/10/19 04:45 05:01 05:15 Temperature Pulse Rate 85 85 86 Respiratory 30 H 30 H 30 H Rate Blood Pressure 126/53 127/54 130/58 O2 Sat by Pulse 100 100 98 Oximetry O2 Sat by Pulse Oximetry [ Anterior Bilateral Throughout] O2 Sat by Pulse Oximetry [ Throughout] 10/10/19 10/10/19 10/10/19 05:31 05:45 06:01 Temperature Pulse Rate 85 84 83 Respiratory 30 H 30 H 30 H Rate Blood Pressure 133/61 122/57 117/56 O2 Sat by Pulse 100 99 95 Oximetry O2 Sat by Pulse Oximetry [ Anterior Bilateral Throughout] O2 Sat by Pulse Oximetry [ Throughout] 10/10/19 10/10/19 10/10/19 06:15 06:31 06:45 Temperature Pulse Rate 83 84 84 Respiratory 30 H 30 H 30 H Rate Blood Pressure 117/56 126/60 121/58 O2 Sat by Pulse 95 98 99 Oximetry O2 Sat by Pulse Oximetry [ Anterior Bilateral Throughout] O2 Sat by Pulse Oximetry [ Throughout] 10/10/19 08:00 Temperature Pulse Rate 80 Respiratory Rate Blood Pressure 116/62 O2 Sat by Pulse 98 Oximetry O2 Sat by Pulse Oximetry [ Anterior Bilateral Throughout] O2 Sat by Pulse Oximetry [ Throughout] - General Appearance General appearance: chronically ill, intubated EENT: ATNC Neck: no JVD Respiratory: Present: Decreased Breath Sounds Cardiology: regular, S1S2 Gastrointestinal: normal, normoactive bowel sounds Integumentary: no rash, warm and dry Musculoskeletal: deferred - Lab 10/10/19 06:15 10/10/19 06:15 Most recent lab results ABG pH 7.247 pH Units (7.350-7.450) L 10/10/19 03:35 ABG pCO2 50.0 mm Hg 10/10/19 03:35 ABG pO2 98.8 mm Hg (80.0-90.0) H 10/10/19 03:35 ABG HCO3 21.3 mmol/L (20.0-26.0) 10/10/19 03:35 ABG O2 Saturation 96.7 % (95.0-99.0) 10/10/19 03:35 Calcium 8.9 mg/dL (8.4-10.2) 10/10/19 06:15 Phosphorus 4.70 mg/dL (2.5-4.5) H 10/01/19 12:45 Magnesium 2.50 mg/dL (1.7-2.3) H 10/01/19 12:45 Urine Creatinine 179.4 mg/dL (0.1-20.0) H 10/05/19 10:16 Urine Sodium 10 mmol/L 10/05/19 10:16 Urine Total Protein 66 mg/dL (5-11.8) H 10/05/19 10:16 Medications & Allergies - Medications Allergies/Adverse Reactions: Allergies No Known Allergies Allergy (Verified 10/01/19 06:31) Active Medications: Generic Name Dose Route Start Last Admin Trade Name Freq PRN Reason Stop Dose Admin Acetaminophen 650 mg 10/01/19 09:10 Tylenol PO Q6H PRN Pain MILD(1-3)/Fever >100.5/PALOMARES Albumin Human 25 gm 10/07/19 15:26 10/09/19 20:21 Alburx 25% (Albumin) IV 25 gm KINJAL PRN Administration Hypotension Albuterol 2.5 mg 10/01/19 09:10 Proventil IH Q3HRT PRN Shortness Of Breath Lipase/Protease/Amylase 1 each 10/02/19 11:[address] 10,500 Unit FEEDTUBE PRN PRN For Clogged Feeding Tube Apixaban 5 mg 10/05/19 11:00 10/09/19 23:15 Eliquis PO Not Given Q12HR CLARKE Ascorbic Acid 500 mg 10/01/19 16:00 10/09/19 23:16 Vitamin C PO Not Given BID CLARKE Dextrose 50 ml 10/01/19 09:10 D50w (25gm) Syringe IV Q30MIN PRN Hypoglycemia Protocol Epoetin Mukesh 10,000 unit 10/07/19 15:26 10/08/19 09:43 Procrit IV 10,000 unit KINJAL PRN Administration hemodialysis Fentanyl 50 mcg 10/01/19 15:03 Sublimaze IV Q10MIN PRN ANALGESIA Heparin Sodium (Porcine) 5,000 unit 10/07/19 15:26 Heparin IV KINJAL PRN hemodialysis Hydralazine HCl 10 mg 10/01/19 09:20 10/04/19 10:00 Apresoline IV 10 mg Q4HR PRN Administration Hypertension Hydrophilic Ointment 1 applic 10/04/19 14:47 Vaseline Lip Therapy TP Q2HR PRN Dry Lips Propofol 1,000 mg in 100 mls @ 1.905 mls/hr 10/01/19 14:00 10/10/19 08:23 Diprivan 10 Mg/Ml IV 50 mcg/kg/min TITR CLARKE 19.051 mls/hr Administration Protocol 5 MCG/KG/MIN Fentanyl Citrate 2,000 mcg in 100 mls @ 3.175 mls/hr 10/01/19 16:00 10/10/19 07:30 Fentanyl Drip Premix IV 4 mcg/kg/hr TITR CLARKE 12.701 mls/hr Administration Protocol 1 MCG/KG/HR Midazolam HCl 100 mg/ Sodium 100 mls @ 2 mls/hr 10/04/19 15:00 10/10/19 01:31 Chloride IV 5 mg/hr TITR CLARKE 5 mls/hr Administration Protocol 2 MG/HR Sodium Chloride 500 mls @ 10 mls/hr 10/04/19 16:00 Nacl 0.9% 500 Ml IV DIRECT CLARKE Norepinephrine 4 mg in 250 mls @ 37.5 mls/hr 10/04/19 18:00 10/09/19 23:16 Levophed Drip 4 Mg/Ns 250 Ml IV 0 mcg/min TITR CLARKE 0 mls/hr Titration Protocol 10 MCG/MIN Sodium Chloride 100 mls @ 999 mls/hr 10/09/19 11:48 Nacl 0.9% IV KINJAL PRN Hypotension Pantoprazole Sodium 80 mg/ 100 mls @ 10 mls/hr 10/10/19 09:00 Sodium Chloride IV DIRECT CLARKE 8 MG/HR Insulin Human Isoph/Insulin Regular 60 unit 10/07/19 10:00 10/10/19 07:53 Humulin 70/30 SUB-Q Not Given BIDDIAB CLARKE Insulin Human Lispro 0 unit 10/01/19 12:00 10/10/19 06:14 Humalog SUB-Q 2 unit Q6HR CLARKE Administration Protocol Methylprednisolone Sodium Succinate 40 mg 10/03/19 14:00 10/10/19 06:13 Solu-Medrol IV 40 mg Q8HR CLARKE Administration Metoclopramide HCl 10 mg 10/01/19 09:10 Reglan IV Q6H PRN Nausea And Vomiting Metoclopramide HCl 5 mg 10/09/19 12:00 10/10/19 06:13 Reglan IV 5 mg Q6HR CLARKE Administration Midazolam HCl 2 mg 10/04/19 14:47 Versed IV Q10MIN PRN Sedation Multi-Ingred Cream/Lotion/Oil/Oint 1 applic 10/04/19 14:47 Artificial Tears Ophth Oint OU Q4HR PRN Dry Eye(s) Naloxone HCl 0.1 mg 10/01/19 09:10 Naloxone IV Q2MIN PRN Res Rate </= 8 or 02 SAT < 92% Simple Syrup 15 ml 10/02/19 11:44 Simple Syrup FEEDTUBE PRN PRN Hypoglycemia Simple Syrup 30 ml 10/02/19 11:44 Simple Syrup FEEDTUBE PRN PRN Hypoglycemia Sodium Bicarbonate 325 mg 10/02/19 11:44 Sodium Bicarbonate FEEDTUBE PRN PRN For Clogged Feeding Tube Sodium Chloride 10 ml 10/01/19 10:00 10/09/19 23:15 Sodium Chloride Flush Syringe 10 Ml IV 10 ml BID CLARKE Administration Sodium Chloride 10 ml 10/01/19 09:10 Sodium Chloride Flush Syringe 10 Ml IV PRN PRN LINE FLUSH Sodium Chloride 5 ml 10/04/19 14:47 Nacl 0.9% 500 Ml IV DIRECT PRN ARTERIAL OPERA SINGER Zinc Sulfate 220 mg 10/01/19 16:00 10/09/19 23:16 Zinc Sulfate PO Not Given BID CLARKE
[2019-10-10] MEDS: ASCORBIC ACID 500 MG TAB PO SCH ×2 (09:58→21:39)
[2019-10-10] MEDS ORDERED: SODIUM CHLORIDE 0.9% 100 ML IV PRN (10:00)
--- NOTE | 2019-10-10 10:49 | XRay Report ---
CHEST 1 VIEW 10/10/2019 9:31 AM INDICATION / CLINICAL INFORMATION: follow up respiratory failure. COMPARISON: 10/09/2019 FINDINGS: SUPPORT DEVICES: Stable satisfactory device positioning. HEART / MEDIASTINUM: Stable. LUNGS / PLEURA: Stable hazy patchy bilateral opacities. No pneumothorax. ADDITIONAL FINDINGS: No significant additional findings. IMPRESSION: 1. No significant change from 10/09/2019. Signer Name: Jovanni Davis MD Signed: 10/10/2019 10:44 AM Workstation Name: [id number]
[2019-10-10] MEDS: APIXABAN 5 MG TAB PO SCH (10:51)
[2019-10-10] MEDS: ZINC SULFATE 220 MG CAP PO SCH ×2 (10:59→21:39)
[2019-10-10] MEDS: PANTOPRAZOLE 80 MG in SODIUM CHLORIDE 0.9% 100 ML IV SCH ×2 (12:02→20:12)
[2019-10-10 15:29] LABS: Basophils % (Manual) 0 % (0.0-1.8); Eosinophils % (Manual) 0 % (0.0-4.3); Total Cells Counted 100
[2019-10-10 15:30] LABS: Anisocytosis Few
--- NOTE | 2019-10-10 16:58 | Progress Note ---
Assessment and Plan Severe sepsis secondary to COVID COVID pneumonia with ARDS Acute hypoxemic respiratory failure, orally intubated on MVS Multi-lobar pneumonia FANI Thrombocytopenia - PEEP at 20 monitor airway pressures closely, will get ABG in the morning if oxygenation is acceptable, plan to wean PEEP down by 2 -Stop propofol in the morning - Wean supplemental oxygen for target O2 sats > 94% -ABG daily. CXR prn -Follow HIT panel _start on PPI, since hemoglobin is stable, BID dosing -Wean off noreponphrine -Supportive transfusions as inidcated fro HgB <7g/dL -Place NGT to LIS, -HD/UF today with intradialytic vasopressor support if needed -D/C arterial line -CBC, BMP daily - Daily SAT's and SBT assessment - current ventilator demands precludes this - VAP bundle addressed - Lung protective strategies -Fluid conservative measures as tolerated by hemodynamics and renal function - Bronchodilators with pulmonary hygiene per RT - Accuchecks with glycemic control per SSI (While critically ill target blood glucose of 140-180 mg/dL; avoid hypoglycemia) - Avoid benzodiazepines, reduce the possibility of delirium - prn analgesia per CPOT score - Maintenance of sleep-wake cycle, avoid delirium -Avoid nephrotoxins, closely monitor renal function -Alexis catheter for accurate intake and output monitoring in this critically ill patient with COVID-ARDS, severe hypoxemia - Completed empiric antibiotics( Ceftriaxone and Azithromycin for CAP ) -Aspiration precautions, HOB >40 -Sedation Fentanyl, Propofol and midazolam titrate to RASS -2 to -4 - Stress ulcer prophylaxis ( Famotidine) - Mobility protocol, off loading and skin assessment for pressure ulcer prevention - Monitor hemodynamics closely -Supportive transfusions as indicated to keep HgB >7g/dL COVID SPECIFIC INTERVENTIONS -Needs aggressive management per ID/Pulmonary drive protocols -Airborne, contact isolation for COVID per facility protocols -Patient has renal impairment and is not a candidate for Remdesivir at this time -Consent and administration of convalescent plasma per facility protocol- still awaiting delivery of plasma -Continue with steroids, solumedrol IV 40mg q8 -Stopped therapeutic anticoagulation for now -Continue to trend inflammatory markers per facility protocol -Continue all supportive care -Contact tracing and testing of her contacts Discussed with the ICU team-RT,RN, Life threatening condition- Severe sepsis with COVID 19 ARDS acute hypoxemic respiratory failure on MVS Mortality/Morbidity- High Complexity of medical decision making- High CONDITION: CRITICAL PROGNOSIS: GUARDED-GRAVE CODE STATUS: FULL CODE The high probability of a clinically significant, sudden or life-threatening deterioration of the [respiratory , cardiovascular, renal, neurology] system(s) required my full and direct attention, intervention and personal management. The aggregate critical care time was [45] minutes without overlap. Time includes spent on; [x] Data Review and interpretation [x] Patient assessment and monitoring of vital signs [x] Documentation [x] Medication orders and management Subjective Date of service: 10/10/19 Principal diagnosis: Ac. hypoxemic resp failure; ARDS; COVID-19 virus infxn; PNA; Severe sepsis Interval history: Patient is seen today for: Ac. hypoxemic resp failure; ARDS; COVID-19 virus infection; Bilateral pneumonia; Severe sepsis; FANI Seen and examined at bedside; 24hour events reviewed; nursing and respiratory care staff consulted; no adverse overnight events reported to me; resting in bed; maintaining oxygen saturations at 100%, placed back supine yesterday at noon, on norepinephrine at 2mcg with MAP >65. s/p Femoral catheter placed yesterday,tolerated first session of HD yesterday 2L of fluid was removed No fevers, on Fentanyl at 4mcg/kg , Midazolam at 5mg/kg and propofol at 50mcg/kg with elevated triglycerides. Blood tinged NGT output with high residuals Currently on AC-VC 450/30/PEEP 20/FIO2 80% ABG 7.19/61.5/121/23.4 Objective Vital Signs - 12hr 10/10/19 10/10/19 10/10/19 05:01 05:15 05:31 Temperature Pulse Rate 85 86 85 Respiratory 30 H 30 H 30 H Rate Blood Pressure 127/54 130/58 133/61 O2 Sat by Pulse 100 98 100 Oximetry 10/10/19 10/10/19 10/10/19 05:45 06:01 06:15 Temperature Pulse Rate 84 83 83 Respiratory 30 H 30 H 30 H Rate Blood Pressure 122/57 117/56 117/56 O2 Sat by Pulse 99 95 95 Oximetry 10/10/19 10/10/19 10/10/19 06:31 06:45 07:01 Temperature Pulse Rate 84 84 82 Respiratory 30 H 30 H 30 H Rate Blood Pressure 126/60 121/58 120/59 O2 Sat by Pulse 98 99 98 Oximetry 10/10/19 10/10/19 10/10/19 07:15 07:31 07:45 Temperature Pulse Rate 82 81 81 Respiratory 30 H 30 H 30 H Rate Blood Pressure 118/63 115/57 118/57 O2 Sat by Pulse 96 97 97 Oximetry 10/10/19 10/10/19 10/10/19 08:00 08:01 08:15 Temperature 97.3 F L Pulse Rate 80 81 81 Respiratory 30 H 30 H 30 H Rate Blood Pressure 116/62 115/57 117/58 O2 Sat by Pulse 98 97 97 Oximetry 10/10/19 10/10/19 10/10/19 08:31 08:45 09:00 Temperature Pulse Rate 81 81 85 Respiratory 30 H 30 H 30 H Rate Blood Pressure 115/60 116/62 O2 Sat by Pulse 98 99 98 Oximetry 10/10/19 10/10/19 10/10/19 09:16 09:30 09:46 Temperature Pulse Rate 85 82 82 Respiratory 30 H 30 H 30 H Rate Blood Pressure 144/75 138/75 127/70 O2 Sat by Pulse 98 99 99 Oximetry 10/10/19 10/10/19 10/10/19 10:00 10:16 10:30 Temperature Pulse Rate 81 81 81 Respiratory 30 H 30 H 30 H Rate Blood Pressure 119/68 132/64 118/65 O2 Sat by Pulse 99 99 99 Oximetry 10/10/19 10/10/19 10/10/19 10:46 11:00 11:16 Temperature Pulse Rate 82 82 82 Respiratory 30 H 30 H 30 H Rate Blood Pressure 127/68 130/67 121/69 O2 Sat by Pulse 98 99 99 Oximetry 10/10/19 10/10/19 10/10/19 11:30 11:46 11:47 Temperature Pulse Rate 82 81 81 Respiratory 30 H 30 H Rate Blood Pressure 131/70 122/68 122/68 O2 Sat by Pulse 98 98 99 Oximetry 10/10/19 10/10/19 10/10/19 12:00 12:16 12:30 Temperature 97.6 F Pulse Rate 81 80 80 Respiratory 30 H 30 H 30 H Rate Blood Pressure 124/69 127/64 120/69 O2 Sat by Pulse 98 98 98 Oximetry 10/10/19 10/10/19 10/10/19 12:46 13:00 13:16 Temperature Pulse Rate 81 80 81 Respiratory 30 H 30 H 30 H Rate Blood Pressure 120/69 123/70 127/69 O2 Sat by Pulse 99 99 98 Oximetry 10/10/19 10/10/19 10/10/19 13:30 13:46 14:00 Temperature Pulse Rate 81 80 82 Respiratory 30 H 30 H 30 H Rate Blood Pressure 128/69 122/68 130/66 O2 Sat by Pulse 98 98 98 Oximetry 10/10/19 10/10/19 10/10/19 14:16 14:30 14:46 Temperature Pulse Rate 86 85 86 Respiratory 30 H 30 H 30 H Rate Blood Pressure 128/69 160/78 163/80 O2 Sat by Pulse 98 98 98 Oximetry 10/10/19 10/10/19 10/10/19 15:00 15:15 15:30 Temperature Pulse Rate 84 84 83 Respiratory Rate Blood Pressure 138/71 138/75 137/75 O2 Sat by Pulse Oximetry 10/10/19 16:00 Temperature Pulse Rate 101 H Respiratory Rate Blood Pressure 117/52 O2 Sat by Pulse 90 Oximetry Constitutional: appears uncomfortable, other (elderly looking AAF with mildly increased resp effort at rest on mvs, supine) Eyes: non-icteric ENT: other (ETT 24 cm GLYNN, NGT with pinkiish effluent) Neck: supple, no lymphadenopathy, no JVD Effort: mildly labored Ascultation: Bilateral: diminished breath sounds, rales Percussion: Bilateral: not dull Cardiovascular: regular rate and rhythm, other (S1,S2, no murmurs) Gastrointestinal: normoactive bowel sounds, soft, non-tender, non-distended Integumentary: normal Extremities: no cyanosis, no edema, pulses normal, no ischemia or petechiae, other (Femoral HD catheter) Neurologic: other (unable to assess, sedated) Psychiatric: other (unable to assess, sedated) CBC and BMP: 10/10/19 06:15 10/10/19 06:15 ABG, PT/INR, D-dimer: ABG ABG pH 7.247 pH Units (7.350-7.450) L 10/10/19 03:35 ABG pCO2 50.0 mm Hg 10/10/19 03:35 ABG pO2 98.8 mm Hg (80.0-90.0) H 10/10/19 03:35 ABG O2 Saturation 96.7 % (95.0-99.0) 10/10/19 03:35 PT/INR, D-dimer PT 14.5 Sec. (12.2-14.9) 10/01/19 05:36 INR 1.15 (0.87-1.13) H 10/01/19 05:36 D-Dimer > 90151 ng/mlDDU (0-234) H 10/05/19 12:10 Abnormal lab findings: Abnormal Labs 10/01/19 10/01/19 10/01/19 05:36 05:36 05:36 WBC RBC Hgb Hct RDW Plt Count Towns # Seg Neuts % (Manual) Lymphocytes % (Manual) Nucleated RBC % Seg Neutrophils # Seg Neutrophils # Man Lymphocytes # (Manual) Monocytes # (Manual) INR 1.15 H D-Dimer 1648.23 H ABG pH ABG pO2 ABG HCO3 ABG O2 Saturation ABG Base Excess ABG Hemoglobin Oxyhemoglobin Sodium Potassium Chloride Carbon Dioxide BUN Creatinine Glucose 424 H POC Glucose Lactic Acid Calcium Phosphorus Magnesium Ferritin 1745.0 H AST ALT Alkaline Phosphatase Lactate Dehydrogenase 822 H C-Reactive Protein 15.10 H NT-Pro-B Natriuret Pep Total Protein Albumin Triglycerides Urine WBC (Auto) Urine Creatinine Urine Total Protein Coronavirus (PCR) 10/01/19 10/01/19 10/01/19 05:36 05:36 06:31 WBC 12.8 H RBC Hgb Hct RDW Plt Count Towns # Seg Neuts % (Manual) 93.0 H Lymphocytes % (Manual) 2.0 L Nucleated RBC % Seg Neutrophils # Seg Neutrophils # Man 11.9 H Lymphocytes # (Manual) 0.3 L Monocytes # (Manual) INR D-Dimer ABG pH ABG pO2 ABG HCO3 ABG O2 Saturation ABG Base Excess ABG Hemoglobin Oxyhemoglobin Sodium Potassium Chloride Carbon Dioxide 13 L BUN 34 H Creatinine 1.4 H Glucose 413 H POC Glucose Lactic Acid 7.20 H* Calcium Phosphorus Magnesium Ferritin AST 54 H ALT 64 H Alkaline Phosphatase Lactate Dehydrogenase C-Reactive Protein NT-Pro-B Natriuret Pep Total Protein Albumin 3.4 L Triglycerides Urine WBC (Auto) Urine Creatinine Urine Total Protein Coronavirus (PCR) 10/01/19 10/01/19 10/01/19 09:10 10:05 12:24 WBC RBC Hgb Hct RDW Plt Count Towns # Seg Neuts % (Manual) Lymphocytes % (Manual) Nucleated RBC % Seg Neutrophils # Seg Neutrophils # Man Lymphocytes # (Manual) Monocytes # (Manual) INR D-Dimer 1957.06 H ABG pH ABG pO2 ABG HCO3 ABG O2 Saturation ABG Base Excess ABG Hemoglobin Oxyhemoglobin Sodium Potassium Chloride Carbon Dioxide BUN Creatinine Glucose POC Glucose 354 H Lactic Acid Calcium Phosphorus Magnesium Ferritin AST ALT Alkaline Phosphatase Lactate Dehydrogenase C-Reactive Protein NT-Pro-B Natriuret Pep Total Protein Albumin Triglycerides Urine WBC (Auto) Urine Creatinine 179.4 H Urine Total Protein Coronavirus (PCR) 10/01/19 10/01/19 10/01/19 12:24 12:24 12:45 WBC RBC Hgb Hct RDW Plt Count Towns # Seg Neuts % (Manual) Lymphocytes % (Manual) Nucleated RBC % Seg Neutrophils # Seg Neutrophils # Man Lymphocytes # (Manual) Monocytes # (Manual) INR D-Dimer ABG pH ABG pO2 ABG HCO3 ABG O2 Saturation ABG Base Excess ABG Hemoglobin Oxyhemoglobin Sodium Potassium Chloride Carbon Dioxide BUN Creatinine Glucose 346 H POC Glucose Lactic Acid Calcium Phosphorus 4.70 H Magnesium 2.50 H Ferritin 1646.0 H AST ALT Alkaline Phosphatase Lactate Dehydrogenase 766 H C-Reactive Protein 18.60 H NT-Pro-B Natriuret Pep 1525 H Total Protein Albumin Triglycerides Urine WBC (Auto) Urine Creatinine Urine Total Protein Coronavirus (PCR) 10/01/19 10/01/19 10/01/19 14:30 17:20 18:15 WBC RBC Hgb Hct RDW Plt Count Towns # Seg Neuts % (Manual) Lymphocytes % (Manual) Nucleated RBC % Seg Neutrophils # Seg Neutrophils # Man Lymphocytes # (Manual) Monocytes # (Manual) INR D-Dimer ABG pH 7.263 L 7.289 L ABG pO2 60.7 L 52.1 L ABG HCO3 ABG O2 Saturation 88.2 L 83.2 L ABG Base Excess -6.4 L -4.8 L ABG Hemoglobin 10.5 L Oxyhemoglobin 86.6 L 81.4 L Sodium Potassium Chloride Carbon Dioxide BUN Creatinine Glucose POC Glucose 299 H Lactic Acid Calcium Phosphorus Magnesium Ferritin AST ALT Alkaline Phosphatase Lactate Dehydrogenase C-Reactive Protein NT-Pro-B Natriuret Pep Total Protein Albumin Triglycerides Urine WBC (Auto) Urine Creatinine Urine Total Protein Coronavirus (PCR) 10/01/19 10/01/19 10/01/19 21:08 21:35 Unknown WBC RBC Hgb Hct RDW Plt Count Town[place] # Seg Neuts % (Manual) Lymphocytes % (Manual) Nucleated RBC % Seg Neutrophils # Seg Neutrophils # Man Lymphocytes # (Manual) Monocytes # (Manual) INR D-Dimer ABG pH 7.327 L ABG pO2 75.1 L ABG HCO3 ABG O2 Saturation 94.5 L ABG Base Excess -4.4 L ABG Hemoglobin Oxyhemoglobin 92.8 L Sodium Potassium Chloride Carbon Dioxide BUN Creatinine Glucose POC Glucose 266 H Lactic Acid Calcium Phosphorus Magnesium Ferritin AST ALT Alkaline Phosphatase Lactate Dehydrogenase C-Reactive Protein NT-Pro-B Natriuret Pep Total Protein Albumin Triglycerides Urine WBC (Auto) Urine Creatinine Urine Total Protein Coronavirus (PCR) Positive A 10/02/19 10/02/19 10/02/19 01:23 03:55 05:18 WBC 17.8 H RBC Hgb Hct RDW Plt Count [place] # Seg Neuts % (Manual) 93.0 H Lymphocytes % (Manual) 5.0 L Nucleated RBC % 1.0 H Seg Neutrophils # Seg Neutrophils # Man 16.6 H Lymphocytes # (Manual) 0.9 L Monocytes # (Manual) INR D-Dimer ABG pH 7.308 L ABG pO2 129.3 H ABG HCO3 ABG O2 Saturation ABG Base Excess -4.9 L ABG Hemoglobin 16.1 H Oxyhemoglobin Sodium Potassium Chloride Carbon Dioxide BUN Creatinine Glucose POC Glucose 291 H Lactic Acid Calcium Phosphorus Magnesium Ferritin AST ALT Alkaline Phosphatase Lactate Dehydrogenase C-Reactive Protein NT-Pro-B Natriuret Pep Total Protein Albumin Triglycerides Urine WBC (Auto) Urine Creatinine Urine Total Protein Coronavirus (PCR) 10/02/19 10/02/19 10/02/19 05:18 07:15 15:28 WBC RBC Hgb Hct RDW Plt Count [place] # Seg Neuts % (Manual) Lymphocytes % (Manual) Nucleated RBC % Seg Neutrophils # Seg Neutrophils # Man Lymphocytes # (Manual) Monocytes # (Manual) INR D-Dimer ABG pH ABG pO2 ABG HCO3 ABG O2 Saturation ABG Base Excess ABG Hemoglobin Oxyhemoglobin Sodium Potassium Chloride 111.1 H Carbon Dioxide 19 L BUN 44 H Creatinine 2.4 H D Glucose 227 H POC Glucose 196 H Lactic Acid Calcium Phosphorus Magnesium Ferritin AST ALT Alkaline Phosphatase Lactate Dehydrogenase C-Reactive Protein NT-Pro-B Natriuret Pep Total Protein Albumin Triglycerides Urine WBC (Auto) Urine Creatinine 336.4 H Urine Total Protein Coronavirus (PCR) 10/02/19 10/03/19 10/03/19 17:57 00:32 04:02 WBC 17.2 H RBC Hgb Hct RDW Plt Count [place] # Seg Neuts % (Manual) 95.0 H Lymphocytes % (Manual) 3.0 L Nucleated RBC % 2.0 H Seg Neutrophils # Seg Neutrophils # Man 16.3 H Lymphocytes # (Manual) 0.5 L Monocytes # (Manual) INR D-Dimer ABG pH ABG pO2 ABG HCO3 ABG O2 Saturation ABG Base Excess ABG Hemoglobin Oxyhemoglobin Sodium Potassium Chloride Carbon Dioxide BUN Creatinine Glucose POC Glucose 137 H 184 H Lactic Acid Calcium Phosphorus Magnesium Ferritin AST ALT Alkaline Phosphatase Lactate Dehydrogenase C-Reactive Protein NT-Pro-B Natriuret Pep Total Protein Albumin Triglycerides Urine WBC (Auto) Urine Creatinine Urine Total Protein Coronavirus (PCR) 10/03/19 10/03/19 10/03/19 04:02 04:26 05:20 WBC RBC Hgb Hct RDW Plt Count [place] # Seg Neuts % (Manual) Lymphocytes % (Manual) Nucleated RBC % Seg Neutrophils # Seg Neutrophils # Man Lymphocytes # (Manual) Monocytes # (Manual) INR D-Dimer ABG pH 7.336 L ABG pO2 70.1 L ABG HCO3 ABG O2 Saturation 94.0 L ABG Base Excess -3.8 L ABG Hemoglobin Oxyhemoglobin 92.4 L Sodium Potassium Chloride 108.9 H Carbon Dioxide 19 L BUN 64 H Creatinine 2.1 H Glucose 212 H POC Glucose 197 H Lactic Acid Calcium Phosphorus Magnesium Ferritin AST ALT Alkaline Phosphatase Lactate Dehydrogenase C-Reactive Protein NT-Pro-B Natriuret Pep Total Protein Albumin Triglycerides Urine WBC (Auto) Urine Creatinine Urine Total Protein Coronavirus (PCR) 10/03/19 10/03/19 10/03/19 11:22 11:58 18:44 WBC RBC Hgb Hct RDW Plt Count [place] # Seg Neuts % (Manual) Lymphocytes % (Manual) Nucleated RBC % Seg Neutrophils # Seg Neutrophils # Man Lymphocytes # (Manual) Monocytes # (Manual) INR D-Dimer ABG pH ABG pO2 ABG HCO3 ABG O2 Saturation ABG Base Excess ABG Hemoglobin Oxyhemoglobin Sodium Potassium Chloride Carbon Dioxide BUN Creatinine Glucose POC Glucose 248 H 245 H 324 H Lactic Acid Calcium Phosphorus Magnesium Ferritin AST ALT Alkaline Phosphatase Lactate Dehydrogenase C-Reactive Protein NT-Pro-B Natriuret Pep Total Protein Albumin Triglycerides Urine WBC (Auto) Urine Creatinine Urine Total Protein Coronavirus (PCR) 10/03/19 10/04/19 10/04/19 23:51 03:50 05:35 WBC RBC Hgb Hct RDW Plt Count [place] # Seg Neuts % (Manual) Lymphocytes % (Manual) Nucleated RBC % Seg Neutrophils # Seg Neutrophils # Man Lymphocytes # (Manual) Monocytes # (Manual) INR D-Dimer ABG pH ABG pO2 129.4 H ABG HCO3 ABG O2 Saturation ABG Base Excess -3.5 L ABG Hemoglobin Oxyhemoglobin Sodium Potassium Chloride Carbon Dioxide BUN Creatinine Glucose POC Glucose 182 H 177 H Lactic Acid Calcium Phosphorus Magnesium Ferritin AST ALT Alkaline Phosphatase Lactate Dehydrogenase C-Reactive Protein NT-Pro-B Natriuret Pep Total Protein Albumin Triglycerides Urine WBC (Auto) Urine Creatinine Urine Total Protein Coronavirus (PCR) 10/04/19 10/04/19 10/04/19 11:39 16:30 16:30 WBC 21.2 H RBC Hgb Hct RDW 16.0 H Plt Count 93 L Towns # Seg Neuts % (Manual) 92.0 H Lymphocytes % (Manual) 3.0 L Nucleated RBC % 4.0 H Seg Neutrophils # Seg Neutrophils # Man 19.5 H Lymphocytes # (Manual) 0.6 L Monocytes # (Manual) 1.1 H INR D-Dimer ABG pH ABG pO2 ABG HCO3 ABG O2 Saturation ABG Base Excess ABG Hemoglobin Oxyhemoglobin Sodium Potassium Chloride 109.0 H Carbon Dioxide 21 L BUN 94 H Creatinine 2.3 H Glucose 345 H POC Glucose 265 H Lactic Acid Calcium Phosphorus Magnesium Ferritin AST ALT Alkaline Phosphatase Lactate Dehydrogenase C-Reactive Protein NT-Pro-B Natriuret Pep Total Protein Albumin Triglycerides Urine WBC (Auto) Urine Creatinine Urine Total Protein Coronavirus (PCR) 10/04/19 10/04/19 10/04/19 18:04 18:50 23:19 WBC RBC Hgb Hct RDW Plt Count [place] # Seg Neuts % (Manual) Lymphocytes % (Manual) Nucleated RBC % Seg Neutrophils # Seg Neutrophils # Man Lymphocytes # (Manual) Monocytes # (Manual) INR D-Dimer ABG pH 7.322 L ABG pO2 183.3 H ABG HCO3 18.1 L ABG O2 Saturation 99.1 H ABG Base Excess -7.2 L ABG Hemoglobin 11.8 L Oxyhemoglobin Sodium Potassium Chloride Carbon Dioxide BUN Creatinine Glucose POC Glucose 333 H 366 H Lactic Acid Calcium Phosphorus Magnesium Ferritin AST ALT Alkaline Phosphatase Lactate Dehydrogenase C-Reactive Protein NT-Pro-B Natriuret Pep Total Protein Albumin Triglycerides Urine WBC (Auto) Urine Creatinine Urine Total Protein Coronavirus (PCR) 10/05/19 10/05/19 10/05/19 04:00 05:05 06:00 WBC RBC Hgb Hct RDW Plt Count [place] # Seg Neuts % (Manual) Lymphocytes % (Manual) Nucleated RBC % Seg Neutrophils # Seg Neutrophils # Man Lymphocytes # (Manual) Monocytes # (Manual) INR D-Dimer ABG pH 7.223 L ABG pO2 93.7 H ABG HCO3 19.4 L ABG O2 Saturation ABG Base Excess -8.3 L ABG Hemoglobin Oxyhemoglobin Sodium Potassium Chloride Carbon Dioxide BUN Creatinine Glucose POC Glucose 362 H Lactic Acid Calcium Phosphorus Magnesium Ferritin AST ALT Alkaline Phosphatase Lactate Dehydrogenase C-Reactive Protein NT-Pro-B Natriuret Pep Total Protein Albumin Triglycerides 518 H Urine WBC (Auto) Urine Creatinine Urine Total Protein Coronavirus (PCR) 10/05/19 10/05/19 10/05/19 06:00 06:00 10:16 WBC 18.6 H RBC Hgb Hct RDW 16.6 H Plt Count 78 L [place] # Seg Neuts % (Manual) 95.0 H Lymphocytes % (Manual) 0 L Nucleated RBC % 4.0 H Seg Neutrophils # Seg Neutrophils # Man 17.7 H Lymphocytes # (Manual) 0.0 L Monocytes # (Manual) INR D-Dimer ABG pH ABG pO2 ABG HCO3 ABG O2 Saturation ABG Base Excess ABG Hemoglobin Oxyhemoglobin Sodium Potassium 5.2 H Chloride 110.9 H Carbon Dioxide 17 L BUN 101 H Creatinine 3.2 H Glucose 368 H POC Glucose Lactic Acid Calcium Phosphorus Magnesium Ferritin AST ALT Alkaline Phosphatase Lactate Dehydrogenase C-Reactive Protein NT-Pro-B Natriuret Pep Total Protein Albumin Triglycerides Urine WBC (Auto) Urine Creatinine 179.4 H Urine Total Protein 66 H Coronavirus (PCR) 10/05/19 10/05/19 10/05/19 10:17 11:43 12:10 WBC RBC Hgb Hct RDW Plt Count [place] # Seg Neuts % (Manual) Lymphocytes % (Manual) Nucleated RBC % Seg Neutrophils # Seg Neutrophils # Man Lymphocytes # (Manual) Monocytes # (Manual) INR D-Dimer > 56345 H ABG pH ABG pO2 ABG HCO3 ABG O2 Saturation ABG Base Excess ABG Hemoglobin Oxyhemoglobin Sodium Potassium Chloride Carbon Dioxide BUN Creatinine Glucose POC Glucose 328 H Lactic Acid Calcium Phosphorus Magnesium Ferritin AST ALT Alkaline Phosphatase Lactate Dehydrogenase C-Reactive Protein NT-Pro-B Natriuret Pep Total Protein Albumin Triglycerides Urine WBC (Auto) 25.0 H Urine Creatinine Urine Total Protein Coronavirus (PCR) 10/05/19 10/05/19 10/06/19 17:35 17:57 00:46 WBC RBC Hgb Hct RDW Plt Count [place] # Seg Neuts % (Manual) Lymphocytes % (Manual) Nucleated RBC % Seg Neutrophils # Seg Neutrophils # Man Lymphocytes # (Manual) Monocytes # (Manual) INR D-Dimer ABG pH ABG pO2 ABG HCO3 ABG O2 Saturation ABG Base Excess -3.8 L ABG Hemoglobin Oxyhemoglobin Sodium Potassium Chloride Carbon Dioxide BUN Creatinine Glucose POC Glucose 292 H 295 H Lactic Acid Calcium Phosphorus Magnesium Ferritin AST ALT Alkaline Phosphatase Lactate Dehydrogenase C-Reactive Protein NT-Pro-B Natriuret Pep Total Protein Albumin Triglycerides Urine WBC (Auto) Urine Creatinine Urine Total Protein Coronavirus (PCR) 10/06/19 10/06/19 10/06/19 03:32 06:07 06:07 WBC 20.5 H RBC Hgb Hct RDW 15.6 H Plt Count 79 L Town[place] # 0.9 H Seg Neuts % (Manual) 91.0 H Lymphocytes % (Manual) 0 L Nucleated RBC % 2.0 H Seg Neutrophils # 18.4 H Seg Neutrophils # Man 18.7 H Lymphocytes # (Manual) 0.0 L Monocytes # (Manual) INR D-Dimer ABG pH 7.339 L ABG pO2 ABG HCO3 ABG O2 Saturation ABG Base Excess -2.4 L ABG Hemoglobin 11.5 L Oxyhemoglobin 94.5 L Sodium 147 H Potassium Chloride 108.6 H Carbon Dioxide BUN 102 H Creatinine 3.2 H Glucose 305 H POC Glucose Lactic Acid Calcium 7.8 L Phosphorus Magnesium Ferritin AST ALT Alkaline Phosphatase Lactate Dehydrogenase C-Reactive Protein NT-Pro-B Natriuret Pep Total Protein Albumin Triglycerides Urine WBC (Auto) Urine Creatinine Urine Total Protein Coronavirus (PCR) 10/06/19 10/06/19 10/06/19 06:07 06:33 10:25 WBC RBC Hgb Hct RDW Plt Count [place] # Seg Neuts % (Manual) Lymphocytes % (Manual) Nucleated RBC % Seg Neutrophils # Seg Neutrophils # Man Lymphocytes # (Manual) Monocytes # (Manual) INR D-Dimer ABG pH ABG pO2 ABG HCO3 ABG O2 Saturation ABG Base Excess ABG Hemoglobin Oxyhemoglobin Sodium Potassium Chloride Carbon Dioxide BUN Creatinine Glucose POC Glucose 310 H 304 H Lactic Acid Calcium Phosphorus Magnesium Ferritin AST ALT Alkaline Phosphatase Lactate Dehydrogenase C-Reactive Protein NT-Pro-B Natriuret Pep Total Protein Albumin Triglycerides 467 H Urine WBC (Auto) Urine Creatinine Urine Total Protein Coronavirus (PCR) 10/06/19 10/06/19 10/06/19 16:20 16:51 Unknown WBC RBC Hgb Hct RDW Plt Count [place] # Seg Neuts % (Manual) Lymphocytes % (Manual) Nucleated RBC % Seg Neutrophils # Seg Neutrophils # Man Lymphocytes # (Manual) Monocytes # (Manual) INR D-Dimer ABG pH 7.241 L 7.295 L ABG pO2 49.7 L 48.4 L ABG HCO3 ABG O2 Saturation 79.5 L 81.0 L ABG Base Excess -2.8 L -2.7 L ABG Hemoglobin 11.9 L Oxyhemoglobin 77.4 L 79.2 L Sodium Potassium Chloride Carbon Dioxide BUN Creatinine Glucose POC Glucose 346 H Lactic Acid Calcium Phosphorus Magnesium Ferritin AST ALT Alkaline Phosphatase Lactate Dehydrogenase C-Reactive Protein NT-Pro-B Natriuret Pep Total Protein Albumin Triglycerides Urine WBC (Auto) Urine Creatinine Urine Total Protein Coronavirus (PCR) 10/07/19 10/07/19 10/07/19 00:10 05:00 05:00 WBC 21.1 H RBC Hgb Hct RDW 15.3 H Plt Count 63 L [place] # Seg Neuts % (Manual) 93.0 H Lymphocytes % (Manual) 1.0 L Nucleated RBC % 10.0 H Seg Neutrophils # Seg Neutrophils # Man 19.6 H Lymphocytes # (Manual) 0.2 L Monocytes # (Manual) INR D-Dimer ABG pH ABG pO2 ABG HCO3 ABG O2 Saturation ABG Base Excess ABG Hemoglobin Oxyhemoglobin Sodium 148 H Potassium Chloride Carbon Dioxide BUN 130 H Creatinine 4.2 H Glucose 228 H POC Glucose 227 H Lactic Acid Calcium 8.1 L Phosphorus Magnesium Ferritin AST ALT Alkaline Phosphatase Lactate Dehydrogenase C-Reactive Protein NT-Pro-B Natriuret Pep Total Protein Albumin Triglycerides Urine WBC (Auto) Urine Creatinine Urine Total Protein Coronavirus (PCR) 10/07/19 10/07/19 10/07/19 06:18 08:55 11:04 WBC RBC Hgb Hct RDW Plt Count [place] # Seg Neuts % (Manual) Lymphocytes % (Manual) Nucleated RBC % Seg Neutrophils # Seg Neutrophils # Man Lymphocytes # (Manual) Monocytes # (Manual) INR D-Dimer ABG pH 7.342 L ABG pO2 170.9 H ABG HCO3 ABG O2 Saturation ABG Base Excess -2.9 L ABG Hemoglobin 10.7 L Oxyhemoglobin Sodium 149 H Potassium Chloride 107.7 H Carbon Dioxide BUN 130 H Creatinine 3.8 H Glucose 220 H POC Glucose 223 H Lactic Acid Calcium 8.1 L Phosphorus Magnesium Ferritin AST 136 H ALT 109 H Alkaline Phosphatase 263 H Lactate Dehydrogenase C-Reactive Protein NT-Pro-B Natriuret Pep Total Protein 4.8 L Albumin 2.7 L Triglycerides Urine WBC (Auto) Urine Creatinine Urine Total Protein Coronavirus (PCR) 10/07/19 10/07/19 10/07/19 11:56 19:33 Unknown WBC RBC Hgb Hct RDW Plt Count Towns # Seg Neuts % (Manual) Lymphocytes % (Manual) Nucleated RBC % Seg Neutrophils # Seg Neutrophils # Man Lymphocytes # (Manual) Monocytes # (Manual) INR D-Dimer ABG pH 7.314 L ABG pO2 281.9 H ABG HCO3 ABG O2 Saturation 99.4 H ABG Base Excess ABG Hemoglobin 10.7 L Oxyhemoglobin Sodium Potassium Chloride Carbon Dioxide BUN Creatinine Glucose POC Glucose 225 H 198 H Lactic Acid Calcium Phosphorus Magnesium Ferritin AST ALT Alkaline Phosphatase Lactate Dehydrogenase C-Reactive Protein NT-Pro-B Natriuret Pep Total Protein Albumin Triglycerides Urine WBC (Auto) Urine Creatinine Urine Total Protein Coronavirus (PCR) 10/08/19 10/08/19 10/08/19 00:30 01:16 04:20 WBC 23.4 H RBC 3.45 L Hgb Hct RDW 15.8 H Plt Count 67 L Towns # Seg Neuts % (Manual) 96.0 H Lymphocytes % (Manual) 1.5 L Nucleated RBC % 3.0 H Seg Neutrophils # Seg Neutrophils # Man 22.5 H Lymphocytes # (Manual) 0.4 L Monocytes # (Manual) INR D-Dimer ABG pH 7.309 L ABG pO2 305.9 H ABG HCO3 ABG O2 Saturation ABG Base Excess -4.1 L ABG Hemoglobin Oxyhemoglobin Sodium Potassium Chloride Carbon Dioxide BUN Creatinine Glucose POC Glucose 212 H Lactic Acid Calcium Phosphorus Magnesium Ferritin AST ALT Alkaline Phosphatase Lactate Dehydrogenase C-Reactive Protein NT-Pro-B Natriuret Pep Total Protein Albumin Triglycerides Urine WBC (Auto) Urine Creatinine Urine Total Protein Coronavirus (PCR) 10/08/19 10/08/19 10/08/19 05:45 05:45 05:45 WBC 24.2 H RBC 3.47 L Hgb Hct RDW 15.7 H Plt Count 67 L Towns # Seg Neuts % (Manual) 97.0 H Lymphocytes % (Manual) 0 L Nucleated RBC % 6.0 H Seg Neutrophils # Seg Neutrophils # Man 23.5 H Lymphocytes # (Manual) 0.0 L Monocytes # (Manual) INR D-Dimer ABG pH ABG pO2 ABG HCO3 ABG O2 Saturation ABG Base Excess ABG Hemoglobin Oxyhemoglobin Sodium 148 H Potassium Chloride Carbon Dioxide BUN 137 H Creatinine 3.5 H Glucose 183 H POC Glucose Lactic Acid Calcium Phosphorus Magnesium Ferritin AST ALT Alkaline Phosphatase Lactate Dehydrogenase C-Reactive Protein NT-Pro-B Natriuret Pep Total Protein Albumin Triglycerides 428 H Urine WBC (Auto) Urine Creatinine Urine Total Protein Coronavirus (PCR) 10/08/19 10/08/19 10/08/19 06:06 18:32 21:41 WBC RBC Hgb Hct RDW Plt Count Towns # Seg Neuts % (Manual) Lymphocytes % (Manual) Nucleated RBC % Seg Neutrophils # Seg Neutrophils # Man Lymphocytes # (Manual) Monocytes # (Manual) INR D-Dimer ABG pH ABG pO2 ABG HCO3 ABG O2 Saturation ABG Base Excess ABG Hemoglobin Oxyhemoglobin Sodium Potassium Chloride Carbon Dioxide BUN Creatinine Glucose POC Glucose 192 H 227 H 214 H Lactic Acid Calcium Phosphorus Magnesium Ferritin AST ALT Alkaline Phosphatase Lactate Dehydrogenase C-Reactive Protein NT-Pro-B Natriuret Pep Total Protein Albumin Triglycerides Urine WBC (Auto) Urine Creatinine Urine Total Protein Coronavirus (PCR) 10/09/19 10/09/19 10/09/19 00:43 04:55 05:30 WBC RBC Hgb Hct RDW Plt Count [place] # Seg Neuts % (Manual) Lymphocytes % (Manual) Nucleated RBC % Seg Neutrophils # Seg Neutrophils # Man Lymphocytes # (Manual) Monocytes # (Manual) INR D-Dimer ABG pH 7.196 L* ABG pO2 121.3 H ABG HCO3 ABG O2 Saturation ABG Base Excess -4.9 L ABG Hemoglobin 9.0 L Oxyhemoglobin Sodium Potassium Chloride Carbon Dioxide BUN Creatinine Glucose POC Glucose 206 H Lactic Acid Calcium Phosphorus Magnesium Ferritin AST ALT Alkaline Phosphatase Lactate Dehydrogenase C-Reactive Protein NT-Pro-B Natriuret Pep Total Protein Albumin Triglycerides 427 H Urine WBC (Auto) Urine Creatinine Urine Total Protein Coronavirus (PCR) 10/09/19 10/09/19 10/09/19 05:30 06:22 12:38 WBC RBC Hgb Hct RDW Plt Count [place] # Seg Neuts % (Manual) Lymphocytes % (Manual) Nucleated RBC % Seg Neutrophils # Seg Neutrophils # Man Lymphocytes # (Manual) Monocytes # (Manual) INR D-Dimer ABG pH ABG pO2 ABG HCO3 ABG O2 Saturation ABG Base Excess ABG Hemoglobin Oxyhemoglobin Sodium 147 H Potassium Chloride Carbon Dioxide 21 L BUN 111 H Creatinine 4.0 H Glucose 196 H POC Glucose 196 H 255 H Lactic Acid Calcium Phosphorus Magnesium Ferritin AST ALT Alkaline Phosphatase Lactate Dehydrogenase C-Reactive Protein NT-Pro-B Natriuret Pep Total Protein Albumin Triglycerides Urine WBC (Auto) Urine Creatinine Urine Total Protein Coronavirus (PCR) 10/09/19 10/09/19 10/09/19 16:40 18:23 23:42 WBC RBC Hgb 9.1 L Hct 27.2 L RDW Plt Count [place] # Seg Neuts % (Manual) Lymphocytes % (Manual) Nucleated RBC % Seg Neutrophils # Seg Neutrophils # Man Lymphocytes # (Manual) Monocytes # (Manual) INR D-Dimer ABG pH ABG pO2 ABG HCO3 ABG O2 Saturation ABG Base Excess ABG Hemoglobin Oxyhemoglobin Sodium Potassium Chloride Carbon Dioxide BUN Creatinine Glucose POC Glucose 211 H 221 H Lactic Acid Calcium Phosphorus Magnesium Ferritin AST ALT Alkaline Phosphatase Lactate Dehydrogenase C-Reactive Protein NT-Pro-B Natriuret Pep Total Protein Albumin Triglycerides Urine WBC (Auto) Urine Creatinine Urine Total Protein Coronavirus (PCR) 10/10/19 10/10/19 10/10/19 03:35 06:11 06:15 WBC 28.3 H RBC 2.37 L Hgb 7.1 L Hct 22.0 L RDW 15.9 H Plt Count 75 L [place]s # Seg Neuts % (Manual) 93.0 H Lymphocytes % (Manual) 4.0 L Nucleated RBC % Seg Neutrophils # Seg Neutrophils # Man 26.3 H Lymphocytes # (Manual) 1.1 L Monocytes # (Manual) INR D-Dimer ABG pH 7.247 L ABG pO2 98.8 H ABG HCO3 ABG O2 Saturation ABG Base Excess -5.7 L ABG Hemoglobin 7.3 L Oxyhemoglobin 94.4 L Sodium Potassium Chloride Carbon Dioxide BUN Creatinine Glucose POC Glucose 169 H Lactic Acid Calcium Phosphorus Magnesium Ferritin AST ALT Alkaline Phosphatase Lactate Dehydrogenase C-Reactive Protein NT-Pro-B Natriuret Pep Total Protein Albumin Triglycerides Urine WBC (Auto) Urine Creatinine Urine Total Protein Coronavirus (PCR) 10/10/19 06:15 WBC RBC Hgb Hct RDW Plt Count [place] # Seg Neuts % (Manual) Lymphocytes % (Manual) Nucleated RBC % Seg Neutrophils # Seg Neutrophils # Man Lymphocytes # (Manual) Monocytes # (Manual) INR D-Dimer ABG pH ABG pO2 ABG HCO3 ABG O2 Saturation ABG Base Excess ABG Hemoglobin Oxyhemoglobin Sodium 148 H Potassium Chloride Carbon Dioxide 20 L BUN 153 H Creatinine 5.1 H Glucose 157 H POC Glucose Lactic Acid Calcium Phosphorus Magnesium Ferritin AST ALT Alkaline Phosphatase Lactate Dehydrogenase C-Reactive Protein NT-Pro-B Natriuret Pep Total Protein Albumin Triglycerides Urine WBC (Auto) Urine Creatinine Urine Total Protein Coronavirus (PCR) Allied health notes reviewed: RT
[2019-10-10] MEDS: ALBUMIN HUMAN 25% (25 GM/100 ML) INJ IV PRN (17:14)
--- NOTE | 2019-10-10 17:32 | Progress Note ---
Assessment and Plan Assessment and plan: --COVID positive patient; --Bloodstained/coffee-ground emesis/aspirate from the [place]; Hold tube feeding, IV Protonix, very mild drop in H&H, GI evaluation noted and appreciated, no indication for endoscopy at this point No new episodes of GI bleeding --Acute hypoxic respiratory failure. On vent Continue ventilatory support, wean as tolerated and extubate Pulmonary critical following . --Sepsis: Completed IV antibiotics per ID. Monitor off antibiotics, supportive care --Bilateral pneumonia: Due to COVID-19 , supportive care --ARDS: Ventilatory support, nebulizers, pulmonary critical following --COVID 19 infection. Actemra x1 and remdesivir. Continue to trend inflammatory markers. Consider convalescent plasma therapy per ID. --COVID coagulopathy. Continue with full anticoagulation Eliquis --Transaminitis. Etiology secondary to sepsis/COVID. Continue to trend LFTs. --Acute kidney injury. Etiology secondary to ATN/sepsis superimposed on vasomotor nephropathy. Continue to follow renal function , avoid nephrotoxins, nephrology planning intermittent HD --Coag negative staph bacteremia. Likely contaminant. We will closely monitor patient and adjust management as needed Plan of care reviewed with the patient and her nurse The high probability of a clinically significant, sudden or life threatening deterioration of the [respiratory, infectious, renal and GI] system(s) required my full and direct attention, intervention and personal management. The aggregate critical care time was [35] minutes. This time is in addition to time spent performing reported procedures but includes the following: [x] Data Review and interpretation [x] Patient assessment and monitoring of vital signs [x] Documentation [x] Medication orders and management 10/03/2019. Patient's daughter Evelio Plascencia has consented to convalescent plasma therapy. Await type and screen for patient enrollment. Continue mechanical ventilation per pulmonary. Patient currently AC mode ventilation rate of 20, tidal volume 450 FiO2 70% and PEEP of 12. Continue Solu-Medrol 40 mg IV daily. Wean sedation of propofol and fentanyl as needed. 10/04/2019. Convalescent plasma enrollment form has been submitted. Patient currently on mechanical ventilation AC mode rate 20, tidal volume 450 FiO2 100%. Continue IV Solu-Medrol. Wean sedation of propofol and fentanyl as needed. Patient not a candidate of remdesivir secondary to elevated creatinine. Continue ceftriaxone and azithromycin for total of 5 days. Continue to trend inflammatory markers. Prognosis is extremely guarded. 10/05/2019. Await convalescent plasma. Continue IV steroids, ceftriaxone, azithromycin and full anticoagulation. Creatinine elevated and thus not a vane date for Remdesivir. Patient actually with worsening creatinine secondary to acute kidney injury with ATN in the setting of septic shock superimposed on vasomotor nephropathy. Continue pressors to maintain MAP> 65. 10/06/2019. Patient currently on AC mode ventilation rate 30, tidal volume 450 FiO2 60% and PEEP of 18. Await convalescent plasma. Continue IV steroids, ceftriaxone, azithromycin and full anticoagulation. Creatinine elevated and naun s not a candidate for Remdesivir. 10/07/2019. Patient currently on AC mode ventilation rate 30, tidal volume 450 FiO2 80% and PEEP of 18. Await convalescent plasma. Continue IV steroids, ceftriaxone, azithromycin and full anticoagulation. Creatinine elevated and thus not a candidate for Remdesivir. Cont. proning 10/08/2019. Patient currently on AC mode ventilation rate 30, tidal volume 450 FiO2 70% and PEEP of 20. Await convalescent plasma. Continue IV steroids, ceftriaxone, azithromycin and full anticoagulation. Creatinine elevated and thus not a candidate for Remdesivir. Cont. proning 10/09/19; mild bleeding in NG tube and slight melena, mild drop in H&H, GI consulted 10/10/19; GI evaluated the patient, patient hemodynamically stable, no endoscopy or intervention at this point History Interval history: Patient seen and examined at the bedside this morning Isolation precautions, PPE protocols observed No new episodes of bleeding from the stomach Mild drop in H&H Hemodynamically stable Vital signs reviewed Hospitalist Physical - Constitutional Vitals: Temp Pulse Resp BP Pulse Ox 97.6 F 108 H 30 H 93/54 96 10/10/19 12:00 10/10/19 17:16 10/10/19 17:16 10/10/19 17:16 10/10/19 17:16 General appearance: Present: well-nourished, other (Patient on mechanical ventilation) - EENT Eyes: Present: PERRL, EOM intact - Neck Neck: Present: supple, normal ROM - Respiratory Respiratory effort: normal Respiratory: bilateral: diminished, negative: rales, rhonchi, wheezing - Cardiovascular Rhythm: regular Heart Sounds: Present: S1 & S2 - Extremities Extremities: no ischemia, No edema - Abdominal General gastrointestinal: soft, non-tender, non-distended, normal bowel sounds - Integumentary Integumentary: Present: clear, warm - Psychiatric Psychiatric: appropriate mood/affect, cooperative - Neurologic Neurologic: moves all extremities HEART Score - HEART Score Troponin: Troponin T 0.018 ng/mL (0.00-0.029) 10/01/19 05:36 Results - Labs CBC & Chem 7: 10/10/19 06:15 10/10/19 06:15 Labs: Laboratory Last Values WBC 28.3 K/mm3 (4.5-11.0) H 10/10/19 06:15 RBC 2.37 M/mm3 (3.65-5.03) L 10/10/19 06:15 Hgb 7.1 gm/dl (10.1-14.3) L 10/10/19 06:15 Hct 22.0 % (30.3-42.9) L 10/10/19 06:15 MCV 93 fl (79-97) 10/10/19 06:15 MCH 30 pg (28-32) 10/10/19 06:15 MCHC 32 % (30-34) 10/10/19 06:15 RDW 15.9 % (13.2-15.2) H 10/10/19 06:15 Plt Count 75 K/mm3 (140-440) L 10/10/19 06:15 Lymph % (Auto) Assisted Living Home Director 10/01/19 06:31 Colbert % (Auto) 4.4 % (0.0-7.3) 10/06/19 06:07 Eos % (Auto) 0.1 % (0.0-4.3) 10/06/19 06:07 Baso % (Auto) Assisted Living Home Director 10/01/19 06:31 Lymph # Assisted Living Home Director 10/01/19 06:31 Colbert # 0.9 K/mm3 (0.0-0.8) H 10/06/19 06:07 Eos # 0.0 K/mm3 (0.0-0.4) 10/06/19 06:07 Baso # 0.0 K/mm3 (0.0-0.1) 10/06/19 06:07 Add Manual Diff Complete 10/10/19 06:15 Total Counted 100 07/15/20 06:15 Seg Neutrophils % Assisted Living Home Director 10/10/19 06:15 Seg Neuts % (Manual) 93.0 % (40.0-70.0) H 10/10/19 06:15 Band Neutrophils % 0 % 10/10/19 06:15 Lymphocytes % (Manual) 4.0 % (13.4-35.0) L 10/10/19 06:15 Reactive Lymphs % (Man) 0 % 10/10/19 06:15 Monocytes % (Manual) 3.0 % (0.0-7.3) 10/10/19 06:15 Eosinophils % (Manual) 0 % (0.0-4.3) 10/10/19 06:15 Basophils % (Manual) 0 % (0.0-1.8) 10/10/19 06:15 Metamyelocytes % 0 % 10/10/19 06:15 Myelocytes % 0 % 10/10/19 06:15 Promyelocytes % 0 % 10/10/19 06:15 Blast Cells % 0 % 10/10/19 06:15 Nucleated RBC % Not Reportable 10/10/19 06:15 Seg Neutrophils # 18.4 K/mm3 (1.8-7.7) H 10/06/19 06:07 Seg Neutrophils # Man 26.3 K/mm3 (1.8-7.7) H 10/10/19 06:15 Band Neutrophils # 0.0 K/mm3 10/10/19 06:15 Lymphocytes # (Manual) 1.1 K/mm3 (1.2-5.4) L 10/10/19 06:15 Abs React Lymphs (Man) 0.0 K/mm3 10/10/19 06:15 Monocytes # (Manual) 0.8 K/mm3 (0.0-0.8) 10/10/19 06:15 Eosinophils # (Manual) 0.0 K/mm3 (0.0-0.4) 10/10/19 06:15 Basophils # (Manual) 0.0 K/mm3 (0.0-0.1) 10/10/19 06:15 Metamyelocytes # 0.0 K/mm3 10/10/19 06:15 Myelocytes # 0.0 K/mm3 10/10/19 06:15 Promyelocytes # 0.0 K/mm3 10/10/19 06:15 Blast Cells # 0.0 K/mm3 10/10/19 06:15 WBC Morphology Not Reportable 10/10/19 06:15 Hypersegmented Neuts Not Reportable 10/10/19 06:15 Hyposegmented Neuts Not Reportable 10/10/19 06:15 Hypogranular Neuts Not Reportable 10/10/19 06:15 Smudge Cells Not Reportable 10/10/19 06:15 Toxic Granulation Not Reportable 10/10/19 06:15 Toxic Vacuolation Not Reportable 10/10/19 06:15 Dohle Bodies Not Reportable 10/10/19 06:15 Pelger-Huet Anomaly Not Reportable 10/10/19 06:15 Dona Rods Not Reportable 10/10/19 06:15 Platelet Estimate Not Reportable 10/10/19 06:15 Clumped Platelets Not Reportable 10/10/19 06:15 Plt Clumps, EDTA Not Reportable 10/10/19 06:15 Large Platelets Not Reportable 10/10/19 06:15 Giant Platelets Not Reportable 10/10/19 06:15 Platelet Satelliting Not Reportable 10/10/19 06:15 Plt Morphology Comment Not Reportable 10/10/19 06:15 RBC Morphology Not Reportable 10/10/19 06:15 Dimorphic RBCs Not Reportable 10/10/19 06:15 Polychromasia Not Reportable 10/10/19 06:15 Hypochromasia Not Reportable 10/10/19 06:15 Poikilocytosis Not Reportable 10/10/19 06:15 Anisocytosis Few 10/10/19 06:15 Microcytosis Few 10/10/19 06:15 Macrocytosis Not Reportable 10/10/19 06:15 Spherocytes Not Reportable 10/10/19 06:15 Pappenheimer Bodies Not Reportable 10/10/19 06:15 Sickle Cells Not Reportable 10/10/19 06:15 Target Cells Not Reportable 10/10/19 06:15 Tear Drop Cells Not Reportable 10/10/19 06:15 Ovalocytes Not Reportable 10/10/19 06:15 Helmet Cells Not Reportable 10/10/19 06:15 Madden-Robeline Bodies Not Reportable 10/10/19 06:15 Lincoln Rings Not Reportable 10/10/19 06:15 [place] Cells Not Reportable 10/10/19 06:15 Bite Cells Not Reportable 10/10/19 06:15 Crenated Cell Not Reportable 10/10/19 06:15 Elliptocytes Not Reportable 10/10/19 06:15 Acanthocytes (Spur) Not Reportable 10/10/19 06:15 Rouleaux Not Reportable 10/10/19 06:15 Hemoglobin C Crystals Not Reportable 10/10/19 06:15 Schistocytes Not Reportable 10/10/19 06:15 Malaria parasites Not Reportable 10/10/19 06:15 Cornelio Bodies Not Reportable 10/10/19 06:15 Hem Pathologist Commnt No 10/10/19 06:15 PT 14.5 Sec. (12.2-14.9) 10/01/19 05:36 INR 1.15 (0.87-1.13) H 10/01/19 05:36 APTT 28.6 Sec. (24.2-36.6) 10/01/19 05:36 D-Dimer > 49253 ng/mlDDU (0-234) H 10/05/19 12:10 Heparin Anti-Xa, Unfract Negative (Negative) 10/05/19 12:10 ABG pH 7.247 pH Units (7.350-7.450) L 10/10/19 03:35 ABG pCO2 50.0 mm Hg 10/10/19 03:35 ABG pO2 98.8 mm Hg (80.0-90.0) H 10/10/19 03:35 ABG HCO3 21.3 mmol/L (20.0-26.0) 10/10/19 03:35 ABG O2 Saturation 96.7 % (95.0-99.0) 10/10/19 03:35 ABG O2 Content 9.9 (0.0-44) 10/10/19 03:35 ABG Base Excess -5.7 mmol/L (-2.0-3.0) L 10/10/19 03:35 ABG Hemoglobin 7.3 gm/dl (12.0-16.0) L 10/10/19 03:35 ABG Carboxyhemoglobin 1.8 % (0.0-5.0) 10/10/19 03:35 ABG Methemoglobin 0.6 % (0.0-1.5) 10/10/19 03:35 Oxyhemoglobin 94.4 % (95.0-99.0) L 10/10/19 03:35 FiO2 50 % 10/10/19 03:35 Sodium 148 mmol/L (137-145) H 10/10/19 06:15 Potassium 4.9 mmol/L (3.6-5.0) 10/10/19 06:15 Chloride 104.3 mmol/L (98-107) 10/10/19 06:15 Carbon Dioxide 20 mmol/L (22-30) L 10/10/19 06:15 Anion Gap 29 mmol/L 10/10/19 06:15 BUN 153 mg/dL (7-17) H 10/10/19 06:15 Creatinine 5.1 mg/dL (0.7-1.2) H 10/10/19 06:15 Estimated GFR 10 ml/min 10/10/19 06:15 BUN/Creatinine Ratio 30 % 10/10/19 06:15 Glucose 157 mg/dL (65-100) H 10/10/19 06:15 POC Glucose 169 (70-105) H 10/10/19 06:11 Ketones Quantitative Negative (Negative) 10/01/19 06:31 Lactic Acid 1.80 mmol/L (0.7-2.0) 10/02/19 08:04 Calcium 8.9 mg/dL (8.4-10.2) 10/10/19 06:15 Phosphorus 4.70 mg/dL (2.5-4.5) H 10/01/19 12:45 Magnesium 2.50 mg/dL (1.7-2.3) H 10/01/19 12:45 Ferritin 1646.0 ng/mL (13.0-400.0) H 10/01/19 12:24 Total Bilirubin 0.30 mg/dL (0.1-1.2) 10/07/19 11:04 Direct Bilirubin < 0.2 mg/dL (0-0.2) 10/01/19 05:36 Indirect Bilirubin 0.1 mg/dL 10/01/19 05:36 AST 136 units/L (5-40) H 10/07/19 11:04 ALT 109 units/L (7-56) H 10/07/19 11:04 Alkaline Phosphatase 263 units/L (35-129) H 10/07/19 11:04 Lactate Dehydrogenase 766 units/L (91-180) H 10/01/19 12:24 Troponin T 0.018 ng/mL (0.00-0.029) 10/01/19 05:36 C-Reactive Protein 18.60 mg/dL (0.00-1.30) H 10/01/19 12:24 NT-Pro-B Natriuret Pep 1525 pg/mL (0-900) H 10/01/19 12:45 Total Protein 4.8 g/dL (6.3-8.2) L 10/07/19 11:04 Albumin 2.7 g/dL (3.9-5) L 10/07/19 11:04 Albumin/Globulin Ratio 1.3 % 10/07/19 11:04 Triglycerides 144 mg/dL (2-149) 10/10/19 06:15 Procalcitonin 1.73 ng/mL (<0.15) 10/01/19 12:24 Urine Color Yellow (Yellow) 10/05/19 10:17 Urine Turbidity Cloudy (Clear) 10/05/19 10:17 Urine pH 5.0 (5.0-7.0) 10/05/19 10:17 Ur Specific Danese 1.018 (1.003-1.030) 10/05/19 10:17 Urine Protein 30 mg/dl mg/dL (Negative) 10/05/19 10:17 Urine Glucose (UA) Neg mg/dL (Negative) 10/05/19 10:17 Urine Ketones Neg mg/dL (Negative) 10/05/19 10:17 Urine Blood Mod (Negative) 10/05/19 10:17 Urine Nitrite Neg (Negative) 10/05/19 10:17 Urine Bilirubin Neg (Negative) 10/05/19 10:17 Urine Urobilinogen < 2.0 mg/dL (<2.0) 10/05/19 10:17 Ur Leukocyte Esterase Neg (Negative) 10/05/19 10:17 Urine WBC (Auto) 25.0 /HPF (0.0-6.0) H 10/05/19 10:17 Urine RBC (Auto) 109.0 /HPF (0.0-6.0) 10/05/19 10:17 U Epithel Cells (Auto) 3.0 /HPF (0-13.0) 10/05/19 10:17 Urine Bacteria (Auto) 1+ /HPF (Negative) 10/05/19 10:17 Urine Mucus Few /HPF 10/05/19 10:17 Urine Creatinine 179.4 mg/dL (0.1-20.0) H 10/05/19 10:16 Urine Microalbumin 6.7 mg/dL (0.1-34.0) 10/01/19 09:10 Microalb/Creat Ratio 37.3 ug/mg 10/01/19 09:10 Urine Sodium 10 mmol/L 10/05/19 10:16 Urine Total Protein 66 mg/dL (5-11.8) H 10/05/19 10:16 Heparin-induced Plt Ab Negative (Negative) 10/05/19 12:10 UF Heparin High Dose 1 % Release 10/05/19 12:10 KIRA UFH Low Dose 0.1 0 % Release 10/05/19 12:10 KIRA UFH Low Dose 0.5 0 % Release 10/05/19 12:10 Coronavirus (PCR) Positive (Negative) A 10/01/19 Unknown Hepatitis A IgM Ab -1 (NonReactive) 10/08/19 08:30 Hep Bs Antigen Non-reactive (Negative) 10/08/19 08:30 Hep B Core IgM Ab Non-reactive (NonReactive) 10/08/19 08:30 Hepatitis C Antibody Non-reactive (NonReactive) 10/08/19 08:30 Blood Type B POSITIVE 10/03/19 13:50 Antibody Screen Negative 10/03/19 13:50 - Diagnostic Impressions Diagnostic Impressions: Echocardiogram 10/02/19 19:48 Transthoracic Echocardiogram Indication: Elevated BNP BP: 78/37 HR: 75 Conclusions *Global left ventricular systolic function is normal. *The estimated ejection fraction is 50-55%. *The right ventricular global systolic function is normal. *There is mild to moderate tricuspid regurgitation. *The right ventricular systolic pressure is calculated at 75 mmHg. *There is no evidence of mitral regurgitation. *There is no evidence of aortic regurgitation. *There is trace pulmonic regurgitation. *There is no pericardial effusion. *There is evidence of severe pulmonary hypertension. Findings Left Ventricle: Global left ventricular wall motion and contractility are within normal limits. Global left ventricular systolic function is normal. The estimated ejection fraction is 50-55%. Abnormal left ventricular diastolic filling is observed, consistent with impaired relaxation. Left Atrium: The left atrial chamber size is normal. Right Ventricle: The right ventricular cavity size is normal. The right ventricular global systolic function is normal. Right Atrium: The right atrial cavity size is normal. Aortic Valve: The aortic valve leaflets are mildly thickened. There is no evidence of aortic regurgitation. Mitral Valve: The mitral valve leaflets are mildly thickened. There is no evidence of mitral regurgitation. Tricuspid Valve: The tricuspid valve leaflets are normal. There is mild to moderate tricuspid regurgitation. The right ventricular systolic pressure is calculated at 75 mmHg. There is evidence of severe pulmonary hypertension. Pulmonic Valve: The pulmonic valve appears normal. There is trace pulmonic regurgitation. Pericardium: There is no pericardial effusion. Aorta: The aorta appears normal. Venous: The inferior vena cava appears normal. Measurements Chambers 2D Name Value Normal Range IVSd (2D) 1.1 cm (0.6 - 1.1) LVPWd (2D) 1.03 cm (0.6 - 1.1) IVS:LVPW ratio (2D) 1.07 ratio - LVIDd (2D) 2.7 cm (3.7 - 5.6) LVIDs (2D) 2.02 cm (2 - 3.8) LV FS (Teichholz) (2D) 25.2 % - LV FS (cube) (2D) 25.2 % - EF Teichholz (2D) 51.5 % - Ao root diameter (2D) 2.4 cm (2 - 3.7) LA dimension (AP) 2D 2.9 cm (1.9 - 4) LA:Ao ratio (2D) 1.21 ratio - Volumes/Mass Name Value Normal Range LA ESV SP 4CH (MOD) 23 ml - LA ESV SP 2CH (MOD) 21 ml - LA ESV BP (MOD) 22 ml - LA ESV BP (MOD) index 13.6 ml/m2 - LV EDV SP 4CH (MOD) 54 ml - LV ESV SP 4CH (MOD) 20 ml - EF SP 4CH (MOD) 63 % - LV EDV SP 2CH (MOD) 48 ml - LV ESV SP 2CH (MOD) 20 ml - EF SP 2CH (MOD) 58 % - LV EDV BP 51 ml - LV ESV BP 20 ml - BP EF (MOD) 61 % - Diastolic/Systolic Function Name Value Normal Range MV E-wave Vmax 0.94 m/sec - MV deceleration time 218 msec - MV A-wave Vmax 1.06 m/sec - MV E:A ratio 0.9 ratio - LV septal e' Vmax 0.08 m/sec - LV lateral e' Vmax 0.08 m/sec - LV E:e' septal ratio 11.3 ratio - LV E:e' lateral ratio 11.4 ratio - Aortic Valve Name Value Normal Range AV VTI 29.3 cm - AV mean gradient 8 mmHg - LVOT diameter 2 cm - LVOT VTI 29.7 cm - LVOT mean gradient 6 mmHg - SV LVOT 93 ml - YASMEEN (continuity VTI) 3.18 cm2 - Tricuspid Valve Name Value Normal Range TR Vmax 4.25 m/sec - TR peak gradient 72 mmHg - RAP 3 mmHg - RVSP 75 mmHg - Pulmonic Valve/Qp:Qs Name Value Normal Range PV Vmax 1.11 m/sec - PV peak gradient 5 mmHg - AZ end-diastolic Vmax 1.71 m/sec - PV acceleration time 77 msec - Alexis/IV: Voiding Method Indwelling Catheter IV Catheter Type [Left Upper PICC Line arm] IV Catheter Type [Left Forearm INT / Saline Lock ] IV Catheter Type [Right Hand] Peripheral IV IV Catheter Type [Left Foot] INT / Saline Lock IV Catheter Type [Right Peripheral IV Forearm] Active Medications - Current Medications Current Medications: Generic Name Dose Route Start Last Admin Trade Name Freq PRN Reason Stop Dose Admin Acetaminophen 650 mg 10/01/19 09:10 Tylenol PO Q6H PRN Pain MILD(1-3)/Fever >100.5/PALOMARES Albumin Human 25 gm 10/07/19 15:26 10/10/19 17:14 Alburx 25% (Albumin) IV 25 gm KINJAL PRN Administration Hypotension Albuterol 2.5 mg 10/01/19 09:10 Proventil IH Q3HRT PRN Shortness Of Breath Lipase/Protease/Amylase 1 each 10/02/19 11:[address] 10,500 Unit FEEDTUBE PRN PRN For Clogged Feeding Tube Apixaban 5 mg 10/05/19 11:00 10/10/19 10:51 Eliquis PO Not Given Q12HR CLARKE Ascorbic Acid 500 mg 10/01/19 16:00 10/10/19 09:58 Vitamin C PO 500 mg BID CLARKE Administration Dextrose 50 ml 10/01/19 09:10 D50w (25gm) Syringe IV Q30MIN PRN Hypoglycemia Protocol Epoetin Mukesh 10,000 unit 10/07/19 15:26 10/08/19 09:43 Procrit IV 10,000 unit KINJAL PRN Administration hemodialysis Fentanyl 50 mcg 10/01/19 15:03 Sublimaze IV Q10MIN PRN ANALGESIA Heparin Sodium (Porcine) 5,000 unit 10/07/19 15:26 Heparin IV KINJAL PRN hemodialysis Hydralazine HCl 10 mg 10/01/19 09:20 10/04/19 10:00 Apresoline IV 10 mg Q4HR PRN Administration Hypertension Hydrophilic Ointment 1 applic 10/04/19 14:47 Vaseline Lip Therapy TP Q2HR PRN Dry Lips Propofol 1,000 mg in 100 mls @ 1.905 mls/hr 10/01/19 14:00 10/10/19 13:43 Diprivan 10 Mg/Ml IV 50 mcg/kg/min TITR CLARKE 19.051 mls/hr Administration Protocol 5 MCG/KG/MIN Fentanyl Citrate 2,000 mcg in 100 mls @ 3.175 mls/hr 10/01/19 16:00 10/10/19 13:42 Fentanyl Drip Premix IV 4 mcg/kg/hr TITR CLARKE 12.701 mls/hr Administration Protocol 1 MCG/KG/HR Midazolam HCl 100 mg/ Sodium 100 mls @ 2 mls/hr 10/04/19 15:00 10/10/19 01:31 Chloride IV 5 mg/hr TITR CLARKE 5 mls/hr Administration Protocol 2 MG/HR Sodium Chloride 500 mls @ 10 mls/hr 10/04/19 16:00 Nacl 0.9% 500 Ml IV DIRECT CLARKE Norepinephrine 4 mg in 250 mls @ 37.5 mls/hr 10/04/19 18:00 10/09/19 23:16 Levophed Drip 4 Mg/Ns 250 Ml IV 0 mcg/min TITR CLARKE 0 mls/hr Titration Protocol 10 MCG/MIN Pantoprazole Sodium 80 mg/ 100 mls @ 10 mls/hr 10/10/19 09:00 10/10/19 12:02 Sodium Chloride IV 8 mg/hr DIRECT CLARKE 10 mls/hr Administration 8 MG/HR Sodium Chloride 100 mls @ 999 mls/hr 10/10/19 10:00 Nacl 0.9% IV KINJAL PRN Hypotension Insulin Human Isoph/Insulin Regular 60 unit 10/07/19 10:00 10/10/19 07:53 Humulin 70/30 SUB-Q Not Given BIDDIAB CLARKE Insulin Human Lispro 0 unit 10/01/19 12:00 10/10/19 12:04 Humalog SUB-Q Not Given Q6HR [facility] Protocol Methylprednisolone Sodium Succinate 40 mg 10/03/19 14:00 10/10/19 13:42 Solu-Medrol IV 40 mg Q8HR CLARKE Administration Metoclopramide HCl 10 mg 10/01/19 09:10 Reglan IV Q6H PRN Nausea And Vomiting Midazolam HCl 2 mg 10/04/19 14:47 Versed IV Q10MIN PRN Sedation Multi-Ingred Cream/Lotion/Oil/Oint 1 applic 10/04/19 14:47 Artificial Tears Ophth Oint OU Q4HR PRN Dry Eye(s) Naloxone HCl 0.1 mg 10/01/19 09:10 Naloxone IV Q2MIN PRN Res Rate </= 8 or 02 SAT < 92% Simple Syrup 15 ml 10/02/19 11:44 Simple Syrup FEEDTUBE PRN PRN Hypoglycemia Simple Syrup 30 ml 10/02/19 11:44 Simple Syrup FEEDTUBE PRN PRN Hypoglycemia Sodium Bicarbonate 325 mg 10/02/19 11:44 Sodium Bicarbonate FEEDTUBE PRN PRN For Clogged Feeding Tube Sodium Chloride 10 ml 10/01/19 10:00 10/10/19 09:58 Sodium Chloride Flush Syringe 10 Ml IV 10 ml BID CLARKE Administration Sodium Chloride 10 ml 10/01/19 09:10 Sodium Chloride Flush Syringe 10 Ml IV PRN PRN LINE FLUSH Sodium Chloride 5 ml 10/04/19 14:47 Nacl 0.9% 500 Ml IV DIRECT PRN ARTERIAL RAMP MANAGER Zinc Sulfate 220 mg 10/01/19 16:00 10/10/19 10:59 Zinc Sulfate PO 220 mg BID CLARKE Administration Nutrition/Malnutrition Assess - Dietary Evaluation Nutrition/Malnutrition Findings: Nutrition Notes Start: 10/01/19 14:13 Freq: Status: Active Protocol: Document 10/08/19 09:39 LP (Rec: 10/08/19 09:53 LP [email or web address]) Nutrition Notes Initial or Follow up Reassessment Current Diagnosis Acute Kidney Injury,Diabetes, Hypertension Other Pertinent Diagnosis COVID-19 (+) Current Diet Nepro at 30ml/hr Labs/Tests TG 428 Na 148 Pertinent Medications Propofol at 19ml/hr Height 5 ft 1 in Weight 63.503 kg [place] Body Weight (kg) 47.72 BMI 26.4 Weight Status Overweight Subjective/Other Information Pt tolerating TF at goal rate. Percent of energy/protein needs met: 100%/76% with propofol Burn Absent Trauma Absent GI Symptoms None Current % PO Negligible Minimum of two criteria No physical signs of malnutrition #1 Nutrition Diagnosis Inadequate oral intake Diagnosis Progress(for reassessment Continues documentation) Is patient on ventilator? Yes Is Patient Ambulatory and/or Out of Bed No REE-([facility]-confined to bed) [phone] Calculation Used for Recommendations [facility] Additional Notes Protein needs are 76-127g (1.2 -2g/kg) Fluid needs are 1ml/kcal Nutrition Intervention Change Diet Order: TF Nutrition Support: Nepro 1.8 at 30ml/hr Flush 130ml q4h When prone Nepro at 20ml/hr for 12 hr Flush 70ml q4h When Supine Nepro 1.8 at 40ml/ hr for the remaining 12 hr Flush 100ml q4h MD flush order 150ml q4h Kcal 1,296 Protein (gm) 58 Fluid (mL) 523 Goal #1 Meet at least 75% of kcal and protein needs Anticipated Discharge Needs: Unable to determine at this time Follow-Up By: 10/12/19 Additional Comments Follow for TF tolerance and Na
[2019-10-10] MEDS: EPOETIN ALFA 10,000 UNIT/1 ML INJ IV PRN (17:53)
[2019-10-10 21:21] LABS: Hematocrit 21.3 % (30.3-42.9); Hemoglobin 7.1 gm/dl (10.1-14.3)
[2019-10-11] MEDS: INSULIN LISPRO 100 UNIT/ML SUB-Q SCH ×5 (01:14→17:47)
[2019-10-11 04:51] LABS: ABG Base Excess -4.2 mmol/L (-2.0-3.0); ABG HCO3 22.3 mmol/L (20.0-26.0); ABG Methemoglobin 0.6 % (0.0-1.5); ABG Oxygen Saturation 97.5 % (95.0-99.0); ABG PCO2 48.8 mm Hg; ABG PH 7.277 pH Units (7.350-7.450); ABG PO2 109.2 mm Hg (80.0-90.0)
[2019-10-11] MEDS: PANTOPRAZOLE 80 MG in SODIUM CHLORIDE 0.9% 100 ML IV SCH ×2 (05:55→17:17)
[2019-10-11] MEDS: methylPREDNISolone Sod Succinate 40 MG/1 ML INJ IV SCH ×3 (05:57→22:00)
[2019-10-11 06:28] LABS: Hematocrit 22.4 % (30.3-42.9); Hemoglobin 7.3 gm/dl (10.1-14.3); Mean Corpuscular HGB Conc 33 % (30-34); Mean Corpuscular Volume 93 fl (79-97); Red Blood Count 2.42 M/mm3 (3.65-5.03); Red Cell Distribution Width 16.1 % (13.2-15.2)
[2019-10-11 06:29] LABS: Platelet Count 77 K/mm3 (140-440)
[2019-10-11] MEDS: fentaNYL DRIP Premix 2,000 MCG/100 ML BAG IV SCH ×3 (06:34→23:47)
--- NOTE | 2019-10-11 07:40 | XRay Report ---
CHEST - 1 VIEW 0629 hours INDICATION: follow up respiratory failure COMPARISON: Yesterday FINDINGS: Support devices: Stable support device positioning. Heart: Stable cardiomediastinal silhouette. Lungs/pleura: Minimal improvement in the bilateral lung opacities or congestive changes. No pleural effusion or pneumothorax. Additional findings: None. IMPRESSION: Slight improvement in the bilateral lung opacities. Signer Name: Beka Riley Jr, MD Signed: 10/11/2019 7:36 AM Workstation Name: [id number]
[2019-10-11 08:00] LABS: Anisocytosis Few; Band Neutrophils # (Manual) 1.1 K/mm3; Basophils % (Manual) 0 % (0.0-1.8); Eosinophils % (Manual) 0 % (0.0-4.3); Large Platelets Rare; Macrocytosis Few; Platelet Estimate Cons; Total Cells Counted 100
[2019-10-11] MEDS: ASCORBIC ACID 500 MG TAB PO SCH ×2 (11:35→22:00)
[2019-10-11] MEDS: ZINC SULFATE 220 MG CAP PO SCH ×2 (11:35→22:00)
--- NOTE | 2019-10-11 11:42 | Gastroenterology Progress Note ---
Assessment and Plan No more bleeding, agree with continuing to hold anticoagulation and trend hgb every 12 hours and transfuse if hemoglobin drops below 7. As of right now the clinical bleeding has stopped therefore we will not perform endoscopy as the risks of the endoscopy would outweigh the benefits at this juncture. However if patient does rebleed and has hemodynamically significant bleeding please call me back immediately and will reassess for emergent EGD. Once patient is recovered and fully stabilized would ideally have an EGD to risk stratify, especially if needs anticoagulation half-way. Once patient reaches that stage and is ready for an endoscopy please call GI back, otherwise we will sign off for now - Patient Problems (1) GI bleed Current Visit: Yes Status: Acute (2) Pneumonia due to severe acute respiratory syndrome coronavirus 2 (S ARS-CoV-2) Current Visit: Yes Status: Acute (3) Suspected 2019 novel coronavirus infection Current Visit: Yes Status: Acute Subjective Date of service: 10/11/19 Principal diagnosis: Ac. hypoxemic resp failure; ARDS; COVID-19 virus infxn; PNA; Severe sepsis Interval history: hgb stable, no further GIB overnight or this AM per nurse Objective - Constitutional Vitals: Temp Pulse Resp BP Pulse Ox 98.2 F 115 H 30 H 145/70 95 10/11/19 08:00 10/11/19 11:30 10/11/19 11:30 10/11/19 11:30 10/11/19 11:30 General appearance: other (intubated) - Labs CBC & Chem 7: 10/11/19 06:00 10/10/19 06:15 Labs: Laboratory Results - last 24 hr 10/10/19 10/10/19 10/10/19 06:15 12:18 18:21 WBC RBC Hgb Hct MCV MCH MCHC RDW Plt Count Add Manual Diff Complete Total Counted 100 Seg Neutrophils % Seg Neuts % (Manual) 93.0 H Band Neutrophils % 0 Lymphocytes % (Manual) 4.0 L Reactive Lymphs % (Man) 0 Monocytes % (Manual) 3.0 Eosinophils % (Manual) 0 Basophils % (Manual) 0 Metamyelocytes % 0 Myelocytes % 0 Promyelocytes % 0 Blast Cells % 0 Nucleated RBC % Not Reportable Seg Neutrophils # Man 26.3 H Band Neutrophils # 0.0 Lymphocytes # (Manual) 1.1 L Abs React Lymphs (Man) 0.0 Monocytes # (Manual) 0.8 Eosinophils # (Manual) 0.0 Basophils # (Manual) 0.0 Metamyelocytes # 0.0 Myelocytes # 0.0 Promyelocytes # 0.0 Blast Cells # 0.0 WBC Morphology Not Reportable Hypersegmented Neuts Not Reportable Hyposegmented Neuts Not Reportable Hypogranular Neuts Not Reportable Smudge Cells Not Reportable Toxic Granulation Not Reportable Toxic Vacuolation Not Reportable Dohle Bodies Not Reportable Pelger-Huet Anomaly Not Reportable Dona Rods Not Reportable Platelet Estimate Not Reportable Clumped Platelets Not Reportable Plt Clumps, EDTA Not Reportable Large Platelets Not Reportable Giant Platelets Not Reportable Platelet Satelliting Not Reportable Plt Morphology Comment Not Reportable RBC Morphology Not Reportable Dimorphic RBCs Not Reportable Polychromasia Not Reportable Hypochromasia Not Reportable Poikilocytosis Not Reportable Anisocytosis Few Microcytosis Few Macrocytosis Not Reportable Spherocytes Not Reportable Pappenheimer Bodies Not Reportable Sickle Cells Not Reportable Target Cells Not Reportable Tear Drop Cells Not Reportable Ovalocytes Not Reportable Helmet Cells Not Reportable Madden-Henagar Bodies Not Reportable Edison Rings Not Reportable [place] Cells Not Reportable Bite Cells Not Reportable Crenated Cell Not Reportable Elliptocytes Not Reportable Acanthocytes (Spur) Not Reportable Rouleaux Not Reportable Hemoglobin C Crystals Not Reportable Schistocytes Not Reportable Malaria parasites Not Reportable Cornelio Bodies Not Reportable Hem Pathologist Commnt No ABG pH ABG pCO2 ABG pO2 ABG HCO3 ABG O2 Saturation ABG O2 Content ABG Base Excess ABG Hemoglobin ABG Carboxyhemoglobin ABG Methemoglobin Oxyhemoglobin FiO2 POC Glucose 166 H 210 H 10/10/19 10/11/19 10/11/19 21:00 00:04 04:30 WBC RBC Hgb 7.1 L Hct 21.3 L MCV MCH MCHC RDW Plt Count Add Manual Diff Total Counted Seg Neutrophils % Seg Neuts % (Manual) Band Neutrophils % Lymphocytes % (Manual) Reactive Lymphs % (Man) Monocytes % (Manual) Eosinophils % (Manual) Basophils % (Manual) Metamyelocytes % Myelocytes % Promyelocytes % Blast Cells % Nucleated RBC % Seg Neutrophils # Man Band Neutrophils # Lymphocytes # (Manual) Abs React Lymphs (Man) Monocytes # (Manual) Eosinophils # (Manual) Basophils # (Manual) Metamyelocytes # Myelocytes # Promyelocytes # Blast Cells # WBC Morphology Hypersegmented Neuts Hyposegmented Neuts Hypogranular Neuts Smudge Cells Toxic Granulation Toxic Vacuolation Dohle Bodies Pelger-Huet Anomaly Dona Rods Platelet Estimate Clumped Platelets Plt Clumps, EDTA Large Platelets Giant Platelets Platelet Satelliting Plt Morphology Comment RBC Morphology Dimorphic RBCs Polychromasia Hypochromasia Poikilocytosis Anisocytosis Microcytosis Macrocytosis Spherocytes Pappenheimer Bodies Sickle Cells Target Cells Tear Drop Cells Ovalocytes Helmet Cells Madden-Henagar Bodies Edison Rings [place] Cells Bite Cells Crenated Cell Elliptocytes Acanthocytes (Spur) Rouleaux Hemoglobin C Crystals Schistocytes Malaria parasites Cornelio Bodies Hem Pathologist Commnt ABG pH 7.277 L ABG pCO2 48.8 ABG pO2 109.2 H ABG HCO3 22.3 ABG O2 Saturation 97.5 ABG O2 Content 9.2 ABG Base Excess -4.2 L ABG Hemoglobin 6.7 L ABG Carboxyhemoglobin 1.8 ABG Methemoglobin 0.6 Oxyhemoglobin 95.1 FiO2 60 POC Glucose 196 H 10/11/19 10/11/19 05:50 06:00 WBC 35.0 H RBC 2.42 L Hgb 7.3 L Hct 22.4 L MCV 93 MCH 30 MCHC 33 RDW 16.1 H Plt Count 77 L Add Manual Diff Complete Total Counted 100 Seg Neutrophils % Ham Marker Seg Neuts % (Manual) 91.0 H Band Neutrophils % 3.0 Lymphocytes % (Manual) 2.0 L Reactive Lymphs % (Man) 0 Monocytes % (Manual) 1.0 Eosinophils % (Manual) 0 Basophils % (Manual) 0 Metamyelocytes % 3.0 Myelocytes % 0 Promyelocytes % 0 Blast Cells % 0 Nucleated RBC % 6.0 H Seg Neutrophils # Man 31.9 H Band Neutrophils # 1.1 Lymphocytes # (Manual) 0.7 L Abs React Lymphs (Man) 0.0 Monocytes # (Manual) 0.4 Eosinophils # (Manual) 0.0 Basophils # (Manual) 0.0 Metamyelocytes # 1.1 Myelocytes # 0.0 Promyelocytes # 0.0 Blast Cells # 0.0 WBC Morphology Hypersegmented Neuts Not Reportable Hyposegmented Neuts Not Reportable Hypogranular Neuts Not Reportable Smudge Cells Not Reportable Toxic Granulation Not Reportable Toxic Vacuolation Not Reportable Dohle Bodies Not Reportable Pelger-Huet Anomaly Not Reportable Dona Rods Not Reportable Platelet Estimate Cons Clumped Platelets Not Reportable Plt Clumps, EDTA Not Reportable Large Platelets Rare Giant Platelets Not Reportable Platelet Satelliting Not Reportable Plt Morphology Comment Not Reportable RBC Morphology Not Reportable Dimorphic RBCs Not Reportable Polychromasia Few Hypochromasia Not Reportable Poikilocytosis Not Reportable Anisocytosis Few Microcytosis Not Reportable Macrocytosis Few Spherocytes Not Reportable Pappenheimer Bodies Not Reportable Sickle Cells Not Reportable Target Cells Not Reportable Tear Drop Cells Not Reportable Ovalocytes Not Reportable Helmet Cells Not Reportable Madden-Henagar Bodies Not Reportable Edison Rings Not Reportable Carmine Cells Not Reportable Bite Cells Not Reportable Crenated Cell Not Reportable Elliptocytes Not Reportable Acanthocytes (Spur) Not Reportable Rouleaux Not Reportable Hemoglobin C Crystals Not Reportable Schistocytes Not Reportable Malaria parasites Not Reportable Cornelio Bodies Not Reportable Hem Pathologist Commnt Yes ABG pH ABG pCO2 ABG pO2 ABG HCO3 ABG O2 Saturation ABG O2 Content ABG Base Excess ABG Hemoglobin ABG Carboxyhemoglobin ABG Methemoglobin Oxyhemoglobin FiO2 POC Glucose 230 H
[2019-10-11] MEDS ORDERED: SODIUM CHLORIDE 0.9% 100 ML IV PRN (13:50)
--- NOTE | 2019-10-11 13:54 | Progress Note ---
Assessment and Plan - Patient Problems (1) Acute kidney failure with tubular necrosis Current Visit: Yes Status: Acute Plan to address problem: Plan for isolated UF session today. Tolerated regular HD yesterday without any significant issues. Will monitor for signs of renal recovery. (2) GI bleed Current Visit: Yes Status: Acute Plan to address problem: GI consult reviewed, with repeat drop noted this am. Possible EGD if clinically stable per GI. Her level of azotemia can also be indicative of GI bleed process, (3) Acute respiratory failure with hypoxia Current Visit: Yes Status: Acute Plan to address problem: Vent management per pulmonary team. (4) Hypernatremia Current Visit: Yes Status: Acute Plan to address problem: Will manage with HD. (5) Metabolic acidosis Current Visit: Yes Status: Acute Plan to address problem: Will manage with HD. Monitor closely. (6) Pneumonia due to severe acute respiratory syndrome coronavirus 2 (SARS-CoV- 2) Current Visit: Yes Status: Acute Plan to address problem: Management per infectious disease team and pulmonology. Subjective Date of service: 10/11/19 Principal diagnosis: Ac. hypoxemic resp failure; ARDS; COVID-19 virus infxn; PNA; Severe sepsis Interval history: Remains intubated, on 60 FiO2, tolerated HD with UF 1.5L. Will plan for isolated UF session today. Objective - Vital Signs Vital signs: Vital Signs - 12hr 10/11/19 10/11/19 10/11/19 02:00 02:16 02:30 Temperature Pulse Rate 93 H 93 H 93 H Respiratory 30 H 30 H 30 H Rate Blood Pressure 122/70 126/69 128/75 O2 Sat by Pulse 96 95 96 Oximetry 10/11/19 10/11/19 10/11/19 02:46 03:00 03:16 Temperature Pulse Rate 94 H 93 H 93 H Respiratory 30 H 30 H 30 H Rate Blood Pressure 125/72 128/70 127/67 O2 Sat by Pulse 97 97 96 Oximetry 10/11/19 10/11/19 10/11/19 03:30 03:46 04:00 Temperature 98.2 F Pulse Rate 93 H 93 H 92 H Respiratory 30 H 30 H 30 H Rate Blood Pressure 129/71 126/72 126/78 O2 Sat by Pulse 97 98 97 Oximetry 10/11/19 10/11/19 10/11/19 04:16 04:30 04:35 Temperature Pulse Rate 93 H 93 H 95 H Respiratory 30 H 30 H Rate Blood Pressure 125/72 128/71 109/63 O2 Sat by Pulse 97 97 95 Oximetry 10/11/19 10/11/19 10/11/19 04:46 05:00 05:16 Temperature Pulse Rate 94 H 95 H 94 H Respiratory 30 H 30 H 30 H Rate Blood Pressure 114/64 109/63 115/66 O2 Sat by Pulse 95 100 95 Oximetry 10/11/19 10/11/19 10/11/19 05:30 05:46 06:00 Temperature Pulse Rate 95 H 96 H 95 H Respiratory 30 H 30 H 30 H Rate Blood Pressure 119/67 121/65 114/66 O2 Sat by Pulse 94 93 95 Oximetry 10/11/19 10/11/19 10/11/19 06:16 06:30 06:46 Temperature Pulse Rate 95 H 94 H 95 H Respiratory 30 H 30 H 30 H Rate Blood Pressure 115/68 117/65 118/65 O2 Sat by Pulse 94 94 96 Oximetry 10/11/19 10/11/19 10/11/19 07:00 07:16 07:30 Temperature Pulse Rate 96 H 95 H 94 H Respiratory 30 H 30 H 30 H Rate Blood Pressure 121/68 126/67 127/69 O2 Sat by Pulse 99 100 100 Oximetry 10/11/19 10/11/19 10/11/19 07:46 08:00 08:16 Temperature 98.2 F Pulse Rate 94 H 94 H 95 H Respiratory 30 H 30 H 30 H Rate Blood Pressure 120/70 132/67 138/73 O2 Sat by Pulse 100 100 100 Oximetry 10/11/19 10/11/19 10/11/19 08:30 08:46 09:00 Temperature Pulse Rate 95 H 96 H 100 H Respiratory 30 H 30 H 30 H Rate Blood Pressure 132/67 133/70 134/76 O2 Sat by Pulse 100 98 87 Oximetry 10/11/19 10/11/19 10/11/19 09:16 09:30 09:46 Temperature Pulse Rate 104 H 106 H 105 H Respiratory 31 H 30 H 30 H Rate Blood Pressure 147/72 150/68 127/76 O2 Sat by Pulse 85 89 88 Oximetry 10/11/19 10/11/19 10/11/19 10:00 10:16 10:30 Temperature Pulse Rate 107 H 108 H 109 H Respiratory 30 H 30 H 30 H Rate Blood Pressure 151/76 132/69 143/71 O2 Sat by Pulse 90 92 94 Oximetry 10/11/19 10/11/19 10/11/19 10:46 11:00 11:16 Temperature Pulse Rate 108 H 113 H 116 H Respiratory 30 H 30 H 30 H Rate Blood Pressure 135/70 149/77 160/77 O2 Sat by Pulse 94 94 94 Oximetry 10/11/19 10/11/19 10/11/19 11:30 11:46 12:00 Temperature Pulse Rate 115 H 112 H 116 H Respiratory 30 H 30 H 30 H Rate Blood Pressure 145/70 130/63 151/75 O2 Sat by Pulse 95 95 94 Oximetry 10/11/19 10/11/19 10/11/19 12:16 12:30 13:00 Temperature Pulse Rate 119 H 119 H 96 H Respiratory 29 H 30 H Rate Blood Pressure 142/82 162/69 131/60 O2 Sat by Pulse 96 96 96 Oximetry - General Appearance General appearance: sedated on ventilator, intubated EENT: ATNC Neck: no JVD Respiratory: Present: Decreased Breath Sounds Cardiology: regular Gastrointestinal: normal Integumentary: no rash Musculoskeletal: deferred - Lab 10/11/19 06:00 10/10/19 06:15 Most recent lab results ABG pH 7.277 pH Units (7.350-7.450) L 10/11/19 04:30 ABG pCO2 48.8 mm Hg 10/11/19 04:30 ABG pO2 109.2 mm Hg (80.0-90.0) H 10/11/19 04:30 ABG HCO3 22.3 mmol/L (20.0-26.0) 10/11/19 04:30 ABG O2 Saturation 97.5 % (95.0-99.0) 10/11/19 04:30 Calcium 8.9 mg/dL (8.4-10.2) 10/10/19 06:15 Phosphorus 4.70 mg/dL (2.5-4.5) H 10/01/19 12:45 Magnesium 2.50 mg/dL (1.7-2.3) H 10/01/19 12:45 Urine Creatinine 179.4 mg/dL (0.1-20.0) H 10/05/19 10:16 Urine Sodium 10 mmol/L 10/05/19 10:16 Urine Total Protein 66 mg/dL (5-11.8) H 10/05/19 10:16 - Allied health notes Allied health notes reviewed: nursing Medications & Allergies - Medications Allergies/Adverse Reactions: Allergies No Known Allergies Allergy (Verified 10/01/19 06:31) Active Medications: Generic Name Dose Route Start Last Admin Trade Name Freq PRN Reason Stop Dose Admin Acetaminophen 650 mg 10/01/19 09:10 Tylenol PO Q6H PRN Pain MILD(1-3)/Fever >100.5/PALOMARES Albumin Human 25 gm 10/07/19 15:26 10/10/19 17:14 Alburx 25% (Albumin) IV 25 gm KINJAL PRN Administration Hypotension Albuterol 2.5 mg 10/01/19 09:10 Proventil IH Q3HRT PRN Shortness Of Breath Lipase/Protease/Amylase 1 each 10/02/19 11:[address] 10,500 Unit FEEDTUBE PRN PRN For Clogged Feeding Tube Apixaban 5 mg 10/05/19 11:00 10/10/19 10:51 Eliquis PO Not Given Q12HR CLARKE Ascorbic Acid 500 mg 10/01/19 16:00 10/11/19 11:35 Vitamin C PO 500 mg BID CLARKE Administration Dextrose 50 ml 10/01/19 09:10 D50w (25gm) Syringe IV Q30MIN PRN Hypoglycemia Protocol Epoetin Mukesh 10,000 unit 10/07/19 15:26 10/10/19 17:53 Procrit IV 10,000 unit KINJAL PRN Administration hemodialysis Fentanyl 50 mcg 10/01/19 15:03 Sublimaze IV Q10MIN PRN ANALGESIA Heparin Sodium (Porcine) 5,000 unit 10/07/19 15:26 Heparin IV KINJAL PRN hemodialysis Hydralazine HCl 10 mg 10/01/19 09:20 10/04/19 10:00 Apresoline IV 10 mg Q4HR PRN Administration Hypertension Hydrophilic Ointment 1 applic 10/04/19 14:47 Vaseline Lip Therapy TP Q2HR PRN Dry Lips Propofol 1,000 mg in 100 mls @ 1.905 mls/hr 10/01/19 14:00 10/11/19 11:33 Diprivan 10 Mg/Ml IV 50 mcg/kg/min TITR CLARKE 19.051 mls/hr Administration Protocol 5 MCG/KG/MIN Fentanyl Citrate 2,000 mcg in 100 mls @ 3.175 mls/hr 10/01/19 16:00 10/11/19 06:34 Fentanyl Drip Premix IV 4 mcg/kg/hr TITR CLARKE 12.701 mls/hr Administration Protocol 1 MCG/KG/HR Midazolam HCl 100 mg/ Sodium 100 mls @ 2 mls/hr 10/04/19 15:00 10/10/19 21:36 Chloride IV 5 mg/hr TITR CLARKE 5 mls/hr Administration Protocol 2 MG/HR Sodium Chloride 500 mls @ 10 mls/hr 10/04/19 16:00 Nacl 0.9% 500 Ml IV DIRECT CLARKE Norepinephrine 4 mg in 250 mls @ 37.5 mls/hr 10/04/19 18:00 10/09/19 23:16 Levophed Drip 4 Mg/Ns 250 Ml IV 0 mcg/min TITR CLARKE 0 mls/hr Titration Protocol 10 MCG/MIN Pantoprazole Sodium 80 mg/ 100 mls @ 10 mls/hr 10/10/19 09:00 10/11/19 05:55 Sodium Chloride IV 8 mg/hr DIRECT CLARKE 10 mls/hr Administration 8 MG/HR Sodium Chloride 100 mls @ 999 mls/hr 10/10/19 10:00 Nacl 0.9% IV KINJAL PRN Hypotension Sodium Chloride 100 mls @ 999 mls/hr 10/11/19 13:50 Nacl 0.9% IV KINJAL PRN Hypotension Insulin Human Isoph/Insulin Regular 60 unit 10/07/19 10:00 10/10/19 07:53 Humulin 70/30 SUB-Q Not Given BIDDIAB [facility] Insulin Human Lispro 0 unit 10/01/19 12:00 10/11/19 06:35 Humalog SUB-Q 3 unit Q6HR [facility] Administration Protocol Methylprednisolone Sodium Succinate 40 mg 10/03/19 14:00 10/11/19 05:57 Solu-Medrol IV 40 mg Q8HR [facility] Administration Metoclopramide HCl 10 mg 10/01/19 09:10 Reglan IV Q6H PRN Nausea And Vomiting Midazolam HCl 2 mg 10/04/19 14:47 Versed IV Q10MIN PRN Sedation Multi-Ingred Cream/Lotion/Oil/Oint 1 applic 10/04/19 14:47 Artificial Tears Ophth Oint OU Q4HR PRN Dry Eye(s) Naloxone HCl 0.1 mg 10/01/19 09:10 Naloxone IV Q2MIN PRN Res Rate </= 8 or 02 SAT < 92% Simple Syrup 15 ml 10/02/19 11:44 Simple Syrup FEEDTUBE PRN PRN Hypoglycemia Simple Syrup 30 ml 10/02/19 11:44 Simple Syrup FEEDTUBE PRN PRN Hypoglycemia Sodium Bicarbonate 325 mg 10/02/19 11:44 Sodium Bicarbonate FEEDTUBE PRN PRN For Clogged Feeding Tube Sodium Chloride 10 ml 10/01/19 10:00 10/10/19 21:37 Sodium Chloride Flush Syringe 10 Ml IV 10 ml BID CLARKE Administration Sodium Chloride 10 ml 10/01/19 09:10 Sodium Chloride Flush Syringe 10 Ml IV PRN PRN LINE FLUSH Sodium Chloride 5 ml 10/04/19 14:47 Nacl 0.9% 500 Ml IV DIRECT PRN [employer]ERIAL [employer] DEVELOPER Zinc Sulfate 220 mg 10/01/19 16:00 10/11/19 11:35 Zinc Sulfate PO 220 mg BID CLARKE Administration
--- NOTE | 2019-10-11 14:20 | Progress Note ---
Subjective Date of service: 10/11/19 Principal diagnosis: Ac. hypoxemic resp failure; ARDS; COVID-19 virus infxn; PNA; Severe sepsis Interval history: Patient is seen today for: Ac. hypoxemic resp failure; ARDS; COVID-19 virus infection; Bilateral pneumonia; Severe sepsis; FANI Seen and examined at bedside; 24hour events reviewed; nursing and respiratory care staff consulted; no adverse overnight events reported to me; resting in bed; maintaining oxygen saturations at 100%, placed back supine yesterday at noon, on norepinephrine at 2mcg with MAP >65. s/p Femoral catheter placed yesterday,tolerated first session of HD yesterday 2L of fluid was removed No fevers, on Fentanyl at 4mcg/kg , Midazolam at 5mg/kg and propofol at 50mcg/kg with elevated triglycerides. Blood tinged NGT output with high residuals Currently on AC-VC 450/30/PEEP 20/FIO2 80% ABG 7.19/61.5/121/23.4 Objective Vital Signs - 12hr 10/11/19 10/11/19 10/11/19 02:30 02:46 03:00 Temperature Pulse Rate 93 H 94 H 93 H Respiratory 30 H 30 H 30 H Rate Blood Pressure 128/75 125/72 128/70 O2 Sat by Pulse 96 97 97 Oximetry 10/11/19 10/11/19 10/11/19 03:16 03:30 03:46 Temperature Pulse Rate 93 H 93 H 93 H Respiratory 30 H 30 H 30 H Rate Blood Pressure 127/67 129/71 126/72 O2 Sat by Pulse 96 97 98 Oximetry 10/11/19 10/11/19 10/11/19 04:00 04:16 04:30 Temperature 98.2 F Pulse Rate 92 H 93 H 93 H Respiratory 30 H 30 H 30 H Rate Blood Pressure 126/78 125/72 128/71 O2 Sat by Pulse 97 97 97 Oximetry 10/11/19 10/11/19 10/11/19 04:35 04:46 05:00 Temperature Pulse Rate 95 H 94 H 95 H Respiratory 30 H 30 H Rate Blood Pressure 109/63 114/64 109/63 O2 Sat by Pulse 95 95 100 Oximetry 10/11/19 10/11/19 10/11/19 05:16 05:30 05:46 Temperature Pulse Rate 94 H 95 H 96 H Respiratory 30 H 30 H 30 H Rate Blood Pressure 115/66 119/67 121/65 O2 Sat by Pulse 95 94 93 Oximetry 10/11/19 10/11/19 10/11/19 06:00 06:16 06:30 Temperature Pulse Rate 95 H 95 H 94 H Respiratory 30 H 30 H 30 H Rate Blood Pressure 114/66 115/68 117/65 O2 Sat by Pulse 95 94 94 Oximetry 10/11/19 10/11/19 10/11/19 06:46 07:00 07:16 Temperature Pulse Rate 95 H 96 H 95 H Respiratory 30 H 30 H 30 H Rate Blood Pressure 118/65 121/68 126/67 O2 Sat by Pulse 96 99 100 Oximetry 10/11/19 10/11/19 10/11/19 07:30 07:46 08:00 Temperature 98.2 F Pulse Rate 94 H 94 H 94 H Respiratory 30 H 30 H 30 H Rate Blood Pressure 127/69 120/70 132/67 O2 Sat by Pulse 100 100 100 Oximetry 10/11/19 10/11/19 10/11/19 08:16 08:30 08:46 Temperature Pulse Rate 95 H 95 H 96 H Respiratory 30 H 30 H 30 H Rate Blood Pressure 138/73 132/67 133/70 O2 Sat by Pulse 100 100 98 Oximetry 10/11/19 10/11/19 10/11/19 09:00 09:16 09:30 Temperature Pulse Rate 100 H 104 H 106 H Respiratory 30 H 31 H 30 H Rate Blood Pressure 134/76 147/72 150/68 O2 Sat by Pulse 87 85 89 Oximetry 10/11/19 10/11/19 10/11/19 09:46 10:00 10:16 Temperature Pulse Rate 105 H 107 H 108 H Respiratory 30 H 30 H 30 H Rate Blood Pressure 127/76 151/76 132/69 O2 Sat by Pulse 88 90 92 Oximetry 10/11/19 10/11/19 10/11/19 10:30 10:46 11:00 Temperature Pulse Rate 109 H 108 H 113 H Respiratory 30 H 30 H 30 H Rate Blood Pressure 143/71 135/70 149/77 O2 Sat by Pulse 94 94 94 Oximetry 10/11/19 10/11/19 10/11/19 11:16 11:30 11:46 Temperature Pulse Rate 116 H 115 H 112 H Respiratory 30 H 30 H 30 H Rate Blood Pressure 160/77 145/70 130/63 O2 Sat by Pulse 94 95 95 Oximetry 10/11/19 10/11/19 10/11/19 12:00 12:16 12:30 Temperature 99.5 F Pulse Rate 116 H 119 H 119 H Respiratory 30 H 29 H 30 H Rate Blood Pressure 151/75 142/82 162/69 O2 Sat by Pulse 94 96 96 Oximetry 10/11/19 10/11/19 10/11/19 12:46 13:00 13:16 Temperature Pulse Rate 118 H 114 H 115 H Respiratory 30 H 30 H 30 H Rate Blood Pressure 133/71 131/60 134/62 O2 Sat by Pulse 98 96 96 Oximetry 10/11/19 10/11/19 10/11/19 13:30 13:46 14:00 Temperature Pulse Rate 114 H 114 H 113 H Respiratory 30 H 30 H 30 H Rate Blood Pressure 116/63 119/58 119/66 O2 Sat by Pulse 95 95 94 Oximetry Constitutional: appears uncomfortable, other (elderly looking AAF with mildly increased resp effort at rest on mvs, supine) Eyes: non-icteric ENT: other (ETT 24 cm GLYNN, NGT with pinkiish effluent) Neck: supple, no lymphadenopathy, no JVD Effort: mildly labored Ascultation: Bilateral: diminished breath sounds, rales Percussion: Bilateral: not dull Cardiovascular: regular rate and rhythm, other (S1,S2, no murmurs) Gastrointestinal: normoactive bowel sounds, soft, non-tender, non-distended Integumentary: normal Extremities: no cyanosis, no edema, pulses normal, no ischemia or petechiae, other (Femoral HD catheter) Neurologic: other (unable to assess, sedated) Psychiatric: other (unable to assess, sedated) CBC and BMP: 10/11/19 06:00 10/10/19 06:15 ABG, PT/INR, D-dimer: ABG ABG pH 7.277 pH Units (7.350-7.450) L 10/11/19 04:30 ABG pCO2 48.8 mm Hg 10/11/19 04:30 ABG pO2 109.2 mm Hg (80.0-90.0) H 10/11/19 04:30 ABG O2 Saturation 97.5 % (95.0-99.0) 10/11/19 04:30 PT/INR, D-dimer PT 14.5 Sec. (12.2-14.9) 10/01/19 05:36 INR 1.15 (0.87-1.13) H 10/01/19 05:36 D-Dimer > 18950 ng/mlDDU (0-234) H 10/05/19 12:10 Abnormal lab findings: Abnormal Labs 10/01/19 10/01/19 10/01/19 05:36 05:36 05:36 WBC RBC Hgb Hct RDW Plt Count Coffee # Seg Neuts % (Manual) Lymphocytes % (Manual) Nucleated RBC % Seg Neutrophils # Seg Neutrophils # Man Lymphocytes # (Manual) Monocytes # (Manual) INR 1.15 H D-Dimer 1648.23 H ABG pH ABG pO2 ABG HCO3 ABG O2 Saturation ABG Base Excess ABG Hemoglobin Oxyhemoglobin Sodium Potassium Chloride Carbon Dioxide BUN Creatinine Glucose 424 H POC Glucose Lactic Acid Calcium Phosphorus Magnesium Ferritin 1745.0 H AST ALT Alkaline Phosphatase Lactate Dehydrogenase 822 H C-Reactive Protein 15.10 H NT-Pro-B Natriuret Pep Total Protein Albumin Triglycerides Urine WBC (Auto) Urine Creatinine Urine Total Protein Coronavirus (PCR) 10/01/19 10/01/19 10/01/19 05:36 05:36 06:31 WBC 12.8 H RBC Hgb Hct RDW Plt Count Coffee # Seg Neuts % (Manual) 93.0 H Lymphocytes % (Manual) 2.0 L Nucleated RBC % Seg Neutrophils # Seg Neutrophils # Man 11.9 H Lymphocytes # (Manual) 0.3 L Monocytes # (Manual) INR D-Dimer ABG pH ABG pO2 ABG HCO3 ABG O2 Saturation ABG Base Excess ABG Hemoglobin Oxyhemoglobin Sodium Potassium Chloride Carbon Dioxide 13 L BUN 34 H Creatinine 1.4 H Glucose 413 H POC Glucose Lactic Acid 7.20 H* Calcium Phosphorus Magnesium Ferritin AST 54 H ALT 64 H Alkaline Phosphatase Lactate Dehydrogenase C-Reactive Protein NT-Pro-B Natriuret Pep Total Protein Albumin 3.4 L Triglycerides Urine WBC (Auto) Urine Creatinine Urine Total Protein Coronavirus (PCR) 10/01/19 10/01/19 10/01/19 09:10 10:05 12:24 WBC RBC Hgb Hct RDW Plt Count Coffee # Seg Neuts % (Manual) Lymphocytes % (Manual) Nucleated RBC % Seg Neutrophils # Seg Neutrophils # Man Lymphocytes # (Manual) Monocytes # (Manual) INR D-Dimer 1957.06 H ABG pH ABG pO2 ABG HCO3 ABG O2 Saturation ABG Base Excess ABG Hemoglobin Oxyhemoglobin Sodium Potassium Chloride Carbon Dioxide BUN Creatinine Glucose POC Glucose 354 H Lactic Acid Calcium Phosphorus Magnesium Ferritin AST ALT Alkaline Phosphatase Lactate Dehydrogenase C-Reactive Protein NT-Pro-B Natriuret Pep Total Protein Albumin Triglycerides Urine WBC (Auto) Urine Creatinine 179.4 H Urine Total Protein Coronavirus (PCR) 10/01/19 10/01/19 10/01/19 12:24 12:24 12:45 WBC RBC Hgb Hct RDW Plt Count Coffee # Seg Neuts % (Manual) Lymphocytes % (Manual) Nucleated RBC % Seg Neutrophils # Seg Neutrophils # Man Lymphocytes # (Manual) Monocytes # (Manual) INR D-Dimer ABG pH ABG pO2 ABG HCO3 ABG O2 Saturation ABG Base Excess ABG Hemoglobin Oxyhemoglobin Sodium Potassium Chloride Carbon Dioxide BUN Creatinine Glucose 346 H POC Glucose Lactic Acid Calcium Phosphorus 4.70 H Magnesium 2.50 H Ferritin 1646.0 H AST ALT Alkaline Phosphatase Lactate Dehydrogenase 766 H C-Reactive Protein 18.60 H NT-Pro-B Natriuret Pep 1525 H Total Protein Albumin Triglycerides Urine WBC (Auto) Urine Creatinine Urine Total Protein Coronavirus (PCR) 10/01/19 10/01/19 10/01/19 14:30 17:20 18:15 WBC RBC Hgb Hct RDW Plt Count Coffee # Seg Neuts % (Manual) Lymphocytes % (Manual) Nucleated RBC % Seg Neutrophils # Seg Neutrophils # Man Lymphocytes # (Manual) Monocytes # (Manual) INR D-Dimer ABG pH 7.263 L 7.289 L ABG pO2 60.7 L 52.1 L ABG HCO3 ABG O2 Saturation 88.2 L 83.2 L ABG Base Excess -6.4 L -4.8 L ABG Hemoglobin 10.5 L Oxyhemoglobin 86.6 L 81.4 L Sodium Potassium Chloride Carbon Dioxide BUN Creatinine Glucose POC Glucose 299 H Lactic Acid Calcium Phosphorus Magnesium Ferritin AST ALT Alkaline Phosphatase Lactate Dehydrogenase C-Reactive Protein NT-Pro-B Natriuret Pep Total Protein Albumin Triglycerides Urine WBC (Auto) Urine Creatinine Urine Total Protein Coronavirus (PCR) 10/01/19 10/01/19 10/01/19 21:08 21:35 Unknown WBC RBC Hgb Hct RDW Plt Count Coffee # Seg Neuts % (Manual) Lymphocytes % (Manual) Nucleated RBC % Seg Neutrophils # Seg Neutrophils # Man Lymphocytes # (Manual) Monocytes # (Manual) INR D-Dimer ABG pH 7.327 L ABG pO2 75.1 L ABG HCO3 ABG O2 Saturation 94.5 L ABG Base Excess -4.4 L ABG Hemoglobin Oxyhemoglobin 92.8 L Sodium Potassium Chloride Carbon Dioxide BUN Creatinine Glucose POC Glucose 266 H Lactic Acid Calcium Phosphorus Magnesium Ferritin AST ALT Alkaline Phosphatase Lactate Dehydrogenase C-Reactive Protein NT-Pro-B Natriuret Pep Total Protein Albumin Triglycerides Urine WBC (Auto) Urine Creatinine Urine Total Protein Coronavirus (PCR) Positive A 10/02/19 10/02/19 10/02/19 01:23 03:55 05:18 WBC 17.8 H RBC Hgb Hct RDW Plt Count Coffee # Seg Neuts % (Manual) 93.0 H Lymphocytes % (Manual) 5.0 L Nucleated RBC % 1.0 H Seg Neutrophils # Seg Neutrophils # Man 16.6 H Lymphocytes # (Manual) 0.9 L Monocytes # (Manual) INR D-Dimer ABG pH 7.308 L ABG pO2 129.3 H ABG HCO3 ABG O2 Saturation ABG Base Excess -4.9 L ABG Hemoglobin 16.1 H Oxyhemoglobin Sodium Potassium Chloride Carbon Dioxide BUN Creatinine Glucose POC Glucose 291 H Lactic Acid Calcium Phosphorus Magnesium Ferritin AST ALT Alkaline Phosphatase Lactate Dehydrogenase C-Reactive Protein NT-Pro-B Natriuret Pep Total Protein Albumin Triglycerides Urine WBC (Auto) Urine Creatinine Urine Total Protein Coronavirus (PCR) 10/02/19 10/02/19 10/02/19 05:18 07:15 15:28 WBC RBC Hgb Hct RDW Plt Count Coffee # Seg Neuts % (Manual) Lymphocytes % (Manual) Nucleated RBC % Seg Neutrophils # Seg Neutrophils # Man Lymphocytes # (Manual) Monocytes # (Manual) INR D-Dimer ABG pH ABG pO2 ABG HCO3 ABG O2 Saturation ABG Base Excess ABG Hemoglobin Oxyhemoglobin Sodium Potassium Chloride 111.1 H Carbon Dioxide 19 L BUN 44 H Creatinine 2.4 H D Glucose 227 H POC Glucose 196 H Lactic Acid Calcium Phosphorus Magnesium Ferritin AST ALT Alkaline Phosphatase Lactate Dehydrogenase C-Reactive Protein NT-Pro-B Natriuret Pep Total Protein Albumin Triglycerides Urine WBC (Auto) Urine Creatinine 336.4 H Urine Total Protein Coronavirus (PCR) 10/02/19 10/03/19 10/03/19 17:57 00:32 04:02 WBC 17.2 H RBC Hgb Hct RDW Plt Count Coffee # Seg Neuts % (Manual) 95.0 H Lymphocytes % (Manual) 3.0 L Nucleated RBC % 2.0 H Seg Neutrophils # Seg Neutrophils # Man 16.3 H Lymphocytes # (Manual) 0.5 L Monocytes # (Manual) INR D-Dimer ABG pH ABG pO2 ABG HCO3 ABG O2 Saturation ABG Base Excess ABG Hemoglobin Oxyhemoglobin Sodium Potassium Chloride Carbon Dioxide BUN Creatinine Glucose POC Glucose 137 H 184 H Lactic Acid Calcium Phosphorus Magnesium Ferritin AST ALT Alkaline Phosphatase Lactate Dehydrogenase C-Reactive Protein NT-Pro-B Natriuret Pep Total Protein Albumin Triglycerides Urine WBC (Auto) Urine Creatinine Urine Total Protein Coronavirus (PCR) 10/03/19 10/03/19 10/03/19 04:02 04:26 05:20 WBC RBC Hgb Hct RDW Plt Count Coffee # Seg Neuts % (Manual) Lymphocytes % (Manual) Nucleated RBC % Seg Neutrophils # Seg Neutrophils # Man Lymphocytes # (Manual) Monocytes # (Manual) INR D-Dimer ABG pH 7.336 L ABG pO2 70.1 L ABG HCO3 ABG O2 Saturation 94.0 L ABG Base Excess -3.8 L ABG Hemoglobin Oxyhemoglobin 92.4 L Sodium Potassium Chloride 108.9 H Carbon Dioxide 19 L BUN 64 H Creatinine 2.1 H Glucose 212 H POC Glucose 197 H Lactic Acid Calcium Phosphorus Magnesium Ferritin AST ALT Alkaline Phosphatase Lactate Dehydrogenase C-Reactive Protein NT-Pro-B Natriuret Pep Total Protein Albumin Triglycerides Urine WBC (Auto) Urine Creatinine Urine Total Protein Coronavirus (PCR) 10/03/19 10/03/19 10/03/19 11:22 11:58 18:44 WBC RBC Hgb Hct RDW Plt Count Coffee # Seg Neuts % (Manual) Lymphocytes % (Manual) Nucleated RBC % Seg Neutrophils # Seg Neutrophils # Man Lymphocytes # (Manual) Monocytes # (Manual) INR D-Dimer ABG pH ABG pO2 ABG HCO3 ABG O2 Saturation ABG Base Excess ABG Hemoglobin Oxyhemoglobin Sodium Potassium Chloride Carbon Dioxide BUN Creatinine Glucose POC Glucose 248 H 245 H 324 H Lactic Acid Calcium Phosphorus Magnesium Ferritin AST ALT Alkaline Phosphatase Lactate Dehydrogenase C-Reactive Protein NT-Pro-B Natriuret Pep Total Protein Albumin Triglycerides Urine WBC (Auto) Urine Creatinine Urine Total Protein Coronavirus (PCR) 10/03/19 10/04/19 10/04/19 23:51 03:50 05:35 WBC RBC Hgb Hct RDW Plt Count Coffee # Seg Neuts % (Manual) Lymphocytes % (Manual) Nucleated RBC % Seg Neutrophils # Seg Neutrophils # Man Lymphocytes # (Manual) Monocytes # (Manual) INR D-Dimer ABG pH ABG pO2 129.4 H ABG HCO3 ABG O2 Saturation ABG Base Excess -3.5 L ABG Hemoglobin Oxyhemoglobin Sodium Potassium Chloride Carbon Dioxide BUN Creatinine Glucose POC Glucose 182 H 177 H Lactic Acid Calcium Phosphorus Magnesium Ferritin AST ALT Alkaline Phosphatase Lactate Dehydrogenase C-Reactive Protein NT-Pro-B Natriuret Pep Total Protein Albumin Triglycerides Urine WBC (Auto) Urine Creatinine Urine Total Protein Coronavirus (PCR) 10/04/19 10/04/19 10/04/19 11:39 16:30 16:30 WBC 21.2 H RBC Hgb Hct RDW 16.0 H Plt Count 93 L Coffee # Seg Neuts % (Manual) 92.0 H Lymphocytes % (Manual) 3.0 L Nucleated RBC % 4.0 H Seg Neutrophils # Seg Neutrophils # Man 19.5 H Lymphocytes # (Manual) 0.6 L Monocytes # (Manual) 1.1 H INR D-Dimer ABG pH ABG pO2 ABG HCO3 ABG O2 Saturation ABG Base Excess ABG Hemoglobin Oxyhemoglobin Sodium Potassium Chloride 109.0 H Carbon Dioxide 21 L BUN 94 H Creatinine 2.3 H Glucose 345 H POC Glucose 265 H Lactic Acid Calcium Phosphorus Magnesium Ferritin AST ALT Alkaline Phosphatase Lactate Dehydrogenase C-Reactive Protein NT-Pro-B Natriuret Pep Total Protein Albumin Triglycerides Urine WBC (Auto) Urine Creatinine Urine Total Protein Coronavirus (PCR) 10/04/19 10/04/19 10/04/19 18:04 18:50 23:19 WBC RBC Hgb Hct RDW Plt Count Coffee # Seg Neuts % (Manual) Lymphocytes % (Manual) Nucleated RBC % Seg Neutrophils # Seg Neutrophils # Man Lymphocytes # (Manual) Monocytes # (Manual) INR D-Dimer ABG pH 7.322 L ABG pO2 183.3 H ABG HCO3 18.1 L ABG O2 Saturation 99.1 H ABG Base Excess -7.2 L ABG Hemoglobin 11.8 L Oxyhemoglobin Sodium Potassium Chloride Carbon Dioxide BUN Creatinine Glucose POC Glucose 333 H 366 H Lactic Acid Calcium Phosphorus Magnesium Ferritin AST ALT Alkaline Phosphatase Lactate Dehydrogenase C-Reactive Protein NT-Pro-B Natriuret Pep Total Protein Albumin Triglycerides Urine WBC (Auto) Urine Creatinine Urine Total Protein Coronavirus (PCR) 10/05/19 10/05/19 10/05/19 04:00 05:05 06:00 WBC RBC Hgb Hct RDW Plt Count Coffee # Seg Neuts % (Manual) Lymphocytes % (Manual) Nucleated RBC % Seg Neutrophils # Seg Neutrophils # Man Lymphocytes # (Manual) Monocytes # (Manual) INR D-Dimer ABG pH 7.223 L ABG pO2 93.7 H ABG HCO3 19.4 L ABG O2 Saturation ABG Base Excess -8.3 L ABG Hemoglobin Oxyhemoglobin Sodium Potassium Chloride Carbon Dioxide BUN Creatinine Glucose POC Glucose 362 H Lactic Acid Calcium Phosphorus Magnesium Ferritin AST ALT Alkaline Phosphatase Lactate Dehydrogenase C-Reactive Protein NT-Pro-B Natriuret Pep Total Protein Albumin Triglycerides 518 H Urine WBC (Auto) Urine Creatinine Urine Total Protein Coronavirus (PCR) 10/05/19 10/05/19 10/05/19 06:00 06:00 10:16 WBC 18.6 H RBC Hgb Hct RDW 16.6 H Plt Count 78 L Coffee # Seg Neuts % (Manual) 95.0 H Lymphocytes % (Manual) 0 L Nucleated RBC % 4.0 H Seg Neutrophils # Seg Neutrophils # Man 17.7 H Lymphocytes # (Manual) 0.0 L Monocytes # (Manual) INR D-Dimer ABG pH ABG pO2 ABG HCO3 ABG O2 Saturation ABG Base Excess ABG Hemoglobin Oxyhemoglobin Sodium Potassium 5.2 H Chloride 110.9 H Carbon Dioxide 17 L BUN 101 H Creatinine 3.2 H Glucose 368 H POC Glucose Lactic Acid Calcium Phosphorus Magnesium Ferritin AST ALT Alkaline Phosphatase Lactate Dehydrogenase C-Reactive Protein NT-Pro-B Natriuret Pep Total Protein Albumin Triglycerides Urine WBC (Auto) Urine Creatinine 179.4 H Urine Total Protein 66 H Coronavirus (PCR) 10/05/19 10/05/19 10/05/19 10:17 11:43 12:10 WBC RBC Hgb Hct RDW Plt Count Coffee # Seg Neuts % (Manual) Lymphocytes % (Manual) Nucleated RBC % Seg Neutrophils # Seg Neutrophils # Man Lymphocytes # (Manual) Monocytes # (Manual) INR D-Dimer > 69713 H ABG pH ABG pO2 ABG HCO3 ABG O2 Saturation ABG Base Excess ABG Hemoglobin Oxyhemoglobin Sodium Potassium Chloride Carbon Dioxide BUN Creatinine Glucose POC Glucose 328 H Lactic Acid Calcium Phosphorus Magnesium Ferritin AST ALT Alkaline Phosphatase Lactate Dehydrogenase C-Reactive Protein NT-Pro-B Natriuret Pep Total Protein Albumin Triglycerides Urine WBC (Auto) 25.0 H Urine Creatinine Urine Total Protein Coronavirus (PCR) 10/05/19 10/05/19 10/06/19 17:35 17:57 00:46 WBC RBC Hgb Hct RDW Plt Count Coffee # Seg Neuts % (Manual) Lymphocytes % (Manual) Nucleated RBC % Seg Neutrophils # Seg Neutrophils # Man Lymphocytes # (Manual) Monocytes # (Manual) INR D-Dimer ABG pH ABG pO2 ABG HCO3 ABG O2 Saturation ABG Base Excess -3.8 L ABG Hemoglobin Oxyhemoglobin Sodium Potassium Chloride Carbon Dioxide BUN Creatinine Glucose POC Glucose 292 H 295 H Lactic Acid Calcium Phosphorus Magnesium Ferritin AST ALT Alkaline Phosphatase Lactate Dehydrogenase C-Reactive Protein NT-Pro-B Natriuret Pep Total Protein Albumin Triglycerides Urine WBC (Auto) Urine Creatinine Urine Total Protein Coronavirus (PCR) 10/06/19 10/06/19 10/06/19 03:32 06:07 06:07 WBC 20.5 H RBC Hgb Hct RDW 15.6 H Plt Count 79 L Coffee # 0.9 H Seg Neuts % (Manual) 91.0 H Lymphocytes % (Manual) 0 L Nucleated RBC % 2.0 H Seg Neutrophils # 18.4 H Seg Neutrophils # Man 18.7 H Lymphocytes # (Manual) 0.0 L Monocytes # (Manual) INR D-Dimer ABG pH 7.339 L ABG pO2 ABG HCO3 ABG O2 Saturation ABG Base Excess -2.4 L ABG Hemoglobin 11.5 L Oxyhemoglobin 94.5 L Sodium 147 H Potassium Chloride 108.6 H Carbon Dioxide BUN 102 H Creatinine 3.2 H Glucose 305 H POC Glucose Lactic Acid Calcium 7.8 L Phosphorus Magnesium Ferritin AST ALT Alkaline Phosphatase Lactate Dehydrogenase C-Reactive Protein NT-Pro-B Natriuret Pep Total Protein Albumin Triglycerides Urine WBC (Auto) Urine Creatinine Urine Total Protein Coronavirus (PCR) 10/06/19 10/06/19 10/06/19 06:07 06:33 10:25 WBC RBC Hgb Hct RDW Plt Count Coffee # Seg Neuts % (Manual) Lymphocytes % (Manual) Nucleated RBC % Seg Neutrophils # Seg Neutrophils # Man Lymphocytes # (Manual) Monocytes # (Manual) INR D-Dimer ABG pH ABG pO2 ABG HCO3 ABG O2 Saturation ABG Base Excess ABG Hemoglobin Oxyhemoglobin Sodium Potassium Chloride Carbon Dioxide BUN Creatinine Glucose POC Glucose 310 H 304 H Lactic Acid Calcium Phosphorus Magnesium Ferritin AST ALT Alkaline Phosphatase Lactate Dehydrogenase C-Reactive Protein NT-Pro-B Natriuret Pep Total Protein Albumin Triglycerides 467 H Urine WBC (Auto) Urine Creatinine Urine Total Protein Coronavirus (PCR) 10/06/19 10/06/19 10/06/19 16:20 16:51 Unknown WBC RBC Hgb Hct RDW Plt Count Coffee # Seg Neuts % (Manual) Lymphocytes % (Manual) Nucleated RBC % Seg Neutrophils # Seg Neutrophils # Man Lymphocytes # (Manual) Monocytes # (Manual) INR D-Dimer ABG pH 7.241 L 7.295 L ABG pO2 49.7 L 48.4 L ABG HCO3 ABG O2 Saturation 79.5 L 81.0 L ABG Base Excess -2.8 L -2.7 L ABG Hemoglobin 11.9 L Oxyhemoglobin 77.4 L 79.2 L Sodium Potassium Chloride Carbon Dioxide BUN Creatinine Glucose POC Glucose 346 H Lactic Acid Calcium Phosphorus Magnesium Ferritin AST ALT Alkaline Phosphatase Lactate Dehydrogenase C-Reactive Protein NT-Pro-B Natriuret Pep Total Protein Albumin Triglycerides Urine WBC (Auto) Urine Creatinine Urine Total Protein Coronavirus (PCR) 10/07/19 10/07/19 10/07/19 00:10 05:00 05:00 WBC 21.1 H RBC Hgb Hct RDW 15.3 H Plt Count 63 L Coffee # Seg Neuts % (Manual) 93.0 H Lymphocytes % (Manual) 1.0 L Nucleated RBC % 10.0 H Seg Neutrophils # Seg Neutrophils # Man 19.6 H Lymphocytes # (Manual) 0.2 L Monocytes # (Manual) INR D-Dimer ABG pH ABG pO2 ABG HCO3 ABG O2 Saturation ABG Base Excess ABG Hemoglobin Oxyhemoglobin Sodium 148 H Potassium Chloride Carbon Dioxide BUN 130 H Creatinine 4.2 H Glucose 228 H POC Glucose 227 H Lactic Acid Calcium 8.1 L Phosphorus Magnesium Ferritin AST ALT Alkaline Phosphatase Lactate Dehydrogenase C-Reactive Protein NT-Pro-B Natriuret Pep Total Protein Albumin Triglycerides Urine WBC (Auto) Urine Creatinine Urine Total Protein Coronavirus (PCR) 10/07/19 10/07/19 10/07/19 06:18 08:55 11:04 WBC RBC Hgb Hct RDW Plt Count Coffee # Seg Neuts % (Manual) Lymphocytes % (Manual) Nucleated RBC % Seg Neutrophils # Seg Neutrophils # Man Lymphocytes # (Manual) Monocytes # (Manual) INR D-Dimer ABG pH 7.342 L ABG pO2 170.9 H ABG HCO3 ABG O2 Saturation ABG Base Excess -2.9 L ABG Hemoglobin 10.7 L Oxyhemoglobin Sodium 149 H Potassium Chloride 107.7 H Carbon Dioxide BUN 130 H Creatinine 3.8 H Glucose 220 H POC Glucose 223 H Lactic Acid Calcium 8.1 L Phosphorus Magnesium Ferritin AST 136 H ALT 109 H Alkaline Phosphatase 263 H Lactate Dehydrogenase C-Reactive Protein NT-Pro-B Natriuret Pep Total Protein 4.8 L Albumin 2.7 L Triglycerides Urine WBC (Auto) Urine Creatinine Urine Total Protein Coronavirus (PCR) 10/07/19 10/07/19 10/07/19 11:56 19:33 Unknown WBC RBC Hgb Hct RDW Plt Count Coffee # Seg Neuts % (Manual) Lymphocytes % (Manual) Nucleated RBC % Seg Neutrophils # Seg Neutrophils # Man Lymphocytes # (Manual) Monocytes # (Manual) INR D-Dimer ABG pH 7.314 L ABG pO2 281.9 H ABG HCO3 ABG O2 Saturation 99.4 H ABG Base Excess ABG Hemoglobin 10.7 L Oxyhemoglobin Sodium Potassium Chloride Carbon Dioxide BUN Creatinine Glucose POC Glucose 225 H 198 H Lactic Acid Calcium Phosphorus Magnesium Ferritin AST ALT Alkaline Phosphatase Lactate Dehydrogenase C-Reactive Protein NT-Pro-B Natriuret Pep Total Protein Albumin Triglycerides Urine WBC (Auto) Urine Creatinine Urine Total Protein Coronavirus (PCR) 10/08/19 10/08/19 10/08/19 00:30 01:16 04:20 WBC 23.4 H RBC 3.45 L Hgb Hct RDW 15.8 H Plt Count 67 L Coffee # Seg Neuts % (Manual) 96.0 H Lymphocytes % (Manual) 1.5 L Nucleated RBC % 3.0 H Seg Neutrophils # Seg Neutrophils # Man 22.5 H Lymphocytes # (Manual) 0.4 L Monocytes # (Manual) INR D-Dimer ABG pH 7.309 L ABG pO2 305.9 H ABG HCO3 ABG O2 Saturation ABG Base Excess -4.1 L ABG Hemoglobin Oxyhemoglobin Sodium Potassium Chloride Carbon Dioxide BUN Creatinine Glucose POC Glucose 212 H Lactic Acid Calcium Phosphorus Magnesium Ferritin AST ALT Alkaline Phosphatase Lactate Dehydrogenase C-Reactive Protein NT-Pro-B Natriuret Pep Total Protein Albumin Triglycerides Urine WBC (Auto) Urine Creatinine Urine Total Protein Coronavirus (PCR) 10/08/19 10/08/19 10/08/19 05:45 05:45 05:45 WBC 24.2 H RBC 3.47 L Hgb Hct RDW 15.7 H Plt Count 67 L Coffee # Seg Neuts % (Manual) 97.0 H Lymphocytes % (Manual) 0 L Nucleated RBC % 6.0 H Seg Neutrophils # Seg Neutrophils # Man 23.5 H Lymphocytes # (Manual) 0.0 L Monocytes # (Manual) INR D-Dimer ABG pH ABG pO2 ABG HCO3 ABG O2 Saturation ABG Base Excess ABG Hemoglobin Oxyhemoglobin Sodium 148 H Potassium Chloride Carbon Dioxide BUN 137 H Creatinine 3.5 H Glucose 183 H POC Glucose Lactic Acid Calcium Phosphorus Magnesium Ferritin AST ALT Alkaline Phosphatase Lactate Dehydrogenase C-Reactive Protein NT-Pro-B Natriuret Pep Total Protein Albumin Triglycerides 428 H Urine WBC (Auto) Urine Creatinine Urine Total Protein Coronavirus (PCR) 10/08/19 10/08/19 10/08/19 06:06 18:32 21:41 WBC RBC Hgb Hct RDW Plt Count Coffee # Seg Neuts % (Manual) Lymphocytes % (Manual) Nucleated RBC % Seg Neutrophils # Seg Neutrophils # Man Lymphocytes # (Manual) Monocytes # (Manual) INR D-Dimer ABG pH ABG pO2 ABG HCO3 ABG O2 Saturation ABG Base Excess ABG Hemoglobin Oxyhemoglobin Sodium Potassium Chloride Carbon Dioxide BUN Creatinine Glucose POC Glucose 192 H 227 H 214 H Lactic Acid Calcium Phosphorus Magnesium Ferritin AST ALT Alkaline Phosphatase Lactate Dehydrogenase C-Reactive Protein NT-Pro-B Natriuret Pep Total Protein Albumin Triglycerides Urine WBC (Auto) Urine Creatinine Urine Total Protein Coronavirus (PCR) 10/09/19 10/09/19 10/09/19 00:43 04:55 05:30 WBC RBC Hgb Hct RDW Plt Count Coffee # Seg Neuts % (Manual) Lymphocytes % (Manual) Nucleated RBC % Seg Neutrophils # Seg Neutrophils # Man Lymphocytes # (Manual) Monocytes # (Manual) INR D-Dimer ABG pH 7.196 L* ABG pO2 121.3 H ABG HCO3 ABG O2 Saturation ABG Base Excess -4.9 L ABG Hemoglobin 9.0 L Oxyhemoglobin Sodium Potassium Chloride Carbon Dioxide BUN Creatinine Glucose POC Glucose 206 H Lactic Acid Calcium Phosphorus Magnesium Ferritin AST ALT Alkaline Phosphatase Lactate Dehydrogenase C-Reactive Protein NT-Pro-B Natriuret Pep Total Protein Albumin Triglycerides 427 H Urine WBC (Auto) Urine Creatinine Urine Total Protein Coronavirus (PCR) 10/09/19 10/09/19 10/09/19 05:30 06:22 12:38 WBC RBC Hgb Hct RDW Plt Count Coffee # Seg Neuts % (Manual) Lymphocytes % (Manual) Nucleated RBC % Seg Neutrophils # Seg Neutrophils # Man Lymphocytes # (Manual) Monocytes # (Manual) INR D-Dimer ABG pH ABG pO2 ABG HCO3 ABG O2 Saturation ABG Base Excess ABG Hemoglobin Oxyhemoglobin Sodium 147 H Potassium Chloride Carbon Dioxide 21 L BUN 111 H Creatinine 4.0 H Glucose 196 H POC Glucose 196 H 255 H Lactic Acid Calcium Phosphorus Magnesium Ferritin AST ALT Alkaline Phosphatase Lactate Dehydrogenase C-Reactive Protein NT-Pro-B Natriuret Pep Total Protein Albumin Triglycerides Urine WBC (Auto) Urine Creatinine Urine Total Protein Coronavirus (PCR) 10/09/19 10/09/19 10/09/19 16:40 18:23 23:42 WBC RBC Hgb 9.1 L Hct 27.2 L RDW Plt Count Coffee # Seg Neuts % (Manual) Lymphocytes % (Manual) Nucleated RBC % Seg Neutrophils # Seg Neutrophils # Man Lymphocytes # (Manual) Monocytes # (Manual) INR D-Dimer ABG pH ABG pO2 ABG HCO3 ABG O2 Saturation ABG Base Excess ABG Hemoglobin Oxyhemoglobin Sodium Potassium Chloride Carbon Dioxide BUN Creatinine Glucose POC Glucose 211 H 221 H Lactic Acid Calcium Phosphorus Magnesium Ferritin AST ALT Alkaline Phosphatase Lactate Dehydrogenase C-Reactive Protein NT-Pro-B Natriuret Pep Total Protein Albumin Triglycerides Urine WBC (Auto) Urine Creatinine Urine Total Protein Coronavirus (PCR) 10/10/19 10/10/19 10/10/19 03:35 06:11 06:15 WBC 28.3 H RBC 2.37 L Hgb 7.1 L Hct 22.0 L RDW 15.9 H Plt Count 75 L Coffee # Seg Neuts % (Manual) 93.0 H Lymphocytes % (Manual) 4.0 L Nucleated RBC % Seg Neutrophils # Seg Neutrophils # Man 26.3 H Lymphocytes # (Manual) 1.1 L Monocytes # (Manual) INR D-Dimer ABG pH 7.247 L ABG pO2 98.8 H ABG HCO3 ABG O2 Saturation ABG Base Excess -5.7 L ABG Hemoglobin 7.3 L Oxyhemoglobin 94.4 L Sodium Potassium Chloride Carbon Dioxide BUN Creatinine Glucose POC Glucose 169 H Lactic Acid Calcium Phosphorus Magnesium Ferritin AST ALT Alkaline Phosphatase Lactate Dehydrogenase C-Reactive Protein NT-Pro-B Natriuret Pep Total Protein Albumin Triglycerides Urine WBC (Auto) Urine Creatinine Urine Total Protein Coronavirus (PCR) 10/10/19 10/10/19 10/10/19 06:15 12:18 18:21 WBC RBC Hgb Hct RDW Plt Count Coffee # Seg Neuts % (Manual) Lymphocytes % (Manual) Nucleated RBC % Seg Neutrophils # Seg Neutrophils # Man Lymphocytes # (Manual) Monocytes # (Manual) INR D-Dimer ABG pH ABG pO2 ABG HCO3 ABG O2 Saturation ABG Base Excess ABG Hemoglobin Oxyhemoglobin Sodium 148 H Potassium Chloride Carbon Dioxide 20 L BUN 153 H Creatinine 5.1 H Glucose 157 H POC Glucose 166 H 210 H Lactic Acid Calcium Phosphorus Magnesium Ferritin AST ALT Alkaline Phosphatase Lactate Dehydrogenase C-Reactive Protein NT-Pro-B Natriuret Pep Total Protein Albumin Triglycerides Urine WBC (Auto) Urine Creatinine Urine Total Protein Coronavirus (PCR) 10/10/19 10/11/19 10/11/19 21:00 00:04 04:30 WBC RBC Hgb 7.1 L Hct 21.3 L RDW Plt Count Coffee # Seg Neuts % (Manual) Lymphocytes % (Manual) Nucleated RBC % Seg Neutrophils # Seg Neutrophils # Man Lymphocytes # (Manual) Monocytes # (Manual) INR D-Dimer ABG pH 7.277 L ABG pO2 109.2 H ABG HCO3 ABG O2 Saturation ABG Base Excess -4.2 L ABG Hemoglobin 6.7 L Oxyhemoglobin Sodium Potassium Chloride Carbon Dioxide BUN Creatinine Glucose POC Glucose 196 H Lactic Acid Calcium Phosphorus Magnesium Ferritin AST ALT Alkaline Phosphatase Lactate Dehydrogenase C-Reactive Protein NT-Pro-B Natriuret Pep Total Protein Albumin Triglycerides Urine WBC (Auto) Urine Creatinine Urine Total Protein Coronavirus (PCR) 10/11/19 10/11/19 10/11/19 05:50 06:00 13:52 WBC 35.0 H RBC 2.42 L Hgb 7.3 L Hct 22.4 L RDW 16.1 H Plt Count 77 L Coffee # Seg Neuts % (Manual) 91.0 H Lymphocytes % (Manual) 2.0 L Nucleated RBC % 6.0 H Seg Neutrophils # Seg Neutrophils # Man 31.9 H Lymphocytes # (Manual) 0.7 L Monocytes # (Manual) INR D-Dimer ABG pH ABG pO2 ABG HCO3 ABG O2 Saturation ABG Base Excess ABG Hemoglobin Oxyhemoglobin Sodium Potassium Chloride Carbon Dioxide BUN Creatinine Glucose POC Glucose 230 H 287 H Lactic Acid Calcium Phosphorus Magnesium Ferritin AST ALT Alkaline Phosphatase Lactate Dehydrogenase C-Reactive Protein NT-Pro-B Natriuret Pep Total Protein Albumin Triglycerides Urine WBC (Auto) Urine Creatinine Urine Total Protein Coronavirus (PCR) Allied health notes reviewed: nursing
--- NOTE | 2019-10-11 17:11 | Progress Note ---
Assessment and Plan Assessment and plan: --COVID positive patient; --Bloodstained/coffee-ground emesis/aspirate from the [place]; Resolved , no new episodes of bleeding ,GI evaluated , No indication for endoscopy at this point ,IV Protonix, very mild drop in H&H, Hemoglobin low stable at 7.4, closely monitor --Acute hypoxic respiratory failure. On vent Continue ventilatory support, wean as tolerated and extubate Pulmonary critical following . --Sepsis: Completed IV antibiotics per ID. --Bilateral pneumonia:Due to COVID-19 , supportive care --ARDS: Ventilatory support, nebulizers, pulmonary critical following --COVID 19 infection. Actemra x1 and remdesivir. Continue to trend inflammatory markers. Consider convalescent plasma therapy per ID. --COVID coagulopathy. Hold full anticoagulation Eliquis, resume tomorrow if no new episodes of bleeding --Transaminitis. Etiology secondary to sepsis/COVID. Continue to trend LFTs. --Acute kidney injury. Etiology secondary to ATN/sepsis superimposed on vasomotor nephropathy. HD as needed per nephrology --Coag negative staph bacteremia. Likely contaminant. We will closely monitor patient and adjust management as needed Plan of care reviewed with the patient and her nurse The high probability of a clinically significant, sudden or life threatening deterioration of the [respiratory, infectious, renal and GI] system(s) required my full and direct attention, intervention and personal management. The aggregate critical care time was [32] minutes. This time is in addition to time spent performing reported procedures but includes the following: [x] Data Review and interpretation [x] Patient assessment and monitoring of vital signs [x] Documentation [x] Medication orders and management 10/05/2019. Await convalescent plasma. Continue IV steroids, ceftriaxone, azithromycin and full anticoagulation. Creatinine elevated and thus not a candidate for Remdesivir. Patient actually with worsening creatinine secondary to acute kidney injury with ATN in the setting of septic shock superimposed on vasomotor nephropathy. Continue pressors to maintain MAP> 65. 10/06/2019. Patient currently on AC mode ventilation rate 30, tidal volume 450 FiO2 60% and PEEP of 18. Await convalescent plasma. Continue IV steroids, ceftriaxone, azithromycin and full anticoagulation. Creatinine elevated and thus not a candidate for Remdesivir. 10/07/2019. Patient currently on AC mode ventilation rate 30, tidal volume 450 FiO2 80% and PEEP of 18. Await convalescent plasma. Continue IV steroids, ceftriaxone, azithromycin and full anticoagulation. Creatinine elevated and thus not a candidate for Remdesivir. Cont. proning 10/08/2019. Patient currently on AC mode ventilation rate 30, tidal volume 450 FiO2 70% and PEEP of 20. Await convalescent plasma. Continue IV steroids, ceftriaxone, azithromycin and full anticoagulation. Creatinine elevated and thus not a candidate for Remdesivir. Cont. proning 10/09/19; mild bleeding in NG tube and slight melena, mild drop in H&H, GI consulted 10/10/19; GI evaluated the patient, patient hemodynamically stable, no endoscopy or intervention at this point 10/11/19; low stable hemoglobin 7.3 no new episodes of GI bleeding, closely m onitor, continue to hold Eliquis, resume when cleared by GI History Interval history: Patient seen and examined at the bedside this morning, patient's chart and medications reviewed. Isolation precautions and PPE protocols followed. Patient remains intubated on ventilatory support No new overnight events reported by the nursing Vital signs noted Hospitalist Physical - Constitutional Vitals: Temp Pulse Resp BP Pulse Ox 99.5 F 110 H 30 H 113/66 96 10/11/19 12:00 10/11/19 16:57 10/11/19 14:00 10/11/19 16:57 10/11/19 16:57 General appearance: Present: no acute distress, well-nourished, other (Patient on mechanical ventilation) - EENT Eyes: Present: PERRL, EOM intact - Neck Neck: Present: supple, normal ROM - Respiratory Respiratory effort: normal Respiratory: bilateral: diminished, rhonchi, negative: rales, wheezing - Cardiovascular Rhythm: regular Heart Sounds: Present: S1 & S2 - Extremities Extremities: no ischemia, No edema - Abdominal General gastrointestinal: soft, non-tender, non-distended, normal bowel sounds - Integumentary Integumentary: Present: clear, warm - Psychiatric Psychiatric: other (Intubated on vent) - Neurologic Neurologic: other (Intubated on vent) HEART Score - HEART Score Troponin: Troponin T 0.018 ng/mL (0.00-0.029) 10/01/19 05:36 Results - Labs CBC & Chem 7: 10/11/19 06:00 10/10/19 06:15 Labs: Laboratory Last Values WBC 35.0 K/mm3 (4.5-11.0) H 10/11/19 06:00 RBC 2.42 M/mm3 (3.65-5.03) L 10/11/19 06:00 Hgb 7.3 gm/dl (10.1-14.3) L 10/11/19 06:00 Hct 22.4 % (30.3-42.9) L 10/11/19 06:00 MCV 93 fl (79-97) 10/11/19 06:00 MCH 30 pg (28-32) 10/11/19 06:00 MCHC 33 % (30-34) 10/11/19 06:00 RDW 16.1 % (13.2-15.2) H 10/11/19 06:00 Plt Count 77 K/mm3 (140-440) L 10/11/19 06:00 Lymph % (Auto) Smash Fixer 10/01/19 06:31 Wood % (Auto) 4.4 % (0.0-7.3) 10/06/19 06:07 Eos % (Auto) 0.1 % (0.0-4.3) 10/06/19 06:07 Baso % (Auto) Smash Fixer 10/01/19 06:31 Lymph # Smash Fixer 10/01/19 06:31 Wood # 0.9 K/mm3 (0.0-0.8) H 10/06/19 06:07 Eos # 0.0 K/mm3 (0.0-0.4) 10/06/19 06:07 Baso # 0.0 K/mm3 (0.0-0.1) 10/06/19 06:07 Add Manual Diff Complete 10/11/19 06:00 Total Counted 100 10/11/19 06:00 Seg Neutrophils % Smash Fixer 10/11/19 06:00 Seg Neuts % (Manual) 91.0 % (40.0-70.0) H 10/11/19 06:00 Band Neutrophils % 3.0 % 10/11/19 06:00 Lymphocytes % (Manual) 2.0 % (13.4-35.0) L 10/11/19 06:00 Reactive Lymphs % (Man) 0 % 10/11/19 06:00 Monocytes % (Manual) 1.0 % (0.0-7.3) 10/11/19 06:00 Eosinophils % (Manual) 0 % (0.0-4.3) 10/11/19 06:00 Basophils % (Manual) 0 % (0.0-1.8) 10/11/19 06:00 Metamyelocytes % 3.0 % 10/11/19 06:00 Myelocytes % 0 % 10/11/19 06:00 Promyelocytes % 0 % 10/11/19 06:00 Blast Cells % 0 % 10/11/19 06:00 Nucleated RBC % 6.0 % (0.0-0.9) H 10/11/19 06:00 Seg Neutrophils # 18.4 K/mm3 (1.8-7.7) H 10/06/19 06:07 Seg Neutrophils # Man 31.9 K/mm3 (1.8-7.7) H 10/11/19 06:00 Band Neutrophils # 1.1 K/mm3 10/11/19 06:00 Lymphocytes # (Manual) 0.7 K/mm3 (1.2-5.4) L 10/11/19 06:00 Abs React Lymphs (Man) 0.0 K/mm3 10/11/19 06:00 Monocytes # (Manual) 0.4 K/mm3 (0.0-0.8) 10/11/19 06:00 Eosinophils # (Manual) 0.0 K/mm3 (0.0-0.4) 10/11/19 06:00 Basophils # (Manual) 0.0 K/mm3 (0.0-0.1) 10/11/19 06:00 Metamyelocytes # 1.1 K/mm3 10/11/19 06:00 Myelocytes # 0.0 K/mm3 10/11/19 06:00 Promyelocytes # 0.0 K/mm3 10/11/19 06:00 Blast Cells # 0.0 K/mm3 10/11/19 06:00 WBC Morphology Not Reportable 10/10/19 06:15 Hypersegmented Neuts Not Reportable 10/11/19 06:00 Hyposegmented Neuts Not Reportable 10/11/19 06:00 Hypogranular Neuts Not Reportable 10/11/19 06:00 Smudge Cells Not Reportable 10/11/19 06:00 Toxic Granulation Not Reportable 10/11/19 06:00 Toxic Vacuolation Not Reportable 10/11/19 06:00 Dohle Bodies Not Reportable 10/11/19 06:00 Pelger-Huet Anomaly Not Reportable 10/11/19 06:00 Dona Rods Not Reportable 10/11/19 06:00 Platelet Estimate Cons 10/11/19 06:00 Clumped Platelets Not Reportable 10/11/19 06:00 Plt Clumps, EDTA Not Reportable 10/11/19 06:00 Large Platelets Rare 10/11/19 06:00 Giant Platelets Not Reportable 10/11/19 06:00 Platelet Satelliting Not Reportable 10/11/19 06:00 Plt Morphology Comment Not Reportable 10/11/19 06:00 RBC Morphology Not Reportable 10/11/19 06:00 Dimorphic RBCs Not Reportable 10/11/19 06:00 Polychromasia Few 10/11/19 06:00 Hypochromasia Not Reportable 10/11/19 06:00 Poikilocytosis Not Reportable 10/11/19 06:00 Anisocytosis Few 10/11/19 06:00 Microcytosis Not Reportable 10/11/19 06:00 Macrocytosis Few 10/11/19 06:00 Spherocytes Not Reportable 10/11/19 06:00 Pappenheimer Bodies Not Reportable 10/11/19 06:00 Sickle Cells Not Reportable 10/11/19 06:00 Target Cells Not Reportable 10/11/19 06:00 Tear Drop Cells Not Reportable 10/11/19 06:00 Ovalocytes Not Reportable 10/11/19 06:00 Helmet Cells Not Reportable 10/11/19 06:00 Madden-Carlton Bodies Not Reportable 10/11/19 06:00 Rociada Rings Not Reportable 10/11/19 06:00 Galina Cells Not Reportable 10/11/19 06:00 Bite Cells Not Reportable 10/11/19 06:00 Crenated Cell Not Reportable 10/11/19 06:00 Elliptocytes Not Reportable 10/11/19 06:00 Acanthocytes (Spur) Not Reportable 10/11/19 06:00 Rouleaux Not Reportable 10/11/19 06:00 Hemoglobin C Crystals Not Reportable 10/11/19 06:00 Schistocytes Not Reportable 10/11/19 06:00 Malaria parasites Not Reportable 10/11/19 06:00 Cornelio Bodies Not Reportable 10/11/19 06:00 Hem Pathologist Commnt Yes 10/11/19 06:00 PT 14.5 Sec. (12.2-14.9) 10/01/19 05:36 INR 1.15 (0.87-1.13) H 10/01/19 05:36 APTT 28.6 Sec. (24.2-36.6) 10/01/19 05:36 D-Dimer > 74139 ng/mlDDU (0-234) H 10/05/19 12:10 Heparin Anti-Xa, Unfract Negative (Negative) 10/05/19 12:10 ABG pH 7.277 pH Units (7.350-7.450) L 10/11/19 04:30 ABG pCO2 48.8 mm Hg 10/11/19 04:30 ABG pO2 109.2 mm Hg (80.0-90.0) H 10/11/19 04:30 ABG HCO3 22.3 mmol/L (20.0-26.0) 10/11/19 04:30 ABG O2 Saturation 97.5 % (95.0-99.0) 10/11/19 04:30 ABG O2 Content 9.2 (0.0-44) 10/11/19 04:30 ABG Base Excess -4.2 mmol/L (-2.0-3.0) L 10/11/19 04:30 ABG Hemoglobin 6.7 gm/dl (12.0-16.0) L 10/11/19 04:30 ABG Carboxyhemoglobin 1.8 % (0.0-5.0) 10/11/19 04:30 ABG Methemoglobin 0.6 % (0.0-1.5) 10/11/19 04:30 Oxyhemoglobin 95.1 % (95.0-99.0) 10/11/19 04:30 FiO2 60 % 10/11/19 04:30 Sodium 148 mmol/L (137-145) H 10/10/19 06:15 Potassium 4.9 mmol/L (3.6-5.0) 10/10/19 06:15 Chloride 104.3 mmol/L (98-107) 10/10/19 06:15 Carbon Dioxide 20 mmol/L (22-30) L 10/10/19 06:15 Anion Gap 29 mmol/L 10/10/19 06:15 BUN 153 mg/dL (7-17) H 10/10/19 06:15 Creatinine 5.1 mg/dL (0.7-1.2) H 10/10/19 06:15 Estimated GFR 10 ml/min 10/10/19 06:15 BUN/Creatinine Ratio 30 % 10/10/19 06:15 Glucose 157 mg/dL (65-100) H 10/10/19 06:15 POC Glucose 287 (70-105) H 10/11/19 13:52 Ketones Quantitative Negative (Negative) 10/01/19 06:31 Lactic Acid 1.80 mmol/L (0.7-2.0) 10/02/19 08:04 Calcium 8.9 mg/dL (8.4-10.2) 10/10/19 06:15 Phosphorus 4.70 mg/dL (2.5-4.5) H 10/01/19 12:45 Magnesium 2.50 mg/dL (1.7-2.3) H 10/01/19 12:45 Ferritin 1646.0 ng/mL (13.0-400.0) H 10/01/19 12:24 Total Bilirubin 0.30 mg/dL (0.1-1.2) 10/07/19 11:04 Direct Bilirubin < 0.2 mg/dL (0-0.2) 10/01/19 05:36 Indirect Bilirubin 0.1 mg/dL 10/01/19 05:36 AST 136 units/L (5-40) H 10/07/19 11:04 ALT 109 units/L (7-56) H 10/07/19 11:04 Alkaline Phosphatase 263 units/L (35-129) H 10/07/19 11:04 Lactate Dehydrogenase 766 units/L (91-180) H 10/01/19 12:24 Troponin T 0.018 ng/mL (0.00-0.029) 10/01/19 05:36 C-Reactive Protein 18.60 mg/dL (0.00-1.30) H 10/01/19 12:24 NT-Pro-B Natriuret Pep 1525 pg/mL (0-900) H 10/01/19 12:45 Total Protein 4.8 g/dL (6.3-8.2) L 10/07/19 11:04 Albumin 2.7 g/dL (3.9-5) L 10/07/19 11:04 Albumin/Globulin Ratio 1.3 % 10/07/19 11:04 Triglycerides 144 mg/dL (2-149) 10/10/19 06:15 Procalcitonin 1.73 ng/mL (<0.15) 10/01/19 12:24 Urine Color Yellow (Yellow) 10/05/19 10:17 Urine Turbidity Cloudy (Clear) 10/05/19 10:17 Urine pH 5.0 (5.0-7.0) 10/05/19 10:17 Ur Specific Sellers 1.018 (1.003-1.030) 10/05/19 10:17 Urine Protein 30 mg/dl mg/dL (Negative) 10/05/19 10:17 Urine Glucose (UA) Neg mg/dL (Negative) 10/05/19 10:17 Urine Ketones Neg mg/dL (Negative) 10/05/19 10:17 Urine Blood Mod (Negative) 10/05/19 10:17 Urine Nitrite Neg (Negative) 10/05/19 10:17 Urine Bilirubin Neg (Negative) 10/05/19 10:17 Urine Urobilinogen < 2.0 mg/dL (<2.0) 10/05/19 10:17 Ur Leukocyte Esterase Neg (Negative) 10/05/19 10:17 Urine WBC (Auto) 25.0 /HPF (0.0-6.0) H 10/05/19 10:17 Urine RBC (Auto) 109.0 /HPF (0.0-6.0) 10/05/19 10:17 U Epithel Cells (Auto) 3.0 /HPF (0-13.0) 10/05/19 10:17 Urine Bacteria (Auto) 1+ /HPF (Negative) 10/05/19 10:17 Urine Mucus Few /HPF 10/05/19 10:17 Urine Creatinine 179.4 mg/dL (0.1-20.0) H 10/05/19 10:16 Urine Microalbumin 6.7 mg/dL (0.1-34.0) 10/01/19 09:10 Microalb/Creat Ratio 37.3 ug/mg 10/01/19 09:10 Urine Sodium 10 mmol/L 10/05/19 10:16 Urine Total Protein 66 mg/dL (5-11.8) H 10/05/19 10:16 Heparin-induced Plt Ab Negative (Negative) 10/05/19 12:10 UF Heparin High Dose 1 % Release 10/05/19 12:10 KIRA UFH Low Dose 0.1 0 % Release 10/05/19 12:10 KIRA UFH Low Dose 0.5 0 % Release 10/05/19 12:10 Coronavirus (PCR) Positive (Negative) A 10/01/19 Unknown Hepatitis A IgM Ab -1 (NonReactive) 10/08/19 08:30 Hep Bs Antigen Non-reactive (Negative) 10/08/19 08:30 Hep B Core IgM Ab Non-reactive (NonReactive) 10/08/19 08:30 Hepatitis C Antibody Non-reactive (NonReactive) 10/08/19 08:30 Blood Type B POSITIVE 10/03/19 13:50 Antibody Screen Negative 10/03/19 13:50 - Diagnostic Impressions Diagnostic Impressions: Echocardiogram 10/02/19 19:48 Transthoracic Echocardiogram Indication: Elevated BNP BP: 78/37 HR: 75 Conclusions *Global left ventricular systolic function is normal. *The estimated ejection fraction is 50-55%. *The right ventricular global systolic function is normal. *There is mild to moderate tricuspid regurgitation. *The right ventricular systolic pressure is calculated at 75 mmHg. *There is no evidence of mitral regurgitation. *There is no evidence of aortic regurgitation. *There is trace pulmonic regurgitation. *There is no pericardial effusion. *There is evidence of severe pulmonary hypertension. Findings Left Ventricle: Global left ventricular wall motion and contractility are within normal limits. Global left ventricular systolic function is normal. The estimated ejection fraction is 50-55%. Abnormal left ventricular diastolic filling is observed, consistent with impaired relaxation. Left Atrium: The left atrial chamber size is normal. Right Ventricle: The right ventricular cavity size is normal. The right ventricular global systolic function is normal. Right Atrium: The right atrial cavity size is normal. Aortic Valve: The aortic valve leaflets are mildly thickened. There is no evidence of aortic regurgitation. Mitral Valve: The mitral valve leaflets are mildly thickened. There is no evidence of mitral regurgitation. Tricuspid Valve: The tricuspid valve leaflets are normal. There is mild to moderate tricuspid regurgitation. The right ventricular systolic pressure is calculated at 75 mmHg. There is evidence of severe pulmonary hypertension. Pulmonic Valve: The pulmonic valve appears normal. There is trace pulmonic regurgitation. Pericardium: There is no pericardial effusion. Aorta: The aorta appears normal. Venous: The inferior vena cava appears normal. Measurements Chambers 2D Name Value Normal Range IVSd (2D) 1.1 cm (0.6 - 1.1) LVPWd (2D) 1.03 cm (0.6 - 1.1) IVS:LVPW ratio (2D) 1.07 ratio - LVIDd (2D) 2.7 cm (3.7 - 5.6) LVIDs (2D) 2.02 cm (2 - 3.8) LV FS (Teichholz) (2D) 25.2 % - LV FS (cube) (2D) 25.2 % - EF Teichholz (2D) 51.5 % - Ao root diameter (2D) 2.4 cm (2 - 3.7) LA dimension (AP) 2D 2.9 cm (1.9 - 4) LA:Ao ratio (2D) 1.21 ratio - Volumes/Mass Name Value Normal Range LA ESV SP 4CH (MOD) 23 ml - LA ESV SP 2CH (MOD) 21 ml - LA ESV BP (MOD) 22 ml - LA ESV BP (MOD) index 13.6 ml/m2 - LV EDV SP 4CH (MOD) 54 ml - LV ESV SP 4CH (MOD) 20 ml - EF SP 4CH (MOD) 63 % - LV EDV SP 2CH (MOD) 48 ml - LV ESV SP 2CH (MOD) 20 ml - EF SP 2CH (MOD) 58 % - LV EDV BP 51 ml - LV ESV BP 20 ml - BP EF (MOD) 61 % - Diastolic/Systolic Function Name Value Normal Range MV E-wave Vmax 0.94 m/sec - MV deceleration time 218 msec - MV A-wave Vmax 1.06 m/sec - MV E:A ratio 0.9 ratio - LV septal e' Vmax 0.08 m/sec - LV lateral e' Vmax 0.08 m/sec - LV E:e' septal ratio 11.3 ratio - LV E:e' lateral ratio 11.4 ratio - Aortic Valve Name Value Normal Range AV VTI 29.3 cm - AV mean gradient 8 mmHg - LVOT diameter 2 cm - LVOT VTI 29.7 cm - LVOT mean gradient 6 mmHg - SV LVOT 93 ml - YASMEEN (continuity VTI) 3.18 cm2 - Tricuspid Valve Name Value Normal Range TR Vmax 4.25 m/sec - TR peak gradient 72 mmHg - RAP 3 mmHg - RVSP 75 mmHg - Pulmonic Valve/Qp:Qs Name Value Normal Range PV Vmax 1.11 m/sec - PV peak gradient 5 mmHg - [place] end-diastolic Vmax 1.71 m/sec - PV acceleration time 77 msec - Alexis/IV: Voiding Method Indwelling Catheter IV Catheter Type [Left Femoral VAS Cath ] IV Catheter Type [Left Upper PICC Line arm] IV Catheter Type [Left Forearm INT / Saline Lock ] IV Catheter Type [Right Hand] Peripheral IV IV Catheter Type [Left Foot] INT / Saline Lock IV Catheter Type [Right Peripheral IV Forearm] Active Medications - Current Medications Current Medications: Generic Name Dose Route Start Last Admin Trade Name Freq PRN Reason Stop Dose Admin Acetaminophen 650 mg 10/01/19 09:10 10/11/19 14:20 Tylenol PO 650 mg Q6H PRN Administration Pain MILD(1-3)/Fever >100.5/PALOMARES Albumin Human 25 gm 10/07/19 15:26 10/10/19 17:14 Alburx 25% (Albumin) IV 25 gm KINJAL PRN Administration Hypotension Albuterol 2.5 mg 10/01/19 09:10 Proventil IH Q3HRT PRN Shortness Of Breath Lipase/Protease/Amylase 1 each 10/02/19 11:44 Pancreaze 10,500 Unit FEEDTUBE PRN PRN For Clogged Feeding Tube Apixaban 5 mg 10/05/19 11:00 10/10/19 10:51 Eliquis PO Not Given Q12HR CLARKE Ascorbic Acid 500 mg 10/01/19 16:00 10/11/19 11:35 Vitamin C PO 500 mg BID CLARKE Administration Dextrose 50 ml 10/01/19 09:10 D50w (25gm) Syringe IV Q30MIN PRN Hypoglycemia Protocol Epoetin Mukesh 10,000 unit 10/07/19 15:26 10/10/19 17:53 Procrit IV 10,000 unit KINJAL PRN Administration hemodialysis Fentanyl 50 mcg 10/01/19 15:03 Sublimaze IV Q10MIN PRN ANALGESIA Heparin Sodium (Porcine) 5,000 unit 10/07/19 15:26 Heparin IV KINJAL PRN hemodialysis Hydralazine HCl 10 mg 10/01/19 09:20 10/04/19 10:00 Apresoline IV 10 mg Q4HR PRN Administration Hypertension Hydrophilic Ointment 1 applic 10/04/19 14:47 Vaseline Lip Therapy TP Q2HR PRN Dry Lips Propofol 1,000 mg in 100 mls @ 1.905 mls/hr 10/01/19 14:00 10/11/19 11:33 Diprivan 10 Mg/Ml IV 50 mcg/kg/min TITR CLARKE 19.051 mls/hr Administration Protocol 5 MCG/KG/MIN Fentanyl Citrate 2,000 mcg in 100 mls @ 3.175 mls/hr 10/01/19 16:00 10/11/19 06:34 Fentanyl Drip Premix IV 4 mcg/kg/hr TITR CLARKE 12.701 mls/hr Administration Protocol 1 MCG/KG/HR Midazolam HCl 100 mg/ Sodium 100 mls @ 2 mls/hr 10/04/19 15:00 10/10/19 21:36 Chloride IV 5 mg/hr TITR CLARKE 5 mls/hr Administration Protocol 2 MG/HR Sodium Chloride 500 mls @ 10 mls/hr 10/04/19 16:00 Nacl 0.9% 500 Ml IV DIRECT CLARKE Norepinephrine 4 mg in 250 mls @ 37.5 mls/hr 10/04/19 18:00 10/09/19 23:16 Levophed Drip 4 Mg/Ns 250 Ml IV 0 mcg/min TITR CLARKE 0 mls/hr Titration Protocol 10 MCG/MIN Pantoprazole Sodium 80 mg/ 100 mls @ 10 mls/hr 10/10/19 09:00 10/11/19 05:55 Sodium Chloride IV 8 mg/hr DIRECT CLARKE 10 mls/hr Administration 8 MG/HR Sodium Chloride 100 mls @ 999 mls/hr 10/10/19 10:00 Nacl 0.9% IV KINJAL PRN Hypotension Sodium Chloride 100 mls @ 999 mls/hr 10/11/19 13:50 Nacl 0.9% IV KINJAL PRN Hypotension Insulin Human Isoph/Insulin Regular 60 unit 10/07/19 10:00 10/10/19 07:53 Humulin 70/30 SUB-Q Not Given BIDDIAB [facility] Insulin Human Lispro 0 unit 10/01/19 12:00 10/11/19 14:19 Humalog SUB-Q 4 unit Q6HR CLARKE Administration Protocol Methylprednisolone Sodium Succinate 40 mg 10/03/19 14:00 10/11/19 14:20 Solu-Medrol IV 40 mg Q8HR CLARKE Administration Metoclopramide HCl 10 mg 10/01/19 09:10 Reglan IV Q6H PRN Nausea And Vomiting Midazolam HCl 2 mg 10/04/19 14:47 Versed IV Q10MIN PRN Sedation Multi-Ingred Cream/Lotion/Oil/Oint 1 applic 10/04/19 14:47 Artificial Tears Ophth Oint OU Q4HR PRN Dry Eye(s) Naloxone HCl 0.1 mg 10/01/19 09:10 Naloxone IV Q2MIN PRN Res Rate </= 8 or 02 SAT < 92% Simple Syrup 15 ml 10/02/19 11:44 Simple Syrup FEEDTUBE PRN PRN Hypoglycemia Simple Syrup 30 ml 10/02/19 11:44 Simple Syrup FEEDTUBE PRN PRN Hypoglycemia Sodium Bicarbonate 325 mg 10/02/19 11:44 Sodium Bicarbonate FEEDTUBE PRN PRN For Clogged Feeding Tube Sodium Chloride 10 ml 10/01/19 10:00 10/10/19 21:37 Sodium Chloride Flush Syringe 10 Ml IV 10 ml BID CLRAKE Administration Sodium Chloride 10 ml 10/01/19 09:10 Sodium Chloride Flush Syringe 10 Ml IV PRN PRN LINE FLUSH Sodium Chloride 5 ml 10/04/19 14:47 Nacl 0.9% 500 Ml IV DIRECT PRN ARTERIAL SLATE ROOFER HELPER Zinc Sulfate 220 mg 10/01/19 16:00 10/11/19 11:35 Zinc Sulfate PO 220 mg BID CLARKE Administration Nutrition/Malnutrition Assess - Dietary Evaluation Nutrition/Malnutrition Findings: Nutrition Notes Start: 10/01/19 14:13 Freq: Status: Active Protocol: Document 10/08/19 09:39 LP (Rec: 10/08/19 09:53 LP [id number]) Nutrition Notes Initial or Follow up Reassessment Current Diagnosis Acute Kidney Injury,Diabetes, Hypertension Other Pertinent Diagnosis COVID-19 (+) Current Diet Nepro at 30ml/hr Labs/Tests TG 428 Na 148 Pertinent Medications Propofol at 19ml/hr Height 5 ft 1 in Weight 63.503 kg [place] Body Weight (kg) 47.72 BMI 26.4 Weight Status Overweight Subjective/Other Information Pt tolerating TF at goal rate. Percent of energy/protein needs met: 100%/76% with propofol Burn Absent Trauma Absent GI Symptoms None Current % PO Negligible Minimum of two criteria No physical signs of malnutrition #1 Nutrition Diagnosis Inadequate oral intake Diagnosis Progress(for reassessment Continues documentation) Is patient on ventilator? Yes Is Patient Ambulatory and/or Out of Bed No REE-([place]-St. Jeor-confined to bed) [phone] Calculation Used for Recommendations [place]-St Jeor Additional Notes Protein needs are 76-127g (1.2 -2g/kg) Fluid needs are 1ml/kcal Nutrition Intervention Change Diet Order: TF Nutrition Support: Nepro 1.8 at 30ml/hr Flush 130ml q4h When prone Nepro at 20ml/hr for 12 hr Flush 70ml q4h When Supine Nepro 1.8 at 40ml/ hr for the remaining 12 hr Flush 100ml q4h MD flush order 150ml q4h Kcal 1,296 Protein (gm) 58 Fluid (mL) 523 Goal #1 Meet at least 75% of kcal and protein needs Anticipated Discharge Needs: Unable to determine at this time Follow-Up By: 10/12/19 Additional Comments Follow for TF tolerance and Na
[2019-10-11] MEDS: MIDAZOLAM 100 MG in SODIUM CHLORIDE 0.9% 80 ML IV SCH (17:15)
[2019-10-12] MEDS: INSULIN LISPRO 100 UNIT/ML SUB-Q SCH (01:02)
[2019-10-12] MEDS ORDERED: EPINEPHrine 1 MG/10 ML SYRINGE ONE (03:30)
[2019-10-12] MEDS ORDERED: SODIUM BICARB 8.4% 50 MEQ/50 ML SYRINGE IV ONE (03:30)
[2019-10-12 05:01] VITALS: BP 101/13
--- NOTE | 2019-10-12 10:06 | Discharge Summary ---
Providers - Providers Date of Admission: 10/01/19 08:05 Date of discharge: 10/12/19 Attending physician: AGL MULLEN 10/01/19 08:09 Consult to Physician [CONS] Routine Comment: Brendon @ notified @ 08:56- LXM Consulting Provider: MADAY IGNACIO Physician Instructions: Reason For Exam: Critical Care Management 10/01/19 08:32 Consult to Physician [CONS] Routine Comment: Consulting Provider: BOUCHRA PALOMARES Physician Instructions: Reason For Exam: PUI -SEPSIS 10/01/19 09:11 Consult to Dietitian/Nutrition [CONS] Routine Physician Instructions: Reason For Exam: Reason for Consult: Malnutrition 10/01/19 15:03 Consult to Dietitian/Nutrition [CONS] Routine Physician Instructions: Reason For Exam: Reason for Consult: Evaluate nutritional intake 10/01/19 15:34 Consult to Dietitian/Nutrition [CONS] Routine Physician Instructions: Reason For Exam: Reason for Consult: Evaluate nutritional intake 10/02/19 11:32 Consult to Dietitian/Nutrition [CONS] Routine Physician Instructions: Reason For Exam: Reason for Consult: Write/Manage Tube Feeding 10/04/19 12:26 Consult to Dietitian/Nutrition [CONS] Routine Physician Instructions: Reason For Exam: Reason for Consult: Write/Manage Tube Feeding 10/04/19 14:42 Consult to PICC Line RN [CONS] Stat Reason For Exam: high alert meds Type Line:: PICC 10/04/19 14:47 Consult to Dietitian/Nutrition [CONS] Routine Physician Instructions: Reason For Exam: Reason for Consult: Evaluate nutritional intake 10/05/19 10:03 Consult to Physician [CONS] Urgent Comment: Consulting Provider: JACKIE SMALLS Physician Instructions: Reason For Exam: FANI in COVID patient 10/07/19 12:02 Consult to Physician [CONS] Routine Comment: Consulting Provider: ROBBY FREY Physician Instructions: 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
== END 2019-10-12 03:51 | DRG 870 ==
LOC: ED 04:50 → CC1 08:05
PROVIDERS: ADMIT Internal Medicine; ATTEND Internal Medicine
PROC: 03HY32Z Insertion of Monitoring Device into Upper Artery, Percutaneous Approach (ICD-10-PCS; 2019-10-04)
PROC: 5A1955Z Respiratory Ventilation, Greater than 96 Consecutive Hours (ICD-10-PCS; principal; 2019-10-05)
PROC: 0BH17EZ Insertion of Endotracheal Airway into Trachea, Via Natural or Artificial Opening (ICD-10-PCS; 2019-10-05)
PROC: 4A033R1 Measurement of Arterial Saturation, Peripheral, Percutaneous Approach (ICD-10-PCS; 2019-10-06)
PROC: 5A1D70Z Performance of Urinary Filtration, Intermittent, Less than 6 Hours Per Day (ICD-10-PCS; 2019-10-09)
PROC: 5A1D70Z Performance of Urinary Filtration, Intermittent, Less than 6 Hours Per Day (ICD-10-PCS; 2019-10-10)
PROC: 5A1D70Z Performance of Urinary Filtration, Intermittent, Less than 6 Hours Per Day (ICD-10-PCS; 2019-10-11)
PROC: 02HV33Z Insertion of Infusion Device into Superior Vena Cava, Percutaneous Approach (ICD-10-PCS; 2019-10-11)
PROC: B5181ZA Fluoroscopy of Superior Vena Cava using Low Osmolar Contrast, Guidance (ICD-10-PCS; 2019-10-11)
DX: A41.89 Other specified sepsis (principal); U07.1 COVID-19; J96.01 Acute respiratory failure with hypoxia; J12.89 Other viral pneumonia; J96.02 Acute respiratory failure with hypercapnia; N17.0 Acute kidney failure with tubular necrosis; D68.69 Other thrombophilia; I26.99 Other pulmonary embolism without acute cor pulmonale; K92.2 Gastrointestinal hemorrhage, unspecified; E87.0 Hyperosmolality and hypernatremia; E87.2 Acidosis; I16.0 Hypertensive urgency; E78.5 Hyperlipidemia, unspecified; I10 Essential (primary) hypertension; E11.9 Type 2 diabetes mellitus without complications; R74.0 Nonspecific elevation of levels of transaminase and lactic acid dehydrogenase [LDH]; D69.6 Thrombocytopenia, unspecified; R13.12 Dysphagia, oropharyngeal phase; Z79.899 Other long term (current) drug therapy
CPT/HCPCS: 31500; 36415; 36600; 36620; 71045; 80048; 80053; 80074; 80076; 81001; 82010; 82043; 82140; 82570; 82728; 82803; 82947; 82962; 83615; 83735; 83880; 84100; 84145; 84156; 84300; 84478; 84484; 85007; 85014; 85018; 85025; 85379; 85610; 85730; 86022; 86140; 86850; 86900; 86901; 87040; 87070; 87086; 87205; 93005; 93306; 94002; 94003; 94640; 94644; 94760; G0378; C9113; J0171; J0360; J0456; J0696; J0885; J1644; J1650; J1815; J2250; J2704; J2765; J2920; J2930; J3010; J7030; J7042; J7050; P9047; U0003-CS